=== PATIENT | female | born 1970 | race Caucasian/White ===

== ENCOUNTER 2017-01-31 16:48 | Emergency (ER) | payer OTHER ==
[~2017-01-31] VITALS: Ht 160 cm; Wt 90.4 kg
[~2017-01-31 16:48] MED LIST: AMPH20TA2 PO; ASPEC81 PO; CARB200T PO; CLON0.5T3 PO; HYDR2TAB2 PO; LEVO112T4 PO; LURA40TA PO; ONDA4TAB46 PO; PROM25SU28 PR; SUMA6KIT IM; TOPI25TA10 PO
[2017-01-31 16:50] VITALS: TEMP 36.9; O2SAT 97; Ht 160 cm; Wt 90.4 kg
[2017-01-31] MEDS ORDERED: ONDANSETRON INJ 2 MG/ML 2 ML VIAL IV STA (17:09)
[2017-01-31] MEDS ORDERED: LORAZEPAM 2 MG/ML 1 ML VIAL IV STA (17:09)
[2017-01-31 17:43] LABS: BASO % 0.3 %; BASO ABS # 0.03 K/uL (0-0.2); COMPLETE YES; EOS % 0.1 %; HEMATOCRIT 45.7 % (37-47); IG% 0.4 %; LYMPH % 17.5 %; LYMPH ABS # 1.56 K/uL (1.2-3.4); MEAN CELL VOLUME 87.2 fL (80-100); MEAN CORPUSCULAR HEMOGLOBIN 29.4 pg (25-34); MEAN CORPUSCULAR HGB CONC 33.7 g/dl (32-36); MEAN PLATELET VOLUME 9.3 fL (7.4-10.4); MONO % 6.6 %; NEUT % 75.1 %; PLATELET COUNT 209 K/uL (130-400); RED BLOOD COUNT 5.24 M/uL (4.2-5.4)
[2017-01-31 17:56] LABS: POINT OF CARE TROPONIN I < 0.030 ng/ml (0-0.045)
[2017-01-31 18:06] LABS: BUN/CREATININE RATIO 15.1 (10-20); CALCIUM 8.7 mg/dl (8.5-10.1); CREATININE 1.3 mg/dl (0.60-1.20); POTASSIUM 3.9 mmol/L (3.5-5.1)
[2017-01-31] MEDS ORDERED: TOPI200T20 PO (18:18)
[2017-01-31] MEDS ORDERED: HYDR4TAB2 PO (18:18)
[2017-01-31] MEDS ORDERED: HYDR4TAB78 PO (18:18)
[2017-01-31] MEDS ORDERED: LURA1TAB PO (18:18)
[2017-01-31] MEDS ORDERED: ATV5X PO (18:18)
[2017-01-31 18:48] VITALS: PULSE 101
[2017-01-31 18:57] LABS: PARTIAL THROMBOPLASTIN RATIO 0.9; PROTHROMBIN TIME (PATIENT) 11.1 SECONDS (9.0-12.0)
[2017-01-31] MEDS ORDERED: OPTIRAY 320 IV PRN (19:30)
[2017-01-31 19:32] VITALS: BP 114/78
--- NOTE | 2017-01-31 19:40 | DIAGNOSTIC IMAGING REPORT ---
CHEST CTA for PULMONARY ARTERIES CT DOSE: 447.86 mGy.cm HISTORY: Chest pain dyspnea TECHNIQUE: Multiaxial CT images of the chest were performed following the intravenous administration of contrast to evaluate the pulmonary arteries. Maximal intensity projection images were also obtained. COMPARISON STUDY: 12/15/2015 FINDINGS: There is a normal caliber thoracic aorta with no evidence for dissection. There is no evidence for pulmonary embolus. No pleural effusions. No pneumothorax. The liver and spleen are unremarkable. No mediastinal or hilar lymphadenopathy. The central airways are patent. The lungs are clear. IMPRESSION: No evidence for pulmonary embolus. The lungs are clear. Minimal dependent basilar atelectasis. Electronically signed by: Gary Alba M.D. 01/31/2017 7:39 PM Dictated Date/Time: 01/31/2017 7:37 PM
--- NOTE | 2017-01-31 21:12 | EMERGENCY ROOM VISIT NOTE ---
History Report prepared by Flory: Rosy Arevalo Under the Supervision of: Dr. Red Wright M.D. First contact with patient: 16:56 Chief Complaint: CARDIAC ASSESSMENT Stated Complaint: SEVERE MIGRAINE, CHEST PAIN, LIGHT HEADED History of Present Illness The patient is a 46 year old female who presents to the Emergency Room for a cardiac assessment. She was helping her sister clean out the garage today. She states that she was doing a lot of heavy lifting outside in the heat. Around 1pm the patient developed a right-sided headache. She has history of migraines with aura and states that this feels like her typical migraine headaches. The patient then became nauseated and lightheaded. She reports slight swelling in the left side of her neck. She developed left-sided chest pain that was sharp and achy. En route to the ED she developed right-sided chest pain that she describes as similar to indigestion. The patient also notes back spasm but thinks that this is due to all of her heavy lifting today. She has a history of anxiety and panic attacks. She states that she is feeling very anxious and she feels like her heart is racing. She notes tingling in her arms and states that these symptoms feel similar to her previous panic attacks. The patient reports feeling stressed and overwhelmed with things. She states, "I think I just spread myself too thin." She rates her current pain as a 9/10 in severity. The patient does not take any OCP. She denies any recent long trips, recent surgery , any pain or swelling in her legs, and any personal or family history of blood clots. She does not take any blood thinners. The patient does smoke cigarettes. She states that she hadn't smoked for a week in an effort to quit, but she did smoke today. 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 A total of 10 systems reviewed and were otherwise negative. Past Medical & Surgical Medical Problems: (1) Depression (2) Endometriosis (3) Hypothyroidism (4) IBS (irritable bowel syndrome) (5) LFT elevation (6) Migraine (7) Sepsis Surgical Problems: (1) H/O hemorrhoidectomy (2) H/O laparoscopy (3) H/O oophorectomy (4) H/O wisdom tooth extraction (5) H/O: hysterectomy (6) History of appendectomy (7) History of cholecystectomy Family History Diabetes mellitus FHx: cancer FHx: gallbladder disease FHx: heart disease FHx: lung disease Hypertension Kidney disease or stones Seizures Social History Smoking Status: Current Every Day Smoker Alcohol Use: none Drug Use: none Marital Status: , in relationship Housing Status: lives alone Occupation Status: unemployed Current/Historical Medications Scheduled Amphetamine-Dextroamphetamine 20MG (Adderall 20MG), 20 MG PO AFTERNOON Amphetamine-Dextroamphetamine 20MG (Adderall 20MG), 40 MG PO QAM Carbamazepine (Tegretol), 200 MG PO BID Duloxetine Hcl (Cymbalta), 60 MG PO QPM Hydromorphone Hcl (Dilaudid), 4 MG PO TID Levothyroxine Sodium (Levothyroxine Sodium), 280 MCG PO 5XWK Levothyroxine Sodium (Levothyroxine Sodium), 224 MCG PO 2XWK Lurasidone Hcl (Latuda), 20 MG PO HS Topiramate (Topamax), 200 MG PO HS Scheduled PRN Hydromorphone Hcl (Dilaudid), 2-4 MG PO DAILY PRN for Pain Lorazepam (Lorazepam), 0.5 MG PO BID PRN for Anxiety Polyethylene Glycol 3350 (Miralax), 1 TBS PO BID PRN for Constipation Allergies Coded Allergies: NSAIDs (Verified Allergy, Mild, `, 01/05/16) Acetaminophen (Verified Allergy, Unknown, VOMITING, RASH, 01/05/16) Nabumetone (Verified Allergy, Unknown, swelling, 01/05/16) Physical Exam Vital Signs Date Time Temp Pulse Resp B/P (MAP) Pulse Ox O2 Delivery O2 Flow Rate FiO2 01/31/17 19:32 114/78 01/31/17 18:48 101 20 01/31/17 18:31 138/87 01/31/17 18:18 109 19 01/31/17 18:03 138/87 6/17/17 18:01 138/87 01/31/17 17:48 116 15 01/31/17 17:38 Room Air 01/31/17 17:31 140/85 01/31/17 17:18 117 20 01/31/17 17:05 121 01/31/17 17:01 161/106 01/31/17 16:50 36.9 127 18 92/68 97 Room Air Physical Exam Constitutional: Vital signs reviewed. Eyes: Pupils are equal round reactive to light. Conjunctiva are noninjected. ENT: Pharynx is clear without erythema or exudate. Mucous membranes are moist. Neck supple without meningeal signs. Respiratory: Clear to auscultation bilaterally. Breath sounds are equal bilaterally. Cardiovascular: Tachycardic rate and regular rhythm. No rubs or gallops. GI: Soft, nondistended and nontender. Bowel sounds are present. Musculoskeletal: Tenderness to the left upper ribs and sternum. No peripheral edema. No lower extremity tenderness. Integumentary: No cyanosis. Neurological: The patient is awake and alert. Cranial nerves II-XII are intact. Motor is 5 out of 5 all extremities. Sensation is intact to light touch all extremities. Normal speech. No pronator drift. No limb ataxia. Psychiatric: Anxious. Medical Decision & Procedures ER Provider Diagnostic Interpretation: Radiology results as stated below per my review and the radiologist's interpretation: CHEST CTA for PULMONARY ARTERIES CT DOSE: 447.86 mGy.cm HISTORY: Chest pain dyspnea TECHNIQUE: Multiaxial CT images of the chest were performed following the intravenous administration of contrast to evaluate the pulmonary arteries. Maximal intensity projection images were also obtained. COMPARISON STUDY: 12/15/2015 FINDINGS: There is a normal caliber thoracic aorta with no evidence for dissection. There is no evidence for pulmonary embolus. No pleural effusions. No pneumothorax. The liver and spleen are unremarkable. No mediastinal or hilar lymphadenopathy. The central airways are patent. The lungs are clear. IMPRESSION: No evidence for pulmonary embolus. The lungs are clear. Minimal dependent basilar atelectasis. Electronically signed by: Gary Alba M.D. 01/31/2017 7:39 PM Dictated Date/Time: 01/31/2017 7:37 PM Laboratory Results 01/31/17 17:30 Red Blood Count 5.24, Mean Corpuscular Volume 87.2, Mean Corpuscular Hemoglobin 29.4, Mean Corpuscular Hemoglobin Concent 33.7, Mean Platelet Volume 9.3, Neutrophils (%) (Auto) 75.1, Lymphocytes (%) (Auto) 17.5, Monocytes (%) (Auto) 6.6, Eosinophils (%) (Auto) 0.1, Basophils (%) (Auto) 0.3, Neutrophils # (Auto) 6.67, Lymphocytes # (Auto) 1.56, Monocytes # (Auto) 0.59, Eosinophils # (Auto) 0.01, Basophils # (Auto) 0.03 01/31/17 17:30 Test 01/31/17 17:30 01/31/17 17:37 01/31/17 18:35 White Blood Count 8.90 K/uL (4.8-10.8) Red Blood Count 5.24 M/uL (4.2-5.4) Hemoglobin 15.4 g/dL (12.0-16.0) Hematocrit 45.7 % (37-47) Mean Corpuscular Volume 87.2 fL (80-100) Mean Corpuscular Hemoglobin 29.4 pg (25-34) Mean Corpuscular Hemoglobin Concent 33.7 g/dl (32-36) Platelet Count 209 K/uL (130-400) Mean Platelet Volume 9.3 fL (7.4-10.4) Neutrophils (%) (Auto) 75.1 % Lymphocytes (%) (Auto) 17.5 % Monocytes (%) (Auto) 6.6 % Eosinophils (%) (Auto) 0.1 % Basophils (%) (Auto) 0.3 % Neutrophils # (Auto) 6.67 K/uL (1.4-6.5) Lymphocytes # (Auto) 1.56 K/uL (1.2-3.4) Monocytes # (Auto) 0.59 K/uL (0.11-0.59) Eosinophils # (Auto) 0.01 K/uL (0-0.5) Basophils # (Auto) 0.03 K/uL (0-0.2) RDW Standard Deviation 44.0 fL (36.4-46.3) RDW Coefficient of Variation 13.7 % (11.5-14.5) Immature Granulocyte % (Auto) 0.4 % Immature Granulocyte # (Auto) 0.04 K/uL (0.00-0.02) Anion Gap 11.0 mmol/L (3-11) Est Creatinine Clear Calc Drug Dose 58.3 ml/min Estimated GFR () 57.4 Estimated GFR (Non- 49.5 BUN/Creatinine Ratio 15.1 (10-20) Calcium Level 8.7 mg/dl (8.5-10.1) Bedside D-Dimer > 450 ng/mlFEU (0-450) Bedside Troponin I < 0.030 ng/ml (0-0.045) Prothrombin Time 11.1 SECONDS (9.0-12.0) Prothromb Time International Ratio 1.0 (0.9-1.1) Activated Partial Thromboplast Time 24.5 SECONDS (21.0-31.0) Partial Thromboplastin Ratio 0.9 Laboratory results as reviewed by me. Medications Administered Medications (Trade) Dose Ordered Sig/Amy Route Start Time Stop Time Status Last Admin Dose Admin Lorazepam (Ativan Inj) 1 mg NOW STAT IV 01/31/17 17:09 01/31/17 17:11 DC 01/31/17 17:09 1 MG Ondansetron HCl (Zofran Inj) 4 mg NOW STAT IV 01/31/17 17:09 01/31/17 17:11 DC 01/31/17 17:09 4 MG ECG Indication: chest pain Rate (beats per minute): 118 Rhythm: sinus tachycardia Findings: Q waves (lead 3), no acute ischemic change, no ectopy Comparison ECG Date: 12/21/2015 Change: no significant change ED Course 1656: The patient was evaluated in room C3. A complete history and physical exam was performed. 1709: Zofran 4 mg IV, Ativan 1 mg IV 1758: I reassessed the patient and talked to her about her elevated d-dimer. She agreed to get a CT of her chest. She is feeling much less anxious. 1944: I reassessed the patient at this time. She is feeling better and resting comfortably. I discussed the results and treatment plan with the patient. I answered all pertaining questions that she had. She expressed understanding and verbalized agreement. The patient will be discharged home. Medical Decision This is a 46-year-old female presents with headache and chest pain. Differential diagnosis includes pulmonary embolism, panic attack, generalized anxiety disorder, migraine headache, acute coronary syndrome. I did perform a limited focused review of portions of the patient's old chart on the electronic medical record. The patient has had no recent pertinent visits to this hospital. She was also seen here in 2015 for chest pain thought to be from a panic attack. Medication Reconciliation: I attest that I have personally reviewed the patient' s current medication list. Blood Pressure Screening: Patient was found to have normal blood pressure on screening and does not require follow-up. I did evaluate the patient as noted above. The patient is presenting with a migraine headache. She states it feels like her previous migraines. She is neurologically intact. She takes Dilaudid for her migraines and took some prior to arrival. She also has chest discomfort. She describes it as sharp and aching. It is reproducible on examination. She is tachycardic but she does state that she feels anxious. She has had previous chest pain secondary to anxiety according to her. IV access was established. The patient was placed on a continuous cardiac monitor technician. I did order and personally review the patient' s 12-lead EKG and chest x-ray as described above. I did order and review the patient's blood work as noted in the electronic medical record. Troponin is negative. D-dimer is elevated. After discussion with the patient, I did order a CT of the chest. I did review the images myself as well as the radiology report as described above. There is no evidence of pulmonary embolism or acute process. I did treat the patient with Ativan and Zofran. On reevaluation the patient is feeling much better. She still has her migraine but her anxiety and chest pain are improved. Although her chest pain is reproducible, I did recommend close follow up with her doctor. She was discharged in good condition. Impression Primary Impression: Left sided chest pain Additional Impression: Migraine with aura Scribe Attestation The scribe's documentation has been prepared under my direct and personally reviewed by me in its entirety. I confirm that the note above accurately reflects all work, treatment, procedures, and medical decision making performed by me. Departure Information Dispostion Home / Self-Care Referrals Timoteo Muniz M.D. (PCP) Forms IMPORTANT VISIT INFORMATION Patient Instructions ED Chest Pain Atypical Unkn Cause, Headaches Migraine and Tension, My [facility] Additional Instructions You have been examined and treated today on an emergency basis only. This is not a substitute for, or an effort to provide, complete comprehensive medical care. It is impossible to recognize and treat all injuries or illnesses in a single emergency department visit. It is therefore important that you follow up closely with your physician. Call as soon as possible for an appointment. Return for worsening symptoms or if you develop fever, numbness or weakness on one side of your body, difficulties with your speech or walking, or any other concerning symptoms. Problem Qualifiers Additional Impression: Migraine with aura Status migrainosus presence: without status migrainosus Intractability: not intractable Qualified Codes: G43.109 - Migraine with aura, not intractable, without status migrainosus
[2017-01-31] MEDS ORDERED: CARB200T PO (22:18)
[2017-01-31] MEDS ORDERED: DULO60CA44 PO (22:28)
[2017-01-31] MEDS ORDERED: AMPH20TA2 PO (22:49)
[2017-01-31] MEDS ORDERED: POLY335025 PO (22:49)
[2017-03-26] MEDS ORDERED: MUPIOIN4 TOP (06:12)
== END 2017-01-31 20:01 | disposition home or self-care (01) ==
LOC: C.EDB 16:49 → C.EDC 20:01
DX: R07.9 Chest pain, unspecified (principal); G43.109 Migraine with aura, not intractable, without status migrainosus; F33.41 Major depressive disorder, recurrent, in partial remission; N80.9 Endometriosis, unspecified; E03.9 Hypothyroidism, unspecified; K58.9 Irritable bowel syndrome, unspecified; Z83.3 Family history of diabetes mellitus; Z82.49 Family history of ischemic heart disease and other diseases of the circulatory system; Z82.0 Family history of epilepsy and other diseases of the nervous system; F17.200 Nicotine dependence, unspecified, uncomplicated

== ENCOUNTER 2017-02-01 04:54 | Emergency (ER) | payer OTHER ==
[~2017-02-01] VITALS: Ht 160 cm; Wt 90.9 kg
[~2017-02-01 04:54] MED LIST changes: -ASPEC81 PO; +ATV5X PO; -CLON0.5T3 PO; +DULO60CA44 PO; -HYDR2TAB2 PO; +HYDR4TAB2 PO; +HYDR4TAB78 PO; +LURA1TAB PO; -LURA40TA PO; -ONDA4TAB46 PO; +POLY335025 PO; -PROM25SU28 PR; -SUMA6KIT IM; +TOPI200T20 PO; -TOPI25TA10 PO
[2017-02-01 05:02] VITALS: TEMP 37; Ht 160 cm; Wt 90.9 kg
[2017-02-01] MEDS ORDERED: ONDANSETRON INJ 2 MG/ML 2 ML VIAL IV STA (05:26)
[2017-02-01] MEDS ORDERED: LORAZEPAM 1 MG TAB PO STA (05:26)
[2017-02-01 05:34] LABS: BASO % 0.3 %; BASO ABS # 0.03 K/uL (0-0.2); COMPLETE YES; EOS % 0.2 %; HEMATOCRIT 41.7 % (37-47); IG% 0.3 %; LYMPH % 10.1 %; LYMPH ABS # 1.19 K/uL (1.2-3.4); MEAN CELL VOLUME 87.8 fL (80-100); MEAN CORPUSCULAR HEMOGLOBIN 28.8 pg (25-34); MEAN CORPUSCULAR HGB CONC 32.9 g/dl (32-36); MEAN PLATELET VOLUME 9.1 fL (7.4-10.4); MONO % 7.5 %; NEUT % 81.6 %; PLATELET COUNT 193 K/uL (130-400); RED BLOOD COUNT 4.75 M/uL (4.2-5.4); WHITE BLOOD COUNT 11.73 K/uL (4.8-10.8)
[2017-02-01 05:55] LABS: BUN/CREATININE RATIO 14.6 (10-20); CALCIUM 8.4 mg/dl (8.5-10.1); CREATININE 1.5 mg/dl (0.60-1.20); POTASSIUM 3.9 mmol/L (3.5-5.1)
[2017-02-01 05:57] LABS: URINE APPEARANCE CLEAR (CLEAR); URINE BILIRUBIN NEG (NEG); URINE COLOR YELLOW; URINE EPITHELIAL CELL AUTO >30 /lpf (0-5); URINE NITRITE NEG (NEG); URINE SPECIFIC GRAVITY > 1.045 (1.000-1.030); UROBILINOGEN NEG (NEG); ZZUR CULT IF INDIC CLEAN CATCH NO
[2017-02-01 06:02] LABS: MANUAL MICROSCOPIC REQUIRED? NO; REVIEW REQ? NO
[2017-02-01 06:05] LABS: ALB/GLOB RATIO 1.1 (0.9-2); THYROID STIMULATING HORMONE 2.84 uIu/ml (0.300-4.500)
[2017-02-01 06:25] LABS: BENZODIAZEPINE, URINE NEG (NEG); COCAINE,URINE NEG (NEG); PHENCYCLIDINE, URINE NEG (NEG)
[2017-02-01 06:34] VITALS: BP 92/63; PULSE 108; O2SAT 96
--- NOTE | 2017-02-01 06:38 | EMERGENCY ROOM VISIT NOTE ---
History First contact with patient: 05:05 Chief Complaint: CHEST PAIN Stated Complaint: DIZZY, CHEST PAIN Nursing Triage Summary: pt states she was here last evening and went home and is not feeling any better , c/o migraine, nausea and chest pain History of Present Illness The patient is a 46 year old female who presents to the Emergency Room with complaints of chest pain, back pain, left hand cramping, migraine headache and "charley horses in her neck." The patient was seen here last evening for similar symptoms. She developed cramps in her chest, neck and back after lifting heavy furniture today. She states the pain is crampy in nature. She has a migraine headache and does report a history of migraines. She states she has had cramping of her left hand. She reports her heart has been racing. She has also had cramping in her hips. She rates her discomfort a 10/10. She is not taking any medication at home. She states her symptoms did improve with treatment here earlier. She denies shortness of breath, abdominal pain, nausea , vomiting, fevers or chills. Review of Systems A complete 10 point review of systems was reviewed with the patient with pertinent positives and negatives as per history of present illness. All else were negative. Past Medical/Surgical History Medical Problems: (1) Depression (2) Endometriosis (3) Hypothyroidism (4) IBS (irritable bowel syndrome) (5) LFT elevation (6) Migraine (7) Sepsis Surgical Problems: (1) H/O hemorrhoidectomy (2) H/O laparoscopy (3) H/O oophorectomy (4) H/O wisdom tooth extraction (5) H/O: hysterectomy (6) History of appendectomy (7) History of cholecystectomy Family History Diabetes mellitus FHx: cancer FHx: gallbladder disease FHx: heart disease FHx: lung disease Hypertension Kidney disease or stones Seizures Social History Smoking Status: Current Every Day Smoker Alcohol Use: none Drug Use: none Marital Status: , in relationship Housing Status: lives alone Occupation Status: unemployed Current/Historical Medications Scheduled Amphetamine-Dextroamphetamine 20MG (Adderall 20MG), 20 MG PO AFTERNOON Amphetamine-Dextroamphetamine 20MG (Adderall 20MG), 40 MG PO QAM Carbamazepine (Tegretol), 200 MG PO BID Duloxetine Hcl (Cymbalta), 60 MG PO QPM Hydromorphone Hcl (Dilaudid), 4 MG PO TID Levothyroxine Sodium (Levothyroxine Sodium), 280 MCG PO 5XWK Levothyroxine Sodium (Levothyroxine Sodium), 224 MCG PO 2XWK Lurasidone Hcl (Latuda), 20 MG PO HS Topiramate (Topamax), 200 MG PO HS Scheduled PRN Hydromorphone Hcl (Dilaudid), 2-4 MG PO DAILY PRN for Pain Lorazepam (Lorazepam), 0.5 MG PO BID PRN for Anxiety Polyethylene Glycol 3350 (Miralax), 1 TBS PO BID PRN for Constipation Allergies Coded Allergies: NSAIDs (Verified Allergy, Mild, `, 02/01/17) Acetaminophen (Verified Allergy, Unknown, VOMITING, RASH, 02/01/17) Nabumetone (Verified Allergy, Unknown, swelling, 02/01/17) Physical Exam Vital Signs Date Time Temp Pulse Resp B/P (MAP) Pulse Ox O2 Delivery O2 Flow Rate FiO2 02/01/17 06:34 108 18 92/63 96 Room Air 02/01/17 05:02 37.0 129 18 148/88 95 Room Air Physical Exam VITALS: Vitals are noted on the nurse's note and reviewed by myself. Vital signs stable. GENERAL: This is a 46-year-old female, mildly anxious appearing, nondiaphoretic , well-developed well-nourished. HEENT: Normocephalic. PERRLA. EOMI. Nares patent. Mucous membranes moist. Neck is supple without nuchal rigidity. HEART: Regular rate and rhythm without murmurs gallops or rubs. LUNGS: Clear to auscultation bilaterally without wheezes, rales or rhonchi. No retractions or accessory muscle use. ABDOMEN: Positive bowel sounds x 4. Soft, nontender to palpation. MUSCULOSKELETAL: Strength 5/5 in all extremities. NEURO: Patient was alert and oriented to person place and time. Medical Decision & Procedures ER Provider Diagnostic Interpretation: CHEST X-RAY: No cardiomegaly. No pulmonary congestion or infiltrate. Bony thorax unremarkable. Laboratory Results 02/01/17 05:20 Red Blood Count 4.75, Mean Corpuscular Volume 87.8, Mean Corpuscular Hemoglobin 28.8, Mean Corpuscular Hemoglobin Concent 32.9, Mean Platelet Volume 9.1, Neutrophils (%) (Auto) 81.6, Lymphocytes (%) (Auto) 10.1, Monocytes (%) (Auto) 7.5, Eosinophils (%) (Auto) 0.2, Basophils (%) (Auto) 0.3, Neutrophils # (Auto) 9.57, Lymphocytes # (Auto) 1.19, Monocytes # (Auto) 0.88, Eosinophils # (Auto) 0.02, Basophils # (Auto) 0.03 02/01/17 05:20 Test 02/01/17 00:00 02/01/17 05:20 02/01/17 05:44 Urine Color YELLOW Urine Appearance CLEAR (CLEAR) Urine pH 5.0 (4.5-7.5) Urine Specific [place] > 1.045 (1.000-1.030) Urine Protein NEG (NEG) Urine Glucose (UA) 3+ (NEG) Urine Ketones TRACE (NEG) Urine Occult Blood 2+ (NEG) Urine Nitrite NEG (NEG) Urine Bilirubin NEG (NEG) Urine Urobilinogen NEG (NEG) Urine Leukocyte Esterase NEG (NEG) Urine WBC (Auto) 1-5 /hpf (0-5) Urine RBC (Auto) 10-30 /hpf (0-4) Urine Hyaline Casts (Auto) 1-5 /lpf (0-5) Urine Epithelial Cells (Auto) >30 /lpf (0-5) Urine Bacteria (Auto) NEG (NEG) Urine Test NEG (NEG) Urine Opiates Screen POS (NEG) Urine Methadone, Qualitative NEG (NEG) Urine Barbiturates NEG (NEG) Urine Phencyclidine (PCP) Level NEG (NEG) Ur Amphetamine/Methamphetamine NEG (NEG) MDMA (Ecstasy) Screen NEG (NEG) Urine Benzodiazepines Screen NEG (NEG) Urine Cocaine Metabolite NEG (NEG) Urine Marijuana (THC) NEG (NEG) White Blood Count 11.73 K/uL (4.8-10.8) Red Blood Count 4.75 M/uL (4.2-5.4) Hemoglobin 13.7 g/dL (12.0-16.0) Hematocrit 41.7 % (37-47) Mean Corpuscular Volume 87.8 fL (80-100) Mean Corpuscular Hemoglobin 28.8 pg (25-34) Mean Corpuscular Hemoglobin Concent 32.9 g/dl (32-36) Platelet Count 193 K/uL (130-400) Mean Platelet Volume 9.1 fL (7.4-10.4) Neutrophils (%) (Auto) 81.6 % Lymphocytes (%) (Auto) 10.1 % Monocytes (%) (Auto) 7.5 % Eosinophils (%) (Auto) 0.2 % Basophils (%) (Auto) 0.3 % Neutrophils # (Auto) 9.57 K/uL (1.4-6.5) Lymphocytes # (Auto) 1.19 K/uL (1.2-3.4) Monocytes # (Auto) 0.88 K/uL (0.11-0.59) Eosinophils # (Auto) 0.02 K/uL (0-0.5) Basophils # (Auto) 0.03 K/uL (0-0.2) RDW Standard Deviation 45.7 fL (36.4-46.3) RDW Coefficient of Variation 14.1 % (11.5-14.5) Immature Granulocyte % (Auto) 0.3 % Immature Granulocyte # (Auto) 0.04 K/uL (0.00-0.02) Anion Gap 10.0 mmol/L (3-11) Est Creatinine Clear Calc Drug Dose 50.7 ml/min Estimated GFR () 48.3 Estimated GFR (Non- 41.6 BUN/Creatinine Ratio 14.6 (10-20) Calcium Level 8.4 mg/dl (8.5-10.1) Total Bilirubin 0.2 mg/dl (0.2-1) Aspartate Amino Transf (AST/SGOT) 13 U/L (15-37) Alanine Aminotransferase (ALT/SGPT) 38 U/L (12-78) Alkaline Phosphatase 118 U/L (45-117) Total Protein 8.0 gm/dl (6.4-8.2) Albumin 4.1 gm/dl (3.4-5.0) Globulin 3.9 gm/dl (2.5-4.0) Albumin/Globulin Ratio 1.1 (0.9-2) Thyroid Stimulating Hormone (TSH) 2.840 uIu/ml (0.300-4.500) Bedside Troponin I < 0.030 ng/ml (0-0.045) Medications Administered Medications (Trade) Dose Ordered Sig/Amy Route Start Time Stop Time Status Last Admin Dose Admin Lorazepam (Ativan Tab) 1 mg NOW STAT PO 02/01/17 05:26 02/01/17 05:28 DC 02/01/17 05:35 1 MG Ondansetron HCl (Zofran Inj) 4 mg NOW STAT IV 02/01/17 05:26 02/01/17 05:29 DC 02/01/17 05:35 4 MG ECG Rate (beats per minute): 120 Rhythm: sinus tachycardia Findings: no acute ischemic change, no ectopy ED Course The patient was evaluated as above. Labs were drawn and IV access was obtained. Patient was medicated with 1 mg Ativan and 4 mg Zofran. Patient was reevaluated and findings were discussed. The patient would like to be discharged as soon as possible. Discharge instructions were reviewed with the patient. The patient verbalized understanding of my assessment and treatment plan and was discharged home in good condition. Medical Decision Differential diagnosis includes acute coronary syndrome, pulmonary embolism, pneumothorax, pericarditis, myocarditis, endocarditis, anxiety, musculoskeletal pain, GERD, costochondritis, pneumonia, among others. The patient is a 46-year-old female who presents today complaining of chest pain and body cramps. Labs revealed a mild leukocytosis. Creatinine is minimally bumped. Glucose is elevated, consistent with the patient's poorly controlled diabetes. Troponin was negative. EKG shows no ischemia. The patient was seen here earlier in the day and had a negative CT angiogram of the chest. She had significant improvement of her symptoms with Ativan. Her symptoms may be related to anxiety. The patient asked to be discharged home and I feel this is reasonable given her negative workup today. She was instructed to follow up closely with her PCP. The patient's case was reviewed with Dr. Scott, ED attending physician, who agreed with my assessment and treatment plan. Based on the patient's presentation and work up, I feel the patient is stable for outpatient treatment. The patient was educated to return to the emergency department for any worsening of their current condition or new/concerning symptoms. She will follow up with her PCP. Impression Primary Impression: Left sided chest pain Departure Information Dispostion Home / Self-Care Condition GOOD Referrals Timoteo Muniz M.D. (PCP) Patient Instructions My [facility] Additional Instructions For pain control, you can use the following [id number] medicines (if >12 yo): - Regular strength (325mg/tab) Tylenol (acetaminophen) 2 tabs every 4-6 hours as needed. Do not exceed 12 tablets in a 24 hour period. Avoid taking more than 4 grams (4000 mg) of Tylenol per day. This includes any other sources of acetaminophen you may take on a regular basis. - Regular strength (200 mg/tab) Advil (ibuprofen) 1-2 tabs every 4-6 hours as needed. Do not exceed a dose of 3200 mg per day. Call your primary care provider tomorrow to schedule follow-up. Return to the ER with any worsening or new/concerning symptoms.
--- NOTE | 2017-02-01 09:00 | DIAGNOSTIC IMAGING REPORT ---
CHEST ONE VIEW PORTABLE HISTORY: Atypical chest pain COMPARISON: None. FINDINGS: The lungs are clear. Cardiac silhouette is normal in size. No pleural effusions. No pneumothorax. IMPRESSION: No acute process. Electronically signed by: Stephen Sanchez M.D. 02/01/2017 8:59 AM Dictated Date/Time: 02/01/2017 8:58 AM
[2017-02-04 13:05] LABS: COD UR NEGATIVE NG/ML (CUTOFF=50); HYDROCOD UR NEGATIVE NG/ML (CUTOFF=50); HYDROMOR UR 16300 NG/ML (CUTOFF=50); MORPHINE UR NEGATIVE NG/ML (CUTOFF=50); NORHYDROCODONE CONF UR NEGATIVE NG/ML (CUTOFF=50); OXYMORPH UR 1910 NG/ML (CUTOFF=50)
[2017-03-26] MEDS ORDERED: MUPIOIN4 TOP (06:12)
== END 2017-02-01 06:43 | disposition home or self-care (01) ==
LOC: C.EDB 04:56
DX: R07.9 Chest pain, unspecified (principal); G43.909 Migraine, unspecified, not intractable, without status migrainosus; F32.9 Major depressive disorder, single episode, unspecified; N80.9 Endometriosis, unspecified; E03.9 Hypothyroidism, unspecified; K58.9 Irritable bowel syndrome, unspecified; Z90.710 Acquired absence of both cervix and uterus; Z90.49 Acquired absence of other specified parts of digestive tract; Z83.3 Family history of diabetes mellitus; Z80.9 Family history of malignant neoplasm, unspecified; Z82.49 Family history of ischemic heart disease and other diseases of the circulatory system; Z84.1 Family history of disorders of kidney and ureter; Z82.0 Family history of epilepsy and other diseases of the nervous system; F17.210 Nicotine dependence, cigarettes, uncomplicated; Z79.899 Other long term (current) drug therapy

== ENCOUNTER 2017-04-01 05:31 | Emergency (ER) | payer OTHER ==
[~2017-04-01] VITALS: Ht 162.6 cm; Wt 93.0 kg
[2017-04-01 05:31] VITALS: TEMP 37; O2SAT 98; Ht 162.6 cm; Wt 93.0 kg
[~2017-04-01 05:31] MED LIST changes: +MUPIOIN4 TOP
[2017-04-01] MEDS ORDERED: LORAZEPAM 2 MG/ML 1 ML VIAL IV STA ×2 (05:38→07:46)
[2017-04-01] MEDS ORDERED: ASPI81TA28 PO (06:06)
[2017-04-01] MEDS ORDERED: CARB100C2 PO ×2 (06:10)
[2017-04-01] MEDS ORDERED: CLON0.5T3 PO (06:13)
[2017-04-01] MEDS ORDERED: ALBU18002 PO (06:14)
[2017-04-01] MEDS ORDERED: ONDA4TAB46 PO (06:14)
--- NOTE | 2017-04-01 06:14 | EMERGENCY ROOM VISIT NOTE ---
ED Visit Note First contact with patient: 05:33 I have personally evaluated and examined this patient. I agree with assessment and plan of Aracelis Ervin PA-C.
[2017-04-01] MEDS ORDERED: PROM1SUP19 PR (06:15)
[2017-04-01] MEDS ORDERED: SUMA6KIT INJ (06:16)
[2017-04-01 06:21] LABS: BASO % 0.6 %; BASO ABS # 0.04 K/uL (0-0.2); COMPLETE YES; EOS % 1.5 %; HEMATOCRIT 41.4 % (37-47); IG% 0.5 %; LYMPH % 29.2 %; MEAN CORPUSCULAR HEMOGLOBIN 29.2 pg (25-34); MEAN CORPUSCULAR HGB CONC 33.6 g/dl (32-36); MONO % 6.9 %; NEUT % 61.3 %; PLATELET COUNT 206 K/uL (130-400); RED BLOOD COUNT 4.76 M/uL (4.2-5.4)
--- NOTE | 2017-04-01 06:33 | DIAGNOSTIC IMAGING REPORT ---
CHEST ONE VIEW PORTABLE CLINICAL HISTORY: Atypical chest pain COMPARISON STUDY: 02/01/2017 FINDINGS: The cardiac and mediastinal contours are normal. There is no evidence of focal pulmonary consolidation. There is no evidence of failure. No pleural effusions are visualized.[ IMPRESSION: No active disease in the chest. Electronically signed by: Tristan Avery M.D. 04/01/2017 6:32 AM Dictated Date/Time: 04/01/2017 6:32 AM
[2017-04-01 06:38] LABS: ALT/SGPT 46 U/L (12-78); AST/SGOT 17 U/L (15-37); BLOOD UREA NITROGEN 18 mg/dl (7-18); CALCIUM 8.7 mg/dl (8.5-10.1); CARBON DIOXIDE 27 mmol/L (21-32); CHLORIDE 105 mmol/L (98-107); GLUCOSE 166 mg/dl (70-99); POTASSIUM 3.7 mmol/L (3.5-5.1); SODIUM 138 mmol/L (136-145)
[2017-04-01 06:40] LABS: ALKALINE PHOSPHATASE 125 U/L (45-117)
--- NOTE | 2017-04-01 07:50 | EMERGENCY ROOM VISIT NOTE ---
ED Visit Note First contact with patient: 07:46 The patient was signed out to me at shift change by Aracelis Ervin PA-C. Please see her dictation for hospital course. The patient came to the emergency department complaining of chest pain. The patient does describe significant stressors as she has to take care of her mother at home. While in the emergency department, the patient got up and went to the bathroom. She states that a few minutes after she came back from the bathroom she began to feel tightness all over her body, numbness and tingling and felt like her throat was closing. She states that after a few minutes it resolved. She agrees that this may be secondary to anxiety. She was feeling much better upon my evaluation. She has not had any pleuritic chest pain or shortness of breath. I did order an additional 0.5 mg IV Ativan. The patient states she has a prescription for Ativan at home. A repeat troponin was pending at the time of sign out and was collected at 8 AM. The repeat troponin was negative. Additionally, I did review patient's previous visits. Her glucose does seem to be trending upward. I recommended that she contact her family doctor to discuss her blood glucose levels. She stated she had a family doctor and could do that. She has a prescription for Ativan at home. She should return with worsening symptoms, otherwise, she should follow up with her family doctor. 04/01/17 06:00 Red Blood Count 4.76, Mean Corpuscular Volume 87.0, Mean Corpuscular Hemoglobin 29.2, Mean Corpuscular Hemoglobin Concent 33.6, Mean Platelet Volume 9.0, Neutrophils (%) (Auto) 61.3, Lymphocytes (%) (Auto) 29.2, Monocytes (%) (Auto) 6.9, Eosinophils (%) (Auto) 1.5, Basophils (%) (Auto) 0.6, Neutrophils # (Auto) 3.98, Lymphocytes # (Auto) 1.90, Monocytes # (Auto) 0.45, Eosinophils # (Auto) 0.10, Basophils # (Auto) 0.04 04/01/17 06:00 Test 04/01/17 06:00 04/01/17 08:35 White Blood Count 6.50 K/uL (4.8-10.8) Red Blood Count 4.76 M/uL (4.2-5.4) Hemoglobin 13.9 g/dL (12.0-16.0) Hematocrit 41.4 % (37-47) Mean Corpuscular Volume 87.0 fL (80-100) Mean Corpuscular Hemoglobin 29.2 pg (25-34) Mean Corpuscular Hemoglobin Concent 33.6 g/dl (32-36) Platelet Count 206 K/uL (130-400) Mean Platelet Volume 9.0 fL (7.4-10.4) Neutrophils (%) (Auto) 61.3 % Lymphocytes (%) (Auto) 29.2 % Monocytes (%) (Auto) 6.9 % Eosinophils (%) (Auto) 1.5 % Basophils (%) (Auto) 0.6 % Neutrophils # (Auto) 3.98 K/uL (1.4-6.5) Lymphocytes # (Auto) 1.90 K/uL (1.2-3.4) Monocytes # (Auto) 0.45 K/uL (0.11-0.59) Eosinophils # (Auto) 0.10 K/uL (0-0.5) Basophils # (Auto) 0.04 K/uL (0-0.2) RDW Standard Deviation 44.3 fL (36.4-46.3) RDW Coefficient of Variation 14.1 % (11.5-14.5) Immature Granulocyte % (Auto) 0.5 % Immature Granulocyte # (Auto) 0.03 K/uL (0.00-0.02) Anion Gap 6.0 mmol/L (3-11) Est Creatinine Clear Calc Drug Dose 59.8 ml/min Estimated GFR () 57.0 Estimated GFR (Non- 49.2 BUN/Creatinine Ratio 14.0 (10-20) Calcium Level 8.7 mg/dl (8.5-10.1) Total Bilirubin 0.3 mg/dl (0.2-1) Direct Bilirubin < 0.1 mg/dl (0-0.2) Aspartate Amino Transf (AST/SGOT) 17 U/L (15-37) Alanine Aminotransferase (ALT/SGPT) 46 U/L (12-78) Alkaline Phosphatase 125 U/L (45-117) Total Protein 7.8 gm/dl (6.4-8.2) Albumin 3.7 gm/dl (3.4-5.0) Lipase 683 U/L (73-393) Bedside Troponin I < 0.030 ng/ml (0-0.045) DIFFERENTIAL DIAGNOSIS: Aortic dissection, myocarditis, pericarditis, cervical disc disease, costochondritis, herpes zoster, rib fracture, pleuritis, pneumonia , pulmonary embolus, tension pneumothorax, anxiety disorder, somatoform disorder , choledocholithiasis, status, esophagitis, esophageal spasm, esophageal reflux , esophageal rupture, pancreatitis, peptic ulcer disease, cardiac ischemia, ST elevation GA, acute coronary syndrome, arrhythmia, coronary artery vasospasm. vavular heart disease, coronary artery disease, among others.
[2017-04-01 09:10] VITALS: BP 119/64; PULSE 83; O2SAT 100
--- NOTE | 2017-04-01 21:30 | EMERGENCY ROOM VISIT NOTE ---
History First contact with patient: 05:33 Chief Complaint: CHEST PAIN Stated Complaint: CHEST PAIN History of Present Illness The patient is a 47 year old female who presents to the Emergency Room with complaints of midsternal chest pain for the past hour that started while she was making her boyfriend's lunch for today. Patient states she suffers from anxiety and symptoms feel somewhat similar. Pain is currently 3 out of 10. Patient took her Dilaudid this morning like she normally does for her chronic back pain. No prior heart disease. No family history of heart disease. Patient does smoke. Status post hysterectomy in the past. Patient denies dyspnea, fever, chills, abdominal pain, leg pain or swelling, recent travel, back pain, diaphoresis, weakness. She is tolerate by mouth fluids and food. Patient is been here a few other times for her chest pain. No stress test or echo in the past. Review of Systems See HPI for pertinent positives & negatives. A total of 10 systems reviewed and were otherwise negative. Past Medical/Surgical History Medical Problems: (1) Depression (2) Endometriosis (3) Hypothyroidism (4) IBS (irritable bowel syndrome) (5) LFT elevation (6) Migraine (7) Sepsis Surgical Problems: (1) H/O hemorrhoidectomy (2) H/O laparoscopy (3) H/O oophorectomy (4) H/O wisdom tooth extraction (5) H/O: hysterectomy (6) History of appendectomy (7) History of cholecystectomy Family History Diabetes mellitus FHx: cancer FHx: gallbladder disease FHx: heart disease FHx: lung disease Hypertension Kidney disease or stones Seizures Social History Smoking Status: Current Every Day Smoker Alcohol Use: none Drug Use: none Marital Status: , in relationship Housing Status: lives with significant other Occupation Status: unemployed Current/Historical Medications Scheduled Amphetamine-Dextroamphetamine 20MG (Adderall 20MG), 30 MG PO AFTERNOON Amphetamine-Dextroamphetamine 20MG (Adderall 20MG), 40 MG PO QAM Aspirin (Aspirin Ec), 81 MG PO DAILY Carbamazepine (Tegretol), 100 MG PO QAM Carbamazepine (Tegretol), 200 MG PO QPM Clonazepam (Klonopin), 0.5 MG PO BID Duloxetine Hcl (Cymbalta), 60 MG PO QPM Hydromorphone Hcl (Dilaudid), 4 MG PO TID Levothyroxine Sodium (Levothyroxine Sodium), 280 MCG PO 5XWK Levothyroxine Sodium (Levothyroxine Sodium), 224 MCG PO 2XWK Lurasidone Hcl (Latuda), 20 MG PO HS Mupirocin Calcium (Bactroban Nasal), 1 APPLN TOP TID Polyethylene Glycol 3350 (Miralax), 1 TBS PO BID Topiramate (Topamax), 200 MG PO HS Scheduled PRN Albuterol Sulfate (Proair Respiclick), 2 PUFFS PO Q4 PRN for Wheezing Lorazepam (Lorazepam), 0.5 MG PO BID PRN for Anxiety Ondansetron Hcl (Zofran), 8 MG PO BID PRN for Nausea Promethazine (Phenergan Suppository), 25 MG WY q4-6hrs PRN for Nausea Sumatriptan Succinate (Imitrex Statdose), 0.5 ML INJ 1 time only PRN for Migraine Physical Exam Vital Signs Date Time Temp Pulse Resp B/P (MAP) Pulse Ox O2 Delivery O2 Flow Rate FiO2 04/01/17 09:10 83 20 119/64 100 04/01/17 08:52 87 04/01/17 07:37 91 20 153/86 100 Room Air 04/01/17 06:29 88 21 137/85 97 Room Air 04/01/17 06:08 94 18 117/101 97 Room Air 04/01/17 05:44 95 04/01/17 05:31 98 Room Air 04/01/17 05:31 98 Room Air 04/01/17 05:31 37.0 98 17 181/105 98 Room Air Physical Exam VITALS: Vitals are noted on the nurse's note and reviewed by myself. Vital signs stable. GENERAL: Pleasant female anxious-appearing, in no acute distress, nondiaphoretic , well-developed well-nourished. SKIN: The skin was without rashes, erythema, edema, or bruising. There is no tenting of the skin. Capillary reflex less than 2 seconds. HEAD: Normocephalic atraumatic. EARS: External auditory canals clear, tympanic membranes pearly trotter without erythema or effusion bilaterally. EYES: Pupils equal round and reactive to light and accommodation. Conjunctivae without injection, sclerae without icterus. Extraocular movements intact. NOSE: Patent, turbinates without inflammation or discharge. MOUTH: Mucous membranes moist. Pharynx without erythema or exudate. Uvula midline. Airway patent. Tongue does not deviate. NECK: Supple without nuchal rigidity. No lymphadenopathy. No thyromegaly. Cervical spine is nontender. No JVD. HEART: Regular rate and rhythm without murmurs gallops or rubs. Chest nontender to palpation LUNGS: Clear to auscultation bilaterally without wheezes, rales or rhonchi. No dullness to percussion. No retractions or accessory muscle use. ABDOMEN: Positive bowel sounds x 4. Normal tympanic percussion. Soft, nontender, without masses or organomegaly. Gibbons sign negative. No guarding or rebound tenderness. MUSCULOSKELETAL: No muscle atrophy, erythema, or edema noted. NEURO: Patient was alert and oriented to person place and time. Normal sensation to light and sharp touch. No focal neurological deficits. Medical Decision & Procedures Laboratory Results 04/01/17 06:00 Red Blood Count 4.76, Mean Corpuscular Volume 87.0, Mean Corpuscular Hemoglobin 29.2, Mean Corpuscular Hemoglobin Concent 33.6, Mean Platelet Volume 9.0, Neutrophils (%) (Auto) 61.3, Lymphocytes (%) (Auto) 29.2, Monocytes (%) (Auto) 6.9, Eosinophils (%) (Auto) 1.5, Basophils (%) (Auto) 0.6, Neutrophils # (Auto) 3.98, Lymphocytes # (Auto) 1.90, Monocytes # (Auto) 0.45, Eosinophils # (Auto) 0.10, Basophils # (Auto) 0.04 04/01/17 06:00 Test 04/01/17 06:00 04/01/17 08:35 White Blood Count 6.50 K/uL (4.8-10.8) Red Blood Count 4.76 M/uL (4.2-5.4) Hemoglobin 13.9 g/dL (12.0-16.0) Hematocrit 41.4 % (37-47) Mean Corpuscular Volume 87.0 fL (80-100) Mean Corpuscular Hemoglobin 29.2 pg (25-34) Mean Corpuscular Hemoglobin Concent 33.6 g/dl (32-36) Platelet Count 206 K/uL (130-400) Mean Platelet Volume 9.0 fL (7.4-10.4) Neutrophils (%) (Auto) 61.3 % Lymphocytes (%) (Auto) 29.2 % Monocytes (%) (Auto) 6.9 % Eosinophils (%) (Auto) 1.5 % Basophils (%) (Auto) 0.6 % Neutrophils # (Auto) 3.98 K/uL (1.4-6.5) Lymphocytes # (Auto) 1.90 K/uL (1.2-3.4) Monocytes # (Auto) 0.45 K/uL (0.11-0.59) Eosinophils # (Auto) 0.10 K/uL (0-0.5) Basophils # (Auto) 0.04 K/uL (0-0.2) RDW Standard Deviation 44.3 fL (36.4-46.3) RDW Coefficient of Variation 14.1 % (11.5-14.5) Immature Granulocyte % (Auto) 0.5 % Immature Granulocyte # (Auto) 0.03 K/uL (0.00-0.02) Anion Gap 6.0 mmol/L (3-11) Est Creatinine Clear Calc Drug Dose 59.8 ml/min Estimated GFR () 57.0 Estimated GFR (Non- 49.2 BUN/Creatinine Ratio 14.0 (10-20) Calcium Level 8.7 mg/dl (8.5-10.1) Total Bilirubin 0.3 mg/dl (0.2-1) Direct Bilirubin < 0.1 mg/dl (0-0.2) Aspartate Amino Transf (AST/SGOT) 17 U/L (15-37) Alanine Aminotransferase (ALT/SGPT) 46 U/L (12-78) Alkaline Phosphatase 125 U/L (45-117) Total Protein 7.8 gm/dl (6.4-8.2) Albumin 3.7 gm/dl (3.4-5.0) Lipase 683 U/L (73-393) Bedside Troponin I < 0.030 ng/ml (0-0.045) Medications Administered Medications (Trade) Dose Ordered Sig/Amy Route Start Time Stop Time Status Last Admin Dose Admin Lorazepam (Ativan Inj) 1 mg NOW STAT IV 04/01/17 05:38 04/01/17 05:39 DC 04/01/17 05:58 1 MG Lorazepam (Ativan Inj) 0.5 mg NOW STAT IV 04/01/17 07:46 04/01/17 07:48 DC 04/01/17 08:31 0.5 MG ED Course Prior records/ancillary studies reviewed. Triage Nursing notes reviewed. Additional history obtained from EMS. The patient's history was concerning for chest pain. Differential diagnosis: Etiologies such as cardiac ischemia, aortic dissection, pulmonary embolism, pneumonia, pneumothorax, musculoskeletal, infections, pericarditis, myocarditis , esophageal rupture, gastrointestinal, as well as others were entertained. Physical examination: As above. ER treatment provided: Ativan On reassessment the patient felt better. Diagnostic interpretation by me: The electrocardiogram was negative for pathologic change. Normal sinus, normal intervals, no acute ST-T wave changes. Impression normal sinus rhythm interpreted by myself The labs revealed negative troponin and repeat two-hour was pending at time of signout. Mild hyperglycemia without DKA. Mildly elevated lipase. Patient was pain-free. I Do not believe she has pancreatitis. Patient felt 100% after the Ativan. Imaging studies: Chest x-ray with no acute consolidation, pneumothorax or free air per my interpretation Exam and history seem consistent with chest pain mostly could be cardiac in etiology. Patient felt much better after the Ativan. She is well-appearing. Normal EKG. Negative troponin x 2. Patient is advised follow-up family care in a few days or here in the ER sooner for chest pain, difficulty breathing, worsening signs or symptoms or as needed. By the evaluation outlined above emergent etiologies such as cardiac ischemia, aortic dissection, pulmonary embolism, pneumonia, pneumothorax, infections, pericarditis, myocarditis, gastrointestinal, as well as others were deemed relatively unlikely. The pt informed about the findings as listed above. All questions were answered and pleased with the treatment. Return instructions were outlined and the patient was discharged in stable condition. Case reviewed with my attending Case is signed out to REGIS Ward pending repeat troponin and reevaluation stable condition. Medical Decision As above Medication Reconcilliation Current Medication List: was personally reviewed by me Blood Pressure Screening Patient's blood pressure: Elevated blood pressure Blood pressure disposition: Referred to PCP Impression Primary Impression: Substernal precordial chest pain Departure Information Dispostion Home / Self-Care Condition GOOD Referrals Timoteo Muniz M.D. (PCP) Patient Instructions [facility] Additional Instructions Rest and drink plenty of fluids as tolerated. Continue current medications. Avoid strenuous activities and anything that worsens your pain. Resume normal activities once your symptoms resolve. Return to the ER immediately for worsening or persistent chest pain, abdominal pain, vomiting, fevers, chest pains, difficulty breathing, worsening of your condition, or as needed. Follow up with your primary physician in 2-3 days for a recheck of your current condition.
== END 2017-04-01 09:11 | disposition home or self-care (01) ==
LOC: EDBD 05:31 → C.EDA 05:34
DX: R07.2 Precordial pain (principal); E03.9 Hypothyroidism, unspecified; K58.9 Irritable bowel syndrome, unspecified; F32.9 Major depressive disorder, single episode, unspecified; F17.200 Nicotine dependence, unspecified, uncomplicated; Z90.710 Acquired absence of both cervix and uterus; Z90.721 Acquired absence of ovaries, unilateral; Z90.49 Acquired absence of other specified parts of digestive tract; Z98.890 Other specified postprocedural states; Z79.82 Long term (current) use of aspirin; Z79.899 Other long term (current) drug therapy; Z83.3 Family history of diabetes mellitus; Z80.9 Family history of malignant neoplasm, unspecified; Z83.79 Family history of other diseases of the digestive system; Z82.49 Family history of ischemic heart disease and other diseases of the circulatory system; Z84.1 Family history of disorders of kidney and ureter; Z82.0 Family history of epilepsy and other diseases of the nervous system

== ENCOUNTER 2017-04-28 22:29 | Emergency (ER) | payer OTHER ==
[~2017-04-28] VITALS: Ht 160 cm; Wt 94.3 kg
[~2017-04-28 22:29] MED LIST changes: +ALBU18002 PO; +ASPI81TA28 PO; +CARB100C2 PO; -CARB200T PO; +CLON0.5T3 PO; -HYDR4TAB78 PO; +ONDA4TAB46 PO; +PROM1SUP19 PR; +SUMA6KIT INJ
[2017-04-28 22:35] VITALS: TEMP 37; Ht 160 cm; Wt 94.3 kg
[2017-04-28] MEDS ORDERED: LORAZEPAM 1 MG TAB SL STA (23:07)
[2017-04-28 23:52] VITALS: O2SAT 96
--- NOTE | 2017-04-29 00:38 | EMERGENCY ROOM VISIT NOTE ---
History Report prepared by Flory: Thony Locke Under the Supervision of: Dr. Ronald Scott M.D. First contact with patient: 22:56 Chief Complaint: CHEST PAIN Stated Complaint: CHEST PAIN,SHORTNESS OF BREATH History of Present Illness The patient is a 47 year old female who presents to the Emergency Room with complaints of resolved centralized chest pain beginning shortly prior to arrival. She also complains of centralized "stabbing" back pain, facial numbness , and shortness of breath. She was seen in the ED about a month ago with similar symptoms. The patient states that she has been under a lot of stress lately. She states that she has been taking care of her mother who has Parkinson 's. She states that she has not slept in nearly two days. The patient also states that her son is going through a divorce. She denies any recent recreational drug or alcohol use. She is on Lorazepam for anxiety. The patient denies any suicidal ideation, homicidal ideation or hallucinations. Source of History: patient Onset: Shortly prior to arrival Position: chest (centralized) Timing: resolved Associated Symptoms: + SOB, + back pain (centralized "stabbing"), + numbness (facial) Review of Systems See HPI for pertinent positives & negatives. A total of 10 systems reviewed and were otherwise negative. Past Medical & Surgical Medical Problems: (1) Depression (2) Endometriosis (3) Hypothyroidism (4) IBS (irritable bowel syndrome) (5) LFT elevation (6) Migraine (7) Sepsis Surgical Problems: (1) H/O hemorrhoidectomy (2) H/O laparoscopy (3) H/O oophorectomy (4) H/O wisdom tooth extraction (5) H/O: hysterectomy (6) History of appendectomy (7) History of cholecystectomy Family History Diabetes mellitus FHx: cancer FHx: gallbladder disease FHx: heart disease FHx: lung disease Hypertension Kidney disease or stones Seizures Social History Smoking Status: Current Every Day Smoker Alcohol Use: none Drug Use: none Marital Status: , in relationship Housing Status: lives with significant other Occupation Status: unemployed Current/Historical Medications Scheduled Amphetamine-Dextroamphetamine 20MG (Adderall 20MG), 30 MG PO AFTERNOON Amphetamine-Dextroamphetamine 20MG (Adderall 20MG), 40 MG PO QAM Aspirin (Aspirin Ec), 81 MG PO DAILY Carbamazepine (Tegretol), 100 MG PO QAM Carbamazepine (Tegretol), 200 MG PO QPM Clonazepam (Klonopin), 0.5 MG PO BID Duloxetine Hcl (Cymbalta), 60 MG PO QPM Hydromorphone Hcl (Dilaudid), 4 MG PO TID Levothyroxine Sodium (Levothyroxine Sodium), 280 MCG PO 5XWK Levothyroxine Sodium (Levothyroxine Sodium), 224 MCG PO 2XWK Lurasidone Hcl (Latuda), 20 MG PO HS Mupirocin Calcium (Bactroban Nasal), 1 APPLN TOP TID Polyethylene Glycol 3350 (Miralax), 1 TBS PO BID Topiramate (Topamax), 200 MG PO HS Scheduled PRN Albuterol Sulfate (Proair Respiclick), 2 PUFFS PO Q4 PRN for Wheezing Lorazepam (Lorazepam), 0.5 MG PO BID PRN for Anxiety Ondansetron Hcl (Zofran), 8 MG PO BID PRN for Nausea Promethazine (Phenergan Suppository), 25 MG WY q4-6hrs PRN for Nausea Sumatriptan Succinate (Imitrex Statdose), 0.5 ML INJ 1 time only PRN for Migraine Allergies Coded Allergies: NSAIDs (Verified Allergy, Mild, `, 04/28/17) Acetaminophen (Verified Allergy, Unknown, VOMITING, RASH, 04/28/17) Nabumetone (Verified Allergy, Unknown, swelling, 04/28/17) Physical Exam Vital Signs Date Time Temp Pulse Resp B/P (MAP) Pulse Ox O2 Delivery O2 Flow Rate FiO2 04/29/17 01:02 77 18 121/86 98 04/28/17 23:52 96 Room Air 04/28/17 23:29 92 18 95 04/28/17 23:18 133/79 04/28/17 22:59 109 16 04/28/17 22:56 103 04/28/17 22:35 37.0 105 18 155/102 99 Room Air Physical Exam GENERAL: Patient is severely appearing and in minimal distress. Crying on exam. HEENT: No acute trauma, normocephalic atraumatic, mucous membranes moist, no nasal congestion, no scleral icterus. NECK: No stridor, no adenopathy, no meningismus, trachea is midline. LUNGS: No dyspnea. Clear to auscultation and equal bilaterally. No wheeze, no rhonchi. HEART: Mildly tachycardic rate with a normal rhythm. No murmurs, rubs, gallops appreciated. ABDOMEN: Soft, nontender, bowel sounds positive, no masses appreciated, no peritonitis. BACK: No midline tenderness, no CVA tenderness EXTREMITIES: Normal motion all extremities, no cyanosis, no edema. NEUROLOGIC: Alert and oriented, no acute motor or sensory deficits, no focal weakness, cranial nerves grossly intact. SKIN: No rash, no jaundice, no diaphoresis. PSYCH: Denies suicidal or homicidal ideation. Medical Decision & Procedures ER Provider Diagnostic Interpretation: X ray results are stated below per my interpretation: Chest: 1 view: No infiltrate, no effusion, normal cardiac border. Laboratory Results Test 04/29/17 00:01 Bedside Troponin I < 0.030 ng/ml (0-0.045) Medications Administered Medications (Trade) Dose Ordered Sig/Amy Route Start Time Stop Time Status Last Admin Dose Admin Lorazepam (Ativan Tab) 1 mg NOW STAT SL 04/28/17 23:07 04/28/17 23:09 DC 04/28/17 23:18 1 MG ECG Indication: chest pain Rate (beats per minute): 104 Rhythm: sinus tachycardia Findings: no acute ischemic change, no ectopy Comparison ECG Date: April 01, 2017 Change: no significant change ED Course 2258: The patient was evaluated in room B9. A complete history and physical exam was performed. 2307: Ordered Ativan Tab 1 mg SL. 0034: I spoke with the event marketing representative from [address] [place] [address]. She feels that the patient is safe for discharge. 0045: Reevaluated the patient. She would like to go home. Discussed results and discharge instructions: she verbalized understanding and agreement. The patient is ready for discharge. Medical Decision Differential: Acute anxiety, Cardiac Ischemia (STEMI, NSTEMI, Unstable Angina, etc), Pulmonary Embolism, Pneumonia, MSK, amongst other pathologies entertained. 47 yr old female known to me from last month when arrived for similar complaints. Significant anxiety disorder with recent decrease in ativan and now increasing life stressors. No evidence ACS and with ongoing symptoms and negative trop she has already ruled out. EKG and CXR look ok and similar to previous. Symptoms resovled with discussion and ativan. She was evaluated by [facility] and cooping mechanisms reviewed with patient. No indication of suicidal /homicidal and patient states she feels safe at home. With calming HR down. Vitals stable and I do not feel symptoms compatible with PE/dissection. No infectious findings. Medication Reconcilliation Current Medication List: was personally reviewed by me Blood Pressure Screening Patient's blood pressure: Elevated blood pressure Blood pressure disposition: Elevated BP felt to be situational Impression Primary Impression: Anxiety Additional Impression: Substernal chest pain Scribe Attestation The scribe's documentation has been prepared under my direction and personally reviewed by me in its entirety. I confirm that the note above accurately reflects all work, treatment, procedures, and medical decision making performed by me. Departure Information Dispostion Home / Self-Care Referrals No Doctor, Assigned (PCP) Patient Instructions Anxiety Disorder, [facility] Health Problem Qualifiers
[2017-04-29 01:02] VITALS: BP 121/86; PULSE 77; O2SAT 98
--- NOTE | 2017-04-29 07:36 | DIAGNOSTIC IMAGING REPORT ---
CHEST ONE VIEW PORTABLE HISTORY: Atypical Chest Pain COMPARISON: Chest 04/01/2017. FINDINGS: The lungs are clear. Cardiac silhouette is normal in size. No pleural effusions. No pneumothorax. IMPRESSION: No acute process. Electronically signed by: Stephen Sanchez M.D. 04/29/2017 7:35 AM Dictated Date/Time: 04/29/2017 7:34 AM
== END 2017-04-29 01:03 | disposition home or self-care (01) ==
LOC: C.EDB 22:31
DX: R07.89 Other chest pain (principal); F41.9 Anxiety disorder, unspecified; R00.0 Tachycardia, unspecified; E03.9 Hypothyroidism, unspecified; F32.9 Major depressive disorder, single episode, unspecified; K58.9 Irritable bowel syndrome, unspecified; F17.200 Nicotine dependence, unspecified, uncomplicated; Z90.710 Acquired absence of both cervix and uterus; Z90.721 Acquired absence of ovaries, unilateral; Z90.49 Acquired absence of other specified parts of digestive tract; Z79.82 Long term (current) use of aspirin; Z79.899 Other long term (current) drug therapy; Z88.6 Allergy status to analgesic agent; Z88.8 Allergy status to other drugs, medicaments and biological substances; Z83.3 Family history of diabetes mellitus; Z80.9 Family history of malignant neoplasm, unspecified; Z83.79 Family history of other diseases of the digestive system; Z82.49 Family history of ischemic heart disease and other diseases of the circulatory system; Z84.1 Family history of disorders of kidney and ureter; Z82.0 Family history of epilepsy and other diseases of the nervous system

== ENCOUNTER 2022-11-28 22:11 | Observation (INO) ==
[2022-11-28 23:11] LABS: Basophils # (auto) 0.09 K/uL (0-0.2); Basophils % (auto) 0.7 %; Eosinophils # (auto) 0.07 K/uL (0-0.50); Eosinophils % (auto) 0.6 %; Hemoglobin 14.5 g/dl (12.0-16.0); Immature Granulocytes # (auto) 0.04 K/uL (0.01-0.20); Immature Granulocytes % (auto) 0.3 %; Lymphocytes # (auto) 2.76 K/uL (1.2-3.4); Lymphocytes % (auto) 22.1 %; Mean Corpuscular Hemoglobin 30.5 pg (25.0-34.0); Mean Corpuscular Hgb Conc 34.5 g/dL (32.0-36.0); Mean Corpuscular Volume 88.4 fL (80.0-100.0); Mean Platelet Volume 8.6 fL (9.4-12.4); Monocytes # (auto) 0.64 K/uL (0.11-0.59); Monocytes % (auto) 5.1 %; Neutrophils # (auto) 8.87 K/uL (1.40-6.50); Neutrophils % (auto) 71.2 %; Platelet Count 280 K/uL (130-400); RDW Coefficient of Variation 14.4 % (11.5-14.5); RDW Standard Deviation 46.4 fL (36.4-46.3); Red Blood Count 4.75 M/uL (4.20-5.40); White Blood Count 12.47 K/ul (4.8-10.8)
[2022-11-28 23:25] LABS: Alanine Aminotransferase 15 U/L (7-52); Albumin Globulin Ratio 1.5 (0.9-2); Albumin Level 5.1 gm/dl (3.4-5.0); Alkaline Phosphatase 76 U/L (34-104); Anion Gap 12 (3-11); Aspartate Aminotransferase 16 U/L (13-39); BUN Creatinine Ratio 12.3 (10-20); Bilirubin,Total 0.6 mg/dl (0.2-1.0); Blood Urea Nitrogen 31 mg/dl (6-23); Calcium 9.8 mg/dl (8.6-10.3); Carbon Dioxide 26 mmol/L (21-32); Chloride 99 mmol/L (98-107); Est GFR (African American) 24.6 ml/min; Est GFR (Non-African American) 21.2 ml/min; Globulin 3.5 gm/dl (2.5-4.0); Glucose 187 mg/dl (70-99(Fasting)); Lipase 59 U/L (11-82); Potassium 3.8 mmol/L (3.5-5.1); Sodium 137 mmol/L (136-145); Total Protein 8.6 gm/dl (6.0-8.3)
[2022-11-28] MEDS ORDERED: SODIUM CHLORIDE 0.9% 1000ML 1,000 ML IV ONE (23:33)
[2022-11-28] MEDS ORDERED: MoRPHine SULFATE 4 MG/ML 1 ML CARP\\VIAL IV STA (23:48)
[2022-11-28] MEDS ORDERED: ONDANSETRON INJ 2 MG/ML 2 ML VIAL IV STA (23:48)
--- NOTE | 2022-11-29 00:35 | Emergency Department Note ---
Impression & Plan DIANE (acute kidney injury), Hypothyroidism, Abdominal pain ED Provider Note CHIEF COMPLAINT: abd pain HISTORY OF PRESENT ILLNESS: This 52 yo female patient with a history of chronic flank pain, back pain presents to the emergency department with complaints of persistent right upper quadrant abdominal pain through to the flank. Patient states this has been going on for few weeks but has become acutely worse over the last 2 days. The patient was referred to the emergency department by the PCP over telehealth. Patient has not been taking her thyroid medications recently. She states she had to stop her "pain management" through a neurologist in [place] because it was too much [id number] expense. She has been using ibuprofen heavily and less so Tylenol for her pain. She states in the past Tylenol has irritated her liver. She also states she has a history of small bowel obstruction and ileus. REVIEW OF SYSTEMS: A review of systems was performed with positives and pertinent negatives listed in the history of present illness. 10 systems were reviewed and are otherwise negative. ALLERGIES: see below MEDICATIONS: see below PMH: Status post appendectomy, status postcholecystectomy, status post hysterectomy SOCIAL HISTORY: see below DDx: SBO, ileus, pancreatitis, biliary etiology, kidney stone, dehydration, hypothyroidism, electrolyte abnormality as well as other pathologies. PHYSICAL EXAM: Vital signs reviewed. General: Generally well-appearing 52-year-old female, in some discomfort. HEENT: No scleral icterus, PERRLA, neck supple. Moist mucous membranes Cardiovascular: Regular rate and rhythm, no extra sounds. Pulmonary: Clear to auscultation bilaterally, normal work of breathing. Abdomen: Soft, distended, no tympany to percussion, tender to palpation in the epigastric region, positive bowel sounds. Musculoskeletal: Atraumatic, no peripheral edema. Neurologic: Patient awake alert and oriented x 3, speech is clear Skin: Warm, dry, no rash EMERGENCY DEPARTMENT COURSE/MDM: This patient was evaluated and appeared to be in no distress. IV access was obtained and laboratory work was drawn. The patient was hydrated with normal saline solution given IV morphine and Zofran for her discomfort. Lab work is significant for mild leukocytosis and acute kidney injury with creatinine of 2.53. This is likely secondary to the patient's NSAID use. TSH is noted to be markedly elevated and undetectable free T4. Patient admitted she had not taken her levothyroxine in several months. She was given 200 mcg of levothyroxine in the ED. CT scan of the abdomen pelvis reveals no acute intra-abdominal findings. There is no evidence of obstruction or free air. Patient was d/w the hospitalist service for admission and further management. MONITORING: An order for cardiac monitoring was placed and the patient is noted to be in a normal sinus rhythm at 100 beats per minute. RADIOLOGY: Chest and abdominal x-ray to my interpretation reveals no obstruction or free air. Otherwise defer to radiology. CT scan of the abdomen and pelvis to my review reveals no acute process, otherwise defer to radiology DISPOSITION:Home Past Med/Surg History Medical History Depression Endometriosis Hypothyroidism IBS (irritable bowel syndrome) Migraine Social History Smoking Status: Current every day smoker Cigarettes Per Day: 5; Second Hand Exposure: No; Do You Dip or Chew Tobacco: No; Tobacco Cessation Education Requested by Patient: No Hx Alcohol Use: No Hx Substance Use: No Preferred Language: Maori Communication Ability: Effective [place] Machine Operator Required: No Beliefs That Will Affect Care: None Current Living Situation: Family Other Information That Helps Us Care for You: No Feels Safe at Home: Yes Safety Concerns: Feels Safe At This Time Assistive Devices: None Allergies Allergies Allergy/AdvReac Type Severity Reaction Status Date / Time NSAIDS (Non-Steroidal Allergy Mild ` Verified 11/29/22 11:28 Anti-Inflamma acetaminophen Allergy Unknown VOMITING, Verified 10/10/20 12:37 RASH nabumetone Allergy Unknown swelling Verified 10/10/20 12:37 Home Meds Home Medications Medication Instructions Recorded Confirmed mupirocin 2 % topical ointment 1 applic topical BID 12/21/19 10/10/20 Previous Rx's Medication Instructions Recorded blood sugar diagnostic (OneTouch #100 ea 12/01/22 Verio test strips) dicyclomine 10 mg capsule 10 mg PO TID PRN abdominal pain #9 12/01/22 caps levothyroxine 112 mcg tablet 224 mcg PO DAILY 30 days #60 tabs 12/01/22 magnesium oxide 400 mg PO DAILY #7 tabs 12/01/22 metformin 500 mg tablet,extended 500 mg PO BID #60 tabs 12/01/22 release 24 hr Results & Data (ED) Vital Signs Vital Signs - 24 hr 11/28/22 22:19 Temperature 36.8 C Temperature Source Temporal Artery Scan Pulse Rate 113 H Respiratory Rate 20 Respiratory Effort / Characteristics Non-Labored Spontaneous Respiratory Depth Normal Blood Pressure 143/87 H Blood Pressure Mean 105 Pulse Oximetry 95 Oxygen Delivery Method Room Air Sepsis Recent Fever Within 48 Hours No Sepsis New/Unexplained Change in Mental Status N/A Sepsis Action Taken by Nursing No Action Required Home Medications Current Medication List: was personally reviewed by me Laboratory Data Attestation: I reviewed the patient's lab results. 11/28/22 22:50 11/28/22 22:50 Lab Results 11/28/22 11/28/22 11/28/22 Range/Units 22:43 22:43 22:50 WBC Cancelled RBC Cancelled Hgb Cancelled Hct Cancelled MCV Cancelled MCH Cancelled MCHC Cancelled RDW Std Deviation Cancelled RDW Coeff of Adolfo Cancelled Plt Count Cancelled MPV Cancelled Immature Gran % (Auto) Cancelled Neut % (Auto) Cancelled Lymph % (Auto) Cancelled Dixon % (Auto) Cancelled Eos % (Auto) Cancelled Baso % (Auto) Cancelled Neut # (Auto) Cancelled Lymph # (Auto) Cancelled Dixon # (Auto) Cancelled Eos # (Auto) Cancelled Baso # (Auto) Cancelled Immature Gran # (Auto) Cancelled Absolute Nucleated RBC Cancelled Nucleated RBC % (auto) Cancelled Neutrophils % (Manual) Cancelled Band Neutrophils % Cancelled Lymphocytes % (Manual) Cancelled Prolymphocyte % Cancelled Reactive Lymphs % (Man) Cancelled Monocytes % (Manual) Cancelled Eosinophils % (Manual) Cancelled Basophils % (Manual) Cancelled Metamyelocytes % (Man) Cancelled Myelocytes % (Man) Cancelled Promyelocytes % (Man) Cancelled Blast Cells % (Manual) Cancelled Plasma Cell % (Manual) Cancelled Other Cells % Cancelled Nucleated RBC % Cancelled Neutrophils # (Manual) Cancelled Band Neutrophils # Cancelled Total Absolute Neuts Cancelled Lymphocytes # (Manual) Cancelled Prolymphocyte # Cancelled Reactive Lymphs # Cancelled Total Abs Lymphocytes Cancelled Monocytes # (Manual) Cancelled Eosinophils # (Manual) Cancelled Basophils # (Manual) Cancelled Metamyelocytes # (Man) Cancelled Myelocytes # (Manual) Cancelled Promyelocytes # (Man) Cancelled Blast Cells # (Man) Cancelled Plasma Cell # (Manual) Cancelled Other Cells # Cancelled Nucleated RBCs # (Man) Cancelled Hypersegmented Neuts Cancelled Hyposegmented Neuts Cancelled Hypogranular Neuts Cancelled Large Granular Lymphs Cancelled # Lrg Granular Lymphs Cancelled Hairy Cells Cancelled Smudge Cells Cancelled Toxic Granulation Cancelled Toxic Vacuolation Cancelled Dohle Bodies Cancelled Sherman Rods Cancelled Platelet Estimate Cancelled Hypogranular Platelets Cancelled Giant Platelets Cancelled Platelet Satelliting Cancelled RBC Morphology Cancelled Polychromasia Cancelled Hypochromasia Cancelled Poikilocytosis Cancelled Basophilic Stippling Cancelled Anisocytosis Cancelled Microcytosis Cancelled Macrocytosis Cancelled Spherocytes Cancelled Pappenheimer Bodies Cancelled Sickle Cells Cancelled Target Cells Cancelled Tear Drop Cells Cancelled Ovalocytes Cancelled Stomatocytes Cancelled [place] Bodies Cancelled Echinocytes Cancelled Acanthocytes (Spur) Cancelled Rouleaux Cancelled RBC Agglutinates Cancelled Schistocytes Cancelled Sezary Cell Cancelled Sodium Cancelled 137 Potassium Cancelled 3.8 Chloride Cancelled 99 Carbon Dioxide Cancelled 26 Anion Gap Cancelled 12 H BUN Cancelled 31 H Creatinine Cancelled 2.53 H Est Cr Clr Drug Dosing Cancelled Not Reportable Est GFR ( Amer) Cancelled 24.6 Est GFR (Non-Af Amer) Cancelled 21.2 BUN/Creatinine Ratio Cancelled 12.3 Glucose Cancelled 187 H Calcium Cancelled 9.8 Total Bilirubin Cancelled 0.6 AST Cancelled 16 ALT Cancelled 15 Alkaline Phosphatase Cancelled 76 Total Protein Cancelled 8.6 H Albumin Cancelled 5.1 H Globulin Cancelled 3.5 Albumin/Globulin Ratio Cancelled 1.5 Lipase Cancelled 59 TSH (0.300-4.500) uIu/ml Free T4 (0.61-1.60) ng/dl Urine Color Urine Appearance (Clear) Urine pH (4.5-7.5) Ur Specific [place] (1.000-1.030) Urine Protein (Negative) Urine Glucose (UA) (Negative) Urine Ketones (Negative) Urine Blood (Negative) Urine Nitrite (Negative) Urine Bilirubin (Negative) Urine Urobilinogen (Negative) Ur Leukocyte Esterase (Negative) Urine WBC (Auto) (0-5) /hpf Urine RBC (Auto) (0-4) /hpf U Hyaline Cast (Auto) (0-5) /lpf U Epithel Cells (Auto) (0-5) /lpf Urine Bacteria (Auto) (Negative) Ur Renal Epithelial Cell Urine Yeast SARS-CoV-2, RNA, NAAT (NEGATIVE) Blood Parasites ID Cancelled 11/28/22 11/28/22 11/29/22 Range/Units 22:50 22:50 00:39 WBC 12.47 H RBC 4.75 Hgb 14.5 Hct 42.0 MCV 88.4 MCH 30.5 MCHC 34.5 RDW Std Deviation 46.4 H RDW Coeff of Adolfo 14.4 Plt Count 280 MPV 8.6 L Immature Gran % (Auto) 0.3 Neut % (Auto) 71.2 Lymph % (Auto) 22.1 Dixon % (Auto) 5.1 Eos % (Auto) 0.6 Baso % (Auto) 0.7 Neut # (Auto) 8.87 H Lymph # (Auto) 2.76 Dixon # (Auto) 0.64 H Eos # (Auto) 0.07 Baso # (Auto) 0.09 Immature Gran # (Auto) 0.04 Absolute Nucleated RBC Nucleated RBC % (auto) Neutrophils % (Manual) Band Neutrophils % Lymphocytes % (Manual) Prolymphocyte % Reactive Lymphs % (Man) Monocytes % (Manual) Eosinophils % (Manual) Basophils % (Manual) Metamyelocytes % (Man) Myelocytes % (Man) Promyelocytes % (Man) Blast Cells % (Manual) Plasma Cell % (Manual) Other Cells % Nucleated RBC % Neutrophils # (Manual) Band Neutrophils # Total Absolute Neuts Lymphocytes # (Manual) Prolymphocyte # Reactive Lymphs # Total Abs Lymphocytes Monocytes # (Manual) Eosinophils # (Manual) Basophils # (Manual) Metamyelocytes # (Man) Myelocytes # (Manual) Promyelocytes # (Man) Blast Cells # (Man) Plasma Cell # (Manual) Other Cells # Nucleated RBCs # (Man) Hypersegmented Neuts Hyposegmented Neuts Hypogranular Neuts Large Granular Lymphs # Lrg Granular Lymphs Hairy Cells Smudge Cells Toxic Granulation Toxic Vacuolation Dohle Bodies [place] Rods Platelet Estimate Hypogranular Platelets Giant Platelets Platelet Satelliting RBC Morphology Polychromasia Hypochromasia Poikilocytosis Basophilic Stippling Anisocytosis Microcytosis Macrocytosis Spherocytes Pappenheimer Bodies Sickle Cells Target Cells Tear Drop Cells Ovalocytes Stomatocytes [place] Bodies Echinocytes Acanthocytes (Spur) Rouleaux RBC Agglutinates Schistocytes Sezary Cell Sodium Potassium Chloride Carbon Dioxide Anion Gap BUN Creatinine Est Cr Clr Drug Dosing Est GFR ( Amer) Est GFR (Non-Af Amer) BUN/Creatinine Ratio Glucose Calcium Total Bilirubin AST ALT Alkaline Phosphatase Total Protein Albumin Globulin Albumin/Globulin Ratio Lipase TSH 245.168 H (0.300-4.500) uIu/ml Free T4 < 0.25 L (0.61-1.60) ng/dl Urine Color Dark Yellow Urine Appearance Cloudy A (Clear) Urine pH 5.0 (4.5-7.5) Ur Specific [place] 1.030 (1.000-1.030) Urine Protein 1+ H (Negative) Urine Glucose (UA) Negative (Negative) Urine Ketones Trace H (Negative) Urine Blood 2+ H (Negative) Urine Nitrite Negative (Negative) Urine Bilirubin 1+ H (Negative) Urine Urobilinogen Negative (Negative) Ur Leukocyte Esterase Negative (Negative) Urine WBC (Auto) 5-10 H (0-5) /hpf Urine RBC (Auto) 0-4 (0-4) /hpf U Hyaline Cast (Auto) >30 H (0-5) /lpf U Epithel Cells (Auto) >30 H (0-5) /lpf Urine Bacteria (Auto) Negative (Negative) Ur Renal Epithelial Cell Not Reportable Urine Yeast Not Reportable SARS-CoV-2, RNA, NAAT (NEGATIVE) Blood Parasites ID 11/29/22 Range/Units 04:31 WBC RBC Hgb Hct MCV MCH MCHC RDW Std Deviation RDW Coeff of Adolfo Plt Count MPV Immature Gran % (Auto) Neut % (Auto) Lymph % (Auto) Dixon % (Auto) Eos % (Auto) Baso % (Auto) Neut # (Auto) Lymph # (Auto) Dixon # (Auto) Eos # (Auto) Baso # (Auto) Immature Gran # (Auto) Absolute Nucleated RBC Nucleated RBC % (auto) Neutrophils % (Manual) Band Neutrophils % Lymphocytes % (Manual) Prolymphocyte % Reactive Lymphs % (Man) Monocytes % (Manual) Eosinophils % (Manual) Basophils % (Manual) Metamyelocytes % (Man) Myelocytes % (Man) Promyelocytes % (Man) Blast Cells % (Manual) Plasma Cell % (Manual) Other Cells % Nucleated RBC % Neutrophils # (Manual) Band Neutrophils # Total Absolute Neuts Lymphocytes # (Manual) Prolymphocyte # Reactive Lymphs # Total Abs Lymphocytes Monocytes # (Manual) Eosinophils # (Manual) Basophils # (Manual) Metamyelocytes # (Man) Myelocytes # (Manual) Promyelocytes # (Man) Blast Cells # (Man) Plasma Cell # (Manual) Other Cells # Nucleated RBCs # (Man) Hypersegmented Neuts Hyposegmented Neuts Hypogranular Neuts Large Granular Lymphs # Lrg Granular Lymphs Hairy Cells Smudge Cells Toxic Granulation Toxic Vacuolation Dohle Bodies [place] Rods Platelet Estimate Hypogranular Platelets Giant Platelets Platelet Satelliting RBC Morphology Polychromasia Hypochromasia Poikilocytosis Basophilic Stippling Anisocytosis Microcytosis Macrocytosis Spherocytes Pappenheimer Bodies Sickle Cells Target Cells Tear Drop Cells Ovalocytes Stomatocytes [place] Bodies Echinocytes Acanthocytes (Spur) Rouleaux RBC Agglutinates Schistocytes Sezary Cell Sodium Potassium Chloride Carbon Dioxide Anion Gap BUN Creatinine Est Cr Clr Drug Dosing Est GFR ( Amer) Est GFR (Non-Af Amer) BUN/Creatinine Ratio Glucose Calcium Total Bilirubin AST ALT Alkaline Phosphatase Total Protein Albumin Globulin Albumin/Globulin Ratio Lipase TSH (0.300-4.500) uIu/ml Free T4 (0.61-1.60) ng/dl Urine Color Urine Appearance (Clear) Urine pH (4.5-7.5) Ur Specific [place] (1.000-1.030) Urine Protein (Negative) Urine Glucose (UA) (Negative) Urine Ketones (Negative) Urine Blood (Negative) Urine Nitrite (Negative) Urine Bilirubin (Negative) Urine Urobilinogen (Negative) Ur Leukocyte Esterase (Negative) Urine WBC (Auto) (0-5) /hpf Urine RBC (Auto) (0-4) /hpf U Hyaline Cast (Auto) (0-5) /lpf U Epithel Cells (Auto) (0-5) /lpf Urine Bacteria (Auto) (Negative) Ur Renal Epithelial Cell Urine Yeast SARS-CoV-2, RNA, NAAT NEGATIVE (NEGATIVE) Blood Parasites ID Administered Medications Discontinued Medications Ciprofloxacin/Dexamethasone (Cipro 0.3%/Dexamethasone 0.1% Otic Susp 7.5ml) 4 d rops OTL BID ANTHONY Stop: 12/29/22 08:59 Last Admin: 12/01/22 08:30 Dose: 4 drops Documented By: Admin: 11/30/22 20:25 Dose: 4 drops Documented By: Admin: 11/30/22 08:55 Dose: 4 drops Documented By: Admin: 11/29/22 20:32 Dose: 4 drops Documented By: Admin: 11/29/22 08:57 Dose: 4 drops Documented By: ROBERT Dicyclomine HCl (Dicyclomine Hcl 10 Mg Cap) 10 mg PO TID PRN PRN Reason: abdominal cramps Stop: 12/29/22 11:59 Last Admin: 11/30/22 11:41 Dose: 10 mg Documented By: Admin: 11/29/22 17:55 Dose: 10 mg Documented By: LEX Dicyclomine HCl (Dicyclomine Hcl 10 Mg Cap) 10 mg PO NOW STA Stop: 11/29/22 07:40 Last Admin: 11/29/22 08:42 Dose: 10 mg Documented By: ROBERT Diphenhydramine HCl (Diphenhydramine 50 Mg/Ml Vial) 50 mg IV NOW STA Stop: 11/29/22 03:02 Last Admin: 11/29/22 03:07 Dose: 50 mg Documented By: DILAN Enoxaparin Sodium (Enoxaparin Inj 30 Mg/0.3 Ml Syr) 30 mg SQ QAM ANTHONY Stop: 12/29/22 07:38 Last Admin: 12/01/22 08:31 Dose: 30 mg Documented By: Admin: 11/30/22 08:55 Dose: 30 mg Documented By: Admin: 11/29/22 08:42 Dose: 30 mg Documented By: ROBERT Sodium Chloride (Nss 1000ml) 1,000 mls @ 999 mls/hr IV .Q1H1M ONE Stop: 11/29/22 00:33 Last Infusion: 11/29/22 07:47 Dose: 0 mls/hr Documented By: Admin: 11/28/22 23:59 Dose: 999 mls/hr Documented By: DILAN Sodium Chloride (Nss 1000ml) 1,000 mls @ 150 mls/hr IV .Q6H40M [facility] Stop: 12/28/22 23:44 Last Admin: 11/29/22 07:47 Dose: Not Given Documented By: Admin: 11/29/22 07:47 Dose: Not Given Documented By: ES Sodium Chloride (Nss 1000ml) 1,000 mls @ 80 mls/hr IV .[id number] ANTHONY Stop: 12/29/22 07:38 Last Admin: 12/01/22 05:17 Dose: 80 mls/hr Documented By: RMAubrey Infusion: 12/01/22 05:17 Dose: 0 mls/hr Documented By: Admin: 11/30/22 16:43 Dose: 80 mls/hr Documented By: Infusion: 11/30/22 16:43 Dose: 80 mls/hr Documented By: Infusion: 11/30/22 14:47 Dose: 80 mls/hr Documented By: Admin: 11/30/22 08:54 Dose: 125 mls/hr Documented By: Infusion: 11/30/22 07:58 Dose: 125 mls/hr Documented By: Admin: 11/29/22 23:58 Dose: 125 mls/hr Documented By: [facility] Infusion: 11/29/22 23:58 Dose: 0 mls/hr Documented By: [facility] Admin: 11/29/22 15:53 Dose: 125 mls/hr Documented By: Infusion: 11/29/22 15:53 Dose: 125 mls/hr Documented By: Admin: 11/29/22 08:44 Dose: 125 mls/hr Documented By: ES Magnesium Sulfate/Dextrose (Magnesium Sulfate / D5w) 1 gm in 100 mls @ 50 mls/hr IV Q2H ANTHONY Stop: 11/29/22 19:29 Last Infusion: 11/29/22 20:02 Dose: 0 mls/hr Documented By: [facility] Admin: 11/29/22 17:47 Dose: 50 mls/hr Documented By: Infusion: 11/29/22 17:47 Dose: 50 mls/hr Documented By: Admin: 11/29/22 15:53 Dose: 50 mls/hr Documented By: Magnesium Sulfate/Dextrose (Magnesium Sulfate / D5w) 1 gm in 100 mls @ 50 mls/hr IV Q2H ANTHONY Stop: 12/01/22 13:59 Last Infusion: 12/01/22 14:48 Dose: 0 mls/hr Documented By: Admin: 12/01/22 12:21 Dose: 50 mls/hr Documented By: Infusion: 12/01/22 12:21 Dose: 50 mls/hr Documented By: Admin: 12/01/22 10:29 Dose: 50 mls/hr Documented By: NAVEEN Insulin Aspart (Insulin Aspart Per Unit Charge) 0 units SC ACHS ANTHONY Stop: 12/29/22 07:38 Last Admin: 12/01/22 12:12 Dose: Not Given Documented By: NAVEEN Co-signed By: MARICARMEN Admin: 12/01/22 08:29 Dose: 1 units Documented By: NAVEEN Co-signed By: SOPHIA Admin: 11/30/22 20:37 Dose: 1 units Documented By: MARCEL Co-signed By: UNRULY Admin: 11/30/22 16:37 Dose: Not Given Documented By: Admin: 11/30/22 11:58 Dose: 2 units Documented By: LEX Co-signed By: MARICARMEN Admin: 11/30/22 07:41 Dose: Not Given Documented By: Admin: 11/29/22 21:45 Dose: 2 units Documented By: LUTHER Co-signed By: UNRULY Admin: 11/29/22 17:03 Dose: Not Given Documented By: Admin: 11/29/22 10:44 Dose: Not Given Documented By: Admin: 11/29/22 08:04 Dose: Not Given Documented By: ROBERT Levothyroxine Sodium (Levothyroxine Sodium 200 Mcg Tablet) 200 mcg PO NOW STA Stop: 11/29/22 02:32 Last Admin: 11/29/22 02:58 Dose: 200 mcg Documented By: DILAN Levothyroxine Sodium (Levothyroxine Sodium 25 Mcg Tablet) 25 mcg PO NOW STA Stop: 11/29/22 02:32 Last Admin: 11/29/22 02:58 Dose: 25 mcg Documented By: DILAN Levothyroxine Sodium (Levothyroxine Sodium 75 Mcg Tablet) 225 mcg PO DAILYBB ANTHONY Stop: 12/29/22 07:59 Last Admin: 12/01/22 06:25 Dose: 225 mcg Documented By: Admin: 11/30/22 05:37 Dose: 225 mcg Documented By: Admin: 11/29/22 08:42 Dose: 225 mcg Documented By: ROBERT Morphine Sulfate (Morphine Sulfate 4 Mg/Ml 1 Ml Carp\\Vial) 4 mg IV NOW STA Stop: 11/28/22 23:49 Last Admin: 11/28/22 23:59 Dose: 4 mg Documented By: DILAN Ondansetron HCl (Ondansetron Inj 2 Mg/Ml 2 Ml Vial) 4 mg IV NOW STA Stop: 11/28/22 23:49 Last Admin: 11/28/22 23:59 Dose: 4 mg Documented By: DILAN Ondansetron HCl (Ondansetron Inj 2 Mg/Ml 2 Ml Vial) 4 mg IV Q6H PRN PRN Reason: Nausea Stop: 12/29/22 07:38 Last Admin: 11/29/22 19:50 Dose: 4 mg Documented By: LUTHER Potassium Phosphate (Pot Phosphate Monobasic W/ Sod Tab) 2 tab PO ONCE ONE Stop: 12/01/22 09:49 Last Admin: 12/01/22 10:28 Dose: 2 tab Documented By: NAVEEN Tramadol HCl (Tramadol Hcl 50 Mg Tablet) 50 mg PO Q6H PRN PRN Reason: Pain Stop: 12/29/22 08:23 Last Admin: 11/30/22 05:40 Dose: 50 mg Documented By: Admin: 11/29/22 15:49 Dose: 50 mg Documented By: LEX Discharge Plan Visit Data Chief Complaint: Abdominal Pain Stated Complaint: STOMACH PAIN, THROWING UP ED Provider: Charu Hodge Discharge Problem: DIANE (acute kidney injury), Hypothyroidism, Abdominal pain Patient Disposition: Admitted As Inpatient Discharge Instructions Interventions: ED Discharge Assessment Last Done: 11/29/22 07:39
[2022-11-29 00:54] LABS: Appearance Urine Cloudy (Clear); Bacteria Urine Automated Negative (Negative); Blood Urine 2+ (Negative); Color Urine Dark Yellow; Epithelial Cell Urine Auto >30 /lpf (0-5); Glucose Urine UA Negative (Negative); Ketones Urine Trace (Negative); Leukocyte Esterase Urine Negative (Negative); Nitrite Urine Negative (Negative); Protein Urine 1+ (Negative); Urobilinogen Urine Negative (Negative)
[2022-11-29 01:13] LABS: Bilirubin Urine 1+ (Negative)
[2022-11-29 01:25] LABS: Cast Urine Automated >30 /lpf (0-5); RBC Urine Automated 0-4 /hpf (0-4)
[2022-11-29 01:30] LABS: Thyroid Stimulating Hormone 245.168 uIu/ml (0.300-4.500)
--- NOTE | 2022-11-29 01:55 | CT Scan Report ---
Exam(s): CT ABDOMEN + PELVIS Without Contrast EXAM: CT Abdomen and Pelvis Without Intravenous Contrast CLINICAL HISTORY: Reason for exam: abd pain, vomiting, DIANE. TECHNIQUE: Axial computed tomography images of the abdomen and pelvis without intravenous contrast. Automated exposure control was utilized for the study. A dose lowering technique was utilized adhering to the principles of ALARA. COMPARISON: Dated 12/15/15 FINDINGS: Lung bases: Unremarkable. No mass. No consolidation. ABDOMEN: Liver: Diffuse low density throughout the liver compatible with hepatic steatosis. Gallbladder and bile ducts: Status post cholecystectomy. No ductal dilation. Pancreas: Unremarkable. No ductal dilation. Spleen: Unremarkable. No splenomegaly. Adrenals: Unremarkable. No mass. Kidneys and ureters: Unremarkable. No obstructing stones. No hydronephrosis. Stomach and bowel: Unremarkable. No obstruction. No mucosal thickening. PELVIS: Appendix: No findings to suggest acute appendicitis. Bladder: Unremarkable. No stones. Reproductive: Status post hysterectomy. ABDOMEN and PELVIS: Intraperitoneal space: Unremarkable. No free air. No significant fluid collection. Bones/joints: Degenerative changes of the thoracolumbar spine. No acute fracture. No dislocation. Soft tissues: Unremarkable. Vasculature: There is diffuse atherosclerotic calcification of the aorta and its major branch vessels. No abdominal aortic aneurysm. Lymph nodes: Unremarkable. No enlarged lymph nodes. IMPRESSION: No acute pathology in the abdomen or pelvis. Diffuse hepatic steatosis. Electronically signed by: Parvene Ervin MD 11/29/22 01:53 AM
[2022-11-29 02:24] LABS: T4 Free Thyroxine < 0.25 ng/dl (0.61-1.60)
[2022-11-29] MEDS ORDERED: LEVOTHYROXINE SODIUM 200 MCG TABLET PO STA (02:31)
[2022-11-29] MEDS ORDERED: LEVOTHYROXINE SODIUM 25 MCG TABLET PO STA (02:31)
[2022-11-29] MEDS ORDERED: diphenhydrAMINE 50 MG/ML VIAL IV STA (03:01)
--- NOTE | 2022-11-29 06:57 | XRay Report ---
PA CHEST WITH ABDOMINAL SERIES CLINICAL HISTORY: Generalized abdominal pain. Cramping. FINDINGS: A PA chest radiograph is compared to study dated 10/10/2020. The cardiomediastinal silhouette is unrem arkable. There are tiny calcified granulomas. The lungs and pleural spaces are otherwise clear. No pn eumothorax is seen. The skeletal structures appear osteopenic. The bony thorax is grossly intact. Supine and erect abdominal radiographs are correlated with abdominal CT dated 12/15/2015. Cholecystect nando clips are noted in the right upper quadrant. Suture material projects over the right mid abdomen. There is a nonobstructed abdominal bowel gas pattern. No evidence of intraperitoneal free air is see n. There are no abnormal abdominal calcifications. A phlebolith is seen in the left pelvis. The lumbo sacral spine and bony pelvis appear intact. There is mild lumbosacral spondylosis. IMPRESSION: 1. No active disease in the chest. 2. Nonobstructed abdominal bowel gas pattern. ACT 112: Negative or not required by law. Electronically signed by: Camron Bazzi M.D. 11/29/2022 6:55 AM
[2022-11-29] MEDS ORDERED: GLUCAGON FOR INJ 1 MG VIAL SQ PRN (07:39)
[2022-11-29] MEDS ORDERED: NITROGLYCERIN SL 0.4 MG/TAB TAB SL PRN (07:39)
[2022-11-29] MEDS ORDERED: ACETAMINOPHEN 1,000 MG/100 ML VIAL IV PRN (07:39)
[2022-11-29] MEDS ORDERED: DICYCLOMINE HCL 10 MG CAP PO STA (07:39)
[2022-11-29] MEDS ORDERED: ONDANSETRON INJ 2 MG/ML 2 ML VIAL IV PRN (07:39)
[2022-11-29] MEDS ORDERED: GLUCOSE 40% GEL 15 GM TUBE PO PRN (07:39)
[2022-11-29] MEDS ORDERED: DEXTROSE 50% 50 ML SYRINGE IV PRN (07:39)
[2022-11-29] MEDS ORDERED: CARBOHYDRATES FOR HYPOGLYCEMIA PO PRN (07:39)
[2022-11-29] MEDS ORDERED: GLUCOSE 10 TAB/TUBE PO PRN (07:39)
[2022-11-29] MEDS: SODIUM CHLORIDE 0.9% 1000ML 1,000 ML IV SCH ×4 (07:47→23:58)
[2022-11-29] MEDS: INSULIN ASPART PER UNIT CHARGE SC SCH ×4 (08:04→21:45)
[2022-11-29] MEDS ORDERED: ACETAMINOPHEN 325 MG TAB PO PRN (08:20)
[2022-11-29] MEDS: LEVOTHYROXINE SODIUM 75 MCG TABLET PO SCH (08:42)
[2022-11-29] MEDS: ENOXAPARIN INJ 30 MG/0.3 ML SYR SQ SCH (08:42)
[2022-11-29 08:51] LABS: Basophils # (auto) 0.05 K/uL (0-0.2); Basophils % (auto) 0.6 %; Eosinophils # (auto) 0.15 K/uL (0-0.50); Eosinophils % (auto) 1.9 %; Hematocrit (blood only) 36.5 % (37.0-47.0); Immature Granulocytes # (auto) 0.02 K/uL (0.01-0.20); Immature Granulocytes % (auto) 0.3 %; Lymphocytes # (auto) 2.41 K/uL (1.2-3.4); Lymphocytes % (auto) 30.6 %; Mean Corpuscular Hemoglobin 29.6 pg (25.0-34.0); Mean Corpuscular Hgb Conc 32.9 g/dL (32.0-36.0); Mean Corpuscular Volume 90.1 fL (80.0-100.0); Mean Platelet Volume 8.6 fL (9.4-12.4); Monocytes # (auto) 0.55 K/uL (0.11-0.59); Neutrophils # (auto) 4.69 K/uL (1.40-6.50); Neutrophils % (auto) 59.6 %; Platelet Count 206 K/uL (130-400); RDW Coefficient of Variation 14.5 % (11.5-14.5); RDW Standard Deviation 47.8 fL (36.4-46.3); Red Blood Count 4.05 M/uL (4.20-5.40); White Blood Count 7.87 K/ul (4.8-10.8)
[2022-11-29] MEDS: CIPRO 0.3%/DEXAMETHASONE 0.1% OTIC SUSP 7.5ML OTL SCH ×2 (08:57→20:32)
[2022-11-29 09:07] LABS: BUN Creatinine Ratio 16.8 (10-20); Calcium 8.3 mg/dl (8.6-10.3); Creatinine Clr Calc Pharmacy 43.3 ml/min; Est GFR (African American) 40.6 ml/min; Est GFR (Non-African American) 35.1 ml/min; Magnesium 1.3 mg/dl (1.7-2.4); Potassium 3.3 mmol/L (3.5-5.1)
--- NOTE | 2022-11-29 09:25 | History and Physical Report ---
DATE OF ADMISSION: 11/29/2022. CHIEF COMPLAINT: Severe abdominal pain. HISTORY OF PRESENT ILLNESS: A 52-year-old female with past medical history significant for type 2 diabetes, but the patient states she is not taking medication for the last 2 years and no recent HbA1c level, history of hypothyroidism, she stopped taking medication for thyroidism for some time now, chronic rhinitis, irritable bowel syndrome, history of tobacco use disorder, chronic narcotic use. The patient used to get pain medication from pain doctor, but she is no longer going there because of the cost, and not on pain medications for some time now,.She was us\saurabh iopr-iht-adtyely pain medication for abdominal pain. The patient also has a band in lower extremity. When asked about it, she says she is on probation since 2020 because of using the old prescription for Suboxone. The patient complains of nausea. She was constipated, but had several bowel movements today. Denies any chest pain, no shortness of breath, no cough, no fevers. Has some headache. Has some left earache. No runny nose, no sore throat. No blurred visions. Hemodynamically stable. ALLERGIES: TO NSAID, TYLENOL, NABUMETONE. PAST MEDICAL HISTORY: As mentioned above. PAST SURGICAL HISTORY: Dental surgery, hemorrhoidectomy, laparoscopic excision of the lesions for endometriosis, laparoscopic fulguration of oviducts, laparoscopic surgical lysis of adhesions, laparoscopic oophorectomy and salpingectomy, removal of foreign body, appendectomy, total abdominal hysterectomy with removal of tubes, cholecystectomy laparoscopic. MEDICATIONS: The patient supposed to be on metformin, levothyroxine, but not taking any medications. SOCIAL HISTORY: , currently lives with her 80 year-old father and 27-year-old brother. smokes half pack a day. Alcohol rarely No drug use. REVIEW OF SYSTEMS: As per HPI. Rest of review of systems is negative. PHYSICAL EXAMINATION: GENERAL: The patient is obese, not in acute distress. VITAL SIGNS: Temperature 36.8, pulse 92, respiratory rate 16, blood pressure 139/95, oxygen 96% on room air. HEENT: Pupils equal, round and reactive to light. Oral mucosa, poor dentition.Left ear erythema seen close to ear drum NECK: No JVD. No neck masses. CARDIOVASCULAR: S1 and S2 heard. Regular rate and rhythm. No murmur, no gallop. RESPIRATORY SYSTEM: Normal AP diameter. No accessory muscle use. No wheezing, no crackles. ABDOMEN: Soft, bowel sounds present. Mild discomfort. Mild guarding, no rigidity, no distension. CENTRAL NERVOUS SYSTEM: Cranial nerves II through XII are grossly intact, nonfocal. EXTREMITIES: No edema, no erythema. LABORATORY DATA: WBC 12.4, hemoglobin 14.5, hematocrit 42, platelets 280. Sodium 137, potassium 3.8, chloride 99, bicarb 26, BUN 31, creatinine 2.5, serum glucose 187, calcium 9.8, total bilirubin 0.6, AST 16, ALT 15, alkaline phosphatase 76, lipase 59. TSH is 245. Free T4 less than 0.25. Urinalysis +2 blood. SARS-CoV-2 rapid test negative. IMAGING DATA: CT of the abdomen and pelvis shows no acute pathology in the abdomen or pelvis. Diffuse hepatic steatosis. ASSESSMENT AND PLAN: This is a 52-year-old female who presents with abdominal pain. 1. Abdominal pain. CT scan was okay. History of irritable bowel syndrome. We will keep her on Bentyl p.r.n., Tramadol l p.r.n. The patient is on probation for using old prescription of Suboxone as per the patient. We will try to avoid narcotics. Monitor in the hospital.GI consult 2. Hypothyroidism: Not taking thyroid medications for some time. TSH is very high and free T4 is less than 0.25. The patient was supposed to be on levothyroxine 225 mcg daily, which was given orally while in the ER. We will continue with oral dosing. May need to discuss with Endocrinology for followup and also for any requirement of IV Synthroid while in the hospital. 3. Diabetes: Not taking medication for the last [address] on insulin sliding scale.HBA1C level 4.Left ear external otitis media place on ear drops. 4. Deep venous thrombosis prophylaxis: Lovenox. DISPOSITION: Closely monitor in the med tele. PT/OT prior to discharge. Social service to help with discharge planning. Job ID: [id number] [facility]
[2022-11-29 10:35] LABS: Estimated Average Glucose 180 mg/dl; Hemoglobin A1C 7.9 % (4.5-5.6)
[2022-11-29] MEDS: traMADol HCL 50 MG TABLET PO PRN (15:49)
[2022-11-29] MEDS: MAGNESIUM SULFATE / D5W 1 GM/100 ML BAG IV SCH ×2 (15:53→17:47)
--- NOTE | 2022-11-29 16:08 | Communication Note ---
Date of Service: November 29, 2022 Patient seen and examined Reports abd pain described as crampy like "charley horse" has improved a bit, now exacerbated with movement. No diarrhea so far today. No vomiting. Exam notable for lower abd tenderness. Labs notable for TSH 245, Cr 2.[address] ab/p: No acute pathology. Diffuse hepatic steatosis Continue bentyl prn Continue IVF Replete hypomagnesemia Educated on need for med adherence Continue levothyroxine. Will need scripts on dc HbA1c 7.9. Provided DM education. Needs weight loss, diet, possible metformin on dc Other plans as detailed in H&P
[2022-11-29] MEDS: DICYCLOMINE HCL 10 MG CAP PO PRN (17:55)
[2022-11-30] MEDS: LEVOTHYROXINE SODIUM 75 MCG TABLET PO SCH (05:37)
[2022-11-30] MEDS: traMADol HCL 50 MG TABLET PO PRN (05:40)
[2022-11-30 06:55] LABS: Calcium 7.5 mg/dl (8.6-10.3); Magnesium 1.8 mg/dl (1.7-2.4); Potassium 3.6 mmol/L (3.5-5.1)
[2022-11-30 07:00] LABS: BUN Creatinine Ratio 14.2 (10-20); Creatinine Clr Calc Pharmacy 62.7 ml/min; Est GFR (African American) 65.2 ml/min; Est GFR (Non-African American) 56.2 ml/min; Phosphorus 2.9 mg/dl (2.5-4.9)
[2022-11-30] MEDS: INSULIN ASPART PER UNIT CHARGE SC SCH ×4 (07:41→20:37)
[2022-11-30 08:09] LABS: Hematocrit (blood only) 35.2 % (37.0-47.0); Hemoglobin 11.8 g/dl (12.0-16.0); Mean Corpuscular Hemoglobin 29.8 pg (25.0-34.0); Mean Corpuscular Hgb Conc 33.5 g/dL (32.0-36.0); Mean Corpuscular Volume 88.9 fL (80.0-100.0); Mean Platelet Volume 9.8 fL (9.4-12.4); Nucleated RBC # (auto) 0.02 K/uL (0-0.12); Nucleated RBC % (auto) 0.3 %; Platelet Count 203 K/uL (130-400); RDW Coefficient of Variation 14.1 % (11.5-14.5); RDW Standard Deviation 45.9 fL (36.4-46.3); Red Blood Count 3.96 M/uL (4.20-5.40); White Blood Count 6.38 K/ul (4.8-10.8)
[2022-11-30] MEDS: SODIUM CHLORIDE 0.9% 1000ML 1,000 ML IV SCH ×2 (08:54→16:43)
[2022-11-30] MEDS: CIPRO 0.3%/DEXAMETHASONE 0.1% OTIC SUSP 7.5ML OTL SCH ×2 (08:55→20:25)
[2022-11-30] MEDS: ENOXAPARIN INJ 30 MG/0.3 ML SYR SQ SCH (08:55)
[2022-11-30] MEDS: DICYCLOMINE HCL 10 MG CAP PO PRN (11:41)
--- NOTE | 2022-11-30 11:48 | Hospitalist Progress Note ---
Date of Service November 30, 2022 Assessment & Plan (1) Abdominal pain: Plan: Abdominal pain CT ab/p: No acute pathology. Diffuse hepatic steatosis Lactate is normal Improving Continue bentyl prn Hold tramadol for now Advance diet (2) DIANE (acute kidney injury): Plan: DIANE due to poor oral intake Cr was 2.5 on admission Got IVF Cr is 1.13 Reduce IVF to 80cc/h. Encourage po intake (3) Hypothyroidism: Plan: Poorly controlled due to not being on meds for some months now TSH is 245 Levothyroxine resumed. Will need scripts on discharge (4) Diabetes: Plan: HbA1c 7.9 Provided DM education Needs lifestyle modification Plan to dc on metformin (5) DVT prophylaxis: Plan: Lovenox sq Has ear drops for left otitis externa I spent a total of 40 minutes coordinating, documenting and providing care for this patient excluding time spent in performance of separately billed services Admission and Anticipated Discharge Date Admission Date: November 29, 2022 Subjective Patient seen and examined. Reports abdominal pain is improving. Reports some nausea. Denies any vomiting. Denies chest pain, cough, Denies fevers, chills, diarrhea, dysuria, frequency or urgency Physical Exam Constitutional: + well hydrated and + obese; no acute distress Eyes: PERRL, conjunctivae normal, anicteric sclerae ENMT: external ear and nose normal, oropharynx normal Respiratory: normal respiratory effort, lungs clear to auscultation Cardiovascular: Rate/Rhythm: regular rate and regular rhythm S1 S2 Gastrointestinal (Abdomen): normal bowel sounds, soft, nontender, no hepatosplenomegaly Musculoskeletal: no cyanosis or clubbing, extremities motor strength 5/5 Neurologic: PERRL, EOMI, accommodation nl, no face palsy, no dysarthria Psychiatric: A+Ox3, euthymic affect Results & Data Results & Data Vital Signs (Past 12 Hours) Vital Signs Temp Pulse Pulse Resp BP Pulse Ox O2 Del Method 11/30/22 11:09 36.7 C 80 18 116/72 97 Room Air 11/30/22 07:32 36.7 C 74 18 138/81 93 Room Air 11/30/22 07:21 72 11/30/22 04:02 36.4 C L 74 16 142/83 H 95 Room Air Laboratory Results Abnormal lab results 11/29/22 11/29/22 11/30/22 Range/Units 16:18 20:40 05:41 RBC 3.96 L (4.20-5.40) M/uL Hgb 11.8 L (12.0-16.0) g/dl Hct 35.2 L (37.0-47.0) % Glucose (70-99(Fasting)) mg/dl POC Glucose 163 H 187 H (70-99) mg/dl Calcium (8.6-10.3) mg/dl 11/30/22 11/30/22 11/30/22 Range/Units 05:41 07:36 11:24 RBC (4.20-5.40) M/uL Hgb (12.0-16.0) g/dl Hct (37.0-47.0) % Glucose 111 H (70-99(Fasting)) mg/dl POC Glucose 119 H 200 H (70-99) mg/dl Calcium 7.5 L (8.6-10.3) mg/dl
[2022-12-01] MEDS: SODIUM CHLORIDE 0.9% 1000ML 1,000 ML IV SCH (05:17)
[2022-12-01] MEDS: LEVOTHYROXINE SODIUM 75 MCG TABLET PO SCH (06:25)
[2022-12-01 06:50] LABS: Hematocrit (blood only) 34.1 % (37.0-47.0); Hemoglobin 11.7 g/dl (12.0-16.0); Mean Corpuscular Hemoglobin 29.9 pg (25.0-34.0); Mean Corpuscular Hgb Conc 34.3 g/dL (32.0-36.0); Mean Corpuscular Volume 87.2 fL (80.0-100.0); Platelet Count 204 K/uL (130-400); RDW Coefficient of Variation 13.9 % (11.5-14.5); RDW Standard Deviation 44.5 fL (36.4-46.3); Red Blood Count 3.91 M/uL (4.20-5.40); White Blood Count 7.07 K/ul (4.8-10.8)
[2022-12-01] MEDS: INSULIN ASPART PER UNIT CHARGE SC SCH ×2 (08:29→12:12)
[2022-12-01] MEDS: CIPRO 0.3%/DEXAMETHASONE 0.1% OTIC SUSP 7.5ML OTL SCH (08:30)
[2022-12-01] MEDS: ENOXAPARIN INJ 30 MG/0.3 ML SYR SQ SCH (08:31)
[2022-12-01] MEDS ORDERED: DICYCLOMINE HCL 10 MG CAP PO PRN (09:00)
[2022-12-01 09:38] LABS: Calcium 7.9 mg/dl (8.6-10.3); Magnesium 1.6 mg/dl (1.7-2.4); Potassium 3.7 mmol/L (3.5-5.1)
[2022-12-01 09:44] LABS: BUN Creatinine Ratio 17.2 (10-20); Creatinine Clr Calc Pharmacy 61.7 ml/min; Est GFR (African American) 63.1 ml/min; Est GFR (Non-African American) 54.5 ml/min; Phosphorus 2.4 mg/dl (2.5-4.9)
[2022-12-01] MEDS ORDERED: POT PHOSPHATE MONOBASIC W/ SOD TAB PO ONE (09:48)
[2022-12-01] MEDS: MAGNESIUM SULFATE / D5W 1 GM/100 ML BAG IV SCH ×2 (10:29→12:21)
--- NOTE | 2022-12-01 11:27 | Gastrointestinal Consultation ---
Date of Consultation December 01, 2022 Assessment & Plan (1) Abdominal pain: Patient is a 52 years old female who presented with right-sided abdominal pain symptoms along with nausea without vomiting. History of tobacco use, narcotic use was on Suboxone before. CT abdomen and pelvis with signs of hepatic tonja atosis and status postcholecystectomy status but otherwise no acute pathology noted. Suspect she may have IBS, gastroparesis, pain from constipation. - Avoid narcotics - Bentyl 10mg TID prn abd pain - Diet as tolerated - Daily bowel regimen: Miralax 17g daily to BID - Consider repeat OP gastric emptying study and will arrange GI clinic f/u to arrange repeat endoscopies if symptoms persist - GI to sign off; pls recall PRN Supervising Physician Co-Signing Physician Notes Attending attestation I have seen, examined this patient, and agree with the findings and above by our mid-level provider NICO Luna, with the following additions: Pain resolved, feeling well Can plan on outpt follow up History of Present Illness Reason for Consultation: Abdominal pain Requesting Physician: Dr. Kyleigh Stanley Attending Physician: Dr. Jairo Cortes History of Present Illness Pt is a 52 yo female w PMHx of DM II, hypothyroidism, currently not on her outpatient medications, IBS, history of tobacco use, chronic narcotic use who presented with complaints of crampy type abdominal pain on the right upper quadrant and right lower quadrant abdominal areas. She has associated nausea but no vomiting. She reports that she was constipated however had a bowel movement while admitted and states that the abdominal pain is not any better. No fevers or chills, chest pain or shortness of breath. No signs of GI bleeding. CT abdomen and pelvis showed signs of hepatic steatosis, she is status post cholecystectomy otherwise no acute pathology. Last endoscopy work- up were over 10 years ago. She had signs of possible gastroparesis and when questioned about whether or not she had a gastric emptying study patient reports that she had many years ago which showed that her stomach emptying rate is very delayed. Today she feels better and was able to tolerate scrambled eggs for breakfast. Not having as much abdominal pain. No nausea. Allergies Allergy/AdvReac Type Severity Reaction Status Date / Time NSAIDS (Non-Steroidal Allergy Mild ` Verified 11/29/22 11:28 Anti-Inflamma acetaminophen Allergy Unknown VOMITING, Verified 10/10/20 12:37 RASH nabumetone Allergy Unknown swelling Verified 10/10/20 12:37 Home Medications Medication Instructions Recorded Confirmed Type levothyroxine 112 mcg tablet 0 mcg PO DAILY 12/21/19 11/29/22 History mupirocin 2 % topical ointment 1 applic topical BID 12/21/19 10/10/20 History Patient History Medical History Depression Endometriosis Hypothyroidism IBS (irritable bowel syndrome) Migraine Social History Smoking Status: Current every day smoker Cigarettes Per Day: 5; Second Hand Exposure: No; Do You Dip or Chew Tobacco: No; Tobacco Cessation Education Requested by Patient: No Hx Alcohol Use: No Hx Substance Use: No Preferred Language: Albanian Communication Ability: Effective Cream Beater Required: No Beliefs That Will Affect Care: None Current Living Situation: Family Other Information That Helps Us Care for You: No Feels Safe at Home: Yes Safety Concerns: Feels Safe At This Time Assistive Devices: None Review of Systems Review of Systems: All systems reviewed & are unremarkable except as noted in HPI & below Physical Exam Constitutional: WD/WN, vitals as above well groomed, cooperative and comfortable Eyes: PERRL, conjunctivae normal, anicteric sclerae ENMT: external ear and nose normal, oropharynx normal Respiratory: normal respiratory effort, lungs clear to auscultation Cardiovascular: RRR, no murmur, no edema Gastrointestinal (Abdomen): normal bowel sounds, soft, nontender, no hepatosplenomegaly Skin: no rashes, warm and dry no jaundice Psychiatric: A+Ox3, euthymic affect Lymphatic: no lymphedema Results & Data Vital Signs (Past 12 Hours) Vital Signs Temp Pulse Pulse Resp BP BP Pulse Ox 12/01/22 11:15 36.6 C 76 18 147/85 H 96 12/01/22 08:30 12/01/22 06:02 86 12/01/22 08:06 36.9 C 85 18 143/84 H 95 12/01/22 02:55 37.0 C 86 18 128/64 98 12/01/22 00:00 91 H O2 Del Method 12/01/22 11:15 Room Air 12/01/22 08:30 Room Air 12/01/22 06:02 12/01/22 08:06 Room Air 12/01/22 02:55 Room Air 12/01/22 00:00
--- NOTE | 2022-12-01 13:41 | Discharge Summary ---
Date of Service December 01, 2022 Admission HPI Per Admitting Provider A 52-year-old female with past medical history significant for type 2 diabetes, but the patient states she is not taking medication for the last 2 years and no recent HbA1c level, history of hypothyroidism, she stopped taking medication for thyroidism for some time now, chronic rhinitis, irritable bowel syndrome, history of tobacco use disorder, chronic narcotic use. The patient used to get pain medication from pain doctor, but she is no longer going there because of the cost, and not on pain medications for some time now,.She was us\saurabh uzme-day-cnrhxqt pain medication for abdominal pain. The patient also has a band in lower extremity. When asked about it, she says she is on probation since 2020 because of using the old prescription for Suboxone. The patient complains of nausea. She was constipated, but had several bowel movements today. Denies any chest pain, no shortness of breath, no cough, no fevers. Has some headache. Has some left earache. No runny nose, no sore throat. No blurred visions. Hemodynamically stable. Admission Exam Per Admitting Provider GENERAL: The patient is obese, not in acute distress. VITAL SIGNS: Temperature 36.8, pulse 92, respiratory rate 16, blood pressure 139/95, oxygen 96% on room air. HEENT: Pupils equal, round and reactive to light. Oral mucosa, poor dentition.Left ear erythema seen close to ear drum NECK: No JVD. No neck masses. CARDIOVASCULAR: S1 and S2 heard. Regular rate and rhythm. No murmur, no gallop. RESPIRATORY SYSTEM: Normal AP diameter. No accessory muscle use. No wheezing, no crackles. ABDOMEN: Soft, bowel sounds present. Mild discomfort. Mild guarding, no rigidity, no distension. CENTRAL NERVOUS SYSTEM: Cranial nerves II through XII are grossly intact, nonfocal. EXTREMITIES: No edema, no erythema Principal Diagnosis Abdominal pain Poorly controlled hypothyroidism Diabetes mellitus Acute kidney injury Discharge Exam Constitutional + well hydrated and + obese; no acute distress Eyes PERRL, conjunctivae normal, anicteric sclerae ENMT external ear and nose normal, oropharynx normal Respiratory normal respiratory effort, lungs clear to auscultation Cardiovascular Rate/Rhythm: regular rate and regular rhythm S1 S2 Gastrointestinal (Abdomen) normal bowel sounds, soft, nontender, no hepatosplenomegaly Musculoskeletal no cyanosis or clubbing, extremities motor strength 5/5 Neurologic PERRL, EOMI, accommodation nl, no face palsy, no dysarthria Psychiatric A+Ox3, euthymic affect Discharge Data Allergies Allergy/AdvReac Type Severity Reaction Status Date / Time NSAIDS (Non-Steroidal Allergy Mild ` Verified 11/29/22 11:28 Anti-Inflamma acetaminophen Allergy Unknown VOMITING, Verified 10/10/20 12:37 RASH nabumetone Allergy Unknown swelling Verified 10/10/20 12:37 Consultations 11/29/22 02:35 ED Decision to Admit Stat 11/29/22 08:00 Consult Gastroenterology Routine Ordered Studies 11/28/22 23:32 CT abd pelvis wo con Stat Hospital Course (1) Abdominal pain: Abdominal pain CT ab/p: No acute pathology. Diffuse hepatic steatosis Lactate is normal Was managed with prn bentyl Significantly improved. Currently intermittent Patient has been tolerating po and moving her bowels Advised to follow up with PCP and abdominal pain persists, may need GI referral (2) DIANE (acute kidney injury): DIANE due to poor oral intake Cr was 2.5 on admission Got IVF DIANE resolved. Cr is 1.16 today (3) Hypothyroidism: Poorly controlled due to not being on meds for some months now TSH is 245 Levothyroxine resumed. Prescription sent for levothyroxine 224mcg daily which she stated was her previous dose. PCP to check TFT in 6-8 weeks and adjust meds as needed (4) Diabetes: HbA1c 7.9 Provided DM education Needs lifestyle modification Has been off her metformin for a while. Script sent Script also sent for glucometer strips per request. She stated she has other diabetic supplies Total Time Total Time Spent Total Time Spent (In Minutes): 45 Total Time Includes: Examination of the Patient, Discharge Planning and Medication Reconciliation Discharge Plan Discharge Items Patient Disposition: Home - Self-Care Reason For Visit: ABDOMINAL PAIN Discharge Diagnosis: Abdominal pain Poorly controlled hypothyroidism Diabetes mellitus Acute kidney injury Activity: Resume your previous activity Non-emergency contact: Primary Care Provider Call non-emergency contact if: you have any medication questions and your symptoms worsen Follow-up/Referrals: Timoteo Muniz MD [Outside Practitioners] - (Date & Time 12/09/2022 11:00 AM Provider Timoteo Muniz MD Department [facility], [place] ) Diet: Carb Consistent or DM2 Addtl Attending Provider Instructions: Mrs Bhandari You came to the hospital with abdominal pain. You were extensively evaluated and found to have poorly controlled hypothyroidism and diabetes mellitus due to poor medication adherence. Your symptoms improved. You are being discharged home to resume levothyroxine and metformin. Please take medications as prescribed. Please follow up with your Primary Doctor. You will need repeat thyroid function test in 6-8 weeks You can use bentyl as needed for abdominal cramps. It was a pleasure taking care of you. Pending Studies at Discharge: No Stand-Alone Forms: My [facility] [place], Smoking Cessation Medications and DC Order Prescriptions: New dicyclomine 10 mg Capsule 10 mg PO TID PRN (Reason: abdominal pain) Qty: 9 0RF metformin 500 mg tablet extended release 24 hr 500 mg PO BID Qty: 60 0RF (DME) OneTouch Verio test strips Strip See Rx Instructions .Route Qty: 100 0RF Rx Instructions: As directed. Check blood glucose twice a day magnesium oxide 400 mg magnesium tablet 400 mg PO DAILY Qty: 7 0RF Continued mupirocin 2 % ointment 1 applic TOPICAL BID Rx Instructions: Rx filled 11/28/2022 Changed levothyroxine 112 mcg tablet 224 mcg PO DAILY 30 Days Qty: 60 0RF Rx Instructions: Patient stopped taking meds ~2 months, was taking 224 mcg daily. Discharge Orders: Discharge Order (Routine); Ordered 12/01/22 Ordered By: Kyleigh Griffith/Other Patient Handouts: Managing Type 2 Diabetes Admission Data Admit Date/Time: 11/29/22 05:12 Attending Provider: Kyleigh Stanley I. Admit Provider: Hubert Guidry Primary Care Provider: PCP,NO Other Providers: Hubert Guidry ; Sage Moon ; Yfn Rapp ; Purnima Shepherd ; Ana Moscoso ; Sruthi Plata ; Re Marin ; Marcelino Gallegos ; Jairo Cortes ; Matilde Garzon ; Coleman Weston ; Colt Mirza ; Steph Harding ; Pamela Deal ; Sofi Dooley ; Blanquita Fulton ; George Wyatt ; Pedro Luis Weaver ; Jon Lerner ; Nafisa Vargas ; Bryant Simmons Jr Other Interventions: Discharge Summary Assessment (RN) Last Done: 12/01/22 14:46
--- NOTE | 2022-12-04 13:55 | Coding Query ---
CODING QUERY To promote full compliance with coding requirements relating to patient care, provider participation is requested in all cases of signal supervisor uncertainty. Please assist us with the question(s) below: Coding Question(s): Abdominal pain is documented with a history of IBS, and the Gastrointestinal Consultation on 12/01 documents, "Suspect she may have IBS, gastroparesis, pain from constipation". Please specify below, in your clinical opinion, the most likely cause of abdominal pain that was treated during this admission: ( ) abdominal pain was most likely due to IBS with Constipation ( ) abdominal pain was most likely due to Gastroparesis ( ) abdominal pain was most likely due to Other: Please Specify ( x ) abdominal pain was from Unknown most likely source Physician's Response(s): Thank you Sandar Burgos Principal Diagnosis: "that condition established after study, to be chiefly responsible for occasioning the admission of the patient to the hospital for care." Co-Existing Principal Diagnosis: "when two or more diagnoses equally meet the criteria for principal diagnosis as determined by the circumstances of admission, diagnostic work up, and/or therapy provided, and the Alphabetic Index, Tabular List, or another coding guideline does not provide sequencing direction, any one of the diagnoses may be sequenced first." "When the physician has documented what appears to be a current diagnosis in the body of the record, but has not included the diagnosis in the final diagnostic statement, the physician should be asked whether the diagnosis should be added." (Source Coding Clinic 2 QTR90. p3-4) ITZEL
== END 2022-12-01 14:45 | disposition home or self-care (01) | DRG 392 ==
LOC: ED 22:11 → INTOOBSV 11-29 05:12 → EDINP 11-29 05:12 → 2W 11-29 07:39

== ENCOUNTER 2023-07-01 13:39 | Inpatient (IN) ==
[2023-07-01] MEDS ORDERED: ONDANSETRON INJ 2 MG/ML 2 ML VIAL IV STA ×2 (13:53→17:50)
[2023-07-01 15:59] LABS: Basophils # (auto) 0.09 K/uL (0.00-0.20); Eosinophils # (auto) 0.05 K/uL (0.00-0.50); Eosinophils % (auto) 0.5 %; Hematocrit (blood only) 44.4 % (37.0-47.0); Hemoglobin 14.5 g/dl (12.0-16.0); Immature Granulocytes # (auto) 0.03 K/uL (0.01-0.20); Immature Granulocytes % (auto) 0.3 %; Lymphocytes # (auto) 2.18 K/uL (1.20-3.40); Lymphocytes % (auto) 23.3 %; Mean Corpuscular Hemoglobin 28.5 pg (25.0-34.0); Mean Corpuscular Hgb Conc 32.7 g/dL (32.0-36.0); Mean Corpuscular Volume 87.2 fL (80.0-100.0); Mean Platelet Volume 9.1 fL (9.4-12.4); Monocytes # (auto) 0.58 K/uL (0.11-0.59); Monocytes % (auto) 6.2 %; Neutrophils # (auto) 6.42 K/uL (1.40-6.50); Neutrophils % (auto) 68.7 %; Platelet Count 290 K/uL (130-400); RDW Coefficient of Variation 13.4 % (11.5-14.5); RDW Standard Deviation 43.1 fL (36.4-46.3); Red Blood Count 5.09 M/uL (4.20-5.40); White Blood Count 9.35 K/ul (4.8-10.8)
[2023-07-01 16:13] LABS: Albumin Level 4.8 gm/dl (3.4-5.0); Bilirubin,Total 0.5 mg/dl (0.2-1.0); Calcium 10.1 mg/dl (8.6-10.3); Potassium 3.9 mmol/L (3.5-5.1)
[2023-07-01 16:19] LABS: Albumin Globulin Ratio 1.5 (0.9-2); Creatinine Clr Calc Pharmacy 54.3 ml/min; Est GFR (African American) 50.8 ml/min; Est GFR (Non-African American) 43.8 ml/min; Globulin 3.2 gm/dl (2.5-4.0)
[2023-07-01 17:31] LABS: Appearance Urine Clear (Clear); Bilirubin Urine Negative (Negative); Blood Urine 1+ (Negative); Color Urine Yellow; Glucose Urine UA Negative (Negative); Ketones Urine Negative (Negative); Leukocyte Esterase Urine Negative (Negative); Nitrite Urine Negative (Negative); Protein Urine Trace (Negative); Specific Gravity Urine 1.026 (1.000-1.030); Urobilinogen Urine Negative (Negative)
[2023-07-01] MEDS ORDERED: SODIUM CHLORIDE 0.9% 1,000 ML IV ONE (17:40)
[2023-07-01 17:46] LABS: Bacteria Urine Negative (Negative); Epithelial Cell Urine 0-5 /lpf (0-5); RBC Urine 0-4 /hpf (0-4); WBC Urine 0-5 /hpf (0-5)
[2023-07-01 17:47] LABS: Uric Acid Crystals Urine Present (None Prsent)
[2023-07-01] MEDS ORDERED: PROMETHAZINE 12.5 MG/50.5 ML BAG IV STA ×2 (17:50→19:51)
[2023-07-01] MEDS ORDERED: MoRPHine SULFATE 4 MG/ML 1 ML CARP\\VIAL IV STA ×2 (17:50→19:10)
--- NOTE | 2023-07-01 17:55 | Emergency Department Note ---
Impression & Plan Diffuse abdominal pain, DIANE (acute kidney injury), Vomiting and diarrhea, Acute dehydration ED Provider Note NAME: NATHALIA MARY AGE: 53 SEX: F : 1970 ARRIVES VIA: Walk-In INFORMANT: [Patient] ED PROVIDER(S): [Camron Pacheco MD] CHIEF COMPLAINT: Vomiting, abdominal pain HISTORY OF PRESENT ILLNESS: The patient is a 53-year-old female who presents to the ED with complaints of 3 days of nausea and vomiting as well as some intermittent diarrhea. She has crampy abdominal pain. Her pain is mostly to the right side of the abdomen. The patient has developed hemorrhoids from all of the diarrhea. There has been no fever, no cough or congestion. She has tried dicyclomine a few times and it really has not helped. The patient spoke with her doctor's office, she was referred to the ER as she has a history of a previous bowel obstruction. She has had a hysterectomy, cholecystectomy and appendectomy previously. No sick contacts, no suspicious food eaten. PMHx/PSHx/Social Hx: See Below PHYSICAL EXAM: GENERAL: Patient is in no acute distress. HEENT: No acute trauma, normocephalic atraumatic, mucous membranes moist, no nasal congestion. NECK: No stridor, no adenopathy, no meningismus, trachea is midline. LUNGS: Clear to auscultation bilaterally, no wheeze, no rhonchi, breath sounds equal. HEART: Without murmurs gallops or rubs, regular rate and rhythm. ABDOMEN: Soft, mildly tender along the right side of the abdomen, bowel sounds are positive. No peritonitis. EXTREMITIES: No cyanosis, full range of motion of all the joints without pain or difficulty. NEUROLOGIC: Oriented x 3, no acute motor or sensory deficits, no focal weakness. SKIN: No jaundice, no diaphoresis. DIFFERENTIAL DIAGNOSIS: Bowel obstruction, foodborne or viral illness, dehydration, electrolyte imbalance, pancreatitis, colitis or diverticulitis, among others. EMERGENCY DEPARTMENT PROCEDURES: MEDICAL DECISION MAKING: There was no leukocytosis or concerning anemia. There was a normal platelet count. Creatinine was elevated consistent with some acute kidney injury and likely dehydration. No electrolyte abnormality requiring emergent correction. No concerning liver enzyme elevation. No findings of pancreatitis. ECG shows a sinus tachycardia, no ischemia. Urinalysis did not show findings of infection. Abdominal and pelvis CT did not show bowel obstruction or acute surgical pathology. On exam, the patient did not have peritonitis. She was not toxic or febrile. She complained of diffuse abdominal pain as well as nausea. The patient received IV saline, 1 L. She received IV lactated Ringer's 1 L. She received IV morphine for pain and eventually IV Dilaudid for additional pain control. She was given IV Zofran, a second dose of IV Zofran was administered. She received IV Phenergan, a second dose of IV Phenergan was administered. Despite the above medications and treatment, the patient persists with nausea and abdominal pain. She does not feel safe for discharge home. She is afraid that she will not be able to tolerate oral intake. Given the dehydration and acute kidney injury, given her lack of improvement in the ED, hospitalization was felt warranted. I spoke with the patient and case management, the on-call hospitalist was consulted. At this point, the cause for her symptoms is unclear but may certainly be viral or foodborne in origin. Prior/Outside records/notes reviewed: Discharge summary note from 04/29/2023, admission for small bowel obstruction. ECG per my interpretation: Indication was abdominal pain. The ECG shows a sinus tachycardia with a rate of 108. There is no ST elevation, no PVCs. There is some baseline artifact. The QTc is 474. Continuous Cardiac Monitoring per my interpretation: An order was placed for continuous cardiac monitoring. The monitor shows a rate of 106 with sinus tachycardia. Imaging/x-ray results per my interpretation: Chronic Medical/Social conditions affecting care: Gastroparesis, previous small bowel obstruction. Care/Management discussed with: Case management as well as the on-call hospitalist, Dr. Guidry. Level of care consideration(s): After review of the information above and other included data: --I believe the patient requires escalation of care to admission Observation Note: The patient was placed in observation status at 1745. Observation was initiated to ensure improvement in symptoms and to ensure adequate hydration. During the time in observation, the patient was frequently reassessed and received IV fluids, IV nausea and IV pain medication. On Final reassessment the patient was still nauseated and complaining of discomfort--the patient will be admitted at this time. Total observation time of over 5 hours. DISPOSITION: Admission Past Med/Surg History Medical History Nausea and vomiting Migraine Depression Endometriosis IBS (irritable bowel syndrome) Hypothyroidism Social History Smoking Status: Current every day smoker Tobacco Type: Cigarettes Cigarettes Per Day: 10 cigarettes (1/2 pack); Second Hand Exposure: Yes; Do You Dip or Chew Tobacco: No; Tobacco Cessation Education Requested by Patient: No Hx Alcohol Use: No Hx Substance Use: No Preferred Language: Arabic Communication Ability: Effective Nurseryman Assistant Required: No Beliefs That Will Affect Care: None Current Living Situation: Family Current Living Situation Comment: father staying w/ pt and grandson Other Information That Helps Us Care for You: No Feels Safe at Home: Yes Safety Concerns: Feels Safe At This Time Assistive Devices: None Allergies Allergies Allergy/AdvReac Type Severity Reaction Status Date / Time nabumetone Allergy Intermediate swelling Verified 07/01/23 18:24 NSAIDS (Non-Steroidal Allergy Intermediate SWELLING Verified 07/01/23 18:24 Anti-Inflamma acetaminophen AdvReac Intermediate VOMITING, Verified 07/01/23 18:24 RASH--RAISES LIVER ENZYMES Home Meds Home Medications Medication Instructions Recorded Confirmed mupirocin 2 % topical ointment 1 applic topical BID PRN irritation 12/21/19 07/01/23 omeprazole 40 mg capsule,delayed 40 mg PO DAILYBB 01/14/23 07/01/23 release ondansetron 4 mg disintegrating 4 mg translingual DIRECTED PRN 04/24/23 07/01/23 tablet NAUSEA/VOMITING albuterol sulfate 90 mcg/actuation 2 puff inhalation DIRECTED PRN 07/01/23 07/01/23 aerosol inhaler Shortness Of Breath Or Wheezing betamethasone dipropionate 0.05 % 1 applic topical DIRECTED PRN 07/01/23 07/01/23 topical ointment Skin Irritation fluticasone propionate 50 1 spray intranasal DAILY PRN 07/01/23 07/01/23 mcg/actuation nasal Congestion spray,suspension insulin glargine 100 unit/mL (3 20 unit subcut QAM 07/01/23 07/01/23 mL) subcutaneous pen levothyroxine 200 mcg tablet 200 mcg PO DAILYBB 07/01/23 07/01/23 metformin 500 mg tablet,extended 1,000 mg PO BID 07/01/23 07/01/23 release 24 hr Previous Rx's Medication Instructions Recorded blood sugar diagnostic (OneTouch #100 ea 12/01/22 Verio test strips) blood sugar diagnostic (OneTouch #100 ea 04/29/23 Verio test strips) dicyclomine 10 mg capsule 10 mg PO TID PRN abdominal pain 04/29/23 #20 caps lancets 33 gauge (OneTouch Delica #100 ea 04/29/23 Plus Lancet) pen needle, diabetic 32 gauge x #100 ea 04/29/23 5/32" (Pen Needle) Results & Data (ED) Vital Signs Vital Signs - 24 hr 07/01/23 13:49 07/01/23 16:09 07/01/23 16:09 Temperature 36.6 C Temperature Source Temporal Artery Scan Pulse Rate 125 H Pulse Rate [Apical] Pulse Rate [Left Finger] 108 H Respiratory Rate 16 14 Blood Pressure 146/89 H Blood Pressure [Left Arm] 133/81 Blood Pressure Mean 108 Blood Pressure Mean [Left Arm] 98 Pulse Oximetry 96 97 97 Oxygen Delivery Method Room Air Room Air Oxygen Flow Rate 0 Sepsis Recent Fever Within 48 Hours No Sepsis New/Unexplained Change in Mental Status No Sepsis Action Taken by Nursing No Action Required 07/01/23 18:00 07/01/23 19:01 07/01/23 19:27 Temperature Temperature Source Pulse Rate 94 H Pulse Rate [Apical] 87 Pulse Rate [Left Finger] 93 H Respiratory Rate 16 20 Blood Pressure Blood Pressure [Left Arm] 133/90 144/81 H Blood Pressure Mean Blood Pressure Mean [Left Arm] 104 102 Pulse Oximetry 96 99 Oxygen Delivery Method Room Air Room Air Oxygen Flow Rate Sepsis Recent Fever Within 48 Hours Sepsis New/Unexplained Change in Mental Status Sepsis Action Taken by Nursing 07/01/23 21:25 Temperature Temperature Source Pulse Rate Pulse Rate [Apical] 105 H Pulse Rate [Left Finger] Respiratory Rate 12 Blood Pressure Blood Pressure [Left Arm] 144/109 H Blood Pressure Mean Blood Pressure Mean [Left Arm] 120 Pulse Oximetry 96 Oxygen Delivery Method Room Air Oxygen Flow Rate Sepsis Recent Fever Within 48 Hours Sepsis New/Unexplained Change in Mental Status Sepsis Action Taken by [facility] Medications Current Medication List: was personally reviewed by me Laboratory Data Attestation: I reviewed the patient's lab results. 07/01/23 15:37 11/15/23 15:37 Lab Results 07/01/23 07/01/23 Range/Units 15:37 16:20 WBC 9.35 (4.8-10.8) K/ul RBC 5.09 (4.20-5.40) M/uL Hgb 14.5 (12.0-16.0) g/dl Hct 44.4 (37.0-47.0) % MCV 87.2 (80.0-100.0) fL MCH 28.5 (25.0-34.0) pg MCHC 32.7 (32.0-36.0) g/dL RDW Std Deviation 43.1 (36.4-46.3) fL RDW Coeff of Adolfo 13.4 (11.5-14.5) % Plt Count 290 (130-400) K/uL MPV 9.1 L (9.4-12.4) fL Immature Gran % (Auto) 0.3 % Neut % (Auto) 68.7 % Lymph % (Auto) 23.3 % [place] % (Auto) 6.2 % Eos % (Auto) 0.5 % Baso % (Auto) 1.0 % Neut # (Auto) 6.42 (1.40-6.50) K/uL Lymph # (Auto) 2.18 (1.20-3.40) K/uL [place] # (Auto) 0.58 (0.11-0.59) K/uL Eos # (Auto) 0.05 (0.00-0.50) K/uL Baso # (Auto) 0.09 (0.00-0.20) K/uL Immature Gran # (Auto) 0.03 (0.01-0.20) K/uL Sodium 140 (136-145) mmol/L Potassium 3.9 (3.5-5.1) mmol/L Chloride 105 (98-107) mmol/L Carbon Dioxide 25 (21-32) mmol/L Anion Gap 10 (3-11) BUN 29 H (6-23) mg/dl Creatinine 1.38 H (0.6-1.2) mg/dl Est Cr Clr Drug Dosing 54.3 ml/min Est GFR ( Amer) 50.8 ml/min Est GFR (Non-Af Amer) 43.8 ml/min BUN/Creatinine Ratio 21.0 H (10-20) Glucose 152 H (70-99(Fasting)) mg/dl Calcium 10.1 (8.6-10.3) mg/dl Total Bilirubin 0.5 (0.2-1.0) mg/dl AST 14 (13-39) U/L ALT 21 (7-52) U/L Alkaline Phosphatase 89 (34-104) U/L Total Protein 8.0 (6.0-8.3) gm/dl Albumin 4.8 (3.4-5.0) gm/dl Globulin 3.2 (2.5-4.0) gm/dl Albumin/Globulin Ratio 1.5 (0.9-2) Lipase 48 (11-82) U/L Urine Color Yellow Urine Appearance Clear (Clear) Urine pH 5.0 (4.5-7.5) Ur Specific [place] 1.026 (1.000-1.030) Urine Protein Trace H (Negative) Urine Glucose (UA) Negative (Negative) Urine Ketones Negative (Negative) Urine Blood 1+ H (Negative) Urine Nitrite Negative (Negative) Urine Bilirubin Negative (Negative) Urine Urobilinogen Negative (Negative) Ur Leukocyte Esterase Negative (Negative) Urine RBC 0-4 (0-4) /hpf Urine WBC 0-5 (0-5) /hpf Ur Epithelial Cells 0-5 (0-5) /lpf Uric Acid Crystals Present A (None Prsent) Urine Bacteria Negative (Negative) Administered Medications Enoxaparin Sodium (Enoxaparin Inj 40 Mg/0.4 Ml Syr) 40 mg SQ HS ANTHONY Stop: 07/31/23 23:29 Last Admin: 07/01/23 23:37 Dose: 40 mg Documented By: YOSEPH Sodium Chloride (Nss) 1,000 mls @ 125 mls/hr IV .Q8H ANTHONY Stop: 07/31/23 23:13 Last Admin: 07/01/23 23:51 Dose: 125 mls/hr Documented By: YOSEPH Discontinued Medications Hydromorphone HCl (Hydromorphone Inj 0.5 Mg/0.5 Ml Syr) 0.5 mg IV NOW STA Stop: 07/01/23 19:52 Last Admin: 07/01/23 20:12 Dose: 0.5 mg Documented By: TERESA Hydromorphone HCl (Hydromorphone Inj 0.5 Mg/0.5 Ml Syr) 0.5 mg IV NOW STA Stop: 07/01/23 22:42 Last Admin: 07/01/23 22:51 Dose: 0.5 mg Documented By: TERESA Sodium Chloride (Nss) 1,000 mls @ 999 mls/hr IV .Q1H1M ONE Stop: 07/01/23 18:40 Last Infusion: 07/01/23 20:12 Dose: Infused Documented By: Admin: 07/01/23 18:05 Dose: 999 mls/hr Documented By: SACHIN Promethazine HCl (Phenergan) 12.5 mg in 50.5 mls @ 202 mls/hr IV NOW STA Stop: 07/01/23 18:04 Last Infusion: 07/01/23 18:19 Dose: Infused Documented By: Admin: 07/01/23 18:05 Dose: 202 mls/hr Documented By: SACHIN Lactated Ringer's (Lr) 1,000 mls @ 999 mls/hr IV .Q1H1M ONE Stop: 07/01/23 19:51 Last Infusion: 07/01/23 20:50 Dose: Infused Documented By: Admin: 07/01/23 19:30 Dose: 999 mls/hr Documented By: TERESA Promethazine HCl (Phenergan) 12.5 mg in 50.5 mls @ 202 mls/hr IV NOW STA Stop: 07/01/23 20:05 Last Infusion: 07/01/23 20:31 Dose: Infused Documented By: Admin: 07/01/23 20:12 Dose: 202 mls/hr Documented By: TERESA Insulin Aspart (Insulin Aspart Per Unit Charge) 0 units SC ONE ONE Stop: 07/01/23 23:46 Last Admin: 07/01/23 23:50 Dose: 4 units Documented By: YOSEPH Co-signed By: YONI Morphine Sulfate (Morphine Sulfate 4 Mg/Ml 1 Ml Carp\\Vial) 4 mg IV NOW STA Stop: 07/01/23 17:51 Last Admin: 07/01/23 18:04 Dose: 4 mg Documented By: SACHIN Morphine Sulfate (Morphine Sulfate 4 Mg/Ml 1 Ml Carp\\Vial) 4 mg IV NOW STA Stop: 07/01/23 19:11 Last Admin: 07/01/23 19:29 Dose: 4 mg Documented By: TERESA Ondansetron HCl (Ondansetron Inj 2 Mg/Ml 2 Ml Vial) 4 mg IV NOW STA Stop: 07/01/23 13:54 Last Admin: 07/01/23 15:29 Dose: 4 mg Documented By: ELDER Ondansetron HCl (Ondansetron Inj 2 Mg/Ml 2 Ml Vial) 4 mg IV NOW STA Stop: 07/01/23 17:51 Last Admin: 07/01/23 18:05 Dose: 4 mg Documented By: ASW Imaging Data Radiologist's Impression: Abdomen/Pelvis CT 07/01/23 17:50 Exam(s): CT ABDOMEN + PELVIS Without Contrast EXAM: CT Abdomen and Pelvis Without Intravenous Contrast CLINICAL HISTORY: Reason for exam: poss obstruc. TECHNIQUE: Axial computed tomography images of the abdomen and pelvis without intravenous contrast. CTDI is 26.72 mGy and DLP is 1303.93 mGy-cm. Automated exposure control was utilized for the study. A dose lowering technique was utilized adhering to the principles of ALARA. COMPARISON: CT abdomen/pelvis on 04/24/2023 FINDINGS: Lung bases: Unremarkable. No mass. No consolidation. ABDOMEN: Liver: Hepatic steatosis. Gallbladder and bile ducts: Unremarkable. No calcified stones. No ductal dilation. Pancreas: Unremarkable. No ductal dilation. Spleen: Unremarkable. No splenomegaly. Adrenals: Unremarkable. No mass. Kidneys and ureters: Unremarkable. No hydronephrosis or stone. Stomach and bowel: Evaluation of the stomach is limited by underdistention. No mucosal thickening. No bowel obstruction or inflammation. No small bowel obstruction. PELVIS: Appendix: Prior appendectomy. Bladder: Unremarkable. No stones. Reproductive: Prior hysterectomy. ABDOMEN and PELVIS: Intraperitoneal space: Unremarkable. No free air. No significant fluid collection. Bones/joints: Degenerative changes of the spine. No acute fracture. No dislocation. Soft tissues: Unremarkable. Vasculature: Unremarkable. No abdominal aortic aneurysm. Lymph nodes: Unremarkable. No enlarged lymph nodes. IMPRESSION: Hepatic steatosis. No acute abnormality in the abdomen and pelvis. Electronically signed by: Tyrone Rivero M.D. 07/01/23 19:31 PM Discharge Plan Visit Data Chief Complaint: Nausea Stated Complaint: VOMITING, ABDOMINAL/FLANK/BACK PAIN, CHEST PAIN ED Provider: Camron Pacheco Discharge Problem: Diffuse abdominal pain, DIANE (acute kidney injury), Vomiting and diarrhea, Acute dehydration Patient Disposition: Admitted As Inpatient Condition: Fair Discharge Instructions Interventions: ED Discharge Assessment Last Done: 07/01/23 22:48
[2023-07-01] MEDS ORDERED: LACTATED RINGER'S 1,000 ML IV ONE (18:51)
--- NOTE | 2023-07-01 19:32 | CT Scan Report ---
Exam(s): CT ABDOMEN + PELVIS Without Contrast EXAM: CT Abdomen and Pelvis Without Intravenous Contrast CLINICAL HISTORY: Reason for exam: poss obstruc. TECHNIQUE: Axial computed tomography images of the abdomen and pelvis without intravenous contrast. CTDI is 26.72 mGy and DLP is 1303.93 mGy-cm. Automated exposure control was utilized for the study. A dose lowering technique was utilized adhering to the principles of ALARA. COMPARISON: CT abdomen/pelvis on 04/24/2023 FINDINGS: Lung bases: Unremarkable. No mass. No consolidation. ABDOMEN: Liver: Hepatic steatosis. Gallbladder and bile ducts: Unremarkable. No calcified stones. No ductal dilation. Pancreas: Unremarkable. No ductal dilation. Spleen: Unremarkable. No splenomegaly. Adrenals: Unremarkable. No mass. Kidneys and ureters: Unremarkable. No hydronephrosis or stone. Stomach and bowel: Evaluation of the stomach is limited by underdistention. No mucosal thickening. No bowel obstruction or inflammation. No small bowel obstruction. PELVIS: Appendix: Prior appendectomy. Bladder: Unremarkable. No stones. Reproductive: Prior hysterectomy. ABDOMEN and PELVIS: Intraperitoneal space: Unremarkable. No free air. No significant fluid collection. Bones/joints: Degenerative changes of the spine. No acute fracture. No dislocation. Soft tissues: Unremarkable. Vasculature: Unremarkable. No abdominal aortic aneurysm. Lymph nodes: Unremarkable. No enlarged lymph nodes. IMPRESSION: Hepatic steatosis. No acute abnormality in the abdomen and pelvis. Electronically signed by: Tyrone Rivero M.D. 07/01/23 19:31 PM
[2023-07-01] MEDS ORDERED: HYDROmorphone INJ 0.5 MG/0.5 ML SYR IV STA ×2 (19:51→22:41)
--- NOTE | 2023-07-01 22:34 | History & Physical Report ---
Date of Service July 01, 2023 Assessment & Plan (1) Abdominal pain: Plan: 53-year-old female with past medical history significant for type 2 diabetes, hypothyroidism, chronic rhinitis, COPD, irritable bowel syndrome, migraine, presents with ongoing nausea ,vomiting and abdominal pain. Abdominal pain Nausea and vomiting Diabetes Most likely gastroparesis We will place on IV Reglan as needed IV Dilaudid as needed CT abdomen pelvis okay IV fluids Continue omeprazole and Bentyl as needed Consult GI in a.m. Diabetes Continue home Lantus Sliding scale Follow blood sugars and HbA1c level Hypothyroidism On Synthyroid Follow-up with PCP History of COPD Stable Continue home inhalers DVT prophylaxis Lovenox Disposition Med/telemetry Full code History of Present Illness Chief Complaint: Nausea vomiting and abdominal pain Primary Care Provider: Timoteo Muniz MD 53-year-old female with past medical history significant for type 2 diabetes, hypothyroidism, chronic rhinitis, COPD, irritable bowel syndrome, migraine, presents with ongoing nausea ,vomiting and abdominal pain. She says she is having lot abdominal cramps. Any movement causing cramps get worse. Able to tolerate crackers but not able to eat much. Bentyl not helping much. Has some headache. Vision is okay. No runny nose. Has sore throat from vomiting. Sometimes has chest pains. No shortness of breath. Since last 1 week she did not had a normal bowel movement. After anything she eats in 10 minutes she f eels like going to bathroom but has only small amount of bowel movement. Hemodynamic stable Past med history. As mentioned above. Past surgical history. Dental surgery. External hemorrhoidectomy. Fulguration of minimal endometriosis. Left fulguration of oviducts. Laparoscopic lysis of adhesions. Laparoscopic oophorectomy. Removal of foreign body. Laparoscopic appendectomy. Laparoscopic cholecystectomy. Total abdominal hysterectomy with removal of tubes. Social history. Smokes half pack a day for 5 years. Alcohol occasional. No drug use. Family history. Maternal aunt had breast cancer. Maternal grandmother had breast cancer. Mother had breast cancer. Paternal grandmother had diabetes. Father has hypertension. Maternal aunt has ovarian cancer. Allergies Allergy/AdvReac Type Severity Reaction Status Date / Time nabumetone Allergy Intermediate swelling Verified 07/01/23 18:24 NSAIDS (Non-Steroidal Allergy Intermediate SWELLING Verified 07/01/23 18:24 Anti-Inflamma acetaminophen AdvReac Intermediate VOMITING, Verified 07/01/23 18:24 RASH--RAISES LIVER ENZYMES Home Medications Medication Instructions Recorded Confirmed Type mupirocin 2 % topical ointment 1 applic topical BID PRN irritation 12/21/19 07/01/23 History blood sugar diagnostic (OneTouch #100 ea 12/01/22 Rx Verio test strips) omeprazole 40 mg capsule,delayed 40 mg PO DAILYBB 01/14/23 07/01/23 History release ondansetron 4 mg disintegrating 4 mg translingual DIRECTED PRN 04/24/23 07/01/23 History tablet NAUSEA/VOMITING blood sugar diagnostic (OneTouch #100 ea 04/29/23 Rx Verio test strips) dicyclomine 10 mg capsule 10 mg PO TID PRN abdominal pain 04/29/23 07/01/23 Rx #20 caps lancets 33 gauge (OneTouch Delica #100 ea 04/29/23 Rx Plus Lancet) pen needle, diabetic 32 gauge x #100 ea 04/29/23 Rx 5/32" (Pen Needle) albuterol sulfate 90 mcg/actuation 2 puff inhalation DIRECTED PRN 07/01/23 07/01/23 History aerosol inhaler Shortness Of Breath Or Wheezing betamethasone dipropionate 0.05 % 1 applic topical DIRECTED PRN 07/01/23 07/01/23 History topical ointment Skin Irritation fluticasone propionate 50 1 spray intranasal DAILY PRN 07/01/23 07/01/23 History mcg/actuation nasal Congestion spray,suspension insulin glargine 100 unit/mL (3 20 unit subcut QAM 07/01/23 07/01/23 History mL) subcutaneous pen levothyroxine 200 mcg tablet 200 mcg PO DAILYBB 07/01/23 07/01/23 History metformin 500 mg tablet,extended 1,000 mg PO BID 07/01/23 07/01/23 History release 24 hr Past Med/Surg History Medical History Nausea and vomiting Migraine Depression Endometriosis IBS (irritable bowel syndrome) Hypothyroidism Social History Smoking Status: Current every day smoker Tobacco Type: Cigarettes Cigarettes Per Day: 10 cigarettes (1/2 pack); Second Hand Exposure: Yes; Do You Dip or Chew Tobacco: No; Tobacco Cessation Education Requested by Patient: No Hx Alcohol Use: No Hx Substance Use: No Preferred Language: [place] Communication Ability: Effective Fuel Oil Clerk Required: No Beliefs That Will Affect Care: None Current Living Situation: Family Current Living Situation Comment: father staying w/ pt and grandson Other Information That Helps Us Care for You: No Feels Safe at Home: Yes Safety Concerns: Feels Safe At This Time Assistive Devices: None Review of Systems Review of Systems: All systems reviewed & are unremarkable except as noted in HPI & below Physical Exam Physical Exam: General- Not in distress. Head- atraumatic Eyes- PERRL. ENT- oropharynx clear Neck- supple, no JVD. Lungs- clear to auscultation no wheezing or crackles Heart- regular rhythm; no murmur, no gallop. Abdomen- sluggish bowel sounds, soft, diffuse tender no distension Extremities- no pretibial edema, no erythema Neuro- alert, oriented x 3; PERRL, no facial palsy; no dysarthria; moves extremities. Skin- warm & dry Results & Data Results & Data Vital Signs (Past 12 Hours) Vital Signs Temp Pulse Pulse Pulse Resp BP BP 07/01/23 19:27 87 20 144/81 H 07/01/23 19:01 94 H 07/01/23 18:00 93 H 16 133/90 07/01/23 16:09 108 H 14 133/81 07/01/23 16:09 07/01/23 13:49 36.6 C 125 H 16 146/89 H Pulse Ox O2 Del Method O2 Flow Rate 07/01/23 19:27 99 Room Air 07/01/23 19:01 07/01/23 18:00 96 Room Air 07/01/23 16:09 97 07/01/23 16:09 97 Room Air 0 07/01/23 13:49 96 Room Air Diagnostic Findings Laboratory Results WBC 9.35 K/ul (4.8-10.8) 07/01/23 15:37 RBC 5.09 M/uL (4.20-5.40) 07/01/23 15:37 Hgb 14.5 g/dl (12.0-16.0) 07/01/23 15:37 Hct 44.4 % (37.0-47.0) 07/01/23 15:37 MCV 87.2 fL (80.0-100.0) 07/01/23 15:37 MCH 28.5 pg (25.0-34.0) 07/01/23 15:37 MCHC 32.7 g/dL (32.0-36.0) 07/01/23 15:37 RDW Std Deviation 43.1 fL (36.4-46.3) 07/01/23 15: RDW Coeff of Adolfo 13.4 % (11.5-14.5) 07/01/23 15: Plt Count 290 K/uL (130-400) 07/01/23 15:37 MPV 9.1 fL (9.4-12.4) L 07/01/23 15:37 Immature Gran % (Auto) 0.3 % 07/01/23 15:37 Neut % (Auto) 68.7 % 07/01/23 15:37 Lymph % (Auto) 23.3 % 07/01/23 15:37 [place] % (Auto) 6.2 % 07/01/23 15:37 Eos % (Auto) 0.5 % 07/01/23 15:37 Baso % (Auto) 1.0 % 07/01/23 15:37 Neut # (Auto) 6.42 K/uL (1.40-6.50) 07/01/23 15:37 Lymph # (Auto) 2.18 K/uL (1.20-3.40) 07/01/23 15:37 [place] # (Auto) 0.58 K/uL (0.11-0.59) 07/01/23 15:37 Eos # (Auto) 0.05 K/uL (0.00-0.50) 07/01/23 15:37 Baso # (Auto) 0.09 K/uL (0.00-0.20) 07/01/23 15:37 Immature Gran # (Auto) 0.03 K/uL (0.01-0.20) 07/01/23 15:37 Sodium 140 mmol/L (136-145) 07/01/23 15:37 Potassium 3.9 mmol/L (3.5-5.1) 07/01/23 15:37 Chloride 105 mmol/L (98-107) 07/01/23 15:37 Carbon Dioxide 25 mmol/L (21-32) 07/01/23 15:37 Anion Gap 10 (3-11) 07/01/23 15:37 BUN 29 mg/dl (6-23) H 07/01/23 15:37 Creatinine 1.38 mg/dl (0.6-1.2) H 07/01/23 15:37 Est Cr Clr Drug Dosing 54.3 ml/min 07/01/23 15:37 Est GFR ( Amer) 50.8 ml/min 07/01/23 15:37 Est GFR (Non-Af Amer) 43.8 ml/min 07/01/23 15:37 BUN/Creatinine Ratio 21.0 (10-20) H 07/01/23 15:37 Glucose 152 mg/dl (70-99(Fasting)) H 07/01/23 15:37 Calcium 10.1 mg/dl (8.6-10.3) 07/01/23 15:37 Total Bilirubin 0.5 mg/dl (0.2-1.0) 07/01/23 15:37 AST 14 U/L (13-39) 07/01/23 15:37 ALT 21 U/L (7-52) 07/01/23 15:37 Alkaline Phosphatase 89 U/L (34-104) 07/01/23 15:37 Total Protein 8.0 gm/dl (6.0-8.3) 07/01/23 15:37 Albumin 4.8 gm/dl (3.4-5.0) 07/01/23 15:37 Globulin 3.2 gm/dl (2.5-4.0) 07/01/23 15:37 Albumin/Globulin Ratio 1.5 (0.9-2) 07/01/23 15:37 Lipase 48 U/L (11-82) 07/01/23 15:37 Urine Color Yellow 07/01/23 16:20 Urine Appearance Clear (Clear) 07/01/23 16:20 Urine pH 5.0 (4.5-7.5) 07/01/23 16:20 Ur Specific [place] 1.026 (1.000-1.030) 07/01/23 16:20 Urine Protein Trace (Negative) H 07/01/23 16:20 Urine Glucose (UA) Negative (Negative) 07/01/23 16:20 Urine Ketones Negative (Negative) 07/01/23 16:20 Urine Blood 1+ (Negative) H 07/01/23 16:20 Urine Nitrite Negative (Negative) 07/01/23 16:20 Urine Bilirubin Negative (Negative) 07/01/23 16:20 Urine Urobilinogen Negative (Negative) 07/01/23 16:20 Ur Leukocyte Esterase Negative (Negative) 07/01/23 16:20 Urine RBC 0-4 /hpf (0-4) 07/01/23 16:20 Urine WBC 0-5 /hpf (0-5) 07/01/23 16:20 Ur Epithelial Cells 0-5 /lpf (0-5) 07/01/23 16:20 Uric Acid Crystals Present (None Prsent) A 07/01/23 16:20 Urine Bacteria Negative (Negative) 07/01/23 16:20 Impressions Abdomen/Pelvis CT 07/01/23 17:50 Exam(s): CT ABDOMEN + PELVIS Without Contrast EXAM: CT Abdomen and Pelvis Without Intravenous Contrast CLINICAL HISTORY: Reason for exam: poss obstruc. TECHNIQUE: Axial computed tomography images of the abdomen and pelvis without intravenous contrast. CTDI is 26.72 mGy and DLP is 1303.93 mGy-cm. Automated exposure control was utilized for the study. A dose lowering technique was utilized adhering to the principles of ALARA. COMPARISON: CT abdomen/pelvis on 04/24/2023 FINDINGS: Lung bases: Unremarkable. No mass. No consolidation. ABDOMEN: Liver: Hepatic steatosis. Gallbladder and bile ducts: Unremarkable. No calcified stones. No ductal dilation. Pancreas: Unremarkable. No ductal dilation. Spleen: Unremarkable. No splenomegaly. Adrenals: Unremarkable. No mass. Kidneys and ureters: Unremarkable. No hydronephrosis or stone. Stomach and bowel: Evaluation of the stomach is limited by underdistention. No mucosal thickening. No bowel obstruction or inflammation. No small bowel obstruction. PELVIS: Appendix: Prior appendectomy. Bladder: Unremarkable. No stones. Reproductive: Prior hysterectomy. ABDOMEN and PELVIS: Intraperitoneal space: Unremarkable. No free air. No significant fluid collection. Bones/joints: Degenerative changes of the spine. No acute fracture. No dislocation. Soft tissues: Unremarkable. Vasculature: Unremarkable. No abdominal aortic aneurysm. Lymph nodes: Unremarkable. No enlarged lymph nodes. IMPRESSION: Hepatic steatosis. No acute abnormality in the abdomen and pelvis. Electronically signed by: Tyrone Rivero M.D. 07/01/23 19:31 PM ECG Additional Comments: ECG. Sinus tachycardia rate of 108. No significant change was found. (1) Abdominal pain Abdominal location: generalized Qualified Code(s): R10.84 - Generalized abdominal pain
[2023-07-01] MEDS ORDERED: DEXTROSE 50% 50 ML SYRINGE IV PRN (23:14)
[2023-07-01] MEDS ORDERED: CARBOHYDRATES FOR HYPOGLYCEMIA PO PRN (23:14)
[2023-07-01] MEDS ORDERED: BETAMETHASONE DIP AUG (DIPROLENE) 0.05% CR 15 GM TUBE EXT PRN (23:14)
[2023-07-01] MEDS ORDERED: GLUCAGON FOR INJ 1 MG VIAL SQ PRN (23:14)
[2023-07-01] MEDS ORDERED: ACETAMINOPHEN 325 MG TAB PO PRN (23:14)
[2023-07-01] MEDS ORDERED: GLUCOSE 40% GEL 15 GM TUBE PO PRN (23:14)
[2023-07-01] MEDS ORDERED: GLUCOSE 10 TAB/TUBE PO PRN (23:14)
[2023-07-01] MEDS ORDERED: ALBUTEROL HFA 8 GM INHALER INH PRN (23:14)
[2023-07-01] MEDS ORDERED: FLUTICASONE PROPIONATE NA SPR 16 GM BTL PRN (23:14)
[2023-07-01] MEDS ORDERED: DICYCLOMINE HCL 10 MG CAP PO PRN (23:14)
[2023-07-01] MEDS: ENOXAPARIN INJ 40 MG/0.4 ML SYR SQ SCH (23:37)
[2023-07-01] MEDS ORDERED: INSULIN ASPART PER UNIT CHARGE SC ONE (23:45)
[2023-07-01] MEDS: SODIUM CHLORIDE 0.9% 1,000 ML IV SCH (23:51)
[2023-07-02] MEDS: METOCLOPRAMIDE HCL INJ 5 MG/ML 2 ML VIAL IV PRN ×3 (01:58→19:32)
[2023-07-02] MEDS: HYDROmorphone INJ 0.5 MG/0.5 ML SYR IV PRN ×5 (02:45→20:37)
[2023-07-02] MEDS: PANTOprazole 40 MG TAB PO SCH (06:11)
[2023-07-02] MEDS: LEVOTHYROXINE SODIUM 200 MCG TABLET PO SCH (06:11)
[2023-07-02 06:41] LABS: Basophils # (auto) 0.06 K/uL (0.00-0.20); Basophils % (auto) 1.1 %; Eosinophils % (auto) 1.8 %; Hematocrit (blood only) 37.2 % (37.0-47.0); Immature Granulocytes # (auto) 0.01 K/uL (0.01-0.20); Immature Granulocytes % (auto) 0.2 %; Lymphocytes # (auto) 1.82 K/uL (1.20-3.40); Mean Corpuscular Hemoglobin 28.4 pg (25.0-34.0); Mean Corpuscular Hgb Conc 32.3 g/dL (32.0-36.0); Mean Corpuscular Volume 88.2 fL (80.0-100.0); Mean Platelet Volume 9.8 fL (9.4-12.4); Monocytes # (auto) 0.45 K/uL (0.11-0.59); Monocytes % (auto) 7.9 %; Neutrophils # (auto) 3.25 K/uL (1.40-6.50); Platelet Count 219 K/uL (130-400); RDW Coefficient of Variation 13.6 % (11.5-14.5); RDW Standard Deviation 44.1 fL (36.4-46.3); Red Blood Count 4.22 M/uL (4.20-5.40); White Blood Count 5.69 K/ul (4.8-10.8)
[2023-07-02 06:53] LABS: BUN Creatinine Ratio 23.2 (10-20); Calcium 7.9 mg/dl (8.6-10.3); Creatinine Clr Calc Pharmacy 79.4 ml/min; Est GFR (African American) 79.8 ml/min; Est GFR (Non-African American) 68.9 ml/min; Potassium 3.4 mmol/L (3.5-5.1)
[2023-07-02] MEDS ORDERED: INSULIN ASPART PER UNIT CHARGE SC SCH (07:30)
[2023-07-02 07:42] LABS: Estimated Average Glucose 214 mg/dl; Hemoglobin A1C 9.1 % (4.5-5.6)
[2023-07-02] MEDS: SODIUM CHLORIDE 0.9% 1,000 ML IV SCH ×2 (07:49→23:01)
[2023-07-02] MEDS ORDERED: Nursing to Pharmacy Communication SCH ×3 (08:15→20:00)
--- NOTE | 2023-07-02 08:36 | Gastrointestinal Consultation ---
Date of Consultation July 02, 2023 Assessment & Plan (1) Vomiting and diarrhea: 53 year old female with history of IBS, T2DM, hypothyroidism, gastroparesis, multiple abdominal surgery, previous SBO admitted w/ nausea/vomiting, diarrhea, CT without acute findings. NPO EGD Will need stool culture, c.diff Plan for OP colonoscopy and OP GES IV PPI BID Scheduled anti-emetics Smoking cessation We appreciate assistance in the management of any serological abnormality and corrections to include: hemoglobin >7, INR <2, platelets >50,000, potassium levels >3.5 but <5.3, and sodium levels within 5 points of the reference range prior to endoscopic evaluation. Supervising Physician Co-Signing Physician Notes Patient presents today for history of abdominal discomfort. She was seen by my partner several weeks ago during a recent admission but suggested an outpatient upper endoscopy and colonoscopy. Unfortunately it appears the patient has had some difficulty accomplished examinations. Given the history of persistent [place] and vomiting we will proceed with upper endoscopy today, if negative then the patient will need to be scheduled for an outpatient colonoscopy. I discussed risks and benefits of the procedures with the patient to include bleeding infection perforation pain and need for follow-up studies. I would also recommend a screening talk screen to screen for cannabis consumption. History of Present Illness Reason for Consultation: nausea, abd pain, diarrhea Requesting Physician: Thang Attending Physician: Mamadou Desir MD History of Present Illness 53 year old female with history of IBS, T2DM, hypothyroidism, gastroparesis, multiple abdominal surgery, previous SBO admitted w/ nausea/vomiting, diarrhea,- GI asked to evaluate. Pt was seen and evaluated, chart reviewed. She notes chronic intermittent GI symptoms since her bowel obstruction. Periods of bloating, pain, nausea/vomiting nad alternating bowel habits. Presently describes urgent diarrhea, numerous times daily. No report of black or bloody stools. Weight is stable. Our office has been trying to contact her via phone and letters in the mail to arrange out patient clinic appointments, EGD/Colonoscopy and GES. Unfortunately, she has not returned our contact methods. CTAP 2022: Hepatic steatosis. No acute abnormality in the abdomen and pelvis. EGD 2012: Normal esophagus. - A large amount of food (residue) in the stomach. EUS 2007: No endosonographic finding of chronic pancreatitis - No choledocholithiasis - Head of pancreas and tail not visualized. Allergies Allergy/AdvReac Type Severity Reaction Status Date / Time nabumetone Allergy Intermediate swelling Verified 07/01/23 18:24 NSAIDS (Non-Steroidal Allergy Intermediate SWELLING Verified 07/01/23 18:24 Anti-Inflamma acetaminophen AdvReac Intermediate VOMITING, Verified 07/01/23 18:24 RASH--RAISES LIVER ENZYMES Home Medications Medication Instructions Recorded Confirmed Type mupirocin 2 % topical ointment 1 applic topical BID PRN irritation 12/21/19 07/01/23 History blood sugar diagnostic (OneTouch #100 ea 12/01/22 Rx Verio test strips) omeprazole 40 mg capsule,delayed 40 mg PO DAILYBB 01/14/23 07/01/23 History release ondansetron 4 mg disintegrating 4 mg translingual DIRECTED PRN 04/24/23 07/01/23 History tablet NAUSEA/VOMITING blood sugar diagnostic (OneTouch #100 ea 04/29/23 Rx Verio test strips) dicyclomine 10 mg capsule 10 mg PO TID PRN abdominal pain 04/29/23 07/01/23 Rx #20 caps lancets 33 gauge (OneTouch Delica #100 ea 04/29/23 Rx Plus Lancet) pen needle, diabetic 32 gauge x #100 ea 04/29/23 Rx 5/32" (Pen Needle) albuterol sulfate 90 mcg/actuation 2 puff inhalation DIRECTED PRN 07/01/23 07/01/23 History aerosol inhaler Shortness Of Breath Or Wheezing betamethasone dipropionate 0.05 % 1 applic topical DIRECTED PRN 07/01/23 07/01/23 History topical ointment Skin Irritation fluticasone propionate 50 1 spray intranasal DAILY PRN 07/01/23 07/01/23 History mcg/actuation nasal Congestion spray,suspension insulin glargine 100 unit/mL (3 20 unit subcut QAM 07/01/23 07/01/23 History mL) subcutaneous pen levothyroxine 200 mcg tablet 200 mcg PO DAILYBB 07/01/23 07/01/23 History metformin 500 mg tablet,extended 1,000 mg PO BID 07/01/23 07/01/23 History release 24 hr Patient History Medical History Nausea and vomiting Migraine Depression Endometriosis IBS (irritable bowel syndrome) Hypothyroidism Social History Smoking Status: Current every day smoker Tobacco Type: Cigarettes Cigarettes Per Day: 10 cigarettes (1/2 pack); Second Hand Exposure: Yes; Do You Dip or Chew Tobacco: No; Hx Alcohol Use: No Hx Substance Use: No Preferred Language: [place] Communication Ability: Effective Upstairs Maid Required: No Beliefs That Will Affect Care: None Current Living Situation: Family Current Living Situation Comment: father staying w/ pt and grandson Feels Safe at Home: Yes Assistive Devices: None Review of Systems Review of Systems: All systems reviewed & are unremarkable except as noted in HPI & below Physical Exam Constitutional: WD/WN, vitals as above Respiratory: normal respiratory effort, lungs clear to auscultation Cardiovascular: Rate/Rhythm: regular rate Gastrointestinal (Abdomen): Inspection/Auscultation: normal bowel sounds +bloating Skin: no rashes, warm and dry Results & Data Vital Signs (Past 12 Hours) Vital Signs Temp Pulse Pulse Resp BP Pulse Ox O2 Del Method 07/02/23 07:24 36.5 C 73 14 116/75 96 Room Air 07/02/23 00:00 Room Air 07/02/23 00:00 36.7 C 95 H 20 140/82 96 Room Air 07/01/23 23:14 36.7 C 95 H 20 140/82 96 Room Air 07/01/23 21:25 105 H 12 144/109 H 96 Room Air Laboratory Results 07/02/23 07/02/23 07/01/23 Range/Units 07:36 05:45 23:27 WBC 5.69 (4.8-10.8) K/ul RBC 4.22 (4.20-5.40) M/uL Hgb 12.0 (12.0-16.0) g/dl Hct 37.2 (37.0-47.0) % MCV 88.2 (80.0-100.0) fL MCH 28.4 (25.0-34.0) pg MCHC 32.3 (32.0-36.0) g/dL RDW Std Deviation 44.1 (36.4-46.3) fL RDW Coeff of Adolfo 13.6 (11.5-14.5) % Plt Count 219 (130-400) K/uL MPV 9.8 (9.4-12.4) fL Immature Gran % (Auto) 0.2 % Neut % (Auto) 57.0 % Lymph % (Auto) 32.0 % [place] % (Auto) 7.9 % Eos % (Auto) 1.8 % Baso % (Auto) 1.1 % Neut # (Auto) 3.25 (1.40-6.50) K/uL Lymph # (Auto) 1.82 (1.20-3.40) K/uL [place] # (Auto) 0.45 (0.11-0.59) K/uL Eos # (Auto) 0.10 (0.00-0.50) K/uL Baso # (Auto) 0.06 (0.00-0.20) K/uL Immature Gran # (Auto) 0.01 (0.01-0.20) K/uL Sodium 139 (136-145) mmol/L Potassium 3.4 L (3.5-5.1) mmol/L Chloride 109 H (98-107) mmol/L Carbon Dioxide 24 (21-32) mmol/L Anion Gap 6 (3-11) BUN 22 (6-23) mg/dl Creatinine 0.95 D (0.6-1.2) mg/dl Est Cr Clr Drug Dosing 79.4 ml/min Est GFR ( Amer) 79.8 ml/min Est GFR (Non-Af Amer) 68.9 ml/min BUN/Creatinine Ratio 23.2 H (10-20) Glucose 160 H (70-99(Fasting)) mg/dl POC Glucose 109 H 220 H (70-99) mg/dl Estimat Average Glucose 214 mg/dl Hemoglobin A1c 9.1 H (4.5-5.6) % Calcium 7.9 L D (8.6-10.3) mg/dl Magnesium 1.0 L (1.7-2.4) mg/dl Total Bilirubin (0.2-1.0) mg/dl AST (13-39) U/L ALT (7-52) U/L Alkaline Phosphatase (34-104) U/L Total Protein (6.0-8.3) gm/dl Albumin (3.4-5.0) gm/dl Globulin (2.5-4.0) gm/dl Albumin/Globulin Ratio (0.9-2) Lipase (11-82) U/L Urine Color Urine Appearance (Clear) Urine pH (4.5-7.5) Ur Specific [place] (1.000-1.030) Urine Protein (Negative) Urine Glucose (UA) (Negative) Urine Ketones (Negative) Urine Blood (Negative) Urine Nitrite (Negative) Urine Bilirubin (Negative) Urine Urobilinogen (Negative) Ur Leukocyte Esterase (Negative) Urine RBC (0-4) /hpf Urine WBC (0-5) /hpf Ur Epithelial Cells (0-5) /lpf Uric Acid Crystals (None Prsent) Urine Bacteria (Negative) 07/01/23 07/01/23 Range/Units 16:20 15:37 WBC 9.35 (4.8-10.8) K/ul RBC 5.09 (4.20-5.40) M/uL Hgb 14.5 (12.0-16.0) g/dl Hct 44.4 (37.0-47.0) % MCV 87.2 (80.0-100.0) fL MCH 28.5 (25.0-34.0) pg MCHC 32.7 (32.0-36.0) g/dL RDW Std Deviation 43.1 (36.4-46.3) fL RDW Coeff of Adolfo 13.4 (11.5-14.5) % Plt Count 290 (130-400) K/uL MPV 9.1 L (9.4-12.4) fL Immature Gran % (Auto) 0.3 % Neut % (Auto) 68.7 % Lymph % (Auto) 23.3 % [place] % (Auto) 6.2 % Eos % (Auto) 0.5 % Baso % (Auto) 1.0 % Neut # (Auto) 6.42 (1.40-6.50) K/uL Lymph # (Auto) 2.18 (1.20-3.40) K/uL [place] # (Auto) 0.58 (0.11-0.59) K/uL Eos # (Auto) 0.05 (0.00-0.50) K/uL Baso # (Auto) 0.09 (0.00-0.20) K/uL Immature Gran # (Auto) 0.03 (0.01-0.20) K/uL Sodium 140 (136-145) mmol/L Potassium 3.9 (3.5-5.1) mmol/L Chloride 105 (98-107) mmol/L Carbon Dioxide 25 (21-32) mmol/L Anion Gap 10 (3-11) BUN 29 H (6-23) mg/dl Creatinine 1.38 H (0.6-1.2) mg/dl Est Cr Clr Drug Dosing 54.3 ml/min Est GFR ( Amer) 50.8 ml/min Est GFR (Non-Af Amer) 43.8 ml/min BUN/Creatinine Ratio 21.0 H (10-20) Glucose 152 H (70-99(Fasting)) mg/dl POC Glucose (70-99) mg/dl Estimat Average Glucose mg/dl Hemoglobin A1c (4.5-5.6) % Calcium 10.1 (8.6-10.3) mg/dl Magnesium (1.7-2.4) mg/dl Total Bilirubin 0.5 (0.2-1.0) mg/dl AST 14 (13-39) U/L ALT 21 (7-52) U/L Alkaline Phosphatase 89 (34-104) U/L Total Protein 8.0 (6.0-8.3) gm/dl Albumin 4.8 (3.4-5.0) gm/dl Globulin 3.2 (2.5-4.0) gm/dl Albumin/Globulin Ratio 1.5 (0.9-2) Lipase 48 (11-82) U/L Urine Color Yellow Urine Appearance Clear (Clear) Urine pH 5.0 (4.5-7.5) Ur Specific [place] 1.026 (1.000-1.030) Urine Protein Trace H (Negative) Urine Glucose (UA) Negative (Negative) Urine Ketones Negative (Negative) Urine Blood 1+ H (Negative) Urine Nitrite Negative (Negative) Urine Bilirubin Negative (Negative) Urine Urobilinogen Negative (Negative) Ur Leukocyte Esterase Negative (Negative) Urine RBC 0-4 (0-4) /hpf Urine WBC 0-5 (0-5) /hpf Ur Epithelial Cells 0-5 (0-5) /lpf Uric Acid Crystals Present A (None Prsent) Urine Bacteria Negative (Negative)
[2023-07-02] MEDS: LANTUS PER UNIT CHARGE SC SCH (08:46)
[2023-07-02] MEDS ORDERED: INFLUENZA VIRUS QUADRIVALENT VACCINE (IIV4) 0.5 ML SYR IM ONE (09:00)
[2023-07-02 09:46] LABS: Amphetamines+Metham, Urine Pos (Neg); Barbiturates, Urine Neg (Neg); Benzodiazepine, Urine Neg (Neg); Cocaine, Urine Neg (Neg); MDMA (Ecstacy), Urine Neg (Neg); Methadone, Urine Neg (Neg); Opiate, Urine Pos (Neg); Phencyclidine, Urine Neg (Neg)
--- NOTE | 2023-07-02 11:04 | Anesthesiology Consultation ---
Date of Service July 02, 2023 Assessment & Plan Chart Review Chart Review: Acceptable Risk for Surgery and Patient NOT seen in Pre Admission Testing Consults Requested none ASA ASA3 Proposed Anesthesia Anesthesia Type: MAC Risk / Benefits Reviewed With: PT / POA / Parent / Guardian, Accepts Plan and Informed Consent Obtained Additional Comments: Patient npo appropriate. Denies vomiting since yesterday. Does report does nausea. History Surgery Operation Date: 07/02/23 16:45 Proposed Procedures p Esophagogastroduodenoscopy Dr Duran Garzon, Height/Weight Height: 5 ft 7 in Weight: 89.1 kg Allergies Allergy/AdvReac Type Severity Reaction Status Date / Time nabumetone Allergy Intermediate swelling Verified 07/01/23 18:24 NSAIDS (Non-Steroidal Allergy Intermediate SWELLING Verified 07/01/23 18:24 Anti-Inflamma acetaminophen AdvReac Intermediate VOMITING, Verified 07/01/23 18:24 RASH--RAISES LIVER ENZYMES Medications Home Medications Medication Instructions Recorded Confirmed Last Taken mupirocin 2 % topical ointment 1 applic topical BID PRN irritation 12/21/19 07/01/23 01/13/23 blood sugar diagnostic (OneTouch #100 ea 12/01/22 Unknown Verio test strips) omeprazole 40 mg capsule,delayed 40 mg PO DAILYBB 01/14/23 07/01/23 07/01/23 release ondansetron 4 mg disintegrating 4 mg translingual DIRECTED PRN 04/24/23 07/01/23 Unknown tablet NAUSEA/VOMITING blood sugar diagnostic (OneTouch #100 ea 04/29/23 Unknown Verio test strips) dicyclomine 10 mg capsule 10 mg PO TID PRN abdominal pain 04/29/23 07/01/23 Unknown #20 caps lancets 33 gauge (OneTouch Delica #100 ea 04/29/23 Unknown Plus Lancet) pen needle, diabetic 32 gauge x #100 ea 04/29/23 Unknown 5/32" (Pen Needle) albuterol sulfate 90 mcg/actuation 2 puff inhalation DIRECTED PRN 07/01/23 07/01/23 Unknown aerosol inhaler Shortness Of Breath Or Wheezing betamethasone dipropionate 0.05 % 1 applic topical DIRECTED PRN 07/01/23 07/01/23 Unknown topical ointment Skin Irritation fluticasone propionate 50 1 spray intranasal DAILY PRN 07/01/23 07/01/23 Unknown mcg/actuation nasal Congestion spray,suspension insulin glargine 100 unit/mL (3 20 unit subcut QAM 07/01/23 07/01/23 07/01/23 mL) subcutaneous pen levothyroxine 200 mcg tablet 200 mcg PO DAILYBB 07/01/23 07/01/23 07/01/23 metformin 500 mg tablet,extended 1,000 mg PO BID 07/01/23 07/01/23 07/01/23 08:00 release 24 hr Active Medications Generic Name Dose Route Start Last Admin Trade Name Freq PRN Reason Stop Dose Admin Dicyclomine HCl 10 mg 07/01/23 23:14 07/02/23 06:11 Dicyclomine Hcl 10 Mg Cap PO 07/31/23 23:13 10 mg TID PRN Administration abdominal pain Enoxaparin Sodium 40 mg 07/01/23 23:30 07/01/23 23:37 Enoxaparin Inj 40 Mg/0.4 Ml Syr SQ 07/31/23 23:29 40 mg HS ANTHONY Administration Hydromorphone HCl 0.5 mg 07/01/23 23:14 07/02/23 10:46 Hydromorphone Inj 0.5 Mg/0.5 Ml Syr IV 07/15/23 23:13 0.5 mg Q4H PRN Administration Severe Pain (Scale 7, 8, 9,10) Sodium Chloride 1,000 mls @ 125 mls/hr 07/01/23 23:14 07/02/23 07:49 Nss IV 07/02/23 23:13 125 mls/hr .Q8H ANTHONY Administration Insulin Glargine 20 units 07/02/23 09:00 07/02/23 08:46 Lantus Per Unit Charge SC 08/01/23 08:59 20 units QAM ANTHONY Administration Levothyroxine Sodium 200 mcg 07/02/23 06:30 07/02/23 06:11 Levothyroxine Sodium 200 Mcg Tablet PO 08/01/23 06:29 200 mcg DAILYBB ANTHONY Administration Metoclopramide HCl 10 mg 07/01/23 23:14 07/02/23 01:58 Metoclopramide Hcl Inj 5 Mg/Ml 2 Ml Vial IV 07/31/23 23:13 10 mg Q6H PRN Administration Nausea Pantoprazole Sodium 40 mg 07/02/23 06:30 07/02/23 06:11 Pantoprazole 40 Mg Tab PO 08/01/23 06:29 40 mg DAILYBB ANTHONY Administration Past Medical History Medical History Nausea and vomiting Migraine Depression Endometriosis IBS (irritable bowel syndrome) Hypothyroidism Exercise / Class Metabolic Activity II 4-5 Yardwork/Stairs/Walk up hill Past Anesthesia History No Hx of Anesthesia Complications and No Family Hx of Anesthesia Complications Social History Smoking Status: Current every day smoker tobacco type: cigarettes Smoking cigarettes per day: 10 cigarettes (1/2 pack) Do You Dip or Chew Tobacco: No Hx Alcohol Use: No Hx Substance Use: No substance use type: does not use Review of Systems ROS Unobtainable: All systems reviewed & are unremarkable except as noted in HPI & below Physical Exam Vital Signs Last Vital Signs Temp 36.4 C L 07/02/23 10:54 Pulse 79 07/02/23 10:54 Resp 18 07/02/23 10:54 BP 101/65 07/02/23 10:54 Pulse Ox 98 07/02/23 10:54 O2 Del Method Room Air 07/02/23 10:54 O2 Flow Rate 0 07/01/23 16:09 Constitutional no acute distress ENMT Mouth: no TMJ abnormality Thyromental Distance: > or= 3.5 Finger Breadths Mallampati Class: I Neck normal visual inspection and trachea midline; neck extension not limited Respiratory normal respiratory effort Auscultation: lungs clear to auscultation bilaterally Cardiovascular Rate/Rhythm: regular rate and regular rhythm Heart Sounds: no murmur Musculoskeletal Spine: normal cervical ROM Extremities: full ROM of extremities Neurologic moves all extremities Psychiatric Orientation: alert and oriented x 3 Testing Laboratory Results 07/02/23 05:45 07/02/23 05:45 Hemoglobin A1c 9.1 % (4.5-5.6) H 07/02/23 05:45 Urine Color Yellow 07/01/23 16:20 Urine Appearance Clear (Clear) 07/01/23 16:20 Urine pH 5.0 (4.5-7.5) 07/01/23 16:20 Ur Specific [place] 1.026 (1.000-1.030) 07/01/23 16:20 Urine Protein Trace (Negative) H 07/01/23 16:20 Urine Glucose (UA) Negative (Negative) 07/01/23 16:20 Urine Ketones Negative (Negative) 07/01/23 16:20 Urine Nitrite Negative (Negative) 07/01/23 16:20 Ur Leukocyte Esterase Negative (Negative) 07/01/23 16:20 Urine RBC 0-4 /hpf (0-4) 07/01/23 16:20 Urine WBC 0-5 /hpf (0-5) 07/01/23 16:20 Ur Epithelial Cells 0-5 /lpf (0-5) 07/01/23 16:20 07/02/23 07/01/23 07:36 23:27 POC Glucose 109 H 220 H
[2023-07-02] MEDS ORDERED: KETAMINE HCL 10MG/ML SYR ONE (11:21)
--- NOTE | 2023-07-02 11:34 | Communication Note ---
Date of Service: July 02, 2023 Patient underwent an upper endoscopy today, overall the esophagus stomach and duodenum appeared normal. We did obtain random biopsies from the duodenum and stomach. With regard to the patient's other symptoms of diarrhea would recommend an outpatient colonoscopy as previously suggested during a prior admission. No obvious cause of symptoms were seen today. Symptoms may be related to the patient's history of diabetes or perhaps one of her medications such as metformin. I would suggest a trial off of metformin to see if the symptoms improve. Recommendations Advance diet as tolerated Outpatient colonoscopy to be arranged Please call with any questions or concerns GI to sign off
--- NOTE | 2023-07-02 11:37 | GI REPORT ---
Patient Name: Daiana Bhandari Procedure Date: 07/02/2023 11:17 AM Date of : 1970 Admit Type: Inpatient Age: 53 Gender: Female Attending MD: Matilde Garzon DO, Procedure: Upper GI endoscopy Providers: Matilde Garzon DO Referring MD: Mamadou Desir Md Indications: Nausea with vomiting Medicines: Monitored Anesthesia Care Complications: No immediate complications. Estimated blood loss: Minimal. Estimated Blood Loss: Estimated blood loss was minimal. Procedure: Pre-Anesthesia Assessment: - Prior to the procedure, a History and Physical was performed, and patient medications, allergies and sensitivities were reviewed. The patient's tolerance of previous anesthesia was reviewed. - The risks and benefits of the procedure and the sedation options and risks were discussed with the patient. All questions were answered and informed consent was obtained. - Patient identification and proposed procedure were verified prior to the procedure by the physician, the nurse and the craft demonstrator. The procedure was verified in the procedure room. - Pre-procedure physical examination revealed no contraindications to sedation. - ASA Grade Assessment: III - A patient with severe systemic disease. - After reviewing the risks and benefits, the patient was deemed in satisfactory condition to undergo the procedure. - The anesthesia plan was to use monitored anesthesia care (MAC). - Immediately prior to administration of medications, the patient was re-assessed for adequacy to receive sedatives. - The heart rate, respiratory rate, oxygen saturations, blood pressure, adequacy of pulmonary ventilation, and response to care were monitored throughout the procedure. - The physical status of the patient was re-assessed after the procedure. After obtaining informed consent, the endoscope was passed under direct vision. Throughout the procedure, the patient's blood pressure, pulse, and oxygen saturations were monitored continuously. The Endoscope was introduced through the mouth, and advanced to the third part of duodenum. The upper GI endoscopy was accomplished without difficulty. The patient tolerated the procedure well. Findings: The examined esophagus was normal. The Z-line was regular and was found 36 cm from the incisors. The entire examined stomach was normal. Biopsies were taken with a cold forceps for histology. The pathology specimen was placed into Bottle B. Estimated blood loss was minimal. The examined duodenum was normal. Biopsies were taken with a cold forceps for histology. The pathology specimen was placed into Bottle A. Estimated blood loss was minimal. Impression: - Normal esophagus. - Z-line regular, 36 cm from the incisors. - Normal stomach. Biopsied. - Normal examined duodenum. Biopsied. Recommendation: - [facility]. - Low residue diet. - Perhaps symptoms are medication related, consider discontinuation metformin - outpatient colonoscopy to be scheduled - Consider referring the patient for gastric emptying study Matiled Garzon D.O. Matilde Garzon, 07/02/2023 11:37:16 AM This report has been signed electronically. Note Initiated On: 07/02/2023 11:17 AM Number of Addenda: 0 I attest to the content of the Intraoperative Record and orders documented therein, exceptions below {[id number]}
[2023-07-02] MEDS ORDERED: LIDOCAINE 2% 2 ML VIAL/AMP(20MG/ML) INFIL ONE (11:41)
[2023-07-02] MEDS ORDERED: PROPOFOL IV EMULSION 10 MG/ML 20 ML VIAL IV ONE (11:41)
[2023-07-02] MEDS: MAGNESIUM SULFATE / D5W 1 GM/100 ML BAG IV SCH ×3 (12:22→16:46)
[2023-07-02] MEDS: INSULIN ASPART PER UNIT CHARGE SC SCH ×3 (12:33→20:32)
[2023-07-02] MEDS: POTASSIUM CHLORIDE / WTR 10 MEQ/100 ML PLCT IV SCH ×2 (13:06→14:54)
--- NOTE | 2023-07-02 13:19 | Anesthesiology Progress Note ---
Date of Service July 02, 2023 Anesthesia Post Procedure Vital Signs Vital Signs: Temp Pulse Pulse Pulse Resp BP BP 07/02/23 12:59 36.7 C 70 16 07/02/23 12:04 65 18 07/02/23 11:50 68 16 07/02/23 11:35 81 16 07/02/23 11:01 35.9 C L 74 16 07/02/23 10:54 36.4 C L 79 18 101/65 07/02/23 07:24 36.5 C 73 14 116/75 07/02/23 00:00 07/02/23 00:00 36.7 C 95 H 20 140/82 07/01/23 23:14 36.7 C 95 H 20 140/82 07/01/23 21:25 105 H 12 144/109 H 07/01/23 19:27 87 20 144/81 H 07/01/23 19:01 94 H 07/01/23 18:00 93 H 16 133/90 07/01/23 16:09 108 H 14 133/81 07/01/23 16:09 07/01/23 13:49 36.6 C 125 H 16 146/89 H BP Pulse Ox O2 Del Method O2 Flow Rate 07/02/23 12:59 114/77 96 Room Air 07/02/23 12:04 128/72 95 Room Air 07/02/23 11:50 118/74 97 Room Air 07/02/23 11:35 126/77 98 Room Air 07/02/23 11:01 111/75 99 Room Air 07/02/23 10:54 98 Room Air 07/02/23 07:24 96 Room Air 07/02/23 00:00 Room Air 07/02/23 00:00 96 Room Air 07/01/23 23:14 96 Room Air 07/01/23 21:25 96 Room Air 07/01/23 19:27 99 Room Air 07/01/23 19:01 07/01/23 18:00 96 Room Air 07/01/23 16:09 97 07/01/23 16:09 97 Room Air 0 07/01/23 13:49 96 Room Air Pain Intensity Groin: Pain Intensity: 8 Right Abdomen: Pain Intensity: 7 Transfer of Care Handoff Completed per policy Notes Mental Status: alert / awake / arousable Patient Amnestic to Procedure: Yes Nausea / Vomiting: adequately controlled Pain: adequately controlled Airway Patency, RR, SpO2: stable & adequate BP & HR: stable & adequate Hydration State: stable & adequate Anesthetic Complications: no major complications apparent and Pt Satisfied with anesthetic care
--- NOTE | 2023-07-02 16:10 | Hospitalist Progress Note ---
Date of Service July 02, 2023 Assessment & Plan (1) Abdominal pain: Plan: 53-year-old female with past medical history significant for type 2 diabetes, hypothyroidism, chronic rhinitis, COPD, irritable bowel syndrome, migraine, presents with ongoing nausea ,vomiting and abdominal pain. Abdominal pain DD: Gastroparesis Nausea and vomiting, Diarrhea H/O partial small bowel obstruction --CT ABD: Hepatic steatosis. No acute abnormality in the abdomen and pelvis. --S/P EGD:Normal esophagus. Z-line regular, 36 cm from the incisors. Normal stomach. Biopsied. Normal examined duodenum. Biopsied. --Normal Lipase -- Advance to low fiber diet as tolerated Needs outpatient colonoscopy Appreciate GI input Minimize IV narcotics use as able Continue PPI Check stool studies if recurrence of diarrhea Acute kidney injury--POA Resolved Received IV fluids Monitor renal function Avoid nephrotoxic agents as able Hypomagnesemia Hypokalemia Replete electrolytes as needed Monitor DM II HbA1C:9.1 Continue insulin per protocol Monitor BGs Hypothyroidism Continue levothyroxine H/O COPD Stable Continue home inhalers DVT Px: Lovenox SQ Code Status Full code Admission and Anticipated Discharge Date Admission Date: July 01, 2023 Subjective Patient is seen and examined at bedside States having nausea associated with abdominal cramps No diarrhea today Denies any chest pain, dyspnea Had EGD earlier today No other complaints Review of Systems Review of Systems: All systems reviewed & are unremarkable except as noted in Subjective Physical Exam Physical Exam: Physical Exam: Vitals signs as noted above General Appearance:Moderately built and nourished, no apparent distress Head: normocephalic, Atraumatic Eyes: normal inspection, EOMI Neck: supple, Trachea midline Respiratory/Chest: Normal breath sounds, CTA, No accessory muscle use Cardiovascular: S1, S2, No murmur Abdomen/GI:Soft, mild tender, Bowel sounds present Extremities/Musculoskeletal:normal inspection, no edema Neurologic/Psych:AAOX3, grossly no focal neurological deficits Skin: normal color, warm Results & Data Results & Data Vital Signs (Past 12 Hours) Vital Signs Temp Pulse Resp BP BP Pulse Ox O2 Del Method 07/02/23 14:37 36.6 C 76 16 116/78 95 Room Air 07/02/23 12:59 36.7 C 70 16 114/77 96 Room Air 07/02/23 12:04 65 18 128/72 95 Room Air 07/02/23 11:50 68 16 118/74 97 Room Air 07/02/23 11:35 81 16 126/77 98 Room Air 07/02/23 11:01 35.9 C L 74 16 111/75 99 Room Air 07/02/23 10:54 36.4 C L 79 18 101/65 98 Room Air 07/02/23 07:24 36.5 C 73 14 116/75 96 Room Air Laboratory Results Short CBC 07/02/23 Range/Units 05:45 WBC 5.69 (4.8-10.8) K/ul Hgb 12.0 (12.0-16.0) g/dl Hct 37.2 (37.0-47.0) % Plt Count 219 (130-400) K/uL BMP 07/01/23 07/02/23 15:37 05:45 Sodium 140 139 Potassium 3.9 3.4 L Chloride 105 109 H Carbon Dioxide 25 24 BUN 29 H 22 Creatinine 1.38 H 0.95 D Glucose 152 H 160 H Calcium 10.1 7.9 L D Liver Function 07/01/23 Range/Units 15:37 Total Bilirubin 0.5 (0.2-1.0) mg/dl AST 14 (13-39) U/L ALT 21 (7-52) U/L Alkaline Phosphatase 89 (34-104) U/L Albumin 4.8 (3.4-5.0) gm/dl Urine 07/01/23 Range/Units 16:20 Urine Color Yellow Urine Appearance Clear (Clear) Urine pH 5.0 (4.5-7.5) Ur Specific [place] 1.026 (1.000-1.030) Urine Protein Trace H (Negative) Urine Glucose (UA) Negative (Negative) (1) Abdominal pain Abdominal location: generalized Qualified Code(s): R10.84 - Generalized abdominal pain
[2023-07-02] MEDS: ENOXAPARIN INJ 40 MG/0.4 ML SYR SQ SCH (20:37)
[2023-07-03] MEDS: HYDROmorphone INJ 0.5 MG/0.5 ML SYR IV PRN ×5 (01:30→21:37)
[2023-07-03] MEDS: PANTOprazole 40 MG TAB PO SCH (05:33)
[2023-07-03] MEDS: LEVOTHYROXINE SODIUM 200 MCG TABLET PO SCH (05:33)
[2023-07-03 08:18] LABS: Hematocrit (blood only) 36.3 % (37.0-47.0); Hemoglobin 12.2 g/dl (12.0-16.0); Mean Corpuscular Hemoglobin 28.7 pg (25.0-34.0); Mean Corpuscular Hgb Conc 33.6 g/dL (32.0-36.0); Mean Corpuscular Volume 85.4 fL (80.0-100.0); Mean Platelet Volume 9.3 fL (9.4-12.4); Platelet Count 204 K/uL (130-400); RDW Coefficient of Variation 13.4 % (11.5-14.5); RDW Standard Deviation 41.7 fL (36.4-46.3); Red Blood Count 4.25 M/uL (4.20-5.40); White Blood Count 5.19 K/ul (4.8-10.8)
[2023-07-03] MEDS: INSULIN ASPART PER UNIT CHARGE SC SCH ×4 (08:23→21:25)
[2023-07-03] MEDS: LANTUS PER UNIT CHARGE SC SCH (08:26)
[2023-07-03 08:40] LABS: BUN Creatinine Ratio 10.8 (10-20); Calcium 7.6 mg/dl (8.6-10.3); Creatinine Clr Calc Pharmacy 81.1 ml/min; Est GFR (African American) 81.9 ml/min; Est GFR (Non-African American) 70.7 ml/min; Magnesium 1.5 mg/dl (1.7-2.4); Potassium 3.7 mmol/L (3.5-5.1)
[2023-07-03] MEDS: MAGNESIUM SULFATE / D5W 1 GM/100 ML BAG IV SCH ×2 (10:04→12:09)
--- NOTE | 2023-07-03 15:12 | XRay Report ---
KUB HISTORY: Generalized abdominal pain. COMPARISON: Abdomen and pelvis CT 07/01/2023. FINDINGS: The bowel gas pattern is unremarkable. There are no dilated loops of small bowel to suggest an obstruction. No renal calculi. No ureteral calculi. Calcifications in the deep pelvis likely rep resent phleboliths. These remain unchanged. Prior appendectomy. Prior cholecystectomy. The visualized lung bases are clear. No pneumoperitoneum or pneumatosis. IMPRESSION: Nonobstructive bowel gas pattern. ACT 112: Negative or not required by law. Electronically signed by: Stephen Sanchez M.D. 07/03/2023 3:11 PM
--- NOTE | 2023-07-03 16:12 | Electrocardiogram Report ---
Test Reason : Blood Pressure : / mmHG Vent. Rate : 108 BPM Atrial Rate : 108 BPM P-R Int : 128 ms QRS Dur : 070 ms QT Int : 354 ms P-R-T Axes : 058 051 055 degrees QTc Int : 474 ms Sinus tachycardia Otherwise normal ECG When compared with ECG of 24-APR-2023 13:53, No significant change was found Confirmed by Lars Barajas ([id number]) on 07/03/2023 4:12:11 PM Referred By: REFERRED SELF Confirmed By:Lars Barajas
--- NOTE | 2023-07-03 17:47 | Hospitalist Progress Note ---
Date of Service July 03, 2023 Assessment & Plan (1) Abdominal pain: Plan: 53-year-old female with past medical history significant for type 2 diabetes, hypothyroidism, chronic rhinitis, COPD, irritable bowel syndrome, migraine, presents with ongoing nausea ,vomiting and abdominal pain. Abdominal pain DD: Gastroparesis Nausea and vomiting, Diarrhea H/O partial small bowel obstruction --CT ABD: Hepatic steatosis. No acute abnormality in the abdomen and pelvis. --S/P EGD:Normal esophagus. Z-line regular, 36 cm from the incisors. Normal stomach. Biopsied. Normal examined duodenum. Biopsied. --Normal Lipase Needs outpatient colonoscopy and gastric emptying study Appreciate GI input Minimize IV narcotics use as able Continue PPI Check stool studies if recurrence of diarrhea Advance to low fiber diet today KUB today showed nonobstructive bowel gas pattern Acute kidney injury--POA Resolved Received IV fluids Monitor renal function Avoid nephrotoxic agents as able Hypomagnesemia Hypokalemia Replete electrolytes as needed Monitor DM II HbA1C:9.1 Continue insulin per protocol Monitor BGs Hypothyroidism Continue levothyroxine H/O COPD Stable Continue home inhalers DVT Px: Lovenox SQ Code Status Full code Admission and Anticipated Discharge Date Admission Date: July 01, 2023 Subjective Patient is seen and examined at bedside Reports nausea but no vomiting Abdominal pain slightly better today Tolerating clear liquid diet KUB showed nonobstructive bowel pattern today Denies any chest pain, dyspnea Review of Systems Review of Systems: All systems reviewed & are unremarkable except as noted in Subjective Physical Exam Physical Exam: Physical Exam: Vitals signs as noted above General Appearance:Moderately built and nourished, no apparent distress Head: normocephalic, Atraumatic Eyes: normal inspection, EOMI Neck: supple, Trachea midline Respiratory/Chest: Normal breath sounds, CTA, No accessory muscle use Cardiovascular: S1, S2, No murmur Abdomen/GI:Soft, mild tender, Bowel sounds present Extremities/Musculoskeletal:normal inspection, no edema Neurologic/Psych:AAOX3, grossly no focal neurological deficits Skin: normal color, warm Results & Data Results & Data Vital Signs (Past 12 Hours) Vital Signs Temp Pulse Resp BP Pulse Ox O2 Del Method 07/03/23 15:31 36.8 C 72 16 142/77 H 95 Room Air 07/03/23 07:48 36.8 C 86 15 118/81 94 Room Air Laboratory Results Short CBC 07/03/23 Range/Units 08:00 WBC 5.19 (4.8-10.8) K/ul Hgb 12.2 (12.0-16.0) g/dl Hct 36.3 L (37.0-47.0) % Plt Count 204 (130-400) K/uL BMP 07/03/23 08:00 Sodium 140 Potassium 3.7 Chloride 111 H Carbon Dioxide 25 BUN 10 Creatinine 0.93 Glucose 122 H Calcium 7.6 L (1) Abdominal pain Abdominal location: generalized Qualified Code(s): R10.84 - Generalized abdominal pain
--- OUTSIDE RECORDS SUMMARY | 2023-07-03 18:14 | External Medical Summary | Summary of Care ---
Author Name Unknown Organization [facility] Address [address] [place] [address] Phone [phone] Care Team Providers Care Extrusion Process Operator Name Role Phone Timoteo Muniz MD Primary Care Provider [phone] Reason for Referral * Evaluate & Treat - Unlimited Visits (Within 10 days (routine)) - Pending Review Specialty Diagnoses / Procedures Referred By Contac t Referred To Contact Pharmacist / Pharmacy Diagnoses DM type 2 nursing care encounter (HCC) Tiago Marx MD [address] [facility] [place] [address] Referral ID Status Reason Start Date Expiration Date Visits Requested Visits Authorized [id number] Pending Review Specialty Services Required 06/17/2023 99 99 Question Answer Referral Priority Within 10 days (routine) Where should this appointment be scheduled? [facility] Department: Primary Care Reason for Referral: DM Target A1c: < 7 Comments Pharmacist Medication Therapy Management: Minimum frequency patient should be seen in person for medication management: as appropriate per clinical condition and patient status By my signature, I understand that my patient Daiana Bhandari will have her medication therapy managed by the [facility] ([facility]) per established policies, procedures, and protocols. I also certify that this referral may serve as an initiation of service for the management of drug therapy in the above noted patient. [facility] providers will be responsible for scheduling patient visits, obtaining appropriate laboratory studies, and adjusting medication management therapy per patient's need, in addition to those roles spelled out in the clinic policy, procedures, and drug management protocols. I understand that the service provided by the [facility] is voluntary and have informed patient that they can refuse the service at their discretion. I am aware that the [facility] will provide me with a copy of the patient encounter via my [employer]. I authorize the [facility] to carry out these activities on my behalf. I consider this program to be a necessary part of the patient's medical care. Tiago Marx MD Reason for Visit * Reason Comments Acute Diabetic care; would like some refills of her scripts Encounter Details Date Type Department Care Team (Late st Contact Info) Description 06/17/2023 1:20 PM EDT Office Visit [facility] [address] [place] [address] Tiago Marx MD [address] [place] [address] DM type 2 nursing care encounter ([facility])*; Type 2 diabetes mellitus with hemoglobin A1c goal of less than 7.0% ([facility]); Abdominal pain, right lower quadrant; Other specified hypothyroidism; Foreign body in left foot, initial encounter; Peripheral polyneuropathy; Chronic obstructive pulmonary disease, unspecified COPD type ([facility]); [place] Allergies Active Allergy Reactions Criticality Noted Date Comments Acetaminophen Liver complications (Please comment) High 06/27/2011 Nsaids Edema face/lips/tongue Medium 02/16/2006 documented as of this encounter (statuses as of 06/19/2023) Medications Medication Sig Dispensed Refills Start Date End Date Status IMITREX STATDOSE REFILL 6 MG/0.5ML SUBQ SOLNIndications:Arturo serafin 0.5 ML 1 TIME ONLY 1 Syringe 5 11/10/2012 Active Additional Information Patient not taking.Reported on 12/03/2022 aspirin enteric coated 81 MG TBEC Take 1 Tablet by mouth in the morning. 0 Active clotrimazole (LOTRIMIN) 1 % creamIndications:Ye ast infection Apply topically to affected area 2 times a day. To affacted area for two weeks. 24 g 1 08/05/2017 Active Additional Information Patient not taking.Reported on 06/17/2023 Blood Glucose Monitoring Suppl (EpiVaxUCH ULTRA SYSTEM) w/Device KITIndications:Elev ated glucose Use as directed 4 times a day as needed (fluctuating sugar). Use up to four times a day as directed 1 Kit 0 08/05/2017 Active Conferize ULTRASOFT LANCETS MISCIndications:Maliha vated glucose Use as directed 4 times a day as needed (fluctuating sugar). Use up to four times a day as directed 1 Box Dosing Unit 11 08/05/2017 Active EpiVaxUCH ULTRA BLUE STRPIndications:Maliha vated glucose USE FOUR TIMES A DAY TO TEST SUGAR NEEDED 100 Strip 5 12/24/2018 Active Spacer/Aero-Holding Chambers (OPTICHAMBER ADVANTAGE) MISCIndications:Bro nchitis, complicated,Tobacco use disorder,Wheeze use with MDI as directed 1 Each 0 12/29/2018 Active albuterol-ipratropi um (DUONEB) 2.5-0.5 MG/3ML nebulizer solutionIndications :Bronchitis, complicated,Tobacco use disorder,Wheeze Inhale 3 mL via nebulizer 4 times a day. 120 Vial 5 12/29/2018 Active FLOVENT HFA 110 MCG/ACT inhalerIndications: Bronchitis, complicated,Tobacco use disorder,Wheeze INHALE 2 PUFFS BY MOUTH 2 TIMES A DAY 36 g 3 02/08/2020 Active Additional Information Patient not taking.Reported on 12/03/2022 XYverifyTouch Verio w/Device KitIndications:DM type 2, not at goal (HCC) Use up to 2 times a day E11.9 1 Kit 0 12/01/2022 Active [employer] Verio In Vitro Strip (Glucose Blood)Indications:D M type 2, not at goal (HCC) Use up to 2 times a day E11.9 100 Strip 11 12/01/2022 Active Magnesium Oxide 400 MG Oral Tablet Take 1 Tablet by mouth daily. 0 12/01/2022 Active Omeprazole 40 MG Oral Capsule Delayed Release (PriLOSEC)Indicatio ns:Abdominal pain, epigastric Take 1 Capsule by mouth in the morning. 1 hour before the first meal of the day. 90 Capsule 3 12/26/2022 Active Insulin Glargine 100 UNIT/ML Subcutaneous Solution Pen-injector (Lantus) Inject 7 Units under the skin in the morning. 1 Each 0 04/30/2023 Active Ondansetron 4 MG Oral Tablet Disintegrating (Zofran)Indications :Nausea DISSOLVE 1 TABLET ON TONGUE DIRECTED. 60 Tablet 0 05/01/2023 Active Dicyclomine HCl 10 MG Oral Capsule (Bentyl)Indications :Irritable bowel syndrome, unspecified type Take 1 Capsule by mouth 3 times a day as needed for Cramping. 30 Capsule 2 06/08/2023 Active metFORMIN HCl ER 500 MG Oral Tablet Extended Release 24 Hour (Glucophage XR)Indications:DM type 2 nursing care encounter (HCC) Take 2 Tablets by mouth in the morning and 2 Tablets before bedtime. 360 Tablet 3 06/17/2023 Active Gabapentin 300 MG Oral Capsule (Neurontin)Indicati ons:Peripheral polyneuropathy Take 1 Capsule by mouth at bedtime. 30 Capsule 11 06/17/2023 Active Cholecalciferol (VITAMIN D3) 15749 units CapsuleIndications: Vitamin D deficiency Take 1 Cap by mouth once a week. 4 Cap 3 10/06/2018 06/18/20 23 Discontinu ed(Refill) Betamethasone Dipropionate 0.05 % ointmentIndications :Dermatitis apply to the hands twice daily as needed 45 g 2 12/19/2019 06/19/20 23 Discontinu ed(Refill) fluticasone (FLONASE) 50 MCG/ACT nasal sprayIndications:Ac anika sinusitis, recurrence not specified, unspecified location ADMINISTER 2 SPRAYS INTO EACH NOSTRIL DAILY. 16 g 2 2020 06/18/20 23 Discontinu ed(Refill) Mupirocin 2 % External Ointment (Bactroban) APPLY TO AFFECTED AREA 3 TIMES A DAY FOR 14 DAYS. 22 g 0 10/16/2020 06/18/20 23 Discontinu ed(Refill) Albuterol Sulfate HFA 108 (90 Base) MCG/ACT Inhalation Aerosol SolutionIndications :Bronchitis, complicated INHALE 2 PUFFS BY MOUTH EVERY 4 HOURS NEEDED FOR WHEEZING. 54 g 1 04/15/2021 06/18/20 23 Discontinu ed(Refill) Polyethylene Glycol 3350 17 GM/SCOOP Oral Powder (Miralax)Indication s:Irritable bowel syndrome DISSOLVE ONE HEAPING TABLESPOON IN 8 OZ OF WATER OR JUICE-1 OR 2 DOSES 2 TIMES DAILY 527 g 0 04/30/2021 06/18/20 23 Discontinu ed(Refill) metFORMIN HCl ER 500 MG Oral Tablet Extended Release 24 Hour (Glucophage XR) Take 2 by mouth per day 180 Tablet 0 05/15/2023 06/17/20 23 Discontinu ed(Refill) Levothyroxine Sodium 112 MCG Oral Tablet (Levoxyl)Indication s:Other specified hypothyroidism Take 2 Tablets by mouth daily first thing in the morning. (at least 30 min prior to breakfast or other meds) 180 Tablet 0 06/09/2023 06/19/20 Discontinu ed(Refill) Hospital, Clinic, or Other Facility Administered Medication Ordered Dose Route Frequency Start Date End Date Status albuterol sulfate (PROVENTIL) (2.5 MG/3ML) 0.083% inhalation solution 2.5 mgIndications:Tobacco use disorder,Bronchitis, complicated,Wheeze 2.5 mg NEBULIZER Q4H PRN 01/27/2019 Active documented as of this encounter (statuses as of 06/19/2023) Active Problems Problem Noted Date Diagnosed Date Chronic obstructive pulmonary disease 06/17/2023 Type 2 diabetes mellitus wit h hemoglobin A1c goal of less than 7.0% 11/28/2022 Food insecurity 03/25/2021 Overview: Per [facility] Protocol Chronic narcotic use 12/29/2018 Hx of hysterectomy 12/12/2013 LFT elevation 09/07/2012 Chronic rhinitis 02/28/2003 Tobacco use disorder 04/19/2002 COMMON MIGRAINE WITHOUT MENTION OF INTRACTABLE M IGRAINE 12/28/2000 ADJ DISORDER W/DEPRES MOOD 10/23/1999 Irritable bowel syndrome 08/14/1999 Hypothyroidism 02/06/1999 documented as of this encounter (statuses as of 06/19/2023) Resolved Problems Problem Noted Date Diagnosed Date Resolved Date Kidney disease, chronic, sta ge III (GFR 30-59 ml/min) 11/24/2017 12/29/2018 Overview: Per CKD protocol #1 Headache 06/29/2012 09/07/2012 Overview: ICD-10 update of inactive term Abdominal pain, left lower quadrant 09/13/2007 09/07/2012 ADVANCE DIRECTIVE INFORMATION 08/31/2007 12/29/2018 Overview: 11/24/07 No, Advance Directive brochure given to patient at prior appointment. VIRAL GASTROENTERITIS 10/14/20062012 Nausea with vomiting 10/14/2006 013 Headache 10/21/2005 09/07/2012 Overview: ICD-10 update of inactive term Spasm of muscle 10/21/2005 09/07/2012 Chest pain 10/21/2005 09/07/2012 Malaise and fatigue 10/21/2005 09/07/19 13 ACUTE STRESS 10/21/2005 09/07/2012 VARIANTS OF MIGRAINE WITH IN TRACTABLE MIGRAINE, SO STATED 07/08/2005 09/07/2012 Abdominal pain, generalized 07/08/2005 08/31/2007 ACUTE SINUSITIS NOS 07/08/2005 12/16/19 06 ACUTE URI NOS 07/08/2005 12/15/2005 CHRONIC TOBACCO MUCOSITIS 07/08/2005 MEDICATION USE AGREEMENT 01/30/2005 Overview: Managed by Dr. Muniz. To view the Medication Usage Agreement, go to Action, Patient Files. Nausea with vomiting 03/21/2003 004 Acute bronchitis, antibiotics not indicated 02/28/2003 04/25/2004 ACUTE URI NOS 02/28/2003 04/25/2004 Female genital symptoms 02/22/200203/17 Overview: ICD-10 update of inactive term ABDOMINAL PAIN, RIGHT UPPER QUADRANT 03/23/2001 08/31/2007 OBESITY, UNSPECIFIED 11/03/2000 004 Major depressive disorder 11/03/2000 Overview: ICD-10 update of inactive term ONYCHIA OF TOE, LATERAL RIGHT GREAT TOE 10/28/2000 04/25/2004 INGROWING NAIL, SUSPECTED 10/28/2000 Anal or rectal pain 01/01/2000 04/25/20 04 Anal spasm 12/27/1999 04/25/2004 VARIANTS OF MIGRAINE WITH IN TRACTABLE MIGRAINE, SO STATED 10/30/1999 04/25/2004 Tension headache 10/30/1999 03/26/2017 Endometriosis 08/14/1999 03/26/2017 Chest pain 06/04/1999 04/25/2004 BACKACHE NOS 06/04/1999 04/25/2004 Tietze's disease 06/04/1999 04/25/2004 Spasm of muscle 06/04/1999 04/25/2004 PRESCRIP-ORAL CONTRACEPT 04/2004 documented as of this encounter (statuses as of 06/19/2023) Immunizations Name Administration Dates Next Due Pneumococcal Polysaccharide PPV23 (Pneumovax) 06/29/2012,03/02/2009(Deferred: Contraindication - pt on prednisone taper) SEASONAL INFLUENZA, PF, 6 M & Above, IM , (FLULAVAL or FLUZONE) 08/05/2017 Seasonal Influenza, Split, I IV3, With Preserve, Inj 06/29/2012,06/17/2008 TDAP (age 11 and older)(Adacel) 11/24/2008 documented as of this encounter Social History Tobacco Use Types Packs/Day Years Used Date Smoking Tobacco: Every Day Cigarettes 0.5 5 Smokeless Tobacco: Never Tobacco Cessation:Ready to Q uit: Not Asked; Counseling Given: Not Answered Comments:on occasion Alcohol Use Standard Drinks/Week Comments Yes 0 (1 standard drink = 0.6 oz pure alcohol) As of 2.2006, the last noted alcohol intake was 1 ounces. occ PHQ-2 Answer Date Recorded PHQ-2 Score 0 04/18/2020 Hunger Vital Sign Answer Date Recorded Worried About Running Out of Food in the Last Ye ar Sometimes true 04/18/2020 Ran Out of Food in the Last Year Sometimes true 04/18/2020 Sex and Gender Information Value Date Recorded Sex Assigned at Not on file Gender Identity Not on file Sexual Orientation Straight 04/18/2020 11 :07 AM EDT Job Start Date Occupation Industry Not on file Not on file Not on file documented as of this encounter Last Filed Vital Signs Vital Sign Reading Time Taken Comments Blood Pressure 144/86 06/17/2023 1:14 PM EDT Pulse 123 06/17/2023 1:14 PM EDT Temperature 36.1 C (96.9 F) 06/17/2023 1:14 PM ED T Respiratory Rate 17 06/17/2023 1:14 PM EDT Oxygen Saturation 99% 06/17/2023 1:14 PM EDT Inhaled Oxygen Concentration - - Weight 88.4 kg (194 lb 14.4 oz) 06/17/2023 1:14 PM EDT Height - - Body Mass Index 35.65 12/03/2022 1:48 PM EDT documented in this encounter Patient Instructions * Patient Instructions* Ashleigh Jackson LPN - 06/17/2023 1:21 PM EDT Images from the original note were not included. Diabetes: Keeping Feet Healthy Inspect your feet every day for signs of a problem. Diabetes can damage nerves in your feet and cause neuropathy. This condition makes it hard for you to feel injuries or sore spots. Diabetes can also change blood flow, making it harder for small problems, like a blister, to heal properly. In fact, minor injuries can quickly become serious infections that send you to the hospital. Practice self-care to protect your feet and keep them healthy. Take Special Care Inspect your feet daily for problems such as redness, blisters, cracks, dry skin, or numbness. Use a mirror to see the bottoms of your feet. Or, ask for help. Manage your diabetes. Monitor and control your blood sugar. Take all your medications as prescribed. Avoid walking barefoot, even indoors. Wash your feet with warm water and mild soap. Dry well, especially between toes. Dont treat corns or calluses yourself. Talk to your doctor or equipment operator warehouse (a doctor who specializes in foot care) if you need assistance trimming your toenails. Use moisturizing cream or lotion if you have dry skin, but dont use it between toes. Dont use heating pads on your feet. If you have neuropathy, you could get a burn and not feel it. Stop smoking. Smoking restricts blood flow and can make it harder for wounds to heal. Have Regular Checkups Foot problems can develop quickly. So be sure to follow your healthcare teams schedule for regular checkups. During office visits, take off your shoes and socks as soon as you get in the exam room. Ask your healthcare provider to examine your feet for problems. This will make it easier to find and treat small skin irritations before they get worse. Regular checkups can also help keep track of the blood flow and feeling in your feet. If you have neuropathy, you may need to have checkups more often. Wear Proper Footwear Wearing proper footwear is very important. If areas of your feet have been damaged by too much pressure, your healthcare provider may recommend changing your footwear. In some cases, avoiding high heels or tight work boots may be all thats needed. Or, your healthcare provider may recommend special shoes or custom inserts. These help protect your feet and keep existing irritations from getting worse. If you need special footwear, ask your healthcare provider if you qualify for [facility] diabetic shoe program. Make Sure Shoes and Socks Fit Any pair of shoes--new or old--should feel comfortable as soon as you put them on. There shouldnt be any rubbing when you walk. Wear the right shoe for any activity. For instance, a running shoe is designed to keep your feet injury-free while jogging. Buy shoes at the end of the day, when your feet are larger. Make sure they provide support without feeling too loose. Make sure your socks fit, t oo. Wear soft, seamless, well-padded socks for activity. Cotton or microfiber socks are best to help to absorb sweat. To protect your feet, avoid shoes that are open-toed or open-heeled. If you have questions about what kinds of shoes and socks are best, talk to your healthcare team. Get Regular Exercise Regular exercise improves blood flow in your feet. It also increases foot strength and flexibility.Gentle exercises, like walking or riding a stationary bicycle, are best. You can also do special foot exercises. Just be sure to talk with your healthcare provider before starting any exercise program. Also mention if any exercise causes pain, redness, or other signs of foot problems. Note: If you have any kind of break in the skin of your foot or ankle, keep the area clean. Then call your doctor--especially if the area doesnt appear to be healing. [phone] [employer] [address] [place] [address], [place] [address]. All rights reserved. This information is not intended as a substitute for professional medical care. Always follow your healthcare professional's instructions. Dear Daiana Bhandari, The care of your Diabetes is very important to us. A yearly diabetic eye exam is important to protect your vision. If youre getting an eye exam done outside of [facility] please tell your Eye Doctor to fax or mail us the results of your Diabetic Eye Exam at your next visit. Our Address and Fax Number are listed below to help. Thank you for helping us to improve your Diabetes Care Our Office Address and Fax Number: Timoteo Muniz MD [address] [address] Diabetic Retinopathy: Evaluating Your Eyes Diabetic retinopathy is a condition that happens when diabetes damages blood vessels in the rear ofthe eye. It can lead to vision loss. To help catch it early, have a complete dilated eye exam at least once a year. During the exam, the eye healthcare provider will review your medical history, examine your eyes, and check your vision. Women who are and have pre-existing type 1 or type 2 diabetes have an increased risk of retinopathy. Women with diabetes should have an eye exam before or in the first trimester. They should continue to be monitored every trimester and for 1 year after delivery, depending on the severity of the retinopathy. The retina is the light-sensitive part of the eye that allows you to see. High blood sugar can damage blood vessels of the retina and cause them to leak or bleed. This damage can lead to abnormal blood vessel growth. This condition is called diabetic retinopathy. You may not have symptoms early in the disease. Later, there may be floaters, blurred vision, or poor night vision. There may also be partial or complete vision loss. Early cases of diabetic retinopathy can be treated by carefully controlling blood sugar, blood pressure, and cholesterol. Surgery or laser treatments may help restore lost vision. Laser surgery can shrink abnormal blood vessels or close ones that are leaking. Medicines injected in the eye can help decrease swelling of the retina. Home care Take all medicines, including insulin or oral diabetic medicine, exactly as prescribed. Follow the diet advised by your healthcare provider. If you have high cholesterol, follow a low-fat, low-cholesterol diet. Monitor blood sugars as advised. Try to achieve your ideal weight. If you smoke, quit smoking. Tobacco use worsens the effect of diabetes on your blood vessels. If you have high blood pressure, consider buying an automatic blood pressure machine. These are available at most pharmacies. Use this to monitor your blood pressure. Report your blood pressure readings to your healthcare provider. Exercise regularly. Follow-up care Follow up with your healthcare provider, or as advised. You must have a complete eye exam at least once a year, more often if needed. Untreated diabetic retinopathy can lead to complete loss of vision. Occupational therapists can help you adapt to any vision loss you have, including learning techniques to safely administer insulin. When to seek medical advice Call your healthcare provider right away if any of these occur. Increasing blurriness or any sudden changes in your vision Sudden flashes of light inside your eye New floaters (small dots or strings that seem to be moving across your field of vision) Eye pain, redness, or discharge from your eyelid New dark spots appearing in your field of vision Halos around lights Dimness of vision Partial or complete loss of vision Women with diabetes should have a complete eye exam before becoming , or as soon as possible when they find out they are . Retinopathy sometimes worsens during . Your eye exam Your eye healthcare provider uses an eye chart and other tools to check your vision. Then he or sheexamines your eyes for signs of disease. You are given eye drops to widen (dilate) your pupils. Youmay have one or more of the following tests: Tonometry to measure fluid pressure inside the eye. Slit lamp exam to allow the healthcare provider to view the structures of your eye. Ultrasound to create an image of the eye using sound waves. Ultrasound may be used if blood is found in the clear gel that fills the eye (vitreous). Ocular coherence tomography (OCT) to create an image of the retina using light waves. This shows ifthere is fluid leaking into certain parts of the eye. It can also measure the thickness of the retina. Fluorescein angiography This test may be done to check the health of the inside lining of the eye (retina). It also checks the tiny blood vessels (capillaries) that carry blood to the retina. During the test: Photographs are taken of the retina. A dye is then injected into the bloodstream through the arm or hand. The dye travels to the capillaries in the eye. More photographs are taken of the retina. The dye causes the capillaries to stand out on the photographs. You may feel brief nausea during the procedure. For a few hours after the test, your skin, eyes, and urine may appear yellow. Talk with your healthcare provider for more information about this test. Date Last Reviewed: 01/16/201619995059-1916 [employer] [address] [place] [address], [place] [address]. All rights reserved. This information is not intended as a substitute for professional medical care. Always follow your healthcare professional's instructions. documented in this encounter Progress Notes * Tiago Marx MD - 06/17/2023 1:31 PM EDT Images from the original note were not included. Assessment and Plan 1. DM type 2 nursing care encounter (HCC) - DIABETES FOOT EXAM - TELEMEDICINE DIABETIC EYE - DIABETIC EYE EXAM - PHARMACIST MEDS THERAPY MGMT REFERRAL OP - HEMOGLOBIN A1C; Future - COMPREHENSIVE METABOLIC PANEL; Future - metFORMIN HCl ER 500 MG Oral Tablet Extended Release 24 Hour (Glucophage XR); Take 2 Tablets by mouth in the morning and 2 Tablets before bedtime. Dispense: 360 Tablet; Refill: 3 2. Type 2 diabetes mellitus with hemoglobin A1c goal of less than 7.0% ([facility]) Type 2 diabetes with A1c goal of less than 7. Last greater than 12. Continue Lantus 20 units nightly and increase metformin to 2000 mg total daily. 3. Abdominal pain, right lower quadrant Difficult to distinguish between acute pain and chronic pain. X-ray abdomen to rule out obstruction. CBC, CMP, lipase prior to leaving office today. - XR ABDOMEN 1 VIEW - CBC; Future - LIPASE; Future 4. Other specified hypothyroidism Due for repeat TSH to monitor thyroid function. - TSH WITH FREE T4 IF INDICATED; Future 5. Foreign body in left foot, initial encounter Concern for glass retained in the left foot. X-ray for further evaluation. - XR FOOT 3 OR MORE VIEWS 6. Peripheral polyneuropathy Start gabapentin 300 mg nightly. - Gabapentin 300 MG Oral Capsule (Neurontin); Take 1 Capsule by mouth at bedtime. Dispense: 30 Capsule; Refill: 11 7. Chronic obstructive pulmonary disease, unspecified COPD type (HCC) Continue Flovent, DuoNeb, albuterol. Wrap-Up Follow up in 3 months. History of Present Illness The patient is a 53-year-old female with past medical history of type 2 diabetes, hypothyroidism, IBS, tobacco use who presents for diabetes follow up. Patient presents with multiple complaints. She has a history of multiple abdominal surgeries and therefore is at risk of bowel obstruction. She has significant pain in the right lower quadrant along with some bloating. She notes she is had a little bit of diarrhea but no significant stools recently. She also has significant chronic pain that complicates the picture of her abdominal pain. She doesfollow up with gastroenterology and has a gastric emptying study ordered. Patient also has history of diabetes. Most recent A1c was greater than 12 during a recent hospitalization. She currently takes metformin 500 mg twice daily and Lantus 20 units daily. She was due for repeat lab work. She was agreeable to following with MTM. She does have significant neuropathy. She would like to try gabapentin see if this improves symptoms. Patient also reports stepping on glass. She was concerned about foreign body retained in the left foot as she was having pain with each step. On exam she does have an area of broken skin on the plantar aspect of the midfoot, however, no obvious infection or foreign body. She was previously not taking levothyroxine and therefore TSH was significantly elevated. Due for repeat TSH as she has been taking medication consistently. Physical Exam Vitals: 06/17/23 1314 Temp: 36.1 C (96.9 F) Pulse: 123 Resp: 17 SpO2: 99% BP: 144/86 Physical Exam Physical Exam Vitals reviewed. Constitutional: General: She is not in acute distress. Cardiovascular: Rate and Rhythm: Normal rate and regular rhythm. Heart sounds: No murmur heard. Pulmonary: Effort: Pulmonary effort is normal. No respiratory distress. Breath sounds: Normal breath sounds. No wheezing. Abdominal: Comments: Pain to palpation in the right lower quadrant. No masses. Normoactive bowel sounds. No epigastric abdominal pain. Skin: General: Skin is warm and dry. Neurological: General: No focal deficit present. Mental Status: She is alert. documented in this encounter Miscellaneous Notes * Addendum Note - Tiago Marx MD - 06/19/2023 5:11 PM EDTAddended by: TIAGO MARX on: 06/19/2023 05:11 PM Modules accepted: Orders * Result Encounter Note - Tiago Marx MD - 06/19/2023 5:11 PM EDT No bowel obstruction. Recommend repeat xray in 6 months to ensure area of dense bone seen remains stable. Tiago Marx MD * Result Encounter Note - Tiago Marx MD - 06/19/2023 8:57 AM EDT Xray does not show glass in the foot. Tiago Marx MD documented in this encounter Plan of Treatment Upcoming Encounters Date Type Department Care Team (Late st Contact Info) Description 07/10/2023 1:20 PM EST Office Visit [place] [address] [place] [address] [facility] [address] [place] [address] 08/07/2023 11:00 AM EST Office Visit [address] [phone] Tiago Marx MD [address] [place] [address] 09/18/2023 1:00 PM EST Office Visit [facility] [address] [place] [phone] Tiago Marx MD [address] [facility] [place] [address] Scheduled Orders Name Type Priority Associated Diagnoses Orde r Schedule XR PELVIS 1 VIEW Medical Imaging Routine Bone island Ordered: 06/19/2023 Scheduled Referrals Name Type Priority Associated Diagnoses Orde r Schedule PHARMACIST MEDS THERAPY MGMT REFERRAL OP Referral Within 10 days (routine) DM type 2 nursing care encounter (HCC) Ordered: 06/17/2023 Health Maintenance Due Date Last Done Comments DISCUSS TOBACCO CESSATION (REFER TO SMARTSET #3294) 1970 Hepatitis B (1 of 3 - 3-dose series) 1970 COVID-19 Vaccine (#1) 1970 Albumin/Creatinine Ratio 1989 Alpha-1 Antitrypsin 1989 Pneumococcal Vaccine: Pediatrics (0 to 5 Years) and At-Risk Patients (6 to 64 Years) (2 - PCV) 06/29/2013 06/29/2012 Cologuard 02/10/2016 Colonoscopy 02/10/2016 12/08/2000 Colorectal Cancer Screening 02/10/2016 Fecal Occult Blood Test 02/10/2016 Sigmoidoscopy 02/10/2016 DTaP,Tdap,and Td Vaccines (2 - Td or Tdap) 11/24/2018 11/24/2008 Mammogram 03/22/2020 03/22/2019 Zoster Vaccines (1 of 2) 2021 B-12 04/26/2022 04/26/2021, 08/18, 09/04/2009 Lipid Panel 07/31/2022 07/31/2017 Influenza Vaccine (FLU shot) (#1) 2023 08/05/2017, 06/29/2012, 06/17/2008 *COPD SEVERITY VERIFIED BY PFT 06/19/2023 HbA1c 12/16/2023 06/17/2023, 04/17, 09/09/2018, Additional history exists Depression Screening 06/17/2024 06/17/2023 Diabetic Eye Exam 06/17/2024 06/17/2023 Diabetic Foot Exam 06/17/2024 06/17/2023 GFR 06/17/2024 06/17/2023, 11/16, 12/03/2022, Additional history exists O2 ASSESSMENT COMPLETED IN PAST YEAR FOR COPD 06/17/2024 06/17/2023 TSH 06/17/2024 06/17/2023, 06/2 09/2022, 07/20/2019, Additional history exists Hepatitis C Screening Completed 08/05/2017 GARDASIL-HPV IMMUNIZATION SERIES Aged Out No longer eligible based on patient's age to complete this topic MENINGOCOCCAL (MENACTRA/MENVEO) Aged Out No longer eligible based on patient's age to complete this topic documented as of this encounter Medical Devices Not on filedocumented as of this encounter Procedures Procedure Name Priority Date/Time Associated Diagnosis Comments XR ABDOMEN 1 VIEW Routine 06/17/2023 4:5 0 PM EDT Abdominal pain, right lower quadrant XR FOOT 3 OR MORE VIEWS Routine 06/17/2023 4:50 PM EDT Foreign body in left foot, initial encounter TELEMEDICINE DIABETIC EYE Routine 06/17/2023 DM type 2 nursing care encounter (HCC) documented in this encounter Results * XR FOOT 3 OR MORE VIEWS (06/17/2023 4:50 PM EDT) Anatomical Region Laterality Modality Foot, Lower Extremity Computed R adiography 06/18/2023 7:51 AM EDT Impressions 06/18/2023 7:48 AM EDT IMPRESSION No highly radiodense foreign body in the plantar midfoot soft tissues. Narrative 06/18/2023 7:48 AM EDT EXAM XR FOOT 3 OR MORE VIEWS-06/17/2023 4:50 pm HISTORY Stepped on glass, rule out foreign body at the left mid foot. TECHNIQUE: Left, 3 views. COMPARISON: None. 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 Relatively maintained ankle joint space (based on lateral view). Mature cortical thickening at the 3rd MT shaft, likely result of remote stress response. Subtle tiny focus of mineralization near the anterolateral malleolar tip, likely from remote trauma or congenital ossicle (subfibulare). Congenital ossicles (naviculare and peroneum). Posterosuperior calcaneal enthesopathy. Procedure Note Evan Fried MD - 06/18/2023 EXAM XR FOOT 3 OR MORE VIEWS-06/17/2023 4:50 pm HISTORY Stepped on glass, rule out foreign body at the left mid foot. TECHNIQUE: Left, 3 views. COMPARISON: None. 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 Relatively maintained ankle joint space(based on lateral view). Mature cortical thickening at the 3rd MT shaft, likely result of remotestress response. Subtle tiny focus of mineralization near the anterolateral malleolar tip,likely from remote trauma or congenital ossicle (subfibulare). Congenitalossicles (naviculare and peroneum). Posterosuperior calcanealenthesopathy. IMPRESSION IMPRESSION No highly radiodense foreign body in the plantar midfoot soft tissues. Tiago Marx MD RADIOLOGY (RAD GENER AL) * XR ABDOMEN 1 VIEW (06/17/2023 4:50 PM EDT) Anatomical Region Laterality Modality Abdomen, Pelvis Computed Radiogr aphy 06/19/2023 10:5 5 AM EDT Impressions 06/19/2023 10:53 AM EDT IMPRESSION 1. Nonobstructed bowel-gas pattern. 2. Small 9 mm sclerotic lesion right iliac bone with no history of primary malignancy probably a bone island. Follow-up examination is recommended in 3-6 months to ensure stability. 3. Details as above. Narrative 06/19/2023 10:53 AM EDT EXAM XR ABDOMEN 1 VIEW - 06/17/2023 4:50 pm HISTORY history of SBO, bloating and RLQ pain TECHNIQUE Abdomen one view. COMPARISON 10/03/2010. FINDINGS A small calcified opacity is present in the left hemipelvis with mild central lucency most likely a phlebolith. Surgical clips and sutures project of the right lower quadrant similar to prior examination. Surgical clips are present in the right upper quadrant. Bilateral renal fossa are partially obscured by enteric contents which limits evaluation. No definite radiopaque renal calculus. Nonobstructed bowel-gas pattern. Moderate amount of diffuse colonic stool. A small 9 mm sclerotic lesion projects over the right iliac bone new since prior examination. Procedure Note Jeronimo Gutierrez MD - 06/19/2023 EXAM XR ABDOMEN 1 VIEW - 06/17/2023 4:50 pm HISTORY history of SBO, bloating and RLQ pain TECHNIQUE Abdomen one view. COMPARISON 10/03/2010. FINDINGS A small calcified opacity is present in the left hemipelvis with mildcentral lucency most likely a phlebolith. Surgical clips and suturesproject of the right lower quadrant similar to prior examination.Surgical clips are present in the right upper quadrant. Bilateral renalfossa are partially obscured by enteric contents which limits evaluation.No definite radiopaque renal calculus. Nonobstructed bowel-gas pattern.Moderate amount of diffuse colonic stool. A small 9 mm sclerotic lesionprojects over the right iliac bone new since prior examination. IMPRESSION IMPRESSION 1. Nonobstructed bowel-gas pattern. 2. Small 9 mm sclerotic lesion right iliac bone with no history of primarymalignancy probably a bone island. Follow-up examination is recommendedin 3-6 months to ensure stability. 3. Details as above. Tiago Marx MD RADIOLOGY (RAD GENER AL) * LIPASE (06/17/2023 2:27 PM EDT) Lipase 60 13 - 60 U/L 06/18/2023 12:41 AM EDT [facility] Blood Venous blood specimen / Unknown Venipuncture / Unknown 06/17/2023 2:27 PM EDT 06/17/2023 2:27 PM EDT Tiago Marx MD LAB BLOOD ORDERABLES [facility] [address] [place] [address] * (ABNORMAL) CBC (06/17/2023 2:27 PM EDT) WBC 10.24 4.00 - 10.80 K/uL 06/17/2023 10:27 PM EDT [facility] RBC 5.09 3.85 - 5.15 M/uL 06/17/2023 10:27 PM EDT [facility] HGB 14.7 12.0 - 15.3 g/dL 06/17/2023 10:27 PM EDT [facility] HCT 46.4(H) 36.0 - 45.2 % 06/17/2023 10:27 PM EDT [facility] MCV 91.2 81.5 - 97.5 fL 06/17/2023 10:27 PM EDT [facility] MCH 28.9 27.0 - 34.0 pg 06/17/2023 10:27 PM EDT [facility] MCHC 31.7 32.0 - 36.0 g/dL 06/17/2023 10:27 PM EDT [facility] RDW 13.3 11.5 - 15.5 % 06/17/2023 10:27 PM EDT [facility] PLT 319 140 - 400 K/uL 06/17/2023 10:27 PM EDT [facility] MPV 10.8 6.6 - 11.1 fL 06/17/2023 10:27 PM EDT [facility] nRBCs 0 <=0 /100 WBCs 06/17/2023 10:27 PM EDT [facility] Blood Venous blood specimen / Unknown Venipuncture / Unknown 06/17/2023 2:27 PM EDT 06/17/2023 2:27 PM EDT Tiago Marx MD LAB BLOOD ORDERABLES [facility] [address] [place] [address] * (ABNORMAL) HEMOGLOBIN A1C (06/17/2023 2:27 PM EDT) Hemoglobin A1C 10.0(H) 4.0 - 5.6 % 06/18/2023 12:42 AM EDT [facility] Comment:The use of HbA1c to monitor glycemic status is based on normal hemoglobin and HbA composition. This test should not be used in patients with abnormal hemoglobin that affects the half life of the red blood cell or the in vivo glycation rates. Estimated Average Glucose 240(H) <126 mg/dL 06/18/2023 12:42 AM EDT [facility] Blood Venous blood specimen / Unknown Venipuncture / Unknown 06/17/2023 2:27 PM EDT 06/17/2023 2:27 PM EDT Tiago Marx MD LAB BLOOD ORDERABLES [facility] [address] [place] [address] * TELEMEDICINE DIABETIC EYE (06/17/2023) 06/17/2023 Tiago Marx MD DIGITAL PHOTOGRAPHY documented in this encounter Visit Diagnoses Diagnosis DM type 2 nursing care encounter (HCC)- Primary Type II or unspecified type diabetes mellitus without mention of complication, not stated as uncontrolled Type 2 diabetes mellitus with hemoglobin A1c goal of less than 7.0% (HCC) Abdominal pain, right lower quadrant Other specified hypothyroidism Foreign body in left foot, initial encounter Peripheral polyneuropathy Unspecified hereditary and idiopathic peripheral neuropathy Chronic obstructive pulmonary disease, unspecified COPD type (HCC) 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
--- OUTSIDE RECORDS SUMMARY | 2023-07-03 18:14 | External Medical Summary | Summary of Care ---
Author Name Unknown Organization [facility] Address [address] [place] [address] Phone [phone] Care Team Providers Care Vessel Captain Name Role Phone Lionel Mejias MD Primary Care Provider [phone] Reason for Visit * Reason Comments eRx-Medication Refill Encounter Details Date Type Department Care Team (Late st Contact Info) Description 06/24/2023 Refill [facility] [address] [place] [address] Lionel Mejias MD [address] [place] [address] Nausea Allergies Active Allergy Reactions Criticality Noted Date Comments Acetaminophen Liver complications (Please comment) High 06/27/2011 Nsaids Edema face/lips/tongue Medium 02/16/2006 documented as of this encounter (statuses as of 06/25/2023) Medications Medication Sig Dispensed Refills Start Date End Date Status IMITREX STATDOSE REFILL 6 MG/0.5ML SUBQ SOLNIndications:Arturo serafin 0.5 ML 1 TIME ONLY 1 Syringe 5 3 Active Additional Information Patient not taking.Reported on 12/03/2022 aspirin enteric coated 81 MG TBEC Take 1 Tablet by mouth in the morning. 0 Active clotrimazole (LOTRIMIN) 1 % creamIndications:Ye ast infection Apply topically to affected area 2 times a day. To affacted area for two weeks. 24 g 1 7 Active Additional Information Patient not taking.Reported on 06/17/2023 Blood Glucose Monitoring Suppl (HupuUCH ULTRA SYSTEM) w/Device KITIndications:Elev ated glucose Use as directed 4 times a day as needed (fluctuating sugar). Use up to four times a day as directed 1 Kit 0 7 Active FoodzieTOUCH ULTRASOFT LANCETS MISCIndications:Maliha vated glucose Use as directed 4 times a day as needed (fluctuating sugar). Use up to four times a day as directed 1 Box Dosing Unit 11 7 Active FoodzieTOUCH ULTRA BLUE STRPIndications:Maliha vated glucose USE FOUR TIMES A DAY TO TEST SUGAR NEEDED 100 Strip 5 9 Active Spacer/Aero-Holding Chambers (OPTICHAMBER ADVANTAGE) MISCIndications:Bro nchitis, complicated,Tobacco use disorder,Wheeze use with MDI as directed 1 Each 0 9 Active albuterol-ipratropi um (DUONEB) 2.5-0.5 MG/3ML nebulizer solutionIndications :Bronchitis, complicated,Tobacco use disorder,Wheeze Inhale 3 mL via nebulizer 4 times a day. 120 Vial 5 9 Active FLOVENT HFA 110 MCG/ACT inhalerIndications: Bronchitis, complicated,Tobacco use disorder,Wheeze INHALE 2 PUFFS BY MOUTH 2 TIMES A DAY 36 g 3 0 Active Additional Information Patient not taking.Reported on 12/03/2022 The New HiveTouch Verio w/Device KitIndications:DM type 2, not at goal (HCC) Use up to 2 times a day E11.9 1 Kit 0 3 Active The New HiveTouch Verio In Vitro Strip (Glucose Blood)Indications:D M type 2, not at goal (HCC) Use up to 2 times a day E11.9 100 Strip 11 3 Active Magnesium Oxide 400 MG Oral Tablet Take 1 Tablet by mouth daily. 0 3 Active Omeprazole 40 MG Oral Capsule Delayed Release (PriLOSEC)Indicatio ns:Abdominal pain, epigastric Take 1 Capsule by mouth in the morning. 1 hour before the first meal of the day. 90 Capsule 3 3 Active Insulin Glargine 100 UNIT/ML Subcutaneous Solution Pen-injector (Lantus) Inject 7 Units under the skin in the morning. 1 Each 0 3 Active Dicyclomine HCl 10 MG Oral Capsule (Bentyl)Indications :Irritable bowel syndrome, unspecified type Take 1 Capsule by mouth 3 times a day as needed for Cramping. 30 Capsule 2 3 Active metFORMIN HCl ER 500 MG Oral Tablet Extended Release 24 Hour (Glucophage XR)Indications:DM type 2 nursing care encounter (HCC) Take 2 Tablets by mouth in the morning and 2 Tablets before bedtime. 360 Tablet 3 3 Active Gabapentin 300 MG Oral Capsule (Neurontin)Indicati ons:Peripheral polyneuropathy Take 1 Capsule by mouth at bedtime. 30 Capsule 11 3 Active Polyethylene Glycol 3350 17 GM/SCOOP Oral Powder (Miralax)Indication s:Irritable bowel syndrome DISSOLVE ONE HEAPING TABLESPOON IN 8 OZ OF WATER OR JUICE ONCE OR TWICE PER DAY 510 g 5 3 Active Albuterol Sulfate HFA 108 (90 Base) MCG/ACT Inhalation Aerosol SolutionIndications :Bronchitis, complicated INHALE 2 PUFFS BY MOUTH EVERY 4 HOURS NEEDED FOR WHEEZING. 54 g 1 3 Active Mupirocin 2 % External Ointment (Bactroban) APPLY TO AFFECTED AREA 3 TIMES A DAY FOR 14 DAYS. 22 g 0 3 Active Vitamin D3 1.25 MG (72532 UT) Oral CapsuleIndications: Vitamin D deficiency Take 1 Capsule by mouth once a week. 4 Capsule 3 3 Active Fluticasone Propionate 50 MCG/ACT Nasal Suspension (Flonase)Indication s:Acute sinusitis, recurrence not specified, unspecified location Administer 2 Sprays into each nostril in the morning. 16 g 2 3 Active Betamethasone Dipropionate 0.05 % External OintmentIndications :Dermatitis apply to the hands twice daily as needed 45 g 2 3 Active Levothyroxine Sodium 200 MCG Oral Tablet (Levoxyl)Indication s:Other specified hypothyroidism Take 1 Tablet by mouth daily first thing in the morning. (at least 30 min prior to breakfast or other meds) 90 Tablet 3 3 Active Ondansetron 4 MG Oral Tablet Disintegrating (Zofran)Indications :Nausea DISSOLVE 1 TABLET ON TONGUE DIRECTED. 60 Tablet 0 3 Active Ondansetron 4 MG Oral Tablet Disintegrating (Zofran)Indications :Nausea DISSOLVE 1 TABLET ON TONGUE DIRECTED. 60 Tablet 0 3 06/25/20 23 Discontinued Hospital, Clinic, or Other Facility Administered Medication Ordered Dose Route Frequency Start Date End Date Status albuterol sulfate (PROVENTIL) (2.5 MG/3ML) 0.083% inhalation solution 2.5 mgIndications:Tobacco use disorder,Bronchitis, complicated,Wheeze 2.5 mg NEBULIZER Q4H PRN 01/27/2019 Active documented as of this encounter (statuses as of 06/25/2023) Active Problems Problem Noted Date Diagnosed Date [...] as of this encounter (statuses as of 06/25/2023) Resolved Problems Problem Noted Date Diagnosed Date [...] USE AGREEMENT 01/30/2005 Overview: Managed by Dr. Mejias. To view the Medication Usage Agreement, go [...] as of this encounter (statuses as of 06/25/2023) Immunizations Name Administration Dates Next Due Pneumococcal [...] Day Cigarettes 0.5 5 Smokeless Tobacco: Never Comments:on occasion Alcohol Use Standard Drinks/Week Comments Yes 0 (1 standard drink = 0.6 oz pure alcohol) As of 2.17.2006, the last noted alcohol intake was 1 ounces. occ PHQ-2 Answer Date Recorded PHQ Adult Total Score 2 06/17/2023 Hunger Vital Sign Answer Date Recorded Within the past 12 months, y ou worried that your food would run out before you got the money to buy more. Often true 06/17/20 23 Within the past 12 months, t he food you bought just didn't last and you didn't have money to get more. Often true 06/17/2023 Sex and Gender Information Value Date Recorded Sex Assigned at Not on file Gender Identity Not on file Sexual Orientation Straight 04/18/2020 11 :07 AM EDT Job Start Date Occupation Industry Not on file Not on file Not on file documented as of this encounter Miscellaneous Notes * Telephone Encounter - Oseas Coleman, [facility] - 06/25/2023 10:45 AM ESTSigned Prescriptions: Disp Refills Ondansetron 4 MG Oral Tablet Disintegratin*60 Tab*0 Sig: DISSOLVE 1 TABLET ON TONGUE DIRECTED.Authorizing Provider: LIONEL MEJIAS User: O'SCAR, OSEAS M documented in this encounter Plan of Treatment Upcoming Encounters Date Type Department Care Team (Late st Contact Info) Description 07/10/2023 1:20 PM EST Office Visit Pharmacy, [facility] [address] [place] [facility] [place] [address] [facility] [address] [place] [facility] [place] [address] 08/07/2023 11:00 AM EST Office Visit [place] [address] [place] [facility] [place] [phone] DecemberParviz MD [address] [place] [facility] [place] [address] 09/18/2023 1:00 PM EST Office Visit [facility], [place] [address] [place] [facility] [phone] DecemberParviz MD [address] [facility] [place] [phone] Health Maintenance Due Date Last Done Comments DISCUSS TOBACCO CESSATION (REFER TO SMARTSET #1274) 1970 Hepatitis B (1 of 3 - [...] FOR COPD 06/17/2024 06/17/2023 TSH 06/17/2024 06/17/2023, 01/16, 07/20/2019, Additional history exists Hepatitis C Screening Completed 08/05/2017 GARDASIL-HPV IMMUNIZATION SERIES Aged Out No longer eligible based on patient's age to complete this topic MENINGOCOCCAL (MENACTRA/MENVEO) Aged Out No longer eligible based on patient's age to complete this topic documented as of this encounter Medical Devices Not on filedocumented as of this encounter Visit Diagnoses Diagnosis Nausea Nausea alone documented in this encounter Advance Directives Latest Code Status on File Code Status Date Activated Date Inactivated Comments Full Code 09/06/2007 4:39 PM 09/08/2007 6:17 PM Code Status History Code Status Date Activated Date Inactivated Comments Full Code 09/06/2007 1:04 PM 09/06/2007 4:39 PM Full Code 09/02/2007 9:42 AM 09/03/2007 5:34 PM Care Teams Vessel Captain Relationship Specialty Start Date End Date Lionel Mejias MD [address] [place] [address] PCP - General Family Medicine 01/20/12 documented as of this encounter
--- OUTSIDE RECORDS SUMMARY | 2023-07-03 18:14 | External Medical Summary | Summary of Care ---
Author Name Unknown Organization [facility] Address [address] [facility] [address] Phone [phone] Care Team Providers Care State Assessed Properties Director Name Role Phone Lionel Mejias MD Primary Care Provider +1- [phone] Reason for Visit * Reason Onset Date Comments Medication Refill 06/18/2023 Encounter Details Date Type Department Care Team (Late st Contact Info) Description 06/18/2023 Refill [facility] [address] [place] [address] Angie George PA-C [address] [place] [address] Irritable bowel syndrome Allergies Active Allergy Reactions Criticality Noted Date [...] taking.Reported on 06/17/2023 Blood Glucose Monitoring Suppl (CamerbornUCH ULTRA SYSTEM) w/Device KITIndications:Elev ated glucose Use as directed 4 times a day as needed (fluctuating sugar). Use up to four times a day as directed 1 Kit 0 08/05/2017 Active Paymetric ULTRASOFT LANCETS MISCIndications:Maliha vated glucose Use as directed 4 times a day as needed (fluctuating sugar). Use up to four times a day as directed 1 Box Dosing Unit 11 08/05/2017 Active CamerbornUCH ULTRA BLUE STRPIndications:Maliha vated glucose USE FOUR [...] Additional Information Patient not taking.Reported on 12/03/2022 Nano Game StudioTouch Verio w/Device KitIndications:DM type 2, not at goal (HCC) Use up to 2 times a day E11.9 1 Kit 0 12/01/2022 Active Nano Game StudioTouch Verio In Vitro Strip (Glucose Blood)Indications:D M [...] at bedtime. 30 Capsule 11 06/17/2023 Active Polyethylene Glycol 3350 17 GM/SCOOP Oral Powder (Miralax)Indication s:Irritable bowel syndrome DISSOLVE ONE HEAPING TABLESPOON IN 8 OZ OF WATER OR JUICE ONCE OR TWICE PER DAY 510 g 5 06/19/2023 Active Albuterol Sulfate HFA 108 (90 Base) MCG/ACT Inhalation Aerosol SolutionIndications :Bronchitis, complicated INHALE 2 PUFFS BY MOUTH EVERY 4 HOURS NEEDED FOR WHEEZING. 54 g 1 06/18/2023 Active Fluticasone Propionate 50 MCG/ACT Nasal Suspension (Flonase)Indication s:Acute sinusitis, recurrence not specified, unspecified location Administer 2 Sprays into each nostril in the morning. 16 g 2 06/18/2023 Active Cholecalciferol (VITAMIN D3) 90019 units CapsuleIndications: Vitamin D deficiency Take 1 Cap by mouth once a week. 4 Cap 3 10/06/2018 06/18/20 23 Discontinu ed(Refill) Betamethasone Dipropionate 0.05 % ointmentIndications :Dermatitis apply to the hands twice daily as needed 45 g 2 12/19/2019 06/19/20 23 Discontinu ed(Refill) Mupirocin 2 % External Ointment (Bactroban) APPLY TO AFFECTED AREA 3 TIMES A DAY FOR 14 DAYS. 22 g 0 10/16/2020 06/18/20 23 Discontinu ed(Refill) Polyethylene Glycol 3350 17 GM/SCOOP Oral Powder (Miralax)Indication s:Irritable bowel syndrome DISSOLVE ONE HEAPING TABLESPOON IN 8 OZ OF WATER OR JUICE-1 OR 2 DOSES 2 TIMES DAILY 527 g 0 04/30/2021 06/18/20 23 Discontinu ed(Refill) Levothyroxine Sodium 112 MCG Oral Tablet (Levoxyl)Indication s:Other specified hypothyroidism Take 2 Tablets by mouth daily first thing in the morning. (at least 30 min prior to breakfast or other meds) 180 Tablet 0 06/09/2023 06/19/20 23 Discontinu ed(Refill) Hospital, Clinic, or Other Facility [...] encounter Miscellaneous Notes * Telephone Encounter - Lionel Mejias MD - 06/19/2023 4:02 PM EDTSigned Prescriptions: Disp Refills Polyethylene Glycol 3350 17 GM/SCOOP Oral *510 g 5 Sig: DISSOLVEONE HEAPING TABLESPOON IN 8 OZ OF WATER OR JUICE ONCE OR TWICE PER DAYAuthorizing Provider: LIONEL MEJIAS * Telephone Encounter - Gabriella Abreu [facility] - 06/19/2023 6:41 AM EDTPending Prescriptions: Disp Refills Polyethylene Glycol 3350 17 GM/SCOOP Oral *527 g 0 Sig: DISSOLVE ONE HEAPING TABLESPOON IN 8 OZ OF WATER OR JUICE-1 OR 2 DOSES 2 TIMES DAILY * Telephone Encounter - Gabriella Abreu [facility] - 06/19/2023 6:40 AM EDT Did you pend patient's preferred pharmacy and medication before forwarding?yes Pharmacy: [id number] [address] [place] [address] Pending Prescriptions: Disp Refills Polyethylene Glycol 3350 17 GM/SCOOP Oral*527 g 0 Sig: DISSOLVE ONE HEAPING TABLESPOON IN 8 OZ OF WATER OR JUICE-1 OR 2 DOSES 2 TIMES DAILY Last Visit: 06/17/2023 (in office), 02/16/2023 (telemedicine) Next Visit: 08/07/2023 If no future appointments scheduled, and last appointment is greater than a year ago, please schedule patient for a follow-up appointment Last date the medication was ordered: 04/30/21 Is this request for a controlled substance?No Urine Drug Screen: Results for orders placed or performed in visit on 04/26/21 TOXICOLOGY, URINE SCREEN W/ CONFIRMATION Result Value Amphetamine Positive (A) Benzodiazepines Negative Cannabinoids Negative Cocaine Metabolite Negative Hydrocodone / Hydromorphone Negative Methadone Metabolite Negative Morphine / Codeine Negative Oxycodone / Oxymorphone Negative Narrative Cutoff Concentrations: Drug Level Amphetamines 500 ng/mL Benzodiazepines 100 ng/mL Cannabinoids 50 ng/mL Cocaine Metabolite 150 ng/mL Hydrocodone / Hydromorphone 100 ng/mL Methadone Metabolite 100 ng/mL Morphine / Codeine 300 ng/mL Oxycodone / Oxymorphone 100 ng/mL Screening results are presumptive and can only be used for medical purposes. Positive screening results are reflexed to confirmatory testing. Results for orders placed or performed in visit on 10/30/18 TOX SCREEN, URINE, W/O CONFIRMATION Result Value Amphetamine NEGATIVE Barbiturates NEGATIVE Benzodiazepines NEGATIVE Cannabinoids NEGATIVE Cocaine Metabolite NEGATIVE Morphine / Codeine NEGATIVE METHADONE METABOLITE NEGATIVE OXYCODONE POSITIVE (A) NOTE: THE ABOVE SCREENING RESULTS ARE PRESUMPTIVE AND CAN ONLY BE USED FOR MEDICAL PURPOSES. CONFIRMATORY TESTING IS AVAILABLE UPON REQUEST. Cutoff Concentration *Note: Due to a large number of results and/or encounters for the requested time period, some results have not been displayed. A complete set of results can be found in Results Review. Patient Phone Numbers Labs: Lab Results Component Value Date/Time CREAT 1.3 (H) 06/17/2023 02:27 PM CREAT 0.94 12/13/2018 12:00 AM CREAT 1.1 (H) 09/09/2018 12:15 PM CREAT 0.8 06/13/1996 04:30 PM POTASSIUM 4.1 06/17/2023 02:27 PM POTASSIUM 3.7 12/13/2018 12:00 AM POTASSIUM 4.8 09/09/2018 12:15 PM POTASSIUM 4.1 06/13/1996 04:30 PM TSH 0.09 (L) 06/17/2023 02:27 PM TSH 0.02 (L) 07/20/2019 11:40 AM TSH 3.06 06/07/1996 04:00 PM LDLCALC 147 (H) 07/31/2017 12:08 PM ALT 35 06/17/2023 02:27 PM ALT 31 09/09/2018 12:15 PM ALT 22 06/13/1996 04:30 PM HGBA1C 10.0 (H) 06/17/2023 02:27 PM HGBA1C 6.5 (H) 09/09/2018 12:15 PM documented in this encounter Plan of Treatment Upcoming Encounters Date Type Department Care Team (Late st Contact Info) Description 07/10/2023 1:20 PM EST Office Visit Pharmacy, [facility] [address] [place] [address] [facility] [address] [place] [address] 08/07/2023 11:00 AM EST Office Visit [facility] [address] [place] [phone] DecemberParviz MD [address] [place] [address] 09/18/2023 1:00 PM EST Office Visit [facility] [address] [place] [phone] DecemberParviz MD [address] [place], [place] [phone] Health Maintenance Due Date Last Done Comments DISCUSS TOBACCO CESSATION (REFER TO SMARTSET #3291) 1970 Hepatitis B (1 of 3 - [...] as of this encounter Visit Diagnoses Diagnosis Irritable bowel syndrome documented in this encounter Advance Directives Latest Code Status on File Code Status Date Activated Date Inactivated Comments Full Code 09/06/2007 4:39 PM 09/08/2007 6:17 PM Code Status History Code Status Date Activated Date Inactivated Comments Full Code 09/06/2007 1:04 PM 09/06/2007 4:39 PM Full Code 09/02/2007 9:42 AM 09/03/2007 5:34 PM Care Teams State Assessed Properties Director Relationship Specialty Start Date End Date Lionel Mejias MD [address] [place] [address] PCP - General Family Medicine 01/20/12 documented as of this encounter
--- OUTSIDE RECORDS SUMMARY | 2023-07-03 18:14 | External Medical Summary | Summary of Care ---
Author Name Unknown Organization [facility] Address [address] [place] [address] Phone [phone] Care Team Providers Care Conduit Cleaner Name Role Phone Timoteo Muniz MD Primary Care Provider +1- [phone] Reason for Visit * Reason Onset Date Comments Advice 06/26/2023 Encounter Details Date Type Department Care Team (Late st Contact Info) Description 06/26/2023 Telephone [facility] [address] [place] [address] Timoteo Muniz MD [address] [place] [address] Advice Allergies Active Allergy Reactions Criticality Noted Date Comments Acetaminophen Liver complications (Please comment) High 06/27/2011 Nsaids Edema face/lips/tongue Medium 02/16/2006 documented as of this encounter (statuses as of 06/29/2023) Medications Medication Sig Dispensed Refills Start Date [...] taking.Reported on 06/17/2023 Blood Glucose Monitoring Suppl (atCollabUCH ULTRA SYSTEM) w/Device KITIndications:Elev ated glucose Use as directed 4 times a day as needed (fluctuating sugar). Use up to four times a day as directed 1 Kit 0 08/05/2017 Active [employer] ULTRASOFT LANCETS MISCIndications:Maliha vated glucose Use as directed 4 times a day as needed (fluctuating sugar). Use up to four times a day as directed 1 Box Dosing Unit 11 08/05/2017 Active atCollabUCH ULTRA BLUE STRPIndications:Maliha vated glucose USE FOUR [...] Additional Information Patient not taking.Reported on 12/03/2022 Money[employer]ion Verio w/Device KitIndications:DM type 2, not at goal (HCC) Use up to 2 times a day E11.9 1 Kit 0 12/01/2022 Active [employer]Lion Verio In Vitro Strip (Glucose Blood)Indications:D M [...] the day. 90 Capsule 3 12/26/2022 Active Dicyclomine HCl 10 MG Oral Capsule [...] FOR WHEEZING. 54 g 1 06/18/2023 Active Mupirocin 2 % External Ointment (Bactroban) APPLY TO AFFECTED AREA 3 TIMES A DAY FOR 14 DAYS. 22 g 0 06/19/2023 Active Vitamin D3 1.25 MG (06989 UT) Oral CapsuleIndications: Vitamin D deficiency Take 1 Capsule by mouth once a week. 4 Capsule 3 06/19/2023 Active Fluticasone Propionate 50 MCG/ACT Nasal Suspension (Flonase)Indication s:Acute sinusitis, recurrence not specified, unspecified location Administer 2 Sprays into each nostril in the morning. 16 g 2 06/18/2023 Active Betamethasone Dipropionate 0.05 % External OintmentIndications :Dermatitis apply to the hands twice daily as needed 45 g 2 06/19/2023 Active Levothyroxine Sodium 200 MCG Oral Tablet (Levoxyl)Indication s:Other specified hypothyroidism Take 1 Tablet by mouth daily first thing in the morning. (at least 30 min prior to breakfast or other meds) 90 Tablet 3 06/19/2023 Active Ondansetron 4 MG Oral Tablet Disintegrating (Zofran)Indications :Nausea DISSOLVE 1 TABLET ON TONGUE DIRECTED. 60 Tablet 0 06/25/2023 Active Insulin Glargine 100 UNIT/ML Subcutaneous Solution Pen-injector (Lantus)Indications :Type 2 diabetes mellitus with hemoglobin A1c goal of less than 7.0% ([facility]) Inject 20 Units under the skin in the morning. 15 mL 1 06/29/2023 Active Insulin Glargine 100 UNIT/ML Subcutaneous Solution Pen-injector (Lantus) Inject 7 Units under the skin in the morning. 1 Each 0 04/30/2023 06/29/20 23 Discontinu ed(Refill) Hospital, Clinic, or Other Facility Administered Medication Ordered Dose Route Frequency Start Date End Date Status albuterol sulfate (PROVENTIL) (2.5 MG/3ML) 0.083% inhalation solution 2.5 mgIndications:Tobacco use disorder,Bronchitis, complicated,Wheeze 2.5 mg NEBULIZER Q4H PRN 01/27/2019 Active documented as of this encounter (statuses as of 06/29/2023) Active Problems Problem Noted Date Diagnosed Date [...] as of this encounter (statuses as of 06/29/2023) Resolved Problems Problem Noted Date Diagnosed Date [...] as of this encounter (statuses as of 06/29/2023) Immunizations Name Administration Dates Next Due Pneumococcal [...] encounter Miscellaneous Notes * Telephone Encounter - Wendy Fajardo, JEAN - 06/29/2023 11:20 AM EST Called and spoke with pt. Now needs sent to [facility] in [place] * Telephone Encounter - Mumtaz Drummond OSA - 06/26/2023 8:46 AM EST Pt sts received insulin (lantus) from [facility] 7 units, now up to 20 units per retail zone specialist. Now pt sts 1 of her pins aren't working and would need a RX for lantus at the [facility] in [place], [place] [address], [address], sts she needs ot zev because she forgot hers at home documented in this encounter Plan of Treatment Upcoming Encounters Date Type Department Care Team (Late st Contact Info) Description 07/10/2023 1:20 PM EST Office Visit Pharmacy, [place] [address] [place] [address] [facility] [address] [place] [address] 08/07/2023 11:00 AM EST Office Visit [facility] [address] [place] [phone] DecemberParviz MD [address] [place] [address] 09/18/2023 1:00 PM EST Office Visit [facility] [address] [place] [phone] DecemberParviz MD [address], [place] [phone] Health Maintenance Due Date Last Done Comments DISCUSS TOBACCO CESSATION (REFER TO SMARTSET #6851) 1970 Hepatitis B (1 of 3 - [...] as of this encounter Visit Diagnoses Diagnosis Type 2 diabetes mellitus with hemoglobin A1c goal of less than 7.0% (HCC)- Primary documented in this encounter Advance Directives Latest Code Status on File Code Status Date Activated Date Inactivated Comments Full Code 09/06/2007 4:39 PM 09/08/2007 6:17 PM Code Status History Code Status Date Activated Date Inactivated Comments Full Code 09/06/2007 1:04 PM 09/06/2007 4:39 PM Full Code 09/02/2007 9:42 AM 09/03/2007 5:34 PM Care Teams Conduit Cleaner Relationship Specialty Start Date End Date Timoteo Muniz MD [address] [facility] [place] [address] PCP - General Family Medicine 01/20/12 documented as of this encounter
--- OUTSIDE RECORDS SUMMARY | 2023-07-03 18:15 | External Medical Summary | Summary of Care ---
Author Name Unknown Organization [facility] Address [address] [facility] [address] Phone [phone] Care Team Providers Care Electronics Worker Name Role Phone Lionel Mejias MD Primary Care Provider +1- [phone] Reason for Visit * Reason Onset Date Comments Medication Refill 06/18/2023 Encounter Details Date Type Department Care Team (Late st Contact Info) Description 06/18/2023 Refill [facility] [address] [place] [address] Lionel Mejias MD [address] [place] [address] Bronchitis, complicated Allergies Active Allergy Reactions Criticality Noted Date Comments Acetaminophen Liver complications (Please comment) High 06/27/2011 Nsaids Edema face/lips/tongue Medium 02/16/2006 documented as of this encounter (statuses as of 06/18/2023) Medications Medication Sig Dispensed Refills Start Date [...] taking.Reported on 06/17/2023 Blood Glucose Monitoring Suppl (VastechTOUCH ULTRA SYSTEM) w/Device KITIndications:Elev ated glucose Use as directed 4 times a day as needed (fluctuating sugar). Use up to four times a day as directed 1 Kit 0 08/05/2017 Active thereNowUCH ULTRASOFT LANCETS MISCIndications:Maliha vated glucose Use as directed 4 times a day as needed (fluctuating sugar). Use up to four times a day as directed 1 Box Dosing Unit 11 08/05/2017 Active Cholecalciferol (VITAMIN D3) 24055 units CapsuleIndications: Vitamin D deficiency Take 1 Cap by mouth once a week. 4 Cap 3 10/06/2018 Active Additional Information Patient not taking.Reported on 12/03/2022 thereNowUCH ULTRA BLUE STRPIndications:Maliha vated glucose USE FOUR TIMES A DAY TO TEST SUGAR NEEDED 100 Strip 5 12/24/2018 Active Spacer/Aero-Holding Chambers (OPTICHAMBER ADVANTAGE) MISCIndications:Bro nchitis, complicated,Tobacco use disorder,Wheeze use with MDI as directed 1 Each 0 12/29/2018 Active albuterol-ipratropi um (DUONEB) 2.5-0.5 MG/3ML nebulizer solutionIndications :Bronchitis, complicated,Tobacco use disorder,Wheeze Inhale 3 mL via nebulizer 4 times a day. 120 Vial 5 12/29/2018 Active Betamethasone Dipropionate 0.05 % ointmentIndications :Dermatitis apply to the hands twice daily as needed 45 g 2 12/19/2019 Active FLOVENT HFA 110 MCG/ACT inhalerIndications: Bronchitis, complicated,Tobacco use disorder,Wheeze INHALE 2 PUFFS BY MOUTH 2 TIMES A DAY 36 g 3 02/08/2020 Active Additional Information Patient not taking.Reported on 12/03/2022 Mupirocin 2 % External Ointment (Bactroban) APPLY TO AFFECTED AREA 3 TIMES A DAY FOR 14 DAYS. 22 g 0 10/16/2020 Active Additional Information Patient not taking.Reported on 06/17/2023 Polyethylene Glycol 3350 17 GM/SCOOP Oral Powder (Miralax)Indication s:Irritable bowel syndrome DISSOLVE ONE HEAPING TABLESPOON IN 8 OZ OF WATER OR JUICE-1 OR 2 DOSES 2 TIMES DAILY 527 g 0 04/30/2021 Active OneTouch Verio w/Device KitIndications:DM type 2, not at goal ([facility]) Use up to 2 times a day E11.9 1 Kit 0 12/01/2022 Active OneTouch Verio In Vitro Strip (Glucose Blood)Indications:D M type 2, not at goal ([facility]) Use up to 2 times a day [...] for Cramping. 30 Capsule 2 06/08/2023 Active Levothyroxine Sodium 112 MCG Oral Tablet (Levoxyl)Indication s:Other specified hypothyroidism Take 2 Tablets by mouth daily first thing in the morning. (at least 30 min prior to breakfast or other meds) 180 Tablet 0 06/09/2023 09/07/19 24 Active metFORMIN HCl ER 500 MG Oral Tablet Extended Release 24 Hour (Glucophage XR)Indications:DM type 2 nursing care encounter (HCC) Take 2 Tablets by mouth in the morning and 2 Tablets before bedtime. 360 Tablet 3 06/17/2023 Active Gabapentin 300 MG Oral Capsule (Neurontin)Indicati ons:Peripheral polyneuropathy Take 1 Capsule by mouth at bedtime. 30 Capsule 11 06/17/2023 Active Albuterol Sulfate HFA 108 (90 Base) MCG/ACT Inhalation Aerosol SolutionIndications :Bronchitis, complicated INHALE 2 PUFFS BY MOUTH EVERY 4 HOURS NEEDED FOR WHEEZING. 54 g 1 06/18/2023 Active fluticasone (FLONASE) 50 MCG/ACT nasal sprayIndications:Ac anika sinusitis, recurrence not specified, unspecified location ADMINISTER 2 SPRAYS INTO EACH NOSTRIL DAILY. 16 g 2 2020 06/18/20 23 Discontinu ed(Refill) Albuterol Sulfate HFA 108 (90 Base) MCG/ACT Inhalation Aerosol SolutionIndications :Bronchitis, complicated INHALE 2 PUFFS BY MOUTH EVERY 4 HOURS NEEDED FOR WHEEZING. 54 g 1 04/15/2021 06/18/20 23 Discontinu ed(Refill) Hospital, Clinic, or Other Facility Administered Medication Ordered Dose Route Frequency Start Date End Date Status albuterol sulfate (PROVENTIL) (2.5 MG/3ML) 0.083% inhalation solution 2.5 mgIndications:Tobacco use disorder,Bronchitis, complicated,Wheeze 2.5 mg NEBULIZER Q4H PRN 01/27/2019 Active documented as of this encounter (statuses as of 06/18/2023) Active Problems Problem Noted Date Diagnosed Date [...] as of this encounter (statuses as of 06/18/2023) Resolved Problems Problem Noted Date Diagnosed Date [...] as of this encounter (statuses as of 06/18/2023) Immunizations Name Administration Dates Next Due Pneumococcal [...] encounter Miscellaneous Notes * Telephone Encounter - Amira Earl, [facility] - 06/18/2023 8:16 PM EDT Signed Prescriptions: Disp Refills Albuterol Sulfate HFA 108 (90 Base) MCG/AC*54 g 1 Sig: INHALE 2 PUFFS BY MOUTH EVERY 4 HOURS NEEDED FOR WHEEZING.Authorizing Provider: LIONEL MEJIAS User: AMIRA EARL documented in this encounter Plan of Treatment Upcoming Encounters Date Type Department Care Team (Late st Contact Info) Description 07/10/2023 1:20 PM EST Office Visit Pharmacy, [place] [address] [place] [address] [facility] [address] [place] [address] 08/07/2023 11:00 AM EST Office Visit [facility] [facility] [address] [place] [phone] Parviz Arzola MD [address], [place] [phone] 09/18/2023 1:00 PM EST Office Visit [facility] [facility] [address] [place] [phone] DecemberParviz MD [address], [place] [phone] Health Maintenance Due Date Last Done Comments DISCUSS TOBACCO CESSATION (REFER TO SMARTSET #8102) 1970 Hepatitis B (1 of 3 - [...] (FLU shot) (#1) 2023 08/05/2017, 06/29/2012, 06/17/2008 HbA1c 12/16/2023 06/17/2023, 04/17, 09/09/2018, Additional history [...] as of this encounter Visit Diagnoses Diagnosis Bronchitis, complicated Bronchitis, not specified as acute or chronic documented in this encounter Advance Directives Latest Code Status on File Code Status Date Activated Date Inactivated Comments Full Code 09/06/2007 4:39 PM 09/08/2007 6:17 PM Code Status History Code Status Date Activated Date Inactivated Comments Full Code 09/06/2007 1:04 PM 09/06/2007 4:39 PM Full Code 09/02/2007 9:42 AM 09/03/2007 5:34 PM Care Teams Electronics Worker Relationship Specialty Start Date End Date Lionel Mejias MD [address] [place] [address] PCP - General Family Medicine 01/20/12 documented as of this encounter
--- OUTSIDE RECORDS SUMMARY | 2023-07-03 18:15 | External Medical Summary | Summary of Care ---
Author Name Unknown Organization [facility] Address [address] [address] Phone [phone] Care Team Providers Care Aircraft Part Assembler Name Role Phone Lionel Mejias MD Primary Care Provider [phone]- [phone] Reason for Visit * Reason Onset Date Comments Medication Refill 06/18/2023 Encounter Details Date Type Department Care Team (Late st Contact Info) Description 06/18/2023 Refill [facility] [address] [place] [address] Angie George PA-C [address] [place] [address] Dermatitis Allergies Active Allergy Reactions Criticality Noted Date [...] taking.Reported on 06/17/2023 Blood Glucose Monitoring Suppl (CardioDxTOUCH ULTRA SYSTEM) w/Device KITIndications:Elev ated glucose Use as directed 4 times a day as needed (fluctuating sugar). Use up to four times a day as directed 1 Kit 0 08/05/2017 Active Bent Pixels ULTRASOFT LANCETS MISCIndications:Maliha vated glucose Use as directed 4 times a day as needed (fluctuating sugar). Use up to four times a day as directed 1 Box Dosing Unit 11 08/05/2017 Active Document AgilityUCH ULTRA BLUE STRPIndications:Maliha vated glucose USE FOUR [...] Additional Information Patient not taking.Reported on 12/03/2022 AdreimaTouch Verio w/Device KitIndications:DM type 2, not at goal (HCC) Use up to 2 times a day E11.9 1 Kit 0 12/01/2022 Active AdreimaTouch Verio In Vitro Strip (Glucose Blood)Indications:D M [...] 14 DAYS. 22 g 0 06/19/2023 Active Fluticasone Propionate 50 MCG/ACT Nasal Suspension (Flonase)Indication s:Acute sinusitis, recurrence not specified, unspecified location Administer 2 Sprays into each nostril in the morning. 16 g 2 06/18/2023 Active Betamethasone Dipropionate 0.05 % External OintmentIndications :Dermatitis apply to the hands twice daily as needed 45 g 2 06/19/2023 Active Cholecalciferol (VITAMIN D3) 71164 units CapsuleIndications: Vitamin D deficiency Take 1 [...] 7.0% 11/28/2022 Food insecurity 03/25/2021 Overview: Per [facility] Protocol Chronic narcotic use 12/29/2018 Hx [...] Encounter - Lionel Mejias MD - 06/19/2023 4:00 PM EDTSigned Prescriptions: Disp Refills Mupirocin 2 % External Ointment (Bactroban)22 g 0 Sig: APPLY TOAFFECTED AREA 3 TIMES A DAY FOR 14 DAYS.Authorizing Provider: LIONEL MEJIAS Betamethasone Dipropionate 0.05 % External*45 g 2 Sig: apply to the hands twice daily as neededAuthorizing Provider: LIONEL MEJIAS * Telephone Encounter - Teresa Fay RPh - 06/19/2023 6:27 AM EDT Pending Prescriptions: Disp Refills Mupirocin 2 % External Ointment (Bactroban)22 g 0 Sig: APPLY TO AFFECTED AREA 3 TIMES A DAY FOR 14 DAYS. * Telephone Encounter - Teresa Fay RPh - 06/19/2023 6:27 AM EDT Refill pharmacists currently not authorized to approve refills for this class of medication per refill protocol. Please approve if appropriate. Thank you, Teresa Fay, PharmD. Clinical Pharmacist Pharmacy Refill Call Center 06/19/2023, 6:27 AM documented in this encounter Plan of Treatment Upcoming Encounters Date Type Department Care Team (Late [facility]) Description 07/10/2023 1:20 PM EST Office Visit Pharmacy, [place] [address] [place] [address] [facility] [address] [place] [address] 08/07/2023 11:00 AM EST Office Visit [facility], [place] [address] [place] [phone] DecemberParviz MD [address] [place] [address] 09/18/2023 1:00 PM EST Office Visit [facility], [place] [address] [place] [phone] DecemberParviz MD [address] [place] [place] [id number] Health Maintenance Due Date Last Done Comments DISCUSS TOBACCO CESSATION (REFER TO SMARTSET #3298) 1970 Hepatitis B (1 of 3 - [...] as of this encounter Visit Diagnoses Diagnosis Dermatitis Contact dermatitis and other eczema, due to unspecified cause documented in this encounter Advance Directives Latest Code Status on File Code Status Date Activated Date Inactivated Comments Full Code 09/06/2007 4:39 PM 09/08/2007 6:17 PM Code Status History Code Status Date Activated Date Inactivated Comments Full Code 09/06/2007 1:04 PM 09/06/2007 4:39 PM Full Code 09/02/2007 9:42 AM 09/03/2007 5:34 PM Care Teams Aircraft Part Assembler Relationship Specialty Start Date End Date Lionel Mejias MD [address] [facility] [place] [address] PCP - General Family Medicine 01/20/12 documented as of this encounter
--- OUTSIDE RECORDS SUMMARY | 2023-07-03 18:15 | External Medical Summary | Summary of Care ---
Author Name Unknown Organization [facility] Address [address] [facility] [facility] [address] Phone [phone] Care Team Providers Care Poultry Hatchery Manager Name Role Phone Lionel Mejias MD Primary Care Provider [phone]- [phone] Reason for Visit * Reason Onset Date Comments Medication Refill 06/18/2023 Encounter Details Date Type Department Care Team (Late st Contact Info) Description 06/18/2023 Refill [facility] [address] [place] [address] Lionel Mejias MD [address] [place] [address] Acute sinusitis, recurrence not specified, unspecified location Allergies Active Allergy Reactions Criticality Noted Date [...] taking.Reported on 06/17/2023 Blood Glucose Monitoring Suppl (Attune ULTRA SYSTEM) w/Device KITIndications:Elev ated glucose Use as directed 4 times a day as needed (fluctuating sugar). Use up to four times a day as directed 1 Kit 0 08/05/2017 Active Y-KlubUCH ULTRASOFT LANCETS MISCIndications:Maliha vated glucose Use as directed 4 times a day as needed (fluctuating sugar). Use up to four times a day as directed 1 Box Dosing Unit 11 08/05/2017 Active Cholecalciferol (VITAMIN D3) 42375 units CapsuleIndications: Vitamin D deficiency Take 1 Cap by mouth once a week. 4 Cap 3 10/06/2018 Active Additional Information Patient not taking.Reported on 12/03/2022 Y-KlubUCH ULTRA BLUE STRPIndications:Maliha vated glucose USE FOUR [...] w/Device KitIndications:DM type 2, not at goal ([facility]) Use up to 2 times a day E11.9 1 Kit 0 12/01/2022 Active OneTouch Verio In Vitro Strip (Glucose Blood)Indications:D M type 2, not at goal ([facility]) Use up to 2 times a day [...] the morning. 16 g 2 06/18/2023 Active fluticasone (FLONASE) 50 MCG/ACT nasal sprayIndications:Ac anika sinusitis, recurrence not specified, unspecified location ADMINISTER 2 SPRAYS INTO EACH NOSTRIL DAILY. 16 g 2 2020 06/18/20 23 Discontinu ed(Refill) Hospital, Clinic, or [...] encounter Miscellaneous Notes * Telephone Encounter - Dean Nuno, [facility] - 06/18/2023 8:30 PM EDT Signed Prescriptions: Disp Refills Fluticasone Propionate 50 MCG/ACT Nasal Ivan*16 g 2 Sig: Administer 2 Sprays into each nostril in the morning.Authorizing Provider: LIONEL MEJIAS User: DEAN NUNO documented in this encounter Plan of Treatment Upcoming Encounters Date Type Department Care Team (Late st Contact Info) Description 07/10/2023 1:20 PM EST Office Visit Pharmacy, [place] [address] [place] [address] [facility] [address] [place] [address] 08/07/2023 11:00 AM EST Office Visit [place] [address] [place] [facility] [place] [facility] [phone] DecemberParviz MD [address], [place] [phone] 09/18/2023 1:00 PM EST Office Visit [place] [address] [place] [phone] DecemberParviz MD [address] [place] [address] Health Maintenance Due Date Last Done Comments DISCUSS TOBACCO CESSATION (REFER TO SMARTSET #1298) 1970 Hepatitis B (1 of 3 - [...] as of this encounter Visit Diagnoses Diagnosis Acute sinusitis, recurrence not specified, unspecified location documented in this encounter Advance Directives Latest Code Status on File Code Status Date Activated Date Inactivated Comments Full Code 09/06/2007 4:39 PM 09/08/2007 6:17 PM Code Status History Code Status Date Activated Date Inactivated Comments Full Code 09/06/2007 1:04 PM 09/06/2007 4:39 PM Full Code 09/02/2007 9:42 AM 09/03/2007 5:34 PM Care Teams Poultry Hatchery Manager Relationship Specialty Start Date End Date Lionel Mejias MD [address] [place] [address] PCP - General Family Medicine 01/20/12 documented as of this encounter
--- OUTSIDE RECORDS SUMMARY | 2023-07-03 18:15 | External Medical Summary | Summary of Care ---
Author Name Unknown Organization [facility] Address [address] [place] [address] Phone [phone] Care Team Providers Care Tube Builder Airplane Name Role Phone Timoteo Muniz MD Primary Care Provider [phone]- [phone] Reason for Visit * Reason Onset Date Comments Medication Refill 06/18/2023 Encounter Details Date Type Department Care Team (Late st Contact Info) Description 06/18/[address] [place] [address] Buddy Ayers PA-C [address] [place] [address] Dermatitis Allergies Active Allergy Reactions Criticality Noted Date Comments Acetaminophen Liver complications (Please comment) High 06/27/2011 Nsaids Edema face/lips/tongue Medium 02/16/2006 documented as of this encounter (statuses as of 06/19/2023) Medications Medication Sig Dispensed Refills Start Date End Date Status IMITREX STATDOSE REFILL 6 MG/0.5ML SUBQ SOLNIndications:Migr boo 0.5 ML 1 TIME ONLY 1 Syringe 5 11/10/2012 Active Additional Information Patient not taking.Reported on 12/03/2022 aspirin enteric coated 81 MG TBEC Take 1 Tablet by mouth in the morning. 0 Active clotrimazole (LOTRIMIN) 1 % creamIndications:Yea st infection Apply topically to affected area 2 times a day. To affacted area for two weeks. 24 g 1 08/05/2017 Active Additional Information Patient not taking.Reported on 06/17/2023 Blood Glucose Monitoring Suppl (MakooUCH ULTRA SYSTEM) w/Device KITIndications:[place] marko glucose Use as directed 4 times a day as needed (fluctuating sugar). Use up to four times a day as directed 1 Kit 0 08/05/2017 Active SlimTrader ULTRASOFT LANCETS MISCIndications:Elev ated glucose Use as directed 4 times a day as needed (fluctuating sugar). Use up to four times a day as directed 1 Box Dosing Unit 11 08/05/2017 Active Cholecalciferol (VITAMIN D3) 03447 units CapsuleIndications:V itamin D deficiency Take 1 Cap by mouth once a week. 4 Cap 3 10/06/2018 Active Additional Information Patient not taking.Reported on 12/03/2022 MakooUCH ULTRA BLUE STRPIndications:Elev ated glucose USE FOUR TIMES A DAY TO TEST SUGAR NEEDED 100 Strip 5 12/24/2018 Active Spacer/Aero-Holding Chambers (OPTICHAMBER ADVANTAGE) MISCIndications:Bron chitis, complicated,Tobacco use disorder,Wheeze use with MDI as directed 1 Each 0 12/29/2018 Active albuterol-ipratropiu m (DUONEB) 2.5-0.5 MG/3ML nebulizer solutionIndications: Bronchitis, complicated,Tobacco use disorder,Wheeze Inhale 3 mL via nebulizer 4 times a day. 120 Vial 5 12/29/2018 Active Betamethasone Dipropionate 0.05 % ointmentIndications: Dermatitis apply to the hands twice daily as needed 45 g 2 12/19/2019 Active FLOVENT HFA 110 MCG/ACT inhalerIndications:B ronchitis, complicated,Tobacco use disorder,Wheeze INHALE 2 PUFFS BY MOUTH 2 TIMES A DAY 36 g 3 02/08/2020 Active Additional Information Patient not taking.Reported on 12/03/2022 Mupirocin 2 % External Ointment (Bactroban) APPLY TO AFFECTED AREA 3 TIMES A DAY FOR 14 DAYS. 22 g 0 10/16/2020 Active Additional Information Patient not taking.Reported on 06/17/2023 Polyethylene Glycol 3350 17 GM/SCOOP Oral Powder (Miralax)Indications :Irritable bowel syndrome DISSOLVE ONE HEAPING TABLESPOON IN 8 OZ OF WATER OR JUICE-1 OR 2 DOSES 2 TIMES DAILY 527 g 0 04/30/2021 Active OneTouch Verio w/Device KitIndications:DM type 2, not at goal ([facility]) Use up to 2 times a day E11.9 1 Kit 0 12/01/2022 Active OneTouch Verio In Vitro Strip (Glucose Blood)Indications:DM type 2, not at goal ([facility]) Use up to 2 times a day E11.9 100 Strip 11 12/01/2022 Active Magnesium Oxide 400 MG Oral Tablet Take 1 Tablet by mouth daily. 0 12/01/2022 Active Omeprazole 40 MG Oral Capsule Delayed Release (PriLOSEC)Indication s:Abdominal pain, epigastric Take 1 Capsule by mouth in the morning. 1 hour before the first meal of the day. 90 Capsule 3 12/26/2022 Active Insulin Glargine 100 UNIT/ML Subcutaneous Solution Pen-injector (Lantus) Inject 7 Units under the skin in the morning. 1 Each 0 04/30/2023 Active Ondansetron 4 MG Oral Tablet Disintegrating (Zofran)Indications: Nausea DISSOLVE 1 TABLET ON TONGUE DIRECTED. 60 Tablet 0 05/01/2023 Active Dicyclomine HCl 10 MG Oral Capsule (Bentyl)Indications: Irritable bowel syndrome, unspecified type Take 1 Capsule by mouth 3 times a day as needed for Cramping. 30 Capsule 2 06/08/2023 Active Levothyroxine Sodium 112 MCG Oral Tablet (Levoxyl)Indications :Other specified hypothyroidism Take 2 Tablets by mouth daily first thing in the morning. (at least 30 min prior to breakfast or other meds) 180 Tablet 0 06/09/2023 4 Active metFORMIN HCl ER 500 MG Oral Tablet Extended Release 24 Hour (Glucophage XR)Indications:DM type 2 nursing care encounter (HCC) Take 2 Tablets by mouth in the morning and 2 Tablets before bedtime. 360 Tablet 3 06/17/2023 Active Gabapentin 300 MG Oral Capsule (Neurontin)Indicatio ns:Peripheral polyneuropathy Take 1 Capsule by mouth at bedtime. 30 Capsule 11 06/17/2023 Active Albuterol Sulfate HFA 108 (90 Base) MCG/ACT Inhalation Aerosol SolutionIndications: Bronchitis, complicated INHALE 2 PUFFS BY MOUTH EVERY 4 HOURS NEEDED FOR WHEEZING. 54 g 1 06/18/2023 Active Fluticasone Propionate 50 MCG/ACT Nasal Suspension (Flonase)Indications :Acute sinusitis, recurrence not specified, unspecified location Administer 2 Sprays into each nostril in the morning. 16 g 2 06/18/2023 Active Hospital, Clinic, or Other Facility Administered Medication [...] encounter Miscellaneous Notes * Telephone Encounter - Teresa Fay RP - 06/19/2023 6:28 AM EDT Refused Prescriptions: Disp Refills Betamethasone Dipropionate 0.05 % External*45 g 2 Sig: apply tothe hands twice daily as neededRefused By: TERESA FAY for Refusal: Duplicate Request documented in this encounter Plan of Treatment Upcoming Encounters Date Type Department Care Team (Late st Contact Info) Description 07/10/2023 1:20 PM EST Office Visit Pharmacy, [place] [address] [place] [facility] [place] [address] [facility] [address] [place] [facility] [place] [address] 08/07/2023 11:00 AM EST [facility] [address] [place] [facility] [place] [phone] DecemberParviz MD [address] [place], [place] [phone] 09/18/2023 1:00 PM EST Office Visit [facility], [place] [address] [place] [facility] [place] [phone] DecemberParviz MD [address] [place], [place] [phone] Health Maintenance Due Date Last Done Comments DISCUSS TOBACCO CESSATION (REFER TO SMARTSET #1283) 1970 Hepatitis B (1 of 3 - [...] 9:42 AM 09/03/2007 5:34 PM Care Teams Tube Builder Airplane Relationship Specialty Start Date End Date Timoteo Munzi MD [address] [place] [address] PCP - General Family Medicine 01/20/12 documented as of this encounter
--- OUTSIDE RECORDS SUMMARY | 2023-07-03 18:15 | External Medical Summary | Summary of Care ---
Author Name Unknown Organization [facility] Address [address] [facility] [address] Phone [phone] Care Team Providers Care Herpetology Teacher Name Role Phone Lionel Mejias MD Primary Care Provider +1- [phone] Reason for Visit * Reason Onset Date Comments Medication Refill 06/18/2023 Encounter Details Date Type Department Care Team (Late st Contact Info) Description 06/18/2023 Refill [facility] [address] [place] [address] Lionel Mejias MD [address] [place] [address] Vitamin D deficiency Allergies Active Allergy Reactions Criticality Noted Date [...] taking.Reported on 06/17/2023 Blood Glucose Monitoring Suppl (BeMe IntimatesTOUCH ULTRA SYSTEM) w/Device KITIndications:Elev ated glucose Use as directed 4 times a day as needed (fluctuating sugar). Use up to four times a day as directed 1 Kit 0 08/05/2017 Active Doist ULTRASOFT LANCETS MISCIndications:Maliha vated glucose Use as directed 4 times a day as needed (fluctuating sugar). Use up to four times a day as directed 1 Box Dosing Unit 11 08/05/2017 Active EntrisphereUCH ULTRA BLUE STRPIndications:Maliha vated glucose USE FOUR [...] Additional Information Patient not taking.Reported on 12/03/2022 UnirisxTouch Verio w/Device KitIndications:DM type 2, not at goal (HCC) Use up to 2 times a day E11.9 1 Kit 0 12/01/2022 Active UnirisxTouch Verio In Vitro Strip (Glucose Blood)Indications:D M [...] FOR WHEEZING. 54 g 1 06/18/2023 Active Vitamin D3 1.25 MG (33187 UT) Oral CapsuleIndications: Vitamin D deficiency Take 1 Capsule by mouth once a week. 4 Capsule 3 06/19/2023 Active Fluticasone Propionate 50 MCG/ACT Nasal Suspension (Flonase)Indication s:Acute sinusitis, recurrence not specified, unspecified location Administer 2 Sprays into each nostril in the morning. 16 g 2 06/18/2023 Active Cholecalciferol (VITAMIN D3) 66222 units CapsuleIndications: Vitamin D deficiency Take 1 [...] = 0.6 oz pure alcohol) As of 2..2006, the last noted alcohol intake was 1 [...] 06/19/2023 4:00 PM EDTSigned Prescriptions: Disp Refills Vitamin D3 1.25 MG (51276 UT) Oral Capsule 4 Caps*3 Sig: Take 1Capsule by mouth once a week.Authorizing Provider: LIONEL MEJIAS * Telephone Encounter - Teresa Fay [facility] - 06/19/2023 6:35 AM EDT Pending Prescriptions: Disp Refills Vitamin D3 1.25 MG (61270 UT) Oral Capsule 4 Caps*3 Sig: Take 1 Capsule by mouth once a week. * Telephone Encounter - Teresa Fay [facility] - 06/19/2023 6:35 AM EDT Last prescribed 2019 documented in this encounter Plan of Treatment Upcoming Encounters Date Type Department Care Team (Late st Contact Info) Description 07/10/2023 1:20 PM EST [facility] [place] [address] [facility] [address] [place] [address] [facility] [place] [address] 08/07/2023 11:00 AM EST Office Visit [facility], [place] [address] [facility] [phone] DecemberParviz MD [address] [place] [address] 09/18/2023 1:00 PM EST Office Visit [facility], [place] [address] [place] [phone] DecemberParviz MD [address] [place] [address] Health Maintenance Due Date Last Done Comments DISCUSS TOBACCO CESSATION (REFER TO SMARTSET #5421) 1970 Hepatitis B (1 of 3 - [...] as of this encounter Visit Diagnoses Diagnosis Vitamin D deficiency Unspecified vitamin D deficiency documented in this encounter Advance Directives Latest Code Status on File Code Status Date Activated Date Inactivated Comments Full Code 09/06/2007 4:39 PM 09/08/2007 6:17 PM Code Status History Code Status Date Activated Date Inactivated Comments Full Code 09/06/2007 1:04 PM 09/06/2007 4:39 PM Full Code 09/02/2007 9:42 AM 09/03/2007 5:34 PM Care Teams Herpetology Teacher Relationship Specialty Start Date End Date Lionel Mejias MD [address] [place], [place] [phone] PCP - General Family Medicine 01/20/12 documented as of this encounter
--- OUTSIDE RECORDS SUMMARY | 2023-07-03 18:15 | External Medical Summary | Summary of Care ---
Author Name Unknown Organization [facility] Address [address] [place] [address] Phone [phone] Care Team Providers Care Diamond Cutter Name Role Phone Timoteo Muniz MD Primary Care Provider [phone]- [phone] Reason for Visit * Reason Comments Outpatient Testing Encounter Details Date Type Department Care Team (Late st Contact Info) Description 06/17/2023 2:30 PM EDT Laboratory Laboratory, [facility] [address] [place] [address] [facility] [address] [place] [address] Other specified hypothyroidism; Type 2 diabetes mellitus with hemoglobin A1c goal of less than 7.0% ([facility]); DM type 2 nursing care encounter ([facility]); Abdominal pain, right lower quadrant Allergies Active Allergy Reactions Criticality Noted Date [...] taking.Reported on 06/17/2023 Blood Glucose Monitoring Suppl (LoHaria ULTRA SYSTEM) w/Device KITIndications:Elev ated glucose Use as directed 4 times a day as needed (fluctuating sugar). Use up to four times a day as directed 1 Kit 0 08/05/2017 Active LoHaria ULTRASOFT LANCETS MISCIndications:Maliha vated glucose Use as directed 4 times a day as needed (fluctuating sugar). Use up to four times a day as directed 1 Box Dosing Unit 11 08/05/2017 Active Cholecalciferol (VITAMIN D3) 80444 units CapsuleIndications: Vitamin D deficiency Take 1 Cap by mouth once a week. 4 Cap 3 10/06/2018 Active Additional Information Patient not taking.Reported on 12/03/2022 MyAppConverter[employer]CH ULTRA BLUE STRPIndications:Maliha vated glucose USE FOUR [...] w/Device KitIndications:DM type 2, not at goal ([facility]) Use up to 2 times a day E11.9 1 Kit 0 12/01/2022 Active OneTouch Verio In Vitro Strip (Glucose Blood)Indications:D M type 2, not at goal ([facility]) Use up to 2 times a [...] at bedtime. 30 Capsule 11 06/17/2023 Active Levothyroxine Sodium 200 MCG Oral Tablet (Levoxyl)Indication s:Other specified hypothyroidism Take 1 Tablet by mouth daily first thing in the morning. (at least 30 min prior to breakfast or other meds) 90 Tablet 3 06/19/2023 Active fluticasone (FLONASE) 50 MCG/ACT nasal sprayIndications:Ac anika sinusitis, recurrence not specified, unspecified location ADMINISTER 2 SPRAYS INTO EACH NOSTRIL DAILY. 16 g 2 2020 06/18/20 23 Discontinu ed(Refill) Albuterol Sulfate HFA 108 (90 Base) MCG/ACT Inhalation Aerosol SolutionIndications :Bronchitis, complicated INHALE 2 PUFFS BY MOUTH EVERY 4 HOURS NEEDED FOR WHEEZING. 54 g 1 04/15/2021 06/18/20 23 Discontinu ed(Refill) Levothyroxine Sodium 112 [...] 7.0% 11/28/2022 Food insecurity 03/25/2021 Overview: Per [facility] Protocol Chronic narcotic use 12/29/2018 Hx [...] 10/28/2000 Anal or rectal pain 01/01/2000 04/25/20 Anal spasm 12/27/1999 04/25/2004 VARIANTS OF MIGRAINE [...] as of this encounter Miscellaneous Notes * Addendum Note - Tiago Marx MD - 06/19/2023 8:56 AM EDTAddended by: TIAGO MARX on: 06/19/2023 08:56 AM Modules accepted: Orders * Result Encounter Note - Tiago Marx MD - 06/19/2023 8:56 AM EDT Over medicated on levothyroxine. Decrease to 200 mcg once daily. Sent to [facility] in [place]. Rest oflab work stable. Awaiting imaging. Tiago Marx MD documented in this encounter Plan of Treatment Upcoming Encounters Date Type Department Care Team (Late st Contact Info) Description 07/10/2023 1:20 PM EST [facility] [address] [place] [address] [facility] [address] [place] [address] 08/07/2023 11:00 AM EST Office Visit [facility] [address] [place] [phone] Tiago Marx MD [address] [place] [address] 09/18/2023 1:00 PM EST Office Visit [facility] [address] [place] [address] Tiago Marx MD [address] [place] [address] Health Maintenance Due Date Last Done Comments [...] Procedure Name Priority Date/Time Associated Diagnosis Comments TSH WITH FREE T4 IF INDICATED Routine 06/17/2023 2:27 PM EDT Other specified hypothyroidism HEMOGLOBIN A1C Routine 06/17/2023 2:27 PM EDT DM type 2 nursing care encounter (HCC) COMPREHENSIVE METABOLIC PANEL Routine 06/17/2023 2:27 PM EDT Type 2 diabetes mellitus with hemoglobin A1c goal of less than 7.0% (HCC) LIPASE Routine 06/17/2023 2:27 PM EDT Abdominal pain, right lower quadrant CBC Routine 06/17/2023 2:27 PM EDT Abdominal pain, right lower quadrant T4, FREE Routine 06/17/2023 2:27 PM EDT Other specified hypothyroidism documented in this encounter Results * (ABNORMAL) T4, FREE (06/17/2023 2:27 PM EDT) T4, Free 3.0(H) 0.9 - 1.7 ng/dL 06/18/2023 1:42 AM EDT LABORATORY [facility] Blood Venous blood specimen / Unknown Venipuncture / Unknown 06/17/2023 2:27 PM EDT 06/17/2023 2:27 PM EDT Timoteo Muniz MD LAB BLOOD ORDERABL ES Performing Organization Address City/[facility]/ZIP Co de Phone Number LABORATORY [facility] [address] [place] [address] * LIPASE (06/17/2023 2:27 PM EDT) Lipase 60 13 - 60 U/L 06/18/2023 12:41 AM EDT LAB[facility]ATORY [facility] Blood Venous blood specimen / Unknown Venipuncture / Unknown 06/17/2023 2:27 PM EDT 06/17/2023 2:27 PM EDT Tiago Marx MD LAB BLOOD ORDERABLES Performing Organization Address City/[facility]/ZIP Co de Phone Number LABORATORY [facility] [address] [place] [address] * (ABNORMAL) CBC (06/17/2023 2:27 PM EDT) WBC 10.24 4.00 - 10.80 K/uL 06/17/2023 10:27 PM EDT LABORATORY [facility] RBC 5.09 3.85 - 5.15 M/uL 06/17/2023 10:[address] [facility] HGB 14.7 12.0 - 15.3 g/dL 06/17/2023 10:27 PM EDT LABORATORY [facility] HCT 46.4(H) 36.0 - 45.2 % 06/17/2023 10:27 PM EDT LABORATORY [facility] MCV 91.2 81.5 - 97.5 fL 06/17/2023 10:[address] [facility] MCH 28.9 27.0 - 34.0 pg 06/17/2023 10:[address] [facility] MCHC 31.7 32.0 - 36.0 g/dL 06/17/2023 10:[address] [facility] RDW 13.3 11.5 - 15.5 % 06/17/2023 10:[address] [facility] PLT 319 140 - 400 K/uL 06/17/2023 10:[address] [facility] MPV 10.8 6.6 - 11.1 fL 06/17/2023 10:[address] [facility] nRBCs 0 <=0 /100 WBCs 06/17/2023 10:[address] [facility] Blood Venous blood specimen / Unknown Venipuncture / Unknown 06/17/2023 2:27 PM EDT 06/17/2023 2:27 PM EDT Tiago Mrax MD LAB BLOOD ORDERABLES LABORATORY [facility] [address] [place] [address] * (ABNORMAL) HEMOGLOBIN A1C (06/17/2023 2:27 PM EDT) Hemoglobin A1C 10.0(H) 4.0 - 5.6 % 06/18/2023 12:42 AM EDT LABORATORY C Comment:The use of HbA1c to monitor glycemic status is based on normal hemoglobin and HbA composition. This test should not be used in patients with abnormal hemoglobin that affects the half life of the red blood cell or the in vivo glycation rates. Estimated Average Glucose 240(H) <126 mg/dL 06/18/2023 12:[address] [facility] Blood Venous blood specimen / Unknown Venipuncture / Unknown 06/17/2023 2:27 PM EDT 06/17/2023 2:27 PM EDT Tiago Marx MD LAB BLOOD ORDERABLES LABORATORY [facility] [address] [place] [address] * (ABNORMAL) COMPREHENSIVE METABOLIC PANEL (06/17/2023 2:27 PM EDT) BUN 36(H) 6 - 20 mg/dL 06/18/2023 12:41 AM EDT LABORATORY C Creatinine 1.3(H) 0.5 - 1.0 mg/dL 06/18/2023 12:[address] [facility] Estimated Glomerular Filtration Rate 49(L) >=60 mL/min 06/18/2023 12:[address] [facility] Comment:eGFR is calculated b ased on the CKD-EPI 2020 equation Sodium 141 135 - 146 mmol/L 06/18/2023 12:41 AM EDT LABORATORY [facility] Potassium 4.1 3.5 - 5.1 mmol/L 06/18/2023 12:41 AM EDT LABORATORY C Chloride 100 98 - 107 mmol/L 06/18/2023 12:41 AM EDT LAB[facility]ATORY [facility] CO2 25 22 - 32 mmol/L 06/18/2023 12:41 AM EDT LABORATORY C Anion Gap 16(H) 7 - 15 mmol/L 06/18/2023 12:41 AM EDT LABORATORY C Glucose 156(H) 70 - 120 mg/dL 06/18/2023 12:41 AM EDT LAB[facility]ATORY [facility] Albumin 4.9 3.8 - 5.0 g/dL 06/18/2023 12:41 AM EDT LAB[facility]ATORY [facility] AST 21 10 - 35 U/L 06/18/2023 12:41 AM EDT LAB[facility]ATORY [facility] Alkaline Phosphatase 98 35 - 130 U/L 06/18/2023 12:41 AM EDT LAB[facility]ATORY [facility] Bilirubin, Total 0.4 <=1.2 mg/dL 06/18/2023 12:41 AM EDT LAB[facility]ATORY [facility] Calcium 9.9 8.4 - 10.2 mg/dL 06/18/2023 12:41 AM EDT LAB[facility]ORY [facility] Protein 7.6 6.0 - 8.3 g/dL 06/18/2023 12:41 AM EDT LAB[facility]ATORY [facility] ALT 35 10 - 35 U/L 06/18/2023 12:41 AM EDT LAB[facility]ATORY [facility] Blood Venous blood specimen / Unknown Venipuncture / Unknown 06/17/2023 2:27 PM EDT 06/17/2023 2:27 PM EDT Timoteo Muniz MD LAB BLOOD ORDERABL ES Performing Organization Address City/[facility]/ZIP Co de Phone Number LABORATORY [facility] [address] [place] [address] * (ABNORMAL) TSH WITH FREE T4 IF INDICATED (06/17/2023 2:27 PM EDT) TSH 0.09(L) 0.27 - 4.20 uIU/mL 06/18/2023 1:20 AM EDT LAB[facility]ATORY [facility] Blood Venous blood specimen / Unknown Venipuncture / Unknown 06/17/2023 2:27 PM EDT 06/17/2023 2:27 PM EDT Timoteo Muniz MD LAB BLOOD ORDERABL ES LABORATORY [facility] [address] [place] [address] documented in this encounter Visit Diagnoses Diagnosis Other specified hypothyroidism Type 2 diabetes mellitus with hemoglobin A1c goal of less than 7.0% (HCC) DM type 2 nursing care encounter (HCC) Type II or unspecified type diabetes mellitus without mention of complication, not stated as uncontrolled Abdominal pain, right lower quadrant documented in this encounter Advance Directives Latest Code Status on File Code Status Date Activated Date Inactivated Comments Full Code 09/06/2007 4:39 PM 09/08/2007 6:17 PM Code Status History Code Status Date Activated Date Inactivated Comments Full Code 09/06/2007 1:04 PM 09/06/2007 4:39 PM Full Code 09/02/2007 9:42 AM 09/03/2007 5:34 PM Care Teams Diamond Cutter Relationship Specialty Start Date End Date Timoteo Muniz MD [address] [facility] [place] [address] PCP - General Family Medicine 01/20/12 documented as of this encounter
--- OUTSIDE RECORDS SUMMARY | 2023-07-03 18:16 | External Medical Summary | Summary of Care ---
Author Name Unknown Organization [facility] Address [address] [place] [address] Phone [phone] Care Team Providers Care Gluing Machine Feeder Name Role Phone Timoteo Muniz MD Primary Care Provider +1- [phone] Reason for Visit * Reason Comments Outpatient Testing Encounter Details Date Type Department Care Team (Late st Contact Info) Description 06/17/2023 2:30 PM EDT Laboratory Laboratory, [place] [address] [place] [address] [facility] [address] [place] [address] Other specified hypothyroidism; Type 2 diabetes mellitus with hemoglobin A1c goal of less than 7.0% ([facility]); DM type 2 nursing care encounter ([facility]); Abdominal pain, right lower quadrant Allergies Active Allergy Reactions Criticality Noted Date Comments Acetaminophen Liver complications (Please comment) High 06/27/2011 Nsaids Edema face/lips/tongue Medium 02/16/2006 documented as of this encounter (statuses as of 06/17/2023) Medications Medication Sig Dispensed Refills Start Date [...] taking.Reported on 06/17/2023 Blood Glucose Monitoring Suppl (Inspherion ULTRA SYSTEM) w/Device KITIndications:Silas marko glucose Use as directed 4 times a day as needed (fluctuating sugar). Use up to four times a day as directed 1 Kit 0 08/05/2017 Active Inspherion ULTRASOFT LANCETS MISCIndications:Elev ated glucose Use as directed 4 times a day as needed (fluctuating sugar). Use up to four times a day as directed 1 Box Dosing Unit 11 08/05/2017 Active Cholecalciferol (VITAMIN D3) 69128 units CapsuleIndications:V itamin D deficiency Take 1 Cap by mouth once a week. 4 Cap 3 10/06/2018 Active Additional Information Patient not taking.Reported on 12/03/2022 [employer]AndGasRecruiterUCH ULTRA BLUE STRPIndications:Elev ated glucose USE FOUR [...] Additional Information Patient not taking.Reported on 12/03/2022 fluticasone (FLONASE) 50 MCG/ACT nasal sprayIndications:Acu te sinusitis, recurrence not specified, unspecified location ADMINISTER 2 SPRAYS INTO EACH NOSTRIL DAILY. 16 g 2 2020 Active Additional Information Patient not taking.Reported on 12/03/2022 Mupirocin 2 % External Ointment (Bactroban) APPLY TO AFFECTED AREA 3 TIMES A DAY FOR 14 DAYS. 22 g 0 10/16/2020 Active Additional Information Patient not taking.Reported on 06/17/2023 Albuterol Sulfate HFA 108 (90 Base) MCG/ACT Inhalation Aerosol SolutionIndications: Bronchitis, complicated INHALE 2 PUFFS BY MOUTH EVERY 4 HOURS NEEDED FOR WHEEZING. 54 g 1 04/15/2021 Active Polyethylene Glycol 3350 17 GM/SCOOP Oral [...] (Glucose Blood)Indications:DM type 2, not at goal (HCC) Use [...] at bedtime. 30 Capsule 11 06/17/2023 Active Hospital, Clinic, or Other Facility Administered Medication Ordered Dose Route Frequency Start Date End Date Status albuterol sulfate (PROVENTIL) (2.5 MG/3ML) 0.083% inhalation solution 2.5 mgIndications:Tobacco use disorder,Bronchitis, complicated,Wheeze 2.5 mg NEBULIZER Q4H PRN 01/27/2019 Active documented as of this encounter (statuses as of 06/17/2023) Active Problems Problem Noted Date Diagnosed Date Type 2 diabetes mellitus wit h hemoglobin [...] as of this encounter (statuses as of 06/17/2023) Resolved Problems Problem Noted Date Diagnosed Date [...] as of this encounter (statuses as of 06/17/2023) Immunizations Name Administration Dates Next Due Pneumococcal [...] on file documented as of this encounter Plan of Treatment Upcoming Encounters Date Type Department Care Team ([facility] st Contact Info) Description 07/10/2023 1:20 PM EST Office Visit Pharmacy, [place] [address] [place] [address] [facility] [address] [facility] [place] [place] [address] 08/07/2023 11:00 AM EST Office Visit [facility] [address] [place] [address] DecemberParviz MD [address], [place] [id number] 09/18/2023 1:00 PM EST Office Visit [facility] [address] [place] [address] December[facility] MD [address] [place] [address] Pending Results Name Type Priority Associated Diagnoses Date /Time TSH WITH FREE T4 IF INDICATED Lab Routine Other specified hypothyroidism 06/17/2023 2:27 PM EDT COMPREHENSIVE METABOLIC PANEL Lab Routine Type 2 diabetes mellitus with hemoglobin A1c goal of less than 7.0% ([facility]) 06/17/2023 2:27 PM EDT HEMOGLOBIN A1C Lab Routine DM type 2 nursing care encounter ([facility]) 06/17/2023 2:27 PM EDT CBC Lab Routine Abdominal pain, right lower quadrant 06/17/2023 2:27 PM EDT Health Maintenance Due Date Last Done Comments DISCUSS TOBACCO CESSATION (REFER TO SMARTSET #8199) 1971 Hepatitis B (1 of 3 - 3-dose series) 1971 COVID-19 Vaccine (#1) 1971 Albumin/Creatinine Ratio 1989 Pneumococcal Vaccine: Pediatrics (0 to 5 Years) and At-Risk Patients (6 to 64 Years) (2 - PCV) 06/29/2013 06/29/2012 Cologuard 02/10/2016 Colonoscopy 02/10/2016 12/08/2000 Colorectal Cancer Screening 02/10/2016 Fecal Occult Blood Test 02/10/2016 Sigmoidoscopy 02/10/2016 DTaP,Tdap,and Td Vaccines (2 - Td or Tdap) 11/24/2018 11/24/2008 Mammogram 03/22/2020 03/22/2019 Zoster Vaccines (1 of 2) 2021 Depression Screening 04/18/2021 04/18/2020 HbA1c 10/24/2021 04/26/2021, 08/18, 01/05/2018, Additional history exists B-12 04/26/2022 04/26/2021, 08/18, 09/04/2009 Lipid Panel 07/31/2022 07/31/2017 Influenza Vaccine (FLU shot) (#1) 2023 08/05/2017, 06/29/2012, 06/17/2008 GFR 12/13/2023 12/12/2022, 11/15, 04/26/2021, Additional history exists TSH 02/06/2024 02/05/2023, 11/2018, 04/08/2019, Additional history exists Diabetic Eye Exam 06/17/2024 06/17/2023 Diabetic Foot Exam 06/17/2024 06/17/2023 Hepatitis C Screening Completed 08/05/2017 GARDASIL-HPV IMMUNIZATION SERIES Aged Out No longer eligible based on patient's age to complete this topic MENINGOCOCCAL (MENACTRA/MENVEO) Aged Out No longer eligible based on patient's age to complete this topic documented as of this encounter Medical Devices Not on filedocumented as of this encounter Visit Diagnoses Diagnosis Other specified [...] 9:42 AM 09/03/2007 5:34 PM Care Teams Gluing Machine Feeder Relationship Specialty Start Date End Date Timoteo Muniz MD [address] [place] [facility] [place] [address] PCP - General Family Medicine 01/20/12 documented as of this encounter
--- OUTSIDE RECORDS SUMMARY | 2023-07-03 18:16 | External Medical Summary | Summary of Care ---
Author Name Unknown Organization [facility] Address [address] [place] [address] Phone [phone] Care Team Providers Care Legal Instructor Name Role Phone Lionel Mejias MD Primary Care Provider [phone]- [phone] Reason for Visit * Reason Onset Date Comments Medication Refill 05/14/2023 Encounter Details Date Type Department Care Team Description 05/14/2023 Refill [facility] [address] [place] [address] Lionel Mejias MD [address] [place] [address] Allergies Active Allergy Reactions Severity Noted Date Comments Acetaminophen Liver complications (Please comment) High 06/27/2011 Nsaids Edema face/lips/tongue Medium 02/16/2006 documented as of this encounter (statuses as of 05/15/2023) Medications Medication Sig Dispensed Refills Start Date [...] two weeks. 24 g 1 08/05/2017 Active Blood Glucose Monitoring Suppl ([employer] ULTRA SYSTEM) w/Device KITIndications:Elev ated glucose Use as directed 4 times a day as needed (fluctuating sugar). Use up to four times a day as directed 1 Kit 0 08/05/2017 Active EveryScapeUCH ULTRASOFT LANCETS MISCIndications:Maliha vated glucose Use as directed 4 times a day as needed (fluctuating sugar). Use up to four times a day as directed 1 Box Dosing Unit 11 08/05/2017 Active Cholecalciferol (VITAMIN D3) 96279 units CapsuleIndications: Vitamin D deficiency Take 1 Cap by mouth once a week. 4 Cap 3 10/06/2018 Active Additional Information Patient not taking.Reported on 12/03/2022 EveryScapeUCH ULTRA BLUE STRPIndications:Maliha vated glucose USE FOUR [...] on 12/03/2022 fluticasone (FLONASE) 50 MCG/ACT nasal sprayIndications:Ac [place] sinusitis, recurrence not specified, unspecified location ADMINISTER 2 SPRAYS INTO EACH NOSTRIL DAILY. 16 g 2 2020 Active Additional Information Patient not taking.Reported on 12/03/2022 Mupirocin 2 % External Ointment (Bactroban) APPLY TO AFFECTED AREA 3 TIMES A DAY FOR 14 DAYS. 22 g 0 10/16/2020 Active Albuterol Sulfate HFA 108 (90 Base) [...] as needed for Cramping. 30 Capsule 2 01/13/2023 Active Levothyroxine Sodium 112 MCG Oral Tablet (Levoxyl)Indication s:Other specified hypothyroidism Take 2 Tablets by mouth daily first thing in the morning. (at least 30 min prior to breakfast or other meds) 90 Tablet 1 01/13/2023 Active Insulin Glargine 100 UNIT/ML Subcutaneous Solution Pen-injector (Lantus) Inject 7 Units under the skin in the morning. 1 Each 0 04/30/2023 Active Ondansetron 4 MG Oral Tablet Disintegrating (Zofran)Indications :Nausea DISSOLVE 1 TABLET ON TONGUE DIRECTED. 60 Tablet 0 05/01/2023 Active metFORMIN HCl ER 500 MG Oral Tablet Extended Release 24 Hour (Glucophage XR) Take 2 by mouth per day 180 Tablet 0 05/15/2023 Active metFORMIN ER (GLUCOPHAGE XR) 500 MG TB24 TAKE ONE TABLET BY MOUTH 2 TIMES A DAY WITH MORNING AND EVENING MEALS 90 Tab 0 2020 05/14/20 23 Discontinu ed(Refill) Hospital, Clinic, or Other Facility Administered Medication Ordered Dose Route Frequency Start Date End Date Status albuterol sulfate (PROVENTIL) (2.5 MG/3ML) 0.083% inhalation solution 2.5 mgIndications:Tobacco use disorder,Bronchitis, complicated,Wheeze 2.5 mg NEBULIZER Q4H PRN 01/27/2019 Active documented as of this encounter (statuses as of 05/15/2023) Active Problems Problem Noted Date Type 2 diabetes mellitus with hemoglobin A1c goal of less than 7.0% 11/28/2022 Food insecurity 03/25/2021 Overview: Per [facility] Protocol Chronic narcotic use 12/29/2018 Hx of hysterectomy 12/12/2013 LFT elevation 09/07/2012 Chronic rhinitis 02/28/2003 Tobacco use disorder 04/19/2002 COMMON MIGRAINE WITHOUT MENTION OF INTRA CTABLE MIGRAINE 12/28/2000 ADJ DISORDER W/DEPRES MOOD 10/23/1999 Irritable bowel syndrome 08/14/1999 Hypothyroidism 02/06/1999 documented as of this encounter (statuses as of 05/15/2023) Resolved Problems Problem Noted Date Resolved Date Kidney disease, chronic, stage III (GFR 30-59 ml /min) 11/24/2017 12/29/2018 Overview: Per CKD protocol #1 Headache 06/29/2012 09/07/2012 Overview: ICD-10 update of inactive term Abdominal pain, left lower quadrant 09/13/2007 09/07/2012 ADVANCE DIRECTIVE INFORMATION 08/31/2007 Overview: 11/24/07 No, Advance Directive brochure given to patient at prior appointment. VIRAL GASTROENTERITIS 10/14/2006 09/07/2012 Nausea with vomiting 10/14/2006 09/07/2012 Headache 10/21/2005 09/07/2012 Overview: ICD-10 update of inactive term Spasm of muscle 10/21/2005 09/07/2012 Chest pain 10/21/2005 09/07/2012 Malaise and fatigue 10/21/2005 09/07/2012 ACUTE STRESS 10/21/2005 09/07/2012 VARIANTS OF MIGRAINE WITH INTRACTABLE MIGRAINE, SO STATED 07/08/2005 09/07/2012 Abdominal pain, generalized 07/08/200508/17 ACUTE SINUSITIS NOS 07/08/2005 12/15/2005 ACUTE URI NOS 07/08/2005 12/15/2005 CHRONIC TOBACCO MUCOSITIS 07/08/20052012 MEDICATION USE AGREEMENT 01/30/2005 013 Overview: Managed by Dr. Mejias. To view the Medication Usage Agreement, go to Action, Patient Files. Nausea with vomiting 03/21/2003 04/25/2004 Acute bronchitis, antibiotics not indicated 02/1404/25/2004 ACUTE URI NOS 02/28/2003 04/25/2004 Female genital symptoms 02/22/2002 03/26/20 17 Overview: ICD-10 update of inactive term ABDOMINAL PAIN, RIGHT UPPER QUADRANT 03/23/2001 08/31/2007 OBESITY, UNSPECIFIED 11/03/2000 04/25/2004 Major depressive disorder 11/03/20002003 Overview: ICD-10 update of inactive term ONYCHIA OF TOE, LATERAL RIGHT GREAT TOE 10/29/1904/25/2004 INGROWING NAIL, SUSPECTED 10/28/20002003 Anal or rectal pain 01/01/2000 04/25/2004 Anal spasm 12/27/1999 04/25/2004 VARIANTS OF MIGRAINE WITH INTRACTABLE MIGRAINE, SO STATED 10/30/1999 04/25/2004 Tension headache 10/30/1999 03/26/2017 Endometriosis 08/14/1999 03/26/2017 Chest pain 06/04/1999 04/25/2004 BACKACHE NOS 06/04/1999 04/25/2004 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 occ Food Insecurity Answer Date Recorded Within the past 12 months, y ou worried that your food would run out before you got money to buy more. Sometimes true 2019 Within the past 12 months, t he food you bought just didn't last and you didn't have money to get more. Sometimes true 09/2019 Sex Assigned at Date Recorded Not on file Job Start Date Occupation Industry Not on file Not on file Not on file documented as of this encounter Miscellaneous Notes * Telephone Encounter - Lionel Mejias MD - 05/15/2023 12:45 PM EDTSigned Prescriptions: Disp Refills metFORMIN HCl ER 500 MG Oral Tablet Extend*180 Ta*0 Sig: Take 2 by mouth per dayAuthorizing Provider: LIONEL MEJIAS * Telephone Encounter - VEGA Marti Tech - 05/15/2023 12:31 PM EDTPending Prescriptions: Disp Refills metFORMIN HCl ER 500 MG Oral Tablet Extend*90 Tab*0 * Telephone Encounter - VEGA Marti - 05/15/2023 12:30 PM EDT Received message from [facility] regarding patient needing appointment. Placed call to patient to advise. Left message on voicemail to call back and schedule appointment. Thank you, Pricila Donahue [facility] Integrated Circuit Design Engineer II [facility] ([facility] (formerly Telepharmacy) 05/15/2023,12:30 PM * Telephone Encounter - Luba Peña [facility] - 05/15/2023 12:08 PM EDTPending Prescriptions: Disp Refills metFORMIN HCl ER 500 MG Oral Tablet Extend*90 Tab*0 * Telephone Encounter - Luba Peña [facility] - 05/15/2023 12:04 PM EDT Patient requesting refill on Metformin last ordered upon [facility] discharge in November andhas not been filled since. Patient is due for f/u office visit Provider was late for 02/16 televisit and patient hung up. Please contact patient so that an appointment can be scheduled with her PRIMARY CARE provider before this refill can be authorized. After contacting patient, please forward request to Lionel Mejias MD. Last Visit: 12/03/2022 (in office), 02/16/2023 (telemedicine) Next Visit: Visit date not found Thank You, Luba Peña [facility] Clinical Pharmacist [facility] ([facility]) (formerly Telepharmacy) [phone] 05/15/2023, 12:08 PM documented in this encounter Plan of Treatment Health Maintenance Due Date Last Done Comments DISCUSS TOBACCO CESSATION (REFER TO SMARTSET #3296) 1970 Hepatitis B (1 of 3 - 3-dose series) 1970 COVID-19 Vaccine (#1) 1971 Albumin/Creatinine Ratio 1989 DIABETES-EYE EXAM 1989 Diabetic Foot Exam 1989 Pneumococcal Vaccine: Pediatrics (0 to 5 [...] 04/26/2021, Additional history exists TSH 02/06/2024 02/05/2023, 12/11/2018, 04/08/2019, Additional history exists Hepatitis C Screening Completed 08/05/2017 GARDASIL-HPV IMMUNIZATION SERIES Aged Out No longer eligible based on patient's age to complete this topic MENINGOCOCCAL (MENACTRA/MENVEO) Aged Out No longer eligible based on patient's age to complete this topic documented as of this encounter Medical Devices Not on filedocumented as of this encounter Advance Directives Latest Code Status on File Code Status Date Activated Date Inactivated Comments Full Code 09/06/2007 4:39 PM 09/08/2007 6:17 PM Code Status History Code Status Date Activated Date Inactivated Comments Full Code 09/06/2007 1:04 PM 09/06/2007 4:39 PM Full Code 09/02/2007 9:42 AM 09/03/2007 5:34 PM Care Teams Legal Instructor Relationship Specialty Start Date End Date Lionel Mejias MD [address] [place] [address] PCP - General Family Medicine 01/20/12 documented as of this encounter
--- OUTSIDE RECORDS SUMMARY | 2023-07-03 18:16 | External Medical Summary | Summary of Care ---
Author Name Unknown Organization [facility] Address [address] [facility] [address] Phone [phone] Care Team Providers Care Life Sciences Teacher Name Role Phone Timoteo Muniz MD Primary Care Provider [phone]- [phone] Reason for Visit * Reason Onset Date Comments Medication Refill 06/05/2023 Encounter Details Date Type Department Care Team (Late st Contact Info) Description 06/05/2023 Refill [facility] [address] [place] [address] DecemberTiago MD [address] [place] [address] Irritable bowel syndrome, unspecified type Allergies Active Allergy Reactions Criticality Noted Date Comments Acetaminophen Liver complications (Please comment) High 06/27/2011 Nsaids Edema face/lips/tongue Medium 02/16/2006 documented as of this encounter (statuses as of 06/08/2023) Medications Medication Sig Dispensed Refills Start Date [...] 1 08/05/2017 Active Blood Glucose Monitoring Suppl ([employer] ULTRA SYSTEM) w/Device KITIndications:Elev ated glucose Use as directed 4 times a day as needed (fluctuating sugar). Use up to four times a day as directed 1 Kit 0 08/05/2017 Active VIOlifeUCH ULTRASOFT LANCETS MISCIndications:Maliha vated glucose Use as directed 4 times a day as needed (fluctuating sugar). Use up to four times a day as directed 1 Box Dosing Unit 11 08/05/2017 Active Cholecalciferol (VITAMIN D3) 85075 units CapsuleIndications: Vitamin D deficiency Take 1 Cap by mouth once a week. 4 Cap 3 10/06/2018 Active Additional Information Patient not taking.Reported on 12/03/2022 VIOlifeUCH ULTRA BLUE STRPIndications:Maliha vated glucose USE FOUR [...] 12/03/2022 fluticasone (FLONASE) 50 MCG/ACT nasal sprayIndications:Ac [place] sinusitis, recurrence not specified, unspecified location ADMINISTER [...] the day. 90 Capsule 3 12/26/2022 Active Levothyroxine Sodium 112 MCG Oral Tablet [...] per day 180 Tablet 0 05/15/2023 Active Dicyclomine HCl 10 MG Oral Capsule (Bentyl)Indications :Irritable bowel syndrome, unspecified type Take 1 Capsule by mouth 3 times a day as needed for Cramping. 30 Capsule 2 06/08/2023 Active Dicyclomine HCl 10 MG Oral Capsule (Bentyl)Indications :Irritable bowel syndrome, unspecified type Take 1 Capsule by mouth 3 times a day as needed for Cramping. 30 Capsule 2 01/13/2023 06/05/20 Discontinu ed(Refill) Hospital, Clinic, or Other Facility Administered Medication Ordered Dose Route Frequency Start Date End Date Status albuterol sulfate (PROVENTIL) (2.5 MG/3ML) 0.083% inhalation solution 2.5 mgIndications:Tobacco use disorder,Bronchitis, complicated,Wheeze 2.5 mg NEBULIZER Q4H PRN 01/27/2019 Active documented as of this encounter (statuses as of 06/08/2023) Active Problems Problem Noted Date Diagnosed Date [...] as of this encounter (statuses as of 06/08/2023) Resolved Problems Problem Noted Date Diagnosed Date [...] as of this encounter (statuses as of 06/08/2023) Immunizations Name Administration Dates Next Due Pneumococcal [...] noted alcohol intake was 1 ounces. occ Sex and Gender Information Value Date Recorded Sex Assigned at Not on file Gender Identity Not on file Sexual Orientation Straight 04/18/2020 11 :07 AM EDT Job Start Date Occupation Industry Not on file Not on file Not on file documented as of this encounter Miscellaneous Notes * Telephone Encounter - Tiago Marx MD - 06/08/2023 7:20 AM EDTSigned Prescriptions: Disp Refills Dicyclomine HCl 10 MG Oral Capsule (Bentyl)30 Cap*2 Sig: Take 1 Capsule by mouth 3 times a day as needed for Cramping. Authorizing Provider: TIAGO MARX * Telephone Encounter - Ana Amezquita LPN - 06/05/2023 8:41 AM EDTPending Prescriptions: Disp Refills Dicyclomine HCl 10 MG Oral Capsule (Bentyl)30 Cap*2 Sig: Take 1 Capsule by mouth 3 times a day as needed for Cramping. * Telephone Encounter - Ana Amezquita LPN - 06/05/2023 8:40 AM EDT Pending Prescriptions: Disp Refills Dicyclomine HCl 10 MG Oral Capsule (Benty*30 Cap*2 Sig: Take 1 Capsule by mouth 3 times a day as needed for Cramping. Last Visit: 12/03/2022 (in office), 02/16/2023 (telemedicine) Next Visit: Visit date not found Last date the medication was ordered: 01/13/2023 Patient Active Problem List Diagnosis Code Hypothyroidism E03.9 Irritable bowel syndrome K58.9 ADJ DISORDER W/DEPRES MOOD F43.21 COMMON MIGRAINE WITHOUT MENTION OF INTRACTABLE MIGRAINE G43.009 Tobacco use disorder F17.200 Chronic rhinitis J31.0 LFT elevation R79.89 Hx of hysterectomy Z90.710 Chronic narcotic use F11.90 Food insecurity Z59.41 Type 2 diabetes mellitus with hemoglobin A1c goal of less than 7.0% ([facility]) E11.9 Labs: Lab Results Component Value Date/Time CREATININE 0.8 06/13/1996 04:30 PM CREATININE - [facility] 1.2 (H) 12/12/2022 01:45 PM CREATININE - [facility] 1.1 (H) 09/09/2018 12:15 PM CREATININE-[facility] 0.94 12/13/2018 12:00 AM Lab Results Component Value Date/Time POTASSIUM 4.1 06/13/1996 04:30 PM POTASSIUM - [facility] 3.8 12/12/2022 01:45 PM POTASSIUM - [facility] 4.8 09/09/2018 12:15 PM POTASSIUM-[facility] 3.7 12/13/2018 12:00 AM Lab Results Component Value Date/Time TSH - [facility] 92.90 (H) 02/05/2023 10:49 AM TSH - [facility] 0.02 (L) 07/20/2019 11:40 AM TSH - [facility] 2.840 02/01/2017 12:00 AM Lab Results Component Value Date/Time LDL CHOLESTEROL (CALCULATED) - [facility] 147 (H) 07/31/2017 12:08 PM Lab Results Component Value Date/Time ALT 22 06/13/1996 04:30 PM ALT - [facility] 33 12/03/2022 02:50 PM ALT - [facility] 31 09/09/2018 12:15 PM ALT-[facility] 46 04/01/2017 12:00 AM Hemoglobin AIC Results: Lab Results Component Value Date/Time HEMOGLOBIN A1C - [facility] 6.8 (H) 04/26/2021 11:02 AM HEMOGLOBIN A1C - [facility] 6.5 (H) 09/09/2018 12:15 PM HEMOGLOBIN A1C - [facility] 6.5 (H) 01/05/2018 12:47 PM HEMOGLOBIN A1C - [facility] 7.3 (H) 08/05/2017 10:19 AM * Telephone Encounter - Jared Castro - 06/05/2023 5:43 AM EDTPending Prescriptions: Disp Refills Dicyclomine HCl 10 MG Oral Capsule (Bentyl)30 Cap*2 Sig: Take 1 Capsule by mouth 3 times a day as needed for Cramping. documented in this encounter Plan of Treatment Health Maintenance Due Date Last Done Comments DISCUSS TOBACCO CESSATION (REFER TO SMARTSET #2690) 1970 Hepatitis B (1 of 3 - [...] 02/06/2024 02/05/2023, 11/2018, 04/08/2019, Additional history exists Hepatitis C Screening Completed 08/05/2017 GARDASIL-HPV IMMUNIZATION SERIES Aged Out No longer eligible based on patient's age to complete this topic MENINGOCOCCAL (MENACTRA/MENVEO) Aged Out No longer eligible based on patient's age to complete this topic documented as of this encounter Medical Devices Not on filedocumented as of this encounter Visit Diagnoses Diagnosis Irritable bowel syndrome, unspecified type documented in this encounter Advance Directives Latest Code Status on File Code Status Date Activated Date Inactivated Comments Full Code 09/06/2007 4:39 PM 09/08/2007 6:17 PM Code Status History Code Status Date Activated Date Inactivated Comments Full Code 09/06/2007 1:04 PM 09/06/2007 4:39 PM Full Code 09/02/2007 9:42 AM 09/03/2007 5:34 PM Care Teams Life Sciences Teacher Relationship Specialty Start Date End Date Timoteo Muniz MD [address] [place] [address] PCP - General Family Medicine 01/20/12 documented as of this encounter
--- OUTSIDE RECORDS SUMMARY | 2023-07-03 18:16 | External Medical Summary | Summary of Care ---
Author Name Unknown Organization [facility] Address [address] [place] [address] Phone [phone] Care Team Providers Care Commercial Pest Control Representative Name Role Phone Lionel Mejias MD Primary Care Provider [phone]- [phone] Reason for Referral * Medication Prior Authorization - Pending Review Specialty Diagnoses / Procedures Referred By Contac t Referred To Contact Diagnoses Nausea Phong Diehl, [facility] [address] [place] [id number] Referral ID Status Reason Start Date Expiration Date V isits Requested Visits Authorized [id number] Pending Review 999 999 Reason for Visit * Reason Comments eRx-Medication Refill Encounter Details Date Type Department Care Team Description 05/01/2023 Refill [facility] [address] [place] [address] Juan Jose Hsu MD [address] [place] [address] Nausea Allergies Active Allergy Reactions Severity Noted Date Comments Acetaminophen Liver complications (Please comment) High 06/27/2011 Nsaids Edema face/lips/tongue Medium 02/16/2006 documented as of this encounter (statuses as of 05/01/2023) Medications Medication Sig Dispensed Refills Start Date [...] two weeks. 24 g 1 7 Active Blood Glucose Monitoring Suppl ([employer] ULTRA SYSTEM) w/Device KITIndications:Elev ated glucose Use as directed 4 times a day as needed (fluctuating sugar). Use up to four times a day as directed 1 Kit 0 7 Active Espial GroupTOUCH ULTRASOFT LANCETS MISCIndications:Maliha vated glucose Use as directed 4 times a day as needed (fluctuating sugar). Use up to four times a day as directed 1 Box Dosing Unit 11 7 Active Cholecalciferol (VITAMIN D3) 10009 units CapsuleIndications: Vitamin D deficiency Take 1 Cap by mouth once a week. 4 Cap 3 9 Active Additional Information Patient not taking.Reported on 12/03/2022 Espial GroupTOUCH ULTRA BLUE STRPIndications:Maliha vated glucose USE FOUR TIMES A DAY TO TEST SUGAR NEEDED 100 Strip 5 9 Active Spacer/Aero-Holding Chambers (OPTICHAMBER ADVANTAGE) MISCIndications:Bro nchitis, complicated,Tobacco use disorder,Wheeze use with MDI as directed 1 Each 0 9 Active albuterol-ipratropi um (DUONEB) 2.5-0.5 MG/3ML nebulizer solutionIndications :Bronchitis, complicated,Tobacco use disorder,Wheeze Inhale 3 mL via nebulizer 4 times a day. 120 Vial 5 9 Active Betamethasone Dipropionate 0.05 % ointmentIndications :Dermatitis apply to the hands twice daily as needed 45 g 2 0 Active FLOVENT HFA 110 MCG/ACT inhalerIndications: Bronchitis, complicated,Tobacco use disorder,Wheeze INHALE 2 PUFFS BY MOUTH 2 TIMES A DAY 36 g 3 0 Active Additional Information Patient not taking.Reported on 12/03/2022 fluticasone (FLONASE) 50 MCG/ACT nasal sprayIndications:Ac [place] sinusitis, recurrence not specified, unspecified location ADMINISTER 2 SPRAYS INTO EACH NOSTRIL DAILY. 16 g 2 0 Active Additional Information Patient not taking.Reported on 12/03/2022 metFORMIN ER (GLUCOPHAGE XR) 500 MG TB24 TAKE ONE TABLET BY MOUTH 2 TIMES A DAY WITH MORNING AND EVENING MEALS 90 Tab 0 0 Active Mupirocin 2 % External Ointment (Bactroban) APPLY TO AFFECTED AREA 3 TIMES A DAY FOR 14 DAYS. 22 g 0 1 Active Albuterol Sulfate HFA 108 (90 Base) MCG/ACT Inhalation Aerosol SolutionIndications :Bronchitis, complicated INHALE 2 PUFFS BY MOUTH EVERY 4 HOURS NEEDED FOR WHEEZING. 54 g 1 1 Active Polyethylene Glycol 3350 17 GM/SCOOP Oral Powder (Miralax)Indication s:Irritable bowel syndrome DISSOLVE ONE HEAPING TABLESPOON IN 8 OZ OF WATER OR JUICE-1 OR 2 DOSES 2 TIMES DAILY 527 g 0 1 Active OneTouch Verio w/Device KitIndications:DM type 2, not at goal (HCC) Use up to 2 times a day E11.9 1 Kit 0 3 Active OneTouch Verio In Vitro Strip (Glucose [...] the day. 90 Capsule 3 3 Active Dicyclomine HCl 10 MG Oral Capsule (Bentyl)Indications :Irritable bowel syndrome, unspecified type Take 1 Capsule by mouth 3 times a day as needed for Cramping. 30 Capsule 2 05/30/202 3 Active Levothyroxine Sodium 112 MCG Oral Tablet (Levoxyl)Indication s:Other specified hypothyroidism Take 2 Tablets by mouth daily first thing in the morning. (at least 30 min prior to breakfast or other meds) 90 Tablet 1 3 Active Insulin Glargine 100 UNIT/ML Subcutaneous Solution Pen-injector (Lantus) Inject 7 Units under the skin in the morning. 1 Each 0 3 Active Ondansetron 4 MG Oral Tablet Disintegrating (Zofran)Indications :Nausea DISSOLVE 1 TABLET ON TONGUE DIRECTED. 60 Tablet 0 3 Active Ondansetron 4 MG Oral Tablet Disintegrating (Zofran)Indications :Nausea dissolve on tongue. 60 Tablet 0 3 05/01/20 23 Discontinued Hospital, Clinic, or Other Facility Administered Medication Ordered Dose Route Frequency Start Date End Date Status albuterol sulfate (PROVENTIL) (2.5 MG/3ML) 0.083% inhalation solution 2.5 mgIndications:Tobacco use disorder,Bronchitis, complicated,Wheeze 2.5 mg NEBULIZER Q4H PRN 01/27/2019 Active documented as of this encounter (statuses as of 05/01/2023) Active Problems Problem Noted Date Type 2 [...] as of this encounter (statuses as of 05/01/2023) Resolved Problems Problem Noted Date Resolved Date [...] as of this encounter (statuses as of 05/01/2023) Immunizations Name Administration Dates Next Due Pneumococcal Polysaccharide PPV23 (Pneumovax) 06/29/2012,03/02/2009(Deferred: Contraindication - pt on prednisone taper) Seasonal Influenza, PF, 6 mo ns & Above, IM , (Flulaval) 08/05/2017 Seasonal Influenza, Split, I IV3, With [...] encounter Miscellaneous Notes * Telephone Encounter - Phong Diehl RPh - 05/01/2023 4:06 PM EDTSigned Prescriptions: Disp Refills Ondansetron 4 MG Oral Tablet Disintegratin*60 Tab*0 Sig: DISSOLVE 1 TABLET ON TONGUE DIRECTED.Authorizing Provider: LIONEL MEJIAS User: TUREL, JOSHU A documented in this encounter Plan of Treatment Upcoming Encounters Date Type Specialty Care Team Description 05/04/2023 Office Visit Family Medicine Lionel Mejias MD [address] [place] [address] Health Maintenance Due Date Last Done Comments DISCUSS TOBACCO CESSATION (REFER TO SMARTSET #5162) 1970 Hepatitis B (1 of 3 - [...] 9:42 AM 09/03/2007 5:34 PM Care Teams Commercial Pest Control Representative Relationship Specialty Start Date End Date Lionel Mejias MD [address] [place] [address] PCP - General Family Medicine 01/20/12 documented as of this encounter
--- OUTSIDE RECORDS SUMMARY | 2023-07-03 18:16 | External Medical Summary | Summary of Care ---
Author Name Unknown Organization [facility] Address [address] [place] [address] Phone [phone] Care Team Providers Care Share Holder Name Role Phone Timoteo Muniz MD Primary Care Provider +1- [phone] Reason for Visit * Reason Onset Date Comments Scan To Read 06/17/2023 Encounter Details Date Type Department Care Team (Late st Contact Info) Description 06/17/2023 Telephone [facility] [address] [place] [address] Timoteo Muniz MD [address] [place] [address] Scan To Read Allergies Active Allergy Reactions Criticality Noted Date [...] taking.Reported on 06/17/2023 Blood Glucose Monitoring Suppl ([employer]CH ULTRA SYSTEM) w/Device KITIndications:Guadalupe marko glucose Use as directed 4 times a day as needed (fluctuating sugar). Use up to four times a day as directed 1 Kit 0 08/05/2017 Active [email or web address] ULTRASOFT LANCETS MISCIndications:Elev ated glucose Use as directed 4 times a day as needed (fluctuating sugar). Use up to four times a day as directed 1 Box Dosing Unit 11 08/05/2017 Active Cholecalciferol (VITAMIN D3) 40573 units CapsuleIndications:V itamin D deficiency Take 1 Cap by mouth once a week. 4 Cap 3 10/06/2018 Active Additional Information Patient not taking.Reported on 12/03/2022 [employer]CH ULTRA BLUE STRPIndications:Elev ated glucose USE FOUR [...] encounter Miscellaneous Notes * Telephone Encounter - Steven Otero MD - 06/17/2023 2:08 PM EDT Retinal Scan Imaging Daiana Bhandari [id number] Retinal Scan Interpretation: There is no retinopathy in both eyes Diabetes Retinal Imaging Care Plan: The retinal scan results are normal - I will forward this encounter to the Ophthalmology DM Letter Pool [[id number]], they will send a normal retinal scan letter to the patient, and the patient will be seen back for a yearly scan. Steven Otero MD 06/17/2023 2:08 PM * Telephone Encounter - Ashleigh Jackson LPN - 06/17/2023 1:45 PM EDT A Diabetic Telemed Eye image was taken and requires your interpretation for Dr Arzola. Please check your inbasket for image. Patient prefers to be seen at [facility] if a follow-up appointment is needed. documented in this encounter Plan of Treatment Upcoming Encounters Date Type Department Care Team (Late st Contact Info) Description 07/10/2023 1:20 PM EST [facility] [address] [place] [address] [facility] [address] [place] [address] 08/07/2023 11:00 AM EST Office Visit [place] [facility] [address] [place] [phone] Parviz Arzola MD [address] [place] [address] 09/18/2023 1:00 PM EST Office Visit [place] [facility] [address] [place] [phone] Parviz Arzola MD [address], [place] [id number] Health Maintenance Due Date Last Done Comments DISCUSS TOBACCO CESSATION (REFER TO SMARTSET #5270) 1970 Hepatitis B (1 of 3 - [...] 9:42 AM 09/03/2007 5:34 PM Care Teams Share Holder Relationship Specialty Start Date End Date Timoteo Muniz MD [address] [facility] [place] [address] PCP - General Family Medicine 01/20/12 documented as of this encounter
--- OUTSIDE RECORDS SUMMARY | 2023-07-03 18:16 | External Medical Summary | Summary of Care ---
Author Name Unknown Organization [facility] Address [address] [place] [address] Phone [phone] Care Team Providers Care Movie Editor Name Role Phone Timoteo Muniz MD Primary Care Provider +1- [phone] Reason for Referral * Precert (Within 10 days (routine)) - Pending Review Specialty Diagnoses / Procedures Referred By Malachi marin Referred To Contact Radiology Diagnoses Abdominal pain, unspecified abdominal location Nausea Constipation, unspecified constipation type Procedures NM GASTRIC EMPTYING STUDY SOLID Steph Harding CRNP [address] [place] [address] Referral ID Status Reason Start Date Expiration Date V isits Requested Visits Authorized [id number] Pending Review 04/28/2023 999 999 Reason for Visit * Reason Onset Date Comments Appointment 12/01/2022 Encounter Details Date Type Department Care Team Description 12/01/2022 Telephone Gastroenterology, [facility] [address] [place] [address] Sofi Dooley CRNP [address] [place] [address] Appointment (/) Allergies Active Allergy Reactions Severity Noted Date Comments Acetaminophen Liver complications (Please comment) High 06/27/2011 Nsaids Edema face/lips/tongue Medium 02/16/2006 documented as of this encounter (statuses as of 05/01/2023) Medications Medication Sig Dispensed Refills Start Date End Date Status IMITREX STATDOSE REFILL 6 MG/0.5ML SUBQ SOLNIndications:Mi graine 0.5 ML 1 TIME ONLY 1 Syringe 5 3 Active Additional Information Patient not taking.Reported on 12/03/2022 aspirin enteric coated 81 MG TBEC Take 1 Tablet by mouth in the morning. 0 Active clotrimazole (LOTRIMIN) 1 % creamIndications:Y east infection Apply topically to affected area 2 times a day. To affacted area for two weeks. 24 g 1 7 Active Blood Glucose Monitoring Suppl ([employer] ULTRA SYSTEM) w/Device KITIndications:Maliha vated glucose Use as directed 4 times a day as needed (fluctuating sugar). Use up to four times a day as directed 1 Kit 0 7 Active [employer]CH ULTRASOFT LANCETS MISCIndications:El evated glucose Use as directed 4 times a day as needed (fluctuating sugar). Use up to four times a day as directed 1 Box Dosing Unit 11 7 Active Cholecalciferol (VITAMIN D3) 45960 units CapsuleIndications :Vitamin D deficiency Take 1 Cap by mouth once a week. 4 Cap 3 9 Active Additional Information Patient not taking.Reported on 12/03/2022 [employer] Corporation[employer]CH ULTRA BLUE STRPIndications:El evated glucose USE FOUR TIMES A DAY TO TEST SUGAR NEEDED 100 Strip 5 9 Active Spacer/Aero-Holdin g Chambers (OPTICHAMBER ADVANTAGE) MISCIndications:Br onchitis, complicated,Tobacc o use disorder,Wheeze use with MDI as directed 1 Each 0 9 Active albuterol-ipratrop ium (DUONEB) 2.5-0.5 MG/3ML nebulizer solutionIndication s:Bronchitis, complicated,Tobacc o use disorder,Wheeze Inhale 3 mL via nebulizer 4 times a day. 120 Vial 5 9 Active Betamethasone Dipropionate 0.05 % ointmentIndication s:Dermatitis apply to the hands twice daily as needed 45 g 2 0 Active FLOVENT HFA 110 MCG/ACT inhalerIndications :Bronchitis, complicated,Tobacc o use disorder,Wheeze INHALE 2 PUFFS BY MOUTH 2 TIMES A DAY 36 g 3 0 Active Additional Information Patient not taking.Reported on 12/03/2022 fluticasone (FLONASE) 50 MCG/ACT nasal sprayIndications:A cute sinusitis, recurrence not specified, unspecified location ADMINISTER [...] HFA 108 (90 Base) MCG/ACT Inhalation Aerosol SolutionIndication s:Bronchitis, complicated INHALE 2 PUFFS BY MOUTH EVERY 4 HOURS NEEDED FOR WHEEZING. 54 g 1 1 Active Polyethylene Glycol 3350 17 GM/SCOOP Oral Powder (Miralax)Indicatio ns:Irritable bowel syndrome DISSOLVE ONE HEAPING TABLESPOON IN 8 OZ OF WATER OR JUICE-1 OR 2 DOSES 2 TIMES DAILY 527 g 0 1 Active OneTouch Verio w/Device KitIndications:DM type 2, not at goal (HCC) Use up to 2 times a day E11.9 1 Kit 0 3 Active OneTouch Verio In Vitro Strip (Glucose Blood)Indications: DM type 2, not at goal (HCC) Use up to 2 times a day E11.9 100 Strip 11 3 Active Ondansetron 4 MG Oral Tablet Disintegrating (Zofran)Indication s:Nausea dissolve on tongue. 60 Tablet 0 3 Active mupirocin calcium (BACTROBAN) 2 % ointment APPLY TO AFFECTED AREA 3 TIMES A DAY FOR 14 DAYS. 22 g 0 8 023 Discontinued oxyCODONE (OXY IR) 5 MG immediate release tablet Take 5 mg by mouth every 4 hours as needed. 0 023 Discontinued(Me dication List Clean Up) predniSONE (DELTASONE) 10 MG TabletIndications: Acute pain of right shoulder,Elbow pain, right Take 5 tabs for 2 days, 4 tabs for 2 days, 3 tabs for 2 days, 2 tabs for 2 days 1 tab for 2 days 30 Tab 0 0 023 Discontinued(Me dication List Clean Up) Levothyroxine Sodium 112 MCG Oral Tablet (Levoxyl) TAKE 2 AND ONE-HALF TABLETS BY MOUTH THURSDAY THROUGH THURSDAY, AND 2 TABLETS ON THURSDAY AND THURSDAY. 72 Tablet 0 1 023 Discontinued(Re fill) Mupirocin 2 % External Ointment (Bactroban) APPLY TO AFFECTED AREA 3 TIMES A DAY FOR 14 DAYS. Strength: 2 % 22 g 0 3 023 Discontinued Levothyroxine Sodium 200 MCG Oral Tablet (Levoxyl) Take 1 Tablet by mouth in the morning. (at least 30 min prior to breakfast or other meds). 30 Tablet 11 3 023 Discontinued(Me dication List Clean Up) Hospital, Clinic, or Other Facility Administered Medication [...] 7.0% 11/28/2022 Food insecurity 03/25/2021 Overview: Per [facility] Protocol Chronic narcotic use 12/29/2018 [...] AGREEMENT 01/30/2005 013 Overview: Managed by Dr. Muniz. To view [...] ONYCHIA OF TOE, LATERAL RIGHT GREAT TOE 10/29/19 01 04/25/2004 INGROWING NAIL, SUSPECTED 10/28/20002003 Anal or rectal [...] encounter Miscellaneous Notes * Telephone Encounter - BROOK Oliveros - 05/01/2023 11:20 AM EDT LMOM for pt to call back to schedule * Addendum Note - NICO Juarez - 04/28/2023 9:11 AM EDT Addended by: STEPH HARDING on: 04/28/2023 09:11 AM Modules accepted: Orders * Telephone Encounter - NICO Juarez - 04/28/2023 9:09 AM EDT Pt readmitted Need op egd/colonoscopy, GES OP follow up after Plan: Nm gastric emptying study solid Egd, flexible, diagnostic Colonoscopy, diagnostic (rectum) NICO Roy 04/28/2023 9:09 AM * Telephone Encounter - BROOK Oliveros - 12/30/2022 9:18 AM EDT LMOM for pt to call back to schedule * Telephone Encounter - BROOK Oliveros - 12/11/2022 10:08 AM EDT Letter sent * Telephone Encounter - BROOK Oliveros - 12/09/2022 11:45 AM EDT Spoke to female in household, states that patient is currently indisposed and took down out number for pt to call back to schedule * Telephone Encounter - BROOK Oliveros - 12/01/2022 2:42 PM EDT LMOM for pt to call back to schedule * Telephone Encounter - NICO Carrasco - 12/01/2022 11:30 AM EDT Pt admitted at [facility] for abd pain, nausea wo vomiting. Hx of tobacco and chronic narcotic use, diabetes and hypothyroidism but not taking meds. She needs OP GI f/u. Pls call by end of week NICO Aguillon documented in this encounter Plan of Treatment Upcoming Encounters Date Type Specialty Care Team Description 05/04/2023 Office Visit Family Medicine Timoteo Muniz MD [address] [place] [address] Scheduled Orders Name Type Priority Associated Diagnoses Orde r Schedule EGD, FLEXIBLE, DIAGNOSTIC Procedures Routine Abdominal pain, unspecified abdominal location Nausea Constipation, unspecified constipation type Ordered: 04/28/2023 COLONOSCOPY, DIAGNOSTIC (RECTUM) Procedures Routine Abdominal pain, unspecified abdominal location Nausea Constipation, unspecified constipation type Ordered: 04/28/2023 NM GASTRIC EMPTYING STUDY SOLID Medical Imaging Routine Abdominal pain, unspecified abdominal location Nausea Constipation, unspecified constipation type Expected: 04/28/2023, Expires: 05/28/2024 Health Maintenance Due Date Last Done Comments DISCUSS TOBACCO CESSATION (REFER TO SMARTSET #4943) 1970 Hepatitis B (1 of 3 - [...] as of this encounter Visit Diagnoses Diagnosis Abdominal pain, unspecified abdominal location- Primary Nausea Nausea alone Constipation, unspecified constipation type documented in this encounter Advance Directives Latest Code Status on File Code Status Date Activated Date Inactivated Comments Full Code 09/06/2007 4:39 PM 09/08/2007 6:17 PM Code Status History Code Status Date Activated Date Inactivated Comments Full Code 09/06/2007 1:04 PM 09/06/2007 4:39 PM Full Code 09/02/2007 9:42 AM 09/03/2007 5:34 PM Care Teams Movie Editor Relationship Specialty Start Date End Date Timoteo Muniz MD [address] [place] [address] PCP - General Family Medicine 01/20/12 documented as of this encounter
--- OUTSIDE RECORDS SUMMARY | 2023-07-03 18:16 | External Medical Summary | Summary of Care ---
Author Name Unknown Organization [facility] Address [address] [place] [address] Phone [phone] Care Team Providers Care Rock Crusher Name Role Phone Lionel Mejias MD Primary Care Provider +1- [phone] Reason for Visit * Reason Onset Date Comments Medication Refill 06/09/2023 Encounter Details Date Type Department Care Team (Late st Contact Info) Description 06/09/2023 Refill [facility] [address] [place] [address] Lionel Mejias MD [address] [place] [address] Type 2 diabetes mellitus with hemoglobin A1c goal of less than 7.0% ([facility])*; Other specified hypothyroidism Allergies Active Allergy Reactions Criticality Noted Date Comments Acetaminophen Liver complications (Please comment) High 06/27/2011 Nsaids Edema face/lips/tongue Medium 02/16/2006 documented as of this encounter (statuses as of 06/11/2023) Medications Medication Sig Dispensed Refills Start Date [...] 1 08/05/2017 Active Blood Glucose Monitoring Suppl ([employer] ULTRA SYSTEM) w/Device KITIndications:Elev ated glucose Use as directed 4 times a day as needed (fluctuating sugar). Use up to four times a day as directed 1 Kit 0 08/05/2017 Active [employer] ULTRASOFT LANCETS MISCIndications:Maliha vated glucose Use as directed 4 times a day as needed (fluctuating sugar). Use up to four times a day as directed 1 Box Dosing Unit 11 08/05/2017 Active Cholecalciferol (VITAMIN D3) 95565 units CapsuleIndications: Vitamin D deficiency Take 1 Cap by mouth once a week. 4 Cap 3 10/06/2018 Active Additional Information Patient not taking.Reported on 12/03/2022 [email or web address].ComTOUCH ULTRA BLUE STRPIndications:Maliha vated glucose USE FOUR [...] 12/03/2022 fluticasone (FLONASE) 50 MCG/ACT nasal sprayIndications:Ac yomba shoshone sinusitis, recurrence not specified, unspecified location ADMINISTER [...] 180 Tablet 0 06/09/2023 09/07/19 24 Active Levothyroxine Sodium 112 MCG Oral Tablet (Levoxyl)Indication s:Other specified hypothyroidism Take 2 Tablets by mouth daily first thing in the morning. (at least 30 min prior to breakfast or other meds) 90 Tablet 1 01/13/2023 06/09/20 23 Discontinu ed(Refill) Hospital, Clinic, or Other Facility Administered Medication Ordered Dose Route Frequency Start Date End Date Status albuterol sulfate (PROVENTIL) (2.5 MG/3ML) 0.083% inhalation solution 2.5 mgIndications:Tobacco use disorder,Bronchitis, complicated,Wheeze 2.5 mg NEBULIZER Q4H PRN 01/27/2019 Active documented as of this encounter (statuses as of 06/11/2023) Active Problems Problem Noted Date Diagnosed Date [...] as of this encounter (statuses as of 06/11/2023) Resolved Problems Problem Noted Date Diagnosed Date Resolved Date Kidney disease, chronic, sta ge III (GFR 30-59 ml/min) 11/24/2017 12/29/2018 Overview: Per CKD protocol #1 Headache 06/29/2012 09/07/2012 Overview: ICD-10 update of inactive term Abdominal pain, left lower quadrant 09/13/2007 09/07/2012 ADVANCE DIRECTIVE INFORMATION 08/31/2007 12/29/2018 Overview: 4/9/08 No, Advance Directive brochure given to patient [...] as of this encounter (statuses as of 06/11/2023) Immunizations Name Administration Dates Next Due Pneumococcal [...] Miscellaneous Notes * Telephone Encounter - BROOK Vasques - 06/10/2023 2:13 PM EDT Patient scheduled. 06/10/2023 * Telephone Encounter - Lionel Mejias MD - 06/09/2023 4:56 PM EDTSigned Prescriptions: Disp Refills Levothyroxine Sodium 112 MCG Oral Tablet (*180 Ta*0 Sig: Take 2 Tablets by mouth daily first thing in the morning. (at least 30 min prior to breakfast or other meds) Authorizing Provider: LIONEL MEJIAS * Telephone Encounter - Lionel Mejias MD - 06/09/2023 4:54 PM EDT Refill sent - but - Please call pt. She was admitted in April with small bowel obstruction and has uncontrolled diabetes and uncontrolled thyroid disease. She did not keep the hospital follow up visit. She has not rescheduled. She should be set up for return visit and should come in for labs. * Telephone Encounter - Sandra Cruz LPN - 06/09/2023 2:40 PM EDT Please see Rx. Instructions say take 2 tablets in the morning?? documented in this encounter Plan of Treatment Upcoming Encounters Date Type Department Care Team (Late st Contact Info) Description 06/17/2023 1:20 PM EDT [facility] [place] [facility] [address] [facility] [address] December[facility]viz [facility] [address] [facility] [place] [address] 09/14/2023 9:20 AM EST [facility] [address] [facility] [address] Lionel [facility] [address] [facility] [place] [address] Scheduled Orders Name Type Priority Associated Diagnoses Orde r Schedule TSH WITH FREE T4 IF INDICATED Lab Routine Other specified hypothyroidism Expected: 06/09/2023 (Approximate), Expires: 06/08/2024 COMPREHENSIVE METABOLIC PANEL Lab Routine Type 2 diabetes mellitus with hemoglobin A1c goal of less than 7.0% (HCC) Expected: 06/09/2023 (Approximate), Expires: 06/08/2024 Health Maintenance Due Date Last Done Comments DISCUSS TOBACCO CESSATION (REFER TO SMARTSET #9074) 1970 Hepatitis B (1 of 3 - [...] 2023 08/05/2017, 06/29/2012, 06/17/2008 GFR 12/13/2023 12/12/2022, 0404/2023, 04/26/2021, Additional history exists TSH 02/06/2024 02/05/2023, 12/0 11/2018, 04/08/2019, Additional history exists Hepatitis C [...] goal of less than 7.0% (HCC)- Primary Other specified hypothyroidism documented in this encounter Advance Directives Latest Code Status on File Code Status Date Activated Date Inactivated Comments Full Code 09/06/2007 4:39 PM 09/08/2007 6:17 PM Code Status History Code Status Date Activated Date Inactivated Comments Full Code 09/06/2007 1:04 PM 09/06/2007 4:39 PM Full Code 09/02/2007 9:42 AM 09/03/2007 5:34 PM Care Teams Rock Crusher Relationship Specialty Start Date End Date Lionel Mejias MD [address] [place] [address] PCP - General Family Medicine 01/20/12 documented as of this encounter
--- OUTSIDE RECORDS SUMMARY | 2023-07-03 18:16 | External Medical Summary ---
Author Name Unknown Address Unknown Organization [id number]:[facility] [place] [address] [place] [address] Laboratory Report Ordering Provider Test Date Status MAGALIE FLOWERS 06/17/2023 14:27:38 Final Observation Date Value Abnormality Reference (Units ) Status TSH 06/17/2023 14:27:38 0.09 Below low normal 0.2 7-4.20 (uIU/mL) Final Performing Location [facility] [place] [address] [place] [address]
--- OUTSIDE RECORDS SUMMARY | 2023-07-03 18:16 | External Medical Summary ---
Author Name Unknown Address Unknown Organization [id number]:[facility] [place] - [facility] [place] [address] [facility] [address] Laboratory Report Ordering Provider Test Date Status 06/17/2023 14:27:38 Final Observation Date Value Abnormality Reference (Units ) Status HbA1C 06/17/2023 14:27:38 10.0 Above high normal 4. 0-5.6 (%) Final The use of HbA1c to monitor glycemic status is based on normal hemoglobin and HbA composition. This test should not be used in patients with abnormal hemoglobin that affects the half life of the red blood cell or the in vivo glycation rates. Glucose, estimated average 06/17/2023 14:27:38 240 Above high normal <126 (mg/dL) Fin al Performing Location [facility] [place] [facility] [address] [facility] [address]
--- OUTSIDE RECORDS SUMMARY | 2023-07-03 18:16 | External Medical Summary | Summary of Care ---
Author Name Unknown Organization [facility] Address [address] [place] [address] Phone [phone] Care Team Providers Care Construction Scheduler Name Role Phone Timoteo Muniz MD Primary Care Provider +1- [phone] Reason for Visit * Reason Onset Date Comments Hospital Follow-Up 04/30/2023 [facility] 04/29 Encounter Details Date Type Department Care Team Description 04/30/2023 Telephone Ancillary Department, [facility] [address] [place] [address] Beverly Mendez, RN Hospital Follow-Up ([facility] 04/29) Allergies Active Allergy Reactions Severity Noted Date Comments Acetaminophen Liver complications (Please comment) High 06/27/2011 Nsaids Edema face/lips/tongue Medium 02/16/2006 documented as of this encounter (statuses as of 04/30/2023) Medications Medication Sig Dispensed Refills Start Date [...] 1 08/05/2017 Active Blood Glucose Monitoring Suppl (Bright[employer] ULTRA SYSTEM) w/Device KITIndications:[place] marko glucose Use as directed 4 times a day as needed (fluctuating sugar). Use up to four times a day as directed 1 Kit 0 08/05/2017 Active [employer]storm ULTRASOFT LANCETS MISCIndications:Elev ated glucose Use as directed 4 times a day as needed (fluctuating sugar). Use up to four times a day as directed 1 Box Dosing Unit 11 08/05/2017 Active Cholecalciferol (VITAMIN D3) 13852 units CapsuleIndications:V itamin D deficiency Take 1 Cap by mouth once a week. 4 Cap 3 10/06/2018 Active Additional Information Patient not taking.Reported on 12/03/2022 [employer]storm ULTRA BLUE STRPIndications:Elev ated glucose USE FOUR [...] AND EVENING MEALS 90 Tab 0 2020 Active Mupirocin 2 % External Ointment (Bactroban) [...] day E11.9 100 Strip 11 12/01/2022 Active Ondansetron 4 MG Oral Tablet Disintegrating (Zofran)Indications: Nausea dissolve on tongue. 60 Tablet 0 12/01/2022 Active Magnesium Oxide 400 MG Oral [...] the morning. 1 Each 0 04/30/2023 Active Hospital, Clinic, or Other Facility Administered Medication Ordered Dose Route Frequency Start Date End Date Status albuterol sulfate (PROVENTIL) (2.5 MG/3ML) 0.083% inhalation solution 2.5 mgIndications:Tobacco use disorder,Bronchitis, complicated,Wheeze 2.5 mg NEBULIZER Q4H PRN 01/27/2019 Active documented as of this encounter (statuses as of 04/30/2023) Active Problems Problem Noted Date Type 2 [...] as of this encounter (statuses as of 04/30/2023) Resolved Problems Problem Noted Date Resolved Date [...] as of this encounter (statuses as of 04/30/2023) Immunizations Name Administration Dates Next Due Pneumococcal [...] encounter Miscellaneous Notes * Telephone Encounter - Beverly Mendez RN - 04/30/2023 1:38 PM EDT Transitions of Care Note Reason for Referral:Recent Admission Phone visit for follow up: ANA Admitted to: [facility], Date: 04/24 Discharged to: home, Date: 04/29 Diagnosis driving hospitalization: Small bowel obstruction. Source/Contact: Patient SUBJECTIVE Consent: Verbal consent for review of hospital discharge: Yes REVIEW OF SYSTEMS Patient/Other Reports: Current patient/caregiver problems or concerns: pt still having discomfort and not able to toleratePO. Separate TE sent to PCP CV: Denies problems Pulmonary: Denies problems Chills/Sweats/Fever:Denies chills/sweats Denies fever Appetite:Experiencing nausea, vomiting, burning, decreased appetite. She is not able to keep anything down. Working on sips of water and jello. If she is able to keep those down will increase to fullliquid. Current diet: clear liquid Bowel: frequent, loose stools Bladder: denies problems Wound (If applicable): N/A Pain:Location- abdominal cramping Taking dicyclomine and some tylenol Sleep:Frequent awakening FUNCTIONAL STATUS: ADL'S: Needs Assistance With:N/A as pt is independent IADL'S: Needs Assistance With:N/A as pt is independent Cognitive and Mental Health: denies problems, alert and oriented x 3, and able to communicate, understand instructions, process information. MEDICATION RECONCILIATION Medications: Discharge med list reviewed with patient or caregiver New medication(s) filled since hospitalization- Lantus insulin. Reports all medications taken as prescribed. Denies side effects OBJECTIVE ASSESSMENT Medication Risk Assessment: [facility] not [facility] Ins[facility]. They will have it for her today Did patient fail outpatient treatment? No Discharge instructions available for review? Yes PLAN Symptom Monitoring Interventions:Member/caregiver education - signs and symptoms to contact PrimaryCare (DO NOT DELETE-Three white symptoms patient is to report to PCP) 1. Worsening abd pain 2. Continued vomiting 3. fever Ornamental Metalwork DesignerSurgical Endoscopist of Care interventions/Action Plan: Medication reconciliation and 5 - 7 day follow-up with PCP in place - Date: 05/04 Educated on role of ANA completed with patient/caregiver. Educated patient/caregiver on patient right to have input on ANA plan of care. Verification of Home Health/DME if indicated: NO Identified Care Gaps: Yes Care Gaps closed this call: Appointment made or confirmed, Post discharge appointment, and Transition of Care follow-up communication Re-evaluation of Plan of Care and progress towards goals achievement: Patient education this visit: Verbal, as above Plan to follow-up as previously scheduled, instructed to call Primary Care Provider with change in symptoms or as needed before next follow-up, discharge needs met, verbalizes understanding and agrees with plan. Beverly Mendez RN documented in this encounter Plan of Treatment Upcoming Encounters Date Type Specialty Care Team Description 05/04/2023 Office Visit Family Medicine Timoteo Muniz MD [address] [place] [address] Health Maintenance Due Date Last Done Comments DISCUSS TOBACCO CESSATION (REFER TO SMARTSET #2810) 1970 Hepatitis B (1 of 3 - [...] 04/26/2021, Additional history exists TSH 02/06/2024 02/05/2023, 1211/2018, 04/08/2019, Additional history exists Hepatitis C Screening [...] 9:42 AM 09/03/2007 5:34 PM Care Teams Construction Scheduler Relationship Specialty Start Date End Date Timoteo Muniz MD [address] [place] [address] PCP - General Family Medicine 01/20/12 documented as of this encounter
--- OUTSIDE RECORDS SUMMARY | 2023-07-03 18:16 | External Medical Summary | Summary of Care ---
Author Name Unknown Organization [facility] Address [address] [place] [address] Phone [phone] Care Team Providers Care Corrections Nurse Name Role Phone Timoteo Muniz MD Primary Care Provider +1- [phone] Reason for Visit * Reason Onset Date Comments Hospital Follow-Up 04/30/2023 [facility] 04/29 Encounter Details Date Type Department Care Team Description 04/30/2023 Telephone Ancillary Department, [facility] [address] [place] [address] Beverly Mendez, RN Hospital Follow-Up ([facility] 04/29) Allergies Active Allergy Reactions Severity Noted [...] 1 08/05/2017 Active Blood Glucose Monitoring Suppl ([employer] ULTRA SYSTEM) w/Device KITIndications:[place] marko glucose Use as directed 4 times a day as needed (fluctuating sugar). Use up to four times a day as directed 1 Kit 0 08/05/2017 Active [employer] ULTRASOFT LANCETS MISCIndications:Elev ated glucose Use as directed 4 times a day as needed (fluctuating sugar). Use up to four times a day as directed 1 Box Dosing Unit 11 08/05/2017 Active Cholecalciferol (VITAMIN D3) 17899 units CapsuleIndications:V itamin D deficiency Take 1 Cap by mouth once a week. 4 Cap 3 10/06/2018 Active Additional Information Patient not taking.Reported on 12/03/2022 Con[employer] ULTRA BLUE STRPIndications:Elev ated glucose USE FOUR [...] visit for follow up: ANA Admitted to: [facility], Date: 04/24 Discharged to: home, Date: 04/29 [...] abd pain 2. Continued vomiting 3. fever Warp SplitterNutrition Aide of Care interventions/Action Plan: Medication reconciliation and [...] Family Medicine Timoteo Muniz MD [address] [place] [address] Health Maintenance Due Date Last Done Comments DISCUSS TOBACCO CESSATION (REFER TO SMARTSET #4431) 1970 Hepatitis B (1 of 3 - [...] 9:42 AM 09/03/2007 5:34 PM Care Teams Corrections Nurse Relationship Specialty Start Date End Date Timoteo Muniz MD [address] [place] [address] PCP - General Family Medicine 01/20/12 documented as of this encounter
--- OUTSIDE RECORDS SUMMARY | 2023-07-03 18:16 | External Medical Summary ---
Author Name Unknown Address Unknown Organization K01:[facility] [place] [address] [place] [address] Laboratory Report Ordering Provider Test Date Status MAGALIE FLOWERS 06/17/2023 14:27:38 Final Observation Date Value Abnormality Reference (Units ) Status T4, Free 06/17/2023 14:27:38 3.0 Above high normal 0. 9-1.7 (ng/dL) Final Performing Location [facility] [place] [address] [place] [address]
--- OUTSIDE RECORDS SUMMARY | 2023-07-03 18:16 | External Medical Summary | Summary of Care ---
Author Name Unknown Organization [facility] Address [address] [place] [address] Phone [phone] Care Team Providers Care Venetian Blind Washer Name Role Phone Timoteo Muniz MD Primary Care Provider +1- [phone] Reason for Referral * Precert (Within 10 days (routine)) - Pending Review Specialty Diagnoses / Procedures Referred By Malachi marin Referred To Contact Radiology Diagnoses Abdominal pain, unspecified abdominal location Nausea Constipation, unspecified constipation type Procedures NM GASTRIC EMPTYING STUDY SOLID Steph Harding CRNP [address] [place] [address] Referral ID Status Reason Start Date Expiration Date V isits Requested Visits Authorized [id number] Pending Review 04/28/2023 999 999 Reason for Visit * Reason Onset Date Comments Appointment 12/01/2022 Encounter Details Date Type Department Care Team Description 12/01/2022 Telephone Gastroenterology, [facility] [address] [place] [address] Sofi Dooley CRNP [address] [place] [address] Appointment (/) Allergies Active Allergy Reactions Severity Noted Date Comments Acetaminophen Liver complications (Please comment) High 06/27/2011 Nsaids Edema face/lips/tongue Medium 02/16/2006 documented as of this encounter (statuses as of 05/07/2023) Medications Medication Sig Dispensed Refills Start Date [...] 1 7 Active Blood Glucose Monitoring Suppl ([employer] ULTRA SYSTEM) w/Device KITIndications:[place] vated glucose Use as directed 4 times a day as needed (fluctuating sugar). Use up to four times a day as directed 1 Kit 0 7 Active [employer] ULTRASOFT LANCETS MISCIndications:El evated glucose Use as directed 4 times a day as needed (fluctuating sugar). Use up to four times a day as directed 1 Box Dosing Unit 11 7 Active Cholecalciferol (VITAMIN D3) 60654 units CapsuleIndications :Vitamin D deficiency Take 1 Cap by mouth once a week. 4 Cap 3 9 Active Additional Information Patient not taking.Reported on 12/03/2022 [employer]CH ULTRA BLUE STRPIndications:El evated glucose USE FOUR [...] day E11.9 100 Strip 11 3 Active mupirocin calcium (BACTROBAN) 2 % [...] 72 Tablet 0 1 023 Discontinued(Re fill) Ondansetron 4 MG Oral Tablet Disintegrating (Zofran)Indication s:Nausea dissolve on tongue. 60 Tablet 0 3 023 Discontinued Mupirocin 2 % External Ointment (Bactroban) APPLY [...] as of this encounter (statuses as of 05/07/2023) Active Problems Problem Noted Date Type 2 diabetes mellitus with hemoglobin A1c goal of less than 7.0% 11/28/2022 Food insecurity 03/25/2021 Overview: Per [facility] Protocol Chronic narcotic use 12/29/2018 Hx of hysterectomy 12/12/2013 LFT elevation 09/07/2012 Chronic rhinitis 02/28/2003 Tobacco use disorder 04/19/2002 COMMON MIGRAINE WITHOUT MENTION OF INTRA CTABLE MIGRAINE 12/28/2000 ADJ DISORDER W/DEPRES MOOD 10/23/1999 Irritable bowel syndrome 08/14/1999 Hypothyroidism 02/06/1999 documented as of this encounter (statuses as of 05/07/2023) Resolved Problems Problem Noted Date Resolved Date [...] as of this encounter (statuses as of 05/07/2023) Immunizations Name Administration Dates Next Due Pneumococcal [...] * Telephone Encounter - BROOK Oliveros - 05/07/2023 9:34 AM EDT LMOM for pt to call [...] 12/01/2022 11:30 AM EDT Pt admitted at [facility] for abd pain, nausea wo vomiting. Hx of tobacco and chronic narcotic use, diabetes and hypothyroidism but not taking meds. She needs OP GI f/u. Pls call by end of week NICO Aguillon documented in this encounter Plan of Treatment Scheduled Orders Name Type Priority Associated Diagnoses [...] Comments DISCUSS TOBACCO CESSATION (REFER TO SMARTSET #0335) 1970 Hepatitis B (1 of 3 - [...] 9:42 AM 09/03/2007 5:34 PM Care Teams Venetian Blind Washer Relationship Specialty Start Date End Date Timoteo Muniz MD [address] [place] [address] PCP - General Family Medicine 01/20/12 documented as of this encounter
--- OUTSIDE RECORDS SUMMARY | 2023-07-03 18:16 | External Medical Summary ---
Author Name Unknown Address Unknown Organization K01:[facility] [place] [address] [address] [facility] [address] Laboratory Report Ordering Provider Test Date Status 06/17/2023 14:27:38 Final Observation Date Value Abnormality Reference (Units ) Status WBC, Total 06/17/2023 14:27:38 10.24 4.00-10.80 (K/uL) Final RBC 06/17/2023 14:27:38 5.09 3.85-5.15 (M/uL) Final Hemoglobin 06/17/2023 14:27:38 14.7 12.0-15.3 (g/dL) Final HCT 06/17/2023 14:27:38 46.4 Above high normal 36.0-45.2 (%) Final MCV 06/17/2023 14:27:38 91.2 81.5-97.5 (fL) Final MCH 06/17/2023 14:27:38 28.9 27.0-34.0 (pg) Final MCHC 06/17/2023 14:27:38 31.7 32.0-36.0 (g/dL) Final RDW 06/17/2023 14:27:38 13.3 11.5-15.5 (%) Final Platelets 06/17/2023 14:27:38 319 140-400 (K/uL) Final MPV 06/17/2023 14:27:38 10.8 6.6-11.1 (fL) Final Nucleated erythrocytes/100 leukocytes [Ratio] in Blood by Automated count 06/17/2023 14:27:38 0 <=0 (/100 WBCs) Final Performing Location [facility] [place] [address] [facility] [address]
--- OUTSIDE RECORDS SUMMARY | 2023-07-03 18:16 | External Medical Summary | Summary of Care ---
Author Name Unknown Organization [facility] Address [address] [place] [address] Phone [phone] Care Team Providers Care Weigher Alloy Name Role Phone Timoteo Muniz MD Primary Care Provider +1- [phone] Reason for Referral * Precert (Within 10 days (routine)) - Pending Review Specialty Diagnoses / Procedures Referred By Malachi marin Referred To Contact Radiology Diagnoses Abdominal pain, unspecified abdominal location Nausea Constipation, unspecified constipation type Procedures NM GASTRIC EMPTYING STUDY SOLID Steph Harding CRNP [address] [place] [address] Referral ID Status Reason Start Date Expiration Date V isits Requested Visits Authorized [id number] Pending Review 04/28/2023 999 999 Reason for Visit * Reason Onset Date Comments Appointment 12/01/2022 Encounter Details Date Type Department Care Team Description 12/01/2022 Telephone Gastroenterology, [facility] [address] [place] [address] Sofi Dooley CRNP [address] [place] [address] Appointment (/) Allergies Active Allergy Reactions Severity Noted Date Comments Acetaminophen Liver complications (Please comment) High 06/27/2011 Nsaids Edema face/lips/tongue Medium 02/16/2006 documented as of this encounter (statuses as of 05/08/2023) Medications Medication Sig Dispensed Refills Start Date [...] 1 7 Active Blood Glucose Monitoring Suppl ([employer] ULTRA SYSTEM) w/Device KITIndications:[place] vated glucose Use as directed 4 times a day as needed (fluctuating sugar). Use up to four times a day as directed 1 Kit 0 7 Active [employer]CH ULTRASOFT LANCETS MISCIndications:El evated glucose Use as directed 4 times a day as needed (fluctuating sugar). Use up to four times a day as directed 1 Box Dosing Unit 11 7 Active Cholecalciferol (VITAMIN D3) 00706 units CapsuleIndications :Vitamin D deficiency Take 1 Cap by mouth once a week. 4 Cap 3 9 Active Additional Information Patient not taking.Reported on 12/03/2022 [employer]CH ULTRA BLUE STRPIndications:El evated glucose USE FOUR [...] as of this encounter (statuses as of 05/08/2023) Active Problems Problem Noted Date Type 2 diabetes mellitus with hemoglobin A1c goal of less than 7.0% 11/28/2022 Food insecurity 03/25/2021 Overview: Per [facility] Protocol Chronic narcotic use 12/29/2018 Hx of hysterectomy 12/12/2013 LFT elevation 09/07/2012 Chronic rhinitis 02/28/2003 Tobacco use disorder 04/19/2002 COMMON MIGRAINE WITHOUT MENTION OF INTRA CTABLE MIGRAINE 12/28/2000 ADJ DISORDER W/DEPRES MOOD 10/23/1999 Irritable bowel syndrome 08/14/1999 Hypothyroidism 02/06/1999 documented as of this encounter (statuses as of 05/08/2023) Resolved Problems Problem Noted Date Resolved Date [...] as of this encounter (statuses as of 05/08/2023) Immunizations Name Administration Dates Next Due Pneumococcal [...] * Telephone Encounter - BROOK Oliveros - 05/08/2023 11:01 AM EDT Letter sent * Telephone Encounter [...] 12/01/2022 11:30 AM EDT Pt admitted at [facility] for abd pain, nausea wo vomiting. Hx [...] Comments DISCUSS TOBACCO CESSATION (REFER TO SMARTSET #5209) 1970 Hepatitis B (1 of 3 - [...] 9:42 AM 09/03/2007 5:34 PM Care Teams Weigher Alloy Relationship Specialty Start Date End Date Timoteo Muniz MD [address] [place] [address] PCP - General Family Medicine 01/20/12 documented as of this encounter
--- OUTSIDE RECORDS SUMMARY | 2023-07-03 18:16 | External Medical Summary ---
Author Name Unknown Address Unknown Organization K01[place] [place] [address] [facility] [place] [address] Laboratory Report Ordering Provider Test Date Status 06/17/2023 14:27:38 Final Observation Date Value Abnormality Reference (Units ) Status Lipase 06/17/2023 14:27:38 60 13-60 (U/L ) Final Performing Location [facility]ATORY [facility] - [address] [place] [address]
--- OUTSIDE RECORDS SUMMARY | 2023-07-03 18:16 | External Medical Summary | Summary of Care ---
Author Name Unknown Organization [facility] Address [address] [place] [address] Phone [phone] Care Team Providers Care Preschool Director Name Role Phone Timoteo Muniz MD Primary Care Provider +1- [phone] Reason for Referral * Precert (Within 10 days (routine)) - Pending Review Specialty Diagnoses / Procedures Referred By Malachi marin Referred To Contact Radiology Diagnoses Abdominal pain, unspecified abdominal location Nausea Constipation, unspecified constipation type Procedures NM GASTRIC EMPTYING STUDY SOLID Steph Harding CRNP [address] [place] [address] Referral ID Status Reason Start Date Expiration Date V isits Requested Visits Authorized [id number] Pending Review 04/28/2023 999 999 Reason for Visit * Reason Onset Date Comments Appointment 12/01/2022 Encounter Details Date Type Department Care Team Description 12/01/2022 Telephone Gastroenterology, [facility] [address] [place] [address] Sofi Dooley CRNP [address] [place] [address] Appointment (/) Allergies Active Allergy Reactions Severity Noted Date Comments Acetaminophen Liver complications (Please comment) High 06/27/2011 Nsaids Edema face/lips/tongue Medium 02/16/2006 documented as of this encounter (statuses as of 05/27/2023) Medications Medication Sig Dispensed Refills Start Date [...] 1 7 Active Blood Glucose Monitoring Suppl ([employer] ULTRA SYSTEM) w/Device KITIndications:Maliha vated glucose Use as directed 4 times a day as needed (fluctuating sugar). Use up to four times a day as directed 1 Kit 0 7 Active [employer]UCH ULTRASOFT LANCETS MISCIndications:El evated glucose Use as directed 4 times a day as needed (fluctuating sugar). Use up to four times a day as directed 1 Box Dosing Unit 11 7 Active Cholecalciferol (VITAMIN D3) 97519 units CapsuleIndications :Vitamin D deficiency Take 1 Cap by mouth once a week. 4 Cap 3 9 Active Additional Information Patient not taking.Reported on 12/03/2022 [employer]UCH ULTRA BLUE STRPIndications:El evated glucose USE FOUR [...] DAYS. 22 g 0 8 023 Discontinued metFORMIN ER (GLUCOPHAGE XR) 500 MG TB24 TAKE ONE TABLET BY MOUTH 2 TIMES A DAY WITH MORNING AND EVENING MEALS 90 Tab 0 0 023 Discontinued(Re fill) oxyCODONE (OXY IR) 5 MG immediate release tablet Take 5 mg by mouth every 4 hours as needed. 0 023 Discontinued(Nm dication List Clean Up) predniSONE (DELTASONE) 10 [...] other meds). 30 Tablet 11 3 023 Discontinued(Nm dication List Clean Up) Hospital, Clinic, or Other Facility Administered Medication Ordered Dose Route Frequency Start Date End Date Status albuterol sulfate (PROVENTIL) (2.5 MG/3ML) 0.083% inhalation solution 2.5 mgIndications:Tobacco use disorder,Bronchitis, complicated,Wheeze 2.5 mg NEBULIZER Q4H PRN 01/27/2019 Active documented as of this encounter (statuses as of 05/27/2023) Active Problems Problem Noted Date Type 2 [...] as of this encounter (statuses as of 05/27/2023) Resolved Problems Problem Noted Date Resolved Date [...] as of this encounter (statuses as of 05/27/2023) Immunizations Name Administration Dates Next Due Pneumococcal [...] * Telephone Encounter - BROOK Oliveros - 05/27/2023 11:30 AM EDT LMOM for pt to call [...] solid Egd, flexible, diagnostic Colonoscopy, diagnostic (rectum) NCIO Roy 04/28/2023 9:09 AM * Telephone Encounter [...] 12/01/2022 11:30 AM EDT Pt admitted at [facility] for abd pain, nausea wo vomiting. [...] Comments DISCUSS TOBACCO CESSATION (REFER TO SMARTSET #3292) 1970 Hepatitis B (1 of 3 - [...] 9:42 AM 09/03/2007 5:34 PM Care Teams Preschool Director Relationship Specialty Start Date End Date Timoteo Muniz MD [address] [place] [address] PCP - General Family Medicine 01/20/12 documented as of this encounter
--- OUTSIDE RECORDS SUMMARY | 2023-07-03 18:17 | External Medical Summary | Summary of Care ---
Author Name Unknown Organization [facility] Address [address] [place] [address] Phone [phone] Care Team Providers Care Paper Ruler Name Role Phone Timoteo Muniz MD Primary Care Provider +1- [phone] Encounter Details Date Type Department Care Team Description 02/16/2023 [facility] [address] [place] [address] Timoteo Muniz MD [address] [place] [address] Type 2 diabetes mellitus with hemoglobin A1c goal of less than 7.0% ([facility])* Allergies Active Allergy Reactions Severity Noted Date Comments Acetaminophen Liver complications (Please comment) High 06/27/2011 Nsaids Edema face/lips/tongue Medium 02/16/2006 documented as of this encounter (statuses as of 02/16/2023) Medications Medication Sig Dispensed Refills Start Date [...] 1 08/05/2017 Active Blood Glucose Monitoring Suppl ([employer] ULTRA SYSTEM) w/Device KITIndications:[place] marko glucose Use as directed 4 times a day as needed (fluctuating sugar). Use up to four times a day as directed 1 Kit 0 08/05/2017 Active [employer] ULTRASOFT LANCETS MISCIndications:Elev ated glucose Use as directed 4 times a day as needed (fluctuating sugar). Use up to four times a day as directed 1 Box Dosing Unit 11 08/05/2017 Active Cholecalciferol (VITAMIN D3) 85794 units CapsuleIndications:V itamin D deficiency Take 1 Cap by mouth once a week. 4 Cap 3 10/06/2018 Active Additional Information Patient not taking.Reported on 12/03/2022 Coinalytics Co.UCH ULTRA BLUE STRPIndications:Elev ated glucose USE FOUR [...] other meds) 90 Tablet 1 01/13/2023 Active Hospital, Clinic, or Other Facility Administered Medication Ordered Dose Route Frequency Start Date End Date Status albuterol sulfate (PROVENTIL) (2.5 MG/3ML) 0.083% inhalation solution 2.5 mgIndications:Tobacco use disorder,Bronchitis, complicated,Wheeze 2.5 mg NEBULIZER Q4H PRN 01/27/2019 Active documented as of this encounter (statuses as of 02/16/2023) Active Problems Problem Noted Date Type 2 [...] as of this encounter (statuses as of 02/16/2023) Resolved Problems Problem Noted Date Resolved Date [...] as of this encounter (statuses as of 02/16/2023) Immunizations Name Administration Dates Next Due Pneumococcal Polysaccharide PPV23 (Pneumovax) 06/29/2012,03/02/2009(Deferred: Contraindication - pt on prednisone taper) Seasonal Influenza, Quadriva lent, No Preserve, 6 Mons & Above, IM 08/05/2017 Seasonal Influenza, Split, I IV3, With [...] on file documented as of this encounter Progress Notes * Timoteo Muniz MD - 02/16/2023 12:59 PM EDT I was 40 min late and pt left telemed visit without being seen. Timoteo Muniz MD documented in this encounter Plan of Treatment Upcoming Encounters Date Type Specialty Care Team Description 02/18/2023 Imaging Radiology Health Maintenance Due Date Last Done Comments DISCUSS TOBACCO CESSATION (REFER TO SMARTSET #3291) 1970 Hepatitis B (1 of 3 - 3-dose series) 1970 COVID-19 Vaccine (#1) 1970 Albumin/Creatinine Ratio 1989 DIABETES-EYE EXAM 1989 DIABETES-FOOT EXAM 1989 Pneumococcal Vaccine: Pediatrics (0 to 5 Years) and At-Risk Patients (6 to 64 Years) (2 - PCV) 06/29/2013 06/29/2012 Cologuard 02/10/2016 Colonoscopy 02/10/2016 12/08/2000 Colorectal Cancer Screening 02/10/2016 Fecal Occult Blood Test 02/10/2016 Sigmoidoscopy 02/10/2016 DTaP,Tdap,and Td Vaccines (2 - Td or Tdap) 11/24/2018 11/24/2008 Mammogram 03/22/2020 03/22/2019 Zoster Vaccines (1 of 2) 2021 Depression Screening, Annual for Pts 12 and Over 04/18/2021 04/18/2020 HbA1c 10/24/2021 04/26/2021, 08/18, 01/05/2018, Additional history exists Yearly B-12 04/26/2022 04/26/2021, 08/18, 09/04/2009 Lipid Panel [...] 9:42 AM 09/03/2007 5:34 PM Care Teams Paper Ruler Relationship Specialty Start Date End Date Timoteo Muniz MD [address] [place] [address] PCP - General Family Medicine 01/20/12 documented as of this encounter
--- OUTSIDE RECORDS SUMMARY | 2023-07-03 18:17 | External Medical Summary ---
Author Name Unknown Address Unknown Organization K01:[facility] - [address] [place] [address] Laboratory Report Ordering Provider Test Date Status 02/05/2023 10:49:11 Final Observation Date Value Abnormality Reference (Units ) Status TSH 02/05/2023 10:49:11 92.90 Above high normal 0. 27-4.20 (uIU/mL) Final Performing Location [facility] - [address] [place] [address]
--- OUTSIDE RECORDS SUMMARY | 2023-07-03 18:17 | External Medical Summary | Summary of Care ---
Author Name Unknown Organization [facility] Address [address] [place] [address] Phone [phone] Care Team Providers Care Daycare Assistant Name Role Phone Timoteo Muniz MD Primary Care Provider +1- [phone] Reason for Visit * Reason Onset Date Comments Test Results 2023 Encounter Details Date Type Department Care Team Description 2023 Telephone [facility] [address] [place] [facility] [place] [address] DecemberParviz MD [address] [place] [address] Test Results Allergies Active Allergy Reactions Severity Noted Date Comments Acetaminophen Liver complications (Please comment) High 06/27/2011 Nsaids Edema face/lips/tongue Medium 02/16/2006 documented as of this encounter (statuses as of 2023) Medications Medication Sig Dispensed Refills Start Date [...] 1 08/05/2017 Active Blood Glucose Monitoring Suppl ([employer] ULTRA SYSTEM) w/Device KITIndications:Julian marko glucose Use as directed 4 times a day as needed (fluctuating sugar). Use up to four times a day as directed 1 Kit 0 08/05/2017 Active LivemochaUCH ULTRASOFT LANCETS MISCIndications:Elev ated glucose Use as directed 4 times a day as needed (fluctuating sugar). Use up to four times a day as directed 1 Box Dosing Unit 11 08/05/2017 Active Cholecalciferol (VITAMIN D3) 93149 units CapsuleIndications:V itamin D deficiency Take 1 Cap by mouth once a week. 4 Cap 3 10/06/2018 Active Additional Information Patient not taking.Reported on 12/03/2022 NanoBioTOUCH ULTRA BLUE STRPIndications:Elev ated glucose USE FOUR [...] as of this encounter (statuses as of 2023) Active Problems Problem Noted Date Type 2 [...] as of this encounter (statuses as of 2023) Resolved Problems Problem Noted Date Resolved Date [...] as of this encounter (statuses as of 2023) Immunizations Name Administration Dates Next Due Pneumococcal [...] encounter Miscellaneous Notes * Telephone Encounter - Parviz Arzola MD - 2023 8:47 AM EDT Can we please call patient to see if she is currently taking any thyroid replacement. Lab work withTSH > 90 and low T4 is likely a result of no/missed doses. She should be taking 224 mcg daily per most recent notes. Parviz Arzola MD documented in this encounter Plan of Treatment Upcoming Encounters Date Type Specialty Care Team Description 02/16/2023 Office Visit Family Medicine Timoteo Muniz MD [address] [place] [address] Health Maintenance Due Date Last Done Comments DISCUSS TOBACCO CESSATION (REFER TO SMARTSET #4330) 1970 Hepatitis B (1 of 3 - [...] Panel 07/31/2022 07/31/2017 Influenza Vaccine (FLU shot) (Season Ended) 2023 08/05/2017, 06/29/2012, 06/17/2008 GFR 12/13/2023 12/12/2022, [...] 9:42 AM 09/03/2007 5:34 PM Care Teams Daycare Assistant Relationship Specialty Start Date End Date Timoteo Muniz MD [address] [place] [address] PCP - General Family Medicine 6/5/12 documented as of this encounter
--- OUTSIDE RECORDS SUMMARY | 2023-07-03 18:17 | External Medical Summary | Summary of Care ---
Author Name Unknown Organization [facility] Address [address] [place] [address] Phone [phone] Care Team Providers Care Park Attendant Name Role Phone Timoteo Muniz MD Primary Care Provider +1- [phone] Reason for Visit * Reason Comments Outpatient Testing Encounter Details Date Type Department Care Team Description 02/05/2023 Laboratory Laboratory, [facility] [address] [place] [address] [facility] [address] [place] [address] Other specified hypothyroidism Allergies Active Allergy Reactions Severity Noted Date Comments Acetaminophen Liver complications (Please comment) High 06/27/2011 Nsaids Edema face/lips/tongue Medium 02/16/2006 documented as of this encounter (statuses as of 02/05/2023) Medications Medication Sig Dispensed Refills Start Date [...] 1 08/05/2017 Active Blood Glucose Monitoring Suppl ([employer] ULTRA SYSTEM) w/Device KITIndications:[place] marko glucose Use as directed 4 times a day as needed (fluctuating sugar). Use up to four times a day as directed 1 Kit 0 08/05/2017 Active [employer] ULTRASOFT LANCETS MISCIndications:Elev ated glucose Use as directed 4 times a day as needed (fluctuating sugar). Use up to four times a day as directed 1 Box Dosing Unit 11 08/05/2017 Active Cholecalciferol (VITAMIN D3) 86499 units CapsuleIndications:V itamin D deficiency Take 1 Cap by mouth once a week. 4 Cap 3 10/06/2018 Active Additional Information Patient not taking.Reported on 12/03/2022 [employer] ULTRA BLUE STRPIndications:Elev ated glucose USE FOUR [...] as of this encounter (statuses as of 02/05/2023) Active Problems Problem Noted Date Type 2 [...] as of this encounter (statuses as of 02/05/2023) Resolved Problems Problem Noted Date Resolved Date [...] as of this encounter (statuses as of 02/05/2023) Immunizations Name Administration Dates Next Due Pneumococcal [...] Family Medicine Timoteo Muniz MD [address] [place] [address] Pending Results Name Type Priority Associated Diagnoses Date /Time TSH WITH FREE T4 IF INDICATED Lab Routine Other specified hypothyroidism 02/05/2023 10:49 AM EDT Health Maintenance Due Date Last Done Comments DISCUSS TOBACCO CESSATION (REFER TO SMARTSET #3715) 1970 Hepatitis B (1 of 3 - [...] or Tdap) 11/24/2018 11/24/2008 Mammogram 03/22/2020 03/22/2019 TSH 07/20/2020 07/20/2019, 03/18, 09/09/2018, Additional history exists Zoster Vaccines (1 of 2) 2021 Depression Screening, Annual for Pts 12 and Over 04/18/2021 04/18/2020 HbA1c 10/24/2021 04/26/2021, 08/18, 01/05/2018, Additional history exists Yearly B-12 04/26/2022 04/26/2021, 08/18, 09/04/2009 Lipid Panel 07/31/2022 07/31/2017 Influenza Vaccine (FLU shot) (Season Ended) 2023 08/05/2017, 06/29/2012, 06/17/2008 GFR 12/13/2023 12/12/2022, 11/15, 04/26/2021, Additional history exists Hepatitis C Screening Completed 08/05/2017 GARDASIL-HPV IMMUNIZATION SERIES Aged Out No longer eligible based on patient's age to complete this topic MENINGOCOCCAL (MENACTRA/MENVEO) Aged Out No longer eligible based on patient's age to complete this topic documented as of this encounter Medical Devices Not on filedocumented as of this encounter Visit Diagnoses Diagnosis Other specified hypothyroidism documented in this encounter Advance Directives Latest Code Status on File Code Status Date Activated Date Inactivated Comments Full Code 09/06/2007 4:39 PM 09/08/2007 6:17 PM Code Status History Code Status Date Activated Date Inactivated Comments Full Code 09/06/2007 1:04 PM 09/06/2007 4:39 PM Full Code 09/02/2007 9:42 AM 09/03/2007 5:34 PM Care Teams Park Attendant Relationship Specialty Start Date End Date Timoteo Muniz MD [address] [place] [address] PCP - General Family Medicine 01/20/12 documented as of this encounter
--- OUTSIDE RECORDS SUMMARY | 2023-07-03 18:17 | External Medical Summary | Summary of Care ---
Author Name Unknown Organization [facility] Address [address] [place] [address] Phone [phone] Care Team Providers Care Decal Maker Name Role Phone Timoteo Muniz MD Primary Care Provider +1- [phone] Encounter Details Date Type Department Care Team Description [facility] [address] [place] [address] Timoteo Muniz MD [address] [place] [address] Allergies Active Allergy Reactions Severity Noted Date Comments Acetaminophen Liver complications (Please comment) High 06/27/2011 Nsaids Edema face/lips/tongue Medium 02/16/2006 documented as of this encounter (statuses as of 02/06/2023) Medications Medication Sig Dispensed Refills Start Date [...] 1 08/05/2017 Active Blood Glucose Monitoring Suppl ([employer] ULTRA SYSTEM) w/Device KITIndications:Elev ated glucose Use as directed 4 times a day as needed (fluctuating sugar). Use up to four times a day as directed 1 Kit 0 08/05/2017 Active ApontadorTOUCH ULTRASOFT LANCETS MISCIndications:Maliha vated glucose Use as directed 4 times a day as needed (fluctuating sugar). Use up to four times a day as directed 1 Box Dosing Unit 11 08/05/2017 Active Cholecalciferol (VITAMIN D3) 54662 units CapsuleIndications: Vitamin D deficiency Take 1 Cap by mouth once a week. 4 Cap 3 10/06/2018 Active Additional Information Patient not taking.Reported on 12/03/2022 ApontadorTOUCH ULTRA BLUE STRPIndications:Maliha vated glucose USE FOUR [...] 12/03/2022 fluticasone (FLONASE) 50 MCG/ACT nasal sprayIndications:Ac anika [...] w/Device KitIndications:DM type 2, not at goal ([facility]) Use up to 2 times a day E11.9 1 Kit 0 12/01/2022 Active OneTouch Verio In Vitro Strip (Glucose Blood)Indications:D M type 2, not at goal ([facility]) Use up to 2 times a day E11.9 100 Strip 11 12/01/2022 Active Ondansetron 4 MG Oral Tablet Disintegrating (Zofran)Indications :Nausea dissolve on tongue. 60 Tablet 0 12/01/2022 Active Magnesium Oxide 400 MG Oral Tablet Take 1 Tablet by mouth daily. 0 12/01/2022 Active Levothyroxine Sodium 112 MCG Oral Tablet (Levoxyl) TAKE 2 AND ONE-HALF TABLETS BY MOUTH THURSDAY THROUGH THURSDAY, AND 2 TABLETS ON THURSDAY AND THURSDAY. 72 Tablet 0 07/01/2021 01/04/20 23 Discontinu ed(Refill) Levothyroxine Sodium 200 MCG Oral Tablet (Levoxyl) Take 1 Tablet by mouth in the morning. (at least 30 min prior to breakfast or other meds). 30 Tablet 11 11/28/2022 01/14/20 23 Discontinu ed(Medicat ion List Clean Up) Dicyclomine HCl 10 MG Oral Capsule (Bentyl) Take 1 Capsule by mouth 3 times a day as needed. 0 12/01/2022 01/03/20 23 Discontinu ed(Refill) Omeprazole 40 MG Oral Capsule Delayed Release (PriLOSEC)Indicatio ns:Abdominal pain, epigastric Take 1 Capsule by mouth in the morning. 1 hour before the first meal of the day. 30 Capsule 5 12/03/2022 12/27/19 Discontinu ed(Refill) Hospital, Clinic, or Other Facility Administered Medication Ordered Dose Route Frequency Start Date End Date Status albuterol sulfate (PROVENTIL) (2.5 MG/3ML) 0.083% inhalation solution 2.5 mgIndications:Tobacco use disorder,Bronchitis, complicated,Wheeze 2.5 mg NEBULIZER Q4H PRN 01/27/2019 Active documented as of this encounter (statuses as of 02/06/2023) Active Problems Problem Noted Date Type 2 [...] as of this encounter (statuses as of 02/06/2023) Resolved Problems Problem Noted Date Resolved Date [...] as of this encounter (statuses as of 02/06/2023) Immunizations Name Administration Dates Next Due Pneumococcal [...] Family Medicine Timoteo Muniz MD [address] [place] [address] Health Maintenance Due Date Last Done Comments DISCUSS TOBACCO CESSATION (REFER TO SMARTSET #0864) 1970 Hepatitis B (1 of 3 - [...] 9:42 AM 09/03/2007 5:34 PM Care Teams Decal Maker Relationship Specialty Start Date End Date Timoteo Muniz MD [address] [place] [address] PCP - General Family Medicine 01/20/12 documented as of this encounter
--- OUTSIDE RECORDS SUMMARY | 2023-07-03 18:17 | External Medical Summary | Summary of Care ---
Author Name Unknown Organization [facility] Address [address] [place] [address] Phone [phone] Care Team Providers Care Learning Officer Name Role Phone Timoteo Muniz MD Primary Care Provider +1- [phone] Reason for Visit * Reason Onset Date Comments Test Results 2023 Encounter Details Date Type Department Care Team Description 2023 Telephone [facility] [address] [place] [facility] [place] [address] DecemberParviz MD [address] [place] [address] Test Results Allergies Active Allergy Reactions Severity Noted Date Comments Acetaminophen Liver complications (Please comment) High 06/27/2011 Nsaids Edema face/lips/tongue Medium 02/16/2006 documented as of this encounter (statuses as of 02/10/2023) Medications Medication Sig Dispensed Refills Start Date [...] 1 08/05/2017 Active Blood Glucose Monitoring Suppl ([employer] ULTRA SYSTEM) w/Device KITIndications:[place] marko glucose Use as directed 4 times a day as needed (fluctuating sugar). Use up to four times a day as directed 1 Kit 0 08/05/2017 Active AeroFSUCH ULTRASOFT LANCETS MISCIndications:Elev ated glucose Use as directed 4 times a day as needed (fluctuating sugar). Use up to four times a day as directed 1 Box Dosing Unit 11 08/05/2017 Active Cholecalciferol (VITAMIN D3) 20753 units CapsuleIndications:V itamin D deficiency Take 1 Cap by mouth once a week. 4 Cap 3 10/06/2018 Active Additional Information Patient not taking.Reported on 12/03/2022 innocutisTOUCH ULTRA BLUE STRPIndications:Elev ated glucose USE FOUR [...] as of this encounter (statuses as of 02/10/2023) Active Problems Problem Noted Date Type 2 [...] as of this encounter (statuses as of 02/10/2023) Resolved Problems Problem Noted Date Resolved Date [...] as of this encounter (statuses as of 02/10/2023) Immunizations Name Administration Dates Next Due Pneumococcal [...] encounter Miscellaneous Notes * Telephone Encounter - Skye Seaman LPN - 02/10/2023 8:29 AM EDT Provider to address: Dr ratliff Reason for Call: Test Results Contact: Telephone Call Contact Type: Test Results Outcome: called pt. No answer. Unable to leave message. Sent MYG requesting pt to call for message. Total Time including non face to face (minutes): 10 * Telephone Encounter - Anali Washington LPN - 2023 3:11 PM EDT Attempted to call pt no answer recording "Were sorry the green party you dialed is not accepting calls at this time" * Telephone Encounter - Parviz Ratliff MD - 2023 8:47 AM EDT Can we please call patient to see if she is currently taking any thyroid replacement. Lab work withTSH > 90 and low T4 is likely a result of no/missed doses. She should be taking 224 mcg daily per most recent notes. Parviz Ratliff MD documented in this encounter Plan of Treatment Upcoming Encounters Date Type Specialty Care Team Description 02/16/2023 Office Visit Family Medicine Timoteo Muniz MD [address] [place] [address] Health Maintenance Due Date Last Done Comments DISCUSS TOBACCO CESSATION (REFER TO SMARTSET #7059) 1970 Hepatitis B (1 of 3 - [...] 9:42 AM 09/03/2007 5:34 PM Care Teams Learning Officer Relationship Specialty Start Date End Date Timoteo Muniz MD [address] [place] [address] PCP - General Family Medicine 01/20/12 documented as of this encounter
--- OUTSIDE RECORDS SUMMARY | 2023-07-03 18:17 | External Medical Summary | Summary of Care ---
Author Name Unknown Organization [facility] Address [address] [place] [address] Phone [phone] Care Team Providers Care Vet Assistant Name Role Phone Timoteo Muniz MD Primary Care Provider +1- [phone] Reason for Visit * Reason Onset Date Comments Test Results 2023 Encounter Details Date Type Department Care Team Description 2023 Telephone [facility] [address] [place] [facility] [address] DecemberParviz MD [address] [place] [address] Test Results Allergies Active Allergy [...] 1 08/05/2017 Active Blood Glucose Monitoring Suppl ([employer] ULTRA SYSTEM) w/Device KITIndications:[place] marko glucose Use as directed 4 times a day as needed (fluctuating sugar). Use up to four times a day as directed 1 Kit 0 08/05/2017 Active Six ApartUCH ULTRASOFT LANCETS MISCIndications:Elev ated glucose Use as directed 4 times a day as needed (fluctuating sugar). Use up to four times a day as directed 1 Box Dosing Unit 11 08/05/2017 Active Cholecalciferol (VITAMIN D3) 62844 units CapsuleIndications:V itamin D deficiency Take 1 Cap by mouth once a week. 4 Cap 3 10/06/2018 Active Additional Information Patient not taking.Reported on 12/03/2022 WoofoundTOUCH ULTRA BLUE STRPIndications:Elev ated glucose USE FOUR [...] encounter Miscellaneous Notes * Telephone Encounter - Anali Washington LPN - 2023 3:11 PM EDT Attempted to call pt no answer recording "Were sorry the constitution party you dialed is not accepting calls at this time" * Telephone Encounter - Parviz Arzola MD [...] Office Visit Family Medicine Timoteo Muniz MD [facility] [address] Health Maintenance Due Date Last Done Comments DISCUSS TOBACCO CESSATION (REFER TO SMARTSET #0429) 1970 Hepatitis B (1 of 3 - [...] 9:42 AM 09/03/2007 5:34 PM Care Teams Vet Assistant Relationship Specialty Start Date End Date Timoteo Muniz MD [address] [place] [address] PCP - General Family Medicine 01/20/12 documented as of this encounter
--- OUTSIDE RECORDS SUMMARY | 2023-07-03 18:17 | External Medical Summary | Summary of Care ---
Author Name Unknown Organization [facility] Address [address] [facility] [place] [address] Phone [phone] Care Team Providers Care Food Checkers And Cashiers Supervisor Name Role Phone Timoteo Muniz MD Primary Care Provider +1- [phone] Reason for Visit * Reason Onset Date Comments Follow Up 02/16/2023 Encounter Details Date Type Department Care Team Description 02/16/2023 Telephone [facility] [address] [place] [address] Timoteo Muniz MD [address] [place] [address] Follow Up Allergies Active Allergy Reactions Severity Noted Date Comments Acetaminophen Liver complications (Please comment) High 06/27/2011 Nsaids Edema face/lips/tongue Medium 02/16/2006 documented as of this encounter (statuses as of 02/18/2023) Medications Medication Sig Dispensed Refills Start Date [...] 1 08/05/2017 Active Blood Glucose Monitoring Suppl (Georgina Goodman ULTRA SYSTEM) w/Device KITIndications:[place] marko glucose Use as directed 4 times a day as needed (fluctuating sugar). Use up to four times a day as directed 1 Kit 0 08/05/2017 Active Georgina [employer] ULTRASOFT LANCETS MISCIndications:Elev ated glucose Use as directed 4 times a day as needed (fluctuating sugar). Use up to four times a day as directed 1 Box Dosing Unit 11 08/05/2017 Active Cholecalciferol (VITAMIN D3) 30853 units CapsuleIndications:V itamin D deficiency Take 1 Cap by mouth once a week. 4 Cap 3 10/06/2018 Active Additional Information Patient not taking.Reported on 12/03/2022 Dine MarketUCH ULTRA BLUE STRPIndications:Elev ated glucose USE FOUR [...] as of this encounter (statuses as of 02/18/2023) Active Problems Problem Noted Date Type 2 [...] as of this encounter (statuses as of 02/18/2023) Resolved Problems Problem Noted Date Resolved Date [...] as of this encounter (statuses as of 02/18/2023) Immunizations Name Administration Dates Next Due Pneumococcal [...] * Telephone Encounter - BROOK Vasques - 02/18/2023 9:06 AM EDT LMOM to reschedule. 02/18/2023 * Telephone Encounter - Timoteo Muniz MD - 02/16/2023 1:00 PM EDT I was over 40 min late and pt left telemed visit today without being seen - please contact and offer to reschedule. documented in this encounter Plan of Treatment Upcoming Encounters Date Type Specialty Care Team Description 02/24/2023 Imaging Radiology Health Maintenance Due Date Last [...] 9:42 AM 09/03/2007 5:34 PM Care Teams Food Checkers And Cashiers Supervisor Relationship Specialty Start Date End Date Timoteo Muniz MD [address] [place] [address] PCP - General Family Medicine 01/20/12 documented as of this encounter
--- OUTSIDE RECORDS SUMMARY | 2023-07-03 18:17 | External Medical Summary | Summary of Care ---
Author Name Unknown Organization [facility] Address [address] [place] [address] Phone [phone] Care Team Providers Care Nanotechnology Engineering Technologist Name Role Phone Timoteo Muniz MD Primary Care Provider +1- [phone] Reason for Referral * Precert (Within 10 days (routine)) - Pending Review Specialty Diagnoses / Procedures Referred By Malachi marin Referred To Contact Radiology Diagnoses Abdominal pain, unspecified abdominal location Nausea Constipation, unspecified constipation type Procedures NM GASTRIC EMPTYING STUDY SOLID Steph Harding CRNP [address] [place] [address] Referral ID Status Reason Start Date Expiration Date V isits Requested Visits Authorized [id number] Pending Review 04/28/2023 999 999 Reason for Visit * Reason Onset Date Comments Appointment 12/01/2022 Encounter Details Date Type Department Care Team Description 12/01/2022 Telephone Gastroenterology, [facility] [address] [place] [address] Sofi Dooley CRNP [address] [place] [address] Appointment (/) Allergies Active Allergy Reactions Severity Noted Date Comments Acetaminophen Liver complications (Please comment) High 06/27/2011 Nsaids Edema face/lips/tongue Medium 02/16/2006 documented as of this encounter (statuses as of 04/28/2023) Medications Medication Sig Dispensed Refills Start Date [...] 1 7 Active Blood Glucose Monitoring Suppl (Wundrbar ULTRA SYSTEM) w/Device KITIndications:Maliha vated glucose Use as directed 4 times a day as needed (fluctuating sugar). Use up to four times a day as directed 1 Kit 0 7 Active triptapUCH ULTRASOFT LANCETS MISCIndications:El evated glucose Use as directed 4 times a day as needed (fluctuating sugar). Use up to four times a day as directed 1 [address] Dosing [address] 11 7 Active Cholecalciferol (VITAMIN D3) 05441 units CapsuleIndications :Vitamin D deficiency Take 1 Cap by mouth once a week. 4 Cap 3 9 Active Additional Information Patient not taking.Reported on 12/03/2022 triptapUCH ULTRA BLUE STRPIndications:El evated glucose USE FOUR [...] as of this encounter (statuses as of 04/28/2023) Active Problems Problem Noted Date Type 2 diabetes mellitus with hemoglobin A1c goal of less than 7.0% 11/28/2022 Food insecurity 03/25/2021 Overview: Per [facility] Protocol Chronic narcotic use 12/29/2018 Hx of hysterectomy 12/12/2013 LFT elevation 09/07/2012 Chronic rhinitis 02/28/2003 Tobacco use disorder 04/19/2002 COMMON MIGRAINE WITHOUT MENTION OF INTRA CTABLE MIGRAINE 12/28/2000 ADJ DISORDER W/DEPRES MOOD 10/23/1999 Irritable bowel syndrome 08/14/1999 Hypothyroidism 02/06/1999 documented as of this encounter (statuses as of 04/28/2023) Resolved Problems Problem Noted Date Resolved Date [...] as of this encounter (statuses as of 04/28/2023) Immunizations Name Administration Dates Next Due Pneumococcal [...] encounter Miscellaneous Notes * Addendum Note - NICO Juarez - [...] 12/01/2022 11:30 AM EDT Pt admitted at [facility] for abd pain, nausea [...] Comments DISCUSS TOBACCO CESSATION (REFER TO SMARTSET #[id number]) 1970 Hepatitis B (1 of 3 - [...] 9:42 AM 09/03/2007 5:34 PM Care Teams Nanotechnology Engineering Technologist Relationship Specialty Start Date End Date Timoteo Muniz MD [address] [place] [address] PCP - General Family Medicine 01/20/12 documented as of this encounter
--- OUTSIDE RECORDS SUMMARY | 2023-07-03 18:17 | External Medical Summary ---
Author Name Unknown Address Unknown Organization K01:[facility] - [address] [place] [address] Laboratory Report Ordering Provider Test Date Status 02/05/2023 10:49:11 Final Observation Date Value Abnormality Reference (Units ) Status T4, Free 02/05/2023 10:49:11 0.7 Below low normal 0.9 -1.7 (ng/dL) Final Performing Location LAB[facility]ATORY [facility] - [address] [place] [address]
--- OUTSIDE RECORDS SUMMARY | 2023-07-03 18:17 | External Medical Summary | Summary of Care ---
Author Name Unknown Organization [facility] Address [address] [place] [facility] [place] [address] Phone [phone] Care Team Providers Care Broadcast Chief Engineer Name Role Phone Timoteo Muniz MD Primary Care Provider [phone]- [phone] Reason for Visit * Reason Onset Date Comments Follow Up 02/16/2023 Encounter Details Date Type Department Care Team Description 02/16/2023 Telephone [facility] [address] [place] [address] Timoteo Muniz MD [address] [place] [address] Follow Up Allergies Active Allergy Reactions Severity Noted Date Comments Acetaminophen Liver complications (Please comment) High 06/27/2011 Nsaids Edema face/lips/tongue Medium 02/16/2006 documented as of this encounter (statuses as of 02/19/2023) Medications Medication Sig Dispensed Refills Start Date [...] 1 08/05/2017 Active Blood Glucose Monitoring Suppl (Wetradetogether ULTRA SYSTEM) w/Device KITIndications:Pollock marko glucose Use as directed 4 times a day as needed (fluctuating sugar). Use up to four times a day as directed 1 Kit 0 08/05/2017 Active Wetradetogether ULTRASOFT LANCETS MISCIndications:Elev ated glucose Use as directed 4 times a day as needed (fluctuating sugar). Use up to four times a day as directed 1 Box Dosing Unit 11 08/05/2017 Active Cholecalciferol (VITAMIN D3) 61301 units CapsuleIndications:V itamin D deficiency Take 1 Cap by mouth once a week. 4 Cap 3 10/06/2018 Active Additional Information Patient not taking.Reported on 12/03/2022 Reflect SystemsUCH ULTRA BLUE STRPIndications:Elev ated glucose USE FOUR [...] as of this encounter (statuses as of 02/19/2023) Active Problems Problem Noted Date Type 2 [...] as of this encounter (statuses as of 02/19/2023) Resolved Problems Problem Noted Date Resolved Date [...] as of this encounter (statuses as of 02/19/2023) Immunizations Name Administration Dates Next Due Pneumococcal [...] * Telephone Encounter - BROOK Vasques - 02/19/2023 3:33 PM EDT LMOM. Letter sent. 02/19/2023 * Telephone Encounter - BROOK Vasques - [...] 9:42 AM 09/03/2007 5:34 PM Care Teams Broadcast Chief Engineer Relationship Specialty Start Date End Date Timoteo Muniz MD [address] [place] [address] PCP - General Family Medicine 01/20/12 documented as of this encounter
--- OUTSIDE RECORDS SUMMARY | 2023-07-03 18:17 | External Medical Summary | Summary of Care ---
Author Name Unknown Organization [facility] Address [address] [place] [address] Phone [phone] Care Team Providers Care Grocery Team Member Name Role Phone Timoteo Muniz MD Primary Care Provider +1- [phone] Reason for Visit * Reason Onset Date Comments Test Results 2023 Encounter Details Date Type Department Care Team Description 2023 Telephone [facility] [address] [place] [facility] [place] [address] DecemberParviz MD [address] [place] [address] Test Results Allergies Active Allergy Reactions Severity Noted Date Comments Acetaminophen Liver complications (Please comment) High 06/27/2011 Nsaids Edema face/lips/tongue Medium 02/16/2006 documented as of this encounter (statuses as of 02/11/2023) Medications Medication Sig Dispensed Refills Start Date [...] 1 08/05/2017 Active Blood Glucose Monitoring Suppl (GlycoVaxyn ULTRA SYSTEM) w/Device KITIndications:Freedom marko glucose Use as directed 4 times a day as needed (fluctuating sugar). Use up to four times a day as directed 1 Kit 0 08/05/2017 Active iFormularyUCH ULTRASOFT LANCETS MISCIndications:Elev ated glucose Use as directed 4 times a day as needed (fluctuating sugar). Use up to four times a day as directed 1 Box Dosing Unit 11 08/05/2017 Active Cholecalciferol (VITAMIN D3) 44020 units CapsuleIndications:V itamin D deficiency Take 1 Cap by mouth once a week. 4 Cap 3 10/06/2018 Active Additional Information Patient not taking.Reported on 12/03/2022 Wind Energy DirectTOUCH ULTRA BLUE STRPIndications:Elev ated glucose USE FOUR [...] as of this encounter (statuses as of 02/11/2023) Active Problems Problem Noted Date Type 2 [...] as of this encounter (statuses as of 02/11/2023) Resolved Problems Problem Noted Date Resolved Date [...] as of this encounter (statuses as of 02/11/2023) Immunizations Name Administration Dates Next Due Pneumococcal [...] Miscellaneous Notes * Telephone Encounter - Wendy Fajardo LPN - 02/11/2023 3:53 PM EDT Attempted to call pt no answer recording "Were sorry the green party you dialed is not accepting calls at this time" Left message with pt's mother to have pt call the office back 3 attempts were made Letter sent Dr. Muniz - pt has appt with you 02/16/23 - * Telephone Encounter - Skye Seaman LPN [...] Family Medicine Timoteo Muniz MD [address] [place] [address] Health Maintenance Due Date Last Done Comments DISCUSS TOBACCO CESSATION (REFER TO SMARTSET #3755) 1970 Hepatitis B (1 of 3 - [...] 9:42 AM 09/03/2007 5:34 PM Care Teams Grocery Team Member Relationship Specialty Start Date End Date Timoteo Muniz MD [address] [place] [address] PCP - General Family Medicine 01/20/12 documented as of this encounter
[2023-07-03] MEDS: METOCLOPRAMIDE HCL INJ 5 MG/ML 2 ML VIAL IV PRN (20:59)
[2023-07-03] MEDS: MAGNESIUM CHLORIDE W/CALCIUM 64MG DELAYED REL TAB PO SCH (21:01)
[2023-07-03] MEDS: ENOXAPARIN INJ 40 MG/0.4 ML SYR SQ SCH (21:01)
[2023-07-04] MEDS: HYDROmorphone INJ 0.5 MG/0.5 ML SYR IV PRN ×2 (03:42→09:55)
[2023-07-04] MEDS: METOCLOPRAMIDE HCL INJ 5 MG/ML 2 ML VIAL IV PRN ×2 (03:42→09:56)
[2023-07-04] MEDS: PANTOprazole 40 MG TAB PO SCH (05:55)
[2023-07-04] MEDS: LEVOTHYROXINE SODIUM 200 MCG TABLET PO SCH (05:55)
[2023-07-04 07:36] LABS: Hematocrit (blood only) 39.4 % (37.0-47.0); Hemoglobin 13.2 g/dl (12.0-16.0); Mean Corpuscular Hemoglobin 28.3 pg (25.0-34.0); Mean Corpuscular Hgb Conc 33.5 g/dL (32.0-36.0); Mean Corpuscular Volume 84.4 fL (80.0-100.0); Platelet Count 236 K/uL (130-400); RDW Coefficient of Variation 12.9 % (11.5-14.5); RDW Standard Deviation 39.5 fL (36.4-46.3); Red Blood Count 4.67 M/uL (4.20-5.40); White Blood Count 5.39 K/ul (4.8-10.8)
[2023-07-04 08:02] LABS: Calcium 8.1 mg/dl (8.6-10.3); Magnesium 1.6 mg/dl (1.7-2.4); Potassium 3.7 mmol/L (3.5-5.1)
[2023-07-04 08:07] LABS: BUN Creatinine Ratio 15.2 (10-20); Creatinine Clr Calc Pharmacy 76.2 ml/min; Est GFR (African American) 75.9 ml/min; Est GFR (Non-African American) 65.5 ml/min
[2023-07-04] MEDS: INSULIN ASPART PER UNIT CHARGE SC SCH ×2 (09:11→12:50)
[2023-07-04] MEDS: LANTUS PER UNIT CHARGE SC SCH (09:12)
[2023-07-04] MEDS: MAGNESIUM CHLORIDE W/CALCIUM 64MG DELAYED REL TAB PO SCH (09:12)
[2023-07-04] MEDS ORDERED: HYDROmorphone INJ 0.5 MG/0.5 ML SYR IV PRN (10:13)
--- NOTE | 2023-07-04 14:00 | Hospitalist Progress Note ---
Date of Service July 04, 2023 Assessment & Plan (1) Abdominal pain: Plan: 53-year-old female with past medical history significant for type 2 diabetes, hypothyroidism, chronic rhinitis, COPD, irritable bowel syndrome, migraine, presents with ongoing nausea ,vomiting and abdominal pain. Abdominal pain DD: Gastroparesis Nausea and vomiting, Diarrhea H/O partial small bowel obstruction --CT ABD: Hepatic steatosis. No acute abnormality in the abdomen and pelvis. --S/P EGD:Normal esophagus. Z-line regular, 36 cm from the incisors. Normal stomach. Biopsied. Normal examined duodenum. Biopsied. --Normal Lipase Needs outpatient colonoscopy and gastric emptying study Appreciate GI input Minimize IV narcotics use as able Continue PPI Check stool studies if recurrence of diarrhea Tolerates low fiber diet KUB on 07/03/23 showed nonobstructive bowel gas pattern Advised gastroparesis diet Needs follow-up with gastroenterology upon discharge Acute kidney injury--POA Resolved Received IV fluids Monitor renal function Avoid nephrotoxic agents as able Hypomagnesemia Hypokalemia Replete electrolytes as needed Monitor DM II HbA1C:9.1 Continue insulin per protocol Monitor BGs Hypothyroidism Continue levothyroxine H/O COPD Stable Continue home inhalers DVT Px: Lovenox SQ Code Status Full code Disposition Home Admission and Anticipated Discharge Date Admission Date: July 01, 2023 Subjective Patient is seen and examined at bedside No new complaints Tolerating low fiber diet Abdominal pain improved Was nauseous overnight but better today Denies any chest pain, dyspnea To discharge home today Review of Systems Review of Systems: All systems reviewed & are unremarkable except as noted in Subjective Physical Exam Physical Exam: Physical Exam: Vitals signs as noted above General Appearance:Moderately built and nourished, no apparent distress Head: normocephalic, Atraumatic Eyes: normal inspection, EOMI Neck: supple, Trachea midline Respiratory/Chest: Normal breath sounds, CTA, No accessory muscle use Cardiovascular: S1, S2, No murmur Abdomen/GI:Soft, mild tender, Bowel sounds present Extremities/Musculoskeletal:normal inspection, no edema Neurologic/Psych:AAOX3, grossly no focal neurological deficits Skin: normal color, warm Results & Data Results & Data Vital Signs (Past 12 Hours) Vital Signs Temp Pulse Resp BP Pulse Ox O2 Del Method 07/04/23 07:54 36.6 C 60 16 146/83 H 96 Room Air Laboratory Results Short CBC 07/04/23 Range/Units 06:15 WBC 5.39 (4.8-10.8) K/ul Hgb 13.2 (12.0-16.0) g/dl Hct 39.4 (37.0-47.0) % Plt Count 236 (130-400) K/uL BMP 07/04/23 06:15 Sodium 140 Potassium 3.7 Chloride 106 Carbon Dioxide 27 BUN 15 Creatinine 0.99 Glucose 121 H Calcium 8.1 L (1) Abdominal pain Abdominal location: generalized Qualified Code(s): R10.84 - Generalized abdominal pain
--- NOTE | 2023-07-04 14:07 | Discharge Summary ---
Date of Service July 04, 2023 Admission HPI Per Admitting Provider 53-year-old female with past medical history significant for type 2 diabetes, hypothyroidism, chronic rhinitis, COPD, irritable bowel syndrome, migraine, presents with ongoing nausea ,vomiting and abdominal pain. She says she is having lot abdominal cramps. Any movement causing cramps get worse. Able to tolerate crackers but not able to eat much. Bentyl not helping much. Has some headache. Vision is okay. No runny nose. Has sore throat from vomiting. Sometimes has chest pains. No shortness of breath. Since last 1 week she did not had a normal bowel movement. After anything she eats in 10 minutes she feels like going to bathroom but has only small amount of bowel movement. Hemodynamic stable Past med history. As mentioned above. Past surgical history. Dental surgery. External hemorrhoidectomy. Fulguration of minimal endometriosis. Left fulguration of oviducts. Laparoscopic lysis of adhesions. Laparoscopic oophorectomy. Removal of foreign body. Laparoscopic appendectomy. Laparoscopic cholecystectomy. Total abdominal hysterectomy with removal of tubes. Social history. Smokes half pack a day for 5 years. Alcohol occasional. No drug use. Family history. Maternal aunt had breast cancer. Maternal grandmother had breast cancer. Mother had breast cancer. Paternal grandmother had diabetes. Father has hypertension. Maternal aunt has ovarian cancer. Admission Exam Per Admitting Provider General- Not in distress. Head- atraumatic Eyes- PERRL. ENT- oropharynx clear Neck- supple, no JVD. Lungs- clear to auscultation no wheezing or crackles Heart- regular rhythm; no murmur, no gallop. Abdomen- sluggish bowel sounds, soft, diffuse tender no distension Extremities- no pretibial edema, no erythema Neuro- alert, oriented x 3; PERRL, no facial palsy; no dysarthria; moves extremities. Skin- warm & dry Principal Diagnosis Gastroparesis Acute kidney injury Hypomagnesemia Hypokalemia Discharge Data Allergies Allergy/AdvReac Type Severity Reaction Status Date / Time nabumetone Allergy Intermediate swelling Verified 07/01/23 18:24 NSAIDS (Non-Steroidal Allergy Intermediate SWELLING Verified 07/01/23 18:24 Anti-Inflamma acetaminophen AdvReac Intermediate VOMITING, Verified 07/01/23 18:24 RASH--RAISES LIVER ENZYMES Consultations 07/02/23 08:00 Consult Gastroenterology Routine Procedures Performed Operation Date: 07/02/23 16:45 Actual Procedures p EGD Biopsy Cytology - Matilde Garzon DO Laboratory Results WBC 5.39 K/ul (4.8-10.8) 07/04/23 06:15 RBC 4.67 M/uL (4.20-5.40) 07/04/23 06:15 Hgb 13.2 g/dl (12.0-16.0) 07/04/23 06:15 Hct 39.4 % (37.0-47.0) 07/04/23 06:15 MCV 84.4 fL (80.0-100.0) 07/04/23 06:15 MCH 28.3 pg (25.0-34.0) 07/04/23 06:15 MCHC 33.5 g/dL (32.0-36.0) 07/04/23 06:15 RDW Std Deviation 39.5 fL (36.4-46.3) 07/04/23 06:15 RDW Coeff of Adolfo 12.9 % (11.5-14.5) 07/04/23 06:15 Plt Count 236 K/uL (130-400) 07/04/23 06:15 MPV 10.0 fL (9.4-12.4) 07/04/23 06:15 Immature Gran % (Auto) 0.2 % 07/02/23 05:45 Neut % (Auto) 57.0 % 07/02/23 05:45 Lymph % (Auto) 32.0 % 07/02/23 05:45 Orange % (Auto) 7.9 % 07/02/23 05:45 Eos % (Auto) 1.8 % 07/02/23 05:45 Baso % (Auto) 1.1 % 07/02/23 05:45 Neut # (Auto) 3.25 K/uL (1.40-6.50) 07/02/23 05:45 Lymph # (Auto) 1.82 K/uL (1.20-3.40) 07/02/23 05:45 Orange # (Auto) 0.45 K/uL (0.11-0.59) 07/02/23 05:45 Eos # (Auto) 0.10 K/uL (0.00-0.50) 07/02/23 05:45 Baso # (Auto) 0.06 K/uL (0.00-0.20) 07/02/23 05:45 Immature Gran # (Auto) 0.01 K/uL (0.01-0.20) 07/02/23 05:45 Sodium 140 mmol/L (136-145) 07/04/23 06:15 Potassium 3.7 mmol/L (3.5-5.1) 07/04/23 06:15 Chloride 106 mmol/L (98-107) 07/04/23 06:15 Carbon Dioxide 27 mmol/L (21-32) 07/04/23 06:15 Anion Gap 7 (3-11) 07/04/23 06:15 BUN 15 mg/dl (6-23) 07/04/23 06:15 Creatinine 0.99 mg/dl (0.6-1.2) 07/04/23 06:15 Est Cr Clr Drug Dosing 76.2 ml/min 07/04/23 06:15 Est GFR ( Amer) 75.9 ml/min 07/04/23 06:15 Est GFR (Non-Af Amer) 65.5 ml/min 07/04/23 06:15 BUN/Creatinine Ratio 15.2 (10-20) 07/04/23 06:15 Glucose 121 mg/dl (70-99(Fasting)) H 07/04/23 06:15 POC Glucose 137 mg/dl (70-99) H 07/04/23 12:07 Estimat Average Glucose 214 mg/dl 07/02/23 05:45 Hemoglobin A1c 9.1 % (4.5-5.6) H 07/02/23 05:45 Calcium 8.1 mg/dl (8.6-10.3) L 07/04/23 06:15 Magnesium 1.6 mg/dl (1.7-2.4) L 07/04/23 06:15 Total Bilirubin 0.5 mg/dl (0.2-1.0) 07/01/23 15:37 AST 14 U/L (13-39) 07/01/23 15:37 ALT 21 U/L (7-52) 07/01/23 15:37 Alkaline Phosphatase 89 U/L (34-104) 07/01/23 15:37 Total Protein 8.0 gm/dl (6.0-8.3) 07/01/23 15:37 Albumin 4.8 gm/dl (3.4-5.0) 07/01/23 15:37 Globulin 3.2 gm/dl (2.5-4.0) 07/01/23 15:37 Albumin/Globulin Ratio 1.5 (0.9-2) 07/01/23 15:37 Lipase 48 U/L (11-82) 07/01/23 15:37 Urine Color Yellow 07/01/23 16:20 Urine Appearance Clear (Clear) 07/01/23 16:20 Urine pH 5.0 (4.5-7.5) 07/01/23 16:20 Ur Specific [place] 1.026 (1.000-1.030) 07/01/23 16:20 Urine Protein Trace (Negative) H 07/01/23 16:20 Urine Glucose (UA) Negative (Negative) 07/01/23 16:20 Urine Ketones Negative (Negative) 07/01/23 16:20 Urine Blood 1+ (Negative) H 07/01/23 16:20 Urine Nitrite Negative (Negative) 07/01/23 16:20 Urine Bilirubin Negative (Negative) 07/01/23 16:20 Urine Urobilinogen Negative (Negative) 07/01/23 16:20 Ur Leukocyte Esterase Negative (Negative) 07/01/23 16:20 Urine RBC 0-4 /hpf (0-4) 07/01/23 16:20 Urine WBC 0-5 /hpf (0-5) 07/01/23 16:20 Ur Epithelial Cells 0-5 /lpf (0-5) 07/01/23 16:20 Uric Acid Crystals Present (None Prsent) A 07/01/23 16:20 Urine Bacteria Negative (Negative) 07/01/23 16:20 Urine Opiates Screen Pos (Neg) H 07/02/23 Unknown Ur Methadone, Qual Neg (Neg) 07/02/23 Unknown Urine Barbiturates Neg (Neg) 07/02/23 Unknown Ur Phencyclidine (PCP) Neg (Neg) 07/02/23 Unknown U Amphetamin/Meth Scrn Pos (Neg) H 07/02/23 Unknown MDMA (Ecstasy) Screen Neg (Neg) 07/02/23 Unknown U Benzodiazepines Scrn Neg (Neg) 07/02/23 Unknown Ur Cocaine Metabolite Neg (Neg) 07/02/23 Unknown U Marijuana (THC) Screen Neg (Neg) 07/02/23 Unknown Impressions Abdomen/Pelvis CT 07/01/23 17:50 Exam(s): CT ABDOMEN + PELVIS Without Contrast EXAM: CT Abdomen and Pelvis Without Intravenous Contrast CLINICAL HISTORY: Reason for exam: poss obstruc. TECHNIQUE: Axial computed tomography images of the abdomen and pelvis without intravenous contrast. CTDI is 26.72 mGy and DLP is 1303.93 mGy-cm. Automated exposure control was utilized for the study. A dose lowering technique was utilized adhering to the principles of ALARA. COMPARISON: CT abdomen/pelvis on 04/24/2023 FINDINGS: Lung bases: Unremarkable. No mass. No consolidation. ABDOMEN: Liver: Hepatic steatosis. Gallbladder and bile ducts: Unremarkable. No calcified stones. No ductal dilation. Pancreas: Unremarkable. No ductal dilation. Spleen: Unremarkable. No splenomegaly. Adrenals: Unremarkable. No mass. Kidneys and ureters: Unremarkable. No hydronephrosis or stone. Stomach and bowel: Evaluation of the stomach is limited by underdistention. No mucosal thickening. No bowel obstruction or inflammation. No small bowel obstruction. PELVIS: Appendix: Prior appendectomy. Bladder: Unremarkable. No stones. Reproductive: Prior hysterectomy. ABDOMEN and PELVIS: Intraperitoneal space: Unremarkable. No free air. No significant fluid collection. Bones/joints: Degenerative changes of the spine. No acute fracture. No dislocation. Soft tissues: Unremarkable. Vasculature: Unremarkable. No abdominal aortic aneurysm. Lymph nodes: Unremarkable. No enlarged lymph nodes. IMPRESSION: Hepatic steatosis. No acute abnormality in the abdomen and pelvis. Electronically signed by: Tyrone Rivero M.D. 07/01/23 19:31 PM KUB X-Ray 07/03/23 13:39 KUB HISTORY: Generalized abdominal pain. COMPARISON: Abdomen and pelvis CT 07/01/2023. FINDINGS: The bowel gas pattern is unremarkable. There are no dilated loops of small bowel to suggest an obstruction. No renal calculi. No ureteral calculi. Calcifications in the deep pelvis likely represent phleboliths. These remain unchanged. Prior appendectomy. Prior cholecystectomy. The visualized lung bases are clear. No pneumoperitoneum or pneumatosis. IMPRESSION: Nonobstructive bowel gas pattern. ACT 112: Negative or not required by law. Electronically signed by: Stephen Sanchez M.D. 07/03/2023 3:11 PM Ordered Studies 07/01/23 17:50 CT abd pelvis wo con Stat Hospital Course (1) Abdominal pain: 53-year-old female with past medical history significant for type 2 diabetes, hypothyroidism, chronic rhinitis, COPD, irritable bowel syndrome, migraine, presents with ongoing nausea ,vomiting and abdominal pain. Abdominal pain DD: Gastroparesis Nausea and vomiting, Diarrhea H/O partial small bowel obstruction --CT ABD: Hepatic steatosis. No acute abnormality in the abdomen and pelvis. --S/P EGD:Normal esophagus. Z-line regular, 36 cm from the incisors. Normal stomach. Biopsied. Normal examined duodenum. Biopsied. --Normal Lipase Needs outpatient colonoscopy and gastric emptying study Appreciate GI input Minimize IV narcotics use as able Continue PPI Check stool studies if recurrence of diarrhea Tolerates low fiber diet KUB on 07/03/23 showed nonobstructive bowel gas pattern Advised gastroparesis diet Needs follow-up with gastroenterology upon discharge Acute kidney injury--POA Resolved Received IV fluids Monitor renal function Avoid nephrotoxic agents as able Hypomagnesemia Hypokalemia Replete electrolytes as needed Monitor DM II HbA1C:9.1 Continue insulin per protocol Monitor BGs Hypothyroidism Continue levothyroxine H/O COPD Stable Continue home inhalers DVT Px: Lovenox SQ Code Status Full code Disposition Home Total Time Total Time Spent Total Time Spent (In Minutes): 56 minutes Discharge Plan Discharge Items Patient Disposition: Home - Self-Care Reason For Visit: ABDOMINAL PAIN, N/V Discharge Diagnosis: Gastroparesis Acute kidney injury Hypomagnesemia Hypokalemia Condition on Discharge: Fair Activity: Per Instructions section Exercise/Sports: Gradually increase as tolerated Non-emergency contact: Primary Care Provider and Wing Commander Call non-emergency contact if: you have any medication questions, your symptoms worsen, your pain is concerning for you and you have a fever Follow-up/Referrals: Timoteo Muniz MD [Primary Care Provider] - Dietitian Info: Gastroparesis diet Diet: Carb Consistent or DM2 and Low Fiber Addtl Attending Provider Instructions: Follow-up with your primary care physician in 1 week Follow-up with your tile erector Dr. Garzon for outpatient colonoscopy and gastric emptying study as advised. Seek immediate medical attention if your symptoms reoccur or worsen Please take all medications as instructed on discharge list below. Please call if you have any questions or problems. You can reach a [facility] hospitalist on duty at [facility] 24 hours a day by calling [phone] Pending Studies at Discharge: No Stand-Alone Forms: My [facility], Smoking Cessation Medications and DC Order Prescriptions: New Mag 64 64 mg Tablet,Delayed Release (Dr/Ec) 64 mg PO BID Qty: 60 0RF metoclopramide HCl [Reglan] 5 mg tablet 5 mg PO TID PRN (Reason: nausea and vomiting) Qty: 20 0RF Continued mupirocin 2 % ointment 1 applic TOPICAL BID PRN (Reason: irritation) Rx Instructions: Apply to hands (DME) OneTouch Verio test strips Strip See Rx Instructions .Route Qty: 100 0RF Rx Instructions: As directed. Check blood glucose twice a day omeprazole 40 mg capsule,delayed release(DR/EC) 40 mg PO DAILYBB ondansetron 4 mg tablet,disintegrating 4 mg translingual DIRECTED PRN (Reason: NAUSEA/VOMITING) dicyclomine 10 mg Capsule 10 mg PO TID PRN (Reason: abdominal pain) Qty: 20 0RF (DME) OneTouch Verio test strips Strip See Rx Instructions .Route Qty: 100 0RF Rx Instructions: As directed (DME) lancets [OneTouch Delica Plus Lancet] 33 gauge misc See Rx Instructions .Route Qty: 100 0RF Rx Instructions: As directed (DME) pen needle, diabetic [Pen Needle] 32 gauge x 5/32" needle See Rx Instructions .Route Qty: 100 0RF Rx Instructions: As directed levothyroxine 200 mcg tablet 200 mcg PO DAILYBB albuterol sulfate 90 mcg/actuation HFA aerosol inhaler 2 puff INHALATION DIRECTED PRN (Reason: Shortness Of Breath Or Wheezing) betamethasone dipropionate 0.05 % ointment 1 applic TOPICAL DIRECTED PRN (Reason: Skin Irritation) fluticasone propionate 50 mcg/actuation spray,suspension 1 spray INTRANASAL DAILY PRN (Reason: Congestion) metformin 500 mg tablet extended release 24 hr 1,000 mg PO BID insulin glargine 100 unit/mL (3 mL) insulin pen 20 unit subcut QAM Discharge Orders: Discharge Order (Routine); Ordered 07/04/23 Ordered By: Mamadou Desir Admission Data Admit Date/Time: 07/01/23 22:06 Attending Provider: Mamadou Desir Admit Provider: Hubert Guidry Primary Care Provider: Timoteo Muniz Other Providers: Sage Moon; Yfn Rapp; Purnima Shepherd; Ana Moscoso; Sruthi Plata; Re Marin; Sienna Gallegossim; Jairo Cortes; Matilde Garzon; Coleman Weston; Sabiha Gibbs; Colt Mirza; Steph Harding; Pamela Deal; Sofi Dooley; Blanquita Fulton; George Wyatt; Pedro Luis Weaver; Jon Lerner; Nafisa Vargas; Bryant Simmons Jr
[2023-07-04 15:36] LABS: Amphetamine Urine, Confirm 2475 ng/mL (<250); Codeine Urine NEGATIVE ng/mL (<50); Hydrocodone Urine NEGATIVE ng/mL (<50); Hydromor Urine 1150 ng/mL (<50); Methamphetamine, Ur Confirm 10710 ng/mL (<250); Morphine Urine 3700 ng/mL (<50); Norhydrocodone Conf Ur NEGATIVE ng/mL (<50); Noroxycodone Urine NEGATIVE ng/mL (<50); Oxycodone Urine NEGATIVE ng/mL (<50); Oxymorph Urine NEGATIVE ng/mL (<50)
== END 2023-07-04 15:58 | disposition home or self-care (01) | DRG 74 ==
LOC: ED 13:39 → SUATTDRO 22:06 → 3W 22:06

== ENCOUNTER 2023-10-18 20:31 | Observation (INO) ==
--- OUTSIDE RECORDS SUMMARY | 2023-10-18 20:36 | External Medical Summary | Summary of Care ---
Author Name Unknown Organization [facility] Address [address] [facility] [place] [address] Phone [phone] Care Team Providers Care Fabrication Mig Welder Name Role Phone Lionel Mejias MD Primary Care Provider [phone] Reason for Visit * Reason Comments eRx-Medication Refill Encounter Details Date Type Department Care Team (Late st Contact Info) Description 08/29/2023 Refill [facility] [address] [place] [place] [address] Lionel Mejias MD [address] [place] [address] DM type 2 nursing care encounter (HCC) Allergies Active Allergy Reactions Criticality Noted Date Comments Acetaminophen Liver complications (Please comment) High 06/27/2011 Nsaids Edema face/lips/tongue Medium 02/16/2006 documented as of this encounter (statuses as of 08/31/2023) Medications Medication Sig Dispensed Refills Start Date [...] taking.Reported on 06/17/2023 Blood Glucose Monitoring Suppl (Mobile Armor ULTRA SYSTEM) w/Device KITIndications:Elev ated glucose Use as directed 4 times a day as needed (fluctuating sugar). Use up to four times a day as directed 1 Kit 0 7 Active Mobile Armor ULTRASOFT LANCETS MISCIndications:Maliha vated glucose Use as directed 4 times a day as needed (fluctuating sugar). Use up to four times a day as directed 1 Box Dosing Unit 11 7 Active Mobile Armor ULTRA BLUE STRPIndications:Maliha vated glucose USE FOUR [...] A DAY 36 g 3 0 Active Typeformuch Verio w/Device KitIndications:DM type 2, not at goal (HCC) Use up to 2 times a day E11.9 1 Kit 0 3 Active Magnesium Oxide 400 MG Oral [...] for Cramping. 30 Capsule 2 3 Active Gabapentin 300 MG Oral Capsule [...] 14 DAYS. 22 g 0 3 Active Additional Information Patient not taking.Reported on 07/13/2023 Vitamin D3 1.25 MG (98614 UT) Oral CapsuleIndications: Vitamin D deficiency Take 1 Capsule by mouth once a week. 4 Capsule 3 3 Active Additional Information Patient not taking.Reported on 07/13/2023 Betamethasone Dipropionate 0.05 % External OintmentIndications :Dermatitis [...] TONGUE DIRECTED. 60 Tablet 0 3 Active Fluticasone Propionate 50 MCG/ACT Nasal Suspension (Flonase)Indication s:Acute sinusitis, recurrence not specified, unspecified location Administer 2 Sprays into each nostril in the morning. 48 g 0 3 Active Insulin Glargine 100 UNIT/ML Subcutaneous Solution Pen-injector (Lantus)Indications :Type 2 diabetes mellitus with hemoglobin A1c goal of less than 7.0% ([facility]) Inject 24 Units under the skin in the morning. 9 mL 11 3 Active OneTouch Verio In Vitro Strip (Glucose Blood)Indications:D M type 2, not at goal (HCC) Use up to 4 times a day E11.9 300 Strip 11 3 Active metFORMIN HCl ER 500 MG Oral Tablet Extended Release 24 Hour (Glucophage XR)Indications:DM type 2 nursing care encounter (HCC) TAKE 2 TABLETS BY MOUTH PER DAY 60 Tablet 5 4 Active metFORMIN HCl ER 500 MG Oral Tablet Extended Release 24 Hour (Glucophage XR)Indications:DM type 2 nursing care encounter ([facility]) TAKE 2 BY MOUTH PER DAY 60 Tablet 0 3 08/31/19 24 Discontinued Hospital, Clinic, or Other Facility Administered Medication Ordered Dose Route Frequency Start Date End Date Status albuterol sulfate (PROVENTIL) (2.5 MG/3ML) 0.083% inhalation solution 2.5 mgIndications:Tobacco use disorder,Bronchitis, complicated,Wheeze 2.5 mg NEBULIZER Q4H PRN 01/27/2019 Active documented as of this encounter (statuses as of 08/31/2023) Active Problems Problem Noted Date Diagnosed Date [...] as of this encounter (statuses as of 08/31/2023) Resolved Problems Problem Noted Date Diagnosed Date [...] as of this encounter (statuses as of 08/31/2023) Immunizations Name Administration Dates Next Due Pneumococcal Conjugate Vacci ne, 20-valent ([id number]) 08/07/2023 Pneumococcal Polysaccharide PPV23 (Pneumovax) 06/29/2012,03/02/2009(Deferred: Contraindication - pt on prednisone taper) Seasonal Influenza, PF, 6 M & above, IM , (FluLaval or Fluzone) 08/05/2017 Seasonal Influenza, Split, I IV3, With [...] Telephone Encounter - Lionel Mejias MD - 08/31/2023 12:50 PM ESTSigned Prescriptions: Disp Refills metFORMIN HCl ER 500 MG Oral Tablet Extend*60 Tab*5 Sig: TAKE 2 TABLETS BY MOUTH PER DAYAuthorizing Provider: LIONEL MEJIAS * Telephone Encounter - Phong Diehl [facility] - 08/31/2023 11:13 AM ESTPending Prescriptions: Disp Refills metFORMIN HCl ER 500 MG Oral Tablet Extend*60 Tab*0 Sig: TAKE 2 TABLETS BY MOUTH PER DAY * Telephone Encounter - Phong Diehl RP - 08/31/2023 11:10 AM EST Unable to authorize medication refills for pended medication(s) at this time. Part of the protocol criteria used for refill authorization was not satisfied. Patient's A1C is above protocol parameters. Has not followed with [facility] Please approve if appropriate. Thanks, Tico Diehl, PharmD Clinical Pharmacist [facility] ([facility] [phone] 08/31/2023 11:11 AM documented in this encounter Plan of Treatment Scheduled Procedures Name Priority Associated Diagnoses Date/Ti me COLONOSCOPY FLEXIBLE PROXIMA L DIAGNOSTIC Recall History of colonic polyps Health Maintenance Due Date Last Done Comments DISCUSS TOBACCO CESSATION (REFER TO SMARTSET #3251) 1971 Hepatitis B (1 of 3 - 3-dose series) 1971 COVID-19 Vaccine (#1) 1971 Albumin/Creatinine Ratio 1989 Alpha-1 Antitrypsin 1989 DTaP,Tdap,and Td Vaccines (2 - Td or [...] 06/17/2024 06/17/2023, 11/16, 12/03/2022, Additional history exists TSH 06/17/2024 06/17/2023, 01/16, 07/20/2019, Additional history exists O2 ASSESSMENT COMPLETED IN PAST YEAR FOR COPD 07/14/2024 07/14/2023 COLONOSCOPY-EVERY 5 YRS AGES 18-100 07/14/2028 07/14/2023, 07/14/2023, 12/08/2000 Hepatitis C Screening Completed 08/05/2017 Colonoscopy Discontinued 07/14/2023, 06/18, 12/08/2000 Colorectal Cancer Screening Discontinued Pneumococcal Vaccine: Pediatrics (0 to 5 Years) and At-Risk Patients (6 to 64 Years) Completed 08/07/2023, 06/29/2012 Cologuard Discontinued Fecal Occult Blood Test Discontinued GARDASIL-HPV IMMUNIZATION SERIES Aged Out No longer eligible based on patient's age to complete this topic MENINGOCOCCAL (MENACTRA/MENVEO) Aged Out No longer eligible based on patient's age to complete this topic Sigmoidoscopy Discontinued documented as of this encounter Medical Devices Not on filedocumented as of this encounter Visit Diagnoses Diagnosis DM type 2 nursing care encounter (HCC) Type II or unspecified type diabetes mellitus without mention of complication, not stated as uncontrolled documented in this encounter Advance Directives Latest Code Status on File Code Status Date Activated Date Inactivated Comments Full Code 09/06/2007 4:39 PM 09/08/2007 6:17 PM Code Status History Code Status Date Activated Date Inactivated Comments Full Code 09/06/2007 1:04 PM 09/06/2007 4:39 PM Full Code 09/02/2007 9:42 AM 09/03/2007 5:34 PM Care Teams Fabrication Mig Welder Relationship Specialty Start Date End Date Lionel Mejias MD [address] [place] [address] PCP - General Family Medicine 01/20/12 documented as of this encounter
--- OUTSIDE RECORDS SUMMARY | 2023-10-18 20:36 | External Medical Summary | Summary of Care ---
Author Name Unknown Organization [facility] Address [address] [place] [address] Phone [phone] Care Team Providers Care Long Term Name Role Phone Lionel Mejias MD Primary Care Provider +1- [phone] Encounter Details Date Type Department Care Team (Late st Contact Info) Description 09/23/2023 Refill [facility] [address] [place] [address] Lionel Mejias MD [address] [place] [address] DM type 2 nursing care encounter (HCC) Allergies Active Allergy Reactions Criticality Noted Date Comments Acetaminophen Liver complications (Please comment) High 06/27/2011 Nsaids Edema face/lips/tongue Medium 02/16/2006 documented as of this encounter (statuses as of 09/23/2023) Medications Medication Sig Dispensed Refills Start Date [...] taking.Reported on 06/17/2023 Blood Glucose Monitoring Suppl ([employer] ULTRA SYSTEM) w/Device KITIndications:Elev ated glucose Use as directed 4 times a day as needed (fluctuating sugar). Use up to four times a day as directed 1 Kit 0 08/05/2017 Active Haloband ULTRASOFT LANCETS MISCIndications:Maliha vated glucose Use as directed 4 times a day as needed (fluctuating sugar). Use up to four times a day as directed 1 Box Dosing Unit 11 08/05/2017 Active ChangeYourFlightUCH ULTRA BLUE STRPIndications:Maliha vated glucose USE FOUR [...] A DAY 36 g 3 02/08/2020 Active StatTouch Verio w/Device KitIndications:DM type 2, not at goal (HCC) Use up to 2 times a day E11.9 1 Kit 0 12/01/2022 Active Magnesium Oxide 400 MG Oral Tablet Take 1 Tablet by mouth daily. 0 12/01/2022 Active Omeprazole 40 MG Oral Capsule Delayed Release (PriLOSEC)Indicatio ns:Abdominal pain, epigastric Take 1 Capsule by mouth in the morning. 1 hour before the first meal of the day. 90 Capsule 3 12/26/2022 Active Gabapentin 300 MG Oral Capsule (Neurontin)Indicati [...] 14 DAYS. 22 g 0 06/19/2023 Active Additional Information Patient not taking.Reported on 07/13/2023 Vitamin D3 1.25 MG (84930 UT) Oral CapsuleIndications: Vitamin D deficiency Take 1 Capsule by mouth once a week. 4 Capsule 3 06/19/2023 Active Additional Information Patient not taking.Reported on [...] other meds) 90 Tablet 3 06/19/2023 Active Fluticasone Propionate 50 MCG/ACT Nasal Suspension (Flonase)Indication s:Acute sinusitis, recurrence not specified, unspecified location Administer 2 Sprays into each nostril in the morning. 48 g 0 07/03/2023 Active Insulin Glargine 100 UNIT/ML Subcutaneous Solution Pen-injector (Lantus)Indications :Type 2 diabetes mellitus with hemoglobin A1c goal of less than 7.0% ([facility]) Inject 24 Units under the skin in the morning. 9 mL 11 08/07/2023 Active OneTouch Verio In Vitro Strip (Glucose Blood)Indications:D M type 2, not at goal ([facility]) Use up to 4 times a day E11.9 300 Strip 11 08/07/2023 Active Dicyclomine HCl 10 MG Oral Capsule (Bentyl)Indications :Irritable bowel syndrome, unspecified type TAKE 1 CAPSULE BY MOUTH THREE TIMES A DAY NEEDED FOR CRAMPING 30 Capsule 2 09/01/2023 Active Ondansetron 4 MG Oral Tablet Disintegrating (Zofran)Indications :Nausea DISSOLVE 1 TABLET ON TONGUE DIRECTED. 60 Tablet 0 09/01/2023 Active metFORMIN HCl ER 500 MG Oral Tablet Extended Release 24 Hour (Glucophage XR)Indications:DM type 2 nursing care encounter (HCC) Take 1 Tablet by mouth in the morning and 1 Tablet in the evening. 180 Tablet 3 09/23/2023 Active metFORMIN HCl ER 500 MG Oral Tablet Extended Release 24 Hour (Glucophage XR)Indications:DM type 2 nursing care encounter (HCC) TAKE 2 TABLETS BY MOUTH PER DAY 60 Tablet 5 08/31/2023 09/23/19 24 Discontinu ed(Refill) Hospital, Clinic, or Other Facility Administered Medication Ordered Dose Route Frequency Start Date End Date Status albuterol sulfate (PROVENTIL) (2.5 MG/3ML) 0.083% inhalation solution 2.5 mgIndications:Tobacco use disorder,Bronchitis, complicated,Wheeze 2.5 mg NEBULIZER Q4H PRN 01/27/2019 Active documented as of this encounter (statuses as of 09/23/2023) Active Problems Problem Noted Date Diagnosed Date [...] as of this encounter (statuses as of 09/23/2023) Resolved Problems Problem Noted Date Diagnosed Date [...] as of this encounter (statuses as of 09/23/2023) Immunizations Name Administration Dates Next Due Pneumococcal Conjugate Vacci ne, 20-valent ([id number]) 08/07/2023 Pneumococcal Polysaccharide PPV23 (Pneumovax) 06/29/2012,03/02/2009(Deferred: Contraindication [...] Telephone Encounter - Lionel Mejias MD - 09/23/2023 2:04 PM ESTSigned Prescriptions: Disp Refills metFORMIN HCl ER 500 MG Oral Tablet Extend*180 Ta*3 Sig: Take 1 Tablet by mouth in the morning and 1 Tablet in the evening.Authorizing Provider: LIONEL MEJIAS- documented in this encounter Plan of Treatment Scheduled Procedures Name Priority Associated Diagnoses Date/Ti me COLONOSCOPY FLEXIBLE PROXIMA L DIAGNOSTIC Recall History of colonic polyps Health Maintenance Due Date Last Done Comments DISCUSS TOBACCO CESSATION (REFER TO SMARTSET #[id number]) 1970 Hepatitis B (1 of 3 - [...] 9:42 AM 09/03/2007 5:34 PM Care Teams Long Term Relationship Specialty Start Date End Date Lionel Mejias MD [address] [place] [address] PCP - General Family Medicine 01/20/12 documented as of this encounter
--- OUTSIDE RECORDS SUMMARY | 2023-10-18 20:36 | External Medical Summary | Summary of Care ---
Author Name Unknown Organization [facility] Address [address] [place] [address] Phone [phone] Care Team Providers Care Director Business Management Name Role Phone Timoteo Muniz MD Primary Care Provider +1- [phone] Reason for Visit * Reason Comments eRx-Medication Refill Encounter Details Date Type Department Care Team (Late st Contact Info) Description 09/09/2023 Refill [facility] [address] [place] [facility] [place] [address] Timoteo Muniz MD [address] [place] [address] Other specified hypothyroidism Allergies Active Allergy Reactions Criticality Noted Date Comments Acetaminophen Liver complications (Please comment) High 06/27/2011 Nsaids Edema face/lips/tongue Medium 02/16/2006 documented as of this encounter (statuses as of 09/10/2023) Medications Medication Sig Dispensed Refills Start Date [...] taking.Reported on 06/17/2023 Blood Glucose Monitoring Suppl (SkemA ULTRA SYSTEM) w/Device KITIndications:[place] marko glucose Use as directed 4 times a day as needed (fluctuating sugar). Use up to four times a day as directed 1 Kit 0 08/05/2017 Active SkemA ULTRASOFT LANCETS MISCIndications:Elev ated glucose Use as directed 4 times a day as needed (fluctuating sugar). Use up to four times a day as directed 1 Box Dosing Unit 11 08/05/2017 Active EvoinfinityUCH ULTRA BLUE STRPIndications:Elev ated glucose USE FOUR [...] 5 12/29/2018 Active FLOVENT HFA 110 MCG/ACT inhalerIndications:B ronchitis, complicated,Tobacco use disorder,Wheeze INHALE 2 PUFFS BY MOUTH 2 TIMES A DAY 36 g 3 02/08/2020 Active IterableTouch Verio w/Device KitIndications:DM type 2, not at [...] 12/26/2022 Active Gabapentin 300 MG Oral Capsule (Neurontin)Indicatio [...] taking.Reported on 07/13/2023 Vitamin D3 1.25 MG (77716 UT) Oral CapsuleIndications:V itamin D deficiency Take 1 Capsule by mouth once a week. 4 Capsule 3 06/19/2023 Active Additional Information Patient not taking.Reported on 07/13/2023 Betamethasone Dipropionate 0.05 % External OintmentIndications: Dermatitis apply to the hands twice daily as needed 45 g 2 06/19/2023 Active Levothyroxine Sodium 200 MCG Oral Tablet (Levoxyl)Indications :Other specified hypothyroidism Take 1 Tablet by mouth daily first thing in the morning. (at least 30 min prior to breakfast or other meds) 90 Tablet 3 06/19/2023 Active Fluticasone Propionate 50 MCG/ACT Nasal Suspension (Flonase)Indications :Acute sinusitis, recurrence not specified, unspecified location Administer 2 Sprays into each nostril in the morning. 48 g 0 07/03/2023 Active Insulin Glargine 100 UNIT/ML Subcutaneous Solution Pen-injector (Lantus)Indications: Type 2 diabetes mellitus with hemoglobin A1c goal of less than 7.0% ([facility]) Inject 24 Units under the skin in the morning. 9 mL 11 08/07/2023 Active OneTouch Verio In Vitro Strip (Glucose Blood)Indications:DM type 2, not at goal ([facility]) Use up to 4 times a day E11.9 300 Strip 11 08/07/2023 Active metFORMIN HCl ER 500 MG Oral Tablet Extended Release 24 Hour (Glucophage XR)Indications:DM type 2 nursing care encounter ([facility]) TAKE 2 TABLETS BY MOUTH PER DAY 60 Tablet 5 08/31/2023 Active Dicyclomine HCl 10 MG Oral Capsule (Bentyl)Indications: Irritable bowel syndrome, unspecified type TAKE 1 CAPSULE BY MOUTH THREE TIMES A DAY NEEDED FOR CRAMPING 30 Capsule 2 09/01/2023 Active Ondansetron 4 MG Oral Tablet Disintegrating (Zofran)Indications: Nausea DISSOLVE 1 TABLET ON TONGUE DIRECTED. 60 Tablet 0 09/01/2023 Active Hospital, Clinic, or Other Facility Administered Medication Ordered Dose Route Frequency Start Date End Date Status albuterol sulfate (PROVENTIL) (2.5 MG/3ML) 0.083% inhalation solution 2.5 mgIndications:Tobacco use disorder,Bronchitis, complicated,Wheeze 2.5 mg NEBULIZER Q4H PRN 01/27/2019 Active documented as of this encounter (statuses as of 09/10/2023) Active Problems Problem Noted Date Diagnosed Date [...] as of this encounter (statuses as of 09/10/2023) Resolved Problems Problem Noted Date Diagnosed Date [...] as of this encounter (statuses as of 09/10/2023) Immunizations Name Administration Dates Next Due Pneumococcal Conjugate Vacci ne, 20-valent ([id number]) 08/07/2023 Pneumococcal Polysaccharide PPV23 (Pneumovax) 06/29/2012,03/02/2009(Deferred: Contraindication [...] encounter Miscellaneous Notes * Telephone Encounter - Ronald Miller, [facility] - 09/09/2023 2:47 PM EST Refused Prescriptions: Disp Refills Levothyroxine Sodium 112 MCG Oral Tablet (*180 Ta*0 Sig: TAKE 2TABLETS BY MOUTH DAILY FIRST THING IN THE MORNING. (AT LEAST 30 MIN PRIOR TO BREAKFAST OR OTHER MEDS)Refused By: RONALD MILLERReason for Refusal: Dose needs clarificationReason for Refusal Comment: current dose is 200mcg daily (1 year supply sent 06/19/23) documented in this encounter Plan of Treatment [...] 9:42 AM 09/03/2007 5:34 PM Care Teams Director Business Management Relationship Specialty Start Date End Date Timoteo Muniz MD [address] [place] [address] PCP - General Family Medicine 01/20/12 documented as of this encounter
--- OUTSIDE RECORDS SUMMARY | 2023-10-18 20:36 | External Medical Summary | Summary of Care ---
Author Name Unknown Organization [facility] Address [address] [facility] [place] [address] Phone [phone] Care Team Providers Care Foster Care Worker Name Role Phone Lionel Mejias MD Primary Care Provider +1- [phone] Reason for Visit * Reason Comments eRx-Medication Refill Encounter Details Date Type Department Care Team (Late st Contact Info) Description 08/31/2023 Refill [facility] [address] [place] [address] Lionel Mejias MD [address] [place] [address] Irritable bowel syndrome, unspecified type Allergies Active Allergy Reactions Criticality Noted Date Comments Acetaminophen Liver complications (Please comment) High 06/27/2011 Nsaids Edema face/lips/tongue Medium 02/16/2006 documented as of this encounter (statuses as of 09/01/2023) Medications Medication Sig Dispensed Refills Start Date End Date Status IMITREX STATDOSE REFILL 6 MG/0.5ML SUBQ SOLNIndications:Arturo searfin 0.5 ML 1 TIME ONLY 1 Syringe [...] taking.Reported on 06/17/2023 Blood Glucose Monitoring Suppl ([employer] ULTRA SYSTEM) w/Device KITIndications:Elev ated glucose Use as directed 4 times a day as needed (fluctuating sugar). Use up to four times a day as directed 1 Kit 0 7 Active SplingUCH ULTRASOFT LANCETS MISCIndications:Maliha vated glucose Use as directed 4 times a day as needed (fluctuating sugar). Use up to four times a day as directed 1 Box Dosing Unit 11 7 Active SplingUCH ULTRA BLUE STRPIndications:Maliha vated glucose USE FOUR [...] A DAY 36 g 3 0 Active [employer] & Carver Wind GroupTouch Verio w/Device KitIndications:DM type 2, not at [...] the day. 90 Capsule 3 3 Active Gabapentin 300 MG Oral [...] taking.Reported on 07/13/2023 Vitamin D3 1.25 MG (65750 UT) Oral CapsuleIndications: Vitamin D deficiency Take [...] hemoglobin A1c goal of less than 7.0% ([facility]) Inject 24 Units under the skin in the morning. 9 mL 11 3 Active OneTouch Verio In Vitro Strip (Glucose Blood)Indications:D M type 2, not at goal ([facility]) Use up to 4 times a day E11.9 300 Strip 11 3 Active metFORMIN HCl ER 500 MG Oral Tablet Extended Release 24 Hour (Glucophage XR)Indications:DM type 2 nursing care encounter (HCC) TAKE 2 TABLETS BY MOUTH PER DAY 60 Tablet 5 4 Active Dicyclomine HCl 10 MG Oral Capsule (Bentyl)Indications :Irritable bowel syndrome, unspecified type TAKE 1 CAPSULE BY MOUTH THREE TIMES A DAY NEEDED FOR CRAMPING 30 Capsule 2 4 Active Dicyclomine HCl 10 MG Oral Capsule (Bentyl)Indications :Irritable bowel syndrome, unspecified type Take 1 Capsule by mouth 3 times a day as needed for Cramping. 30 Capsule 2 3 09/01/19 24 Discontinued Hospital, Clinic, or Other Facility Administered Medication Ordered Dose Route Frequency Start Date End Date Status albuterol sulfate (PROVENTIL) (2.5 MG/3ML) 0.083% inhalation solution 2.5 mgIndications:Tobacco use disorder,Bronchitis, complicated,Wheeze 2.5 mg NEBULIZER Q4H PRN 01/27/2019 Active documented as of this encounter (statuses as of 09/01/2023) Active Problems Problem Noted Date Diagnosed Date [...] as of this encounter (statuses as of 09/01/2023) Resolved Problems Problem Noted Date Diagnosed Date [...] as of this encounter (statuses as of 09/01/2023) Immunizations Name Administration Dates Next Due Pneumococcal Conjugate Vacci ne, 20-valent ([id number]) 08/07/2023 Pneumococcal Polysaccharide PPV23 (Pneumovax) 06/29/2012,03/02/2009(Deferred: Contraindication [...] Telephone Encounter - Lionel Mejias MD - 09/01/2023 12:29 PM ESTSigned Prescriptions: Disp Refills Dicyclomine HCl 10 MG Oral Capsule (Bentyl)30 Cap*2 Sig: TAKE 1 CAPSULE BY MOUTH THREE TIMES A DAY NEEDED FOR CRAMPINGAuthorizing Provider: LIONEL MEJIAS--- * Telephone Encounter - Bela Pike [facility] - 09/01/2023 9:33 AM ESTPending Prescriptions: Disp Refills Dicyclomine HCl 10 MG Oral Capsule [Pharma*30 Cap*2 Sig: TAKE 1 CAPSULE BY MOUTH THREE TIMES A DAY NEEDED FOR CRAMPING * Telephone Encounter - Bela Pike [facility] - 09/01/2023 9:33 AM EST Refill pharmacists currently not authorized to approve refills for this class of medication per refill protocol. Please approve if appropriate. Pending Prescriptions: Disp Refills Dicyclomine HCl 10 MG Oral Capsule [Pharma*30 Cap*2 Sig: TAKE 1 CAPSULE BY MOUTH THREE TIMES A DAY NEEDED FOR CRAMPING 08/07/2023 (in office), 02/16/2023 (telemedicine) Visit date not found If no future appointments scheduled, and last appointment is greater than a year ago, please schedule patient for a follow-up appointment Last date the medication was ordered: 06/08/23 Pharmacy: Consulted [facility][id number] [id number] [facility] Is this request for a controlled substance? no Urine Drug Screen: Results for orders placed or performed in visit on 04/26/21 TOXICOLOGY, URINE SCREEN W/ CONFIRMATION Result Value Amphetamines Screen, U Positive (A) Benzodiazepines Screen, U Negative Cannabinoids Screen, U Negative Cocaine Metabolite Screen, U Negative Hydrocodone Screen, U Negative Methadone Metabolite Screen, U Negative Morphine/Codeine Screen, U Negative Oxycodone Screen, U Negative Narrative Cutoff Concentrations: Drug Level Amphetamines [...] found in Results Review. Patient Phone Numbers mobile [phone] Labs: Lab Results Component Value Date/Time CREAT [...] 9:42 AM 09/03/2007 5:34 PM Care Teams Foster Care Worker Relationship Specialty Start Date End Date Lionel Mejias MD [address] [place] [address] PCP - General Family Medicine 01/20/12 documented as of this encounter
--- OUTSIDE RECORDS SUMMARY | 2023-10-18 20:36 | External Medical Summary | Summary of Care ---
Author Name Unknown Organization [facility] Address [address] [place] [address] Phone [phone] Care Team Providers Care Rim Roller Setter Name Role Phone Timoteo Muniz MD Primary Care Provider +1- [phone] Encounter Details Date Type Department Care Team (Late st Contact Info) Description 09/07/2023 Orders Only PATIENT PORTAL DO NOT DELETE THIS DEPT USED BY COURT [place] [id number] Allergies Active Allergy Reactions Criticality Noted Date Comments Acetaminophen Liver complications (Please comment) High 06/27/2011 Nsaids Edema face/lips/tongue Medium 02/16/2006 documented as of this encounter (statuses as of 09/07/2023) Medications Medication Sig Dispensed Refills Start Date [...] taking.Reported on 06/17/2023 Blood Glucose Monitoring Suppl ([employer] ULTRA SYSTEM) w/Device KITIndications:[place] marko glucose Use as directed 4 times a day as needed (fluctuating sugar). Use up to four times a day as directed 1 Kit 0 08/05/2017 Active ONETOUCH ULTRASOFT LANCETS MISCIndications:Elev ated glucose Use as directed 4 times a day as needed (fluctuating sugar). Use up to four times a day as directed 1 Box Dosing Unit 11 08/05/2017 Active ONETOUCH ULTRA BLUE STRPIndications:Elev ated glucose USE FOUR [...] A DAY 36 g 3 02/08/2020 Active OneTouch Verio w/Device KitIndications:DM type 2, [...] taking.Reported on 07/13/2023 Vitamin D3 1.25 MG (64415 UT) Oral CapsuleIndications:V itamin D deficiency Take [...] goal of less than 7.0% ([facility]) Inject 24 Units under the skin in the morning. 9 mL 11 08/07/2023 Active OneTouch Verio In Vitro Strip (Glucose Blood)Indications:DM type 2, not at goal ([facility]) Use up to 4 times a day E11.9 300 Strip 11 08/07/2023 Active metFORMIN HCl ER 500 MG Oral Tablet Extended Release 24 Hour (Glucophage XR)Indications:DM type 2 nursing care encounter ([facility]) TAKE 2 TABLETS BY MOUTH PER DAY [...] as of this encounter (statuses as of 09/07/2023) Active Problems Problem Noted Date Diagnosed Date [...] as of this encounter (statuses as of 09/07/2023) Resolved Problems Problem Noted Date Diagnosed Date [...] as of this encounter (statuses as of 09/07/2023) Immunizations Name Administration Dates Next Due Pneumococcal Conjugate Vacci ne, 20-valent ([id number]) 08/07/2023 Pneumococcal Polysaccharide PPV23 (Pneumovax) 06/29/2012,03/02/2009(Deferred: Contraindication [...] as of this encounter Plan of Treatment Scheduled Procedures [...] 9:42 AM 09/03/2007 5:34 PM Care Teams Rim Roller Setter Relationship Specialty Start Date End Date Timoteo Muniz MD [address] [facility] [place] [address] PCP - General Family Medicine 01/20/12 documented as of this encounter
--- OUTSIDE RECORDS SUMMARY | 2023-10-18 20:36 | External Medical Summary | Summary of Care ---
Author Name Unknown Organization [facility] Address [address] [place] [address] Phone [phone] Care Team Providers Care Process Design Chemical Engineer Name Role Phone Lionel Mejias MD Primary Care Provider [phone]- [phone] Reason for Referral * Medication Prior Authorization - Pending Review Specialty Diagnoses / Procedures Referred By Malachi marin Referred To Contact Diagnoses Nausea Gilbert French, [facility] [address] [place] [address] Referral ID Status Reason Start Date Expiration Date V isits Requested Visits Authorized [id number] Pending Review 999 999 Reason for Visit * Reason Comments eRx-Medication Refill Encounter Details Date Type Department Care Team (Late st Contact Info) Description 08/31/2023 Refill [facility] [address] [place] [address] Lionel Mejias MD [address] [place] [address] Encounter for long-term (current) use of medications*; Nausea Allergies Active Allergy Reactions Criticality Noted [...] taking.Reported on 06/17/2023 Blood Glucose Monitoring Suppl (myEDmatch ULTRA SYSTEM) w/Device KITIndications:Elev ated glucose Use as directed 4 times a day as needed (fluctuating sugar). Use up to four times a day as directed 1 Kit 0 7 Active myEDmatch ULTRASOFT LANCETS MISCIndications:Maliha vated glucose Use as directed 4 times a day as needed (fluctuating sugar). Use up to four times a day as directed 1 Box Dosing [address] 11 7 Active ComparisimUCH ULTRA BLUE STRPIndications:Maliha vated glucose USE FOUR [...] A DAY 36 g 3 0 Active OneTouch Verio w/Device KitIndications:DM type 2, [...] taking.Reported on 07/13/2023 Vitamin D3 1.25 MG (20099 UT) Oral CapsuleIndications: Vitamin D deficiency Take [...] other meds) 90 Tablet 3 3 Active Fluticasone Propionate 50 MCG/ACT Nasal Suspension (Flonase)Indication s:Acute sinusitis, recurrence not specified, unspecified location Administer 2 Sprays into each nostril in the morning. 48 g 0 3 Active Insulin Glargine 100 UNIT/ML Subcutaneous Solution Pen-injector (Lantus)Indications :Type 2 diabetes mellitus with hemoglobin A1c goal of less than 7.0% (HCC) Inject 24 Units under the skin in the morning. 9 mL 11 3 Active OneTouch Verio In Vitro Strip (Glucose Blood)Indications:D M type 2, not at goal ([facility]) Use up to 4 times a day E11.9 300 Strip 11 3 Active metFORMIN HCl ER 500 MG Oral Tablet Extended Release 24 Hour (Glucophage XR)Indications:DM type 2 nursing care encounter ([facility]) TAKE 2 TABLETS BY MOUTH PER DAY 60 Tablet 5 4 Active Dicyclomine HCl 10 MG Oral Capsule (Bentyl)Indications :Irritable bowel syndrome, unspecified type TAKE 1 CAPSULE BY MOUTH THREE TIMES A DAY NEEDED FOR CRAMPING 30 Capsule 2 4 Active Ondansetron 4 MG Oral Tablet Disintegrating (Zofran)Indications :Nausea DISSOLVE 1 TABLET ON TONGUE DIRECTED. 60 Tablet 0 4 Active Ondansetron 4 MG Oral Tablet Disintegrating (Zofran)Indications :Nausea DISSOLVE 1 TABLET ON TONGUE DIRECTED. 60 Tablet 0 3 09/01/19 24 Discontinued Hospital, Clinic, or [...] 7.0% 11/28/2022 Food insecurity 03/25/2021 Overview: Per [facility] Protocol Chronic narcotic use 12/29/2018 [...] Next Due Pneumococcal Conjugate Vacci ne, 20-valent ([id number]) 08/07/2023 Pneumococcal Polysaccharide PPV23 (Pneumovax) 06/29/2012,03/02/2009(Deferred: Contraindication [...] encounter Miscellaneous Notes * Telephone Encounter - Gilbert French [facility] - 09/01/2023 2:30 PM ESTSigned Prescriptions: Disp Refills Ondansetron 4 MG Oral Tablet Disintegratin*60 Tab*0 Sig: DISSOLVE 1 TABLET ON TONGUE DIRECTED.Authorizing Provider: LIONEL MEJIAS User: GILBERT FRENCH * Telephone Encounter - Gilbert French RP - 09/01/2023 2:29 PM EST Magnesium ordered per protocol- patient may obtain with next routine labs. Thank You Gilbert French, PharmD Clinical Pharmacist [facility] [phone] / [phone] 09/01/2023, 2:30 PM documented in this encounter Plan of Treatment Scheduled Orders Name Type Priority Associated Diagnoses Orde r Schedule MAGNESIUM Lab Routine Encounter for long-term (current) use of medications Expected: 09/08/2023 (Approximate), Expires: 09/01/2024 Scheduled Procedures Name Priority Associated Diagnoses Date/Ti me COLONOSCOPY FLEXIBLE PROXIMA L DIAGNOSTIC Recall History of colonic polyps Health Maintenance Due Date Last Done Comments DISCUSS TOBACCO CESSATION (REFER TO SMARTSET #0879) 1970 Hepatitis B (1 of 3 - [...] as of this encounter Visit Diagnoses Diagnosis Encounter for long-term (current) use of medications- Primary Encounter for long-term (current) use of other medications Nausea Nausea alone documented in this encounter Advance Directives Latest Code Status on File Code Status Date Activated Date Inactivated Comments Full Code 09/06/2007 4:39 PM 09/08/2007 6:17 PM Code Status History Code Status Date Activated Date Inactivated Comments Full Code 09/06/2007 1:04 PM 09/06/2007 4:39 PM Full Code 09/02/2007 9:42 AM 09/03/2007 5:34 PM Care Teams Process Design Chemical Engineer Relationship Specialty Start Date End Date Lionel Mejias MD [address], [place] [id number] PCP - General Family Medicine 01/20/12 documented as of this encounter
--- OUTSIDE RECORDS SUMMARY | 2023-10-18 20:37 | External Medical Summary | Summary of Care ---
Author Name Unknown Organization [facility] Address [address] [place] [address] Phone [phone] Care Team Providers Care Financial Investment Adviser Name Role Phone Lionel Mejias MD Primary Care Provider [phone]- [phone] Reason for Visit * Reason Comments eRx-Medication Refill Encounter Details Date Type Department Care Team (Late st Contact Info) Description 08/07/2023 Refill [facility] [address] [place] [address] Lionel Mejias MD [address] [place] [address] DM type 2 nursing care encounter ([facility]) Allergies Active Allergy Reactions Criticality Noted Date Comments Acetaminophen Liver complications (Please comment) High 06/27/2011 Nsaids Edema face/lips/tongue Medium 02/16/2006 documented as of this encounter (statuses as of 08/07/2023) Medications Medication Sig Dispensed Refills Start Date [...] taking.Reported on 06/17/2023 Blood Glucose Monitoring Suppl (Gigwalk ULTRA SYSTEM) w/Device KITIndications:Elev ated glucose Use as directed 4 times a day as needed (fluctuating sugar). Use up to four times a day as directed 1 Kit 0 7 Active Gigwalk ULTRASOFT LANCETS MISCIndications:Maliha vated glucose Use as directed 4 times a day as needed (fluctuating sugar). Use up to four times a day as directed 1 Box Dosing Unit 11 7 Active D.light DesignUCH ULTRA BLUE STRPIndications:Maliha vated glucose USE FOUR [...] taking.Reported on 07/13/2023 Vitamin D3 1.25 MG (55072 UT) Oral CapsuleIndications: Vitamin D deficiency Take [...] the morning. 48 g 0 3 Active metFORMIN HCl ER 500 MG Oral Tablet Extended Release 24 Hour (Glucophage XR)Indications:DM type 2 nursing care encounter (HCC) TAKE 2 BY MOUTH PER DAY 60 Tablet 0 3 Active Insulin Glargine 100 UNIT/ML Subcutaneous Solution Pen-injector (Lantus)Indications :Type 2 diabetes mellitus with hemoglobin A1c goal of less than 7.0% ([facility]) Inject 24 Units under the skin in the morning. 9 mL 11 3 Active OneTouch Verio In Vitro Strip (Glucose Blood)Indications:D M type 2, not at goal ([facility]) Use up to 4 times a day E11.9 300 Strip 11 3 Active metFORMIN HCl ER 500 MG Oral Tablet Extended Release 24 Hour (Glucophage XR)Indications:DM type 2 nursing care encounter ([facility]) Take 2 Tablets by mouth in the morning and 2 Tablets before bedtime. 360 Tablet 3 3 08/07/20 23 Discontinued Hospital, Clinic, or Other Facility Administered Medication Ordered Dose Route Frequency Start Date End Date Status albuterol sulfate (PROVENTIL) (2.5 MG/3ML) 0.083% inhalation solution 2.5 mgIndications:Tobacco use disorder,Bronchitis, complicated,Wheeze 2.5 mg NEBULIZER Q4H PRN 01/27/2019 Active documented as of this encounter (statuses as of 08/07/2023) Active Problems Problem Noted Date Diagnosed Date [...] as of this encounter (statuses as of 08/07/2023) Resolved Problems Problem Noted Date Diagnosed Date [...] as of this encounter (statuses as of 08/07/2023) Immunizations Name Administration Dates Next Due Pneumococcal Conjugate Vacci ne, 20-valent ([id number]) 08/07/2023 Pneumococcal Polysaccharide PPV23 (Pneumovax) 06/29/2012,03/02/2009(Deferred: Contraindication [...] encounter Miscellaneous Notes * Telephone Encounter - Cullen Pepe, [facility] - 08/07/2023 4:06 PM EST Signed Prescriptions: Disp Refills metFORMIN HCl ER 500 MG Oral Tablet Extend*60 Tab*0 Sig: TAKE 2 BY MOUTH PER DAYAuthorizing Provider: LIONEL MEJIAS User: CULLEN PEPE------ * Telephone Encounter - Cullen Pepe [facility] - 08/07/2023 3:59 PM EST See ov on 08/07/2023 30d with 0 ref sent to pharmacy. Thank you, Ck Pepe, PharmD Clinical Pharmacist [facility] 08/07/23 4:05 PM [phone] documented in this encounter Plan of Treatment Upcoming Encounters Date Type Department Care Team (Late st Contact Info) Description 08/12/2023 7:15 AM EST [address] [place] [address] 08/12/2023 8:45 AM EST [address] [place] [address] 08/12/2023 9:45 AM EST Appointment Radiology, [address] [place] [address] 08/12/2023 11:45 AM EST Appointment [facility], [address] [place] [address] 08/27/2023 4:15 PM EST Imaging Radiology [address], [address] [place] [address] [phone] 09/18/2023 1:00 PM EST Office Visit [facility] [address] [facility] [place] [address] DecemberParviz MD [address] [place] [address] Scheduled Procedures Name Priority Associated Diagnoses Date/Ti me COLONOSCOPY FLEXIBLE PROXIMA L DIAGNOSTIC Recall History of colonic polyps Health Maintenance Due Date Last Done Comments DISCUSS TOBACCO CESSATION (REFER TO SMARTSET #0363) 1970 Hepatitis B (1 of 3 - [...] 9:42 AM 09/03/2007 5:34 PM Care Teams Financial Investment Adviser Relationship Specialty Start Date End Date Lionel Mejias MD [address] [place] [address] PCP - General Family Medicine 01/20/12 documented as of this encounter
--- OUTSIDE RECORDS SUMMARY | 2023-10-18 20:37 | External Medical Summary | Summary of Care ---
Author Name Unknown Organization [facility] Address [address] [address] Phone [phone] Care Team Providers Care Termite Renewal Inspector Name Role Phone Timoteo Muniz MD Primary Care Provider [phone] Reason for Visit * Auth/Cert Specialty Diagnoses / Procedures Referred By Malachi marin Referred To Contact Diagnoses Colon cancer screening Colon cancer screening [Z12.11] Procedures COLONOSCOPY, DIAGNOSTIC (RECTUM) COLONOSCOPY FLEXIBLE PROXIMAL DIAGNOSTIC Referral ID Status Reason Start Date Expiration Date Visits Re quested Visits Authorized [id number] Encounter Details Date Type Department Care Team (Latest Contact Info) Description 07/14/2023 8:53 AM EST - 07/14/2023 11:02 AM EST Hospital Encounter [facility]O [facility], Endoscopy Room [facility] [address] [place] [id number] Nafisa Vargas DO [address] [place] [address] Colonoscopy Discharge Disposition: Home - Self Care Allergies Active Allergy Reactions Criticality Noted Date Comments Acetaminophen Liver complications (Please comment) High 06/27/2011 Nsaids Edema face/lips/tongue Medium 02/16/2006 documented as of this encounter (statuses as of 07/14/2023) Medications Medication Sig Dispensed Refills Start Date [...] taking.Reported on 06/17/2023 Blood Glucose Monitoring Suppl (SaleHoot ULTRA SYSTEM) w/Device KITIndications:[place]andaree marko glucose Use as directed 4 times a day as needed (fluctuating sugar). Use up to four times a day as directed 1 Kit 0 08/05/2017 Active SaleHoot ULTRASOFT LANCETS MISCIndications:Elev ated glucose Use as directed 4 times a day as needed (fluctuating sugar). Use up to four times a day as directed 1 Box Dosing Unit 11 08/05/2017 Active SaleHoot ULTRA BLUE STRPIndications:Elev ated glucose USE FOUR [...] Additional Information Patient not taking.Reported on 12/03/2022 AppNetaTouch Sift Shoppingio w/Device KitIndications:DM type 2, not at goal (HCC) Use up to 2 times a day E11.9 1 Kit 0 12/01/2022 Active Share Your Brain In Vitro Strip (Glucose Blood)Indications:DM type 2, [...] taking.Reported on 07/13/2023 Vitamin D3 1.25 MG (21561 UT) Oral CapsuleIndications:V itamin D deficiency Take [...] goal of less than 7.0% (HCC) Inject 20 Units under the skin in the morning. 15 mL 1 06/29/2023 Active Fluticasone Propionate 50 MCG/ACT Nasal Suspension (Flonase)Indications :Acute sinusitis, recurrence not specified, unspecified location Administer 2 Sprays into each nostril in the morning. 48 g 0 07/03/2023 Active Additional Information Patient not taking.Reported on 07/13/2023 documented as of this encounter (statuses as of 07/14/2023) Active Problems Problem Noted Date Diagnosed Date [...] as of this encounter (statuses as of 07/14/2023) Resolved Problems Problem Noted Date Diagnosed Date [...] as of this encounter (statuses as of 07/14/2023) Immunizations Name Administration Dates Next Due Pneumococcal [...] Sign Reading Time Taken Comments Blood Pressure 130/66 07/14/2023 10:39 AM EST Pulse 90 07/14/2023 10:39 AM EST Temperature 36.4 C (97.6 F) 07/14/2023 10:[address] Respiratory Rate 18 07/14/2023 10:39 AM EST Oxygen Saturation 100% 07/14/2023 10:39 AM EST Inhaled Oxygen Concentration - - Weight 88.5 kg (195 lb) 07/13/2023 11:33 AM EST Height 160 cm (5' 3") 07/13/2023 11:33 AM EST Body Mass Index 34.54 07/13/2023 11:33 AM EST documented in this encounter H&P Notes * Nafisa Vargas, DO - 07/14/2023 9:37 AM EST Endoscopy Pre-Procedure Assessment Name: Daiana Bhandari Date: 07/14/2023 Time: 9:37 AM Procedure: Colonoscopy; with Indication(s) of average risk screening Endoscopy Pre-Procedure Assessment: Prior to the procedure, the patient was identified. The patient's history, medications and allergies were reviewed as per the Anesthesia Assessment. The patient is competent. The risks and benefits of the proposed procedure and the planned sedation were discussed with the patient. All questions were answered and informed consent for the procedure was obtained. This patient has undergone a preprocedural evaluation. A determination has been made to proceed with the planned procedure under [facility] [place] procedural guidelines and the [facility] Non-Emergent, Elective Medical Services and Treatment Recommendations (published on 11-22-19). The community and hospital prevalence of COVID-19 has been discussed as well as this patient's specific risks associated with SARS-CoV-19 infection. Based upon the clinical acuity and patient-specific care considerations, this procedure is deemed a Tier II - Intermediate acuity treatment or service with either progression or the threat of progressive disease related to the delay in treatment. Not providing the service has the potential for increasing morbidity or mortality. BP 149/82 | Pulse 92 | Temp 36.2 C (97.2 F) (Tympanic) | Resp 16 | Ht 1.6 m (5' 3") | Wt 88.5 kg (195 lb) | LMP 06/17/2002 | SpO2 99% | BMI 34.54 kg/m | BSA 1.98 m Prior to Admission medications Medication Sig Last Dose Discont. Insulin Glargine 100 UNIT/ML Subcutaneous Solution Pen-injector (Lantus) Inject 20 Units under the skin in the morning. 07/14/2023 Ondansetron 4 MG Oral Tablet Disintegrating (Zofran) DISSOLVE 1 TABLET ON TONGUE DIRECTED. Past Week Betamethasone Dipropionate 0.05 % External Ointment apply to the hands twice daily as needed Past Week Levothyroxine Sodium 200 MCG Oral Tablet (Levoxyl) Take 1 Tablet by mouth daily first thing in the morning. (at least 30 min prior to breakfast or other meds) 07/14/2023 Polyethylene Glycol 3350 17 GM/SCOOP Oral Powder (Miralax) DISSOLVE ONE HEAPING TABLESPOON IN 8 OZ OF WATER OR JUICE ONCE OR TWICE PER DAY 07/13/2023 Albuterol Sulfate HFA 108 (90 Base) MCG/ACT Inhalation Aerosol Solution INHALE 2 PUFFS BY MOUTH EVERY 4 HOURS NEEDED FOR WHEEZING. Past Week Gabapentin 300 MG Oral Capsule (Neurontin) Take 1 Capsule by mouth at bedtime. 07/13/2023 metFORMIN HCl ER 500 MG Oral Tablet Extended Release 24 Hour (Glucophage XR) Take 2 Tablets by mouth in the morning and 2 Tablets before bedtime. 07/13/2023 Dicyclomine HCl 10 MG Oral Capsule (Bentyl) Take 1 Capsule by mouth 3 times a day as needed for Cramping. 07/13/2023 Omeprazole 40 MG Oral Capsule Delayed Release (PriLOSEC) Take 1 Capsule by mouth in the morning. 1 hour before the first meal of the day. 07/13/2023 Magnesium Oxide 400 MG Oral Tablet Take 1 Tablet by mouth daily. Past Week OneTouch Verio In Vitro Strip (Glucose Blood) Use up to 2 times a day E11.9 07/13/2023 OneTouch Verio w/Device Kit Use up to 2 times a day E11.9 07/13/2023 Spacer/Aero-Holding Chambers (OPTICHAMBER ADVANTAGE) MISC use with MDI as directed Past Week ONETOUCH ULTRA BLUE STRP USE FOUR TIMES A DAY TO TEST SUGAR NEEDED 07/13/2023 Blood Glucose Monitoring Suppl (ONETOUCH ULTRA SYSTEM) w/Device KIT Use as directed 4 times a day as needed (fluctuating sugar). Use up to four times a day as directed 07/13/2023 ONETOUCH ULTRASOFT LANCETS MISC Use as directed 4 times a day as needed (fluctuating sugar). Use upto four times a day as directed 07/13/2023 aspirin enteric coated 81 MG TBEC Take 1 Tablet by mouth in the morning. Past Week Fluticasone Propionate 50 MCG/ACT Nasal Suspension (Flonase) Administer 2 Sprays into each nostril in the morning. Patient not taking: Reported on 07/13/2023 Not Taking Mupirocin 2 % External Ointment (Bactroban) APPLY TO AFFECTED AREA 3 TIMES A DAY FOR 14 DAYS. Patient not taking: Reported on 07/13/2023 Not Taking Vitamin D3 1.25 MG (28462 UT) Oral Capsule Take 1 Capsule by mouth once a week. Patient not taking: Reported on 07/13/2023 Not Taking FLOVENT HFA 110 MCG/ACT inhaler INHALE 2 PUFFS BY MOUTH 2 TIMES A DAY Patient not taking: Reported on 12/03/2022 Not Taking albuterol-ipratropium (DUONEB) 2.5-0.5 MG/3ML nebulizer solution Inhale 3 mL via nebulizer 4 times a day. Over 30 Days clotrimazole (LOTRIMIN) 1 % cream Apply topically to affected area 2 times a day. To affacted area for two weeks. Patient not taking: Reported on 06/17/2023 Not Taking IMITREX STATDOSE REFILL 6 MG/0.5ML SUBQ SOLN 0.5 ML 1 TIME ONLY Patient not taking: Reported on 12/03/2022 Not Taking Review of patient's allergies indicates: Allergen Reactions Acephen [Acetaminophen] Liver complications (Please comment) Relafen [Nsaids] Edema face/lips/tongue Physical Exam: Mental Status Examination: alert and oriented. General: nad, calm Airway Examination: normal oropharyngeal airway and neck mobility. Respiratory Examination: symmetrical excursion Abd:soft/ntd ASA Grade: III - A patient with severe systemic disease. After reviewing the risks and benefits, the patient was deemed in satisfactory condition to undergothe procedure. The anesthesia plan was to use general anesthesia. Nafisa Vargas DO Gastroenterology and Hepatology 07/14/2023] documented in this encounter Procedure Notes * Timoteo Muniz MD - 07/14/2023 9:48 AM ESTAssociated Order(s): COLONOSCOPY [facility] Patient Name: Daiana Bhandari Procedure Date: 07/14/2023 9:48 AM Date of : 1970 Admit Type: Outpatient Note Status: Finalized Date of : 1970 Admit Type: Outpatient Age: 53 Room: [facility] 3 Gender: Female Note Status: Finalized Procedure: Colonoscopy Indications: Screening for colorectal malignant neoplasm Providers: Nafisa Vargas DO (Doctor) Patient Profile: This is a 53 year old female. Refer to note in patient chart for documentation of history and physical. Referring MD: Timoteo Muniz MD (Referring MD) Medicines: General Anesthesia Complications: No immediate complications. Procedure: Pre-Anesthesia Assessment: - Prior to the procedure, a History and Physical was performed, and patient medications and allergies were reviewed. The risks and benefits of the procedure and the sedation options and risks were discussed with the patient. All questions were answered and informed consent was obtained. Patient identification and proposed procedure were verified by the physician, the nurse and the quantity surveyor in the procedure room. Mental Status Examination: alert and oriented. Airway Examination: Mallampati Class II (the uvula but not tonsillar pillars visualized). Respiratory Examination: clear to auscultation. CV Examination: RRR, no murmurs, no S3 or S4. Prophylactic Antibiotics: The patient does not require prophylactic antibiotics. Prior Anticoagulants: The patient has taken no anticoagulant or antiplatelet agents except for aspirin. ASA Grade Assessment: III - A patient with severe systemic disease. After reviewing the risks and benefits, the patient was deemed in satisfactory condition to undergo the procedure. The anesthesia plan was to use general anesthesia. Immediately prior to administration of medications, the patient was re-assessed for adequacy to receive sedatives. The physical status of the patient was re-assessed after the procedure. After I obtained informed consent, the scope was passed under direct vision. All instruments were visually inspected immediately before and after removal from the patient to ensure they are fully intact. Throughout the procedure, the patient's blood pressure, pulse, and oxygen saturations were monitored continuously. The colonoscopy was performed without difficulty. The patient tolerated the procedure well. The quality of the bowel preparation was good. The PCF-180AL Colonoscope ([id number]) was introduced through the anus and advanced to the cecum, identified by appendiceal orifice and ileocecal valve. Findings & Specimens: Hemorrhoids were found on perianal exam. Two sessile polyps were found in the descending colon. The polyps were 3 mm in size. These polyps were removed with a cold snare. Resection and retrieval were complete. Verification of patient identification for the specimen was done by the physician and nurse using the patient's name and date. The pathology specimen was placed into Bottle Number 1. Internal hemorrhoids were found during retroflexion. Impression: - Hemorrhoids found on perianal exam. - Two 3 mm polyps in the descending colon, removed with a cold snare. Resected and retrieved. - Internal hemorrhoids. Recommendation: - Patient has a contact number available for emergencies. The signs and symptoms of potential delayed complications were discussed with the patient. Return to normal activities tomorrow. Written discharge instructions were provided to the patient. - The patient will be observed post-procedure, until all discharge criteria are met. - Discharge patient to home (with escort). - Resume previous diet. - Continue present medications. - Await pathology results. - Repeat colonoscopy date to be determined after pending pathology results are reviewed for surveillance. Nafisa Vargas, 07/14/2023 10:22:21 AM This report has been signed electronically. documented in this encounter Nursing Notes * Nany Benitez RN - 07/14/2023 10:57 AM EST Patient is alert, pain free, passing flatus and tolerating po fluids prior to discharge. Patient has been visited by Dr. Vargas. Patient has received and demonstrates understanding of discharge instructions. Patient ambulates to private auto accompanied by endo staff. * Nany Benitez RN - 07/14/2023 10:38 AM EST Awake rectal discomfort minimizing * Rashi Ruiz RN - 07/14/2023 10:24 AM EST Specimen(s) and location(s) verified with physician post procedure 10:24 AM Rashi Ruiz RN Mid abdominal pressure given per Dr. Vargas to assist with scope advancement. Pt tolerated well See anesthesia record for medication administered during procedure. Rashi Ruiz RN Pre cleaning of scope at the bedside started by refinish technician. * Martita Kelley RN - 07/14/2023 9:49 AM EST Patient prepped and ready for anesthesia to assess. Call saab in reach, bed locked. documented in this encounter Plan of Treatment Upcoming Encounters Date Type Department Care Team (Late st Contact Info) Description 08/05/2023 4:15 PM EST Imaging Radiology [address] [place] [address] 08/07/2023 11:00 AM EST [facility] Visit [facility] [address] [phone] DecemberParviz MD [address] [facility] [address] 08/12/2023 7:15 AM EST [address] [place] [address] 08/12/2023 8:45 AM EST [address] Radiology[address] [place] [address] 08/12/2023 9:45 AM EST Appointment Radiology, [address] [place] [address] 08/12/2023 11:45 AM EST Appointment Radiology[address] [place] [address] 09/18/2023 1:00 PM EST Office Visit [facility] [address] [place] [address] Parviz Arzola MD [address] [place] [address] Pending Results Name Type Priority Associated Diagnoses Date /Time SURGICAL PATHOLOGY Pathology Routine Colon cancer screening 07/14/2023 10:23 AM EST Scheduled Orders Name Type Priority Associated Diagnoses Orde r Schedule SURGICAL PATHOLOGY Pathology Routine Colon cancer screening Release Upon Ordering for 1 Occurrences starting 07/14/2023 Scheduled Procedures Name Priority Associated Diagnoses Date/Ti me COLONOSCOPY FLEXIBLE PROXIMAL DIAGNOSTIC Colon cancer screening 07/14/2023 10:01 AM EST Health Maintenance Due Date Last Done Comments DISCUSS TOBACCO CESSATION (REFER TO SMARTSET #[id number]) 1970 Hepatitis B (1 of 3 - 3-dose series) 1970 COVID-19 Vaccine (#1) 1970 Albumin/Creatinine Ratio 1989 Alpha-1 Antitrypsin 1989 Pneumococcal Vaccine: Pediatrics (0 to 5 Years) and At-Risk Patients (6 to 64 Years) (2 - PCV) 06/29/2013 06/29/2012 Cologuard 02/10/2016 Fecal Occult Blood Test 02/10/2016 Sigmoidoscopy [...] COMPLETED IN PAST YEAR FOR COPD 06/17/2024 07/14/2023 TSH 06/17/2024 06/17/2023, 06/2 09/2022, 07/20/2019, Additional history exists Colonoscopy 07/14/2033 07/14/2023, 12/08/2000 Colorectal Cancer Screening 07/14/2033 Hepatitis C Screening Completed 08/05/2017 GARDASIL-HPV IMMUNIZATION SERIES Aged Out No longer eligible based on patient's age to complete this topic MENINGOCOCCAL (MENACTRA/MENVEO) Aged Out No longer eligible based on patient's age to complete this topic documented as of this encounter Medical Devices Not on filedocumented as of this encounter Procedures Procedure Name Priority Date/Time Associated Diagnosis Comments GLUCOSE METER, POINT OF CARE [facility] 07/14/2023 10:27 AM EST COLONOSCOPY 07/14/2023 9:48 AM EST GLUCOSE METER, POINT OF CARE [facility] 07/14/2023 9:45 AM EST documented in this encounter Results * (ABNORMAL) GLUCOSE METER, POINT OF CARE (07/14/2023 10:27 AM EST) Glucose Meter 125(H) 70 - 120 mg/dL 07/14/2023 10:29 AM EST [facility] Whole blood specimen / Unknown 07/14/2023 10:27 AM EST 07/14/2023 10:29 AM EST Nafisa Vargas DO LAB POINT OF C ARE TEST DOCKED DEVICE UNSOLICITED RESULTS [facility] [place] [address] [place] [address] * COLONOSCOPY (07/14/2023 9:48 AM EST) 07/14/2023 9:48 AM EST Narrative Procedure Note Timoteo Muniz MD - 07/14/2023 9:48 AM EST [facility] Patient Name: Daiana Bhandari Procedure Date: 07/14/2023 9:48 AM Date of : 1970 Admit Type: Outpatient Note Status:Finalized Date of : 1970 Admit Type: Outpatient Age: 53 Room: Endo 3 Gender: Female Note Status: Finalized Procedure: Colonoscopy Indications: Screening for colorectal malignant neoplasm Providers: Nafisa Vargas DO (Doctor) Patient Profile: This is a 53 year old female. Refer to note inpatient chart for documentation of history and physical. Referring MD: Timoteo Muniz MD (Referring MD) Medicines: General Anesthesia Complications: No immediate complications. Procedure: Pre-Anesthesia Assessment: - Prior to the procedure, a History and Physicalwas performed, and patient medications and allergies were reviewed. The risksand benefits of the procedure and the sedation options and risks were discussed withthe patient. All questions were answered and informed consent was obtained. Patientidentification and proposed procedure were verified by the physician, the nurseand the quantity surveyor in the procedure room. Mental Status Examination: alertand oriented. Airway Examination: Mallampati Class II (the uvula but not tonsillarpillars visualized). Respiratory Examination: clear to auscultation. CV Examination:RRR, no murmurs, no S3 or S4. Prophylactic Antibiotics: The patient does notrequire prophylactic antibiotics. Prior Anticoagulants: The patient has taken noanticoagulant or antiplatelet agents except for aspirin. ASA Grade Assessment: III - Apatient with severe systemic disease. After reviewing the risks and benefits,the patient was deemed in satisfactory condition to undergo the procedure.The anesthesia plan was to use general anesthesia. Immediately prior toadministration of medications, the patient was re-assessed for adequacy to receive sedatives.The physical status of the patient was re-assessed after the procedure. After I obtained informed consent, the scope waspassed under direct vision. All instruments were visually inspected immediatelybefore and after removal from the patient to ensure they are fully intact. Throughout the procedure, the patient's bloodpressure, pulse, and oxygen saturations were monitored continuously. The colonoscopy wasperformed without difficulty. The patient tolerated the procedure well. The qualityof the bowel preparation was good. The PCF-180AL Colonoscope ([id number]) was introducedthrough the anus and advanced to the cecum, identified by appendiceal orifice andileocecal valve. Findings & Specimens: Hemorrhoids were found on perianal exam. Two sessile polyps were found in the descending colon. The polypswere 3 mm in size. These polyps were removed with a cold snare. Resection and retrieval were complete.Verification of patient identification for the specimen was done by the physician and nurseusing the patient's name and date. The pathology specimen was placed into Bottle Number 1. Internal hemorrhoids were found during retroflexion. Impression: - Hemorrhoids found on perianal exam. - Two 3 mm polyps in the descending colon, removedwith a cold snare. Resected and retrieved. - Internal hemorrhoids. Recommendation: - [facility] The signs and symptoms of potential delayed complications were discussed withthe patient. Return to normal activities tomorrow. Written discharge instructionswere provided to the patient. - The patient will be observed post-procedure,until all discharge criteria are met. - Discharge patient to home (with escort). - Resume previous diet. - Continue present medications. - Await pathology results. - Repeat colonoscopy date to be determined afterpending pathology results are reviewed for surveillance. Nafisa Vargas DO 07/14/2023 10:22:21 AM This report has been signed electronically. Timoteo Muniz MD GASTRO LOWER * (ABNORMAL) GLUCOSE METER, POINT OF CARE (07/14/2023 9:45 AM EST) Glucose Meter 125(H) 70 - 120 mg/dL 07/14/2023 9:49 AM EST [facility]AT[facility] [place] [facility]-00 Blood Whole blood specimen / Unknown 07/14/2023 9:45 AM EST 07/14/2023 9:49 AM EST Nafisa Vargas DO LAB POINT OF C ARE TEST DOCKED DEVICE UNSOLICITED RESULTS LAB[facility]AT[facility] [place] [address] [place] [address] documented in this encounter Visit Diagnoses Diagnosis Colon cancer screening Special screening for malignant neoplasms, colon documented in this encounter Administered Medications Inactive Administered Medications - up to 3 most recent administrations Medication Order MAR Action Action Date Dose Rate Site isolyte-S pH 7.4 infusion Intravenous, at 100 mL/hr, Plasma-LYTE 148, isolyte-S, and isolyte-S pH 7.4 are considered equivalent - including for MAR barcode scanning., CONTINUOUS, Starting on Thu07/14/23 at 1000, Until Thu07/14/23 at 1502, Pre-Op Continue from Pre-Op 07/14/2023 9:56 AM EST 100 mL/hr New Bag 07/14/2023 9:24 AM EST 100 mL/hr documented in this encounter Active and Recently Administered Medications Times are shown in EST. Continuous Medication Order 07/12/2023 07/13/2023 07/14/2023 isolyte-S pH 7.4 infusion Intravenous, at 100 mL/hr, Plasma-LYTE 148, isolyte-S, and isolyte-S pH 7.4 are considered equivalent - including for MAR barcode scanning., CONTINUOUS, Starting on Thu07/14/23 at 1000, Until Thu07/14/23 at 1502, Pre-Op 0924 (New Bag - Prov ider: Martita Kelley RN)[phone] (Continue from Pre-Op - Provider: Sherif Uriarte CRNA) documented in this encounter Advance Directives Latest Code Status on File Code Status Date Activated Date Inactivated Comments Full Code 09/06/2007 4:39 PM 09/08/2007 6:17 PM Code Status History Code Status Date Activated Date Inactivated Comments Full Code 09/06/2007 1:04 PM 09/06/2007 4:39 PM Full Code 09/02/2007 9:42 AM 09/03/2007 5:34 PM Care Teams Termite Renewal Inspector Relationship Specialty Start Date End Date Timoteo Muniz [facility] [address] [facility] [address] PCP - General Family Medicine 01/20/12 documented as of this encounter
--- OUTSIDE RECORDS SUMMARY | 2023-10-18 20:37 | External Medical Summary | Summary of Care ---
Author Name Unknown Organization [facility] Address [address] [address] [place] [address] Phone [phone] Care Team Providers Care Burner Hand Name Role Phone Timoteo Muniz MD Primary Care Provider [phone]- [phone] Reason for Visit * Reason Onset Date Comments Pre Op Discussion 07/13/2023 PAT call Encounter Details Date Type Department Care Team (Late st Contact Info) Description 07/13/2023 Telephone OR [facility], Operating Room [facility] [address] [place] [address] Nafisa Vargas DO [address] [place] [address] Pre Op Discussion (PAT call) Allergies Active Allergy Reactions Criticality Noted Date Comments Acetaminophen Liver complications (Please comment) High 06/27/2011 Nsaids Edema face/lips/tongue Medium 02/16/2006 documented as of this encounter (statuses as of 07/13/2023) Medications Medication Sig Dispensed Refills Start Date [...] taking.Reported on 06/17/2023 Blood Glucose Monitoring Suppl (FlittoUCH ULTRA SYSTEM) w/Device KITIndications:[place] glucose Use as directed 4 times a day as needed (fluctuating sugar). Use up to four times a day as directed 1 Kit 0 08/05/2017 Active [facility] ULTRASOFT LANCETS MISCIndications:Elev ated glucose Use as directed 4 times a day as needed (fluctuating sugar). Use up to four times a day as directed 1 Box Dosing Unit 11 08/05/2017 Active FlittoUCH ULTRA BLUE STRPIndications:Elev ated glucose USE FOUR [...] Additional Information Patient not taking.Reported on 12/03/2022 [employer]erTouch Verio w/Device KitIndications:DM type 2, not at goal (HCC) Use up to 2 times a day E11.9 1 Kit 0 12/01/2022 Active [employer] Verio In Vitro Strip (Glucose Blood)Indications:DM type [...] 0 06/19/2023 Active Vitamin D3 1.25 MG (38234 UT) Oral CapsuleIndications:V itamin D deficiency Take 1 Capsule by mouth once a week. 4 Capsule 3 06/19/2023 Active Betamethasone Dipropionate 0.05 % External OintmentIndications: Dermatitis [...] hemoglobin A1c goal of less than 7.0% ([facility]) Inject 20 Units under the skin in the morning. 15 mL 1 06/29/2023 Active Fluticasone Propionate 50 MCG/ACT Nasal Suspension (Flonase)Indications :Acute sinusitis, recurrence not specified, unspecified location Administer 2 Sprays into each nostril in the morning. 48 g 0 07/03/2023 Active Hospital, Clinic, or Other Facility Administered Medication Ordered Dose Route Frequency Start Date End Date Status albuterol sulfate (PROVENTIL) (2.5 MG/3ML) 0.083% inhalation solution 2.5 mgIndications:Tobacco use disorder,Bronchitis, complicated,Wheeze 2.5 mg NEBULIZER Q4H PRN 01/27/2019 Active documented as of this encounter (statuses as of 07/13/2023) Active Problems Problem Noted Date Diagnosed Date [...] as of this encounter (statuses as of 07/13/2023) Resolved Problems Problem Noted Date Diagnosed Date [...] as of this encounter (statuses as of 07/13/2023) Immunizations Name Administration Dates Next Due Pneumococcal [...] Upcoming Encounters Date Type Department Care Team (Latest Contact Info) Description 07/14/2023 10:30 AM EST Hospital Encounter ENDO [facility], Endoscopy Room [facility] [address] [place] [phone] Nafisa Vargas DO [address] [place] [address] 07/14/2023 10:30 AM EST - 07/14/2023 11:00 AM EST Surgery ENDO [facility], Endoscopy Room [facility] [address] [place] [address] Nafisa Vargas DO [address] [place] [address] COLONOSCOPY FLEXIBLE PROXIMAL DIAGNOSTIC 08/05/2023 4:15 PM EST Imaging Radiology [address] [place] [address] 08/07/2023 11:00 AM EST [facility] [address] [phone] Parviz Arzola MD [address] [place] [address] 08/12/2023 7:15 AM EST Appointment Radiology, [address] [address] 08/12/2023 8:45 AM EST Appointment Radiology, [address] [address] 08/12/2023 9:45 AM EST Appointment Radiology, [address] [address] 08/12/2023 11:45 AM EST Appointment Radiology, [address] [address] 09/18/2023 1:00 PM EST Office Visit [facility] [address] [facility] [phone] Parviz Arzola MD [address] [facility] [address] Scheduled Procedures Name Priority Associated Diagnoses Date/Ti me COLONOSCOPY FLEXIBLE PROXIMAL DIAGNOSTIC Colon cancer screening 07/14/2023 10:30 AM EST Health Maintenance Due Date Last Done Comments DISCUSS TOBACCO CESSATION (REFER TO SMARTSET #3290) 1970 Hepatitis B (1 of 3 - [...] 9:42 AM 09/03/2007 5:34 PM Care Teams Burner Hand Relationship Specialty Start Date End Date Timoteo Muniz MD [address] [place] [address] PCP - General Family Medicine 01/20/12 documented as of this encounter
--- OUTSIDE RECORDS SUMMARY | 2023-10-18 20:37 | External Medical Summary ---
Author Name Unknown Address Unknown Organization : Laboratory Report Ordering Provider Test Date Status ARIEL AVALOS 07/14/2023 10:27:37 Final Observation Date Value Abnormality Reference (Units ) Status Glucose Point of Care 07/14/2023 10:27:37 125 Above high normal 70-120 (mg/dL) Final Performing Location
--- OUTSIDE RECORDS SUMMARY | 2023-10-18 20:37 | External Medical Summary | Summary of Care ---
Author Name Unknown Organization [facility] Address [address] [place] [facility] [place] [address] Phone [phone] Care Team Providers Care Youth Accommodation Support Worker Name Role Phone Timoteo Muniz MD Primary Care Provider +1- [phone] Encounter Details Date Type Department Care Team (Late st Contact Info) Description 07/06/2023 Refill [facility] [address] [place] [address] Timoteo Muniz MD [address] [place] [address] Vitamin D deficiency Allergies Active Allergy Reactions Criticality Noted Date Comments Acetaminophen Liver complications (Please comment) High 06/27/2011 Nsaids Edema face/lips/tongue Medium 02/16/2006 documented as of this encounter (statuses as of 07/10/2023) Medications Medication Sig Dispensed Refills Start Date [...] taking.Reported on 06/17/2023 Blood Glucose Monitoring Suppl ([employer] ULTRA SYSTEM) w/Device KITIndications:[place] glucose Use as directed 4 times a day as needed (fluctuating sugar). Use up to four times a day as directed 1 Kit 0 08/05/2017 Active [employer] ULTRASOFT LANCETS MISCIndications:Elev ated glucose Use as directed 4 times a day as needed (fluctuating sugar). Use up to four times a day as directed 1 Box Dosing Unit 11 08/05/2017 Active [employer] ULTRA BLUE STRPIndications:Elev ated glucose USE FOUR [...] Additional Information Patient not taking.Reported on 12/03/2022 [employer] Verio w/Device KitIndications:DM type 2, not at goal (HCC) Use up to 2 times a day E11.9 1 Kit 0 12/01/2022 Active [facility] Verio In Vitro Strip (Glucose Blood)Indications:DM type [...] 0 06/19/2023 Active Vitamin D3 1.25 MG (38469 UT) Oral CapsuleIndications:V itamin D deficiency Take [...] hemoglobin A1c goal of less than 7.0% ([facility]) Inject 20 Units under the [...] as of this encounter (statuses as of 07/10/2023) Active Problems Problem Noted Date Diagnosed Date [...] as of this encounter (statuses as of 07/10/2023) Resolved Problems Problem Noted Date Diagnosed Date [...] as of this encounter (statuses as of 07/10/2023) Immunizations Name Administration Dates Next Due Pneumococcal [...] encounter Miscellaneous Notes * Telephone Encounter - Sandra Cruz LPN - 07/10/2023 8:51 AM EST This is pending a prior auth * Telephone Encounter - Timoteo Muniz MD - 07/06/2023 5:30 PM ESTPending Prescriptions: Disp Refills Vitamin D3 1.25 MG (87923 UT) Oral Capsule 12 Cap*0 Sig: Take 1 Capsule by mouth once a week. * Telephone Encounter - Timoteo Muniz MD - 07/06/2023 5:28 PM EST This was sent 06/18/23 - a three month supply Was there a problem with that prescription? documented in this encounter Plan of Treatment Upcoming Encounters Date Type Department Care Team (Latest Contact Info) Description 07/14/2023 10:30 AM EST Hospital Encounter ENDO [facility], Endoscopy Room [facility] [address] [place] [phone] Nafisa Vargas DO [address] [place] [address] 07/14/2023 10:30 AM EST - 07/14/2023 11:00 AM EST Surgery ENDO [facility], Endoscopy Room [facility] [address] [place] [phone] Nafisa Vargas DO [address] [place] [address] COLONOSCOPY FLEXIBLE PROXIMAL DIAGNOSTIC 08/05/2023 4:15 PM EST Imaging Radiology [address] [place] [address] 08/07/2023 11:00 AM EST Office Visit [facility] [address] [facility] [phone] Parviz Arzola MD [address] [place] [address] 08/12/2023 7:15 AM EST Appointment Radiology, [address] [place] [address] 08/12/2023 8:45 AM EST Appointment Radiology, [address] [address] 08/12/2023 9:45 AM EST Appointment Radiology, [address] [address] 08/12/2023 11:45 AM EST Appointment Radiology[address] [address] 09/18/2023 1:00 PM EST Office Visit [facility] [address] [place] [address] DecemberParviz MD [address] [place] [address] Scheduled Procedures Name Priority Associated Diagnoses Date/Ti me COLONOSCOPY FLEXIBLE PROXIMAL DIAGNOSTIC Colon cancer screening 07/14/2023 10:30 AM EST Health Maintenance Due Date Last Done Comments DISCUSS TOBACCO CESSATION (REFER TO SMARTSET #2808) 1970 Hepatitis B (1 of 3 - [...] Vitamin D deficiency Unspecified vitamin D deficiency Colon cancer screening Special screening for malignant neoplasms, colon documented in this encounter Advance Directives Latest Code Status on File Code Status Date Activated Date Inactivated Comments Full Code 09/06/2007 4:39 PM 09/08/2007 6:17 PM Code Status History Code Status Date Activated Date Inactivated Comments Full Code 09/06/2007 1:04 PM 09/06/2007 4:39 PM Full Code 09/02/2007 9:42 AM 09/03/2007 5:34 PM Care Teams Youth Accommodation Support Worker Relationship Specialty Start Date End Date Timoteo Muniz MD [address] [place] [address] PCP - General Family Medicine 01/20/12 documented as of this encounter
--- OUTSIDE RECORDS SUMMARY | 2023-10-18 20:37 | External Medical Summary | Summary of Care ---
Author Name Unknown Organization [facility] Address [address] [place] [address] Phone [phone] Care Team Providers Care Electronics Lead Name Role Phone Timoteo Muniz MD Primary Care Provider +1- [phone] Reason for Visit * Reason Onset Date Comments Advice 04/30/2023 Encounter Details Date Type Department Care Team (Late st Contact Info) Description 04/30/2023 Telephone [facility] [address] [place] [address] Timoteo Muniz MD [address] [place] [address] Advice Allergies Active Allergy Reactions Criticality Noted Date Comments Acetaminophen Liver complications (Please comment) High 06/27/2011 Nsaids Edema face/lips/tongue Medium 02/16/2006 documented as of this encounter (statuses as of 07/30/2023) Medications Medication Sig Dispensed Refills Start Date [...] taking.Reported on 06/17/2023 Blood Glucose Monitoring Suppl ([employer] ULTRA SYSTEM) w/Device KITIndications:[place]aliha vated glucose Use as directed 4 times a day as needed (fluctuating sugar). Use up to four times a day as directed 1 Kit 0 7 Active [employer] ULTRASOFT LANCETS MISCIndications:El evated glucose Use as directed 4 times a day as needed (fluctuating sugar). Use up to four times a day as directed 1 Box Dosing Unit 11 7 Active Wayward LabsTOUCH ULTRA BLUE STRPIndications:El evated glucose USE FOUR [...] 5 9 Active FLOVENT HFA 110 MCG/ACT inhalerIndications :Bronchitis, complicated,Tobacc o use disorder,Wheeze INHALE 2 PUFFS BY MOUTH 2 TIMES A DAY 36 g 3 0 Active Additional Information Patient not taking.Reported on 12/03/2022 OneTouch Verio w/Device KitIndications:DM type 2, not [...] Omeprazole 40 MG Oral Capsule Delayed Release (PriLOSEC)Indicati ons:Abdominal pain, epigastric Take 1 Capsule by mouth in the morning. 1 hour before the first meal of the day. 90 Capsule 3 3 Active Cholecalciferol (VITAMIN D3) 32002 units CapsuleIndications :Vitamin D deficiency Take 1 Cap by mouth once a week. 4 Cap 3 9 023 Discontinued(Re fill) Betamethasone Dipropionate 0.05 % ointmentIndication s:Dermatitis apply to the hands twice daily as needed 45 g 2 0 023 Discontinued(Re fill) fluticasone (FLONASE) 50 MCG/ACT nasal sprayIndications:A cute sinusitis, recurrence not specified, unspecified location ADMINISTER 2 SPRAYS INTO EACH NOSTRIL DAILY. 16 g 2 0 023 Discontinued(Re fill) metFORMIN ER (GLUCOPHAGE XR) 500 MG TB24 TAKE ONE TABLET BY MOUTH 2 TIMES A DAY WITH MORNING AND EVENING MEALS 90 Tab 0 0 023 Discontinued(Re fill) Mupirocin 2 % External Ointment (Bactroban) APPLY TO AFFECTED AREA 3 TIMES A DAY FOR 14 DAYS. 22 g 0 1 023 Discontinued(Re fill) Albuterol Sulfate HFA 108 (90 Base) MCG/ACT Inhalation Aerosol SolutionIndication s:Bronchitis, complicated INHALE 2 PUFFS BY MOUTH EVERY 4 HOURS NEEDED FOR WHEEZING. 54 g 1 1 023 Discontinued(Re fill) Polyethylene Glycol 3350 17 GM/SCOOP Oral Powder (Miralax)Indicatio ns:Irritable bowel syndrome DISSOLVE ONE HEAPING TABLESPOON IN 8 OZ OF WATER OR JUICE-1 OR 2 DOSES 2 TIMES DAILY 527 g 0 1 023 Discontinued(Re fill) Ondansetron 4 MG Oral Tablet Disintegrating (Zofran)Indication s:Nausea dissolve on tongue. 60 Tablet 0 3 023 Discontinued Dicyclomine HCl 10 MG Oral Capsule (Bentyl)Indication s:Irritable bowel syndrome, unspecified type Take 1 Capsule by mouth 3 times a day as needed for Cramping. 30 Capsule 2 3 023 Discontinued(Re fill) Levothyroxine Sodium 112 MCG Oral Tablet (Levoxyl)Indicatio ns:Other specified hypothyroidism Take 2 Tablets by mouth daily first thing in the morning. (at least 30 min prior to breakfast or other meds) 90 Tablet 1 3 023 Discontinued(Re fill) Insulin Glargine 100 UNIT/ML Subcutaneous Solution Pen-injector (Lantus) Inject 7 Units under the skin in the morning. 1 Each 0 3 023 Discontinued(Re fill) Hospital, Clinic, or Other Facility Administered Medication Ordered Dose Route Frequency Start Date End Date Status albuterol sulfate (PROVENTIL) (2.5 MG/3ML) 0.083% inhalation solution 2.5 mgIndications:Tobacco use disorder,Bronchitis, complicated,Wheeze 2.5 mg NEBULIZER Q4H PRN 01/27/2019 Active documented as of this encounter (statuses as of 07/30/2023) Active Problems Problem Noted Date Diagnosed Date [...] as of this encounter (statuses as of 07/30/2023) Resolved Problems Problem Noted Date Diagnosed Date [...] as of this encounter (statuses as of 07/30/2023) Immunizations Name Administration Dates Next Due Pneumococcal [...] encounter Miscellaneous Notes * Telephone Encounter - Feli Jones LPN - 05/01/2023 11:55 AM EDT Left message on machine to return call to the office. Please see message below. Looks like she has an appointment scheduled for Thursday-this can be discussed then. * Telephone Encounter - Timoteo Muniz MD - 04/30/2023 5:19 PM EDT Have not seen for over 4 years. Would not be able to give something for anxiety/sleep without office visit. * Telephone Encounter - Beverly Mendez RN - 04/30/2023 2:11 PM EDT Provider to address: pt was dc'd from [facility] yesterday for SBO. She is still having a lot of abd cramping/pain and is not able to keep food down. She is using the dicyclomine and zofran with only a little relief. Currently she is able to tolerated sips of water only. She did have food before she leftthe hospital yesterday but vomited it up when she got home. I encouraged her to go back to the hospital since she is not able to tolerate PO but she refused. She finally agreed to go tonight if she has not improved. She is hoping Dr Muniz will give her something for her anxiety/sleep. She feel she has not gotten a good night's sleep in days. Reason for Call: Advice Contact: Telephone Call Contact Type: Advice Outcome: see above Face to face time spent with Patient (minutes): 0 Total Time including non face to face (minutes): 10 documented in this encounter Plan of Treatment Upcoming Encounters Date Type Department Care Team (Late st Contact Info) Description 08/05/2023 4:15 PM EST Imaging Radiology [facility] [address] [place] [address] 08/07/2023 11:00 AM EST Office Visit [address] [place] [phone] Parviz Arzola MD [address] [place] [address] 08/12/2023 7:15 AM EST Appointment Radiology, [address] [place] [address] 08/12/2023 8:45 AM EST Appointment Radiology, [address] [address] 08/12/2023 9:45 AM EST Appointment Radiology, [address] [address] 08/12/2023 11:45 AM EST Appointment Radiology, [address] [address] 09/18/2023 1:00 PM EST Office Visit [facility] [address] [place] [address] DecemberPraviz MD [address] [place] [address] Scheduled Procedures Name Priority Associated Diagnoses Date/Ti me COLONOSCOPY FLEXIBLE PROXIMA L DIAGNOSTIC Recall History of colonic polyps Health Maintenance Due Date Last Done Comments DISCUSS TOBACCO CESSATION (REFER TO SMARTSET #9620) 1970 Hepatitis B (1 of 3 - 3-dose series) 1970 COVID-19 Vaccine (#1) 1970 Albumin/Creatinine Ratio 1989 Alpha-1 Antitrypsin 1989 Pneumococcal Vaccine: Pediatrics (0 to 5 Years) and At-Risk Patients (6 to 64 Years) (2 - PCV) 06/29/2013 06/29/2012 DTaP,Tdap,and Td Vaccines (2 - Td or [...] 07/14/2023, 06/18, 12/08/2000 Colorectal Cancer Screening Discontinued Cologuard Discontinued Fecal Occult Blood Test Discontinued [...] AM 09/03/2007 5:34 PM Care Teams Electronics Lead Relationship Specialty Start Date End Date Timoteo Muniz MD [address] [place] [address] PCP - General Family Medicine 01/20/12 documented as of this encounter
--- OUTSIDE RECORDS SUMMARY | 2023-10-18 20:37 | External Medical Summary | Summary of Care ---
Author Name Unknown Organization [facility] Address [address] [place] [address] Phone [phone] Care Team Providers Care Cone Picker Name Role Phone Timoteo Muniz MD Primary Care Provider +1- [phone] Reason for Visit * Reason Comments Physical-Exam Needs 30 days supply of Lantus, and test strips Encounter Details Date Type Department Care Team (Late st Contact Info) Description 08/07/2023 11:00 AM EST Office Visit [facility] [address] [place] [address] Parviz Arzola MD [address] [place] [address] Acute gout involving toe of left foot, unspecified cause*; Type 2 diabetes mellitus with hemoglobin A1c goal of less than 7.0% (HCC); DM type 2, not at goal ([facility]); Tobacco use disorder; Other specified hypothyroidism; Immunization due Allergies Active Allergy Reactions Criticality Noted Date [...] taking.Reported on 06/17/2023 Blood Glucose Monitoring Suppl ([employer] ULTRA SYSTEM) w/Device KITIndications:Elev ated glucose Use as directed 4 times a day as needed (fluctuating sugar). Use up to four times a day as directed 1 Kit 0 08/05/2017 Active [employer] ULTRASOFT LANCETS MISCIndications:Maliha vated glucose Use as directed 4 times a day as needed (fluctuating sugar). Use up to four times a day as directed 1 Box Dosing Unit 11 08/05/2017 Active [employer] ULTRA BLUE STRPIndications:Maliha vated glucose USE FOUR [...] A DAY 36 g 3 02/08/2020 Active [employer] TechnologiesTouch Verio w/Device KitIndications:DM type 2, not at [...] taking.Reported on 07/13/2023 Vitamin D3 1.25 MG (30080 UT) Oral CapsuleIndications: Vitamin D deficiency Take [...] TONGUE DIRECTED. 60 Tablet 0 06/25/2023 Active Fluticasone Propionate 50 MCG/ACT Nasal Suspension [...] day E11.9 300 Strip 11 08/07/2023 Active OneTouch Verio In Vitro Strip (Glucose Blood)Indications:D M type 2, not at goal (HCC) Use up to 2 times a day E11.9 100 Strip 11 12/01/2022 08/07/20 23 Discontinu ed(Refill) Insulin Glargine 100 UNIT/ML Subcutaneous Solution Pen-injector (Lantus)Indications :Type 2 diabetes mellitus with hemoglobin A1c goal of less than 7.0% (HCC) Inject 20 Units under the skin in the morning. 15 mL 1 06/29/2023 08/07/20 Discontinu ed(Refill) Hospital, Clinic, or Other Facility Administered Medication Ordered Dose Route Frequency Start Date End Date Status albuterol sulfate (PROVENTIL) (2.5 MG/3ML) 0.083% inhalation solution 2.5 mgIndications:Tobacco use disorder,Bronchitis, complicated,Wheeze 2.5 mg NEBULIZER Q4H PRN 01/27/2019 Active ketorolac (Toradol) 60 MG/2ML IM inj 60 mgIndications:Acute gout involving toe of left foot, unspecified cause 60 mg IM ONCE 08/07/2023 08/07/2023 Ended documented as of this encounter (statuses as [...] Next Due Pneumococcal Conjugate Vacci ne, 20-valent ([id number]) 08/07/2023 Pneumococcal Polysaccharide PPV23 (Pneumovax) 06/29/2012,03/02/2009(Deferred: Contraindication [...] Sign Reading Time Taken Comments Blood Pressure 138/90 08/07/2023 10:54 AM EST Pulse 98 08/07/2023 10:54 AM EST Temperature 36.7 C (98.1 F) 08/07/2023 10:[address] Respiratory Rate 16 08/07/2023 10:54 AM EST Oxygen Saturation - - Inhaled Oxygen Concentration - - Weight 89.8 kg (198 lb) 08/07/2023 10:54 AM EST Height 160 cm (5' 3") 08/07/2023 10:54 AM EST Body Mass Index 35.07 08/07/2023 10:54 AM EST documented in this encounter Progress Notes * Parviz Arzola MD - 08/07/2023 10:58 AM EST Images from the original note were not included. Assessment and Plan 1. Type 2 diabetes mellitus with hemoglobin A1c goal of less than 7.0% (HCC) Uncontrolled with A1c 10.0 on 06/17/2023. Continue glargine 24 units daily and metformin 1000 mg twice daily. One-month supply of insulin sent to the pharmacy. Lab work as below on September 17, 2023 which will be reviewed at 09/18/2023 appointment. - Insulin Glargine 100 UNIT/ML Subcutaneous Solution Pen-injector (Lantus); Inject 24 Units under the skin in the morning. Dispense: 9 mL; Refill: 11 - LIPID PANEL WITH DIRECT LDL IF TG IS HIGH; Future - HEMOGLOBIN A1C; Future - ALBUMIN / CREATININE RATIO, URINE; Future - COMPREHENSIVE METABOLIC PANEL; Future - VITAMIN B12; Future 2. DM type 2, not at goal (HCC) - OneTouch Verio In Vitro Strip (Glucose Blood); Use up to 4 times a day E11.9 Dispense: 300 Strip;Refill: 11 3. Acute gout involving toe of left foot, unspecified cause Toradol in office today. Uric acid once flare has resolved. - ketorolac (Toradol) 60 MG/2ML IM inj 60 mg - URIC ACID; Future 4. Tobacco use disorder Down to less than half a pack per day. 5. Other specified hypothyroidism Severely uncontrolled in January 2023. She was restarted on her prior dose in his now overmedicated. Levothyroxine was decreased from 237 mcg daily to 200 mcg daily. TSH in September 2023. - TSH WITH FREE T4 IF INDICATED; Future 6. Immunization due - PNEUMOCOCCAL VACC, PCV20, IM ([id number]) Wrap-Up Follow up yearly for physical. History of Present Illness The patient is a 53 year old female with past medical history of uncontrolled type II diabetes [id number] in June 2023, hypothyroidism, COPD, IBS, migraine, tobacco use, CKD stage 3a, depressionwho presents for follow up. 53-year-old female who presents with multiple complaints. She was uncontrolled diabetes with A1c 10.0 in June 2023. She currently takes glargine 24 units daily. She was also on metformin 1000 mg twice daily. We are monitoring her renal function as she does have chronic kidney disease which may require metformin being discontinued at some point moving forward. She needs a one-month supply of insulin. She has been referred to [facility] but has not yet scheduled. She is currently dealing with a gout flare of the great toe of the left foot. This has been ongoingfor 4-5 days. She was requesting Toradol as this worked for her when she was in the ED a couple of days ago. She continues to be worked up by GI for chronic abdominal pain. She has a gastric emptying study scheduled for 08/11/2023. From a health maintenance perspective she was up-to-date on her flu shot. She plans to get a COVID shot after the holidays. She was agreeable to Prevnar 20 today. Physical Exam Vitals: 08/07/23 1054 Resp: 16 BMI: 35.08 Physical Exam Physical Exam Vitals reviewed. Constitutional: General: She is not in acute distress. Pulmonary: Effort: Pulmonary effort is normal. No respiratory distress. Neurological: General: No focal deficit present. Mental Status: She is alert. Psychiatric: Mood and Affect: Mood normal. Behavior: Behavior normal. documented in this encounter Nursing Notes * Camryn Reid LPN - 08/07/2023 11:01 AM EST The patient has been properly identified by confirmation of name and date of . Chief Complaint Patient presents with Physical-Exam Needs 30 days supply of Lantus, and test strips documented in this encounter Plan of Treatment Upcoming Encounters Date Type Department Care Team (Late st Contact Info) Description 08/12/2023 7:15 AM EST Appointment Radiology, [address] [place] [address] 08/12/2023 8:45 AM EST Appointment [address] [address] 08/12/2023 9:45 AM EST Appointment [facility], [address] [place] [address] 08/12/2023 11:45 AM EST Appointment [address] [place] [address] 08/27/2023 4:15 PM EST Imaging Radiology [facility], [address] [place] [address] 09/18/2023 1:00 PM EST [facility] [address] [facility] [phone] Parviz Arzola MD [address] [facility] [id number] Scheduled Orders Name Type Priority Associated Diagnoses Orde r Schedule URIC ACID Lab Routine Acute gout involving toe of left foot, unspecified cause Expected: 08/07/2023 (Approximate), Expires: 08/06/2024 LIPID PANEL WITH DIRECT LDL IF TG IS HIGH Lab Routine Type 2 diabetes mellitus with hemoglobin A1c goal of less than 7.0% (HCC) Expected: 08/07/2023, Expires: 08/07/2024 HEMOGLOBIN A1C Lab Routine Type 2 diabetes mellitus with hemoglobin A1c goal of less than 7.0% (HCC) Expected: 08/07/2023 (Approximate), Expires: 08/06/2024 ALBUMIN / CREATININE RATIO, URINE Lab Routine Type 2 diabetes mellitus with hemoglobin A1c goal of less than 7.0% (HCC) Expected: 08/07/2023 (Approximate), Expires: 08/06/2024 COMPREHENSIVE METABOLIC PANEL Lab Routine Type 2 diabetes mellitus with hemoglobin A1c goal of less than 7.0% (HCC) Expected: 08/07/2023 (Approximate), Expires: 08/06/2024 VITAMIN B12 Lab Routine Type 2 diabetes mellitus with hemoglobin A1c goal of less than 7.0% (HCC) Expected: 08/07/2023 (Approximate), Expires: 08/06/2024 TSH WITH FREE T4 IF INDICATED Lab Routine Other specified hypothyroidism Expected: 08/07/2023 (Approximate), Expires: 08/06/2024 Scheduled Procedures Name Priority Associated Diagnoses Date/Ti me COLONOSCOPY FLEXIBLE PROXIMA L DIAGNOSTIC Recall History of colonic polyps Health Maintenance Due Date Last Done Comments DISCUSS TOBACCO CESSATION (REFER TO SMARTSET #1572) 1970 Hepatitis B (1 of 3 - [...] of this encounter Visit Diagnoses Diagnosis Acute gout involving toe of left foot, unspecified cause- Primary Type 2 diabetes mellitus with hemoglobin A1c goal of less than 7.0% (HCC) DM type 2, not at goal (HCC) Type II or unspecified type diabetes mellitus without mention of complication, not stated as uncontrolled Tobacco use disorder Other specified hypothyroidism Immunization due Need for prophylactic vaccination and inoculation against unspecified single disease documented in this encounter Administered Medications Inactive Administered Medications - up to 3 most recent administrations Medication Order MAR Action Action Date Dose Rate Site ketorolac (Toradol) 60 MG/2ML IM inj 60 mg 60 mg, Intramuscular, ONCE, On Thu08/07/23 at 1200, For 1 dose Given 08/07/2023 11:32 AM EST 60 mg Dorsogluteal Right documented in this encounter Advance Directives Latest Code Status on File Code Status Date Activated Date Inactivated Comments Full Code 09/06/2007 4:39 PM 09/08/2007 6:17 PM Code Status History Code Status Date Activated Date Inactivated Comments Full Code 09/06/2007 1:04 PM 09/06/2007 4:39 PM Full Code 09/02/2007 9:42 AM 09/03/2007 5:34 PM Care Teams Cone Picker Relationship Specialty Start Date End Date Timoteo Muniz MD [address] [place] [address] PCP - General Family Medicine 01/20/12 documented as of this encounter
--- OUTSIDE RECORDS SUMMARY | 2023-10-18 20:37 | External Medical Summary | Summary of Care ---
Author Name Unknown Organization [facility] Address [address] [place] [address] Phone [phone] Care Team Providers Care Channel Partners Name Role Phone Timoteo Muniz MD Primary Care Provider +1- [phone] Reason for Visit * Reason Onset Date Comments Referral 07/15/2023 [facility] Discharge ( DM ) Encounter Details Date Type Department Care Team (Late st Contact Info) Description 07/15/2023 Telephone Pharmacy, [facility] [address] [place] [address] [facility] [address], [place] [id number] Referral ([facility] Discharge ( DM ) ) Allergies Active Allergy Reactions Criticality Noted Date Comments Acetaminophen Liver complications (Please comment) High 06/27/2011 Nsaids Edema face/lips/tongue Medium 02/16/2006 documented as of this encounter (statuses as of 07/15/2023) Medications Medication Sig Dispensed Refills Start Date [...] taking.Reported on 06/17/2023 Blood Glucose Monitoring Suppl ([employer] ULTRA SYSTEM) w/Device KITIndications:[place] marko glucose Use as directed 4 times a day as needed (fluctuating sugar). Use up to four times a day as directed 1 Kit 0 08/05/2017 Active [employer] ULTRASOFT LANCETS MISCIndications:Elev ated glucose Use as directed 4 times a day as needed (fluctuating sugar). Use up to four times a day as directed 1 Box Dosing Unit 11 08/05/2017 Active [employer] ULTRA BLUE STRPIndications:Elev ated glucose USE FOUR [...] Additional Information Patient not taking.Reported on 12/03/2022 [employer]Touch Verio w/Device KitIndications:DM type 2, not at goal (HCC) Use up to 2 times a day E11.9 1 Kit 0 12/01/2022 Active [employer] Verio In Vitro Strip (Glucose Blood)Indications:DM type [...] taking.Reported on 07/13/2023 Vitamin D3 1.25 MG (76065 UT) Oral CapsuleIndications:V itamin D deficiency Take [...] goal of less than 7.0% ([facility]) Inject 20 Units under the skin in the morning. 15 mL 1 06/29/2023 Active Fluticasone Propionate 50 MCG/ACT Nasal Suspension (Flonase)Indications :Acute sinusitis, recurrence not specified, unspecified location Administer 2 Sprays into each nostril in the morning. 48 g 0 07/03/2023 Active Additional Information Patient not taking.Reported on 07/13/2023 Hospital, Clinic, or Other Facility Administered Medication Ordered Dose Route Frequency Start Date End Date Status albuterol sulfate (PROVENTIL) (2.5 MG/3ML) 0.083% inhalation solution 2.5 mgIndications:Tobacco use disorder,Bronchitis, complicated,Wheeze 2.5 mg NEBULIZER Q4H PRN 01/27/2019 Active documented as of this encounter (statuses as of 07/15/2023) Active Problems Problem Noted Date Diagnosed Date [...] as of this encounter (statuses as of 07/15/2023) Resolved Problems Problem Noted Date Diagnosed Date [...] as of this encounter (statuses as of 07/15/2023) Immunizations Name Administration Dates Next Due Pneumococcal [...] encounter Miscellaneous Notes * Telephone Encounter - Joyce Land, mat sewer - 07/15/2023 11:38 AM EST Daiana has not contacted the clinic to schedule/reschedule an appointment for diabetes management per referral from PCP despite multiple requests (via phone, letter and/or [facility]) to do so by our team. Patient is discharged from [facility] services at this time. Thank you, Joyce Land [employer] [facility] ([facility] [phone] 07/15/2023,11:38 AM documented in this encounter Plan of Treatment Upcoming Encounters Date Type Department Care Team (Late st Contact Info) Description 08/05/2023 4:15 PM EST Imaging Radiology [address], [address] [place] [address] 08/07/2023 11:00 AM EST [facility] [address] [facility] [phone] Parviz Arzola MD [address] [place] [facility] [place] [address] 08/12/2023 7:15 AM EST Appointment Radiology, [address] [address] 08/12/2023 8:45 AM EST Appointment Radiology, [address] [address] 08/12/2023 9:45 AM EST Appointment Radiology, [address] [address] 08/12/2023 11:45 AM EST Appointment [facility], [address] [address] 09/18/2023 1:00 PM EST Office Visit [facility] [address] [facility] [phone] Parviz Arz[facility] MD [address] [facility] [address] Health Maintenance Due Date Last Done Comments DISCUSS TOBACCO CESSATION (REFER TO SMARTSET #1422) 1970 Hepatitis B (1 of 3 - [...] IN PAST YEAR FOR COPD 07/14/2024 07/14/2023 Colonoscopy 07/14/2033 07/14/2023, 12/08/2000 Colorectal Cancer Screening [...] 9:42 AM 09/03/2007 5:34 PM Care Teams Channel Partners Relationship Specialty Start Date End Date Timoteo Muniz MD [address] [place] [address] PCP - General Family Medicine 01/20/12 documented as of this encounter
--- OUTSIDE RECORDS SUMMARY | 2023-10-18 20:37 | External Medical Summary ---
Author Name Unknown Address Unknown Organization : Laboratory Report Ordering Provider Test Date Status ARIEL AVALOS 07/14/2023 09:45:46 Final Observation Date Value Abnormality Reference (Units ) Status Glucose Point of Care 07/14/2023 09:45:46 125 Above high normal 70-120 (mg/dL) Final Performing Location
--- NOTE | 2023-10-18 20:46 | Emergency Department Note ---
ED Provider Note History of Present Illness Chief Complaint: Vomiting Stated Complaint: NAUSEA, VOMITING, ABDOMINAL PAIN Time Seen by Provider: 10/18/23 20:45 This is a 53-year-old female with a history of type 2 diabetes, irritable bowel syndrome, small bowel obstruction, who presents to the emergency department with right upper abdominal pain and vomiting. Her symptoms started 2 days ago and worsened yesterday. She initially had a little bit of diarrhea that was nonbloody but the diarrhea subsided. She describes the abdominal pain as cramping and "like a charley horse". She tried taking dicyclomine without any relief. Endorses abdominal bloating. She has felt hot but denies any known fevers. Denies any urinary symptoms, chest pain, shortness of breath. History of cholecystectomy appendectomy, and hysterectomy. Denies any sore throat, congestion, or cough. Blood sugars have been in the 150-200 range recently. She is taking her medications as prescribed. Home Medications Medication Instructions Recorded Confirmed Type blood sugar diagnostic (TicTacTiuch #100 ea 12/01/22 10/19/23 Rx Verio test strips) omeprazole 40 mg capsule,delayed 40 mg PO DAILYBB 01/14/23 10/19/23 History release ondansetron 4 mg disintegrating 4 mg translingual DIRECTED PRN 04/24/23 10/19/23 History tablet NAUSEA/VOMITING blood sugar diagnostic (OneTouch #100 ea 04/29/23 10/19/23 Rx Verio test strips) dicyclomine 10 mg capsule 10 mg PO TID PRN abdominal pain 04/29/23 10/19/23 Rx #20 caps lancets 33 gauge (Oneuch Raina #100 ea 04/29/23 10/19/23 Rx Plus Lancet) pen needle, diabetic 32 gauge x #100 ea 04/29/23 10/19/23 Rx 5/32" (Pen Needle) albuterol sulfate 90 mcg/actuation 2 puff inhalation Q4 PRN Shortness 07/01/23 10/19/23 History aerosol inhaler Of Breath Or Wheezing fluticasone propionate 50 1 spray intranasal DAILY PRN 07/01/23 10/19/23 History mcg/actuation nasal Congestion spray,suspension insulin glargine 100 unit/mL (3 24 unit subcut QAM 07/01/23 10/19/23 History mL) subcutaneous pen levothyroxine 200 mcg tablet 200 mcg PO DAILYBB 07/01/23 10/19/23 History metformin 500 mg tablet,extended 1,000 mg PO AMPM 07/01/23 10/19/23 History release 24 hr magnesium chloride 64 mg 64 mg PO BID #60 tabs 07/04/23 10/19/23 Rx (magnesium chloride) tablet,delayed release (Mag 64) metoclopramide HCl 5 mg tablet 5 mg PO TID PRN nausea and 07/04/23 10/19/23 Rx (Reglan) vomiting #20 tabs gabapentin 300 mg capsule 300 mg PO HS 10/19/23 10/19/23 History Allergies Allergy/AdvReac Type Severity Reaction Status Date / Time nabumetone Allergy Intermediate swelling Verified 07/01/23 18:24 NSAIDS (Non-Steroidal Allergy Intermediate SWELLING Verified 07/01/23 18:24 Anti-Inflamma acetaminophen AdvReac Intermediate VOMITING, Verified 07/01/23 18:24 RASH--RAISES LIVER ENZYMES Past Med/Surg History Medical History Nausea and vomiting Migraine Depression Endometriosis IBS (irritable bowel syndrome) Hypothyroidism Social History Smoking Status: Current every day smoker Tobacco Type: Cigarettes Cigarettes Per Day: 10 cigarettes (1/2 pack); Second Hand Exposure: Yes; Do You Dip or Chew Tobacco: No; Hx Alcohol Use: No Hx Substance Use: No Preferred Language: Beninese Communication Ability: Effective City Assessor Required: No Beliefs That Will Affect Care: None Current Living Situation: Family Current Living Situation Comment: father staying w/ pt and grandson Feels Safe at Home: Yes Assistive Devices: None Physical Exam Vital Signs Vital Signs - 24 hr 10/18/23 20:33 10/18/23 21:12 10/18/23 21:14 Temperature 97.5 F L Temperature Source Temporal Artery Scan Pulse Rate 99 H 81 Pulse Rate [Apical] Pulse Rhythm [Apical] Pulse Strength [Apical] Respiratory Rate 18 Respiratory Effort / Characteristics Respiratory Depth Respiratory Pattern Blood Pressure 165/108 H Blood Pressure [Right Arm] Blood Pressure Mean 127 Blood Pressure Mean [Right Arm] Pulse Oximetry 98 98 Oxygen Delivery Method Room Air Room Air Sepsis Recent Fever Within 48 Hours No Sepsis New/Unexplained Change in Mental Status No Sepsis Action Taken by Nursing No Action Required 10/18/23 21:45 10/18/23 22:52 Temperature Temperature Source Pulse Rate Pulse Rate [Apical] 67 89 Pulse Rhythm [Apical] Regular Regular Pulse Strength [Apical] Normal Normal Respiratory Rate 18 19 Respiratory Effort / Characteristics Non-Labored Spontaneous Non-Labored Spontaneous Respiratory Depth Normal Normal Respiratory Pattern Regular Regular Blood Pressure Blood Pressure [Right Arm] 170/103 H 169/91 H Blood Pressure Mean Blood Pressure Mean [Right Arm] 125 117 Pulse Oximetry 98 97 Oxygen Delivery Method Room Air Room Air Sepsis Recent Fever Within 48 Hours Sepsis New/Unexplained Change in Mental Status Sepsis Action Taken by Nursing CONSTITUTIONAL: Well developed, well nourished, appears uncomfortable, in pain, nauseous, holding the right side of her abdomen. EYES: conjunctivae normal, extraocular muscles intact. No scleral icterus ENMT: External ears normal. Nose with normal external appearance, no congestion. Oral mucous membranes slightly dry. Oropharynx otherwise normal. NECK: Full active range of motion. LYMPHATIC: No cervical adenopathy RESPIRATORY: Breathing unlabored and symmetric. Lungs clear to auscultation bilaterally. No wheeze, rales, or rhonchi. CARDIOVASCULAR: Regular rate and rhythm. No murmurs, rubs, or gallops. ABDOMEN: Normal bowel sounds. Abdomen is soft with diffuse upper tenderness. No peritonitis. No CVA tenderness bilaterally. MUSCULOSKELETAL: Moves all extremities at all joints without pain or difficulty. No cyanosis or edema. Back with full range of motion. SKIN: [place], warm, dry. NEUROLOGIC: Awake, alert, oriented. No focal deficits PSYCHIATRIC: Appropriate. Normal affect Course Administered Medications Discontinued Medications Sodium Chloride (Nss) 1,000 mls @ 999 mls/hr IV .Q1H1M STA Stop: 10/18/23 21:59 Last Infusion: 10/18/23 22:15 Dose: Infused Documented By: Admin: 10/18/23 21:14 Dose: 999 mls/hr Documented By: HARITHA Famotidine (Pepcid 20mg Iv Push) 20 mg in 5 mls @ 2.5 mls/min IV NOW STA Stop: 10/18/23 23:25 Last Admin: 10/18/23 23:30 Dose: 2.5 mls/min Documented By: CASSIA Ioversol (Optiray 320 500ml) 90 ml IV ONCE ONE Stop: 10/18/23 22:09 Last Admin: 10/18/23 22:08 Dose: 90 ml Documented By: CYNDIE Metoclopramide HCl (Metoclopramide Hcl Inj 5 Mg/Ml 2 Ml Vial) 5 mg IV ONE ONE Stop: 10/18/23 22:44 Last Admin: 10/18/23 22:51 Dose: 5 mg Documented By: WIL Morphine Sulfate (Morphine Sulfate 4 Mg/Ml 1 Ml Carp\\Vial) 4 mg IV NOW STA Stop: 10/18/23 21:01 Last Admin: 10/18/23 21:14 Dose: 4 mg Documented By: HARITHA Ondansetron HCl (Ondansetron Inj 2 Mg/Ml 2 Ml Vial) 4 mg IV NOW STA Stop: 10/18/23 21:01 Last Admin: 10/18/23 21:14 Dose: 4 mg Documented By: HARITHA Medical Decision Making Differential Diagnosis Small bowel obstruction, gastroenteritis, diverticulitis, gastroparesis, irritable bowel syndrome, mesenteric adenitis, DKA, DIANE, dehydration, electrolyte imbalance, epiploic appendagitis, infarct, gastritis, pancreatitis, doubt pneumonia, myocardial infarction, UTI, pyelonephritis, among other pathology Medical Records Attestation: I reviewed the patient's medical records. (Reviewed prior ED notes, patient has been evaluated for similar symptoms in the past) Laboratory Data 10/18/23 Unknown 10/18/23 Unknown Lab Results 10/18/23 Range/Units Unknown WBC 8.71 (4.8-10.8) K/ul RBC 4.94 (4.20-5.40) M/uL Hgb 14.5 (12.0-16.0) g/dl Hct 43.4 (37.0-47.0) % MCV 87.9 (80.0-100.0) fL MCH 29.4 (25.0-34.0) pg MCHC 33.4 (32.0-36.0) g/dL RDW Std Deviation 45.5 (36.4-46.3) fL RDW Coeff of Adolfo 14.1 (11.5-14.5) % Plt Count 276 (130-400) K/uL MPV 8.9 L (9.4-12.4) fL Immature Gran % (Auto) 0.5 % Neut % (Auto) 71.8 % Lymph % (Auto) 21.4 % [place] % (Auto) 4.6 % Eos % (Auto) 0.7 % Baso % (Auto) 1.0 % Neut # (Auto) 6.26 (1.40-6.50) K/uL Lymph # (Auto) 1.86 (1.20-3.40) K/uL [place] # (Auto) 0.40 (0.11-0.59) K/uL Eos # (Auto) 0.06 (0.00-0.50) K/uL Baso # (Auto) 0.09 (0.00-0.20) K/uL Immature Gran # (Auto) 0.04 (0.01-0.20) K/uL Sodium 139 (136-145) mmol/L Potassium 3.9 (3.5-5.1) mmol/L Chloride 104 (98-107) mmol/L Carbon Dioxide 25 (21-32) mmol/L Anion Gap 10 (3-11) BUN 17 (6-23) mg/dl Creatinine 1.02 (0.6-1.2) mg/dl Est Cr Clr Drug Dosing 68.6 ml/min Est GFR ( Amer) 73.2 ml/min Est GFR (Non-Af Amer) 63.2 ml/min BUN/Creatinine Ratio 16.7 (10-20) Glucose 182 H (70-99(Fasting)) mg/dl Calcium 8.7 (8.6-10.3) mg/dl Total Bilirubin 0.4 (0.2-1.0) mg/dl AST 16 (13-39) U/L ALT 19 (7-52) U/L Alkaline Phosphatase 87 (34-104) U/L Troponin I High Sens 5.3 (0-14) pg/ml Total Protein 7.7 (6.0-8.3) gm/dl Albumin 4.6 (3.4-5.0) gm/dl Globulin 3.1 (2.5-4.0) gm/dl Albumin/Globulin Ratio 1.5 (0.9-2) Lipase 29 (11-82) U/L Urine Color Yellow Urine Appearance Clear (Clear) Urine pH 5.5 (4.5-7.5) Ur Specific [place] 1.008 (1.000-1.030) Urine Protein Negative (Negative) Urine Glucose (UA) Negative (Negative) Urine Ketones Negative (Negative) Urine Blood Trace H (Negative) Urine Nitrite Negative (Negative) Urine Bilirubin Negative (Negative) Urine Urobilinogen Negative (Negative) Ur Leukocyte Esterase Negative (Negative) Urine WBC (Auto) 1-5 (0-5) /hpf Urine RBC (Auto) 0-4 (0-4) /hpf U Hyaline Cast (Auto) 0 (0-5) /lpf U Epithel Cells (Auto) >30 H (0-5) /lpf Urine Bacteria (Auto) Negative (Negative) Imaging Data Radiologist's Impression: Abdomen/Pelvis CT 10/18/23 21:00 Exam(s): CT ABDOMEN + PELVIS With Contrast IV Amt: 90ML OPTIRAY 320 EXAM: CT Abdomen and Pelvis With Intravenous Contrast CLINICAL HISTORY: Reason for exam: right upper abd pain, vomiting, hx obstruction. TECHNIQUE: Axial computed tomography images of the abdomen and pelvis with intravenous contrast. CTDI is 27.48 mGy and DLP is 1403.54 mGy-cm. Automated exposure control was utilized for the study. A dose lowering technique was utilized adhering to the principles of ALARA. CONTRAST: Patient received 90ML OPTIRAY 320 of IV contrast COMPARISON: No relevant prior studies available. FINDINGS: Lung bases: Unremarkable. No mass. No consolidation. ABDOMEN: Liver: Hepatic steatosis. Gallbladder and bile ducts: Cholecystectomy. No ductal dilation. Pancreas: Unremarkable. No mass. No ductal dilation. Spleen: Unremarkable. No splenomegaly. Adrenals: Unremarkable. No mass. Kidneys and ureters: Unremarkable. No solid mass. No hydronephrosis. Stomach and bowel: Diverticulosis, without acute diverticulitis. No small bowel obstruction. No free intraperitoneal air. PELVIS: Appendix: Appendectomy. Bladder: Unremarkable. No mass. Reproductive: Unremarkable as visualized. ABDOMEN and PELVIS: Intraperitoneal space: Unremarkable. No free air. No significant fluid collection. Bones/joints: Degenerative changes of the spine. No acute fracture. No dislocation. Soft tissues: Unremarkable. Vasculature: Atherosclerotic changes of the aorta. No abdominal aortic aneurysm. Lymph nodes: Unremarkable. No enlarged lymph nodes. IMPRESSION: 1. Hepatic steatosis. 2. Cholecystectomy. 3. Appendectomy. 4. Diverticulosis, without acute diverticulitis. No small bowel obstruction. No free intraperitoneal air. Electronically signed by: Karel Burroughs MD 10/18/23 22:23 PM ECG Data Attestation: I personally reviewed and interpreted this ECG as follows: (Sinus rhythm with a rate of 86. Intervals within normal limits. Normal axis. No acute ST elevation or evidence of ischemia.) MARKY Narrative 53-year-old female with a history above presents to the emergency department with right upper abdominal pain, nausea, and vomiting. She had a small amount of diarrhea. Symptoms began 2 days ago. Patient with similar presentations in the past. See above for further details. She does appear to be a very uncomfortable initially holding the right side of her abdomen. Not actively vomiting. She has some reproducible tenderness in the diffuse upper abdomen. Her heart rate is initially 99. Somewhat hypertensive. Differential diagnosis considered above. Prior ED notes were reviewed. EKG sinus rhythm with no acute findings. IV was inserted and labs were obtained. Patient was given IV fluids, Zofran, and morphine. Labs: No leukocytosis or anemia. Normal renal function. No electrolyte disturbance. No transaminitis. Troponin normal. Lipase normal. Glucose 182 consistent with history of diabetes. CT of the abdomen pelvis was obtained demonstrating no acute process. Patient persisted with abdominal discomfort and nausea and was given Reglan and Pepcid. Patient attempted to drink some Sprite and eat crackers, and subsequently vomited these back up reportedly in the bathroom. I reevaluated her again and she was still feeling very uncomfortable with significant nausea and did not feel that she could be discharged home. [facility] for ongoing management. Case reviewed with ED attending Dr. Matos who is agreeable with this plan. Impression Abdominal pain with vomiting Discharge Plan Visit Data Chief Complaint: Vomiting Stated Complaint: NAUSEA, VOMITING, ABDOMINAL PAIN ED Provider: Chikis Matos ED Midlevel Provider: Andrés Rogers Discharge Problem: Abdominal pain with vomiting Patient Disposition: Admitted As Inpatient Condition: Fair Forms Stand Alone Forms: [facility] [employer] Prescriptions Prescriptions: No Action (DME) OneTouch Verio test strips Strip See Rx Instructions .Route Qty: 100 0RF Rx Instructions: As directed. Check blood glucose twice a day omeprazole 40 mg capsule,delayed release(DR/EC) 40 mg PO DAILYBB ondansetron 4 mg tablet,disintegrating 4 mg translingual DIRECTED PRN (Reason: NAUSEA/VOMITING) dicyclomine 10 mg Capsule 10 mg PO TID PRN (Reason: abdominal pain) Qty: 20 0RF (DME) OneTouch Verio test strips Strip See Rx Instructions .Route Qty: 100 0RF Rx Instructions: As directed (DME) lancets [OneTouch Delica Plus Lancet] 33 gauge misc See Rx Instructions .Route Qty: 100 0RF Rx Instructions: As directed (DME) pen needle, diabetic [Pen Needle] 32 gauge x 5/32" needle See Rx Instructions .Route Qty: 100 0RF Rx Instructions: As directed levothyroxine 200 mcg tablet 200 mcg PO DAILYBB albuterol sulfate 90 mcg/actuation HFA aerosol inhaler 2 puff INHALATION Q4 PRN (Reason: Shortness Of Breath Or Wheezing) fluticasone propionate 50 mcg/actuation spray,suspension 1 spray INTRANASAL DAILY PRN (Reason: Congestion) metformin 500 mg tablet extended release 24 hr 1,000 mg PO AMPM insulin glargine 100 unit/mL (3 mL) insulin pen 24 unit subcut QAM Mag 64 64 mg Tablet,Delayed Release (Dr/Ec) 64 mg PO BID Qty: 60 0RF metoclopramide HCl [Reglan] 5 mg tablet 5 mg PO TID PRN (Reason: nausea and vomiting) Qty: 20 0RF gabapentin 300 mg capsule 300 mg PO HS Referrals Referrals: Timoteo Muniz MD [Primary Care Provider] -
[2023-10-18] MEDS: ONDANSETRON INJ 2 MG/ML 2 ML VIAL IV STA (21:14)
[2023-10-18] MEDS: MoRPHine SULFATE 4 MG/ML 1 ML CARP\\VIAL IV STA (21:14)
[2023-10-18] MEDS: SODIUM CHLORIDE 0.9% 1,000 ML IV STA (21:14)
[2023-10-18 21:27] LABS: Basophils # (auto) 0.09 K/uL (0.00-0.20); Eosinophils # (auto) 0.06 K/uL (0.00-0.50); Eosinophils % (auto) 0.7 %; Hematocrit (blood only) 43.4 % (37.0-47.0); Hemoglobin 14.5 g/dl (12.0-16.0); Immature Granulocytes # (auto) 0.04 K/uL (0.01-0.20); Immature Granulocytes % (auto) 0.5 %; Lymphocytes # (auto) 1.86 K/uL (1.20-3.40); Lymphocytes % (auto) 21.4 %; Mean Corpuscular Hemoglobin 29.4 pg (25.0-34.0); Mean Corpuscular Hgb Conc 33.4 g/dL (32.0-36.0); Mean Corpuscular Volume 87.9 fL (80.0-100.0); Mean Platelet Volume 8.9 fL (9.4-12.4); Monocytes % (auto) 4.6 %; Neutrophils # (auto) 6.26 K/uL (1.40-6.50); Neutrophils % (auto) 71.8 %; Platelet Count 276 K/uL (130-400); RDW Coefficient of Variation 14.1 % (11.5-14.5); RDW Standard Deviation 45.5 fL (36.4-46.3); Red Blood Count 4.94 M/uL (4.20-5.40); White Blood Count 8.71 K/ul (4.8-10.8)
[2023-10-18 21:43] LABS: Albumin Globulin Ratio 1.5 (0.9-2); Albumin Level 4.6 gm/dl (3.4-5.0); BUN Creatinine Ratio 16.7 (10-20); Bilirubin,Total 0.4 mg/dl (0.2-1.0); Calcium 8.7 mg/dl (8.6-10.3); Creatinine Clr Calc Pharmacy 68.6 ml/min; Est GFR (African American) 73.2 ml/min; Est GFR (Non-African American) 63.2 ml/min; Globulin 3.1 gm/dl (2.5-4.0); Potassium 3.9 mmol/L (3.5-5.1); Total Protein 7.7 gm/dl (6.0-8.3)
[2023-10-18 21:50] LABS: Troponin I High Sensitivity 5.3 pg/ml (0-14)
[2023-10-18] MEDS: OPTIRAY 320 500ml IV ONE (22:08)
--- NOTE | 2023-10-18 22:24 | CT Scan Report ---
Exam(s): CT ABDOMEN + PELVIS With Contrast IV Amt: 90ML OPTIRAY 320 EXAM: CT Abdomen and Pelvis With Intravenous Contrast CLINICAL HISTORY: Reason for exam: right upper abd pain, vomiting, hx obstruction. TECHNIQUE: Axial computed tomography images of the abdomen and pelvis with intravenous contrast. CTDI is 27.48 mGy and DLP is 1403.54 mGy-cm. Automated exposure control was utilized for the study. A dose lowering technique was utilized adhering to the principles of ALARA. CONTRAST: Patient received 90ML OPTIRAY 320 of IV contrast COMPARISON: No relevant prior studies available. FINDINGS: Lung bases: Unremarkable. No mass. No consolidation. ABDOMEN: Liver: Hepatic steatosis. Gallbladder and bile ducts: Cholecystectomy. No ductal dilation. Pancreas: Unremarkable. No mass. No ductal dilation. Spleen: Unremarkable. No splenomegaly. Adrenals: Unremarkable. No mass. Kidneys and ureters: Unremarkable. No solid mass. No hydronephrosis. Stomach and bowel: Diverticulosis, without acute diverticulitis. No small bowel obstruction. No free intraperitoneal air. PELVIS: Appendix: Appendectomy. Bladder: Unremarkable. No mass. Reproductive: Unremarkable as visualized. ABDOMEN and PELVIS: Intraperitoneal space: Unremarkable. No free air. No significant fluid collection. Bones/joints: Degenerative changes of the spine. No acute fracture. No dislocation. Soft tissues: Unremarkable. Vasculature: Atherosclerotic changes of the aorta. No abdominal aortic aneurysm. Lymph nodes: Unremarkable. No enlarged lymph nodes. IMPRESSION: 1. Hepatic steatosis. 2. Cholecystectomy. 3. Appendectomy. 4. Diverticulosis, without acute diverticulitis. No small bowel obstruction. No free intraperitoneal air. Electronically signed by: Karel Burroughs MD 10/18/23 22:23 PM
[2023-10-18 22:26] LABS: Appearance Urine Clear (Clear); Bacteria Urine Automated Negative (Negative); Bilirubin Urine Negative (Negative); Blood Urine Trace (Negative); Cast Urine Automated 0 /lpf (0-5); Color Urine Yellow; Epithelial Cell Urine Auto >30 /lpf (0-5); Glucose Urine UA Negative (Negative); Ketones Urine Negative (Negative); Leukocyte Esterase Urine Negative (Negative); Nitrite Urine Negative (Negative); Protein Urine Negative (Negative); RBC Urine Automated 0-4 /hpf (0-4); Specific Gravity Urine 1.008 (1.000-1.030); Urobilinogen Urine Negative (Negative); pH Urine 5.5 (4.5-7.5)
[2023-10-18] MEDS: METOCLOPRAMIDE HCL INJ 5 MG/ML 2 ML VIAL IV ONE (22:51)
[2023-10-18] MEDS: FAMOTIDINE 20MG IV PUSH 20 MG/5 ML SYR IV STA (23:30)
[2023-10-19] MEDS: HYDROmorphone INJ 0.5 MG/0.5 ML SYR IV STA ×2 (03:14→05:53)
--- NOTE | 2023-10-19 03:43 | History & Physical Report ---
Date of Service October 19, 2023 Assessment & Plan (1) Abdominal pain with vomiting: Plan: 53-year-old female with past medical history significant for type 2 diabetes, hypothyroidism, COPD, chronic rhinitis, irritable bowel syndrome, history of migraine, depression, tobacco use disorder, chronic narcotic use, presents with nausea vomiting, abdominal pain and diarrhea since last Thursday. Symptoms progressively getting worse. She had several episodes of vomiting and several episodes of diarrhea. Denies any blood in stools or black stools. Normal micturition. No fevers. No chest pain or shortness of breath. No cough. No headache. No blurred visions. No runny nose or sore throat. Hemodynamically stable. Patient had similar episode in May 2023 at that time she had EGD which was unremarkable and she had a colonoscopy as outpatient which showed hemorrhoids and 3 polyps biopsies showed tubular adenoma otherwise unremarkable and there was plan for gastric emptying studies. Abdominal pain and vomiting Diarrhea Possible gastroenteritis CT abdomen pelvis okay Will check stool studies N.p.o. IV fluids IV pain meds as needed and IV antibiotics. GI consult in a.m. Diabetes Reduce dose of Lantus as patient is n.p.o. Sliding scale Will monitor Hypothyroidism On Synthyroid GERD Placed on IV Protonix History of COPD Continue home inhalers DVT prophylaxis Lovenox Disposition Observation medical floor Full code History of Present Illness Chief Complaint: Nausea vomiting, abdominal pain and diarrhea Primary Care Provider: Timoteo Muniz MD 53-year-old female with past medical history significant for type 2 diabetes, hypothyroidism, COPD, chronic rhinitis, irritable bowel syndrome, history of migraine, depression, tobacco use disorder, chronic narcotic use, presents with nausea vomiting, abdominal pain and diarrhea since last Thursday. Symptoms progressively getting worse. She had several episodes of vomiting and several episodes of diarrhea. Denies any blood in stools or black stools. Normal micturition. No fevers. No chest pain or shortness of breath. No cough. No headache. No blurred visions. No runny nose or sore throat. Hemodynamically stable. Patient had similar episode in May 2023 at that time she had EGD which was unremarkable and she had a colonoscopy as outpatient which showed hemorrhoids and 3 polyps biopsies showed tubular adenoma otherwise unremarkable and there was plan for gastric emptying studies. Past medical history. As mentioned above. Past surgical history. Colonoscopy. Dental surgery. EGD. Hemorrhoidectomy. Laparoscopic excision of lesions for endometriosis. Laparoscopic fulguration of oviducts. Laparoscopic lysis of adhesions. Laparoscopic oophorectomy and salpingectomy. Appendectomy. Laparoscopic cholecystectomy. Total abdominal hysterectomy with removal of tubes. Social history. Smokes 1/2 pack a day. Alcohol occasional. No drug use. Family history. Maternal aunt had breast cancer. Maternal grandmother had breast cancer. Mother had breast cancer. Paternal grandmother had diabetes. Father had hypertension. Maternal aunt had ovarian cancer. Allergies Allergy/AdvReac Type Severity Reaction Status Date / Time nabumetone Allergy Intermediate swelling Verified 07/01/23 18:24 NSAIDS (Non-Steroidal Allergy Intermediate SWELLING Verified 07/01/23 18:24 Anti-Inflamma acetaminophen AdvReac Intermediate VOMITING, Verified 07/01/23 18:24 RASH--RAISES LIVER ENZYMES Home Medications Medication Instructions Recorded Confirmed Type blood sugar diagnostic (OneTouch #100 ea 12/01/22 10/19/23 Rx Verio test strips) omeprazole 40 mg capsule,delayed 40 mg PO DAILYBB 01/14/23 10/19/23 History release ondansetron 4 mg disintegrating 4 mg translingual DIRECTED PRN 04/24/23 10/19/23 History tablet NAUSEA/VOMITING blood sugar diagnostic (OneTouch #100 ea 04/29/23 10/19/23 Rx Verio test strips) dicyclomine 10 mg capsule 10 mg PO TID PRN abdominal pain 04/29/23 10/19/23 Rx #20 caps lancets 33 gauge (OneTouch Delica #100 ea 04/29/23 10/19/23 Rx Plus Lancet) pen needle, diabetic 32 gauge x #100 ea 04/29/23 10/19/23 Rx 5/32" (Pen Needle) albuterol sulfate 90 mcg/actuation 2 puff inhalation Q4 PRN Shortness 07/01/23 10/19/23 History aerosol inhaler Of Breath Or Wheezing fluticasone propionate 50 1 spray intranasal DAILY PRN 07/01/23 10/19/23 History mcg/actuation nasal Congestion spray,suspension insulin glargine 100 unit/mL (3 24 unit subcut QAM 07/01/23 10/19/23 History mL) subcutaneous pen levothyroxine 200 mcg tablet 200 mcg PO DAILYBB 07/01/23 10/19/23 History metformin 500 mg tablet,extended 1,000 mg PO AMPM 07/01/23 10/19/23 History release 24 hr magnesium chloride 64 mg 64 mg PO BID #60 tabs 07/04/23 10/19/23 Rx (magnesium chloride) tablet,delayed release (Mag 64) metoclopramide HCl 5 mg tablet 5 mg PO TID PRN nausea and 07/04/23 10/19/23 Rx (Reglan) vomiting #20 tabs gabapentin 300 mg capsule 300 mg PO HS 10/19/23 10/19/23 History Past Med/Surg History Medical History Nausea and vomiting Migraine Depression Endometriosis IBS (irritable bowel syndrome) Hypothyroidism Social History Smoking Status: Current every day smoker Tobacco Type: Cigarettes Cigarettes Per Day: 1/2 pack day; Second Hand Exposure: Yes; Do You Dip or Chew Tobacco: No; Hx Alcohol Use: No Hx Substance Use: No Preferred Language: Hungarian Communication Ability: Effective Oil Inspector Required: No Beliefs That Will Affect Care: None Current Living Situation: Family Current Living Situation Comment: father staying w/ pt and grandson Feels Safe at Home: Yes Safety Concerns: Feels Safe At This Time Assistive Devices: None Review of Systems Review of Systems: All systems reviewed & are unremarkable except as noted in HPI & below Physical Exam Physical Exam: General- Not in distress Head- atraumatic Eyes- PERRL. ENT- oropharynx clear Neck- supple, no JVD. Lungs- clear to auscultation no wheezing or crackles. Heart- regular rhythm; no murmur, no gallop Abdomen- normal bowel sounds, soft, tenderness in epigastric region no distension Extremities- no pretibial edema, no erythema seen. Neuro- alert, oriented PERRL, no facial palsy; no dysarthria; moves extremities. Results & Data Results & Data Vital Signs (Past 12 Hours) Vital Signs Temp Pulse Pulse Resp BP BP Pulse Ox 10/19/23 03:18 78 18 138/78 95 10/18/23 22:52 89 19 169/91 H 97 10/18/23 21:45 67 18 170/103 H 98 10/18/23 21:14 81 10/18/23 21:12 98 10/18/23 20:33 36.4 C L 99 H 18 165/108 H 98 O2 Del Method 10/19/23 03:18 Room Air 10/18/23 22:52 Room Air 10/18/23 21:45 Room Air 10/18/23 21:14 10/18/23 21:12 Room Air 10/18/23 20:33 Room Air Diagnostic Findings Laboratory Results WBC 8.71 K/ul (4.8-10.8) 10/18/23 Unknown RBC 4.94 M/uL (4.20-5.40) 10/18/23 Unknown Hgb 14.5 g/dl (12.0-16.0) 10/18/23 Unknown Hct 43.4 % (37.0-47.0) 10/18/23 Unknown MCV 87.9 fL (80.0-100.0) 10/18/23 Unknown MCH 29.4 pg (25.0-34.0) 10/18/23 Unknown MCHC 33.4 g/dL (32.0-36.0) 10/18/23 Unknown RDW Std Deviation 45.5 fL (36.4-46.3) 10/18/23 Unknown RDW Coeff of Adolfo 14.1 % (11.5-14.5) 10/18/23 Unknown Plt Count 276 K/uL (130-400) 10/18/23 Unknown MPV 8.9 fL (9.4-12.4) L 10/18/23 Unknown Immature Gran % (Auto) 0.5 % 10/18/23 Unknown Neut % (Auto) 71.8 % 10/18/23 Unknown Lymph % (Auto) 21.4 % 10/18/23 Unknown [place] % (Auto) 4.6 % 10/18/23 Unknown Eos % (Auto) 0.7 % 10/18/23 Unknown Baso % (Auto) 1.0 % 10/18/23 Unknown Neut # (Auto) 6.26 K/uL (1.40-6.50) 10/18/23 Unknown Lymph # (Auto) 1.86 K/uL (1.20-3.40) 10/18/23 Unknown [place] # (Auto) 0.40 K/uL (0.11-0.59) 10/18/23 Unknown Eos # (Auto) 0.06 K/uL (0.00-0.50) 10/18/23 Unknown Baso # (Auto) 0.09 K/uL (0.00-0.20) 10/18/23 Unknown Immature Gran # (Auto) 0.04 K/uL (0.01-0.20) 10/18/23 Unknown Sodium 139 mmol/L (136-145) 10/18/23 Unknown Potassium 3.9 mmol/L (3.5-5.1) 10/18/23 Unknown Chloride 104 mmol/L (98-107) 10/18/23 Unknown Carbon Dioxide 25 mmol/L (21-32) 10/18/23 Unknown Anion Gap 10 (3-11) 10/18/23 Unknown BUN 17 mg/dl (6-23) 10/18/23 Unknown Creatinine 1.02 mg/dl (0.6-1.2) 10/18/23 Unknown Est Cr Clr Drug Dosing 68.6 ml/min 10/18/23 Unknown Est GFR ( Amer) 73.2 ml/min 10/18/23 Unknown Est GFR (Non-Af Amer) 63.2 ml/min 10/18/23 Unknown BUN/Creatinine Ratio 16.7 (10-20) 10/18/23 Unknown Glucose 182 mg/dl (70-99(Fasting)) H 10/18/23 Unknown Calcium 8.7 mg/dl (8.6-10.3) 10/18/23 Unknown Total Bilirubin 0.4 mg/dl (0.2-1.0) 10/18/23 Unknown AST 16 U/L (13-39) 10/18/23 Unknown ALT 19 U/L (7-52) 10/18/23 Unknown Alkaline Phosphatase 87 U/L (34-104) 10/18/23 Unknown Troponin I High Sens 5.3 pg/ml (0-14) 10/18/23 Unknown Total Protein 7.7 gm/dl (6.0-8.3) 10/18/23 Unknown Albumin 4.6 gm/dl (3.4-5.0) 10/18/23 Unknown Globulin 3.1 gm/dl (2.5-4.0) 10/18/23 Unknown Albumin/Globulin Ratio 1.5 (0.9-2) 10/18/23 Unknown Lipase 29 U/L (11-82) 10/18/23 Unknown Urine Color Yellow 10/18/23 Unknown Urine Appearance Clear (Clear) 10/18/23 Unknown Urine pH 5.5 (4.5-7.5) 10/18/23 Unknown Ur Specific [place] 1.008 (1.000-1.030) 10/18/23 Unknown Urine Protein Negative (Negative) 10/18/23 Unknown Urine Glucose (UA) Negative (Negative) 10/18/23 Unknown Urine Ketones Negative (Negative) 10/18/23 Unknown Urine Blood Trace (Negative) H 10/18/23 Unknown Urine Nitrite Negative (Negative) 10/18/23 Unknown Urine Bilirubin Negative (Negative) 10/18/23 Unknown Urine Urobilinogen Negative (Negative) 10/18/23 Unknown Ur Leukocyte Esterase Negative (Negative) 10/18/23 Unknown Urine WBC (Auto) 1-5 /hpf (0-5) 10/18/23 Unknown Urine RBC (Auto) 0-4 /hpf (0-4) 10/18/23 Unknown U Hyaline Cast (Auto) 0 /lpf (0-5) 10/18/23 Unknown U Epithel Cells (Auto) >30 /lpf (0-5) H 10/18/23 Unknown Urine Bacteria (Auto) Negative (Negative) 10/18/23 Unknown Impressions Abdomen/Pelvis CT 10/18/23 21:00 Exam(s): CT ABDOMEN + PELVIS With Contrast IV Amt: 90ML OPTIRAY 320 EXAM: CT Abdomen and Pelvis With Intravenous Contrast CLINICAL HISTORY: Reason for exam: right upper abd pain, vomiting, hx obstruction. TECHNIQUE: Axial computed tomography images of the abdomen and pelvis with intravenous contrast. CTDI is 27.48 mGy and DLP is 1403.54 mGy-cm. Automated exposure control was utilized for the study. A dose lowering technique was utilized adhering to the principles of ALARA. CONTRAST: Patient received 90ML OPTIRAY 320 of IV contrast COMPARISON: No relevant prior studies available. FINDINGS: Lung bases: Unremarkable. No mass. No consolidation. ABDOMEN: Liver: Hepatic steatosis. Gallbladder and bile ducts: Cholecystectomy. No ductal dilation. Pancreas: Unremarkable. No mass. No ductal dilation. Spleen: Unremarkable. No splenomegaly. Adrenals: Unremarkable. No mass. Kidneys and ureters: Unremarkable. No solid mass. No hydronephrosis. Stomach and bowel: Diverticulosis, without acute diverticulitis. No small bowel obstruction. No free intraperitoneal air. PELVIS: Appendix: Appendectomy. Bladder: Unremarkable. No mass. Reproductive: Unremarkable as visualized. ABDOMEN and PELVIS: Intraperitoneal space: Unremarkable. No free air. No significant fluid collection. Bones/joints: Degenerative changes of the spine. No acute fracture. No dislocation. Soft tissues: Unremarkable. Vasculature: Atherosclerotic changes of the aorta. No abdominal aortic aneurysm. Lymph nodes: Unremarkable. No enlarged lymph nodes. IMPRESSION: 1. Hepatic steatosis. 2. Cholecystectomy. 3. Appendectomy. 4. Diverticulosis, without acute diverticulitis. No small bowel obstruction. No free intraperitoneal air. Electronically signed by: Karel Burroughs MD 10/18/23 22:23 PM ECG Additional Comments: ECG. Normal sinus rhythm at rate of 86. No significant change was found. Code Status & VTE Plan VTE Prophylaxis Plan VTE Prophylaxis will be ordered: Yes
[2023-10-19] MEDS ORDERED: CARBOHYDRATES FOR HYPOGLYCEMIA PO PRN (05:03)
[2023-10-19] MEDS ORDERED: FLUTICASONE PROPIONATE NA SPR 16 GM BTL PRN (05:03)
[2023-10-19] MEDS ORDERED: GLUCAGON FOR INJ 1 MG VIAL SQ PRN (05:03)
[2023-10-19] MEDS ORDERED: DEXTROSE 50% 50 ML SYRINGE IV PRN (05:03)
[2023-10-19] MEDS ORDERED: METOCLOPRAMIDE HCL INJ 5 MG/ML 2 ML VIAL IV PRN (05:03)
[2023-10-19] MEDS ORDERED: GLUCOSE 40% GEL 15 GM TUBE PO PRN (05:03)
[2023-10-19] MEDS ORDERED: GLUCOSE 10 TAB/TUBE PO PRN (05:03)
[2023-10-19] MEDS ORDERED: ACETAMINOPHEN 325 MG TAB PO PRN (05:03)
[2023-10-19] MEDS ORDERED: ALBUTEROL HFA 8 GM INHALER INH PRN (05:03)
[2023-10-19] MEDS: INSULIN ASPART PER UNIT CHARGE SC SCH ×2 (05:26→12:26)
[2023-10-19] MEDS: SODIUM CHLORIDE 0.9% 1,000 ML IV SCH (05:34)
[2023-10-19] MEDS: LEVOTHYROXINE SODIUM 200 MCG TABLET PO SCH (05:52)
[2023-10-19] MEDS: HYDROmorphone INJ 0.5 MG/0.5 ML SYR IV PRN ×2 (07:59→16:14)
[2023-10-19] MEDS: PANTOprazole 40 MG in SYRINGE 0 ML IV SCH (07:59)
[2023-10-19] MEDS: MAGNESIUM CHLORIDE W/CALCIUM 64MG DELAYED REL TAB PO SCH (07:59)
[2023-10-19] MEDS: ONDANSETRON INJ 2 MG/ML 2 ML VIAL IV PRN (07:59)
[2023-10-19] MEDS: ENOXAPARIN INJ 40 MG/0.4 ML SYR SQ SCH (08:00)
[2023-10-19 08:12] LABS: Basophils # (auto) 0.08 K/uL (0.00-0.20); Basophils % (auto) 1.1 %; Eosinophils % (auto) 1.4 %; Hematocrit (blood only) 39.3 % (37.0-47.0); Hemoglobin 13.1 g/dl (12.0-16.0); Immature Granulocytes # (auto) 0.02 K/uL (0.01-0.20); Immature Granulocytes % (auto) 0.3 %; Lymphocytes # (auto) 1.97 K/uL (1.20-3.40); Lymphocytes % (auto) 27.3 %; Mean Corpuscular Hgb Conc 33.3 g/dL (32.0-36.0); Mean Corpuscular Volume 86.9 fL (80.0-100.0); Mean Platelet Volume 9.3 fL (9.4-12.4); Monocytes # (auto) 0.44 K/uL (0.11-0.59); Monocytes % (auto) 6.1 %; Neutrophils % (auto) 63.8 %; Platelet Count 241 K/uL (130-400); RDW Coefficient of Variation 14.3 % (11.5-14.5); RDW Standard Deviation 46.1 fL (36.4-46.3); Red Blood Count 4.52 M/uL (4.20-5.40); White Blood Count 7.21 K/ul (4.8-10.8)
--- NOTE | 2023-10-19 08:23 | Electrocardiogram Report ---
Test Reason : Blood Pressure : / mmHG Vent. Rate : 086 BPM Atrial Rate : 086 BPM P-R Int : 138 ms QRS Dur : 074 ms QT Int : 400 ms P-R-T Axes : 062 047 039 degrees QTc Int : 478 ms Normal sinus rhythm Normal ECG When compared with ECG of 01-JUL-2023 15:37, No significant change was found Confirmed by Lars Barajas ([id number]) on 10/19/2023 8:23:11 AM Referred By: REFERRED SELF Confirmed By:Lars Barajas
[2023-10-19 08:29] LABS: BUN Creatinine Ratio 15.2 (10-20); Creatinine Clr Calc Pharmacy 76.2 ml/min; Est GFR (Non-African American) 71.6 ml/min; Magnesium 1.3 mg/dl (1.7-2.4); Potassium 3.9 mmol/L (3.5-5.1)
[2023-10-19] MEDS: LANTUS PER UNIT CHARGE SQ SCH (08:34)
[2023-10-19 08:50] LABS: Estimated Average Glucose 171 mg/dl; Hemoglobin A1C 7.6 % (4.5-5.6)
[2023-10-19] MEDS ORDERED: Nursing to Pharmacy Communication SCH (10:30)
[2023-10-19] MEDS: MAGNESIUM SULFATE / D5W 1 GM/100 ML BAG IV SCH (12:19)
[2023-10-19] MEDS: DICYCLOMINE HCL 10 MG CAP PO PRN (13:02)
--- NOTE | 2023-10-19 13:25 | Gastrointestinal Consultation ---
Date of Consultation October 19, 2023 Assessment & Plan (1) Abdominal pain with vomiting: (2) Vomiting and diarrhea: Plan 53 y/o female with h/o T2DM, previously uncontrolled now getting under better control recently, with chronic abd pain n/v, presented with acute symptoms of n/v, but also diarrhea. Diarrhea seems to be resolving as she hasn't had any further today, and vomiting improved but she still has some nausea. Her w/u including labs, CT with no acute findings. She had recent EGD/colonoscopy which did not reveal an etiology for her symptoms. Abd is soft on exam. This acute episode may have been attributed to be a viral gastroenteritis, however her chronic issues should be w/u with GES as OP to evaluate for gastroparesis. - Would tx current symptoms with antiemetics, analgesia PRN - Supportive care - Encouraged tight blood glucose control - Avoid NSAIDs - If diarrhea returns would check stool studies to evaluate for infectious etiology - Otherwise would proceed with GES as OP as planned and pt should get schedule for that - Diet as tolerated - Daily PPI - GI will sign off, please call with questions Thank you for allowing us to participate in the care of this patient. Please call with any acute changes, questions or concerns. Please see addendum below with additional recommendation from my supervising physician. Supervising Physician Co-Signing Physician Notes Agree with pe and plan as documented. Supportive care for gastroenteritis. History of Present Illness Reason for Consultation: n/v, abdominal pain Requesting Physician: Dr. Guidry Attending Physician: Jonatan Clark MD History of Present Illness This is a 53 y/o female with PMhx T2DM, tobacco use, COPD, IBS, migraine, depression, hypothyroidism, and others. Admitted w/ acute on chronic n/v, abd pain, also had diarrhea. Labs including CBC, BMP, LFTs, lipase, as well as CTAP nonacute except for mild hyperglycemia. Pt states diarrhea began yesterday; had several liquid loose BMs; no BMs today. A1C was 10; is now improved to 7.6%. Stool studies ordered but not collected. Currently states she is feeling slightly better. No vomiting today, having intermittent nausea. Denies fever, chills, CP, SOB, hematemesis, melena, hematochezia. Pt denies ETOH, NSAID, tobacco use. She is s/p cholecystectomy. Pt underwent EGD/colonoscopy in 2022 for similar, unremarkable findings except for colon polyps, findings below. There was plan for GES as OP but pt had to cancel d/t an ill family member. EGD 2022: Findings: The examined esophagus was normal. The Z-line was regular and was found 36 cm from the incisors. The entire examined stomach was normal. Biopsies were taken with a cold forceps for histology. The pathology specimen was placed into Bottle B. Estimated blood loss was minimal. The examined duodenum was normal. Biopsies were taken with a cold forceps for histology. The pathology specimen was placed into Bottle A. Estimated blood loss was minimal. Impression: - Normal esophagus. - Z-line regular, 36 cm from the incisors. - Normal stomach. Biopsied. - Normal examined duodenum. Biopsied. FINAL DIAGNOSIS A. Duodenum (biopsy): - Multiple benign strips of small bowel mucosa with no pathologic diagnoses are seen. - Villous architecture is maintained. - Giardia lamblia organisms are not seen. - A significant inflammatory infiltrate is also not seen. - The clinical history of nausea, vomiting and abdominal pain is noted. B. Stomach (biopsy): - 2 benign fragments of gastric mucosa with no pathologic diagnoses are seen. - See comment. Comment: The biopsy tissue submitted as part B shows no significant inflammation and therefore a Helicobacter pylori immunohistochemical stain is not performed. No H. pylori organisms are noted on the routine H&E stain, however this is less sensitive than the immunohistochemical stain, and may not detect small numbers of organisms. If there is a clinical indication that warrants a Helicobacter pylori immunohistochemical stain (ex. ulcer not sampled, follow-up for recent H. pylori treatment), then testing may be ordered through the laboratory and an addendum will be issued to this report upon completion. Colonoscopy 2022: - Hemorrhoids found on perianal exam. - Two 3 mm polyps in the descending colon, removed with a cold snare. Resected and retrieved. - Internal hemorrhoids. A. Colon, Descending, polypectomy: Tubular adenoma Allergies Allergy/AdvReac Type Severity Reaction Status Date / Time nabumetone Allergy Intermediate swelling Verified 07/01/23 18:24 NSAIDS (Non-Steroidal Allergy Intermediate SWELLING Verified 07/01/23 18:24 Anti-Inflamma acetaminophen AdvReac Intermediate VOMITING, Verified 07/01/23 18:24 RASH--RAISES LIVER ENZYMES Home Medications Medication Instructions Recorded Confirmed Type blood sugar diagnostic (OneTouch #100 ea 12/01/22 10/19/23 Rx Verio test strips) omeprazole 40 mg capsule,delayed 40 mg PO DAILYBB 01/14/23 10/19/23 History release ondansetron 4 mg disintegrating 4 mg translingual DIRECTED PRN 04/24/23 10/19/23 History tablet NAUSEA/VOMITING blood sugar diagnostic (OneTouch #100 ea 04/29/23 10/19/23 Rx Verio test strips) dicyclomine 10 mg capsule 10 mg PO TID PRN abdominal pain 04/29/23 10/19/23 Rx #20 caps lancets 33 gauge (OneTouch Delica #100 ea 04/29/23 10/19/23 Rx Plus Lancet) pen needle, diabetic 32 gauge x #100 ea 04/29/23 10/19/23 Rx 5/32" (Pen Needle) albuterol sulfate 90 mcg/actuation 2 puff inhalation Q4 PRN Shortness 07/01/23 10/19/23 History aerosol inhaler Of Breath Or Wheezing fluticasone propionate 50 1 spray intranasal DAILY PRN 07/01/23 10/19/23 History mcg/actuation nasal Congestion spray,suspension insulin glargine 100 unit/mL (3 24 unit subcut QAM 07/01/23 10/19/23 History mL) subcutaneous pen levothyroxine 200 mcg tablet 200 mcg PO DAILYBB 07/01/23 10/19/23 History metformin 500 mg tablet,extended 1,000 mg PO AMPM 07/01/23 10/19/23 History release 24 hr magnesium chloride 64 mg 64 mg PO BID #60 tabs 07/04/23 10/19/23 Rx (magnesium chloride) tablet,delayed release (Mag 64) metoclopramide HCl 5 mg tablet 5 mg PO TID PRN nausea and 07/04/23 10/19/23 Rx (Reglan) vomiting #20 tabs gabapentin 300 mg capsule 300 mg PO HS 10/19/23 10/19/23 History Patient History Medical History Nausea and vomiting Migraine Depression Endometriosis IBS (irritable bowel syndrome) Hypothyroidism Social History Smoking Status: Current every day smoker Tobacco Type: Cigarettes Cigarettes Per Day: 1/2 pack day; Second Hand Exposure: Yes; Do You Dip or Chew Tobacco: No; Hx Alcohol Use: No Hx Substance Use: No Preferred Language: Kyrgyz Communication Ability: Effective Industrial Relations Representative Required: No Beliefs That Will Affect Care: None Current Living Situation: Family Current Living Situation Comment: father staying w/ pt and grandson Feels Safe at Home: Yes Safety Concerns: Feels Safe At This Time Assistive Devices: None Review of Systems Review of Systems: All systems reviewed & are unremarkable except as noted in HPI & below Physical Exam Constitutional: well developed, well nourished and comfortable; no acute distress Eyes: Sclera anicteric, no conjunctival injection ENMT: moist mucous membranes, no pallor Neck: trachea midline supple Respiratory: normal respiratory effort, lungs clear to auscultation Cardiovascular: RRR, no murmur, no edema Gastrointestinal (Abdomen): normal bowel sounds, soft, nontender, no hepatosplenomegaly Inspection/Auscultation: abdomen not distended Skin: no rashes, warm and dry Neurologic: alert and oriented x 3, no obvious focal neuro deficit Psychiatric: normal mood and affect Results & Data Vital Signs (Past 12 Hours) Vital Signs Temp Pulse Pulse Pulse Resp BP Pulse Ox 10/19/23 07:08 36.3 C L 70 16 139/83 96 10/19/23 04:45 37.0 C 71 16 137/72 96 10/19/23 04:00 65 10/19/23 03:18 78 18 138/78 95 O2 Del Method 10/19/23 07:08 Room Air 10/19/23 04:45 Room Air 10/19/23 04:00 10/19/23 03:18 Room Air
--- NOTE | 2023-10-19 14:18 | Hospitalist Progress Note ---
Date of Service October 19, 2023 Assessment & Plan (1) Abdominal pain with vomiting: Plan: 53-year-old female with past medical history significant for type 2 diabetes, hypothyroidism, COPD, chronic rhinitis, irritable bowel syndrome, history of migraine, depression, tobacco use disorder, chronic narcotic use, presents with nausea vomiting, abdominal pain and diarrhea since last Thursday. Abdominal pain and vomiting Diarrhea Possible viral gastroenteritis Patient presents with nausea, vomiting, abdominal pain and diarrhea for [address] abdomen and pelvis on admission; no acute findings. Labs reviewed; no leukocytosis. Magnesium1.3 Supportive care with pain medication, Bentyl Check for C. difficile and GI PCR panel Type II diabetes Continue Lantus and sliding scale Hypothyroidism On Synthyroid GERD Placed on IV Protonix History of COPD Continue home inhalers DVT prophylaxis Lovenox Disposition Observation medical floor Full code Please note the above document was generated using voice recognition software. It may contain grammatical, syntax or spelling errors. Any formal questions or concerns about the content, text or information contained within the body of this dictation should be directly addressed to the provider for clarification Admission and Anticipated Discharge Date Admission Date: October 19, 2023 Subjective Patient seen and examined at bedside. She reports abdominal pain after the diet. Denies fever, chills, chest pain or shortness of breath. Review of Systems Review of Systems: All systems reviewed & are unremarkable except as noted in Subjective Physical Exam Physical Exam: Constitutional: WD/WN, vitals as above, NAD, sitting up in bed, pleasant, conversing easily Respiratory: normal respiratory effort, lungs clear to auscultation, no wheeze, rales, rhonchi. Normal insp/exp effort, no accessory muscle use Cardiovascular: RRR, no murmur, no edema Vessels: no JVD or carotid bruit Chest: normal inspection of chest Abdomen: normal bowel sounds, soft, nontender, no hepatosplenomegaly Musculoskeletal: no cyanosis or clubbing, extremities motor strength 5/5 Skin: no rashes, warm and dry normal turgor Neurologic: PERRL, EOMI, accommodation nl, no face palsy, no dysarthria CN's II- XI intact bilaterally and moves all extremities Psychiatric: A+Ox3, euthymic affect Results & Data Results & Data Vital Signs (Past 12 Hours) Vital Signs Temp Pulse Pulse Pulse Resp BP Pulse Ox 10/19/23 07:08 36.3 C L 70 16 139/83 96 10/19/23 04:45 37.0 C 71 16 137/72 96 10/19/23 04:00 65 10/19/23 03:18 78 18 138/78 95 O2 Del Method 10/19/23 07:08 Room Air 10/19/23 04:45 Room Air 10/19/23 04:00 10/19/23 03:18 Room Air
[2023-10-19] MEDS: PANTOprazole 40 MG TAB PO SCH (20:23)
[2023-10-19] MEDS: GABAPENTIN 300 MG CAP PO SCH (20:23)
[2023-10-20 06:56] LABS: Basophils # (auto) 0.08 K/uL (0.00-0.20); Basophils % (auto) 1.2 %; Eosinophils % (auto) 1.5 %; Hematocrit (blood only) 40.7 % (37.0-47.0); Hemoglobin 13.4 g/dl (12.0-16.0); Immature Granulocytes # (auto) 0.02 K/uL (0.01-0.20); Immature Granulocytes % (auto) 0.3 %; Lymphocytes # (auto) 1.85 K/uL (1.20-3.40); Lymphocytes % (auto) 27.7 %; Mean Corpuscular Hemoglobin 29.1 pg (25.0-34.0); Mean Corpuscular Hgb Conc 32.9 g/dL (32.0-36.0); Mean Corpuscular Volume 88.3 fL (80.0-100.0); Mean Platelet Volume 8.9 fL (9.4-12.4); Monocytes # (auto) 0.44 K/uL (0.11-0.59); Monocytes % (auto) 6.6 %; Neutrophils % (auto) 62.7 %; Platelet Count 240 K/uL (130-400); RDW Standard Deviation 44.8 fL (36.4-46.3); Red Blood Count 4.61 M/uL (4.20-5.40); White Blood Count 6.69 K/ul (4.8-10.8)
[2023-10-20 07:18] LABS: BUN Creatinine Ratio 20.6 (10-20); Calcium 8.2 mg/dl (8.6-10.3); Creatinine Clr Calc Pharmacy 68.7 ml/min; Est GFR (African American) 73.2 ml/min; Est GFR (Non-African American) 63.2 ml/min; Potassium 4.2 mmol/L (3.5-5.1)
--- NOTE | 2023-10-20 17:08 | Hospitalist Progress Note ---
Date of Service October 20, 2023 Assessment & Plan (1) Abdominal pain with vomiting: Plan: 53-year-old female with past medical history significant for type 2 diabetes, hypothyroidism, COPD, chronic rhinitis, irritable bowel syndrome, history of migraine, depression, tobacco use disorder, chronic narcotic use, presents with nausea vomiting, abdominal pain and diarrhea since last Thursday. Abdominal pain and vomiting Diarrhea Possible viral gastroenteritis Patient presents with nausea, vomiting, abdominal pain and diarrhea for [address] abdomen and pelvis on admission; no acute findings. Labs reviewed; no leukocytosis. Magnesium1.3 Supportive care with pain medication, Bentyl Awaiting C. difficile and GI PCR panel Outpatient follow-up with gastric emptying test as outpatient. Type II diabetes Continue Lantus and sliding scale Hypothyroidism On Synthyroid GERD Placed on IV Protonix History of COPD Continue home inhalers DVT prophylaxis Lovenox Disposition Observation medical floor. She continues to have abdomen pain; continue to monitor. Possible DC in a.m. Full code Please note the above document was generated using voice recognition software. It may contain grammatical, syntax or spelling errors. Any formal questions or concerns about the content, text or information contained within the body of this dictation should be directly addressed to the provider for clarification Admission and Anticipated Discharge Date Admission Date: October 19, 2023 Subjective Patient continues to report intermittent abdominal pain. Requesting Dilaudid No other complaints. Vital stable. Review of Systems Review of Systems: All systems reviewed & are unremarkable except as noted in Subjective Physical Exam Physical Exam: Constitutional: WD/WN, vitals as above, NAD, sitting up in bed, pleasant, conversing easily Respiratory: normal respiratory effort, lungs clear to auscultation, no wheeze, rales, rhonchi. Normal insp/exp effort, no accessory muscle use Cardiovascular: RRR, no murmur, no edema Vessels: no JVD or carotid bruit Chest: normal inspection of chest Abdomen: normal bowel sounds, soft, nontender, no hepatosplenomegaly Musculoskeletal: no cyanosis or clubbing, extremities motor strength 5/5 Skin: no rashes, warm and dry normal turgor Neurologic: PERRL, EOMI, accommodation nl, no face palsy, no dysarthria CN's II- XI intact bilaterally and moves all extremities Psychiatric: A+Ox3, euthymic affect Results & Data Results & Data Vital Signs (Past 12 Hours) Vital Signs Temp Pulse Resp BP Pulse Ox O2 Del Method 10/20/23 15:19 36.5 C 77 16 123/81 96 Room Air 10/20/23 07:02 36.3 C L 73 16 139/82 95 Room Air
[2023-10-20] MEDS: HYDROmorphone INJ 0.5 MG/0.5 ML SYR IV STA (20:09)
[2023-10-21 07:33] LABS: Basophils # (auto) 0.08 K/uL (0.00-0.20); Basophils % (auto) 0.9 %; Eosinophils # (auto) 0.09 K/uL (0.00-0.50); Hematocrit (blood only) 41.8 % (37.0-47.0); Hemoglobin 14.1 g/dl (12.0-16.0); Immature Granulocytes # (auto) 0.05 K/uL (0.01-0.20); Immature Granulocytes % (auto) 0.6 %; Lymphocytes % (auto) 27.1 %; Mean Corpuscular Hemoglobin 29.1 pg (25.0-34.0); Mean Corpuscular Hgb Conc 33.7 g/dL (32.0-36.0); Mean Corpuscular Volume 86.2 fL (80.0-100.0); Mean Platelet Volume 9.1 fL (9.4-12.4); Monocytes # (auto) 0.53 K/uL (0.11-0.59); Neutrophils # (auto) 5.71 K/uL (1.40-6.50); Neutrophils % (auto) 64.4 %; Platelet Count 263 K/uL (130-400); RDW Coefficient of Variation 13.7 % (11.5-14.5); RDW Standard Deviation 43.1 fL (36.4-46.3); Red Blood Count 4.85 M/uL (4.20-5.40); White Blood Count 8.86 K/ul (4.8-10.8)
[2023-10-21 07:46] LABS: Albumin Level 4.2 gm/dl (3.4-5.0); Bilirubin,Total 0.4 mg/dl (0.2-1.0); Calcium 8.6 mg/dl (8.6-10.3)
[2023-10-21 07:52] LABS: Albumin Globulin Ratio 1.4 (0.9-2); Creatinine Clr Calc Pharmacy 70.1 ml/min; Est GFR (Non-African American) 64.7 ml/min; Globulin 2.9 gm/dl (2.5-4.0); Total Protein 7.1 gm/dl (6.0-8.3)
[2023-10-21] MEDS: POLYETHYLENE (MIRALAX) 17 GM PACK PO SCH (12:28)
[2023-10-21] MEDS: SENNA 8.6 MG TAB PO SCH (12:28)
--- NOTE | 2023-10-21 15:53 | Discharge Summary ---
Date of Service October 21, 2023 Admission HPI Per Admitting Provider 53-year-old female with past medical history significant for type 2 diabetes, hypothyroidism, COPD, chronic rhinitis, irritable bowel syndrome, history of migraine, depression, tobacco use disorder, chronic narcotic use, presents with nausea vomiting, abdominal pain and diarrhea since last Thursday. Symptoms progressively getting worse. She had several episodes of vomiting and several episodes of diarrhea. Denies any blood in stools or black stools. Normal micturition. No fevers. No chest pain or shortness of breath. No cough. No headache. No blurred visions. No runny nose or sore throat. Hemodynamically stable. Patient had similar episode in May 2023 at that time she had EGD which was unremarkable and she had a colonoscopy as outpatient which showed hemorrhoids and 3 polyps biopsies showed tubular adenoma otherwise unremarkable and there was plan for gastric emptying studies. Past medical history. As mentioned above. Past surgical history. Colonoscopy. Dental surgery. EGD. Hemorrhoidectomy. Laparoscopic excision of lesions for endometriosis. Laparoscopic fulguration of oviducts. Laparoscopic lysis of adhesions. Laparoscopic oophorectomy and salpingectomy. Appendectomy. Laparoscopic cholecystectomy. Total abdominal hysterectomy with removal of tubes. Social history. Smokes 1/2 pack a day. Alcohol occasional. No drug use. Family history. Maternal aunt had breast cancer. Maternal grandmother had breast cancer. Mother had breast cancer. Paternal grandmother had diabetes. Father had hypertension. Maternal aunt had ovarian cancer. Admission Exam Per Admitting Provider General- Not in distress Head- atraumatic Eyes- PERRL. ENT- oropharynx clear Neck- supple, no JVD. Lungs- clear to auscultation no wheezing or crackles. Heart- regular rhythm; no murmur, no gallop Abdomen- normal bowel sounds, soft, tenderness in epigastric region no distension Extremities- no pretibial edema, no erythema seen. Neuro- alert, oriented PERRL, no facial palsy; no dysarthria; moves extremities. Principal Diagnosis Abdominal pain, vomiting, diarrhea Possible viral gastroenteritis Discharge Exam Constitutional: WD/WN, vitals as above, NAD, sitting up in bed, pleasant, conversing easily Respiratory: normal respiratory effort, lungs clear to auscultation, no wheeze, rales, rhonchi. Normal insp/exp effort, no accessory muscle use Cardiovascular: RRR, no murmur, no edema Vessels: no JVD or carotid bruit Chest: normal inspection of chest Abdomen: normal bowel sounds, soft, nontender when distracted, no hepatosplenomegaly Musculoskeletal: no cyanosis or clubbing, extremities motor strength 5/5 Skin: no rashes, warm and dry normal turgor Neurologic: PERRL, EOMI, accommodation nl, no face palsy, no dysarthria CN's II- XI intact bilaterally and moves all extremities Psychiatric: A+Ox3, euthymic affect Discharge Data Allergies Allergy/AdvReac Type Severity Reaction Status Date / Time nabumetone Allergy Intermediate swelling Verified 07/01/23 18:24 NSAIDS (Non-Steroidal Allergy Intermediate SWELLING Verified 07/01/23 18:24 Anti-Inflamma acetaminophen AdvReac Intermediate VOMITING, Verified 07/01/23 18:24 RASH--RAISES LIVER ENZYMES Consultations 10/19/23 01:44 ED Decision to Admit Stat 10/19/23 08:00 Consult Gastroenterology Routine Ordered Studies 10/18/23 21:00 CT abd pelvis IV con only Stat Hospital Course (1) Abdominal pain with vomiting: Per prior attending with addendum: 53-year-old female with past medical history significant for type 2 diabetes, hypothyroidism, COPD, chronic rhinitis, irritable bowel syndrome, history of migraine, depression, tobacco use disorder, chronic narcotic use, presents with nausea vomiting, abdominal pain and diarrhea since last Thursday. Abdominal pain and vomiting Diarrhea Possible viral gastroenteritis Patient presents with nausea, vomiting, abdominal pain and diarrhea for [address] abdomen and pelvis on admission; no acute findings. Labs reviewed; no leukocytosis. Magnesium1.3 Supportive care with pain medication, Bentyl Awaiting C. difficile and GI PCR panel Outpatient follow-up with gastric emptying test as outpatient. Type II diabetes Continue Lantus and sliding scale Hypothyroidism On Synthyroid GERD Placed on IV Protonix History of COPD Continue home inhalers DVT prophylaxis Lovenox Disposition Observation medical floor. She continues to have abdomen pain; continue to monitor. Possible DC in a.m. Full code Plan Addendum 10/21/2023: Patient was seen and examined at bedside as a follow-up for possible viral gastroenteritis. Patient did not have further diarrhea while in the hospital. Patient reports overall improvement in her abdominal pain, has been tolerating diet per RN. No new acute events overnight per RN, patient feels better to go home later in the day today. She is being discharged with following instruction at the point of discharge: Follow-up with your primary care physician within a week time and likely you will need labs CBC/CMP/magnesium/phosphorus. You were evaluated for possible viral gastroenteritis, your diarrhea has resolved now. Continue to ambulate/maintain adequate hydration/can use [id number] laxatives to prevent constipation. Follow-up with your GI as an outpatient for your planned gastric emptying test. Take your medications as prescribed. Please make sure that you are able to get your medications today by calling your pharmacy before you leave the hospital so that your treatment continuity is not broken. Home Health Attestation I certify that this patient is under my care and that I, or a physicians junior assistant manager working with me, had a face to-face encounter that meets the home health [id number] encounter requirements with this patient. The encounter with the patient was in whole, or in part, for the following medical condition, which is the primary reason for home health care (list medical condition): I certify that, based on my findings, the following services are medically necessary home health services: My clinical findings support the need for the above services because: Further, I certify that my clinical findings support that this patient is homebound (i.e. absences from home require considerable and taxing effort and are for medical reasons or bahai services or infrequently or of short duration when for other reasons) because: Certification for Home Health Services: Based on the above findings, I certify that this patient is confined to the home and needs intermittent long-term care, physical therapy and/or speech therapy or continues to need occupational therapy. The patient is under my care, and I have initiated the establishment of the plan of care. This patient will be followed by a physician who will periodically review the plan of care. Total Time Total Time Spent Total Time Spent (In Minutes): 45 Discharge Plan Discharge Items Patient Disposition: Home - Self-Care Reason For Visit: N/V, ABDOMINAL PAIN Discharge Diagnosis: Abdominal pain, vomiting, diarrhea Possible viral gastroenteritis Condition on Discharge: Fair Activity: Resume your previous activity Non-emergency contact: Primary Care Provider Call non-emergency contact if: you have any medication questions and your symptoms worsen Follow-up/Referrals: Timoteo Muniz MD [Primary Care Provider] - (Date & Time 10/30/2023 2:00 PM Provider Timoteo Muniz MD Department [facility] ) Diet: Carb Consistent or DM2 Addtl Attending Provider Instructions: Follow-up with your primary care physician within a week time and likely you will need labs CBC/CMP/magnesium/phosphorus. You were evaluated for possible viral gastroenteritis, your diarrhea has resolved now. Continue to ambulate/maintain adequate hydration/can use [id number] laxatives to prevent constipation. Follow-up with your GI as an outpatient for your planned gastric emptying test. Take your medications as prescribed. Please make sure that you are able to get your medications today by calling your pharmacy before you leave the hospital so that your treatment continuity is not broken. Pending Studies at Discharge: No Stand-Alone Forms: My [facility] [employer], Smoking Cessation Medications and DC Order Prescriptions: Continued (DME) OneTouch Verio test strips Strip See Rx Instructions .Route Qty: 100 0RF Rx Instructions: As directed. Check blood glucose twice a day omeprazole 40 mg capsule,delayed release(DR/EC) 40 mg PO DAILYBB ondansetron 4 mg tablet,disintegrating 4 mg translingual DIRECTED PRN (Reason: NAUSEA/VOMITING) (DME) OneTouch Verio test strips Strip See Rx Instructions .Route Qty: 100 0RF Rx Instructions: As directed (DME) lancets [OneTouch Delica Plus Lancet] 33 gauge misc See Rx Instructions .Route Qty: 100 0RF Rx Instructions: As directed (DME) pen needle, diabetic [Pen Needle] 32 gauge x 5/32" needle See Rx Instructions .Route Qty: 100 0RF Rx Instructions: As directed levothyroxine 200 mcg tablet 200 mcg PO DAILYBB albuterol sulfate 90 mcg/actuation HFA aerosol inhaler 2 puff INHALATION Q4 PRN (Reason: Shortness Of Breath Or Wheezing) fluticasone propionate 50 mcg/actuation spray,suspension 1 spray INTRANASAL DAILY PRN (Reason: Congestion) metformin 500 mg tablet extended release 24 hr 1,000 mg PO AMPM insulin glargine 100 unit/mL (3 mL) insulin pen 24 unit subcut QAM Mag 64 64 mg Tablet,Delayed Release (Dr/Ec) 64 mg PO BID Qty: 60 0RF metoclopramide HCl [Reglan] 5 mg tablet 5 mg PO TID PRN (Reason: nausea and vomiting) Qty: 20 0RF gabapentin 300 mg capsule 300 mg PO HS dicyclomine 10 mg Capsule 10 mg PO TID PRN (Reason: abdominal pain) Qty: 20 0RF Discharge Orders: Discharge Order (Routine); Ordered 10/21/23 Ordered By: Karen Martínez Admission Data Admit Date/Time: 10/19/23 03:01 Attending Provider: Karen Martínez Admit Provider: Hubert Guidry Primary Care Provider: Timoteo Muniz Other Providers: Hubert Guidry; Sage Moon; Yfn Rapp; Purnima Shepherd; Ana Moscoso; Sruthi Plata; Re Marin; Marcelino Gallegos; Jairo Cortes; Matilde Garzon; Coleman Weston; Sabiha Gibbs; Steph Harding; Pamela Deal; Sofi Dooley; Blanquita Fulton; George Wyatt; Pedro Luis Weaver; oJn Lerner; Nafisa Vargas; Bryant Simmons Jr
== END 2023-10-21 16:19 | disposition home or self-care (01) ==
LOC: 3W 20:31 → ED 20:31 → SUATTDRO 10-19 03:01 → 3W 10-19 04:42

== ENCOUNTER 2024-01-07 08:21 | Observation (INO) ==
[2024-01-07] MEDS: ONDANSETRON INJ 2 MG/ML 2 ML VIAL IV STA (08:51)
[2024-01-07] MEDS: MoRPHine SULFATE 4 MG/ML 1 ML CARP\\VIAL IV STA ×2 (08:51→10:19)
[2024-01-07] MEDS: SODIUM CHLORIDE 0.9% 1,000 ML IV STA ×2 (08:52)
[2024-01-07 09:14] LABS: Basophils # (auto) 0.08 K/uL (0.00-0.20); Basophils % (auto) 0.7 %; Eosinophils # (auto) 0.02 K/uL (0.00-0.50); Eosinophils % (auto) 0.2 %; Hematocrit (blood only) 47.2 % (37.0-47.0); Hemoglobin 15.9 g/dl (12.0-16.0); Immature Granulocytes # (auto) 0.04 K/uL (0.01-0.20); Immature Granulocytes % (auto) 0.4 %; Lymphocytes # (auto) 2.18 K/uL (1.20-3.40); Lymphocytes % (auto) 19.5 %; Mean Corpuscular Hemoglobin 29.2 pg (25.0-34.0); Mean Corpuscular Hgb Conc 33.7 g/dL (32.0-36.0); Mean Corpuscular Volume 86.8 fL (80.0-100.0); Monocytes # (auto) 0.63 K/uL (0.11-0.59); Monocytes % (auto) 5.6 %; Neutrophils # (auto) 8.22 K/uL (1.40-6.50); Neutrophils % (auto) 73.6 %; Platelet Count 307 K/uL (130-400); RDW Coefficient of Variation 13.9 % (11.5-14.5); RDW Standard Deviation 43.6 fL (36.4-46.3); Red Blood Count 5.44 M/uL (4.20-5.40); White Blood Count 11.17 K/ul (4.8-10.8)
--- NOTE | 2024-01-07 09:29 | Emergency Department Note ---
Impression & Plan Abdominal pain, Nausea & vomiting ED Provider Note NAME: NATHALIA MARY AGE: 53 SEX: Female INFORMANT: Patient ED PROVIDER(S): Pedro Abdalla MD CHIEF COMPLAINT: Abdominal pain PLAN: Disposition: Admitted Outpatient prescription management: none Referral: None MEDICAL DECISION MAKING: Patient presented with abdominal pain. She had an IV established. X-ray imaging ordered. She was treated with fluids, Zofran, and morphine. Patient required additional dose of pain medicine and also IV Phenergan. X-ray imaging was unremarkable. Her CBC showed a mild leukocytosis and AST is mildly elevated. Patient had some mild DIANE with bump in her creatinine. Due to the pain, leukocytosis, and DIANE CT imaging was ordered. No acute process was noted. I discussed further management in the hospital with the patient. She was in agreement. [facility] 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 Vital Signs: reviewed and remarkable for no significant abnormalities Additional History obtained from: none Chronic Medical/Social Conditions affecting care: IBS, diabetes Prior/ Outside/ External records reviewed: Discharge summary from October 2023 reviewed. Patient treated symptomatically and pain was controlled. No surgical intervention. Differential Diagnosis: Acute exacerbation of chronic abdominal pain, IBS, constipation, renal colic, UTI, appendicitis, diverticulitis, mesenteric ischemia, aortic pathology, infections, inflammatory bowel disease, PUD, biliary pathology, as well as other pathologies. Diagnostics, independently interpreted by me: ECG: none Cardiac Monitoring: Cardiac monitoring ordered by me: The patient was placed on continuous cardiac monitoring and observed. It revealed a normal sinus rhythm at 66 beats per minute without ectopy or evidence of dysrhythmia. Medical decision rules: none Imaging studies: I refer you to the EMR for further details. HPI: 53 year old Female arrives for evaluation of abdominal pain. This started years ago and is recurring problem for the patient. She notes this episode is continuing from her last ER visit on the 13th of this month, 10 days ago. The patient also notes the following associated symptoms, nausea and vomiting. Poor appetite. Patient also notes lack of bowel movement. The patient has tried enemas and magnesium citrate for relieving factors. Current pain is rated as 7/10. Patient has a history of obstruction is concerned the same. She also notes abdominal distention. She did note feeling sweaty with the discomfort when she was trying to have a bowel movement. Pt denies LOC, headache, fevers, chills, visual changes, neck pain, chest pain, breathing difficulties, back pain, melena, hematochezia, urinary symptoms, numbness, weakness, lymphadenopathy, rash, or other complaints. PAST MEDICAL HISTORY: See Below, IBS, bowel obstruction, endometriosis PAST SURGICAL HISTORY: See Below, hysterectomy hemorrhoidectomy SOCIAL HISTORY: See Below, smoker HOME MEDICATIONS: See Below ALLERGIES: See Below VITALS: See Below PHYSICAL EXAMINATION: GENERAL: Awake, alert, uncomfortable -appearing, in no distress HENT: Normocephalic, atraumatic. Oropharynx unremarkable. EYES: Normal conjunctiva. Sclera non-icteric. NECK: Inspection normal. Non-tender. Supple. No nuchal rigidity. FROM. No masses. RESPIRATORY: Clear to auscultation. No wheezes. No rales. Normal respiratory effort. CARDIAC: Normal rate. Normal rhythm. No murmurs. No rubs. Extremities warm and well perfused. Pulses equal. No JVD. GI: Soft, mild-distended. Generalized tenderness to palpation. No rebound or guarding. No masses. RECTAL: Deferred. MUSCULOSKELETAL: Atraumatic. Chest examination reveals no tenderness. The back is symmetrical on inspection without obvious abnormality. There is no CVA tenderness to palpation. No joint edema. LOWER EXTREMITIES: Calves are equal size bilaterally and non-tender. No edema. No discoloration. NEURO: Normal sensorium. No sensory or motor deficits noted. SKIN: No rash or jaundice noted. PROCEDURES: none CRITICAL CARE: none OBSERVATION NOTE: none Past Med/Surg History Problem List (Updated 01/07/24 @ 14:24 by Lizz Isaac PA-C) Nausea & vomiting (Acute) Abdominal pain (Acute) DIANE (acute kidney injury) (Acute) Type 2 diabetes mellitus Diabetes IBS (irritable bowel syndrome) (Chronic) Hypothyroidism (Chronic) Depression (Chronic) Endometriosis (Chronic) Medical History (Updated 01/07/24 @ 14:24 by Lizz Isaac PA-C) Nausea and vomiting Surgical History (Updated 01/07/24 @ 14:24 by Lizz Isaac PA-C) H/O: hysterectomy History of cholecystectomy History of appendectomy H/O hemorrhoidectomy H/O laparoscopy "lysis of adhesions" H/O wisdom tooth extraction Social History Smoking Status: Current some day smoker Tobacco Type: Cigarettes Cigarettes Per Day: 1/2 pack day; Second Hand Exposure: No; Do You Dip or Chew Tobacco: No; Tobacco Cessation Education Requested by Patient: No Hx Alcohol Use: No Hx Substance Use: No Preferred Language: Tajik Communication Ability: Effective 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: No Beliefs That Will Affect Care: None Current Living Situation: Family and Significant Other Current Living Situation Comment: father staying w/ pt and grandson Other Information That Helps Us Care for You: No Feels Safe at Home: Yes Safety Concerns: Feels Safe At This Time Assistive Devices: None Allergies Allergies Allergy/AdvReac Type Severity Reaction Status Date / Time nabumetone Allergy Intermediate swelling Verified 01/07/24 14:01 NSAIDS (Non-Steroidal Allergy Intermediate SWELLING Verified 10/24/23 08:38 Anti-Inflamma acetaminophen AdvReac Intermediate VOMITING, Verified 10/24/23 08:38 RASH--RAISES LIVER ENZYMES Home Meds Home Medications Medication Instructions Recorded Confirmed omeprazole 40 mg capsule,delayed 40 mg PO DAILYBB 01/14/23 01/07/24 release ondansetron 4 mg disintegrating 4 mg translingual Q4H PRN 04/24/23 01/07/24 tablet NAUSEA/VOMITING albuterol sulfate 90 mcg/actuation 2 puff inhalation Q4 PRN Shortness 07/01/23 01/07/24 aerosol inhaler Of Breath Or Wheezing fluticasone propionate 50 1 spray intranasal DAILY PRN 07/01/23 01/07/24 mcg/actuation nasal Congestion spray,suspension insulin glargine 100 unit/mL (3 26 unit subcut QAM 07/01/23 01/07/24 mL) subcutaneous pen levothyroxine 200 mcg tablet 200 mcg PO DAILYBB 07/01/23 01/07/24 metformin 500 mg tablet,extended 1,000 mg PO AMPM 07/01/23 01/07/24 release 24 hr gabapentin 300 mg capsule 300 mg PO AMHS 10/19/23 01/07/24 cholecalciferol (vitamin D3) 1,250 50,000 unit PO WK 01/07/24 01/07/24 mcg (50,000 unit) capsule duloxetine 30 mg capsule,delayed 30 mg PO QAM 01/07/24 01/07/24 release lorazepam 0.5 mg tablet 0.5 mg PO QAM PRN Anxiety 01/07/24 01/07/24 magnesium chloride 64 mg 64 mg PO DAILY 01/07/24 01/07/24 (magnesium chloride) tablet,delayed release (Mag 64) Previous Rx's Medication Instructions Recorded blood sugar diagnostic (OneTouch #100 ea 12/01/22 Verio test strips) blood sugar diagnostic (OneTouch #100 ea 04/29/23 Verio test strips) lancets 33 gauge (OneTouch Delica #100 ea 04/29/23 Plus Lancet) pen needle, diabetic 32 gauge x #100 ea 04/29/23 5/32" (Pen Needle) metoclopramide HCl 5 mg tablet 5 mg PO TID PRN nausea and 07/04/23 (Reglan) vomiting #20 tabs dicyclomine 10 mg capsule 10 mg PO TID PRN abdominal pain 10/21/23 #20 caps Results & Data (ED) Vital Signs Vital Signs - 24 hr 01/07/24 09:40 01/07/24 09:40 01/07/24 11:40 Pulse Rate Pulse Rate [Finger] 104 H 105 H Respiratory Rate 18 18 Respiratory Effort / Characteristics Non-Labored Spontaneous Non-Labored Spontaneous Respiratory Depth Normal Normal Respiratory Pattern Regular Regular Blood Pressure Blood Pressure [Right Arm] 151/100 H 189/130 H Blood Pressure Mean Blood Pressure Mean [Right Arm] 117 149 Blood Pressure Position [Right Arm] Sitting Sitting Pulse Oximetry 98 98 96 Oxygen Delivery Method Room Air Room Air Room Air 01/07/24 13:46 Pulse Rate 95 H Pulse Rate [Finger] Respiratory Rate 18 Respiratory Effort / Characteristics Respiratory Depth Respiratory Pattern Blood Pressure 171/107 H Blood Pressure [Right Arm] Blood Pressure Mean 123 Blood Pressure Mean [Right Arm] Blood Pressure Position [Right Arm] Pulse Oximetry 95 Oxygen Delivery Method Laboratory Data 01/08/24 05:39 01/08/24 05:39 Lab Results 01/07/24 01/07/24 Range/Units 08:56 11:03 WBC 11.17 H (4.8-10.8) K/ul RBC 5.44 H (4.20-5.40) M/uL Hgb 15.9 (12.0-16.0) g/dl Hct 47.2 H (37.0-47.0) % MCV 86.8 (80.0-100.0) fL MCH 29.2 (25.0-34.0) pg MCHC 33.7 (32.0-36.0) g/dL RDW Std Deviation 43.6 (36.4-46.3) fL RDW Coeff of Adolfo 13.9 (11.5-14.5) % Plt Count 307 (130-400) K/uL MPV 9.0 L (9.4-12.4) fL Immature Gran % (Auto) 0.4 % Neut % (Auto) 73.6 % Lymph % (Auto) 19.5 % [place] % (Auto) 5.6 % Eos % (Auto) 0.2 % Baso % (Auto) 0.7 % Neut # (Auto) 8.22 H (1.40-6.50) K/uL Lymph # (Auto) 2.18 (1.20-3.40) K/uL [place] # (Auto) 0.63 H (0.11-0.59) K/uL Eos # (Auto) 0.02 (0.00-0.50) K/uL Baso # (Auto) 0.08 (0.00-0.20) K/uL Immature Gran # (Auto) 0.04 (0.01-0.20) K/uL Sodium 139 (136-145) mmol/L Potassium TNP 3.6 Chloride 103 (98-107) mmol/L Carbon Dioxide 25 (21-32) mmol/L Anion Gap 11 (3-11) BUN 26 H (6-23) mg/dl Creatinine 1.50 H (0.6-1.2) mg/dl Est Cr Clr Drug Dosing 45.6 ml/min Est GFR ( Amer) 45.9 ml/min Est GFR (Non-Af Amer) 39.6 ml/min BUN/Creatinine Ratio 17.3 (10-20) Glucose 167 H (70-99(Fasting)) mg/dl Calcium 10.0 (8.6-10.3) mg/dl Total Bilirubin 0.5 (0.2-1.0) mg/dl AST TNP 94 H ALT 19 (7-52) U/L Alkaline Phosphatase 97 (34-104) U/L Total Protein 8.4 H (6.0-8.3) gm/dl Albumin 4.8 (3.4-5.0) gm/dl Globulin 3.6 (2.5-4.0) gm/dl Albumin/Globulin Ratio 1.3 (0.9-2) Lipase 24 (11-82) U/L Urine Color Dark Yellow Urine Appearance Cloudy A (Clear) Urine pH 5.0 (4.5-7.5) Ur Specific [place] 1.033 H (1.000-1.030) Urine Protein 1+ H (Negative) Urine Glucose (UA) Negative (Negative) Urine Ketones Trace H (Negative) Urine Blood 2+ H (Negative) Urine Nitrite Negative (Negative) Urine Bilirubin 2+ H (Negative) Urine Urobilinogen Negative (Negative) Ur Leukocyte Esterase 1+ H (Negative) Urine WBC (Auto) 11-20 H (0-5) /hpf Urine RBC (Auto) 3-5 H (0-2) /hpf U Hyaline Cast (Auto) >20 H (0-2) /lpf U Epithel Cells (Auto) 11-20 H (0-2) /hpf Urine Bacteria (Auto) 2+ H (None Seen) Administered Medications Carvedilol (Carvedilol 3.125 Mg Tab) 3.125 mg PO BIDM [facility] Stop: 02/06/24 19:59 Last Admin: 01/07/24 20:02 Dose: 3.125 mg Documented By: LOI Dicyclomine HCl (Dicyclomine Hcl 10 Mg Cap) 10 mg PO TID PRN PRN Reason: abdominal pain Stop: 02/06/24 15:16 Last Admin: 01/08/24 01:30 Dose: 10 mg Documented By: Admin: 01/07/24 15:38 Dose: 10 mg Documented By: MELVIN Docusate Sodium (Docusate Sodium 100 Mg Cap) 100 mg PO BID ANTHONY Stop: 02/06/24 20:59 Last Admin: 01/07/24 20:03 Dose: 100 mg Documented By: OLI Gabapentin (Gabapentin 300 Mg Cap) 300 mg PO AMHS [facility] Stop: 02/06/24 20:59 Last Admin: 01/07/24 20:02 Dose: 300 mg Documented By: OLI Ceftriaxone Sodium (Rocephin) 2,000 mg in 50 mls @ 100 mls/hr IV Q24H [facility] Stop: 01/12/24 17:59 Last Infusion: 01/07/24 19:40 Dose: Infused Documented By: Admin: 01/07/24 18:57 Dose: 100 mls/hr Documented By: LEX Insulin Aspart (Insulin Aspart Per Unit Charge) 0 units SC ACHS [facility] Stop: 02/06/24 17:59 Last Admin: 01/08/24 09:01 Dose: Not Given Documented By: Admin: 01/07/24 20:14 Dose: 1 units Documented By: OLI Co-signed By: ALEKSANDER Admin: 01/07/24 18:35 Dose: Not Given Documented By: LEX Levothyroxine Sodium (Levothyroxine Sodium 200 Mcg Tablet) [facility] Stop: 02/07/24 06:29 Last Admin: 01/08/24 05:26 Dose: 200 mcg Documented By: OLI Melatonin (Melatonin 3 Mg Tab) 3 mg PO HS PRN PRN Reason: Sleep Stop: 02/06/24 20:25 Last Admin: 01/08/24 01:29 Dose: 3 mg Documented By: OLI Morphine Sulfate (Morphine Sulfate 2 Mg/Ml Carp) 2 mg IV TID PRN PRN Reason: Severe Pain (Scale 7, 8, 9,10) Stop: 01/21/24 19:39 Last Admin: 01/08/24 05:28 Dose: 2 mg Documented By: OLI Ondansetron HCl (Ondansetron Inj 2 Mg/Ml 2 Ml Vial) 4 mg IV Q4H PRN PRN Reason: Nausea And Vomiting Stop: 02/06/24 17:40 Last Admin: 01/07/24 20:04 Dose: 4 mg Documented By: OLI Pantoprazole Sodium (Pantoprazole 40 Mg Tab) 40 mg PO DAILYBB [facility] Stop: 02/07/24 06:29 Last Admin: 01/08/24 05:26 Dose: 40 mg Documented By: OLI Discontinued Medications Sodium Chloride (Nss) 1,000 mls @ 999 mls/hr IV .Q1H1M STA Stop: 01/07/24 09:35 Last Infusion: 01/07/24 09:53 Dose: Infused Documented By: Admin: 01/07/24 08:52 Dose: 999 mls/hr Documented By: SKAubrey Sodium Chloride (Nss) 1,000 mls @ 125 mls/hr IV .Q8H STA Stop: 01/07/24 16:34 Last Infusion: 01/07/24 14:54 Dose: Infused Documented By: Admin: 01/07/24 08:52 Dose: 125 mls/hr Documented By: SKAubrey Promethazine HCl (Phenergan) 25 mg in 51 mls @ 204 mls/hr IV NOW STA Stop: 01/07/24 10:09 Last Infusion: 01/07/24 10:19 Dose: Infused Documented By: SKAubrey Admin: 01/07/24 10:03 Dose: 204 mls/hr Documented By: BARRETT Sodium Chloride (Nss) 500 mls @ 999 mls/hr IV .Q31M ONE Stop: 01/07/24 14:26 Last Infusion: 01/07/24 17:58 Dose: Infused Documented By: Admin: 01/07/24 14:27 Dose: 999 mls/hr Documented By: SKAubrey Lactated Ringer's (Lr) 1,000 mls @ 80 mls/hr IV .[id number] ATNHONY Stop: 01/08/24 06:10 Last Infusion: 01/08/24 09:00 Dose: Infused Documented By: Infusion: 01/07/24 19:40 Dose: 80 mls/hr Documented By: Infusion: 01/07/24 19:02 Dose: 0 mls/hr Documented By: Admin: 01/07/24 18:16 Dose: 80 mls/hr Documented By: MES Labetalol HCl (Labetalol Hcl Iv 5 Mg/Ml 20ml) 10 mg IV NOW STA Stop: 01/07/24 15:16 Last Admin: 01/07/24 15:30 Dose: Not Given Documented By: LCD Morphine Sulfate (Morphine Sulfate 4 Mg/Ml 1 Ml Carp\\Vial) 4 mg IV NOW STA Stop: 01/07/24 08:42 Last Admin: 01/07/24 08:51 Dose: 4 mg Documented By: SKB Morphine Sulfate (Morphine Sulfate 4 Mg/Ml 1 Ml Carp\\Vial) 4 mg IV NOW STA Stop: 01/07/24 10:10 Last Admin: 01/07/24 10:19 Dose: 4 mg Documented By: BARRETT Morphine Sulfate (Morphine Sulfate 2 Mg/Ml Carp) 2 mg IV Q8H PRN PRN Reason: Severe Pain (Scale 7, 8, 9,10) Stop: 01/21/24 15:17 Last Admin: 01/07/24 16:17 Dose: 2 mg Documented By: MELVIN Morphine Sulfate (Morphine Sulfate 2 Mg/Ml Carp) 2 mg IV Q4H PRN PRN Reason: Severe Pain (Scale 7, 8, 9,10) Stop: 01/21/24 15:17 Last Admin: 01/07/24 21:35 Dose: 2 mg Documented By: OLI Ondansetron HCl (Ondansetron Inj 2 Mg/Ml 2 Ml Vial) 4 mg IV NOW STA Stop: 01/07/24 08:39 Last Admin: 01/07/24 08:51 Dose: 4 mg Documented By: BARRETT Discharge Plan Visit Data Chief Complaint: Abdominal Pain Stated Complaint: ABDOMINAL PAIN, VOMITING ED Provider: Pedro Abdalla Discharge Problem: Abdominal pain, Nausea & vomiting Patient Disposition: Admitted As Inpatient Discharge Instructions Interventions: ED Discharge Assessment Last Done: 01/07/24 16:56
[2024-01-07 09:35] LABS: Appearance Urine Cloudy (Clear); Bacteria Urine Automated 2+ (None Seen); Bilirubin Urine 2+ (Negative); Blood Urine 2+ (Negative); Cast Urine Automated >20 /lpf (0-2); Color Urine Dark Yellow; Glucose Urine UA Negative (Negative); Ketones Urine Trace (Negative); Leukocyte Esterase Urine 1+ (Negative); Nitrite Urine Negative (Negative); Protein Urine 1+ (Negative); Specific Gravity Urine 1.033 (1.000-1.030); Urobilinogen Urine Negative (Negative)
[2024-01-07] MEDS: PROMETHAZINE 25 MG/51 ML BAG IV STA (10:03)
--- NOTE | 2024-01-07 10:25 | XRay Report ---
XR abdomen 2V w PA chest HISTORY: 53 years-old Female abd pain, nausea and vomiting acute chest and abdominal pain with nause a and vomiting COMPARISON: 04/23/2023 radiographs, CT abdomen and pelvis 12/28/2023 TECHNIQUE: PA view of the chest with erect and supine views of the abdomen FINDINGS: Cardiomediastinal and hilar silhouettes are within normal limits. No pneumothorax, pleural effusion, airspace consolidation or pulmonary edema. Bones of the chest appear grossly intact. Cholecystectomy. No free air. No urolith, or bowel obstruction. Unchanged left pelvic basin phlebolit h. No acute fracture. IMPRESSION: 1. No acute process of the chest. 2. Nonobstructive bowel gas pattern. 3. Cholecystectomy. ACT 112: Negative or not required by law. The above report was generated using voice recognition software. It may contain grammatical, syntax o r spelling errors. Electronically signed by: Phong Camacho M.D. 01/07/2024 10:23 AM
[2024-01-07 10:51] LABS: Alanine Aminotransferase 19 U/L (7-52); Albumin Globulin Ratio 1.3 (0.9-2); Albumin Level 4.8 gm/dl (3.4-5.0); Alkaline Phosphatase 97 U/L (34-104); Anion Gap 11 (3-11); BUN Creatinine Ratio 17.3 (10-20); Bilirubin,Total 0.5 mg/dl (0.2-1.0); Blood Urea Nitrogen 26 mg/dl (6-23); Carbon Dioxide 25 mmol/L (21-32); Chloride 103 mmol/L (98-107); Creatinine Clr Calc Pharmacy 45.6 ml/min; Est GFR (African American) 45.9 ml/min; Est GFR (Non-African American) 39.6 ml/min; Globulin 3.6 gm/dl (2.5-4.0); Glucose 167 mg/dl (70-99(Fasting)); Lipase 24 U/L (11-82); Sodium 139 mmol/L (136-145); Total Protein 8.4 gm/dl (6.0-8.3)
[2024-01-07 11:47] LABS: Potassium 3.6 mmol/L (3.5-5.1)
[2024-01-07] MEDS: SODIUM CHLORIDE 0.9% 500 ML IV ONE (14:27)
--- NOTE | 2024-01-07 14:34 | History & Physical Report ---
Date of Service January 07, 2024 Assessment & Plan (1) Nausea & vomiting: (2) Abdominal pain: (3) DIANE (acute kidney injury): (4) Type 2 diabetes mellitus: (5) Diabetes: (6) IBS (irritable bowel syndrome): (7) Hypothyroidism: (8) Depression: Plan: Abdominal Pain Nausea & Vomiting DIANE IBS with gastroparesis - Admit to med surg with tele - Has had several abdominal surgeries in the past including: Colonoscopy and EGD. Hemorrhoidectomy. Laparoscopic excision of lesions for endometriosis. Laparoscopic fulguration of oviducts. Laparoscopic lysis of adhesions. Laparoscopic oophorectomy and salpingectomy. Appendectomy. Laparoscopic cholecystectomy. Total abdominal hysterectomy with removal of tubes. - Pt last colonoscopy was 07/14/23 with internal hemorrhoids, polyps in descending colon. Last EGD was 07/02/23 was normal esophagus, z line regular, stomach normal, duodenum normal. - Cont NSS for hydration while unable to tolerate PO, advance diet to clears as tolerated, antiemetics ordered - KUB abdomen is negative, CT abd normal - Cr. 1.5 on admission, appears her baseline is closer to 1.0 - KUB for tomorrow am to follow for SBO, currently none - She is using reglan and bentyl at home which she thinks helps normally - will continue, Last BM 3d ago - Pt received MS 4 mg IV x 2 in the ER, can potentially worsen gastroparesis so will only allow small dose 2 mg IV Q8H. - Consult GI with weekend coming up and hopeful for recs on gastric emptying study Hypertensive Urgency - likely secondary to dehydration vs underlying HTN - Prn labetolol 10 mg IV here with BP elevation, 178/107, recheck at bedside 138/107, now 137/86. - initiate coreg 3.125 BID DM II - Hold metformin - ISS and accuchecks achs - last A1c 5.6 in October 2022 - Pt glucoses have been under 150- she is getting a CGM from her PCP soon - Using lantus 26 U QAM currently, will continue as she is tolerating clears at bedside without difficulty, may consider advancing diet if pain improved Depression - Cont antidepressant medication: duloxetine, gabapentin Hypothyroidism - Cont levothyroxine - TSH to be repeated with am labs, was elevated during last admission Possible UTI - Ua appears dirty - pt denies any urinary symptoms - follow culture - Continue rocephin IV DVT ppx: ambulatory, scds Lines: 1 PIV Diet: Clears, advance as tolerated CODE: FULL Dispo: From home, likely to remain in the hospital x 1-2 days A total of 77 minutes were spent with greater than 50% of that time face to face with the patient, personally reviewing all current laboratories, imaging studies, past medication reconciliation, outpatient chart review, and discussion with specialists to collaborate care for the patient with attending. Please see attending documentation for corrections and/or additions. History of Present Illness Chief Complaint: Abdominal pain Primary Care Provider: Timoteo Muniz MD 53-year-old female with past medical history significant for type 2 diabetes, hypothyroidism, COPD, chronic rhinitis, irritable bowel syndrome, history of migraine, depression, tobacco use disorder, chronic narcotic use, presents with nausea vomiting since last week which stopped in the past 2 days. She is tolerating a liquid diet, but appetite is lower. She also notes continued abdominal pain into her back, and the RLQ, also in the LLQ when she has a bowel movement. Pt has worsening abdominal distension. Her last BM 3 days ago. She denies diarrhea. Normally she goes once daily when she is well. Aggravating factors include food of any kind, specifically breads and icecream. Pt can tolerate a glass of milk without issues. Her pain is worse in the past 24 hrs. Pt notes having hx of gastroparesis and needed to have gastric outlet study and also could possibly have adhesions in the stomach to be worsening pain. Pt reports having tried bowel regimen at home with mag citrate, enemas, and is having some bowel movements. Denies fever, chills, but admits to having some episodes of sweat this morning. Pt denies dysuria, increased urinary frequency, hematuria. Pt smokes about 1/2 ppd but is trying to cut back. She hasn't smoked in a few days due to feeling poorly. Pt denies alcohol use at all. She denies illicit drug use or marijuana use. Admitted to [facility] 10/19/23 - 10/21/23 with N, V, abd pain. After work up, felt to have viral gastroenteritis and gastroparesis. KUB is negative today. Cr is slightly elevated today. Pain was slightly improved with pain meds but pain again returned in the ER. She was given fluids, antiemetic and morphine sulfate 4 mg Iv x 2 without improvement. Allergies Allergy/AdvReac Type Severity Reaction Status Date / Time nabumetone Allergy Intermediate swelling Verified 01/07/24 14:01 NSAIDS (Non-Steroidal Allergy Intermediate SWELLING Verified 10/24/23 08:38 Anti-Inflamma acetaminophen AdvReac Intermediate VOMITING, Verified 10/24/23 08:38 RASH--RAISES LIVER ENZYMES Home Medications Medication Instructions Recorded Confirmed Type blood sugar diagnostic (OneTouch #100 ea 12/01/22 10/19/23 Rx Verio test strips) omeprazole 40 mg capsule,delayed 40 mg PO DAILYBB 01/14/23 01/07/24 History release ondansetron 4 mg disintegrating 4 mg translingual Q4H PRN 04/24/23 01/07/24 History tablet NAUSEA/VOMITING blood sugar diagnostic (OneTouch #100 ea 04/29/23 10/19/23 Rx Verio test strips) lancets 33 gauge (OneTouch Delica #100 ea 04/29/23 10/19/23 Rx Plus Lancet) pen needle, diabetic 32 gauge x #100 ea 04/29/23 10/19/23 Rx 5/32" (Pen Needle) albuterol sulfate 90 mcg/actuation 2 puff inhalation Q4 PRN Shortness 07/01/23 01/07/24 History aerosol inhaler Of Breath Or Wheezing fluticasone propionate 50 1 spray intranasal DAILY PRN 07/01/23 01/07/24 History mcg/actuation nasal Congestion spray,suspension insulin glargine 100 unit/mL (3 26 unit subcut QAM 07/01/23 01/07/24 History mL) subcutaneous pen levothyroxine 200 mcg tablet 200 mcg PO DAILYBB 07/01/23 01/07/24 History metformin 500 mg tablet,extended 1,000 mg PO AMPM 07/01/23 01/07/24 History release 24 hr metoclopramide HCl 5 mg tablet 5 mg PO TID PRN nausea and 07/04/23 01/07/24 Rx (Reglan) vomiting #20 tabs gabapentin 300 mg capsule 300 mg PO AMHS 10/19/23 01/07/24 History dicyclomine 10 mg capsule 10 mg PO TID PRN abdominal pain 10/21/23 01/07/24 Rx #20 caps cholecalciferol (vitamin D3) 1,250 50,000 unit PO WK 01/07/24 01/07/24 History mcg (50,000 unit) capsule duloxetine 30 mg capsule,delayed 30 mg PO QAM 01/07/24 01/07/24 History release lorazepam 0.5 mg tablet 0.5 mg PO QAM PRN Anxiety 01/07/24 01/07/24 History magnesium chloride 64 mg 64 mg PO DAILY 01/07/24 01/07/24 History (magnesium chloride) tablet,delayed release (Mag 64) Past Med/Surg History Problem List (Updated 01/07/24 @ 14:24 by Lizz Isaac PA-C) Nausea & vomiting (Acute) Abdominal pain (Acute) DIANE (acute kidney injury) (Acute) Type 2 diabetes mellitus Diabetes IBS (irritable bowel syndrome) (Chronic) Hypothyroidism (Chronic) Depression (Chronic) Endometriosis (Chronic) Medical History (Updated 01/07/24 @ 14:24 by Lizz Isaac PA-C) Nausea and vomiting Surgical History (Updated 01/07/24 @ 14:24 by Lizz Isaac PA-C) H/O: hysterectomy History of cholecystectomy History of appendectomy H/O hemorrhoidectomy H/O laparoscopy "lysis of adhesions" H/O wisdom tooth extraction Social History Smoking Status: Current every day smoker Tobacco Type: Cigarettes Cigarettes Per Day: 1/2 pack day; Second Hand Exposure: Yes; Do You Dip or Chew Tobacco: No; Hx Alcohol Use: No Hx Substance Use: No Preferred Language: Australian Communication Ability: Effective Affirmative Action Specialist Required: No Beliefs That Will Affect Care: None Current Living Situation: Family Current Living Situation Comment: father staying w/ pt and grandson Feels Safe at Home: Yes Assistive Devices: None Review of Systems Review of Systems: Constitutional: No fever or chills, + sweats Eyes: No diplopia, no worsening or blurred vision ENT: normal hearing, no trouble swallowing Respiratory: No cough, sputum, dyspnea at rest or on exertion Cardiovascular: No chest pain, tightness or palpitations Abdomen: As per HPI Musculoskeletal: No joint pain, calf pain, swelling Neurologic: No weakness, numbness/tingling, or balance problems Psychiatric: No anxiety or depression Skin: No rash or itch Physical Exam Physical Exam: General: awake, alert, no apparent distress, + obese white female. BMI 33.5 Head: Normocephalic, atraumatic ENT: PERRL, EOMI, no pharyngeal exudate, mucous membranes moist Chest: Clear to auscultation, on room air, no adventitious breath sounds Cardiac: sinus tachy, no murmur, no JVD, normal peripheral pulses, good capillary refill Abdominal: NABS x 4 quadrants, soft, nondistended, +tender to palpation right lower quad, no rebound or guarding Extremities: Normal inspection, no peripheral edema or erythema, calfs nontender to palpation Psych: worried mood and affect Neuro: AAO x 3, strength intact bilaterally and rated 5/5, no motor deficits, speech is clear, no peripheral sensory deficits Results & Data Results & Data Vital Signs (Past 12 Hours) Vital Signs Temp Pulse Pulse Resp BP BP Pulse Ox 01/07/24 11:40 105 H 18 189/130 H 96 01/07/24 09:40 98 01/07/24 09:40 104 H 18 151/100 H 98 01/07/24 08:59 114 H 01/07/24 08:26 36.7 C 122 H 18 160/95 H 96 O2 Del Method 01/07/24 11:40 Room Air 01/07/24 09:40 Room Air 01/07/24 09:40 Room Air 01/07/24 08:59 01/07/24 08:26 Room Air Laboratory Results 01/07/24 08:56 Urine Culture - Pending Urine,Clean Catch 01/07/24 01/07/24 11:03 08:56 WBC 11.17 H RBC 5.44 H Hgb 15.9 Hct 47.2 H MCV 86.8 MCH 29.2 MCHC 33.7 RDW Std Deviation 43.6 RDW Coeff of Adolfo 13.9 Plt Count 307 MPV 9.0 L Immature Gran % (Auto) 0.4 Neut % (Auto) 73.6 Lymph % (Auto) 19.5 [place] % (Auto) 5.6 Eos % (Auto) 0.2 Baso % (Auto) 0.7 Neut # (Auto) 8.22 H Lymph # (Auto) 2.18 [place] # (Auto) 0.63 H Eos # (Auto) 0.02 Baso # (Auto) 0.08 Immature Gran # (Auto) 0.04 Sodium 139 Potassium 3.6 TNP Chloride 103 Carbon Dioxide 25 Anion Gap 11 BUN 26 H Creatinine 1.50 H Est Cr Clr Drug Dosing 45.6 Est GFR ( Amer) 45.9 Est GFR (Non-Af Amer) 39.6 BUN/Creatinine Ratio 17.3 Glucose 167 H Calcium 10.0 Total Bilirubin 0.5 AST 94 H TNP ALT 19 Alkaline Phosphatase 97 Total Protein 8.4 H Albumin 4.8 Globulin 3.6 Albumin/Globulin Ratio 1.3 Lipase 24 Urine Color Dark Yellow Urine Appearance Cloudy A Urine pH 5.0 Ur Specific Floral 1.033 H Urine Protein 1+ H Urine Glucose (UA) Negative Urine Ketones Trace H Urine Blood 2+ H Urine Nitrite Negative Urine Bilirubin 2+ H Urine Urobilinogen Negative Ur Leukocyte Esterase 1+ H Urine WBC (Auto) 11-20 H Urine RBC (Auto) 3-5 H U Hyaline Cast (Auto) >20 H U Epithel Cells (Auto) 11-20 H Urine Bacteria (Auto) 2+ H Diagnostic Findings Chest/Abdomen X-ray 01/07/24 08:38 XR abdomen 2V w PA chest HISTORY: 53 years-old Female abd pain, nausea and vomiting acute chest and abdominal pain with nausea and vomiting COMPARISON: 04/23/2023 radiographs, CT abdomen and pelvis 12/28/2023 TECHNIQUE: PA view of the chest with erect and supine views of the abdomen FINDINGS: Cardiomediastinal and hilar silhouettes are within normal limits. No pneumothorax, pleural effusion, airspace consolidation or pulmonary edema. Bones of the chest appear grossly intact. Cholecystectomy. No free air. No urolith, or bowel obstruction. Unchanged left pelvic basin phlebolith. No acute fracture. IMPRESSION: 1. No acute process of the chest. 2. Nonobstructive bowel gas pattern. 3. Cholecystectomy. ACT 112: Negative or not required by law. The above report was generated using voice recognition software. It may contain grammatical, syntax or spelling errors. Electronically signed by: Phong Camacho M.D. 01/07/2024 10:23 AM Abdomen/Pelvis CT 01/07/24 13:56 CT abd pelvis wo con CLINICAL HISTORY: DIANE, abd pain TECHNIQUE: Helical axial images of the abdomen and pelvis were obtained. Automated dose lowering techniques and/or adjustment according to patient size were utilized for this exam. This exam was performed without intravenous contrast. CT DOSE: 1470.31 mGy.cm COMPARISON: Comparison is made to CT abdomen pelvis 12/28/2023 FINDINGS: Lower chest: Bibasilar atelectasis versus scarring is seen. Liver: Hepatic steatosis is noted. Gallbladder and biliary tree: Patient is status post cholecystectomy. No intra- or extrahepatic biliary ductal dilation. Pancreas: Unremarkable, no focal lesions. Spleen: Unremarkable. Adrenals: Unremarkable. Kidneys and ureters: Unremarkable. Bladder: Unremarkable. Reproductive organs: Unremarkable. Bowel: Patient is status post appendectomy. Lymph nodes Retroperitoneal: Unremarkable. Pelvic: Unremarkable. Mesenteric: Unremarkable. Peritoneum: Normal. Vessels: Atherosclerotic calcifications are seen. Abdominal wall: Unremarkable. Bones: Unremarkable. IMPRESSION: 1. No acute abnormality and in particular no evidence of hydronephrosis or obstructive stone. 2. Hepatic steatosis. 3. Additional findings as above. ACT 112: Negative or not required by law. Electronically signed by: Milton Thomas M.D. 01/07/2024 2:37 PM Code Status & VTE Plan Code Status Full code - discussed with pt at bedside Supervising Physician Co-Signing Physician Notes Patient is a 53-year-old female with history of diabetes mellitus, COPD, ongoing tobacco use disorder, hypothyroidism, irritable bowel syndrome and other medical problems presents with history of nausea, vomiting, abdominal pain and constipation which has been gradually worsening since last 2 days duration her appetite has been poor secondary to nausea, vomiting. She admits to have abdominal pain predominantly right lower quadrant, hypogastric associated with cramping and at times worse with food intake. Also admits to have some bloating. Last bowel movement 3 days ago. Denies any chest pain, fever, chills, dyspnea, dysuria and states her mouth is dry. Please review HPI for complete details of presentation. Blood work showed leukocytosis 11.1, BUN 26, creatinine 1.5, glucose 167, AST 94 otherwise within normal limits. Urinalysis suggestive of possible UTI. Toxicology screen pending currently. CT abdomen showed no acute process. Showed findings suggestive of hepatic steatosis. Patient had EGD in June 2023 which was normal. She states that she was scheduled for gastric emptying study as outpatient. Her blood pressure was elevated in the ED likely situational secondary to pain. Physical Exam: Vitals signs as noted above General Appearance:Obese, no apparent distress Head: normocephalic, Atraumatic Eyes: normal inspection, EOMI Neck: supple, Trachea midline Respiratory/Chest: Normal breath sounds, CTA, No accessory muscle use Cardiovascular: S1, S2, No murmur, +Tachycardia Abdomen/GI:Soft, generalized tender, Bowel sounds present, no guarding or rigidity Extremities/Musculoskeletal:normal inspection, Trace edema Neurologic/Psych:AAOX3, grossly no focal neurological deficits Skin: normal color, warm Nausea, vomiting, abdominal pain, constipation DD: Gastroparesis, irritable bowel syndrome Hepatic steatosis H/O appendectomy, cholecystectomy, hysterectomy, Laparoscopic oophorectomy and salpingectomy, lysis of adhesions DIANE Abnormal urinalysis--rule out UTI Agree with checking drug screen CT abdomen showed no acute process. Given multiple admissions, ER visits will consult GI Continue Reglan, Bentyl May eventually need gastric emptying study Clear liquid diet, advance as tolerated Gentle IV fluids Empirically started on Rocephin Cautious use of IV pain medications Stool studies if patient started with diarrhea Tobacco use disorder Muck Boss to quit smoking Refused nicotine patch Hypothyroidism Update TSH Continue levothyroxine I personally interviewed and examined at bedside. Patient's care is coordinated with Lizz Isaac PA-C. I have reviewed the advanced practitioner's documentation, and I agree with plan of care. Please refer to the documentation above for details of patient's presentation and for discussion of other issues. I spent a total [id number] coordinating, documenting, and providing care for this patient excluding time spent in the performance of separately billed services. (7) Hypothyroidism Hypothyroidism type: unspecified Qualified Code(s): E03.9 - Hypothyroidism, unspecified
--- NOTE | 2024-01-07 14:38 | CT Scan Report ---
CT abd pelvis wo con CLINICAL HISTORY: DIANE, abd pain TECHNIQUE: Helical axial images of the abdomen and pelvis were obtained. Automated dose lowering tech niques and/or adjustment according to patient size were utilized for this exam. This exam was perfor med without intravenous contrast. CT DOSE: 1470.31 mGy.cm COMPARISON: Comparison is made to CT abdomen pelvis 12/28/2023 FINDINGS: Lower chest: Bibasilar atelectasis versus scarring is seen. Liver: Hepatic steatosis is noted. Gallbladder and biliary tree: Patient is status post cholecystectomy. No intra- or extrahepatic bilia ry ductal dilation. Pancreas: Unremarkable, no focal lesions. Spleen: Unremarkable. Adrenals: Unremarkable. Kidneys and ureters: Unremarkable. Bladder: Unremarkable. Reproductive organs: Unremarkable. Bowel: Patient is status post appendectomy. Lymph nodes Retroperitoneal: Unremarkable. Pelvic: Unremarkable. Mesenteric: Unremarkable. Peritoneum: Normal. Vessels: Atherosclerotic calcifications are seen. Abdominal wall: Unremarkable. Bones: Unremarkable. IMPRESSION: 1. No acute abnormality and in particular no evidence of hydronephrosis or obstructive stone. 2. Hepatic steatosis. 3. Additional findings as above. ACT 112: Negative or not required by law. Electronically signed by: Milton Thomas M.D. 01/07/2024 2:37 PM
[2024-01-07] MEDS ORDERED: METOCLOPRAMIDE HCL 5 MG TABLET PO PRN (15:17)
[2024-01-07] MEDS: LABETALOL HCL IV 5 MG/ML 20ML IV STA (15:30)
[2024-01-07] MEDS: DICYCLOMINE HCL 10 MG CAP PO PRN (15:38)
[2024-01-07] MEDS: MoRPHine SULFATE 2 MG/ML CARP IV PRN ×2 (16:17→21:35)
[2024-01-07] MEDS ORDERED: DEXTROSE 50% 50 ML SYRINGE IV PRN (17:41)
[2024-01-07] MEDS ORDERED: GLUCAGON FOR INJ 1 MG VIAL SQ PRN (17:41)
[2024-01-07] MEDS ORDERED: LABETALOL HCL IV 5 MG/ML 20ML IV PRN (17:41)
[2024-01-07] MEDS ORDERED: GLUCOSE 10 TAB/TUBE PO PRN (17:41)
[2024-01-07] MEDS ORDERED: GLUCOSE 40% GEL 15 GM TUBE PO PRN (17:41)
[2024-01-07] MEDS ORDERED: CARBOHYDRATES FOR HYPOGLYCEMIA PO PRN (17:41)
[2024-01-07] MEDS: LACTATED RINGER'S 1,000 ML IV SCH (18:16)
[2024-01-07] MEDS: INSULIN ASPART PER UNIT CHARGE SC SCH (18:35)
[2024-01-07] MEDS: cefTRIAXone SODIUM 2,000 MG/50 ML BAG IV SCH (18:57)
[2024-01-07] MEDS: GABAPENTIN 300 MG CAP PO SCH (20:02)
[2024-01-07] MEDS: carvediloL 3.125 MG TAB PO SCH (20:02)
[2024-01-07] MEDS: DOCUSATE SODIUM 100 MG CAP PO SCH (20:03)
[2024-01-07] MEDS: ONDANSETRON INJ 2 MG/ML 2 ML VIAL IV PRN (20:04)
[2024-01-08] MEDS: MELATONIN 3 MG TAB PO PRN (01:29)
[2024-01-08 02:30] LABS: Amphetamines+Metham, Urine Pos (Neg); Barbiturates, Urine Neg (Neg); Benzodiazepine, Urine Neg (Neg); Cocaine, Urine Neg (Neg); MDMA (Ecstacy), Urine Pos (Neg); Marijuana, Urine Neg (Neg); Methadone, Urine Neg (Neg); Opiate, Urine Neg (Neg); Phencyclidine, Urine Neg (Neg)
[2024-01-08] MEDS: PANTOprazole 40 MG TAB PO SCH (05:26)
[2024-01-08] MEDS: LEVOTHYROXINE SODIUM 200 MCG TABLET PO SCH (05:26)
[2024-01-08] MEDS: MoRPHine SULFATE 2 MG/ML CARP IV PRN (05:28)
[2024-01-08 06:45] LABS: Hematocrit (blood only) 38.3 % (37.0-47.0); Hemoglobin 12.3 g/dl (12.0-16.0); Mean Corpuscular Hemoglobin 28.5 pg (25.0-34.0); Mean Corpuscular Hgb Conc 32.1 g/dL (32.0-36.0); Mean Corpuscular Volume 88.9 fL (80.0-100.0); Mean Platelet Volume 9.5 fL (9.4-12.4); Platelet Count 245 K/uL (130-400); RDW Coefficient of Variation 13.6 % (11.5-14.5); RDW Standard Deviation 44.7 fL (36.4-46.3); Red Blood Count 4.31 M/uL (4.20-5.40); White Blood Count 5.69 K/ul (4.8-10.8)
--- OUTSIDE RECORDS SUMMARY | 2024-01-08 06:45 | External Medical Summary | Summary of Care ---
Author Name Unknown Organization [facility] Address [address] [place] [address] Phone [phone] Care Team Providers Care Motor Scooter Mechanic Name Role Phone Timoteo Muniz MD Primary Care Provider +1- [phone] Encounter Details Date Type Department Care Team (Late st Contact Info) Description 01/04/2024 Orders Only Outcomes Research Department [address], [place] [id number] Sherine Nesbitt CHRA MyCode Research Other*[id number] Allergies Active Allergy Reactions Criticality Noted Date Comments Acetaminophen Liver complications (Please comment) High 06/27/2011 Nsaids Edema face/lips/tongue Medium 02/16/2006 documented as of this encounter (statuses as of 01/04/2024) Medications Medication Sig Dispensed Refills Start Date End Date Status IMITREX STATDOSE REFILL 6 MG/0.5ML SUBQ SOLNIndications:Migr boo 0.5 ML 1 TIME ONLY 1 Syringe 5 11/10/2012 Active Additional Information Patient not taking.Reported on 12/03/2022 aspirin enteric coated 81 MG TBEC Take 1 Tablet by mouth in the morning. Active clotrimazole (LOTRIMIN) 1 % creamIndications:Yea st infection Apply topically to affected area 2 times a day. To affacted area for two weeks. 24 g 1 08/05/2017 Active Blood Glucose Monitoring Suppl (Silentium SYSTEM) w/Device KITIndications:[place] marko glucose Use as directed 4 times a day as needed (fluctuating sugar). Use up to four times a day as directed 1 Kit 08/05/2017 Active ONETOUCH ULTRASOFT LANCETS MISCIndications:Elev ated [...] use with MDI as directed 1 Each 12/29/2018 Active albuterol-ipratropiu m (DUONEB) 2.5-0.5 MG/3ML [...] 2 times a day E11.9 1 Kit 12/01/2022 Active Magnesium Oxide 400 MG Oral Tablet Take 1 Tablet by mouth daily. 12/01/2022 Active Omeprazole 40 MG Oral Capsule [...] FOR WHEEZING. 54 g 1 06/18/2023 Active Betamethasone Dipropionate 0.05 % External OintmentIndications: [...] each nostril in the morning. 48 g 07/03/2023 Active Insulin Glargine 100 UNIT/ML Subcutaneous Solution Pen-injector (Lantus)Indications: Type 2 diabetes mellitus with hemoglobin A1c goal of less than 7.0% ([facility]) Inject 24 Units under the skin in the morning. 9 mL 11 08/07/2023 Active OneTouch Verio In Vitro Strip (Glucose Blood)Indications:DM type 2, not at goal ([facility]) Use up to 4 times a day E11.9 300 Strip 11 08/07/2023 Active Dicyclomine HCl 10 MG Oral Capsule (Bentyl)Indications: Irritable bowel syndrome, unspecified type TAKE 1 CAPSULE BY MOUTH THREE TIMES A DAY NEEDED FOR CRAMPING 30 Capsule 2 09/01/2023 Active Ondansetron 4 MG Oral Tablet Disintegrating (Zofran)Indications: Nausea DISSOLVE 1 TABLET ON TONGUE DIRECTED. 60 Tablet 09/01/2023 Active metFORMIN HCl ER 500 MG Oral Tablet Extended Release 24 Hour (Glucophage XR)Indications:DM type 2 nursing care encounter (HCC) Take 1 Tablet by mouth in the morning and 1 Tablet in the evening. 180 Tablet 3 09/23/2023 Active Gabapentin 300 MG Oral Capsule (Neurontin)Indicatio ns:Anxiety Take 1 tab by mouth twice per day 60 Capsule 1 10/30/2023 Active Mupirocin 2 % External Ointment (Bactroban) APPLY TO AFFECTED AREA 3 TIMES A DAY FOR 14 DAYS. 22 g 11/02/2023 Active DULoxetine HCl 30 MG Oral Capsule Delayed Release Particles (Cymbalta)Indication s:Anxiety Take 1 Capsule by mouth in the morning. Do not cut, crush or chew. 90 Capsule 3 11/24/2023 Active Vitamin D3 1.25 MG (07406 UT) Oral CapsuleIndications:V itamin D deficiency Take 1 Capsule by mouth once a week. 12 Capsule 3 12/18/2023 Active LORazepam 0.5 MG Oral Tablet (Ativan)Indications: Anxiety Take 1 Tablet by mouth 3 times a day as needed for Anxiety. 10 Tablet 01/01/2024 Active Hospital, Clinic, or Other Facility Administered Medication Ordered Dose Route Frequency Start Date End Date Status albuterol sulfate (PROVENTIL) (2.5 MG/3ML) 0.083% inhalation solution 2.5 mgIndications:Tobacco use disorder,Bronchitis, complicated,Wheeze 2.5 mg NEBULIZER Q4H PRN 01/27/2019 Active documented as of this encounter (statuses as of 01/04/2024) Active Problems Problem Noted Date Diagnosed Date [...] as of this encounter (statuses as of 01/04/2024) Resolved Problems Problem Noted Date Diagnosed Date [...] as of this encounter (statuses as of 01/04/2024) Immunizations Name Administration Dates Next Due Pneumococcal Conjugate Vacci ne, 20-valent ([id number]) 08/07/2023 Pneumococcal Polysaccharide PPV23 (Pneumovax) 06/29/2012,03/02/2009(Deferred: Contraindication [...] Care Team (Late st Contact Info) Description 01/05/2024 11:00 AM EDT Office Visit [facility] [address] [place] [address] Timoteo Muniz MD [address] [place] [address] 01/26/2024 9:00 AM EDT Office Visit Pharmacy, [place] [address] [place] [facility] [place] [address] [place] [facility] [address] [place] [facility] [place] [address] 02/10/2024 10:00 AM EDT Office Visit Family Practice, [place] [address] [facility] [address] Timoteo Muniz MD [address] [place] [address] Scheduled Orders Name Type Priority Associated Diagnoses Orde r Schedule MYCODE SUBSEQUENT ADULT Lab Routine MyCode Research Other*[id number] Every 6 Months for 2 Occurrences starting 01/04/2024 until 01/23/2025 Scheduled Procedures Name Priority Associated Diagnoses Date/Ti me COLONOSCOPY FLEXIBLE PROXIMA L DIAGNOSTIC Recall History of colonic polyps Health Maintenance Due Date Last Done Comments DISCUSS TOBACCO CESSATION (REFER TO SMARTSET #4058) 1971 Albumin/Creatinine Ratio 1989 Alpha-1 Antitrypsin 1989 Hepatitis B (1 of 3 - 19+ 3-dose series) 1990 Cologuard 02/10/2016 Fecal Occult Blood Test 02/10/2016 Sigmoidoscopy 02/10/2016 DTaP,Tdap,and Td Vaccines (2 - Td or Tdap) 11/24/2018 11/24/2008 Mammogram 03/22/2020 03/22/2019 Zoster Vaccines (1 of 2) 2021 B-12 04/26/2022 04/26/2021, 08/18, 09/04/2009 Lipid Panel 07/31/2022 07/31/2017 COVID-19 Vaccine ( - 2022- season) 2023 *COPD SEVERITY VERIFIED BY PFT 06/19/2023 HbA1c 12/16/2023 06/17/2023, 04/17, 09/09/2018, Additional history exists Influenza Vaccine (FLU shot) (Season Ended) 2024 08/05/2017, 06/29/2012, 06/17/2008 Depression Screening 06/17/2024 06/17/2023 Diabetic Eye Exam 06/17/2024 06/17/2023 Diabetic Foot Exam 06/17/2024 06/17/2023 GFR 06/17/2024 06/17/2023, 11/16, 12/03/2022, Additional history exists TSH 06/17/2024 06/17/2023, 01/16, 07/20/2019, Additional history exists O2 ASSESSMENT COMPLETED IN PAST YEAR FOR COPD 07/14/2024 07/14/2023 Colonoscopy 07/14/2028 07/14/2023, 06/18, 12/08/2000 Colorectal Cancer Screening 07/14/2028 Hepatitis C Screening Completed 08/05/2017 RETIRED - COLONOSCOPY-EVERY 5 YRS AGES 18-100 Discontinued 07/14/2023, 07/14/2023, 12/08/2000 Pneumococcal Vaccine: Pediatrics (0 to 5 Years) and At-Risk Patients (6 to 64 Years) Completed 08/07/2023, 06/29/2012 GARDASIL-HPV IMMUNIZATION SERIES Aged Out No longer eligible based on patient's age to complete this topic MENINGOCOCCAL (MENACTRA/MENVEO) Aged Out No longer eligible based on patient's age to complete this topic documented as of this encounter Medical Devices Not on filedocumented as of this encounter Visit Diagnoses Diagnosis MyCode Research Other*[id number] documented in this encounter Advance Directives * Full Code (Latest Code Status on File) Date Activated Date Inactivated Comments 09/06/2007 4:39 PM 09/08/2007 6:17 PM * Full Code Date Activated Date Inactivated Comments 09/06/2007 1:04 PM 09/06/2007 4:39 PM * Full Code Date Activated Date Inactivated Comments 09/02/2007 9:42 AM 09/03/2007 5:34 PM Care Teams Motor Scooter Mechanic Relationship Specialty Start Date End Date Timoteo Muniz MD [address] [place] [address] PCP - General Family Medicine 01/20/12 documented as of this encounter
--- OUTSIDE RECORDS SUMMARY | 2024-01-08 06:45 | External Medical Summary | Summary of Care ---
Author Name Unknown Organization [facility] Address [address] [place] [address] Phone [phone] Care Team Providers Care Director Of Infection Control Name Role Phone Lionel Mejias MD Primary Care Provider +1- [phone] Reason for Visit * Reason Onset Date Comments Medication Refill 01/01/2024 Encounter Details Date Type Department Care Team (Late st Contact Info) Description 01/01/2024 Refill [facility] [address] [place] [address] Lionel Mejias MD [address] [place] [address] Anxiety Allergies Active Allergy Reactions Criticality Noted Date Comments Acetaminophen Liver complications (Please comment) High 06/27/2011 Nsaids Edema face/lips/tongue Medium 02/16/2006 documented as of this encounter (statuses as of 01/01/2024) Medications Medication Sig Dispensed Refills Start Date [...] 1 08/05/2017 Active Blood Glucose Monitoring Suppl (PhylogyUCH ULTRA SYSTEM) w/Device KITIndications:Elev ated glucose Use as directed 4 times a day as needed (fluctuating sugar). Use up to four times a day as directed 1 Kit 0 08/05/2017 Active FOCUS RESEARCHTOUCH ULTRASOFT LANCETS MISCIndications:Maliha vated glucose Use as directed 4 times a day as needed (fluctuating sugar). Use up to four times a day as directed 1 Box Dosing Unit 11 08/05/2017 Active FOCUS RESEARCHTOUCH ULTRA BLUE STRPIndications:Maliha vated glucose USE FOUR [...] A DAY 36 g 3 02/08/2020 Active First Data CorporationTouch Verio w/Device KitIndications:DM type 2, not at [...] goal of less than 7.0% ([facility]) Inject 24 Units under the skin in the morning. 9 mL 11 08/07/2023 Active OneTouch Verio In Vitro Strip (Glucose Blood)Indications:D M type 2, not at goal ([facility]) Use up to 4 times a [...] 09/23/2023 Active Gabapentin 300 MG Oral Capsule (Neurontin)Indicati ons:Anxiety Take 1 tab by mouth twice per day 60 Capsule 1 10/30/2023 Active Mupirocin 2 % External Ointment (Bactroban) APPLY TO AFFECTED AREA 3 TIMES A DAY FOR 14 DAYS. 22 g 0 11/02/2023 Active DULoxetine HCl 30 MG Oral Capsule Delayed Release Particles (Cymbalta)Indicatio ns:Anxiety Take 1 Capsule by mouth in the morning. Do not cut, crush or chew. 90 Capsule 3 11/24/2023 Active Vitamin D3 1.25 MG (47823 UT) Oral CapsuleIndications: Vitamin D deficiency Take 1 Capsule by mouth once a week. 12 Capsule 3 12/18/2023 Active LORazepam 0.5 MG Oral Tablet (Ativan)Indications :Anxiety Take 1 Tablet by mouth 3 times a day as needed for Anxiety. 10 Tablet 0 01/01/2024 Active LORazepam 0.5 MG Oral Tablet (Ativan)Indications :Anxiety Take 1 Tablet by mouth 3 times a day as needed for Anxiety. 10 Tablet 0 11/26/2023 01/01/20 24 Discontinu ed(Refill) Hospital, Clinic, or Other Facility Administered Medication Ordered Dose Route Frequency Start Date End Date Status albuterol sulfate (PROVENTIL) (2.5 MG/3ML) 0.083% inhalation solution 2.5 mgIndications:Tobacco use disorder,Bronchitis, complicated,Wheeze 2.5 mg NEBULIZER Q4H PRN 01/27/2019 Active documented as of this encounter (statuses as of 01/01/2024) Active Problems Problem Noted Date Diagnosed Date Chronic obstructive pulmonary disease 06/17/2023 Type 2 diabetes mellitus wit h hemoglobin A1c goal of less than 7.0% 11/28/2022 Food insecurity 03/25/2021 Overview: Per [facility] Protocol Chronic narcotic use 12/29/2018 Hx of hysterectomy 12/12/2013 LFT elevation 09/07/2012 Chronic rhinitis 02/28/2003 Tobacco use disorder 04/19/2002 COMMON MIGRAINE WITHOUT MENTION OF INTRACTABLE M IGRAINE 12/28/2000 ADJ DISORDER W/DEPRES MOOD 10/23/1999 Irritable bowel syndrome 08/14/1999 Hypothyroidism 02/06/1999 documented as of this encounter (statuses as of 01/01/2024) Resolved Problems Problem Noted Date Diagnosed Date [...] as of this encounter (statuses as of 01/01/2024) Immunizations Name Administration Dates Next Due Pneumococcal Conjugate Vacci ne, 20-valent ([id number]) 08/07/2023 Pneumococcal Polysaccharide PPV23 (Pneumovax) 06/29/2012,03/02/2009(Deferred: Contraindication [...] Telephone Encounter - Lionel Mejias MD - 01/01/2024 4:18 PM EDTSigned Prescriptions: Disp Refills LORazepam 0.5 MG Oral Tablet (Ativan) 10 Tab*0 Sig: Take 1 Tablet by mouth 3 times a day as needed for Anxiety.Authorizing Provider: LIONEL MEJIAS * Telephone Encounter - Ngoc Rodriguez RP - 01/01/2024 4:09 PM EDTPending Prescriptions: Disp Refills LORazepam 0.5 MG Oral Tablet (Ativan) 10 Tab*0 Sig: Take 1 Tablet by mouth 3 times a day as needed for Anxiety. * Telephone Encounter - Ngoc Rodriguez [facility] - 01/01/2024 4:08 PM EDT I have reviewed the patients controlled substance dispensing history in the Prescription Drug Monitoring Program in compliance with the [place] regulations before prescribing a controlled substance. PDMP checked on 01/01/2024. Pending Prescriptions: Disp Refills LORazepam 0.5 MG Oral Tablet (Ativan) 10 Tab*0 Sig: Take 1 Tablet by mouth 3 times a day as needed for Anxiety. Last Visit: 10/30/2023 (in office), 02/16/2023 (telemedicine) Next Visit: 01/05/2024 Date medication was last filled: 11/26/23 Date medication is due for refill: 11/29/23 Pharmacy: [id number] [id number] [facility] Is this request for a controlled substance? Yes and Urine Drug Screen Not completed Toxicology results: Results for orders placed or performed in [...] results can be found in Results Review. Please approve if appropriate. Ngoc Schuster PharmD Clinical Pharmacist [facility] ([facility]) [phone] 01/01/2024, 4:09 PM documented in this encounter Plan of Treatment Upcoming Encounters Date Type Department Care Team (Late st Contact Info) Description 01/05/2024 11:00 AM EDT Office Visit [facility] [address] [place] [address] Lionel Mejias MD [address] [place] [address] 01/26/2024 9:00 AM EDT Office Visit Pharmacy, [place] [address] [place] [address] [facility] [address] [place] [address] 02/10/2024 10:00 AM EDT Office Visit Family Practice, [place] [address] [place] [facility] [place] [place] [id number] Lionel Mejias MD [address] [place] [facility] [place] [address] Scheduled Procedures Name Priority Associated Diagnoses Date/Ti me COLONOSCOPY FLEXIBLE PROXIMA L DIAGNOSTIC Recall History of colonic polyps Health Maintenance Due Date Last Done Comments DISCUSS TOBACCO CESSATION (REFER TO SMARTSET #9034) 1971 Albumin/Creatinine Ratio 1989 Alpha-1 Antitrypsin 1989 Hepatitis B (1 of 3 - 19+ 3-dose series) 1990 Cologuard 02/10/2016 Fecal Occult Blood Test 02/10/2016 Sigmoidoscopy 02/10/2016 DTaP,Tdap,and Td Vaccines (2 - Td or Tdap) 11/24/2018 11/24/2008 Mammogram 03/22/2020 03/22/2019 Zoster Vaccines (1 of 2) 2021 B-12 04/26/2022 04/26/2021, 08/18, 09/04/2009 Lipid Panel 07/31/2022 07/31/2017 COVID-19 Vaccine (1 - 2022- season) 2023 *COPD SEVERITY VERIFIED [...] as of this encounter Visit Diagnoses Diagnosis Anxiety Anxiety state, unspecified documented in this encounter Advance Directives Latest Code Status on File Code Status Date Activated Date Inactivated Comments Full Code 09/06/2007 4:39 PM 09/08/2007 6:17 PM Code Status History Code Status Date Activated Date Inactivated Comments Full Code 09/06/2007 1:04 PM 09/06/2007 4:39 PM Full Code 09/02/2007 9:42 AM 09/03/2007 5:34 PM Care Teams Director Of Infection Control Relationship Specialty Start Date End Date Lionel Mejias MD [address] [place] [facility] [place] [address] PCP - General Family Medicine 01/20/12 documented as of this encounter
--- OUTSIDE RECORDS SUMMARY | 2024-01-08 06:45 | External Medical Summary | Summary of Care ---
Author Name Unknown Organization [facility] Address [address] [place] [address] Phone [phone] Care Team Providers Care Berry Planter Name Role Phone Lionel Mejias MD Primary Care Provider +1- [phone] Reason for Visit * Reason Comments eRx-Medication Refill Encounter Details Date Type Department Care Team (Late st Contact Info) Description 01/02/2024 Refill [facility] [address] [place] [address] Lionel Mejias MD [address] [place] [address] Anxiety; Bronchitis, complicated Allergies Active Allergy Reactions Criticality [...] the morning. Active clotrimazole (LOTRIMIN) 1 % creamIndications:Ye ast infection Apply topically to affected area 2 times a day. To affacted area for two weeks. 24 g 1 7 Active Blood Glucose Monitoring Suppl (Dormzy ULTRA SYSTEM) w/Device KITIndications:Elev ated glucose Use as directed 4 times a day as needed (fluctuating sugar). Use up to four times a day as directed 1 Kit 7 Active MaistorPlusTOUCH ULTRASOFT LANCETS MISCIndications:Maliha vated glucose Use as directed 4 times a day as needed (fluctuating sugar). Use up to four times a day as directed 1 Box Dosing Unit 11 7 Active ONETOUCH ULTRA BLUE STRPIndications:Maliha vated glucose USE FOUR TIMES A DAY TO TEST SUGAR NEEDED 100 Strip 5 9 Active Spacer/Aero-Holding Chambers (OPTICHAMBER ADVANTAGE) MISCIndications:Bro nchitis, complicated,Tobacco use disorder,Wheeze use with MDI as directed 1 Each 9 Active albuterol-ipratropi um (DUONEB) 2.5-0.5 MG/3ML [...] 2 times a day E11.9 1 Kit 3 Active Magnesium Oxide 400 MG Oral Tablet Take 1 Tablet by mouth daily. 3 Active Omeprazole 40 MG Oral Capsule [...] PER DAY 510 g 5 3 Active Betamethasone Dipropionate 0.05 % External [...] each nostril in the morning. 48 g 3 Active Insulin Glargine 100 UNIT/ML Subcutaneous Solution Pen-injector (Lantus)Indications :Type 2 diabetes mellitus with hemoglobin A1c goal of less than 7.0% ([facility]) Inject 24 Units under the skin in the morning. 9 mL 11 3 Active OneTouch Verio In Vitro Strip (Glucose Blood)Indications:D M type 2, not at goal ([facility]) Use up to 4 times a day E11.9 300 Strip 11 3 Active Dicyclomine HCl 10 MG Oral Capsule (Bentyl)Indications :Irritable bowel syndrome, unspecified type TAKE 1 CAPSULE BY MOUTH THREE TIMES A DAY NEEDED FOR CRAMPING 30 Capsule 2 4 Active Ondansetron 4 MG Oral Tablet Disintegrating (Zofran)Indications :Nausea DISSOLVE 1 TABLET ON TONGUE DIRECTED. 60 Tablet 4 Active metFORMIN HCl ER 500 MG Oral Tablet Extended Release 24 Hour (Glucophage XR)Indications:DM type 2 nursing care encounter ([facility]) Take 1 Tablet by mouth in the morning and 1 Tablet in the evening. 180 Tablet 3 4 Active Mupirocin 2 % External Ointment (Bactroban) APPLY TO AFFECTED AREA 3 TIMES A DAY FOR 14 DAYS. 22 g 4 Active DULoxetine HCl 30 MG Oral Capsule Delayed Release Particles (Cymbalta)Indicatio ns:Anxiety Take 1 Capsule by mouth in the morning. Do not cut, crush or chew. 90 Capsule 3 4 Active Vitamin D3 1.25 MG (40747 UT) Oral CapsuleIndications: Vitamin D deficiency Take 1 Capsule by mouth once a week. 12 Capsule 3 4 Active LORazepam 0.5 MG Oral Tablet (Ativan)Indications :Anxiety Take 1 Tablet by mouth 3 times a day as needed for Anxiety. 10 Tablet 4 Active Gabapentin 300 MG Oral Capsule (Neurontin)Indicati ons:Anxiety TAKE 1 CAPSULE BY MOUTH TWICE A DAY 60 Capsule 1 4 Active Albuterol Sulfate HFA 108 (90 Base) MCG/ACT Inhalation Aerosol SolutionIndications :Bronchitis, complicated TAKE 2 PUFFS BY MOUTH EVERY 4 HOURS NEEDED FOR WHEEZE 18 g 3 4 Active Albuterol Sulfate HFA 108 (90 Base) MCG/ACT Inhalation Aerosol SolutionIndications :Bronchitis, complicated INHALE 2 PUFFS BY MOUTH EVERY 4 HOURS NEEDED FOR WHEEZING. 54 g 1 3 01/04/20 24 Discontinued Gabapentin 300 MG Oral Capsule (Neurontin)Indicati ons:Anxiety Take 1 tab by mouth twice per day 60 Capsule 1 4 01/04/20 24 Discontinued Hospital, Clinic, or Other Facility [...] 7.0% 11/28/2022 Food insecurity 03/25/2021 Overview: Per [email or web address] Protocol Chronic narcotic use 12/29/2018 [...] Next Due Pneumococcal Conjugate Vacci ne, 20-valent ([id number]) 08/07/2023 Pneumococcal Polysaccharide PPV23 (Pneumovax) 06/29/2012,03/02/2009(Deferred: Contraindication [...] Telephone Encounter - Lionel Mejias MD - 01/04/2024 5:17 PM EDTSigned Prescriptions: Disp Refills Gabapentin 300 MG Oral Capsule (Neurontin) 60 Cap*1 Sig: TAKE 1 CAPSULE BY MOUTH TWICE A DAYAuthorizing Provider: LIONEL MEJIAS Albuterol Sulfate HFA 108 (90 Base) MCG/AC*18 g 3 Sig: TAKE 2 PUFFS BY MOUTH EVERY 4 HOURS NEEDED FOR WHEEZEAuthorizing Provider: LIONEL MEJIAS * Telephone Encounter - Sandra Cruz LPN - 01/04/2024 8:54 AM EDTPending Prescriptions: Disp Refills Gabapentin 300 MG Oral Capsule [Pharmacy M*60 Cap*1 Sig: TAKE 1 CAPSULE BY MOUTH TWICE A DAY Albuterol Sulfate HFA 108 (90 Base) MCG/AC* 1 Sig: TAKE 2 PUFFS BY MOUTH EVERY 4 HOURS NEEDED FOR WHEEZE * Telephone Encounter - Jared Castro - 01/02/2024 1:57 PM EDTPending Prescriptions: Disp Refills Gabapentin 300 MG Oral Capsule [Pharmacy M*60 Cap*1 Sig: TAKE 1CAPSULE BY MOUTH TWICE A DAY Albuterol Sulfate HFA 108 (90 Base) MCG/AC* 1 Sig: TAKE 2 PUFFS BY MOUTH EVERY 4 HOURS NEEDED FOR WHEEZE documented in this encounter Plan of Treatment Upcoming Encounters Date Type Department Care Team (Late st Contact Info) Description 01/05/2024 11:00 AM EDT Office Visit [facility] [address] [place] [phone] Lionel Mejias MD [address] [place] [address] 01/26/2024 9:00 AM EDT Office Visit Pharmacy, [place] [address] [place] [address] [facility] [address] [place] [address] 02/10/2024 10:00 AM EDT Office Visit [facility] [address] [place] [phone] Lionel Mejias MD [address] [place] [address] Scheduled Procedures Name Priority Associated Diagnoses Date/Ti me COLONOSCOPY FLEXIBLE PROXIMA L DIAGNOSTIC Recall History of colonic polyps Health Maintenance Due Date Last Done Comments DISCUSS TOBACCO CESSATION (REFER TO SMARTSET #0385) 1971 Albumin/Creatinine Ratio 1989 Alpha-1 Antitrypsin 1989 Hepatitis B (1 of 3 - 19+ 3-dose series) 1990 Cologuard 02/10/2016 Fecal Occult Blood Test 02/10/2016 Sigmoidoscopy 02/10/2016 DTaP,Tdap,and Td Vaccines (2 - Td or Tdap) 11/24/2018 11/24/2008 Mammogram 03/22/2020 03/22/2019 Zoster Vaccines (1 of 2) 2021 B-12 04/26/2022 04/26/2021, 08/18, 09/04/2009 Lipid Panel 07/31/2022 07/31/2017 COVID-19 Vaccine ( season) 2023 *COPD SEVERITY VERIFIED BY PFT [...] Visit Diagnoses Diagnosis Anxiety Anxiety state, unspecified Bronchitis, complicated Bronchitis, not specified as acute or chronic documented in this encounter Advance Directives * Full Code (Latest Code Status on File) Date Activated Date Inactivated Comments 09/06/2007 4:39 PM 09/08/2007 6:17 PM * Full Code Date Activated Date Inactivated Comments 09/06/2007 1:04 PM 09/06/2007 4:39 PM * Full Code Date Activated Date Inactivated Comments 09/02/2007 9:42 AM 09/03/2007 5:34 PM Care Teams Berry Planter Relationship Specialty Start Date End Date Lionel Mejias MD [address] [place] [address] PCP - General Family Medicine 01/20/12 documented as of this encounter
[2024-01-08 06:55] LABS: BUN Creatinine Ratio 14.8 (10-20); Calcium 7.9 mg/dl (8.6-10.3); Creatinine Clr Calc Pharmacy 61.5 ml/min; Est GFR (African American) 63.4 ml/min; Est GFR (Non-African American) 54.7 ml/min; Potassium 3.6 mmol/L (3.5-5.1)
[2024-01-08 07:15] LABS: Thyroid Stimulating Hormone 21.494 uIu/ml (0.300-4.500)
[2024-01-08 07:51] LABS: T4 Free Thyroxine 0.9 ng/dl (0.61-1.60)
[2024-01-08] MEDS ORDERED: NON-FORMULARY MEDICATION (Insulin Glargine 100 unit/mL (3 mL) insulin pen) SQ SCH (09:00)
[2024-01-08] MEDS: DULoxetine HCL 30 MG CAP PO SCH (09:12)
[2024-01-08] MEDS: POLYETHYLENE (MIRALAX) 17 GM PACK PO PRN (09:18)
[2024-01-08] MEDS: ACETAMINOPHEN 325 MG TAB PO PRN (09:18)
[2024-01-08] MEDS: LANTUS PER UNIT CHARGE SQ SCH (09:19)
--- NOTE | 2024-01-08 09:33 | Gastrointestinal Consultation ---
Date of Consultation January 08, 2024 Assessment & Plan (1) Nausea & vomiting: (2) Abdominal pain: Plan 53 year old female with past medical history significant for type 2 diabetes, hypothyroidism, COPD, chronic rhinitis, irritable bowel syndrome, history of migraine, depression, tobacco use disorder, chronic narcotic use, presents with nausea, vomiting, abdominal pain for over a year but worse since last week. vomiting has resolved. she also reports constipation. She has had recent EGD and colonoscopy through [facility]. GI consulted for GES, but this can be done as an outpatient. - she can schedule GES as outpatient. - continue with Protonix 40mg once daily. - will start miralax 17gm daily given reported history of constipation. Supervising Physician Co-Signing Physician Notes Agree with DAHLIA Avalos as above Interviewed and examined patient and agree with above Abd: Soft, NT, ND, +BS Continue current therapy and supportive care History of Present Illness Reason for Consultation: Gastric emptying study Requesting Physician: Lizz Isaac PA-C Attending Physician: Juan Jose Mae MD History of Present Illness 53 year old female with past medical history significant for type 2 diabetes, hypothyroidism, COPD, chronic rhinitis, irritable bowel syndrome, history of migraine, depression, tobacco use disorder, chronic narcotic use, presented to the ER with nausea, vomiting, abdominal pain since last week but admits to this going on for more than a year. She follows with [facility] GI as an outpatient. she was in the hospital about 2 months ago and was to have a GES done but she never scheduled. GI consulted for this. She tells me she still feels nauseated but no further vomiting. still is having abdominal discomfort. She uses reglan as outpatient but no official diagnosis of gastroparesis. she tells me she had GES done long ago but unsure of results. she also admits to constipation. no bleeding or melena. she had EGD and colonoscopy with [facility] in 2022 showing internal hemorrhoids and tubular adenoma colon polyp. upper gi was unremarkable. During this admission she had unremarkable chest and abdominal xray and CT for acute causes of pain from GI standpoint. She admits to chronic issues with back pain. She used to follow with pain management and tells me they gave her dilaudid. She tells me she stopped going due to distance. She tells me she still has back pain which seems to be her main concern today and tells me she feels she needs pain medications more frequently. Allergies Allergy/AdvReac Type Severity Reaction Status Date / Time nabumetone Allergy Intermediate swelling Verified 01/07/24 14:01 NSAIDS (Non-Steroidal Allergy Intermediate SWELLING Verified 10/24/23 08:38 Anti-Inflamma acetaminophen AdvReac Intermediate VOMITING, Verified 10/24/23 08:38 RASH--RAISES LIVER ENZYMES Home Medications Medication Instructions Recorded Confirmed Type blood sugar diagnostic (OneTouch #100 ea 12/01/22 10/19/23 Rx Verio test strips) omeprazole 40 mg capsule,delayed 40 mg PO DAILYBB 01/14/23 01/07/24 History release ondansetron 4 mg disintegrating 4 mg translingual Q4H PRN 04/24/23 01/07/24 History tablet NAUSEA/VOMITING blood sugar diagnostic (OneTouch #100 ea 04/29/23 10/19/23 Rx Verio test strips) lancets 33 gauge (OneTouch Delica #100 ea 04/29/23 10/19/23 Rx Plus Lancet) pen needle, diabetic 32 gauge x #100 ea 04/29/23 10/19/23 Rx 5/32" (Pen Needle) albuterol sulfate 90 mcg/actuation 2 puff inhalation Q4 PRN Shortness 07/01/23 01/07/24 History aerosol inhaler Of Breath Or Wheezing fluticasone propionate 50 1 spray intranasal DAILY PRN 07/01/23 01/07/24 History mcg/actuation nasal Congestion spray,suspension insulin glargine 100 unit/mL (3 26 unit subcut QAM 07/01/23 01/07/24 History mL) subcutaneous pen levothyroxine 200 mcg tablet 200 mcg PO DAILYBB 07/01/23 01/07/24 History metformin 500 mg tablet,extended 1,000 mg PO AMPM 07/01/23 01/07/24 History release 24 hr metoclopramide HCl 5 mg tablet 5 mg PO TID PRN nausea and 07/04/23 01/07/24 Rx (Reglan) vomiting #20 tabs gabapentin 300 mg capsule 300 mg PO AMHS 10/19/23 01/07/24 History dicyclomine 10 mg capsule 10 mg PO TID PRN abdominal pain 10/21/23 01/07/24 Rx #20 caps cholecalciferol (vitamin D3) 1,250 50,000 unit PO WK 01/07/24 01/07/24 History mcg (50,000 unit) capsule duloxetine 30 mg capsule,delayed 30 mg PO QAM 01/07/24 01/07/24 History release lorazepam 0.5 mg tablet 0.5 mg PO QAM PRN Anxiety 01/07/24 01/07/24 History magnesium chloride 64 mg 64 mg PO DAILY 01/07/24 01/07/24 History (magnesium chloride) tablet,delayed release (Mag 64) Patient History Medical History (Updated 01/07/24 @ 14:24 by Lizz Isaac PA-C) Nausea and vomiting Surgical History (Updated 01/07/24 @ 14:24 by Lizz Isaac PA-C) H/O: hysterectomy History of cholecystectomy History of appendectomy H/O hemorrhoidectomy H/O laparoscopy "lysis of adhesions" H/O wisdom tooth extraction Social History Smoking Status: Current some day smoker Tobacco Type: Cigarettes Cigarettes Per Day: 1/2 pack day; Second Hand Exposure: No; Do You Dip or Chew Tobacco: No; Tobacco Cessation Education Requested by Patient: No Hx Alcohol Use: No Hx Substance Use: No Preferred Language: Upper Sorbian Communication Ability: Effective Unemployment Inspector Required: No Beliefs That Will Affect Care: None Current Living Situation: Family and Significant Other Current Living Situation Comment: father staying w/ pt and grandson Other Information That Helps Us Care for You: No Feels Safe at Home: Yes Safety Concerns: Feels Safe At This Time Assistive Devices: None Review of Systems Review of Systems: All systems reviewed & are unremarkable except as noted in HPI & below Physical Exam Constitutional: WD/WN, vitals as above Respiratory: normal respiratory effort, lungs clear to auscultation Cardiovascular: RRR, no murmur, no edema Gastrointestinal (Abdomen): diffuse pain to tenderness, no guarding, soft. normal bowel sounds. Psychiatric: Orientation: alert and oriented x 3 Results & Data Vital Signs (Past 12 Hours) Vital Signs Temp Pulse Pulse Resp BP Pulse Ox O2 Del Method 01/08/24 08:31 97.7 F 66 17 115/74 94 Room Air 01/08/24 03:38 97.5 F L 67 18 117/76 93 Room Air 01/07/24 22:42 97.9 F 74 18 109/69 95 Room Air 01/07/24 22:03 76 Coding Level of Care Code 91714 IN/OBS CONSULT LVL 4,60M Diagnoses Nausea & vomiting R11.2 Abdominal pain R10.9
[2024-01-08] MEDS: POLYETHYLENE (MIRALAX) 17 GM PACK PO SCH (12:17)
--- NOTE | 2024-01-08 13:08 | Electrocardiogram Report ---
Test Reason : Blood Pressure : / mmHG Vent. Rate : 054 BPM Atrial Rate : 054 BPM P-R Int : 138 ms QRS Dur : 082 ms QT Int : 522 ms P-R-T Axes : 057 056 078 degrees QTc Int : 495 ms Sinus bradycardia with sinus arrhythmia Nonspecific T wave abnormality Abnormal ECG When compared with ECG of 18-OCT-2023 21:12, Vent. rate has decreased BY 32 BPM Nonspecific T wave abnormality, worse in Anterolateral leads Confirmed by Fantasma Arroyo ([id number]) on 01/08/2024 1:08:08 PM Referred By: REFERRED SELF Confirmed By:Fantasma Arroyo
--- NOTE | 2024-01-08 13:19 | XRay Report ---
KUB CLINICAL HISTORY: Generalized abdominal pain. FINDINGS: 2 AP supine abdominal radiographs are compared to abdominal radiographs and CT dated 024. There is a nonobstructed abdominal bowel gas pattern. Cholecystectomy clips are seen in the righ t upper quadrant and suture material projects over the right lower abdomen. No evidence of intraperit hernandez free air is seen on these supine images. There are no abnormal abdominal calcifications. A left pelvic phlebolith is unchanged. The bony structures appear intact. IMPRESSION: No acute abnormality is identified. Electronically signed by: Camron Bazzi M.D. 01/08/2024 1:18 PM
[2024-01-09 06:31] LABS: Hematocrit (blood only) 39.9 % (37.0-47.0); Hemoglobin 13.1 g/dl (12.0-16.0); Mean Corpuscular Hgb Conc 32.8 g/dL (32.0-36.0); Mean Corpuscular Volume 88.5 fL (80.0-100.0); Mean Platelet Volume 9.4 fL (9.4-12.4); Platelet Count 224 K/uL (130-400); RDW Coefficient of Variation 13.6 % (11.5-14.5); RDW Standard Deviation 44.2 fL (36.4-46.3); Red Blood Count 4.51 M/uL (4.20-5.40); White Blood Count 5.82 K/ul (4.8-10.8)
[2024-01-09 06:56] LABS: BUN Creatinine Ratio 13.5 (10-20); Calcium 7.6 mg/dl (8.6-10.3); Creatinine Clr Calc Pharmacy 53.6 ml/min; Est GFR (African American) 53.1 ml/min; Est GFR (Non-African American) 45.8 ml/min; Magnesium 1.2 mg/dl (1.7-2.4); Phosphorus 3.4 mg/dl (2.5-4.9); Potassium 3.9 mmol/L (3.5-5.1)
--- NOTE | 2024-01-09 10:15 | Hospitalist Progress Note ---
Date of Service January 08, 2024 (late entry) Assessment & Plan (1) Nausea & vomiting: (2) Abdominal pain: (3) DIANE (acute kidney injury): (4) Type 2 diabetes mellitus: (5) Diabetes: (6) IBS (irritable bowel syndrome): (7) Hypothyroidism: (8) Depression: Plan: Abdominal Pain Nausea & Vomiting DIANE IBS with gastroparesis - Admit to med surg with tele - Has had several abdominal surgeries in the past including: Colonoscopy and EGD. Hemorrhoidectomy. Laparoscopic excision of lesions for endometriosis. Laparoscopic fulguration of oviducts. Laparoscopic lysis of adhesions. Laparoscopic oophorectomy and salpingectomy. Appendectomy. Laparoscopic cholecystectomy. Total abdominal hysterectomy with removal of tubes. - Pt last colonoscopy was 07/14/23 with internal hemorrhoids, polyps in descending colon. Last EGD was 07/02/23 was normal esophagus, z line regular, stomach normal, duodenum normal. - Cont NSS for hydration while unable to tolerate PO, advance diet to clears as tolerated, antiemetics ordered - KUB abdomen is negative, CT abd normal - Cr. 1.5 on admission, appears her baseline is closer to 1.0 - now Cr improved to 1.15 - KUB repeated this AM negative for SBO - She is using reglan and bentyl at home which she thinks helps normally - will continue, Last BM 3d ago - Pt received MS 4 mg IV x 2 in the ER, can potentially worsen gastroparesis so will only allow small dose 2 mg IV Q8H. - Consulted GI - 53 year old female with past medical history significant for type 2 diabetes, hypothyroidism, COPD, chronic rhinitis, irritable bowel syndrome, history of migraine, depression, tobacco use disorder, chronic narcotic use, presents with nausea, vomiting, abdominal pain for over a year but worse since last week. vomiting has resolved. she also reports constipation. She has had recent EGD and colonoscopy through [facility]. GI consulted for GES, but this can be done as an outpatient. - she can schedule GES as outpatient. - continue with Protonix 40mg once daily. - will start miralax 17gm daily given reported history of constipation. Hypertensive Urgency - likely secondary to pain - monitor BP DM II - Hold metformin - ISS and accuchecks achs - last A1c 5.6 in October 2022 - Pt glucoses have been under 150- she is getting a CGM from her PCP soon - Using lantus 26 U QAM currently, will continue as she is tolerating clears at bedside without difficulty, may consider advancing diet if pain improved Depression - Cont antidepressant medication: duloxetine, gabapentin Hypothyroidism - Cont levothyroxine - TSH to be repeated with am labs, was elevated during last admission Possible UTI - Ua appears dirty - pt denies any urinary symptoms - follow culture - Continue rocephin IV DVT ppx: ambulatory, scds Diet: Clears, advance as tolerated CODE: FULL Dispo: From home, likely to remain in the hospital x 1-2 days Admission and Anticipated Discharge Date Admission Date: January 07, 2024 Subjective Pt seen in follow up of abd. pain, n/v Unfortunately seems chronic and follows up with outpt GI Seen by GI today - recommend bowel regimen - miralax, supportive care, GES study as outpt Currently laying in bed in NAD, drowsy but awakens easily. Says she is feeling a lot better, however asking about increasing her pain medications Currently no fevers chills chest pain shortness of breath Discussed with RN as well Review of Systems Review of Systems: All systems reviewed & are unremarkable except as noted in Subjective Physical Exam Physical Exam: General: WD/WN / obese F in NAD Head: Normocephalic, atraumatic ENT: PERRL, EOMI Chest: Clear to auscultation, on room air, no adventitious breath sounds Cardiac: rrr, no murmur Abdominal: NABS x 4 quadrants, soft, nondistended, +minimally tender to palpation right lower quad, no rebound or guarding Extremities: Normal inspection, no peripheral edema or erythema Psych: worried mood and affect Neuro: AAO x 3, speech slow but fluent, no facial symmetry, moves extremities Results & Data Results & Data Vital Signs (Past 12 Hours) Vital Signs Temp Pulse Pulse Resp BP Pulse Ox O2 Del Method 01/09/24 08:54 36.4 C L 74 17 150/85 H 92 Room Air 01/09/24 07:00 65 01/09/24 02:23 36.5 C 69 18 130/82 94 Room Air 01/08/24 22:44 36.7 C 65 16 124/67 94 Room Air 01/08/24 21:57 73 (7) Hypothyroidism Hypothyroidism type: unspecified Qualified Code(s): E03.9 - Hypothyroidism, unspecified
--- NOTE | 2024-01-09 10:19 | Hospitalist Progress Note ---
Date of Service January 09, 2024 Assessment & Plan (1) Nausea & vomiting: (2) Abdominal pain: (3) DIANE (acute kidney injury): (4) Type 2 diabetes mellitus: (5) Diabetes: (6) IBS (irritable bowel syndrome): (7) Hypothyroidism: (8) Depression: Plan: Abdominal Pain Nausea & Vomiting DIANE IBS with gastroparesis - Admit to med surg with tele - Has had several abdominal surgeries in the past including: Colonoscopy and EGD. Hemorrhoidectomy. Laparoscopic excision of lesions for endometriosis. Laparoscopic fulguration of oviducts. Laparoscopic lysis of adhesions. Laparoscopic oophorectomy and salpingectomy. Appendectomy. Laparoscopic cholecystectomy. Total abdominal hysterectomy with removal of tubes. - Pt last colonoscopy was 07/14/23 with internal hemorrhoids, polyps in descending colon. Last EGD was 07/02/23 was normal esophagus, z line regular, stomach normal, duodenum normal. - Cont NSS for hydration while unable to tolerate PO, advance diet to clears as tolerated, antiemetics ordered - KUB abdomen is negative, CT abd normal - Cr. 1.5 on admission, appears her baseline is closer to 1.0 - now Cr improved to 1.15 - KUB repeated this AM negative for SBO - She is using reglan and bentyl at home which she thinks helps normally - will continue, Last BM 3d ago - Pt received MS 4 mg IV x 2 in the ER, can potentially worsen gastroparesis so will only allow small dose 2 mg IV Q8H. - Consulted GI - 53 year old female with past medical history significant for type 2 diabetes, hypothyroidism, COPD, chronic rhinitis, irritable bowel syndrome, history of migraine, depression, tobacco use disorder, chronic narcotic use, presents with nausea, vomiting, abdominal pain for over a year but worse since last week. vomiting has resolved. she also reports constipation. She has had recent EGD and colonoscopy through [facility]. GI consulted for GES, but this can be done as an outpatient. - she can schedule GES as outpatient. - continue with Protonix 40mg once daily. - start miralax 17gm daily given reported history of constipation. Hypertensive Urgency - likely secondary to pain - started on coreg 3.125 mg bid - monitor BP Hypomagnesemia Mag 1.2 - replete and monitor DM II - Hold metformin - ISS and accuchecks achs - last A1c 5.6 in October 2022 - Pt glucoses have been under 150- she is getting a CGM from her PCP soon Depression - Cont antidepressant medication: duloxetine, gabapentin Hypothyroidism - Cont levothyroxine - TSH 21 - TSH was elevated during previous admissions, now improved - will need further outpt follow up Possible UTI - Ua appears dirty - pt denies any urinary symptoms - urine culture- needs to be repeated - Continue Rocephin IV for now DVT ppx: ambulatory, scds Diet: advance as tolerated CODE: FULL Admission and Anticipated Discharge Date Admission Date: January 07, 2024 Subjective Pt seen in follow up of abd. pain, n/v Unfortunately seems chronic and follows up with outpt GI Seen by GI inpt (yesterday) - recommend bowel regimen - miralax, supportive care, GES study as outpt Currently laying in bed in NAD, drowsy but awakens easily. Says she is feeling somewhat better, but still with abd. discomfort. had small BM this AM Currently no fevers chills chest pain shortness of breath Mag 1.2 - replete and monitor Ucultx - needs repeat Review of Systems Review of Systems: All systems reviewed & are unremarkable except as noted in Subjective Physical Exam Physical Exam: General: WD/WN / obese F in NAD Head: Normocephalic, atraumatic ENT: PERRL, EOMI Chest: Clear to auscultation, on room air, no adventitious breath sounds Cardiac: rrr, no murmur Abdominal: NABS x 4 quadrants, soft, nondistended, +minimally tender to palpation right lower quad, no rebound or guarding Extremities: Normal inspection, no peripheral edema or erythema Psych: worried mood and affect Neuro: AAO x 3, speech slow but fluent, no facial symmetry, moves extremities Results & Data Results & Data Vital Signs (Past 12 Hours) Vital Signs Temp Pulse Pulse Resp BP Pulse Ox O2 Del Method 01/09/24 08:54 36.4 C L 74 17 150/85 H 92 Room Air 01/09/24 07:00 65 01/09/24 02:23 36.5 C 69 18 130/82 94 Room Air 01/08/24 22:44 36.7 C 65 16 124/67 94 Room Air Laboratory Results 01/09/24 01/09/24 01/08/24 Range/Units 08:29 05:56 20:56 WBC 5.82 (4.8-10.8) K/ul RBC 4.51 (4.20-5.40) M/uL Hgb 13.1 (12.0-16.0) g/dl Hct 39.9 (37.0-47.0) % MCV 88.5 (80.0-100.0) fL MCH 29.0 (25.0-34.0) pg MCHC 32.8 (32.0-36.0) g/dL RDW Std Deviation 44.2 (36.4-46.3) fL RDW Coeff of Adolfo 13.6 (11.5-14.5) % Plt Count 224 (130-400) K/uL MPV 9.4 (9.4-12.4) fL Sodium 140 (136-145) mmol/L Potassium 3.9 (3.5-5.1) mmol/L Chloride 106 (98-107) mmol/L Carbon Dioxide 29 (21-32) mmol/L Anion Gap 5 (3-11) BUN 18 (6-23) mg/dl Creatinine 1.33 H (0.6-1.2) mg/dl Est Cr Clr Drug Dosing 53.6 ml/min Est GFR ( Amer) 53.1 ml/min Est GFR (Non-Af Amer) 45.8 ml/min BUN/Creatinine Ratio 13.5 (10-20) Glucose 232 H (70-99(Fasting)) mg/dl POC Glucose 165 H 172 H (70-99) mg/dl Calcium 7.6 L (8.6-10.3) mg/dl Phosphorus 3.4 (2.5-4.9) mg/dl Magnesium 1.2 L (1.7-2.4) mg/dl 24 01/08/24 Range/Units 17:37 11:47 WBC (4.8-10.8) K/ul RBC (4.20-5.40) M/uL Hgb (12.0-16.0) g/dl Hct (37.0-47.0) % MCV (80.0-100.0) fL MCH (25.0-34.0) pg MCHC (32.0-36.0) g/dL RDW Std Deviation (36.4-46.3) fL RDW Coeff of Adolfo (11.5-14.5) % Plt Count (130-400) K/uL MPV (9.4-12.4) fL Sodium (136-145) mmol/L Potassium (3.5-5.1) mmol/L Chloride (98-107) mmol/L Carbon Dioxide (21-32) mmol/L Anion Gap (3-11) BUN (6-23) mg/dl Creatinine (0.6-1.2) mg/dl Est Cr Clr Drug Dosing ml/min Est GFR ( Amer) ml/min Est GFR (Non-Af Amer) ml/min BUN/Creatinine Ratio (10-20) Glucose (70-99(Fasting)) mg/dl POC Glucose 74 98 (70-99) mg/dl Calcium (8.6-10.3) mg/dl Phosphorus (2.5-4.9) mg/dl Magnesium (1.7-2.4) mg/dl Medications Administered Current Inpatient Medications Acetaminophen (Acetaminophen 325 Mg Tab) 650 mg PO Q4H PRN PRN Reason: Moderate Pain (Scale 4, 5, 6) Stop: 02/06/24 17:40 Last Admin: 01/08/24 17:32 Dose: 650 mg Carvedilol (Carvedilol 3.125 Mg Tab) 3.125 mg PO BIDM [facility] Stop: 02/06/24 19:59 Last Admin: 01/09/24 08:46 Dose: 3.125 mg Dextrose (Dextrose 50% 50 Ml Syringe) 25 - 50 ml IV UD PRN; Protocol PRN Reason: Hypoglycemia Protocol Stop: 02/06/24 17:40 Dicyclomine HCl (Dicyclomine Hcl 10 Mg Cap) 10 mg PO TID PRN PRN Reason: abdominal pain Stop: 02/06/24 15:16 Last Admin: 01/09/24 08:46 Dose: 10 mg Docusate Sodium (Docusate Sodium 100 Mg Cap) 100 mg PO BID [facility] Stop: 02/06/24 20:59 Last Admin: 01/09/24 08:46 Dose: 100 mg Duloxetine HCl (Duloxetine Hcl 30 Mg Cap) 30 mg PO QAM [facility] Stop: 02/07/24 08:59 Last Admin: 01/09/24 08:46 Dose: 30 mg Ergocalciferol (Ergocalciferol 1250 Mcg (50,000 Units) Cap) 1,250 mcg PO Ivan@0900 ANTHONY Stop: 02/09/24 08:59 Gabapentin (Gabapentin 300 Mg Cap) 300 mg PO AMHS ANTHONY Stop: 02/06/24 20:59 Last Admin: 01/09/24 08:46 Dose: 300 mg Glucagon (Glucagon For Inj 1 Mg Vial) 1 mg SQ UD PRN; Protocol PRN Reason: Hypoglycemia Protocol Stop: 02/06/24 17:40 Glucose (Glucose 40% Gel 15 Gm Tube) 15 - 30 gm PO UD PRN; Protocol PRN Reason: Hypoglycemia Protocol Stop: 02/06/24 17:40 Glucose (Glucose 10 Tab/Tube) 4 - 8 tab PO UD PRN; Protocol PRN Reason: Hypoglycemia Treatment Stop: 02/06/24 17:40 Ceftriaxone Sodium (Rocephin) 2,000 mg in 50 mls @ 100 mls/hr IV Q24H ANTHONY Stop: 01/12/24 17:59 Last Infusion: 01/08/24 19:43 Dose: Infused Magnesium Sulfate/Dextrose (Magnesium Sulfate / D5w) 1 gm in 100 mls @ 50 mls/hr IV Q2H ANTHONY Stop: 01/09/24 14:14 Sodium Chloride (Nss) 1,000 mls @ 80 mls/hr IV .[id number] [facility] Stop: 02/08/24 10:14 Insulin Aspart (Insulin Aspart Per Unit Charge) 0 units SC ACHS [facility] Stop: 02/06/24 17:59 Last Admin: 01/09/24 08:51 Dose: 5 units Insulin Glargine (Lantus Per Unit Charge) 20 units SQ QAM ANTHONY Stop: 02/07/24 08:59 Last Admin: 01/09/24 08:51 Dose: 20 units Labetalol HCl (Labetalol Hcl Iv 5 Mg/Ml 20ml) 10 mg IV Q6H PRN PRN Reason: Hypertension Stop: 02/06/24 17:40 Levothyroxine Sodium (Levothyroxine Sodium 200 Mcg Tablet) 200 mcg PO DAILYBB [facility] Stop: 02/07/24 06:29 Last Admin: 01/09/24 05:03 Dose: 200 mcg Melatonin (Melatonin 3 Mg Tab) 3 mg PO HS PRN PRN Reason: Sleep Stop: 02/06/24 20:25 Last Admin: 01/08/24 01:29 Dose: 3 mg Metoclopramide HCl (Metoclopramide Hcl 5 Mg Tablet) 5 mg PO TID PRN PRN Reason: nausea and vomiting Stop: 02/06/24 15:16 Miscellaneous (Carbohydrates For Hypoglycemia ) 15 - 30 gm PO UD PRN PRN Reason: Hypoglycemia Protocol Stop: 02/06/24 17:40 Morphine Sulfate (Morphine Sulfate 2 Mg/Ml Carp) 2 mg IV TID PRN PRN Reason: Severe Pain (Scale 7, 8, 9,10) Stop: 01/21/24 19:39 Last Admin: 01/09/24 05:29 Dose: 2 mg Ondansetron HCl (Ondansetron Inj 2 Mg/Ml 2 Ml Vial) 4 mg IV Q4H PRN PRN Reason: Nausea And Vomiting Stop: 02/06/24 17:40 Last Admin: 01/09/24 05:02 Dose: 4 mg Pantoprazole Sodium (Pantoprazole 40 Mg Tab) 40 mg PO DAILYBB [facility] Stop: 02/07/24 06:29 Last Admin: 01/09/24 05:03 Dose: 40 mg Polyethylene Glycol (Polyethylene (Miralax) 17 Gm Pack) 17 gm PO DAILY PRN PRN Reason: constipation Stop: 02/06/24 17:40 Last Admin: 01/08/24 09:18 Dose: 17 gm Polyethylene Glycol (Polyethylene (Miralax) 17 Gm Pack) 17 gm PO DAILY [facility] Stop: 02/07/24 09:44 Last Admin: 01/09/24 08:46 Dose: 17 gm (7) Hypothyroidism Hypothyroidism type: unspecified Qualified Code(s): E03.9 - Hypothyroidism, unspecified
[2024-01-09] MEDS: MAGNESIUM SULFATE / D5W 1 GM/100 ML BAG IV SCH (10:20)
[2024-01-09] MEDS: SODIUM CHLORIDE 0.9% 1,000 ML IV SCH (10:20)
[2024-01-09] MEDS: MAGNESIUM OXIDE 400 MG TAB PO SCH (11:00)
[2024-01-09 16:10] LABS: Appearance Urine Clear (Clear); Bilirubin Urine Negative (Negative); Blood Urine Negative (Negative); Color Urine Yellow; Glucose Urine UA Negative (Negative); Ketones Urine Negative (Negative); Leukocyte Esterase Urine Negative (Negative); Nitrite Urine Negative (Negative); Protein Urine Negative (Negative); Urobilinogen Urine Negative (Negative); pH Urine 5.5 (4.5-7.5)
[2024-01-09] MEDS: LIDOCAINE 5% 1 PATCH TD STA (17:15)
[2024-01-10 06:37] LABS: Hematocrit (blood only) 39.1 % (37.0-47.0); Hemoglobin 12.9 g/dl (12.0-16.0); Mean Corpuscular Hemoglobin 29.4 pg (25.0-34.0); Mean Corpuscular Volume 89.1 fL (80.0-100.0); Mean Platelet Volume 9.8 fL (9.4-12.4); Platelet Count 253 K/uL (130-400); RDW Coefficient of Variation 13.5 % (11.5-14.5); RDW Standard Deviation 44.3 fL (36.4-46.3); Red Blood Count 4.39 M/uL (4.20-5.40); White Blood Count 5.89 K/ul (4.8-10.8)
[2024-01-10 07:16] LABS: BUN Creatinine Ratio 19.6 (10-20); Calcium 7.4 mg/dl (8.6-10.3); Creatinine Clr Calc Pharmacy 60.2 ml/min; Est GFR (African American) 65.4 ml/min; Est GFR (Non-African American) 56.4 ml/min; Magnesium 1.5 mg/dl (1.7-2.4); Phosphorus 2.7 mg/dl (2.5-4.9); Potassium 3.8 mmol/L (3.5-5.1)
--- NOTE | 2024-01-10 07:38 | Hospitalist Progress Note ---
Date of Service January 10, 2024 Assessment & Plan (1) Nausea & vomiting: (2) Abdominal pain: (3) DIANE (acute kidney injury): (4) Type 2 diabetes mellitus: (5) Diabetes: (6) IBS (irritable bowel syndrome): (7) Hypothyroidism: (8) Depression: Plan: Abdominal Pain Nausea & Vomiting DIANE IBS with gastroparesis - Admit to med surg with tele - Has had several abdominal surgeries in the past including: Colonoscopy and EGD. Hemorrhoidectomy. Laparoscopic excision of lesions for endometriosis. Laparoscopic fulguration of oviducts. Laparoscopic lysis of adhesions. Laparoscopic oophorectomy and salpingectomy. Appendectomy. Laparoscopic cholecystectomy. Total abdominal hysterectomy with removal of tubes. - Pt last colonoscopy was 07/14/23 with internal hemorrhoids, polyps in descending colon. Last EGD was 07/02/23 was normal esophagus, z line regular, stomach normal, duodenum normal. - Cont NSS for hydration while unable to tolerate PO, advance diet to clears as tolerated, antiemetics ordered - KUB abdomen is negative, CT abd normal - Cr. 1.5 on admission, appears her baseline is closer to 1.0 - now Cr improved to 1.15 - KUB repeated this AM negative for SBO - She is using reglan and bentyl at home which she thinks helps normally - will continue, Last BM 3d ago - Pt received MS 4 mg IV x 2 in the ER, can potentially worsen gastroparesis so will only allow small dose 2 mg IV Q8H. - Consulted GI - 53 year old female with past medical history significant for type 2 diabetes, hypothyroidism, COPD, chronic rhinitis, irritable bowel syndrome, history of migraine, depression, tobacco use disorder, chronic narcotic use, presents with nausea, vomiting, abdominal pain for over a year but worse since last week. vomiting has resolved. she also reports constipation. She has had recent EGD and colonoscopy through [facility]. GI consulted for GES, but this can be done as an outpatient. - she can schedule GES as outpatient. - continue with Protonix 40mg once daily. - start miralax 17gm daily given reported history of constipation. - Pt had a BM, feeling somewhat better, per RN tolerating diet, not vomiting Hypertensive Urgency - likely secondary to pain - started on coreg 3.125 mg bid - monitor BP Hypomagnesemia Mag 1.2 - replete and monitor DM II - Hold metformin - ISS and accuchecks achs - last A1c 5.6 in October 2022 - Pt glucoses have been under 150 - she is getting a CGM from her PCP soon Depression - Cont antidepressant medication: duloxetine, gabapentin Hypothyroidism - Cont levothyroxine - TSH 21 - TSH was elevated during previous admissions, now improved - will need further outpt follow up Possible UTI - UA concerning for poss. infection/ ?contaminated - urine culture- needed to be repeated, repeat UA negative - Continue Rocephin IV for now DVT ppx: ambulatory, scds Diet: advance as tolerated CODE: FULL Admission and Anticipated Discharge Date Admission Date: January 07, 2024 Subjective Pt seen in follow up of abd. pain, n/v Unfortunately seems chronic and follows up with outpt GI Seen by GI inpt - recommend bowel regimen - miralax, supportive care, GES study as outpt Currently laying in bed in NAD Says she is feeling somewhat better, but still with abd. discomfort. had a BM Currently no fevers chills chest pain shortness of breath Mag 1.2 yesterday and 1.5 today - replete and monitor Ucultx - needed repeat, repeat UA negative Review of Systems Review of Systems: All systems reviewed & are unremarkable except as noted in Subjective Physical Exam Physical Exam: General: WD/WN / obese F in NAD Head: Normocephalic, atraumatic ENT: PERRL, EOMI Chest: Clear to auscultation, on room air, no adventitious breath sounds Cardiac: rrr, no murmur Abdominal: NABS x 4 quadrants, soft, nondistended, +minimally tender to palpation right lower quad, no rebound or guarding Extremities: Normal inspection, no peripheral edema or erythema Psych: worried mood and affect Neuro: AAO x 3, speech slow but fluent, no facial symmetry, moves extremities Results & Data Results & Data Vital Signs (Past 12 Hours) Vital Signs Temp Pulse Pulse Resp BP Pulse Ox O2 Del Method 01/10/24 06:00 71 01/10/24 03:28 36.7 C 78 16 144/90 H 95 Room Air 01/09/24 23:27 73 01/09/24 22:49 36.9 C 71 18 147/81 H 93 Room Air 01/09/24 19:56 36.8 C 70 18 122/88 93 Room Air Laboratory Results 01/10/24 01/09/24 01/09/24 Range/Units 05:38 20:35 17:19 WBC 5.89 (4.8-10.8) K/ul RBC 4.39 (4.20-5.40) M/uL Hgb 12.9 (12.0-16.0) g/dl Hct 39.1 (37.0-47.0) % MCV 89.1 (80.0-100.0) fL MCH 29.4 (25.0-34.0) pg MCHC 33.0 (32.0-36.0) g/dL RDW Std Deviation 44.3 (36.4-46.3) fL RDW Coeff of Adolfo 13.5 (11.5-14.5) % Plt Count 253 (130-400) K/uL MPV 9.8 (9.4-12.4) fL Sodium 141 (136-145) mmol/L Potassium 3.8 (3.5-5.1) mmol/L Chloride 106 (98-107) mmol/L Carbon Dioxide 28 (21-32) mmol/L Anion Gap 7 (3-11) BUN 22 (6-23) mg/dl Creatinine 1.12 (0.6-1.2) mg/dl Est Cr Clr Drug Dosing 60.2 ml/min Est GFR ( Amer) 65.4 ml/min Est GFR (Non-Af Amer) 56.4 ml/min BUN/Creatinine Ratio 19.6 (10-20) Glucose 186 H (70-99(Fasting)) mg/dl POC Glucose 100 H 102 H (70-99) mg/dl Calcium 7.4 L (8.6-10.3) mg/dl Phosphorus 2.7 (2.5-4.9) mg/dl Magnesium 1.5 L (1.7-2.4) mg/dl Urine Color Urine Appearance (Clear) Urine pH (4.5-7.5) Ur Specific [place] (1.000-1.030) Urine Protein (Negative) Urine Glucose (UA) (Negative) Urine Ketones (Negative) Urine Blood (Negative) Urine Nitrite (Negative) Urine Bilirubin (Negative) Urine Urobilinogen (Negative) Ur Leukocyte Esterase (Negative) 01/09/24 01/09/24 01/09/24 Range/Units 15:42 12:37 08:29 WBC (4.8-10.8) K/ul RBC (4.20-5.40) M/uL Hgb (12.0-16.0) g/dl Hct (37.0-47.0) % MCV (80.0-100.0) fL MCH (25.0-34.0) pg MCHC (32.0-36.0) g/dL RDW Std Deviation (36.4-46.3) fL RDW Coeff of Adolfo (11.5-14.5) % Plt Count (130-400) K/uL MPV (9.4-12.4) fL Sodium (136-145) mmol/L Potassium (3.5-5.1) mmol/L Chloride (98-107) mmol/L Carbon Dioxide (21-32) mmol/L Anion Gap (3-11) BUN (6-23) mg/dl Creatinine (0.6-1.2) mg/dl Est Cr Clr Drug Dosing ml/min Est GFR ( Amer) ml/min Est GFR (Non-Af Amer) ml/min BUN/Creatinine Ratio (10-20) Glucose (70-99(Fasting)) mg/dl POC Glucose 113 H 165 H (70-99) mg/dl Calcium (8.6-10.3) mg/dl Phosphorus (2.5-4.9) mg/dl Magnesium (1.7-2.4) mg/dl Urine Color Yellow Urine Appearance Clear (Clear) Urine pH 5.5 (4.5-7.5) Ur Specific [place] 1.010 (1.000-1.030) Urine Protein Negative (Negative) Urine Glucose (UA) Negative (Negative) Urine Ketones Negative (Negative) Urine Blood Negative (Negative) Urine Nitrite Negative (Negative) Urine Bilirubin Negative (Negative) Urine Urobilinogen Negative (Negative) Ur Leukocyte Esterase Negative (Negative) Medications Administered Current Inpatient Medications Acetaminophen (Acetaminophen 325 Mg Tab) 650 mg PO Q4H PRN PRN Reason: Moderate Pain (Scale 4, 5, 6) Stop: 02/06/24 17:40 Last Admin: 01/09/24 16:36 Dose: 650 mg Carvedilol (Carvedilol 3.125 Mg Tab) 3.125 mg PO BIDM [facility] Stop: 02/06/24 19:59 Last Admin: 01/09/24 16:35 Dose: 3.125 mg Dextrose (Dextrose 50% 50 Ml Syringe) 25 - 50 ml IV UD PRN; Protocol PRN Reason: Hypoglycemia Protocol Stop: 02/06/24 17:40 Dicyclomine HCl (Dicyclomine Hcl 10 Mg Cap) 10 mg PO TID PRN PRN Reason: abdominal pain Stop: 02/06/24 15:16 Last Admin: 01/09/24 12:45 Dose: 10 mg Docusate Sodium (Docusate Sodium 100 Mg Cap) 100 mg PO BID [facility] Stop: 02/06/24 20:59 Last Admin: 01/09/24 21:01 Dose: 100 mg Duloxetine HCl (Duloxetine Hcl 30 Mg Cap) 30 mg PO QAM [facility] Stop: 02/07/24 08:59 Last Admin: 01/09/24 08:46 Dose: 30 mg Ergocalciferol (Ergocalciferol 1250 Mcg (50,000 Units) Cap) 1,250 mcg PO Ivan@0900 AN[facility] Stop: 02/09/24 08:59 Gabapentin (Gabapentin 300 Mg Cap) 300 mg PO [facility] Stop: 02/06/24 20:59 Last Admin: 01/09/24 21:01 Dose: 300 mg Glucagon (Glucagon For Inj 1 Mg Vial) 1 mg SQ UD PRN; Protocol PRN Reason: Hypoglycemia Protocol Stop: 02/06/24 17:40 Glucose (Glucose 40% Gel 15 Gm Tube) 15 - 30 gm PO UD PRN; Protocol PRN Reason: Hypoglycemia Protocol Stop: 02/06/24 17:40 Glucose (Glucose 10 Tab/Tube) 4 - 8 tab PO UD PRN; Protocol PRN Reason: Hypoglycemia Treatment Stop: 02/06/24 17:40 Ceftriaxone Sodium (Rocephin) 2,000 mg in 50 mls @ 100 mls/hr IV Q24H [facility] Stop: 01/12/24 17:59 Last Infusion: 01/09/24 18:01 Dose: Infused Sodium Chloride (Nss) 1,000 mls @ 80 mls/hr IV .[id number] [facility] Stop: 02/08/24 10:14 Last Admin: 01/09/24 22:52 Dose: 80 mls/hr Magnesium Sulfate/Dextrose (Magnesium Sulfate / D5w) 1 gm in 100 mls @ 50 mls/hr IV Q2H [facility] Stop: 01/10/24 11:44 Insulin Aspart (Insulin Aspart Per Unit Charge) 0 units SC ACHS [facility] Stop: 02/06/24 17:59 Last Admin: 01/09/24 21:01 Dose: Not Given Insulin Glargine (Lantus Per Unit Charge) 20 units SQ QAM [facility] Stop: 02/07/24 08:59 Last Admin: 01/09/24 08:51 Dose: 20 units Labetalol HCl (Labetalol Hcl Iv 5 Mg/Ml 20ml) 10 mg IV Q6H PRN PRN Reason: Hypertension Stop: 02/06/24 17:40 Levothyroxine Sodium ([facility]othyroxine Sodium 200 Mcg Tablet) [facility]: 02/07/24 06:29 Last Admin: 01/10/24 05:47 Dose: 200 mcg Magnesium Oxide (Magnesium Oxide 400 Mg Tab) 400 mg PO BID [facility] Stop: 02/08/24 10:29 Last Admin: 01/09/24 21:01 Dose: 400 mg Melatonin (Melatonin 3 Mg Tab) 3 mg PO HS PRN PRN Reason: Sleep Stop: 02/06/24 20:25 Last Admin: 01/08/24 01:29 Dose: 3 mg Metoclopramide HCl (Metoclopramide Hcl 5 Mg Tablet) 5 mg PO TID PRN PRN Reason: nausea and vomiting Stop: 02/06/24 15:16 Miscellaneous (Carbohydrates For Hypoglycemia ) 15 - 30 gm PO UD PRN PRN Reason: Hypoglycemia Protocol Stop: 02/06/24 17:40 Morphine Sulfate (Morphine Sulfate 2 Mg/Ml Carp) 2 mg IV TID PRN PRN Reason: Severe Pain (Scale 7, 8, 9,10) Stop: 01/21/24 19:39 Last Admin: 01/10/24 06:33 Dose: 2 mg Ondansetron HCl (Ondansetron Inj 2 Mg/Ml 2 Ml Vial) 4 mg IV Q4H PRN PRN Reason: Nausea And Vomiting Stop: 02/06/24 17:40 Last Admin: 01/09/24 05:02 Dose: 4 mg Pantoprazole Sodium (Pantoprazole 40 Mg Tab) [facility] Stop: 02/07/24 06:29 Last Admin: 01/10/24 05:47 Dose: 40 mg Polyethylene Glycol (Polyethylene (Miralax) 17 Gm Pack) 17 gm PO DAILY PRN PRN Reason: constipation Stop: 02/06/24 17:40 Last Admin: 01/08/24 09:18 Dose: 17 gm Polyethylene Glycol (Polyethylene (Miralax) 17 Gm Pack) 17 gm PO DAILY [facility] Stop: 02/07/24 09:44 Last Admin: 01/09/24 08:46 Dose: 17 gm (7) Hypothyroidism Hypothyroidism type: unspecified Qualified Code(s): E03.9 - Hypothyroidism, unspecified
[2024-01-10] MEDS: ERGOCALCIFEROL 1250 MCG (50,000 UNITS) CAP PO SCH (08:44)
[2024-01-10] MEDS: MAGNESIUM SULFATE / D5W 1 GM/100 ML BAG IV SCH (08:58)
[2024-01-10] MEDS: POLYETHYLENE (MIRALAX) 17 GM PACK PO ONE (14:21)
[2024-01-10] MEDS ORDERED: bisacodyL 10 MG SUPP PR PRN (14:32)
[2024-01-10] MEDS ORDERED: POLYETHYLENE (MIRALAX) 17 GM PACK PO PRN (14:33)
[2024-01-11 05:54] LABS: Hematocrit (blood only) 42.1 % (37.0-47.0); Mean Corpuscular Hemoglobin 29.2 pg (25.0-34.0); Mean Corpuscular Hgb Conc 33.3 g/dL (32.0-36.0); Mean Corpuscular Volume 87.9 fL (80.0-100.0); Mean Platelet Volume 9.5 fL (9.4-12.4); Platelet Count 269 K/uL (130-400); RDW Coefficient of Variation 13.3 % (11.5-14.5); Red Blood Count 4.79 M/uL (4.20-5.40); White Blood Count 6.65 K/ul (4.8-10.8)
[2024-01-11 06:06] LABS: Calcium 8.5 mg/dl (8.6-10.3); Creatinine Clr Calc Pharmacy 64.2 ml/min; Est GFR (African American) 70.7 ml/min; Magnesium 1.8 mg/dl (1.7-2.4); Potassium 4.2 mmol/L (3.5-5.1)
[2024-01-11] MEDS: MAGNESIUM SULFATE / D5W 1 GM/100 ML BAG IV ONE (08:37)
[2024-01-11] MEDS: ENOXAPARIN INJ 40 MG/0.4 ML SYR SQ SCH (08:57)
--- NOTE | 2024-01-11 17:00 | Hospitalist Progress Note ---
Date of Service January 11, 2024 Assessment & Plan (1) Nausea & vomiting: (2) Abdominal pain: (3) DIANE (acute kidney injury): (4) Type 2 diabetes mellitus: (5) Diabetes: (6) IBS (irritable bowel syndrome): (7) Hypothyroidism: (8) Depression: Plan: Abdominal Pain Nausea & Vomiting DIANE IBS with gastroparesis - Admit to med surg with tele - Has had several abdominal surgeries in the past including: Colonoscopy and EGD. Hemorrhoidectomy. Laparoscopic excision of lesions for endometriosis. Laparoscopic fulguration of oviducts. Laparoscopic lysis of adhesions. Laparoscopic oophorectomy and salpingectomy. Appendectomy. Laparoscopic cholecystectomy. Total abdominal hysterectomy with removal of tubes. - Pt last colonoscopy was 07/14/23 with internal hemorrhoids, polyps in descending colon. Last EGD was 07/02/23 was normal esophagus, z line regular, stomach normal, duodenum normal. - Cont NSS for hydration while unable to tolerate PO, advance diet to clears as tolerated, antiemetics ordered - KUB abdomen is negative, CT abd normal - Cr. 1.5 on admission, appears her baseline is closer to 1.0 - now Cr improved to 1.15 - KUB repeated this AM negative for SBO - She is using reglan and bentyl at home which she thinks helps normally - will continue, Last BM 3d ago - Pt received MS 4 mg IV x 2 in the ER, can potentially worsen gastroparesis so will only allow small dose 2 mg IV Q8H. - Consulted GI - 53 year old female with past medical history significant for type 2 diabetes, hypothyroidism, COPD, chronic rhinitis, irritable bowel syndrome, history of migraine, depression, tobacco use disorder, chronic narcotic use, presents with nausea, vomiting, abdominal pain for over a year but worse since last week. vomiting has resolved. she also reports constipation. She has had recent EGD and colonoscopy through [facility]. GI consulted for GES, but this can be done as an outpatient. - she can schedule GES as outpatient. - continue with Protonix 40mg once daily. - start miralax 17gm daily given reported history of constipation. - Pt had a BM, feeling somewhat better, per RN tolerating diet, not vomiting Hypertensive Urgency - likely secondary to pain - started on coreg 3.125 mg bid - monitor BP Hypomagnesemia Mag 1.2 - replete and monitor DM II - Hold metformin - ISS and accuchecks achs - last A1c 5.6 in October 2022 - Pt glucoses have been under 150 - she is getting a CGM from her PCP soon Depression - Cont antidepressant medication: duloxetine, gabapentin Hypothyroidism - Cont levothyroxine - TSH 21 - TSH was elevated during previous admissions, now improved - will need further outpt follow up Possible UTI - UA concerning for poss. infection/ ?contaminated - urine culture- needed to be repeated, repeat UA negative - will finish course w/Rocephin DVT ppx: ambulatory, scds Diet: advance as tolerated CODE: FULL Admission and Anticipated Discharge Date Admission Date: January 07, 2024 Subjective Pt seen in follow up of abd. pain, n/v Unfortunately seems chronic and follows up with outpt GI Seen by GI inpt - recommend bowel regimen - miralax, supportive care, GES study as outpt Currently laying in bed in NAD Says she is feeling somewhat better, but still with abd. discomfort. had a BM. No more vomiting, tolerating diet Currently no fevers chills chest pain shortness of breath replete Mag Ucultx - needed repeat, repeat UA negative Review of Systems Review of Systems: All systems reviewed & are unremarkable except as noted in Subjective Physical Exam Physical Exam: General: WD/WN / obese F in NAD Head: Normocephalic, atraumatic ENT: PERRL, EOMI Chest: Clear to auscultation, on room air, no adventitious breath sounds Cardiac: rrr, no murmur Abdominal: NABS x 4 quadrants, soft, nondistended, +minimally tender to palpation right lower quad, no rebound or guarding Extremities: Normal inspection, no peripheral edema or erythema Psych: worried mood and affect Neuro: AAO x 3, speech slow but fluent, no facial symmetry, moves extremities Results & Data Results & Data Vital Signs (Past 12 Hours) Vital Signs Temp Pulse Pulse Resp BP BP Pulse Ox 01/11/24 15:47 63 01/11/24 15:08 36.7 C 62 13 139/83 94 01/11/24 11:09 36.5 C 71 14 149/91 H 96 01/11/24 08:15 67 01/11/24 07:29 36.5 C 62 14 156/86 H 93 O2 Del Method 01/11/24 15:47 01/11/24 15:08 Room Air 01/11/24 11:09 Room Air 01/11/24 08:15 01/11/24 07:29 Room Air Laboratory Results 01/11/24 01/11/24 01/11/24 Range/Units 12:00 08:14 05:08 WBC 6.65 (4.8-10.8) K/ul RBC 4.79 (4.20-5.40) M/uL Hgb 14.0 (12.0-16.0) g/dl Hct 42.1 (37.0-47.0) % MCV 87.9 (80.0-100.0) fL MCH 29.2 (25.0-34.0) pg MCHC 33.3 (32.0-36.0) g/dL RDW Std Deviation 43.0 (36.4-46.3) fL RDW Coeff of Adolfo 13.3 (11.5-14.5) % Plt Count 269 (130-400) K/uL MPV 9.5 (9.4-12.4) fL Sodium 138 (136-145) mmol/L Potassium 4.2 (3.5-5.1) mmol/L Chloride 104 (98-107) mmol/L Carbon Dioxide 28 (21-32) mmol/L Anion Gap 6 (3-11) BUN 21 (6-23) mg/dl Creatinine 1.05 (0.6-1.2) mg/dl Est Cr Clr Drug Dosing 64.2 ml/min Est GFR ( Amer) 70.7 ml/min Est GFR (Non-Af Amer) 61.0 ml/min BUN/Creatinine Ratio 20.0 (10-20) Glucose 147 H (70-99(Fasting)) mg/dl POC Glucose 147 H 124 H (70-99) mg/dl Calcium 8.5 L (8.6-10.3) mg/dl Phosphorus 3.0 (2.5-4.9) mg/dl Magnesium 1.8 (1.7-2.4) mg/dl 01/10/24 Range/Units 20:07 WBC (4.8-10.8) K/ul RBC (4.20-5.40) M/uL Hgb (12.0-16.0) g/dl Hct (37.0-47.0) % MCV (80.0-100.0) fL MCH (25.0-34.0) pg MCHC (32.0-36.0) g/dL RDW Std Deviation (36.4-46.3) fL RDW Coeff of Adolfo (11.5-14.5) % Plt Count (130-400) K/uL MPV (9.4-12.4) fL Sodium (136-145) mmol/L Potassium (3.5-5.1) mmol/L Chloride (98-107) mmol/L Carbon Dioxide (21-32) mmol/L Anion Gap (3-11) BUN (6-23) mg/dl Creatinine (0.6-1.2) mg/dl Est Cr Clr Drug Dosing ml/min Est GFR ( Amer) ml/min Est GFR (Non-Af Amer) ml/min BUN/Creatinine Ratio (10-20) Glucose (70-99(Fasting)) mg/dl POC Glucose 83 (70-99) mg/dl Calcium (8.6-10.3) mg/dl Phosphorus (2.5-4.9) mg/dl Magnesium (1.7-2.4) mg/dl Medications Administered Current Inpatient Medications Acetaminophen (Acetaminophen 325 Mg Tab) 650 mg PO Q4H PRN PRN Reason: Moderate Pain (Scale 4, 5, 6) Stop: 02/06/24 17:40 Last Admin: 01/09/24 16:36 Dose: 650 mg Bisacodyl (Bisacodyl 10 Mg Supp) 10 mg NE DAILY PRN PRN Reason: Constipation Stop: 02/09/24 14:31 Carvedilol (Carvedilol 3.125 Mg Tab) 3.125 mg PO BIDM [facility] Stop: 02/06/24 19:59 Last Admin: 01/11/24 16:36 Dose: 3.125 mg Dextrose (Dextrose 50% 50 Ml Syringe) 25 - 50 ml IV UD PRN; Protocol PRN Reason: Hypoglycemia Protocol Stop: 02/06/24 17:40 Dicyclomine HCl (Dicyclomine Hcl 10 Mg Cap) 10 mg PO TID PRN PRN Reason: abdominal pain Stop: 02/06/24 15:16 Last Admin: 01/09/24 12:45 Dose: 10 mg Docusate Sodium (Docusate Sodium 100 Mg Cap) 100 mg PO BID [facility] Stop: 02/06/24 20:59 Last Admin: 01/11/24 07:46 Dose: 100 mg Duloxetine HCl (Duloxetine Hcl 30 Mg Cap) 30 mg PO QAM [facility] Stop: 02/07/24 08:59 Last Admin: 01/11/24 07:46 Dose: 30 mg Enoxaparin Sodium (Enoxaparin Inj 40 Mg/0.4 Ml Syr) 40 mg SQ QAM [facility] Stop: 02/10/24 08:59 Last Admin: 01/11/24 08:57 Dose: 40 mg Ergocalciferol (Ergocalciferol 1250 Mcg (50,000 Units) Cap) 1,250 mcg PO Ivan@0900 ANTHONY Stop: 02/09/24 08:59 Last Admin: 01/10/24 08:44 Dose: 1,250 mcg Gabapentin (Gabapentin 300 Mg Cap) 300 mg PO AMHS [facility] Stop: 02/06/24 20:59 Last Admin: 01/11/24 07:46 Dose: 300 mg Glucagon (Glucagon For Inj 1 Mg Vial) 1 mg SQ UD PRN; Protocol PRN Reason: Hypoglycemia Protocol Stop: 02/06/24 17:40 Glucose (Glucose 40% Gel 15 Gm Tube) 15 - 30 gm PO UD PRN; Protocol PRN Reason: Hypoglycemia Protocol Stop: 02/06/24 17:40 Glucose (Glucose 10 Tab/Tube) 4 - 8 tab PO UD PRN; Protocol PRN Reason: Hypoglycemia Treatment Stop: 02/06/24 17:40 Ceftriaxone Sodium (Rocephin) 2,000 mg in 50 mls @ 100 mls/hr IV Q24H [facility] Stop: 01/12/24 17:59 Last Admin: 01/11/24 16:44 Dose: 100 mls/hr Sodium Chloride (Nss) 1,000 mls @ 80 mls/hr IV .[id number] [facility] Stop: 02/08/24 10:14 Last Infusion: 01/10/24 09:29 Dose: Infused Insulin Aspart (Insulin Aspart Per Unit Charge) 0 units SC ACHS [facility] Stop: 02/06/24 17:59 Last Admin: 01/11/24 13:19 Dose: 4 units Insulin Glargine (Lantus Per Unit Charge) 20 units SQ QAM [facility] Stop: 02/07/24 08:59 Last Admin: 01/11/24 08:37 Dose: 20 units Labetalol HCl (Labetalol Hcl Iv 5 Mg/Ml 20ml) 10 mg IV Q6H PRN PRN Reason: Hypertension Stop: 02/06/24 17:40 Levothyroxine Sodium (Levothyroxine Sodium 200 Mcg Tablet) 200 mcg PO DAILYBB [facility] Stop: 02/07/24 06:29 Last Admin: 01/11/24 05:59 Dose: 200 mcg Magnesium Oxide (Magnesium Oxide 400 Mg Tab) 400 mg PO BID [facility] Stop: 02/08/24 10:29 Last Admin: 01/11/24 07:46 Dose: 400 mg Melatonin (Melatonin 3 Mg Tab) 3 mg PO HS PRN PRN Reason: Sleep Stop: 02/06/24 20:25 Last Admin: 01/08/24 01:29 Dose: 3 mg Metoclopramide HCl (Metoclopramide Hcl 5 Mg Tablet) 5 mg PO TID PRN PRN Reason: nausea and vomiting Stop: 02/06/24 15:16 Miscellaneous (Carbohydrates For Hypoglycemia ) 15 - 30 gm PO UD PRN PRN Reason: Hypoglycemia Protocol Stop: 02/06/24 17:40 Morphine Sulfate (Morphine Sulfate 2 Mg/Ml Carp) 2 mg IV TID PRN PRN Reason: Severe Pain (Scale 7, 8, 9,10) Stop: 01/21/24 19:39 Last Admin: 01/11/24 14:53 Dose: 2 mg Ondansetron HCl (Ondansetron Inj 2 Mg/Ml 2 Ml Vial) 4 mg IV Q4H PRN PRN Reason: Nausea And Vomiting Stop: 02/06/24 17:40 Last Admin: 01/09/24 05:02 Dose: 4 mg Pantoprazole Sodium (Pantoprazole 40 Mg Tab) 40 mg PO DAILYBB [facility] Stop: 02/07/24 06:29 Last Admin: 01/11/24 05:59 Dose: 40 mg Polyethylene Glycol (Polyethylene (Miralax) 17 Gm Pack) 17 gm PO DAILY [facility] Stop: 02/07/24 09:44 Last Admin: 01/11/24 07:46 Dose: 17 gm Polyethylene Glycol (Polyethylene (Miralax) 17 Gm Pack) 17 gm PO DAILY PRN PRN Reason: Constipation Stop: 02/09/24 14:32 (7) Hypothyroidism Hypothyroidism type: unspecified Qualified Code(s): E03.9 - Hypothyroidism, unspecified
[2024-01-11 20:15] LABS: Appearance Urine Clear (Clear); Bacteria Urine Automated None Seen (None Seen); Bilirubin Urine Negative (Negative); Blood Urine Negative (Negative); Cast Urine Automated 0-2 /lpf (0-2); Color Urine Yellow; Glucose Urine UA Negative (Negative); Ketones Urine Negative (Negative); Leukocyte Esterase Urine 2+ (Negative); Nitrite Urine Negative (Negative); Protein Urine Negative (Negative); Specific Gravity Urine 1.018 (1.000-1.030); Urobilinogen Urine Negative (Negative)
[2024-01-12 11:52] LABS: Amphetamine Urine, Confirm 1721 ng/mL (<250); MDA negative; MDEA negative; MDMA (Ecstasy) Urine, Confirm negative; Methamphetamine, Ur Confirm 6575 ng/mL (<250)
--- NOTE | 2024-01-12 12:44 | Discharge Summary ---
Date of Service January 12, 2024 Admission HPI Per Admitting Provider 53-year-old female with past medical history significant for type 2 diabetes, hypothyroidism, COPD, chronic rhinitis, irritable bowel syndrome, history of migraine, depression, tobacco use disorder, chronic narcotic use, presents with nausea vomiting since last week which stopped in the past 2 days. She is tolerating a liquid diet, but appetite is lower. She also notes continued abdominal pain into her back, and the RLQ, also in the LLQ when she has a bowel movement. Pt has worsening abdominal distension. Her last BM 3 days ago. She denies diarrhea. Normally she goes once daily when she is well. Aggravating f actors include food of any kind, specifically breads and icecream. Pt can tolerate a glass of milk without issues. Her pain is worse in the past 24 hrs. Pt notes having hx of gastroparesis and needed to have gastric outlet study and also could possibly have adhesions in the stomach to be worsening pain. Pt reports having tried bowel regimen at home with mag citrate, enemas, and is having some bowel movements. Denies fever, chills, but admits to having some episodes of sweat this morning. Pt denies dysuria, increased urinary frequency, hematuria. Pt smokes about 1/2 ppd but is trying to cut back. She hasn't smoked in a few days due to feeling poorly. Pt denies alcohol use at all. She denies illicit drug use or marijuana use. Admitted to [facility] 10/19/23 - 10/21/23 with N, V, abd pain. After work up, felt to have viral gastroenteritis and gastroparesis. KUB is negative today. Cr is slightly elevated today. Pain was slightly improved with pain meds but pain again returned in the ER. She was given fluids, antiemetic and morphine sulfate 4 mg Iv x 2 without improvement. Admission Exam Per Admitting Provider General: awake, alert, no apparent distress, + obese white female. BMI 33.5 Head: Normocephalic, atraumatic ENT: PERRL, EOMI, no pharyngeal exudate, mucous membranes moist Chest: Clear to auscultation, on room air, no adventitious breath sounds Cardiac: sinus tachy, no murmur, no JVD, normal peripheral pulses, good capillary refill Abdominal: NABS x 4 quadrants, soft, nondistended, +tender to palpation right lower quad, no rebound or guarding Extremities: Normal inspection, no peripheral edema or erythema, calfs nontender to palpation Psych: worried mood and affect Neuro: AAO x 3, strength intact bilaterally and rated 5/5, no motor deficits, speech is clear, no peripheral sensory deficits Principal Diagnosis DIANE abdominal pain - acute on chronic hypertensive urgency Hypomagnesemia poss. UTI Discharge Exam General: WD/WN / obese F in NAD Head: Normocephalic, atraumatic ENT: PERRL, EOMI Chest: Clear to auscultation, on room air, no adventitious breath sounds Cardiac: rrr, no murmur Abdominal: NABS x 4 quadrants, soft, nondistended, +minimally tender to palpation (improved), no rebound or guarding Extremities: Normal inspection, no peripheral edema or erythema Psych: worried mood and affect Neuro: AAO x 3, speech slow but fluent, no facial symmetry, moves extremities Discharge Data Allergies Allergy/AdvReac Type Severity Reaction Status Date / Time nabumetone Allergy Intermediate swelling Verified 01/07/24 14:01 NSAIDS (Non-Steroidal Allergy Intermediate SWELLING Verified 10/24/23 08:38 Anti-Inflamma acetaminophen AdvReac Intermediate VOMITING, Verified 10/24/23 08:38 RASH--RAISES LIVER ENZYMES Consultations 01/07/24 14:17 ED Decision to Admit Stat 01/07/24 15:31 Consult Gastroenterology Routine Ordered Studies 01/07/24 13:56 CT Abd and Pelvis [CT abd pelvis wo con] Stat FINDINGS: Lower chest: Bibasilar atelectasis versus scarring is seen. Liver: Hepatic steatosis is noted. Gallbladder and biliary tree: Patient is status post cholecystectomy. No intra- or extrahepatic biliary ductal dilation. Pancreas: Unremarkable, no focal lesions. Spleen: Unremarkable. Adrenals: Unremarkable. Kidneys and ureters: Unremarkable. Bladder: Unremarkable. Reproductive organs: Unremarkable. Bowel: Patient is status post appendectomy. Lymph nodes Retroperitoneal: Unremarkable. Pelvic: Unremarkable. Mesenteric: Unremarkable. Peritoneum: Normal. Vessels: Atherosclerotic calcifications are seen. Abdominal wall: Unremarkable. Bones: Unremarkable. IMPRESSION: 1. No acute abnormality and in particular no evidence of hydronephrosis or obstructive stone. 2. Hepatic steatosis. 3. Additional findings as above. Hospital Course (1) Nausea & vomiting: (2) Abdominal pain: (3) DIANE (acute kidney injury): (4) Type 2 diabetes mellitus: (5) Diabetes: (6) IBS (irritable bowel syndrome): (7) Hypothyroidism: (8) Depression: Abdominal Pain Nausea & Vomiting DIANE IBS with gastroparesis - Admit to med surg with tele - Has had several abdominal surgeries in the past including: Colonoscopy and EGD. Hemorrhoidectomy. Laparoscopic excision of lesions for endometriosis. Laparoscopic fulguration of oviducts. Laparoscopic lysis of adhesions. Laparoscopic oophorectomy and salpingectomy. Appendectomy. Laparoscopic cholecystectomy. Total abdominal hysterectomy with removal of tubes. - Pt last colonoscopy was 07/14/23 with internal hemorrhoids, polyps in descending colon. Last EGD was 07/02/23 was normal esophagus, z line regular, stomach normal, duodenum normal. - Cont NSS for hydration while unable to tolerate PO, advance diet to clears as tolerated, antiemetics ordered - KUB abdomen is negative, CT abd normal - Cr. 1.5 on admission, appears her baseline is closer to 1.0 - now Cr improved to 1.15 - KUB repeated this AM negative for SBO - She is using reglan and bentyl at home which she thinks helps normally - will continue, Last BM 3d ago - Pt received MS 4 mg IV x 2 in the ER, can potentially worsen gastroparesis so will only allow small dose 2 mg IV Q8H. - Consulted GI - 53 year old female with past medical history significant for type 2 diabetes, hypothyroidism, COPD, chronic rhinitis, irritable bowel syndrome, history of migraine, depression, tobacco use disorder, chronic narcotic use, presents with nausea, vomiting, abdominal pain for over a year but worse since last week. vomiting has resolved. she also reports constipation. She has had recent EGD and colonoscopy through [facility]. GI consulted for GES, but this can be done as an outpatient. - she can schedule GES as outpatient. - continue with Protonix 40mg once daily. - start miralax 17gm daily given reported history of constipation. - Pt had a BM, feeling better, tolerating diet, not vomiting Hypertensive Urgency - likely secondary to pain - started on coreg 3.125 mg bid - monitor BP Hypomagnesemia Mag 1.2 - replete and monitor - cont. po supplement on discharge DM II - Hold metformin - ISS and accuchecks achs - last A1c 5.6 in October 2022 - Pt glucoses have been under 150 - she is getting a CGM from her PCP soon Depression - Cont antidepressant medication: duloxetine, gabapentin Hypothyroidism - Cont levothyroxine - TSH 21 - TSH was elevated during previous admissions, now improved - will need further outpt follow up Possible UTI - UA concerning for poss. infection/ ?contaminated - urine culture- needed to be repeated, repeat UA negative - finished course w/Rocephin while inpt Total Time Total Time Spent Total Time Spent (In Minutes): 40 Discharge Plan Discharge Items Patient Disposition: Home - Self-Care Reason For Visit: ABDOMINAL COMPLAINTS, HYPERTENSIVE URGENCY, DIANE Discharge Diagnosis: DIANE abdominal pain - acute on chronic hypertensive urgency Hypomagnesemia poss. UTI Activity: Per Instructions section Non-emergency contact: Primary Care Provider and Chefs Call non-emergency contact if: you have any medication questions and your symptoms worsen Follow-up/Referrals: Timoteo Muniz MD [Primary Care Provider] - Diet: Carb Consistent or DM2, Low Fiber and Low Fat Addtl Attending Provider Instructions: Follow up with your primary care physician and access database developer. You should be seen by your primary care doctor within 1 week. You need to follow up on your thyroid function labs. You were also started on blood pressure medication - carvedilol - take is as prescribed and monitor your blood pressure at home if you can. Make sure to take your magnesium supplement as your magnesium level was found low in the hospital. It is important that you have a regular bowel movement - you can use miralax daily. you can also use senna. follow up with your access database developer for further recommendations. Pending Studies at Discharge: No Stand-Alone Forms: [facility], Smoking Cessation Medications and DC Order Prescriptions: New carvedilol 3.125 mg Tablet 3.125 mg PO BID Qty: 30 0RF docusate sodium 100 mg Capsule 100 mg PO BID Qty: 20 0RF oxycodone 5 mg tablet 5 mg PO BID PRN (Reason: pain) Qty: 7 0RF Continued (DME) OneTouch Verio test strips Strip See Rx Instructions .Route Qty: 100 0RF Rx Instructions: As directed. Check blood glucose twice a day omeprazole 40 mg capsule,delayed release(DR/EC) 40 mg PO DAILYBB ondansetron 4 mg tablet,disintegrating 4 mg translingual Q4H PRN (Reason: NAUSEA/VOMITING) Rx Instructions: Q4-6H (DME) OneTouch Verio test strips Strip See Rx Instructions .Route Qty: 100 0RF Rx Instructions: As directed (DME) lancets [OneTouch Delica Plus Lancet] 33 gauge misc See Rx Instructions .Route Qty: 100 0RF Rx Instructions: As directed (DME) pen needle, diabetic [Pen Needle] 32 gauge x 5/32" needle See Rx Instructions .Route Qty: 100 0RF Rx Instructions: As directed levothyroxine 200 mcg tablet 200 mcg PO DAILYBB albuterol sulfate 90 mcg/actuation HFA aerosol inhaler 2 puff INHALATION Q4 PRN (Reason: Shortness Of Breath Or Wheezing) fluticasone propionate 50 mcg/actuation spray,suspension 1 spray INTRANASAL DAILY PRN (Reason: Congestion) metformin 500 mg tablet extended release 24 hr 1,000 mg PO AMPM insulin glargine 100 unit/mL (3 mL) insulin pen 26 unit subcut QAM metoclopramide HCl [Reglan] 5 mg tablet 5 mg PO TID PRN (Reason: nausea and vomiting) Qty: 20 0RF gabapentin 300 mg capsule 300 mg PO AMHS dicyclomine 10 mg Capsule 10 mg PO TID PRN (Reason: abdominal pain) Qty: 20 0RF magnesium chloride [Mag 64] 64 mg tablet,delayed release (DR/EC) 64 mg PO DAILY lorazepam 0.5 mg tablet 0.5 mg PO QAM PRN (Reason: Anxiety) duloxetine 30 mg capsule,delayed release(DR/EC) 30 mg PO QAM cholecalciferol (vitamin D3) 1,250 mcg (50,000 unit) capsule 50,000 unit PO WK Rx Instructions: SUN Discharge Orders: Discharge Order (Routine); Ordered 01/12/24 Ordered By: Juan Jose Griffith/Other Patient Handouts: Managing Type 2 Diabetes Admission Data Admit Date/Time: 01/07/24 14:20 Attending Provider: Juan Jose Mae Admit Provider: Mamadou Desir Primary Care Provider: Timoteo Muniz Other Providers: Mamadou Desir; Yfn Rapp
== END 2024-01-12 13:43 | disposition home or self-care (01) | DRG 74 ==
LOC: ED 08:21 → INTOOBSV 14:20 → 2N 14:20 → SUATTDRO 14:20 → 2N 16:56

== ENCOUNTER 2025-05-24 14:51 | Observation (INO) ==
[2025-05-24 15:22] LABS: Hematocrit (blood only) 37.8 % (37.0-47.0); Hemoglobin 12.4 g/dl (12.0-16.0); Immature Granulocytes # (auto) 0.02 K/uL (0.01-0.20); Immature Granulocytes % (auto) 0.4 %; Mean Corpuscular Hemoglobin 28.8 pg (25.0-34.0); Mean Corpuscular Volume 87.7 fL (80.0-100.0); Platelet Count 237 K/uL (130-400); RDW Standard Deviation 42.5 fL (36.4-46.3); Red Blood Count 4.31 M/uL (4.20-5.40); White Blood Count 5.08 K/ul (4.8-10.8)
--- NOTE | 2025-05-24 15:39 | XRay Report ---
XR chest 1V not portable CLINICAL HISTORY: Chest pain, nonspecific COMPARISON STUDY: 05/23/2025 FINDINGS: Heart size and pulmonary vasculature are normal. No consolidation or pleural effusion. No p neumothorax. IMPRESSION: No acute findings. ACT 112: Negative or not required by law. Electronically signed by: Jose R Waldron M.D. 05/24/2025 3:37 PM
[2025-05-24 15:41] LABS: Alanine Aminotransferase 35.0 U/L (7-52); Albumin Globulin Ratio 1.6 (0.9-2); Albumin Level 4.5 gm/dl (3.4-5.0); Alkaline Phosphatase 76.0 U/L (34-104); Anion Gap 8.0 (3-11); Bilirubin,Total 0.4 mg/dl (0.2-1.0); Blood Urea Nitrogen 20.0 mg/dl (6-23); Calcium 8.9 mg/dl (8.6-10.3); Carbon Dioxide 26.0 mmol/L (21-32); Chloride 105.0 mmol/L (98-107); Creatinine Clr Calc Pharmacy 58.4 ml/min; Globulin 2.9 gm/dl (2.5-4.0); Glucose 298.0 mg/dl (70-99(Fasting)); Potassium 3.9 mmol/L (3.5-5.1); Sodium 139.0 mmol/L (136-145); Total Protein 7.4 gm/dl (6.0-8.3)
[2025-05-24 16:04] LABS: INR 1.0 (0.9-1.1); Partial Thromboplastin Time 28 Seconds (21-31); Prothrombin Time 10.7 Seconds (9.0-12.0)
--- NOTE | 2025-05-24 16:12 | Electrocardiogram Report ---
Test Reason : Blood Pressure : */* mmHG Vent. Rate : 110 BPM Atrial Rate : * BPM P-R Int : * ms QRS Dur : 70 ms QT Int : 476 ms P-R-T Axes : * 43 58 degrees QTcB Int : 644 ms Poor data quality, interpretation may be adversely affected Sinus tachycardia Nonspecific T wave abnormality Abnormal ECG When compared with ECG of 23-May-2025 06:41, Sinus tachycardia has replaced Sinus rhythm Confirmed by Fantasma Arroyo ([id number]) on 05/24/2025 4:12:48 PM Referred By: Confirmed By: Fantasma Arroyo
[2025-05-24] MEDS: PROMETHAZINE 25 MG/51 ML BAG IV STA (16:46)
[2025-05-24] MEDS: OPTIRAY 320 125ml IV ONE (16:56)
--- NOTE | 2025-05-24 17:12 | CT Scan Report ---
Clinical history: Headache and blurred vision Technique: Axial computed tomography images were obtained of the brain after the administration of intravenous contrast according to the CT angiogram protocol Findings: There is calcified plaque within the cavernous and supraclinoid segments of the internal carotid arteries bilaterally No definite stenosis or aneurysm is seen of the anterior, middle, or posterior cerebral artery circulations. There is mild plaque in the distal left vertebral artery without significant stenosis. The basilar artery appears normal Impression: No definite stenosis or aneurysm of the intracranial arteries Electronically signed by Francisco Wallace 05-24-2025 5:12 PM
--- NOTE | 2025-05-24 17:15 | CT Scan Report ---
Clinical history: Headache and blurred vision Technique: Axial computed tomography images were obtained of the brain from the vertex to the skull base without intravenous contrast. Findings: There is no sign of intracranial hemorrhage. There is normal trotter-white matter differentiation with no sign of acute or old infarction. No midline shift or other form of herniation is identified. There is no hydrocephalus. No obvious mass lesion is seen on this noncontrast examination. The visualized portions of the orbits and paranasal sinuses appear unremarkable. The mastoid air cells appear clear Impression: Unremarkable noncontrast CT of the brain Electronically signed by Francisco Wallace 05-24-2025 5:12 PM
--- NOTE | 2025-05-24 17:15 | CT Scan Report ---
Clinical history: Headache and blurred vision Technique: Axial computed tomography images were obtained of the neck after the administration of intravenous contrast according to the CT angiogram protocol Findings: No stenosis is seen of the common carotid arteries bilaterally. The carotid bulbs appear normal. The remainder of the internal carotid arteries appear patent bilaterally. No stenosis of the external carotid arteries is seen The vertebral arteries are patent bilaterally with no significant stenosis seen. There is mild plaque in the distal left vertebral artery. The visualized thoracic aorta appears unremarkable Impression: No definite stenosis of the neck arteries Electronically signed by Francisco Wallace 05-24-2025 5:14 PM
--- NOTE | 2025-05-24 18:05 | Emergency Department Note ---
Impression & Plan Abdominal pain, Chest pain, Vomiting ED Provider Note CHIEF COMPLAINT: lightheaded, double vision, chest pain, abdominal pain HISTORY OF PRESENTING ILLNESS: Patient is a 55yo female who presents to the emergency department today for complaints of lightheadedness, double vision, chest pain, abdominal pain. She was seen here yesterday for the same complaints and had a negative workup and discharged. She reports going home and having multiple falls and just feeling off. She was recently incarcerated. She does report living alone. She is sobbing on exam that there are things wrong with her but no one is able to figure it out. He reports pain at she rates as a 6/10 but states it is everywhere. She is a poor historian and unable to provide a good history. She denies smoking, drug use, alcohol use. She denies any recent travel, recent surgery, recent illness. REVIEW OF SYSTEMS: See HPI for pertinent positives and pertinent negatives. ALLERGIES: See below MEDICATIONS: See below PAST MEDICAL HISTORY: See below PHYSICAL EXAM: VITALS: Vitals are noted on the nurse's note and reviewed by myself. GENERAL: Non toxic, in no acute distress, non-diaphoretic. SKIN: Capillary refill <2 sec. EYES: PERRLA. EOMI. Conjunctivae without injection, sclerae without icterus. NOSE: Patent without discharge. MOUTH: Mucous membranes moist. Uvula midline. Airway patent. NECK: Supple without nuchal rigidity. HEART: Regular rate and rhythm without murmurs gallops or rubs. LUNGS: Clear to auscultation bilaterally without wheezes, rales or rhonchi. No retractions or accessory muscle use. ABDOMEN: Positive bowel sounds x 4. Normal tympanic percussion. Soft, nontender to palpation. MUSCULOSKELETAL: Strength 5/5 in all 4 extremities. No gross musculoskeletal defects. NEURO: Sensation is intact. Ambulatory with a steady gait. Patient was alert and oriented. No focal neurological deficits. DIFFERENTIAL DIAGNOSIS: Differential diagnosis includes appendicitis, diverticulitis, constipation, gastroenteritis, bowel obstruction, cholecystitis, appendicitis, inflammatory bowel disease, renal colic, PUD, biliary pathology, pancreatitis, mesenteric ischemia, aortic pathology, infection, genitourinary, UTI, perforated viscus, among others. ED COURSE AND MEDICAL DECISION MAKING: HISTORY FROM INDEPENDENT HISTORIAN: History was provided by the patient. MONITOR: Continuous front desk monitor: Order was placed for continuous front desk monitor. Patient was placed on the front desk monitor and continuous pulse ox. Patient was noted to be in normal sinus rhythm at an initial rate of 90 bpm per my interpretation. EKG: EKG was interpreted by myself as sinus tachycardia at a rate of 110 bpm. INTERPRETATION OF LABS: I interpreted the labs with full lab results as below in the lab section of this note. Laboratory results pertinent to the emergent complaint are discussed in the MDM section below. The patient was advised to follow up with their PCP and/or specialist(s) for further outpatient monitoring and management of any abnormal results. INTERPRETATION OF IMAGING: Imaging studies were interpreted by myself and read by radiology as per the imaging section of this note. The patient was advised to follow up with their PCP and/or specialist(s) for further outpatient management of any non-emergent abnormal findings. CHRONIC MEDICAL/SOCIAL CONDITIONS AFFECTING CARE: No social concerns were identified as barriers to patients care. EXTERNAL RECORDS REVIEWED: Patient's previous ER visit from 05/23/2025 related to the same complaints. ESCALATION OF CARE CONSIDERED: I considered admission on this patient due to the patient feeling safe at home due to falls and persistent symptoms. CONSULTATIONS: I had a meaningful discussion about this patient with Dr. Morris who agrees with my assessment and the treatment plan. SUMMARY: I examined the patient for complaints of falls, abdominal pain, chest pain. A physical exam and history were performed. Nursing notes, EMR, and medication list were personally reviewed. CBC showed no leukocytosis, anemia, thrombocytopenia. PT/INR and APTT are normal. CMP shows no emergent findings. Patient's glucose is 298. She reports taking Lantus and has a regular insulin but has not taken it as she has not picked up any needles for it. Troponin is 6.6. Patient was given Phenergan 25 mg and morphine 2 mg with improvement in nausea and pain. CTA of the head and neck showed no acute findings. Chest x- ray showed no acute findings. With the patient's abdominal pain he was recommended for a repeat CT scan of the abdomen but the patient declined stating that we will not find anything anyway. On reevaluation the patient she states that she does not feel she is able to go home safely. She is concerned for falling and her persistent symptoms. I did consult with Dr. Real the hospitalist for admission and the patient was accepted. DIAGNOSIS: Abdominal pain, chest pain noncardiac related TREATMENT PLAN/DISCHARGE INSTRUCTIONS: Admit to hospitalist services The chart was completed utilizing [employer] Speech voice recognition software.Grammatical errors, random word insertions, pronoun errors, and incomplete sentences are an occasional consequence of this system due to software limitations, ambient noise, and hardware issues.Any formal questions or concerns about the content, text, or information contained within the body of this dictation should be directly addressed to the physician for clarification. Past Med/Surg History Problem List (Updated 05/24/25 @ 20:23 by Negro Real MD) Diplopia Hyperglycemia Lumbar back pain Chest pain (Acute) Vomiting (Acute) Abdominal pain (Acute) Nausea & vomiting (Acute) DIANE (acute kidney injury) (Acute) Type 2 diabetes mellitus IBS (irritable bowel syndrome) (Chronic) Hypothyroidism (Chronic) Medical History (Updated 05/24/25 @ 20:23 by Negro Real MD) Abdominal pain Diabetes Depression Endometriosis Nausea and vomiting Surgical History (Updated 05/24/25 @ 20:14 by Negro Real MD) H/O: hysterectomy with BSO History of cholecystectomy History of appendectomy H/O hemorrhoidectomy H/O laparoscopy for SBO; had lysis of adhesions H/O wisdom tooth extraction Social History (Updated 05/24/25 @ 20:15 by Negro Real MD) Smoking Status: Current every day smoker Tobacco Type: Cigarettes Cigarettes Per Day: 1/2 pack day; Second Hand Exposure: No; Do You Dip or Chew Tobacco: No; Hx Alcohol Use: No Hx Substance Use: No Preferred Language: Kiswahili Communication Ability: Effective Manager Games Required: No Beliefs That Will Affect Care: None marital status: Single Current Living Situation: Family Current Living Situation Comment: father staying w/ pt and grandson How many Children do You have: 1 Feels Safe at Home: Yes Assistive Devices: None Allergies Allergies Allergy/AdvReac Type Severity Reaction Status Date / Time nabumetone Allergy Intermediate swelling Verified 05/24/25 20:23 NSAIDS (Non-Steroidal Allergy Intermediate SWELLING Verified 05/24/25 20:23 Anti-Inflamma acetaminophen AdvReac Intermediate VOMITING, Verified 05/24/25 20:23 RASH--RAISES LIVER ENZYMES Home Meds Home Medications Medication Instructions Recorded Confirmed insulin glargine 100 unit/mL (3 26 unit subcut HS 07/01/23 05/24/25 mL) subcutaneous pen (Lantus Solostar U-100 Insulin) gabapentin 300 mg capsule 300 mg PO AMHS 10/19/23 05/24/25 duloxetine 30 mg capsule,delayed 30 mg PO QAM 01/07/24 05/24/25 release polyethylene glycol 3350 17 17 g PO DAILY PRN Constipation 08/01/24 05/24/25 gram/dose oral powder (Miralax) acetaminophen 325 mg tablet 650 mg PO TID PRN Pain 05/05/25 05/24/25 (Tylenol) albuterol sulfate 2.5 mg/3 mL 2.5 mg inhalation TID PRN 05/05/25 05/24/25 (0.083 %) solution for nebulization Shortness Of Breath Or Wheezing dicyclomine 10 mg capsule 10 mg PO HS PRN ABD DISCOMFORT 05/05/25 05/24/25 hydroxyzine pamoate 50 mg capsule See Rx Instructions .Route .COMPLEX 05/05/25 05/24/25 levothyroxine 137 mcg tablet 137 mcg PO DAILY 05/05/25 05/24/25 omeprazole 20 mg capsule,delayed 20 mg PO DAILY 05/05/25 05/24/25 release phenylephrine HCl 10 mg tablet 10 mg PO BID PRN NEEDED 05/05/25 05/24/25 sumatriptan succinate 50 mg tablet 50 mg PO DIRECTED PRN MIGRAINE 05/05/25 05/24/25 (Imitrex) HEADACHES promethazine 25 mg tablet 25 mg PO TID PRN NAUSEA/VOMITING 05/24/25 05/24/25 Previous Rx's Medication Instructions Recorded blood sugar diagnostic (OneTouch #100 ea 12/01/22 Verio test strips) blood sugar diagnostic (OneTouch #100 ea 04/29/23 Verio test strips) lancets 33 gauge (OneTouch Delica #100 ea 04/29/23 Plus Lancet) pen needle, diabetic 32 gauge x #100 ea 04/29/23" (Pen Needle) ondansetron 4 mg disintegrating 4 mg PO Q8H PRN nausea and 05/23/25 tablet vomiting 5 days #15 tabs Results & Data (ED) Vital Signs Vital Signs - 24 hr 05/24/25 14:58 05/24/25 15:01 05/24/25 16:58 Temperature 36.9 C Temperature Source Temporal Artery Scan Pulse Rate 113 H 104 H 94 H Pulse Rate from SpO2 Sensor Respiratory Rate 18 24 Respiratory Effort / Characteristics Non-Labored Spontaneous Respiratory Depth Normal Respiratory Pattern Regular Blood Pressure 186/101 H Blood Pressure Mean 129 Pulse Oximetry 97 97 Oxygen Delivery Method Room Air Room Air Sepsis Recent Fever Within 48 Hours No Sepsis New/Unexplained Change in Mental Status N/A Sepsis Action Taken by Nursing No Action Required 05/24/25 17:00 05/24/25 17:30 05/24/25 18:30 Temperature Temperature Source Pulse Rate 95 H 97 H 98 H Pulse Rate from SpO2 Sensor 95 H 97 H Respiratory Rate 24 15 22 Respiratory Effort / Characteristics Respiratory Depth Respiratory Pattern Blood Pressure 175/102 H 159/99 H 152/92 H Blood Pressure Mean 126 119 113 Pulse Oximetry 95 97 96 Oxygen Delivery Method Sepsis Recent Fever Within 48 Hours Sepsis New/Unexplained Change in Mental Status Sepsis Action Taken by Nursing 05/24/25 18:57 05/24/25 19:00 05/24/25 20:03 Temperature Temperature Source Pulse Rate 98 H Pulse Rate from SpO2 Sensor 100 H 88 Respiratory Rate 20 Respiratory Effort / Characteristics Respiratory Depth Respiratory Pattern Blood Pressure 152/101 H Blood Pressure Mean 118 Pulse Oximetry 96 97 95 Oxygen Delivery Method Room Air Room Air Sepsis Recent Fever Within 48 Hours Sepsis New/Unexplained Change in Mental Status Sepsis Action Taken by Nursing 05/24/25 20:30 05/24/25 21:18 Temperature Temperature Source Pulse Rate 94 H Pulse Rate from SpO2 Sensor Respiratory Rate 16 Respiratory Effort / Characteristics Respiratory Depth Respiratory Pattern Blood Pressure 152/93 H Blood Pressure Mean 122 Pulse Oximetry 96 Oxygen Delivery Method Room Air Room Air Sepsis Recent Fever Within 48 Hours Sepsis New/Unexplained Change in Mental Status Sepsis Action Taken by Nursing Laboratory Data 05/24/25 15:10 05/24/25 15:10 Lab Results 05/24/25 05/24/25 05/24/25 Range/Units 15:10 19:28 20:00 WBC 5.08 (4.8-10.8) K/ul RBC 4.31 (4.20-5.40) M/uL Hgb 12.4 (12.0-16.0) g/dl Hct 37.8 (37.0-47.0) % MCV 87.7 (80.0-100.0) fL MCH 28.8 (25.0-34.0) pg MCHC 32.8 (32.0-36.0) g/dL RDW Std Deviation 42.5 (36.4-46.3) fL RDW Coeff of Adolfo 13.2 (11.5-14.5) % Plt Count 237 (130-400) K/uL MPV 9.3 L (9.4-12.4) fL Immature Gran % (Auto) 0.4 % Neut % (Auto) 68.0 % Lymph % (Auto) 21.7 % Thurston % (Auto) 6.3 % Eos % (Auto) 2.2 % Baso % (Auto) 1.4 % Neut # (Auto) 3.46 (1.40-6.50) K/uL Lymph # (Auto) 1.10 L (1.20-3.40) K/uL Thurston # (Auto) 0.32 (0.11-0.59) K/uL Eos # (Auto) 0.11 (0.00-0.50) K/uL Baso # (Auto) 0.07 (0.00-0.20) K/uL Immature Gran # (Auto) 0.02 (0.01-0.20) K/uL ESR 27 (0-30) mm/hr PT 10.7 (9.0-12.0) Seconds INR 1.0 (0.9-1.1) APTT 28 (21-31) Seconds PTT Ratio 1.0 Sodium 139 (136-145) mmol/L Potassium 3.9 (3.5-5.1) mmol/L Chloride 105 (98-107) mmol/L Carbon Dioxide 26 (21-32) mmol/L Anion Gap 8 (3-11) BUN 20 (6-23) mg/dl Creatinine 1.19 (0.6-1.2) mg/dl Est Cr Clr Drug Dosing 58.4 ml/min eGFR 54.34 BUN/Creatinine Ratio 16.8 (10-20) Glucose 298 H (70-99(Fasting)) mg/dl Calcium 8.9 (8.6-10.3) mg/dl Total Bilirubin 0.4 (0.2-1.0) mg/dl AST 25 (13-39) U/L ALT 35 (7-52) U/L Alkaline Phosphatase 76 (34-104) U/L Troponin I High Sens 6.6 (0-14) pg/ml Total Protein 7.4 (6.0-8.3) gm/dl Albumin 4.5 (3.4-5.0) gm/dl Globulin 2.9 (2.5-4.0) gm/dl Albumin/Globulin Ratio 1.6 (0.9-2) TSH 20.384 H (0.300-4.500) uIu/ml Urine Opiates Screen Neg (Neg) Ur Methadone, Qual Neg (Neg) Urine Fentanyl Screen Neg (Neg) Urine Barbiturates Neg (Neg) Ur Phencyclidine (PCP) Neg (Neg) U Amphetamin/Meth Scrn Pos H (Neg) MDMA (Ecstasy) Screen Neg (Neg) U Benzodiazepines Scrn Neg (Neg) Ur Cocaine Metabolite Neg (Neg) U Marijuana (THC) Screen Neg (Neg) Adenovirus (PCR) Not Detected (NotDetected) B. pertussis DNA (PCR) Not Detected (NotDetected) B.parapertussis DNA PCR Not Detected (NotDetected) C. pneumoniae DNA (PCR) Not Detected (NotDetected) Coronavirus OC43 (PCR) Not Detected (NotDetected) Coronavirus HKU1 (PCR) Not Detected (NotDetected) Coronavirus 229E (PCR) Not Detected (NotDetected) SARS-CoV-2 (PCR) Not Detected (NotDetected) Coronavirus NL63 (PCR) Not Detected (NotDetected) Human Metapneumovir PCR Not Detected (NotDetected) Influenza Type A (PCR) Not Detected (NotDetected) Influenza Type B (PCR) Not Detected (NotDetected) M. pneumoniae (PCR) Not Detected (NotDetected) Parainfluenza 1 (PCR) Not Detected (NotDetected) Parainfluenza 2 (PCR) Not Detected (NotDetected) Parainfluenza 3 (PCR) Not Detected (NotDetected) Parainfluenza 4 (PCR) Not Detected (NotDetected) RSV (PCR) Not Detected (NotDetected) Entero/Rhino (PCR) Not Detected (NotDetected) 05/24/25 Range/Units 20:43 WBC (4.8-10.8) K/ul RBC (4.20-5.40) M/uL Hgb (12.0-16.0) g/dl Hct (37.0-47.0) % MCV (80.0-100.0) fL MCH (25.0-34.0) pg MCHC (32.0-36.0) g/dL RDW Std Deviation (36.4-46.3) fL RDW Coeff of Adolfo (11.5-14.5) % Plt Count (130-400) K/uL MPV (9.4-12.4) fL Immature Gran % (Auto) % Neut % (Auto) % Lymph % (Auto) % Thurston % (Auto) % Eos % (Auto) % Baso % (Auto) % Neut # (Auto) (1.40-6.50) K/uL Lymph # (Auto) (1.20-3.40) K/uL Thurston # (Auto) (0.11-0.59) K/uL Eos # (Auto) (0.00-0.50) K/uL Baso # (Auto) (0.00-0.20) K/uL Immature Gran # (Auto) (0.01-0.20) K/uL ESR (0-30) mm/hr PT (9.0-12.0) Seconds INR (0.9-1.1) APTT (21-31) Seconds PTT Ratio Sodium (136-145) mmol/L Potassium (3.5-5.1) mmol/L Chloride (98-107) mmol/L Carbon Dioxide (21-32) mmol/L Anion Gap (3-11) BUN (6-23) mg/dl Creatinine (0.6-1.2) mg/dl Est Cr Clr Drug Dosing ml/min eGFR BUN/Creatinine Ratio (10-20) Glucose (70-99(Fasting)) mg/dl Calcium (8.6-10.3) mg/dl Total Bilirubin (0.2-1.0) mg/dl AST (13-39) U/L ALT (7-52) U/L Alkaline Phosphatase (34-104) U/L Troponin I High Sens 6.1 (0-14) pg/ml Total Protein (6.0-8.3) gm/dl Albumin (3.4-5.0) gm/dl Globulin (2.5-4.0) gm/dl Albumin/Globulin Ratio (0.9-2) TSH (0.300-4.500) uIu/ml Urine Opiates Screen (Neg) Ur Methadone, Qual (Neg) Urine Fentanyl Screen (Neg) Urine Barbiturates (Neg) Ur Phencyclidine (PCP) (Neg) U Amphetamin/Meth Scrn (Neg) MDMA (Ecstasy) Screen (Neg) U Benzodiazepines Scrn (Neg) Ur Cocaine Metabolite (Neg) U Marijuana (THC) Screen (Neg) Adenovirus (PCR) (NotDetected) B. pertussis DNA (PCR) (NotDetected) B.parapertussis DNA PCR (NotDetected) C. pneumoniae DNA (PCR) (NotDetected) Coronavirus OC43 (PCR) (NotDetected) Coronavirus HKU1 (PCR) (NotDetected) Coronavirus 229E (PCR) (NotDetected) SARS-CoV-2 (PCR) (NotDetected) Coronavirus NL63 (PCR) (NotDetected) Human Metapneumovir PCR (NotDetected) Influenza Type A (PCR) (NotDetected) Influenza Type B (PCR) (NotDetected) M. pneumoniae (PCR) (NotDetected) Parainfluenza 1 (PCR) (NotDetected) Parainfluenza 2 (PCR) (NotDetected) Parainfluenza 3 (PCR) (NotDetected) Parainfluenza 4 (PCR) (NotDetected) RSV (PCR) (NotDetected) Entero/Rhino (PCR) (NotDetected) Administered Medications Discontinued Medications Promethazine HCl (Phenergan) 25 mg in 51 mls @ 204 mls/hr IV NOW STA Stop: 05/24/25 16:44 Last Infusion: 05/24/25 17:01 Dose: Infused Documented By: Admin: 05/24/25 16:46 Dose: 204 mls/hr Documented By: TDM Ioversol (Optiray 320 125ml) 115 ml IV ONCE ONE Stop: 05/24/25 16:57 Last Admin: 05/24/25 16:56 Dose: 115 ml Documented By: JMP Lorazepam (Lorazepam 0.5 Mg Tab) 0.5 mg PO NOW STA Stop: 05/24/25 20:36 Last Admin: 05/24/25 20:39 Dose: 0.5 mg Documented By: LENNY Morphine Sulfate (Morphine Sulfate 2 Mg/Ml Carp) 2 mg IV NOW STA Stop: 05/24/25 18:16 Last Admin: 05/24/25 18:20 Dose: 2 mg Documented By: TDM Imaging Data Radiologist's Impression: Chest X-Ray 05/24/25 15:01 XR chest 1V not portable CLINICAL HISTORY: Chest pain, nonspecific COMPARISON STUDY: 05/23/2025 FINDINGS: Heart size and pulmonary vasculature are normal. No consolidation or pleural effusion. No pneumothorax. IMPRESSION: No acute findings. ACT 112: Negative or not required by law. Electronically signed by: Jose R Waldron M.D. 05/24/2025 3:[address] 05/24/25 16:30 Clinical history: Headache and blurred vision Technique: Axial computed tomography images were obtained of the brain from the vertex to the skull base without intravenous contrast. Findings: There is no sign of intracranial hemorrhage. There is normal trotter-white matter differentiation with no sign of acute or old infarction. No midline shift or other form of herniation is identified. There is no hydrocephalus. No obvious mass lesion is seen on this noncontrast examination. The visualized portions of the orbits and paranasal sinuses appear unremarkable. The mastoid air cells appear clear Impression: Unremarkable noncontrast CT of the brain Electronically signed by Francisco Wallace 05-24-2025 5:12 PM Head CTA 05/24/25 16:30 Clinical history: Headache and blurred vision Technique: Axial computed tomography images were obtained of the brain after the administration of intravenous contrast according to the CT angiogram protocol Findings: There is calcified plaque within the cavernous and supraclinoid segments of the internal carotid arteries bilaterally No definite stenosis or aneurysm is seen of the anterior, middle, or posterior cerebral artery circulations. There is mild plaque in the distal left vertebral artery without significant stenosis. The basilar artery appears normal Impression: No definite stenosis or aneurysm of the intracranial arteries Electronically signed by Francisco Wallace 05-24-2025 5:12 PM Neck CTA 05/24/25 16:30 Clinical history: Headache and blurred vision Technique: Axial computed tomography images were obtained of the neck after the administration of intravenous contrast according to the CT angiogram protocol Findings: No stenosis is seen of the common carotid arteries bilaterally. The carotid bulbs appear normal. The remainder of the internal carotid arteries appear patent bilaterally. No stenosis of the external carotid arteries is seen The vertebral arteries are patent bilaterally with no significant stenosis seen. There is mild plaque in the distal left vertebral artery. The visualized thoracic aorta appears unremarkable Impression: No definite stenosis of the neck arteries Electronically signed by Francisco Wallace 05-24-2025 5:14 PM Discharge Plan Visit Data Chief Complaint: Chest Pain Stated Complaint: STOMACH PAIN ON RT, CHEST PAIN, DOUBLE VISON ED Provider: Fantasma Morris ED Midlevel Provider: Arminda [place] Discharge Problem: Abdominal pain, Chest pain, Vomiting Patient Disposition: Admitted As Inpatient Condition: Good Discharge Instructions Interventions: ED Discharge Assessment Last Done: 05/24/25 21:18
[2025-05-24] MEDS: MoRPHine SULFATE 2 MG/ML CARP IV STA (18:20)
[2025-05-24 19:02] LABS: Thyroid Stimulating Hormone 20.384 uIu/ml (0.300-4.500)
--- NOTE | 2025-05-24 19:09 | History & Physical Report ---
Date of Service May 24, 2025 Assessment & Plan (1) Nausea & vomiting: (2) Abdominal pain: (3) Chest pain: (4) Type 2 diabetes mellitus: (5) Hypothyroidism: (6) Lumbar back pain: (7) Hyperglycemia: (8) Diplopia: Plan 55yo female with history of T2DM, hypothyroidism, GERD, chronic abdominal pain, tobacco dependence, and prior SBO s/p ex lap ([facility]) who presents with numerous complaints including nausea/vomiting/abdominal pain for several days, low back pain for 1-2 days, chest pain yesterday (improved today), right arm discomfort when she had chest pain, dizziness/vertigo, double vision, headache, and simply feeling unwell. She has not been able to eat/drink for several days. #intractable nausea/vomiting/RLQ abd pain - -exact etiology uncertain -GI symptoms 2nd to migraine (she has concurrent migraine headache)? -IBS? -spasm? -other? -CT a/p on 05/23 unremarkable -LFTs, lipase, u/a wnl -of note - she has had 6 CTs of her abdomen since 07/2024 for abdominal pain -she reports having had a colonoscopy within the last few years - showed a few polyps only -she also mentions her providers recommending a gastric emptying study as outpatient? -keep NPO for this evening, then try clears in the am -IV fluids -anti-emetics -bentyl prn -repeat a lipase in the am -consider a KUB to examine stool load -check a sed rate & crp -if she develops diarrhea will send stool for c diff & stool biofire -check a respiratory biofire now -if pain persists consider formal GI consultation while here #chest pain - -EKG w/o ischemic changes -troponin on 05/23 was negative -troponin today negative -will repeat a troponin 1 more time this evening -check echo tomorrow -pain does not sound ischemic in nature -does not fit with pericarditis -could consider CTA study to r/o dissection but low suspicion for such -had negative CTA chest in Apr 2025 -also had negative CTA chest earlier this year -could pain be GI related in light of nausea/emesis? -again, if pains recur, consider GI consultation #lumbar back pain - -paraspinal on right -norco prn pain -low suspicion for infectious process of the l-spine -if pain recurs/persists consider MRI l-spine (last MRI study was 2020 with mild lumbar DJD only) #dizziness/vertigo/diplopia - -dizziness could be explained by volume contraction -double vision/vertigo - 2nd to migraine? -extraocular muscle movements on exam are wnl -given the vast number of various complaints will obtain MRI brain - r/o CVA, tumor, etc. #migraine headache - -obtain MRI brain as noted above -as mentioned under "nausea/vomiting" perhaps her GI symptoms are due to migraine headache? -her BPs are quite elevated - would not use triptan therapy at this time -consider NSAIDs, fioricet, steroids, etc for abortive Rx, if needed -could also trial Nurtec - would need to call this to outside pharmacy since it is non-formulary at [facility] #uncontrolled T2DM - -check a1c in am -increase lantus to 15 units HS -novolog SSI -BSGs ac/hs -suspect blurry vision, dehydration, several other symptoms likely related to hyperglycemia (she admitted to BSGs of 400+ at home) #hypothyroidism - -TSH returned high at 20 -decompensated hypothyroidism could potentially account for some of her symptoms (weight gain, fatigue, simply feeling unwell, etc) -uncertain of compliance with the medicine -would simply resume her synthroid, encourage compliance, and recommend she take such on empty stomach first thing each AM #GERD - -with all the N/V will increase PPI to twice daily dosing #tobacco dependence - -nicoderm patch 14mg/day -juvenile counselor to quit #DVT proph - -if MRI brain is negative for ICH then start lovenox tomorrow with her numerous complaints there does not seem to be a specific solitary diagnosis that would tie together all presenting issues as mentioned above check sed rate & crp check blood cx's given her sweats at night, hot/cold feeling during the daytime, etc. check B12, 25-OH vit D, CPK in am check mag in am previous urine drug screens were + for illicit drugs thus rechecked a UDS today; results pending History of Present Illness Chief Complaint: headache, nausea, vomiting, abd pain, chest pain, back pain Primary Care Provider: Timoteo Muniz MD 55yo female with history of T2DM, hypothyroidism, GERD, chronic abdominal pain, tobacco dependence, and prior SBO s/p ex lap ([facility]) who presents with numerous complaints including nausea/vomiting/abdominal pain for several days, low back pain for 1-2 days, chest pain yesterday (improved today), right arm discomfort when he had chest pain, dizziness/vertigo, double vision, headache, and simply feeling unwell. She has not been able to eat/drink for several days. Was evaluated in our ER yesterday; had negative CT abd/pelvis along with labs (normal) and was ultimately released home. However, upon return home last night, she had dry heaves once again. She reports markedly elevated blood sugars with one as high as 400. She c/o dry mouth. When asked what symptoms are the worst she reports the abdominal pain, chest pain, and the lumbar back pain. The abdominal pain is in the RLQ. During the encounter she asks for pain meds & anti-nausea meds. Allergies Allergy/AdvReac Type Severity Reaction Status Date / Time nabumetone Allergy Intermediate swelling Verified 05/24/25 20:23 NSAIDS (Non-Steroidal Allergy Intermediate SWELLING Verified 05/24/25 20:23 Anti-Inflamma acetaminophen AdvReac Intermediate VOMITING, Verified 05/24/25 20:23 RASH--RAISES LIVER ENZYMES Home Medications Medication Instructions Recorded Confirmed Type blood sugar diagnostic (OneTouch #100 ea 12/01/22 10/19/23 Rx Verio test strips) blood sugar diagnostic (OneTouch #100 ea 04/29/23 10/19/23 Rx Verio test strips) lancets 33 gauge (OneTouch Delica #100 ea 04/29/23 10/19/23 Rx Plus Lancet) pen needle, diabetic 32 gauge x #100 ea 04/29/23 10/19/23 Rx 5/32" (Pen Needle) insulin glargine 100 unit/mL (3 26 unit subcut HS 07/01/23 05/24/25 History mL) subcutaneous pen (Lantus Solostar U-100 Insulin) gabapentin 300 mg capsule 300 mg PO AMHS 10/19/23 05/24/25 History duloxetine 30 mg capsule,delayed 30 mg PO QAM 01/07/24 05/24/25 History release polyethylene glycol 3350 17 17 g PO DAILY PRN Constipation 08/01/24 05/24/25 History gram/dose oral powder (Miralax) acetaminophen 325 mg tablet 650 mg PO TID PRN Pain 05/05/25 05/24/25 History (Tylenol) albuterol sulfate 2.5 mg/3 mL 2.5 mg inhalation TID PRN 05/05/25 05/24/25 History (0.083 %) solution for nebulization Shortness Of Breath Or Wheezing dicyclomine 10 mg capsule 10 mg PO HS PRN ABD DISCOMFORT 05/05/25 05/24/25 History hydroxyzine pamoate 50 mg capsule See Rx Instructions .Route .COMPLEX 05/05/25 05/24/25 History levothyroxine 137 mcg tablet 137 mcg PO DAILY 05/05/25 05/24/25 History omeprazole 20 mg capsule,delayed 20 mg PO DAILY 05/05/25 05/24/25 History release phenylephrine HCl 10 mg tablet 10 mg PO BID PRN NEEDED 05/05/25 05/24/25 History sumatriptan succinate 50 mg tablet 50 mg PO DIRECTED PRN MIGRAINE 05/05/25 05/24/25 History (Imitrex) HEADACHES ondansetron 4 mg disintegrating 4 mg PO Q8H PRN nausea and 05/23/25 05/24/25 Rx tablet vomiting 5 days #15 tabs promethazine 25 mg tablet 25 mg PO TID PRN NAUSEA/VOMITING 05/24/25 05/24/25 History Past Med/Surg History Problem List (Updated 05/24/25 @ 20:23 by Negro Real MD) Diplopia Hyperglycemia Lumbar back pain Chest pain (Acute) Vomiting (Acute) Abdominal pain (Acute) Nausea & vomiting (Acute) DIANE (acute kidney injury) (Acute) Type 2 diabetes mellitus IBS (irritable bowel syndrome) (Chronic) Hypothyroidism (Chronic) Medical History (Updated 05/24/25 @ 20:23 by Negro Real MD) Abdominal pain Diabetes Depression Endometriosis Nausea and vomiting Surgical History (Updated 05/24/25 @ 20:14 by Negro Real MD) H/O: hysterectomy with BSO History of cholecystectomy History of appendectomy H/O hemorrhoidectomy H/O laparoscopy for SBO; had lysis of adhesions H/O wisdom tooth extraction Social History (Updated 05/24/25 @ 20:15 by Negro Real MD) Smoking Status: Current every day smoker Tobacco Type: Cigarettes Cigarettes Per Day: 3; Second Hand Exposure: No; Do You Dip or Chew Tobacco: No; Tobacco Cessation Education Requested by Patient: No Hx Alcohol Use: No Hx Substance Use: No Preferred Language: Azeri Communication Ability: Effective Occupational Therapy Director Required: No Beliefs That Will Affect Care: None marital status: Single Current Living Situation: Alone Current Living Situation Comment: father staying w/ pt and grandson How many Children do You have: 1 Other Information That Helps Us Care for You: No Feels Safe at Home: Yes Safety Concerns: Feels Safe At This Time Assistive Devices: None Review of Systems Review of Systems: gen - no fevers but has had sweats (somewhat chronic); 20 pounds of weight gain last 6+ months eyes - blurry vision, diplopia HENT - +dry mouth; +ear pain; no URI symptoms CV - central chest pain, worse with moving around? palpitations/hearing her heartbeat in her left ear pulm - no cough, no congestion, no dyspnea at rest GI - nausea/vomiting/abd pain; no blood in stool; no melena - no dysuria musculo - no arthralgias, no myalgias skin - no rash endo - high blood sugars neuro - headaches, no focal motor weakness, no paresthesias Physical Exam Physical Exam: gen - tearful at times, comfortable/NAD however; lying in bed; obese eyes - PERRL, EOMI, no nystagmus HENT - TMs retracted b/l, nose clear; MM very dry neck - no JVD, no goiter, no lymph nodes heart - RRR, s1 s2, no murmur lungs - CTA b/l chest - no reproducible chest wall pain to palpation abd - soft ND BS+; no HSM; no peritoneal signs; tender to palpation RLQ ext - no edema, pulses 2+ b/l feet vascular - radial pulses 2+ b/l skin - no rash neuro - strength 5/5 x 4 exts, finger/nose/finger maneuver w/o ataxia, EOMI, DTRs 2+ b/l upper & lower exts psych - a/o x 3, tearful at times back - tender to palpation right paraspinal lumbar region Results & Data Results & Data Vital Signs (Past 12 Hours) Vital Signs Temp Pulse Resp BP Pulse Ox O2 Del Method 05/24/25 18:57 96 Room Air 05/24/25 18:30 98 H 22 152/92 H 96 05/24/25 17:30 97 H 15 159/99 H 97 05/24/25 17:00 95 H 24 175/102 H 95 05/24/25 16:58 94 H 05/24/25 15:01 104 H 24 97 Room Air 05/24/25 14:58 36.9 C 113 H 18 186/101 H 97 Room Air Laboratory Results Laboratory Results - last 24 hr 05/24/25 05/24/25 05/24/25 15:10 19:28 20:00 WBC 5.08 RBC 4.31 Hgb 12.4 Hct 37.8 MCV 87.7 MCH 28.8 MCHC 32.8 RDW Std Deviation 42.5 RDW Coeff of Daolfo 13.2 Plt Count 237 MPV 9.3 L Immature Gran % (Auto) 0.4 Neut % (Auto) 68.0 Lymph % (Auto) 21.7 Candler % (Auto) 6.3 Eos % (Auto) 2.2 Baso % (Auto) 1.4 Neut # (Auto) 3.46 Lymph # (Auto) 1.10 L Candler # (Auto) 0.32 Eos # (Auto) 0.11 Baso # (Auto) 0.07 Immature Gran # (Auto) 0.02 ESR 27 PT 10.7 INR 1.0 APTT 28 PTT Ratio 1.0 Sodium 139 Potassium 3.9 Chloride 105 Carbon Dioxide 26 Anion Gap 8 BUN 20 Creatinine 1.19 Est Cr Clr Drug Dosing 58.4 eGFR 54.34 BUN/Creatinine Ratio 16.8 Glucose 298 H Calcium 8.9 Total Bilirubin 0.4 AST 25 ALT 35 Alkaline Phosphatase 76 Troponin I High Sens 6.6 C-Reactive Protein Pending Total Protein 7.4 Albumin 4.5 Globulin 2.9 Albumin/Globulin Ratio 1.6 TSH 20.384 H Urine Opiates Screen Pending Ur Methadone, Qual Pending Urine Fentanyl Screen Pending Urine Barbiturates Pending Ur Phencyclidine (PCP) Pending U Amphetamin/Meth Scrn Pending MDMA (Ecstasy) Screen Pending U Benzodiazepines Scrn Pending Ur Cocaine Metabolite Pending U Marijuana (THC) Screen Pending Adenovirus (PCR) Pending B. pertussis DNA (PCR) Pending B.parapertussis DNA PCR Pending C. pneumoniae DNA (PCR) Pending Coronavirus OC43 (PCR) Pending Coronavirus HKU1 (PCR) Pending Coronavirus 229E (PCR) Pending SARS-CoV-2 (PCR) Pending Coronavirus NL63 (PCR) Pending Human Metapneumovir PCR Pending Influenza Type B (PCR) Pending M. pneumoniae (PCR) Pending Parainfluenza 1 (PCR) Pending Parainfluenza 2 (PCR) Pending Parainfluenza 3 (PCR) Pending Parainfluenza 4 (PCR) Pending RSV (PCR) Pending Entero/Rhino (PCR) Pending Diagnostic Findings Chest X-Ray 05/24/25 15:01 XR chest 1V not portable CLINICAL HISTORY: Chest pain, nonspecific COMPARISON STUDY: 05/23/2025 FINDINGS: Heart size and pulmonary vasculature are normal. No consolidation or pleural effusion. No pneumothorax. IMPRESSION: No acute findings. ACT 112: Negative or not required by law. Electronically signed by: Jose R Waldron M.D. 05/24/2025 3:[address] 05/24/25 16:30 Clinical history: Headache and blurred vision Technique: Axial computed tomography images were obtained of the brain from the vertex to the skull base without intravenous contrast. Findings: There is no sign of intracranial hemorrhage. There is normal trotter-white matter differentiation with no sign of acute or old infarction. No midline shift or other form of herniation is identified. There is no hydrocephalus. No obvious mass lesion is seen on this noncontrast examination. The visualized portions of the orbits and paranasal sinuses appear unremarkable. The mastoid air cells appear clear Impression: Unremarkable noncontrast CT of the brain Electronically signed by Francisco Wallace 05-24-2025 5:12 PM Head CTA 05/24/25 16:30 Clinical history: Headache and blurred vision Technique: Axial computed tomography images were obtained of the brain after the administration of intravenous contrast according to the CT angiogram protocol Findings: There is calcified plaque within the cavernous and supraclinoid segments of the internal carotid arteries bilaterally No definite stenosis or aneurysm is seen of the anterior, middle, or posterior cerebral artery circulations. There is mild plaque in the distal left vertebral artery without significant stenosis. The basilar artery appears normal Impression: No definite stenosis or aneurysm of the intracranial arteries Electronically signed by Francisco Wallace 05-24-2025 5:12 PM Neck CTA 05/24/25 16:30 Clinical history: Headache and blurred vision Technique: Axial computed tomography images were obtained of the neck after the administration of intravenous contrast according to the CT angiogram protocol Findings: No stenosis is seen of the common carotid arteries bilaterally. The carotid bulbs appear normal. The remainder of the internal carotid arteries appear patent bilaterally. No stenosis of the external carotid arteries is seen The vertebral arteries are patent bilaterally with no significant stenosis seen. There is mild plaque in the distal left vertebral artery. The visualized thoracic aorta appears unremarkable Impression: No definite stenosis of the neck arteries Electronically signed by Francisco Wallace 05-24-2025 5:14 PM ECG Additional Comments: EKG - my reading - sinus tach, ST flattening anterior leads Code Status & VTE Plan Code Status full PG Care Time/CCT Total # of Minutes Spent Total Time Spent with Patient: Total time spent is greater than 50% in coordination of care (as documented) at patient's floor/unit and/or counseling patient: Coding Level of Care Code 88898 INT INP/OBS CARE 3/75MIN Diagnoses Nausea & vomiting R11.2 Vomiting type: unspecified Abdominal pain R10.9 Chest pain R07.9 Type 2 diabetes mellitus E11.9 Hypothyroidism E03.9 Hypothyroidism type: unspecified Lumbar back pain M54.50 Hyperglycemia R73.9 Diplopia H53.2 (1) Nausea & vomiting Vomiting type: unspecified Qualified Code(s): R11.2 - Nausea with vomiting, unspecified (5) Hypothyroidism Hypothyroidism type: unspecified Qualified Code(s): E03.9 - Hypothyroidism, unspecified
[2025-05-24 20:21] LABS: Amphetamines+Metham, Urine Pos (Neg); MDMA (Ecstacy), Urine Neg (Neg); Marijuana, Urine Neg (Neg)
[2025-05-24] MEDS: LORazepam 0.5 MG TAB PO STA (20:39)
[2025-05-24 21:15] LABS: Chlamydia pneumoniae PCR Not Detected (NotDetected); Coronavirus 229E PCR Not Detected (NotDetected); Coronavirus CoV-2 (COVID19)PCR Not Detected (NotDetected); Coronavirus HKU1 PCR Not Detected (NotDetected); Coronavirus NL63 PCR Not Detected (NotDetected); Coronavirus OC43PCR Not Detected (NotDetected); Human Metapneumovirus PCR Not Detected (NotDetected); Parainfluenza Virus 1 PCR Not Detected (NotDetected); Parainfluenza Virus 2 PCR Not Detected (NotDetected); Parainfluenza Virus 3 PCR Not Detected (NotDetected); Parainfluenza Virus 4 PCR Not Detected (NotDetected); Respiratory Syncytial VirusPCR Not Detected (NotDetected); Rhinovirus/Enterovirus PCR Not Detected (NotDetected)
[2025-05-24] MEDS ORDERED: ACETAMINOPHEN 325 MG TAB PO PRN (21:39)
[2025-05-24] MEDS ORDERED: ALBUTEROL 0.083% NEBU SOLN 3 ML VIAL INH PRN (21:39)
[2025-05-24] MEDS ORDERED: MELATONIN 3 MG TAB PO PRN (21:39)
[2025-05-24] MEDS ORDERED: GLUCOSE 40% GEL 15 GM TUBE PO PRN (22:00)
[2025-05-24] MEDS ORDERED: DEXTROSE 50% 50 ML SYRINGE IV PRN (22:00)
[2025-05-24] MEDS ORDERED: GLUCAGON FOR INJ 1 MG VIAL SQ PRN (22:00)
[2025-05-24] MEDS ORDERED: CARBOHYDRATES FOR HYPOGLYCEMIA PO PRN (22:00)
[2025-05-24] MEDS ORDERED: GLUCOSE 10 TAB/TUBE PO PRN (22:00)
[2025-05-24] MEDS: INSULIN ASPART PER UNIT CHARGE SC SCH (22:01)
[2025-05-24] MEDS: PANTOprazole 40 MG/10 ML SYR IV SCH (22:11)
[2025-05-24] MEDS: NSS + 20MEQ KCL 20 MEQ/1,000 ML BAG IV SCH (22:11)
[2025-05-24] MEDS: ONDANSETRON INJ 2 MG/ML 2 ML VIAL IV PRN (22:11)
[2025-05-24] MEDS: GABAPENTIN 300 MG CAP PO SCH (22:12)
--- NOTE | 2025-05-24 22:12 | Magnetic Resonance Report ---
Exam(s): MRI HEAD Without Contrast EXAM: MR Head Without Intravenous Contrast CLINICAL HISTORY: Reason for exam: headaches, dizzy, weak. OTHER: Other Notes: headaches, dizziness, weakness, double vision, multiple falls, PT claustrophobic, scanned with 48 channel head coil and washcloth over eyes, PT was given Ativan before scan TECHNIQUE: Magnetic resonance images of the head/brain without intravenous contrast in multiple planes. COMPARISON: Prior head CT from May 24, 2025 and brain MRI from December 16, 2011. FINDINGS: Brain: There are mild nonspecific white matter changes. No mass. No hemorrhage. No acute infarct. The flow voids at the base the brain are intact. Cerebellar tonsillar ectopia. Ventricles: Unremarkable. No ventriculomegaly. Bones/joints: Unremarkable. No acute fracture. Sinuses: Unremarkable as visualized. No acute sinusitis. Mastoid air cells: Unremarkable as visualized. No mastoid effusion. Orbits: Unremarkable as visualized. IMPRESSION: No evidence of acute intracranial pathology. Electronically signed by: Kristin Phillips MD 05/24/25 22:11 PM
[2025-05-24] MEDS: NICOTINE 14 MG/24 HR PATCH TD SCH (22:13)
[2025-05-24] MEDS: LANTUS PER UNIT CHARGE SQ SCH (22:55)
[2025-05-25] MEDS: LEVOTHYROXINE SODIUM 137 MCG TABLET PO SCH (06:14)
[2025-05-25 07:36] LABS: Anion Gap 6.0 (3-11); Blood Urea Nitrogen 15.0 mg/dl (6-23); Calcium 8.1 mg/dl (8.6-10.3); Carbon Dioxide 29.0 mmol/L (21-32); Chloride 107.0 mmol/L (98-107); Creatine Kinase 132.0 U/L (26-192); Creatinine Clr Calc Pharmacy 84.3 ml/min; Glucose 130.0 mg/dl (70-99(Fasting)); Lipase 17.0 U/L (11-82); Magnesium 1.2 mg/dl (1.7-2.4); Potassium 3.5 mmol/L (3.5-5.1); Sodium 142.0 mmol/L (136-145)
[2025-05-25 08:03] LABS: Hemoglobin A1C 8.3 % (4.5-5.6)
[2025-05-25] MEDS: ENOXAPARIN INJ 40 MG/0.4 ML SYR SQ SCH (09:22)
[2025-05-25] MEDS: MAGNESIUM SULFATE / D5W 1 GM/100 ML BAG IV SCH (09:22)
[2025-05-25] MEDS: CALCIUM CARBONATE 500 MG CHEWABLE TAB PO SCH (09:23)
[2025-05-25] MEDS: ERGOCALCIFEROL 1250 MCG (50,000 UNITS) CAP PO SCH (09:23)
[2025-05-25] MEDS: DICYCLOMINE HCL 10 MG CAP PO PRN (09:36)
[2025-05-25] MEDS: REMOVE NICODERM PATCH SCH (09:37)
--- NOTE | 2025-05-25 10:21 | XCELERA ---
[id number]
--- NOTE | 2025-05-25 14:12 | Hospitalist Progress Note ---
Date of Service May 25, 2025 Assessment & Plan (1) Nausea & vomiting: (2) Chest pain: (3) Hypothyroidism: (4) Diplopia: Plan 55yo female with history of T2DM, hypothyroidism, GERD, chronic abdominal pain, tobacco dependence, methamphetamine abuse, and prior SBO s/p ex lap ([facility]) who presents with numerous complaints including nausea/vomiting/abdominal pain for several days, low back pain for 1-2 days, chest pain x 1 day, right arm discomfort when she had chest pain, dizziness/vertigo, double vision, headache, and simply feeling unwell. She has not been able to eat/drink for several days. She reports that she took phentermine that she found at home since getting out of skilled nursing 1 week prior. She was incarcerated for 3 months and did not use any drugs during that time. #intractable nausea/vomiting/RLQ abd pain -could be related to constipation. CT abdomen/pelvis on 05/23 ER visit unremarkable. Abdomen is benign on examination. Has a history of IBS. Could also be related to phentermine use or suspected illicit methamphetamine use. LFTs and lipase normal, UA without infection. She has had 6 CTs of her abdomen since 07/2024 for abdominal pain -she reports having had a colonoscopy within the last few years - showed a few polyps only- she also mentions her providers recommending a gastric emptying study as outpatient. Now tolerating clear liquids diet. Received IV fluids - DC IV fluids after third liter - Advance diet to regular -Bentyl as needed - Add daily MiraLAX for constipation -Advised against phentermine use and methamphetamine use #Hypomagnesemia-magnesium severely low at 1.2. Secondary to poor p.o. intake and GI losses - Replace with 4 g of IV magnesium sulfate - Follow-up magnesium level in the a.m. #Vitamin D deficiency/hypocalcemia vitamin D level low at 16, with mild hypocalcemia as well - Start vitamin D2 50,000 units p.o. once weekly - Start calcium carbonate 15 or milligrams p.o. once daily - Follow as an outpatient #chest pain -atypical in nature-EKG w/o ischemic changes. Serial troponin x 2 negative-could pain be GI related in light of nausea/emesis? Echo here without wall motion abnormalities and with preserved EF, mild MR - Now resolved - Continue IV PPI #lumbar back pain - -paraspinal on right -norco prn pain but would not prescribe this on discharge given history of substance abuse -low suspicion for infectious process of the l-spine -if pain recurs/persists consider MRI l-spine (last MRI study was 2020 with mild lumbar DJD only) #dizziness/vertigo/diplopia - -dizziness could be explained by volume contraction, hyperglycemia due to not having adequate insulin at home. MRI brain negative. CT angiogram head and neck without significant stenoses or occlusion, no aneurysm. EOMI. May have been related to migraine headache. Now resolved #migraine headache -now resolved, MRI brain negative. BPs were quite elevated and now are improved #uncontrolled T2DM -she has gained weight during her incarceration and was no longer using methamphetamines. She started using phentermine supposedly after she returned home from [facility]. HgbA1c now increased to 8.3%. She had Lantus at home but no other medications - Give basal bolus insulin here -Recommend low carbohydrate diet and weight loss - Follow-up with PCP #hypothyroidism - -TSH returned high at 20 here however she reports it was as high as 150 approximately while in [facility]-they were giving her a much lower dose of 137 mcg daily and making her take it with her fish oil. She has since stopped her fish oil and went back up to her usual home dose of 200 mcg daily at home since return. Decompensated hypothyroidism could potentially account for some of her symptoms (weight gain, fatigue, simply feeling unwell, etc) --Change levothyroxine to 2 or micrograms daily - Follow TSH in 4 weeks with PCP #GERD - -with all the N/V will increase PPI to twice daily dosing #tobacco dependence - -nicoderm patch 14mg/day -direct care counselor to quit #DVT proph -add Lovenox SQ Disposition-plan to keep overnight while replacing magnesium, check levels in the morning, slowly advance diet, and discharge to home tomorrow Admission and Anticipated Discharge Date Admission Date: May 24, 2025 Subjective Patient feeling much better. Still some minimal residual pain mostly with movement with sitting up in the right lower quadrant. She reports she only moves her bowels about once every other day. She reports that when she got out of skilled nursing, she started taking a bottle of phentermine that she found at home. She denies methamphetamine use. Denies alcohol use. She says that her TSH in skilled nursing was actually as high as 150 because they were giving her levothyroxine 137 mcg along with her fish oil. She stopped the fish oil and since being home increased her levothyroxine to 200 mcg which was her home dose. No further nausea or vomiting has tolerated clear liquids diet. No chest pain and no dizziness or double vision. Physical Exam Constitutional: WD/WN, vitals as above + obese Respiratory: normal respiratory effort, lungs clear to auscultation Cardiovascular: RRR, no murmur, no edema Skin: Multiple scabbed over lesions on her face and neck Results & Data Results & Data Vital Signs (Past 12 Hours) Vital Signs Temp Pulse Pulse Resp BP Pulse Ox O2 Del Method 05/25/25 12:25 36.5 C 88 139/93 92 Room Air 05/25/25 05:48 84 05/25/25 04:05 81 18 137/75 93 Room Air Laboratory Results BMP, magnesium, blood cultures, vitamin D level, B12 level, magnesium, TSH reviewed PG Care Time/CCT Total # of Minutes Spent Total Time Spent with Patient: Total time spent is greater than 50% in coordination of care (as documented) at patient's floor/unit and/or counseling patient: Coding Level of Care Code 62467 SUB INP/OBS CARE 2/35MIN Diagnoses Nausea & vomiting R11.2 Vomiting type: unspecified Chest pain R07.9 Hypothyroidism E03.9 Hypothyroidism type: unspecified Diplopia H53.2 (1) Nausea & vomiting Vomiting type: unspecified Qualified Code(s): R11.2 - Nausea with vomiting, unspecified (3) Hypothyroidism Hypothyroidism type: unspecified Qualified Code(s): E03.9 - Hypothyroidism, unspecified
[2025-05-25] MEDS: POLYETHYLENE (MIRALAX) 17 GM PACK PO SCH (15:26)
[2025-05-26] MEDS: LEVOTHYROXINE SODIUM 200 MCG TABLET PO SCH (05:51)
[2025-05-26 07:24] LABS: Anion Gap 4.0 (3-11); Blood Urea Nitrogen 16.0 mg/dl (6-23); Calcium 8.2 mg/dl (8.6-10.3); Carbon Dioxide 29.0 mmol/L (21-32); Chloride 107.0 mmol/L (98-107); Creatinine Clr Calc Pharmacy 65.5 ml/min; Glucose 129.0 mg/dl (70-99(Fasting)); Magnesium 1.7 mg/dl (1.7-2.4); Potassium 4.1 mmol/L (3.5-5.1); Sodium 140.0 mmol/L (136-145)
--- NOTE | 2025-05-26 14:07 | Discharge Summary ---
Discharge Summary Date of Service May 26, 2025 Principal Dx & Hospital Course #1 = Principal Diagnosis (1) Nausea & vomiting: (2) Chest pain: (3) Hypothyroidism: (4) Diplopia: Plan 55yo female with history of T2DM, hypothyroidism, GERD, chronic abdominal pain, tobacco dependence, methamphetamine abuse, and prior SBO s/p ex lap ([facility]) who presents with numerous complaints including nausea/vomiting/abdominal pain for several days, low back pain for 1-2 days, chest pain x 1 day, right arm discomfort when she had chest pain, dizziness/vertigo, double vision, headache, and simply feeling unwell. She has not been able to eat/drink for several days. She reports that she took phentermine that she found at home since getting out of group home 1 week prior. She was incarcerated for 3 months and did not use any drugs during that time. #intractable nausea/vomiting/RLQ abd pain -could be related to constipation. CT abdomen/pelvis on 05/23 ER visit unremarkable. Abdomen is benign on examination. Has a history of IBS. Could also be related to phentermine use or suspected illicit methamphetamine use. LFTs and lipase normal, UA without infection. She has had 6 CTs of her abdomen since 07/2024 for abdominal pain -she reports having had a colonoscopy within the last few years - showed a few polyps only- she also mentions her providers recommending a gastric emptying study as outpatient. Now tolerating regular diet. Received IV fluids. Still no BM during admission but abdominal pain resolved. She did take a few doses of hydrocodone but this will not be continued on discharge -Bentyl as needed -Continue daily to bid MiraLAX for constipation after discharge -Advised against phentermine use and methamphetamine use -increased PPI to bid #Hypomagnesemia-magnesium severely low at 1.2. Secondary to poor p.o. intake. Replaced and resolved #Vitamin D deficiency/hypocalcemia vitamin D level low at 16, with mild hypocalcemia as well - Started vitamin D2 50,000 units p.o. once weekly - Started calcium carbonate 1500 milligrams p.o. once daily-OTC TUMS - Follow as an outpatient #chest pain -atypical in nature-EKG w/o ischemic changes. Serial troponin x 2 negative-could pain be GI related in light of nausea/emesis? Echo here without wall motion abnormalities and with preserved EF, mild MR - Now resolved - received IV PPI bid and convert to po PPI bid on discharge #lumbar back pain - -paraspinal on right -norco prn pain but would not prescribe this on discharge given history of substance abuse -low suspicion for infectious process of the l-spine -if pain recurs/persists consider MRI l-spine (last MRI study was 2020 with mild lumbar DJD only) as an outpt #dizziness/vertigo/diplopia - -dizziness could be explained by volume contraction, hyperglycemia due to not having adequate insulin at home. MRI brain negative. CT angiogram head and neck without significant stenoses or occlusion, no aneurysm. EOMI. May have been related to migraine headache. Now resolved #migraine headache -now resolved, MRI brain negative. BPs were quite elevated and now are improved. Elevated BPs may have been from amphetamine use #uncontrolled T2DM -she has gained weight during her incarceration and was no longer using methamphetamines. She started using phentermine supposedly after she returned home from correction. HgbA1c now increased to 8.3%. She had Lantus and Novolog vials at home supplied by the correction but did not have any insulin needles. Prefers to use pens -prescribed Lantus and Novolog FlexPens on discharge and pen needles -Recommend low carbohydrate diet and weight loss -Follow-up with PCP #hypothyroidism - -TSH returned high at 20 here however she reports it was as high as 150 approximately while in correction-they were giving her a much lower dose of 137 mcg daily and making her take it with her fish oil. She has since stopped her fish oil and went back up to her usual home dose of 200 mcg daily at home since return. Decompensated hypothyroidism could potentially account for some of her symptoms (weight gain, fatigue, simply feeling unwell, etc) --Changed levothyroxine to 200 micrograms daily - Follow TSH in 4 weeks with PCP #GERD - -with all the N/V will increased PPI to twice daily dosing and resolved -can continue zofran prn at home #tobacco dependence - -nicoderm patch 14mg/day provided here -counseled to quit #DVT proph - Lovenox SQ Disposition-discharge to home Notes For Next Care Provider Recommend referral for outpt substance abuse counseling Needs TSH in 1 month Medication Changes From Visit see medication list Admission HPI Per Admitting Provider 55yo female with history of T2DM, hypothyroidism, GERD, chronic abdominal pain, tobacco dependence, and prior SBO s/p ex lap ([facility]) who presents with numerous complaints including nausea/vomiting/abdominal pain for several days, low back pain for 1-2 days, chest pain yesterday (improved today), right arm discomfort when he had chest pain, dizziness/vertigo, double vision, headache, and simply feeling unwell. She has not been able to eat/drink for several days. Was evaluated in our ER yesterday; had negative CT abd/pelvis along with labs (normal) and was ultimately released home. However, upon return home last night, she had dry heaves once again. She reports markedly elevated blood sugars with one as high as 400. She c/o dry mouth. When asked what symptoms are the worst she reports the abdominal pain, chest pain, and the lumbar back pain. The abdominal pain is in the RLQ. During the encounter she asks for pain meds & anti-nausea meds. Discharge Exam Constitutional WD/WN, vitals as above + obese Respiratory normal respiratory effort, lungs clear to auscultation Cardiovascular RRR, no murmur, no edema Gastrointestinal (Abdomen) normal bowel sounds, soft, nontender, no hepatosplenomegaly Psychiatric A+Ox3, euthymic affect Discharge Plan Discharge Items Patient Disposition: Home - Self-Care Reason For Visit: INTRACTABLE NAUSEA, VOMITING, HEADACHE, ABD PAIN Discharge Diagnosis: Nausea/vomiting, abdominal pain, chest pain Symptoms likely secondary to phentermine use and low magnesium levels Hypomagnesemia Vitamin D deficiency Hypocalcemia Hypothyroidism uncontrolled Condition on Discharge: Good Activity: Resume your previous activity Non-emergency contact: Primary Care Provider Call non-emergency contact if: you have any medication questions and your symptoms worsen Follow-up/Referrals: Timoteo Muniz MD [Primary Care Provider] - 06/01/25 11:20 am (Hospital follow up) Diet: Carb Consistent or DM2 Addtl Attending Provider Instructions: You were admitted with nausea and vomiting, abdominal pain, chest pain, double vision and had an extensive workup. Some of the symptoms were likely secondary to taking phentermine. Your magnesium level was low and this was replaced. Your vitamin D and calcium levels were low and this was replaced. Please continue on the vitamin D and calcium supplements after discharge. Your thyroid function is still low although improved from previous. Your levothyroxine dose should stay at 200 mcg daily and should follow-up with your primary care physician for this. Please continue on omeprazole but your dose will be increased to twice a day in case your abdominal pains were from inflammation of the stomach. Your blood sugars have also been high at home. It is important that you take your insulin every day as directed. It is very important that you not take any methamphetamines or phentermine to avoid having any symptoms in the future. Pending Studies at Discharge: Yes (Final blood cultures-no growth to date) Stand-Alone Forms: My [facility] [employer], Smoking Cessation Medications and DC Order Prescriptions: New levothyroxine [Synthroid] 200 mcg Tablet 200 mcg PO DAILYBB Qty: 30 0RF ergocalciferol (vitamin D2) 1,250 mcg (50,000 unit) Capsule 1,250 mcg PO Q7D@0900 Qty: 4 0RF insulin aspart U-100 100 unit/mL (3 mL) insulin pen 1 sliding scale dose subcut USEASDIRECTD Qty: 15 0RF Rx Instructions: Take with each meal as per your written sliding scale (DME) pen needle, diabetic [Pen Needle] 32 gauge x 5/32" needle See Rx Instructions .Route Qty: 100 0RF Rx Instructions: As directed with insulin pens four times a day calcium carbonate [Tums] 200 mg calcium (500 mg) Tablet,Chewable 1,500 mg PO DAILY Qty: 30 0RF Continued (DME) OneTouch Verio test strips Strip See Rx Instructions .Route Qty: 100 0RF Rx Instructions: As directed. Check blood glucose twice a day (DME) OneTouch Verio test strips Strip See Rx Instructions .Route Qty: 100 0RF Rx Instructions: As directed (DME) lancets [OneTouch Delica Plus Lancet] 33 gauge misc See Rx Instructions .Route Qty: 100 0RF Rx Instructions: As directed (DME) pen needle, diabetic [Pen Needle] 32 gauge x 5/32" needle See Rx Instructions .Route Qty: 100 0RF Rx Instructions: As directed gabapentin 300 mg capsule 300 mg PO AMHS acetaminophen [Tylenol] 325 mg Tablet 650 mg PO TID PRN (Reason: Pain) albuterol sulfate 2.5 mg /3 mL (0.083 %) Solution For Nebulization 2.5 mg INHALATION TID PRN (Reason: Shortness Of Breath Or Wheezing) sumatriptan succinate [Imitrex] 50 mg Tablet 50 mg PO DIRECTED PRN (Reason: MIGRAINE HEADACHES) Rx Instructions: ON HOLD take 1 tab at onset of headache; if no relief may repeat 1 tab after at least 2 hrs; max = 4 tabs/24 hr dicyclomine 10 mg Capsule 10 mg PO HS PRN (Reason: ABD DISCOMFORT) duloxetine 30 mg capsule,delayed release(DR/EC) 30 mg PO QAM ondansetron 4 mg tablet,disintegrating 4 mg PO Q8H PRN (Reason: nausea and vomiting) 5 Days Qty: 15 0RF insulin glargine 100 unit/mL (3 mL) insulin pen 26 unit subcut HS Qty: 15 0RF Changed omeprazole 20 mg Capsule,Delayed Release(Dr/Ec) 20 mg PO BID Qty: 60 0RF polyethylene glycol 3350 [Miralax] 17 gram/dose Powder 17 g PO DAILY Qty: 119 0RF hydroxyzine pamoate 50 mg Capsule 50 mg PO HS Qty: 30 0RF Discontinued levothyroxine 137 mcg Tablet 137 mcg PO DAILY phenylephrine HCl 10 mg Tablet 10 mg PO BID PRN (Reason: NEEDED) promethazine 25 mg tablet 25 mg PO TID PRN (Reason: NAUSEA/VOMITING) Discharge Orders: Discharge Order (Routine); Ordered 05/26/25 Ordered By: Nohemy Griffith/Other Patient Handouts: High Blood Sugar (Hyperglycemia), Hypoglycemia (Low Blood Sugar), Managing Type 2 Diabetes Admission Data Admit Date/Time: 05/24/25 19:38 Attending Provider: Nohemy Marie Admit Provider: Negro Real Primary Care Provider: Timoteo Muniz Other Providers: Negro Real Hospital Stay Data Consultations 05/24/25 18:46 ED Decision to Admit Stat Diagnostic Imagining Performed 05/24/25 16:30 CT angio head w con Stat CT angio neck with con Stat CT head/brain wo con Stat 05/24/25 19:38 MR brain wo con Routine Pending Results Patient Have Any Pending Studies at Discharge: Yes (Final blood cultures-no growth to date) Discharge Instructions Given to Patient (Per Discharging Provider) You were admitted with nausea and vomiting, abdominal pain, chest pain, double vision and had an extensive workup. Some of the symptoms were likely secondary to taking phentermine. Your magnesium level was low and this was replaced. Your vitamin D and calcium levels were low and this was replaced. Please cont inue on the vitamin D and calcium supplements after discharge. Your thyroid function is still low although improved from previous. Your levothyroxine dose should stay at 200 mcg daily and should follow-up with your primary care physician for this. Please continue on omeprazole but your dose will be increased to twice a day in case your abdominal pains were from inflammation of the stomach. Your blood sugars have also been high at home. It is important that you take your insulin every day as directed. It is very important that you not take any methamphetamines or phentermine to avoid having any symptoms in the future. Total Time Total Time Spent Total Time Spent (In Minutes): 35 min Total Time Includes: Examination of the Patient, Discharge Planning and Medication Reconciliation Coding Level of Care Code 59001 INP/OBS DISCH >30 MIN Diagnoses Nausea & vomiting R11.2 Vomiting type: unspecified Chest pain R07.9 Hypothyroidism E03.9 Hypothyroidism type: unspecified Diplopia H53.2
[2025-05-26 16:24] VITALS: BP 141/78; PULSE 71; RESP 16; TEMP 98.4; O2SAT 97
[2025-05-30 08:47] LABS: Amphetamine Urine, Confirm 517 ng/mL (<250); Methamphetamine, Ur Confirm 2688 ng/mL (<250)
== END 2025-05-26 17:14 | disposition home or self-care (01) | DRG 918 ==
LOC: ED 14:51 → INTOOBSV 19:38 → 2N 21:18 → SUATTDRO 21:34

== ENCOUNTER 2025-07-20 18:54 | Inpatient (IN) ==
--- NOTE | 2025-07-20 19:27 | Emergency Department Note ---
Impression & Plan Right sided abdominal pain, Vomiting, Tachycardia, Acute dehydration, Hypomagnesemia, Hypertension, Elevated lactic acid level ED Provider Note NAME: NATHALIA MARY AGE: 55 SEX: F : 1970 ARRIVES VIA: Walk-In INFORMANT: [Patient] ED PROVIDER(S): [Camron Pacheco MD] CHIEF COMPLAINT: Chest pain, abdominal pain, double vision HISTORY OF PRESENT ILLNESS: The patient is a 55-year-old female with multiple complaints. She has a history of chronic abdominal pain. She presents today complaining of double vision, chest pain, a pounding of her heart up into her ears, nausea and vomiting, right sided abdominal pain, constipation mixed with diarrhea. She believes her abdomen is distended. The patient has tried MiraLAX, Bentyl, Reglan, Tylenol, ibuprofen and Zofran without relief. The patient is trying to avoid any further CT imaging, she has had multiple CTs on her abdomen in the past. There has been no fever, no cough, her urine is dark in color but there is no urinary burning. Of note, the patient is currently on house arrest. The patient was noted to be hypertensive in triage. She states that she did take her medication for blood pressure today. PMHx/PSHx/Social Hx: See Below PHYSICAL EXAM: GENERAL: Patient is in mild distress from pain, complaining of nausea. HEENT: No acute trauma, normocephalic atraumatic, mucous membranes moist, no nasal congestion. NECK: No stridor, no adenopathy, no meningismus, trachea is midline. LUNGS: Clear to auscultation bilaterally, no wheeze, no rhonchi, breath sounds equal. HEART: Tachycardic without any murmurs, regular rhythm. ABDOMEN: Soft, tender along the entire right side of the abdomen, there is some mild distention. EXTREMITIES: No cyanosis, full range of motion of all the joints without pain or difficulty. Mild bilateral pedal edema. NEUROLOGIC: Oriented x 3, no acute motor or sensory deficits, no focal weakness. SKIN: No jaundice, no diaphoresis. DIFFERENTIAL DIAGNOSIS: Constipation, bowel obstruction, uncontrolled hypertension, dehydration, electrolyte imbalance, UTI, among others. EMERGENCY DEPARTMENT PROCEDURES: MEDICAL DECISION MAKING: There is no leukocytosis or concerning anemia. There is a normal platelet count. There is no bandemia. No renal failure. Lactic acid level is somewhat elevated consistent with sepsis or just dehydration. Magnesium was quite low at 1.5. No concerning liver enzyme elevation. No evidence for pancreatitis. ECG shows a sinus tachycardia, no ischemia. Cardiac enzyme testing x 1 is not consistent with acute cardiac injury. Urinalysis does not show findings of infection. Abdominal x-ray shows some constipation on the right, no bowel obstruction. Chest x-ray does not show pneumonia or free air. On exam, the patient was hypertensive, tachycardic and complaining of abdominal pain and nausea. The patient received 2 L of IV saline. She was given IV Phenergan, IV Zofran, IV morphine, she was given IV magnesium. With the above interventions, the patient is improved, her heart rate has improved although she remains somewhat tachycardic, her blood pressure is improved and she is more comfortable. Given the findings, given her persistent tachycardia, given the electrolyte disturbance, I do think hospitalization and further IV hydration/care is required. I spoke with the patient and case management, the on-call hospitalist was consulted. The cause for all her complaints is unclear however, looking back at the previous hospital notes, she has had these issues before and has been admitted before for similar complaints. Prior/Outside records/notes reviewed: Discharge summary note from 05/26/2025 describing her presentation, hospital course and plan at discharge. ECG per my interpretation: Indication was chest and abdominal pain. The ECG shows a sinus tachycardia with a rate of 136. There is some nonspecific ST change. There is no ST elevation, no PVCs. The QTc is 472. Continuous Cardiac Monitoring per my interpretation: An order was placed for continuous cardiac monitoring. The monitor shows a rate of 128 with sinus tachycardia. Imaging/x-ray results per my interpretation: Chest x-ray does not show free air, pneumonia or pneumothorax. Chronic Medical/Social conditions affecting care: History of chronic abdominal pain, currently under house arrest. Care/Management discussed with: Case management and the on-call hospitalist. Level of care consideration(s): After review of the information above and other included data: --I believe the patient requires escalation of care to admission DISPOSITION: Admission Past Med/Surg History Problem List Elevated lactic acid level (Acute) Hypertension (Acute) Hypomagnesemia (Acute) Acute dehydration (Acute) Tachycardia (Acute) Vomiting (Acute) Right sided abdominal pain (Acute) Lumbar back pain DIANE (acute kidney injury) (Acute) Type 2 diabetes mellitus IBS (irritable bowel syndrome) (Chronic) Hypothyroidism (Chronic) Medical History Abdominal pain Diabetes Depression Endometriosis Nausea and vomiting Surgical History (Updated 05/24/25 @ 20:14 by Negro Real MD) H/O: hysterectomy with BSO History of cholecystectomy History of appendectomy H/O hemorrhoidectomy H/O laparoscopy for SBO; had lysis of adhesions H/O wisdom tooth extraction Social History Smoking Status: Current every day smoker Tobacco Type: Cigarettes Cigarettes Per Day: 3; Second Hand Exposure: No; Do You Dip or Chew Tobacco: No; Hx Alcohol Use: No Hx Substance Use: No Preferred Language: Urdu Communication Ability: Effective Senior Sustainability Advisor Required: No Beliefs That Will Affect Care: None marital status: Single Current Living Situation: Alone Current Living Situation Comment: father staying w/ pt and grandson How many Children do You have: 1 Feels Safe at Home: Yes Assistive Devices: Cane and Walker Allergies Allergies Allergy/AdvReac Type Severity Reaction Status Date / Time nabumetone Allergy Intermediate swelling Verified 05/24/25 20:23 NSAIDS (Non-Steroidal Allergy Intermediate SWELLING Verified 05/24/25 20:23 Anti-Inflamma acetaminophen AdvReac Intermediate VOMITING, Verified 05/24/25 20:23 RASH--RAISES LIVER ENZYMES Home Meds Home Medications Medication Instructions Recorded Confirmed gabapentin 300 mg capsule 300 mg PO AMHS 10/19/23 07/20/25 duloxetine 30 mg capsule,delayed 30 mg PO QAM 01/07/24 07/20/25 release acetaminophen 325 mg tablet 650 mg PO TID PRN Pain 05/05/25 07/20/25 (Tylenol) albuterol sulfate 2.5 mg/3 mL 2.5 mg inhalation TID PRN 05/05/25 07/20/25 (0.083 %) solution for nebulization Shortness Of Breath Or Wheezing dicyclomine 10 mg capsule 10 mg PO HS PRN ABD DISCOMFORT 05/05/25 07/20/25 sumatriptan succinate 50 mg tablet 50 mg PO DIRECTED PRN MIGRAINE 05/05/25 07/20/25 (Imitrex) HEADACHES insulin glargine 100 unit/mL (3 28 unit subcut HS 07/20/25 07/20/25 mL) subcutaneous pen Previous Rx's Medication Instructions Recorded blood sugar diagnostic (OneTouch #100 ea 12/01/22 Verio test strips) blood sugar diagnostic (OneTouch #100 ea 04/29/23 Verio test strips) lancets 33 gauge (OneTouch Delica #100 ea 04/29/23 Plus Lancet) pen needle, diabetic 32 gauge x #100 ea 04/29/23" (Pen Needle) calcium carbonate (Tums) 1,500 mg (7.5 x 200 mg calcium 05/26/25 (500 mg)) PO DAILY #30 tabs ergocalciferol (vitamin D2) 1,250 1,250 mcg PO Q7D@0900 #4 caps 05/26/25 mcg (50,000 unit) capsule hydroxyzine pamoate 50 mg capsule 50 mg PO HS #30 caps 05/26/25 insulin aspart U-100 100 unit/mL 1 sliding scale dose subcut 05/26/25 (3 mL) subcutaneous pen USEASDIRECTD #15 mL levothyroxine 200 mcg tablet 200 mcg PO DAILYBB #30 tabs 05/26/25 (Synthroid) omeprazole 20 mg capsule,delayed 20 mg PO BID #60 caps 05/26/25 release pen needle, diabetic 32 gauge x #100 ea 05/26/25" (Pen Needle) polyethylene glycol 3350 17 17 g PO DAILY Constipation #119 05/26/25 gram/dose oral powder (Miralax) grams Results & Data (ED) Vital Signs Vital Signs - 24 hr 07/20/25 18:59 07/20/25 19:30 07/20/25 20:12 Temperature 36.5 C Temperature Source Temporal Artery Scan Pulse Rate 140 H 131 H 138 H Respiratory Rate 20 20 Respiratory Effort / Characteristics Non-Labored Spontaneous Respiratory Depth Normal Blood Pressure 192/146 H 158/104 H Blood Pressure Mean 161 122 Pulse Oximetry 95 97 Oxygen Delivery Method Room Air Sepsis Recent Fever Within 48 Hours No Sepsis New/Unexplained Change in Mental Status No Sepsis Action Taken by Nursing No Action Required 07/20/25 21:23 07/20/25 22:00 07/20/25 23:25 Temperature Temperature Source Pulse Rate 117 H 114 H 113 H Respiratory Rate 20 22 Respiratory Effort / Characteristics Respiratory Depth Blood Pressure 135/99 155/130 H Blood Pressure Mean 111 140 Pulse Oximetry 96 99 Oxygen Delivery Method Sepsis Recent Fever Within 48 Hours Sepsis New/Unexplained Change in Mental Status Sepsis Action Taken by Nursing 07/20/25 23:31 07/20/25 23:31 Temperature Temperature Source Pulse Rate 120 H Respiratory Rate 18 Respiratory Effort / Characteristics Respiratory Depth Blood Pressure 142/88 H 142/88 H Blood Pressure Mean 110 110 Pulse Oximetry 99 Oxygen Delivery Method Sepsis Recent Fever Within 48 Hours Sepsis New/Unexplained Change in Mental Status Sepsis Action Taken by [facility] Medications Current Medication List: was personally reviewed by me Laboratory Data Attestation: I reviewed the patient's lab results. 07/20/25 19:06 07/20/25 19:06 Lab Results 07/20/25 07/20/25 07/20/25 Range/Units 19:06 19:07 22:51 WBC 10.10 (4.8-10.8) K/ul RBC 4.84 (4.20-5.40) M/uL Hgb 14.2 (12.0-16.0) g/dL Hct 40.8 (37.0-47.0) % MCV 84.3 (80.0-100.0) fL MCH 29.3 (25.0-34.0) pg MCHC 34.8 (32.0-36.0) g/dL RDW Std Deviation 41.8 (36.4-46.3) fL RDW Coeff of Adolfo 13.5 (11.5-14.5) % Plt Count 262 (130-400) K/uL MPV 9.6 (9.4-12.4) fL Immature Gran % (Auto) 0.5 % Neut % (Auto) 77.8 % Lymph % (Auto) 15.6 % [place] % (Auto) 5.2 % Eos % (Auto) 0.1 % Baso % (Auto) 0.8 % Neut # (Auto) 7.85 H (1.40-6.50) K/uL Lymph # (Auto) 1.58 (1.20-3.40) K/uL [place] # (Auto) 0.53 (0.11-0.59) K/uL Eos # (Auto) 0.01 (0.00-0.50) K/uL Baso # (Auto) 0.08 (0.00-0.20) K/uL Immature Gran # (Auto) 0.05 (0.01-0.20) K/uL Sodium 136 (136-145) mmol/L Potassium 4.0 (3.5-5.1) mmol/L Chloride 100 (98-107) mmol/L Carbon Dioxide 24 (21-32) mmol/L Anion Gap 12 H (3-11) BUN 18 (6-23) mg/dl Creatinine 1.12 (0.6-1.2) mg/dl Est Cr Clr Drug Dosing 60.6 ml/min eGFR 58.44 BUN/Creatinine Ratio 16.1 (10-20) Glucose 251 H (70-99(Fasting)) mg/dl Lactate 2.8 H* 1.6 (0.4-2.0) mmol/L Calcium 9.1 (8.6-10.3) mg/dl Magnesium 1.2 L (1.7-2.4) mg/dl Total Bilirubin 0.4 (0.2-1.0) mg/dl AST 14 (13-39) U/L ALT 21 (7-52) U/L Alkaline Phosphatase 102 (34-104) U/L Troponin I High Sens 5.0 (0-14) pg/ml Total Protein 7.7 (6.0-8.3) gm/dl Albumin 4.2 (3.4-5.0) gm/dl Globulin 3.5 (2.5-4.0) gm/dl Albumin/Globulin Ratio 1.2 (0.9-2) Lipase 35 (11-82) U/L Urine Color Urine Appearance (Clear) Urine pH (4.5-7.5) Ur Specific [place] (1.000-1.030) Urine Protein (Negative) Urine Glucose (UA) (Negative) Urine Ketones (Negative) Urine Blood (Negative) Urine Nitrite (Negative) Urine Bilirubin (Negative) Urine Urobilinogen (Negative) Ur Leukocyte Esterase (Negative) Urine WBC (Auto) (0-5) /hpf Urine RBC (Auto) (0-2) /hpf U Hyaline Cast (Auto) (0-2) /lpf U Epithel Cells (Auto) (0-2) /hpf Urine Bacteria (Auto) (None Seen) Urine Comment 07/20/25 Range/Units Unknown WBC (4.8-10.8) K/ul RBC (4.20-5.40) M/uL Hgb (12.0-16.0) g/dL Hct (37.0-47.0) % MCV (80.0-100.0) fL MCH (25.0-34.0) pg MCHC (32.0-36.0) g/dL RDW Std Deviation (36.4-46.3) fL RDW Coeff of Adolfo (11.5-14.5) % Plt Count (130-400) K/uL MPV (9.4-12.4) fL Immature Gran % (Auto) % Neut % (Auto) % Lymph % (Auto) % [place] % (Auto) % Eos % (Auto) % Baso % (Auto) % Neut # (Auto) (1.40-6.50) K/uL Lymph # (Auto) (1.20-3.40) K/uL [place] # (Auto) (0.11-0.59) K/uL Eos # (Auto) (0.00-0.50) K/uL Baso # (Auto) (0.00-0.20) K/uL Immature Gran # (Auto) (0.01-0.20) K/uL Sodium (136-145) mmol/L Potassium (3.5-5.1) mmol/L Chloride (98-107) mmol/L Carbon Dioxide (21-32) mmol/L Anion Gap (3-11) BUN (6-23) mg/dl Creatinine (0.6-1.2) mg/dl Est Cr Clr Drug Dosing ml/min eGFR BUN/Creatinine Ratio (10-20) Glucose (70-99(Fasting)) mg/dl Lactate (0.4-2.0) mmol/L Calcium (8.6-10.3) mg/dl Magnesium (1.7-2.4) mg/dl Total Bilirubin (0.2-1.0) mg/dl AST (13-39) U/L ALT (7-52) U/L Alkaline Phosphatase (34-104) U/L Troponin I High Sens (0-14) pg/ml Total Protein (6.0-8.3) gm/dl Albumin (3.4-5.0) gm/dl Globulin (2.5-4.0) gm/dl Albumin/Globulin Ratio (0.9-2) Lipase (11-82) U/L Urine Color Yellow Urine Appearance Clear (Clear) Urine pH 5.0 (4.5-7.5) Ur Specific [place] 1.019 (1.000-1.030) Urine Protein 2+ H (Negative) Urine Glucose (UA) Trace H (Negative) Urine Ketones Negative (Negative) Urine Blood 1+ H (Negative) Urine Nitrite Negative (Negative) Urine Bilirubin Negative (Negative) Urine Urobilinogen Negative (Negative) Ur Leukocyte Esterase Negative (Negative) Urine WBC (Auto) 0-5 (0-5) /hpf Urine RBC (Auto) 0-2 (0-2) /hpf U Hyaline Cast (Auto) 0-2 (0-2) /lpf U Epithel Cells (Auto) 6-10 H (0-2) /hpf Urine Bacteria (Auto) 2+ H (None Seen) Urine Comment Administered Medications Tramadol HCl (Tramadol Hcl 50 Mg Tablet) 50 mg PO Q4H PRN PRN Reason: Pain Stop: 08/19/25 23:15 Last Admin: 07/20/25 23:31 Dose: 50 mg Documented By: TAWANA Discontinued Medications Sodium Chloride (Nss) 1,000 mls @ 999 mls/hr IV .Q1H1M ONE Stop: 07/20/25 20:19 Last Infusion: 07/20/25 20:35 Dose: Infused Documented By: nellie Admin: 07/20/25 19:31 Dose: 999 mls/hr Documented By: TAWANA Promethazine HCl (Phenergan) 12.5 mg in 50.5 mls @ 202 mls/hr IV NOW STA Stop: 07/20/25 19:33 Last Infusion: 07/20/25 19:58 Dose: Infused Documented By: Admin: 07/20/25 19:31 Dose: 202 mls/hr Documented By: TAWANA Magnesium Sulfate/Dextrose (Magnesium Sulfate / D5w) 1 gm in 100 mls @ 100 mls/hr IV Q1H ANTHONY Stop: 07/20/25 22:16 Last Infusion: 07/20/25 23:17 Dose: Infused Documented By: Admin: 07/20/25 22:13 Dose: 100 mls/hr Documented By: Infusion: 07/20/25 22:05 Dose: Infused Documented By: Admin: 07/20/25 21:05 Dose: 100 mls/hr Documented By: nellie Sodium Chloride (Nss) 500 mls @ 999 mls/hr IV .Q31M ONE Stop: 07/20/25 20:47 Last Admin: 07/20/25 22:12 Dose: 999 mls/hr Documented By: TAWANA Sodium Chloride (Nss) 500 mls @ 999 mls/hr IV .Q31M ONE Stop: 07/20/25 22:22 Last Admin: 07/20/25 23:31 Dose: 999 mls/hr Documented By: TAWANA Morphine Sulfate (Morphine Sulfate 10 Mg/Ml Carp/Vial) 6 mg IV NOW STA Stop: 07/20/25 20:20 Last Admin: 07/20/25 21:05 Dose: 6 mg Documented By: nellie Ondansetron HCl (Ondansetron Inj 2 Mg/Ml 2 Ml Vial) 4 mg IV NOW STA Stop: 07/20/25 19:20 Last Admin: 07/20/25 19:31 Dose: 4 mg Documented By: TAWANA Imaging Data Radiologist's Impression: Chest X-Ray 07/20/25 19:07 Chest radiograph, one view History: Chest pain Comparison: None Findings: Single AP view of the chest performed. No focal consolidation or pleural effusion. No pneumothorax. The cardiomediastinal silhouette is within normal limits. Normal pulmonary vascularity. No evidence for lymphadenopathy. No visualized bony or soft tissue abnormality. Impression: Normal chest radiograph Electronically signed by Tk Drummond 07-20-2025 7:48 PM KUB X-Ray 07/20/25 19:19 Exam(s): XR KUB EXAM: XR Abdomen, 1 View CLINICAL HISTORY: poss constipation. TECHNIQUE: Frontal supine view of the abdomen/pelvis. COMPARISON: No relevant prior studies available. FINDINGS: Gastrointestinal tract: Mild scattered bowel gas in nondilated small and large bowel throughout the abdomen and pelvis. Mild stool burden in the right colon. No appreciable stool burden in the distal transverse or descending colon. Questionable minimal stool in the rectosigmoid in the pelvis. Bones/joints: No significant abnormality. No acute fracture. IMPRESSION: Nonspecific, nonobstructive bowel gas pattern. Mild stool burden. Electronically signed by: Evan Daly MD 07/20/25 20:15 PM Discharge Plan Visit Data Chief Complaint: Chest Pain Stated Complaint: CHEST PAIN, VISION, PAIN IN STOMACH ED Provider: Camron Pacheco Discharge Problem: Right sided abdominal pain, Vomiting, Tachycardia, Acute dehydration, Hypomagnesemia, Hypertension, Elevated lactic acid level Patient Disposition: Admitted As Inpatient Condition: Fair Forms Stand Alone Forms: [facility] [employer] Prescriptions Prescriptions: No Action (DME) OneTouch Verio test strips Strip See Rx Instructions .Route Qty: 100 0RF Rx Instructions: As directed. Check blood glucose twice a day (DME) OneTouch Verio test strips Strip See Rx Instructions .Route Qty: 100 0RF Rx Instructions: As directed (DME) lancets [OneTouch Delica Plus Lancet] 33 gauge misc See Rx Instructions .Route Qty: 100 0RF Rx Instructions: As directed (DME) pen needle, diabetic [Pen Needle] 32 gauge x 5/32" needle See Rx Instructions .Route Qty: 100 0RF Rx Instructions: As directed gabapentin 300 mg capsule 300 mg PO AMHS acetaminophen [Tylenol] 325 mg Tablet 650 mg PO TID PRN (Reason: Pain) albuterol sulfate 2.5 mg /3 mL (0.083 %) Solution For Nebulization 2.5 mg INHALATION TID PRN (Reason: Shortness Of Breath Or Wheezing) sumatriptan succinate [Imitrex] 50 mg Tablet 50 mg PO DIRECTED PRN (Reason: MIGRAINE HEADACHES) Rx Instructions: ON HOLD take 1 tab at onset of headache; if no relief may repeat 1 tab after at least 2 hrs; max = 4 tabs/24 hr dicyclomine 10 mg Capsule 10 mg PO HS PRN (Reason: ABD DISCOMFORT) insulin glargine 100 unit/mL (3 mL) insulin pen 28 unit subcut HS duloxetine 30 mg capsule,delayed release(DR/EC) 30 mg PO QAM calcium carbonate [Tums] 200 mg calcium (500 mg) Tablet,Chewable 1,500 mg PO DAILY Qty: 30 0RF levothyroxine [Synthroid] 200 mcg Tablet 200 mcg PO DAILYBB Qty: 30 0RF ergocalciferol (vitamin D2) 1,250 mcg (50,000 unit) Capsule 1,250 mcg PO Q7D@0900 Qty: 4 0RF Rx Instructions: was not in stock hydroxyzine pamoate 50 mg Capsule 50 mg PO HS Qty: 30 0RF omeprazole 20 mg Capsule,Delayed Release(Dr/Ec) 20 mg PO BID Qty: 60 0RF polyethylene glycol 3350 [Miralax] 17 gram/dose Powder 17 g PO DAILY Qty: 119 0RF insulin aspart U-100 100 unit/mL (3 mL) insulin pen 1 sliding scale dose subcut USEASDIRECTD Qty: 15 0RF Rx Instructions: Take with each meal as per your written sliding scale (DME) pen needle, diabetic [Pen Needle] 32 gauge x 5/32" needle See Rx Instructions .Route Qty: 100 0RF Rx Instructions: As directed with insulin pens four times a day Referrals Referrals: Timoteo Muniz MD [Primary Care Provider] - Discharge Problem: Vomiting Qualifiers: Vomiting type: unspecified Nausea presence: with nausea Qualified Code(s): R 11.2 - Nausea with vomiting, unspecified Hypertension Qualifiers: Hypertension type: unspecified Qualified Code(s): I10 - Essential (primary) hypertension
[2025-07-20] MEDS: SODIUM CHLORIDE 0.9% 1,000 ML IV ONE (19:31)
[2025-07-20] MEDS: PROMETHAZINE 12.5 MG/50.5 ML BAG IV STA (19:31)
[2025-07-20] MEDS: ONDANSETRON INJ 2 MG/ML 2 ML VIAL IV STA (19:31)
[2025-07-20 19:46] LABS: Hematocrit (blood only) 40.8 % (37.0-47.0); Hemoglobin 14.2 g/dL (12.0-16.0); Immature Granulocytes # (auto) 0.05 K/uL (0.01-0.20); Immature Granulocytes % (auto) 0.5 %; Mean Corpuscular Hemoglobin 29.3 pg (25.0-34.0); Mean Corpuscular Volume 84.3 fL (80.0-100.0); Platelet Count 262 K/uL (130-400); RDW Standard Deviation 41.8 fL (36.4-46.3); Red Blood Count 4.84 M/uL (4.20-5.40); White Blood Count 10.10 K/ul (4.8-10.8)
--- NOTE | 2025-07-20 19:49 | XRay Report ---
Chest radiograph, one view History: Chest pain Comparison: None Findings: Single AP view of the chest performed. No focal consolidation or pleural effusion. No pneumothorax. The cardiomediastinal silhouette is within normal limits. Normal pulmonary vascularity. No evidence for lymphadenopathy. No visualized bony or soft tissue abnormality. Impression: Normal chest radiograph Electronically signed by Tk Drummond 07-20-2025 7:48 PM
[2025-07-20 20:00] LABS: Appearance Urine Clear (Clear); Bacteria Urine Automated 2+ (None Seen); Cast Urine Automated 0-2 /lpf (0-2); Glucose Urine UA Trace (Negative); RBC Urine Automated 0-2 /hpf (0-2); WBC Urine Automated 0-5 /hpf (0-5)
[2025-07-20 20:07] LABS: Alanine Aminotransferase 21.0 U/L (7-52); Albumin Globulin Ratio 1.2 (0.9-2); Albumin Level 4.2 gm/dl (3.4-5.0); Alkaline Phosphatase 102.0 U/L (34-104); Anion Gap 12.0 (3-11); Bilirubin,Total 0.4 mg/dl (0.2-1.0); Blood Urea Nitrogen 18.0 mg/dl (6-23); Calcium 9.1 mg/dl (8.6-10.3); Carbon Dioxide 24.0 mmol/L (21-32); Chloride 100.0 mmol/L (98-107); Creatinine Clr Calc Pharmacy 60.6 ml/min; Globulin 3.5 gm/dl (2.5-4.0); Glucose 251.0 mg/dl (70-99(Fasting)); Lipase 35.0 U/L (11-82); Magnesium 1.2 mg/dl (1.7-2.4); Potassium 4.0 mmol/L (3.5-5.1); Sodium 136.0 mmol/L (136-145); Total Protein 7.7 gm/dl (6.0-8.3)
--- NOTE | 2025-07-20 20:16 | XRay Report ---
Exam(s): XR KUB EXAM: XR Abdomen, 1 View CLINICAL HISTORY: poss constipation. TECHNIQUE: Frontal supine view of the abdomen/pelvis. COMPARISON: No relevant prior studies available. FINDINGS: Gastrointestinal tract: Mild scattered bowel gas in nondilated small and large bowel throughout the abdomen and pelvis. Mild stool burden in the right colon. No appreciable stool burden in the distal transverse or descending colon. Questionable minimal stool in the rectosigmoid in the pelvis. Bones/joints: No significant abnormality. No acute fracture. IMPRESSION: Nonspecific, nonobstructive bowel gas pattern. Mild stool burden. Electronically signed by: Evan Daly MD 07/20/25 20:15 PM
[2025-07-20] MEDS: MAGNESIUM SULFATE / D5W 1 GM/100 ML BAG IV SCH (21:05)
[2025-07-20] MEDS: MoRPHine SULFATE 10 MG/ML CARP/VIAL IV STA (21:05)
[2025-07-20] MEDS: SODIUM CHLORIDE 0.9% 500 ML IV ONE ×2 (22:12→23:31)
--- NOTE | 2025-07-20 22:40 | History & Physical Report ---
Date of Service July 20, 2025 Assessment & Plan (1) Right sided abdominal pain: (2) Tachycardia: (3) Hypertension: (4) Type 2 diabetes mellitus: (5) Hypothyroidism: Plan 55yo female presenting with abdominal pain, elevated blood pressure #Right sided abdominal pain / Constipation - patient with normal LFTs, lipase, normal WBC count. She did have mildly elevated lactate level at 2.8 which cleared to 1.6 after IVF given in the ER. KUB with mild stool burden. Suspect patient's symptoms secondary to constipation, possible gastroparesis contributing. Patient states that she had a motility study years ago at an outside facility which suggested delayed gastric emptying -Admit to medical with telemetry -IVF with LR at 100mL/hr x 2L -Encourage ambulation to promote bowel activity -Magnesium = 1.2 - repletion with repeat level in AM -Miralax 17gm po TID -Dulcolax suppository PRN constipation -Bentyl 20mg po QID PRN -Tramadol 50mg po q4 hours - would not discharge patient with this or opioid medications #Nausea -Phenergan 6.25mg IV q 6 hours PRN -Zofran 4mg IV q 6 hours PRN -Reglan 5mg po qACHS #Tachycardia - patient with sinus tachycardia, ongoing despite 2L IVF. Saturation is WNL. -Continue IVF -Telemetry monitoring -Electrolyte repletion -Check TSH #Hypertension - patient currently not taking any medication for hypertension -Monitor -If persistently elevated would initiate anti-hypertesnive agent #GERD -Protonix 40mg po daily #Hypothyroidism - elevated TSH during last admission at 20. Patient states that [facility] in jail she was not receiving the appropriate dose of Synthroid. Her Synthroid has since been increased to 200mcg daily. Has been appx 8 weeks -Continue Synthroid 200mcg po daily -Check TSH in AM #Diabetes -Lantus 10u BID -ISS -Goal blood sugar 110 - 140 #Anxiety / Mental Health -Hydroxyzine 50mg po q afternoon as needed and 1oo mg po qHS -Continue Duloxetine 30mg po qAM -Continue Gabapentin 300mg po AMHS #UTI - patient with bacteriuria, has developed increased urinary frequency over the last day -Ceftriaxone 2gm IV daily Ppx - Lovenox Code -Full History of Present Illness Chief Complaint: right sided abdominal pain Primary Care Provider: Timoteo Muniz MD Daiana Bhandari is a 55yo female with history of DM, Hypothyroidism, GERD presenting with several complaints. She states that she had and episode today where she felt her heartbeat in her ears and had double vision - this has happened four times in the past. She is concerned that this occurs when her blood pressure is spiking but has not checked her pressure during the time she is having the symptoms. She is also complaining of right sided abdominal pain and distention for the last three days as well as nausea that started today with non-bloody/non-bilious emesis. She feels overall constipated but has alternating constipation and diarrhea. Has had a colonoscopy performed at [facility] (unfortunately do not have access to these records). Patient states she had polyps. Patient is requesting that she not have a CT as she has had multiple in the past for similar pain and wishes to limit radiation exposure. In the ER she is markedly hypertensive on arrival, tachycardic ER Course: NSS x 2L Phenergan 12.5mg IV Zofran 4mg IV Magnesium 2gm IV Morphine 6mg IV Tramadol 50mg Allergies Allergy/AdvReac Type Severity Reaction Status Date / Time nabumetone Allergy Intermediate swelling Verified 05/24/25 20:23 NSAIDS (Non-Steroidal Allergy Intermediate SWELLING Verified 05/24/25 20:23 Anti-Inflamma acetaminophen AdvReac Intermediate VOMITING, Verified 05/24/25 20:23 RASH--RAISES LIVER ENZYMES Home Medications Medication Instructions Recorded Confirmed Type blood sugar diagnostic (OneTouch #100 ea 12/01/22 10/19/23 Rx Verio test strips) blood sugar diagnostic (OneTouch #100 ea 04/29/23 10/19/23 Rx Verio test strips) lancets 33 gauge (OneTouch Delica #100 ea 04/29/23 10/19/23 Rx Plus Lancet) pen needle, diabetic 32 gauge x #100 ea 04/29/23 10/19/23 Rx 5/32" (Pen Needle) gabapentin 300 mg capsule 300 mg PO AMHS 10/19/23 07/20/25 History duloxetine 30 mg capsule,delayed 30 mg PO QAM 01/07/24 07/20/25 History release acetaminophen 325 mg tablet 650 mg PO TID PRN Pain 05/05/25 07/20/25 History (Tylenol) albuterol sulfate 2.5 mg/3 mL 2.5 mg inhalation TID PRN 05/05/25 07/20/25 History (0.083 %) solution for nebulization Shortness Of Breath Or Wheezing dicyclomine 10 mg capsule 10 mg PO HS PRN ABD DISCOMFORT 05/05/25 07/20/25 History sumatriptan succinate 50 mg tablet 50 mg PO DIRECTED PRN MIGRAINE 05/05/25 07/20/25 History (Imitrex) HEADACHES calcium carbonate (Tums) 1,500 mg (7.5 x 200 mg calcium 05/26/25 07/20/25 Rx (500 mg)) PO DAILY #30 tabs ergocalciferol (vitamin D2) 1,250 1,250 mcg PO Q7D@0900 #4 caps 05/26/25 07/20/25 Rx mcg (50,000 unit) capsule hydroxyzine pamoate 50 mg capsule 50 mg PO HS #30 caps 05/26/25 07/20/25 Rx insulin aspart U-100 100 unit/mL 1 sliding scale dose subcut 05/26/25 07/20/25 Rx (3 mL) subcutaneous pen USEASDIRECTD #15 mL levothyroxine 200 mcg tablet 200 mcg PO DAILYBB #30 tabs 05/26/25 07/20/25 Rx (Synthroid) omeprazole 20 mg capsule,delayed 20 mg PO BID #60 caps 05/26/25 07/20/25 Rx release pen needle, diabetic 32 gauge x #100 ea 05/26/25 Rx 5/32" (Pen Needle) polyethylene glycol 3350 17 17 g PO DAILY Constipation #119 05/26/25 07/20/25 Rx gram/dose oral powder (Miralax) grams insulin glargine 100 unit/mL (3 28 unit subcut HS 07/20/25 07/20/25 History mL) subcutaneous pen Past Med/Surg History Problem List Elevated lactic acid level (Acute) Hypertension (Acute) Hypomagnesemia (Acute) Acute dehydration (Acute) Tachycardia (Acute) Vomiting (Acute) Right sided abdominal pain (Acute) Lumbar back pain DIANE (acute kidney injury) (Acute) Type 2 diabetes mellitus IBS (irritable bowel syndrome) (Chronic) Hypothyroidism (Chronic) Medical History Abdominal pain Diabetes Depression Endometriosis Nausea and vomiting Surgical History H/O: hysterectomy with BSO History of cholecystectomy History of appendectomy H/O hemorrhoidectomy H/O laparoscopy for SBO; had lysis of adhesions H/O wisdom tooth extraction Social History Smoking Status: Current every day smoker Tobacco Type: Cigarettes Cigarettes Per Day: 3; Second Hand Exposure: No; Do You Dip or Chew Tobacco: No; Hx Alcohol Use: No Hx Substance Use: No Preferred Language: [place] Communication Ability: Effective Teacher Of Family And Consumer Science Required: No Beliefs That Will Affect Care: None marital status: Single Current Living Situation: Alone Current Living Situation Comment: father staying w/ pt and grandson How many Children do You have: 1 Feels Safe at Home: Yes Assistive Devices: Cane and Walker Review of Systems Review of Systems: All systems reviewed & are unremarkable except as noted in HPI & below Physical Exam Physical Exam: General: patient resting comfortably, NAD, non-toxic in appearance, AA&O x 4 Skin: warm, dry, intact, no rashes or lesions HEENT: NC/AT, PERRL, EOMI, anicteric sclera, conjunctiva without injection, external ear normal to inspection and nontender, nares patent, moist mucus membranes, dentition intact, no oropharyngeal lesions, neck supple, trachea midline, no LAD, no thyromegaly, no JVD Heart: +S1/S2, regular, no m/r/g Lungs: equal air entry bilaterally, no rales/rhonchi/wheezes Abd: +BS diminished, abdomen mildly distended, tenderness diffusely with no rebound or guarding Ext: warm, 2+ pulses in UE/LE bilaterally, no clubbing/cyanosis or edema, house arrest bracelet on left ankle Neuro: nonfocal, patient AA&O x 4, speech intact, no facial droop, moving all extremities on command with equal strength 5/5 Results & Data Results & Data Vital Signs (Past 12 Hours) Vital Signs Temp Pulse Resp BP Pulse Ox O2 Del Method 07/20/25 21:23 117 H 20 135/99 96 07/20/25 20:12 138 H 20 158/104 H 97 07/20/25 19:30 131 H 07/20/25 18:59 36.5 C 140 H 20 192/146 H 95 Room Air Laboratory Results Laboratory Results WBC 10.10 K/ul (4.8-10.8) 07/20/25 19:06 RBC 4.84 M/uL (4.20-5.40) 07/20/25 19:06 Hgb 14.2 g/dL (12.0-16.0) 07/20/25 19:06 Hct 40.8 % (37.0-47.0) 07/20/25 19:06 MCV 84.3 fL (80.0-100.0) 07/20/25 19:06 MCH 29.3 pg (25.0-34.0) 07/20/25 19:06 MCHC 34.8 g/dL (32.0-36.0) 07/20/25 19:06 RDW Std Deviation 41.8 fL (36.4-46.3) 07/20/25 19:06 RDW Coeff of Adolfo 13.5 % (11.5-14.5) 07/20/25 19:06 Plt Count 262 K/uL (130-400) 07/20/25 19:06 MPV 9.6 fL (9.4-12.4) 07/20/25 19:06 Immature Gran % (Auto) 0.5 % 07/20/25 19:06 Neut % (Auto) 77.8 % 07/20/25 19:06 Lymph % (Auto) 15.6 % 07/20/25 19:06 [place] % (Auto) 5.2 % 07/20/25 19:06 Eos % (Auto) 0.1 % 07/20/25 19:06 Baso % (Auto) 0.8 % 07/20/25 19:06 Neut # (Auto) 7.85 K/uL (1.40-6.50) H 07/20/25 19:06 Lymph # (Auto) 1.58 K/uL (1.20-3.40) 07/20/25 19:06 [place] # (Auto) 0.53 K/uL (0.11-0.59) 07/20/25 19:06 Eos # (Auto) 0.01 K/uL (0.00-0.50) 07/20/25 19:06 Baso # (Auto) 0.08 K/uL (0.00-0.20) 07/20/25 19:06 Immature Gran # (Auto) 0.05 K/uL (0.01-0.20) 07/20/25 19:06 Sodium 136 mmol/L (136-145) 07/20/25 19:06 Potassium 4.0 mmol/L (3.5-5.1) 07/20/25 19:06 Chloride 100 mmol/L (98-107) 07/20/25 19:06 Carbon Dioxide 24 mmol/L (21-32) 07/20/25 19:06 Anion Gap 12 (3-11) H 07/20/25 19:06 BUN 18 mg/dl (6-23) 07/20/25 19:06 Creatinine 1.12 mg/dl (0.6-1.2) 07/20/25 19:06 Est Cr Clr Drug Dosing 60.6 ml/min 07/20/25 19:06 eGFR 58.44 07/20/25 19:06 BUN/Creatinine Ratio 16.1 (10-20) 07/20/25 19:06 Glucose 251 mg/dl (70-99(Fasting)) H 07/20/25 19:06 Lactate 1.6 mmol/L (0.4-2.0) 07/20/25 22:51 Calcium 9.1 mg/dl (8.6-10.3) 07/20/25 19:06 Magnesium 1.2 mg/dl (1.7-2.4) L 07/20/25 19:06 Total Bilirubin 0.4 mg/dl (0.2-1.0) 07/20/25 19:06 AST 14 U/L (13-39) 07/20/25 19:06 ALT 21 U/L (7-52) 07/20/25 19:06 Alkaline Phosphatase 102 U/L (34-104) 07/20/25 19:06 Troponin I High Sens 5.0 pg/ml (0-14) 07/20/25 19:06 Total Protein 7.7 gm/dl (6.0-8.3) 07/20/25 19:06 Albumin 4.2 gm/dl (3.4-5.0) 07/20/25 19:06 Globulin 3.5 gm/dl (2.5-4.0) 07/20/25 19:06 Albumin/Globulin Ratio 1.2 (0.9-2) 07/20/25 19:06 Lipase 35 U/L (11-82) 07/20/25 19:06 Urine Color Yellow 07/20/25 Unknown Urine Appearance Clear (Clear) 07/20/25 Unknown Urine pH 5.0 (4.5-7.5) 07/20/25 Unknown Ur Specific [place] 1.019 (1.000-1.030) 07/20/25 Unknown Urine Protein 2+ (Negative) H 07/20/25 Unknown Urine Glucose (UA) Trace (Negative) H 07/20/25 Unknown Urine Ketones Negative (Negative) 07/20/25 Unknown Urine Blood 1+ (Negative) H 07/20/25 Unknown Urine Nitrite Negative (Negative) 07/20/25 Unknown Urine Bilirubin Negative (Negative) 07/20/25 Unknown Urine Urobilinogen Negative (Negative) 07/20/25 Unknown Ur Leukocyte Esterase Negative (Negative) 07/20/25 Unknown Urine WBC (Auto) 0-5 /hpf (0-5) 07/20/25 Unknown Urine RBC (Auto) 0-2 /hpf (0-2) 07/20/25 Unknown U Hyaline Cast (Auto) 0-2 /lpf (0-2) 07/20/25 Unknown U Epithel Cells (Auto) 6-10 /hpf (0-2) H 07/20/25 Unknown Urine Bacteria (Auto) 2+ (None Seen) H 07/20/25 Unknown Urine Comment 07/20/25 Unknown Impressions Chest X-Ray 07/20/25 19:07 Chest radiograph, one view History: Chest pain Comparison: None Findings: Single AP view of the chest performed. No focal consolidation or pleural effusion. No pneumothorax. The cardiomediastinal silhouette is within normal limits. Normal pulmonary vascularity. No evidence for lymphadenopathy. No visualized bony or soft tissue abnormality. Impression: Normal chest radiograph Electronically signed by Tk Drummond 07-20-2025 7:48 PM KUB X-Ray 07/20/25 19:19 Exam(s): XR KUB EXAM: XR Abdomen, 1 View CLINICAL HISTORY: poss constipation. TECHNIQUE: Frontal supine view of the abdomen/pelvis. COMPARISON: No relevant prior studies available. FINDINGS: Gastrointestinal tract: Mild scattered bowel gas in nondilated small and large bowel throughout the abdomen and pelvis. Mild stool burden in the right colon. No appreciable stool burden in the distal transverse or descending colon. Questionable minimal stool in the rectosigmoid in the pelvis. Bones/joints: No significant abnormality. No acute fracture. IMPRESSION: Nonspecific, nonobstructive bowel gas pattern. Mild stool burden. Electronically signed by: Evan Daly MD 07/20/25 20:15 PM Code Status & VTE Plan VTE Prophylaxis Plan VTE Prophylaxis will be ordered: Yes PG Care Time/CCT Total # of Minutes Spent Total Time Spent with Patient: Total time spent is greater than 50% in coordination of care (as documented) at patient's floor/unit and/or counseling patient: Coding Level of Care Code 45469 INT INP/OBS CARE 3/75MIN Diagnoses Right sided abdominal pain R10.9 Tachycardia R00.0 Hypertension I10 Hypertension type: unspecified Type 2 diabetes mellitus E11.9 Hypothyroidism E03.9 Hypothyroidism type: unspecified (3) Hypertension Hypertension type: unspecified Qualified Code(s): I10 - Essential (primary) hypertension (5) Hypothyroidism Hypothyroidism type: unspecified Qualified Code(s): E03.9 - Hypothyroidism, unspecified
[2025-07-21] MEDS ORDERED: DEXTROSE 50% 50 ML SYRINGE IV PRN (00:24)
[2025-07-21] MEDS ORDERED: ALBUTEROL 0.083% NEBU SOLN 3 ML VIAL INH PRN (00:24)
[2025-07-21] MEDS ORDERED: GLUCOSE 40% GEL 15 GM TUBE PO PRN (00:24)
[2025-07-21] MEDS ORDERED: GLUCAGON FOR INJ 1 MG VIAL SQ PRN (00:24)
[2025-07-21] MEDS ORDERED: CARBOHYDRATES FOR HYPOGLYCEMIA PO PRN (00:24)
[2025-07-21] MEDS ORDERED: PROMETHAZINE 6.25 MG/50.25 ML BAG IV PRN (00:24)
[2025-07-21] MEDS ORDERED: GLUCOSE 10 TAB/TUBE PO PRN (00:24)
[2025-07-21] MEDS ORDERED: MELATONIN 3 MG TAB PO PRN (00:24)
[2025-07-21] MEDS: LACTATED RINGER'S 1,000 ML IV SCH (00:51)
[2025-07-21] MEDS: MAGNESIUM SULFATE / D5W 1 GM/100 ML BAG IV SCH (01:00)
[2025-07-21] MEDS: cefTRIAXone SODIUM 2,000 MG/50 ML BAG IV STA (01:05)
[2025-07-21 01:30] LABS: Thyroid Stimulating Hormone 0.493 uIu/ml (0.300-4.500)
[2025-07-21] MEDS ORDERED: INFLUENZA VACC TS2025-26(6m+)/PF (IIV3) 0.5mL Syr IM ONE (01:37)
[2025-07-21] MEDS: LEVOTHYROXINE SODIUM 200 MCG TABLET PO SCH (06:05)
[2025-07-21 07:16] LABS: Hematocrit (blood only) 36.3 % (37.0-47.0); Hemoglobin 12.1 g/dL (12.0-16.0); Mean Corpuscular Hemoglobin 28.9 pg (25.0-34.0); Mean Corpuscular Volume 86.8 fL (80.0-100.0); Platelet Count 208 K/uL (130-400); RDW Standard Deviation 43.8 fL (36.4-46.3); Red Blood Count 4.18 M/uL (4.20-5.40); White Blood Count 5.75 K/ul (4.8-10.8)
[2025-07-21 07:30] LABS: Anion Gap 5.0 (3-11); Blood Urea Nitrogen 18.0 mg/dl (6-23); Calcium 8.0 mg/dl (8.6-10.3); Carbon Dioxide 29.0 mmol/L (21-32); Chloride 104.0 mmol/L (98-107); Creatinine Clr Calc Pharmacy 70.2 ml/min; Glucose 248.0 mg/dl (70-99(Fasting)); Magnesium 2.3 mg/dl (1.7-2.4); Potassium 3.9 mmol/L (3.5-5.1); Sodium 138.0 mmol/L (136-145)
[2025-07-21] MEDS: POLYETHYLENE (MIRALAX) 17 GM PACK PO SCH (08:50)
[2025-07-21] MEDS: ENOXAPARIN INJ 40 MG/0.4 ML SYR SQ SCH (08:58)
[2025-07-21] MEDS: METOCLOPRAMIDE HCL 5 MG TABLET PO SCH (08:58)
[2025-07-21] MEDS: INSULIN ASPART PER UNIT CHARGE SC SCH (08:58)
[2025-07-21] MEDS: GABAPENTIN 300 MG CAP PO SCH (08:59)
[2025-07-21] MEDS: LANTUS PER UNIT CHARGE SQ SCH (08:59)
--- NOTE | 2025-07-21 09:47 | Electrocardiogram Report ---
Test Reason : Blood Pressure : */* mmHG Vent. Rate : 136 BPM Atrial Rate : 136 BPM P-R Int : 124 ms QRS Dur : 72 ms QT Int : 314 ms P-R-T Axes : 60 47 66 degrees QTcB Int : 472 ms Sinus tachycardia Nonspecific ST abnormality Abnormal ECG When compared with ECG of 24-May-2025 15:04, Nonspecific T wave abnormality no longer evident in Anterolateral leads Confirmed by Fantasma Arroyo ([id number]) on 07/21/2025 9:47:13 AM Referred By: REFERRED SELF Confirmed By: Fantasma Arroyo
[2025-07-21] MEDS: HYDROCODONE/ACETAMINOPHEN 7.5/325MG TAB PO PRN (17:11)
--- NOTE | 2025-07-21 17:22 | XRay Report ---
Abdominal radiograph, one view History: Abdominal pain Comparison: 05/23/2025 Findings: Single AP view of the abdomen performed. The bowel gas pattern appears nonobstructive. Moderate colonic stool. No pneumatosis or portal venous gas. No abnormal calcifications project over the abdomen. No acute abnormality of the bony structures. Impression: Nonobstructive bowel gas pattern Electronically signed by Tk Drummond 07-21-2025 5:21 PM
--- NOTE | 2025-07-21 19:05 | Hospitalist Progress Note ---
Date of Service July 21, 2025 Assessment & Plan (1) Right sided abdominal pain: (2) Tachycardia: (3) Hypertension: (4) Type 2 diabetes mellitus: (5) Hypothyroidism: Plan 55yo female presented with right-sided abdominal pain and markedly elevated blood pressures. #Right sided abdominal pain - -etiology uncertain -previous CT a/p in 05/2025 was wnl -admit KUB x-ray with mild-mod stool loading -repeat KUB x-ray today shows about the same amount of stool except the right- sided stool has moved into the transverse colon -despite her pain she is eating all meals without vomiting -still with nausea -previous LFTs and lipase were wnl -she has had a previous appendectomy & cholecystectomy -pain 2nd to right-sided pyelonephritis? -constipation? -biliary colic? -other? -plan: -add norco prn pain control -cont IVF -repeat u/a and urine cx -cont rocephin to cover the urinary tract -repeat LFTs and lipase in am -consider MRCP since symptoms remind her of when she had biliary colic years ago prior to cholecystectomy #Nausea - -see discussion above -anti-emetics prn and continue scheduled reglan due to remote h/o gastroparesis -watch for EPS #Tachycardia - -resolved -suspected BP and HR elevations at presentation were due to severe abd pain -both BP and HR have normalized -H/H stable -TSH wnl #Hypertension - -BPs have largely normalized -cont to monitor -she is not on anti-hypertensive meds #GERD - -cont Protonix 40mg po daily #Hypothyroidism - -elevated TSH during last admission in 05/2025 at 20 -Patient stated that while in [facility] she was not receiving the appropriate dose of Synthroid -Her Synthroid has since been increased to 200mcg daily -Continue Synthroid 200mcg po daily -TSH now wnl #Diabetes - -cont Lantus 10u BID -cont novolog SSI #Anxiety / Mental Health - -Hydroxyzine 50mg po q afternoon as needed and 100 mg po qHS -Continue Duloxetine 30mg po qAM -Continue Gabapentin 300mg po AMHS #UTI - -suspected -see discussion above -Ceftriaxone 2gm IV daily DVT prevention - Lovenox 40mg daily Admission and Anticipated Discharge Date Admission Date: July 20, 2025 Subjective patient continues to have RUQ and RLQ abd pain some nausea, but eating 100% of meals passing minimal flatus no stool she feels constipated she had her gall bladder out in the past and some of her pain does remind her of when she had biliary pain urine is slightly foul-smelling no dysuria Review of Systems Review of Systems: gen - no fevers or chills; very tired -sleeping alot cv - no chest pain pulm - no dyspnea GI - no blood per rectum Physical Exam Physical Exam: gen - lying comfortably in bed, NAD, nontoxic mouth - MMM neck - no JVD heart - RRR, s1 s2, no murmur lungs - CTA b/l abd - soft, tender RUQ and RLQ to palpation, no peritoneal signs; ND, BS+, no HSM ext - no edema, pulses 2+ b/l; large mechanical ankle bracelet on left ankle psych - a/o x 3 Results & Data Results & Data Vital Signs (Past 12 Hours) Vital Signs Temp Pulse Pulse Resp BP Pulse Ox O2 Del Method 07/21/25 15:58 36.6 C 86 20 117/75 94 Room Air 07/21/25 14:42 92 H 07/21/25 12:05 36.4 C L 86 16 119/71 93 Room Air 07/21/25 07:51 36.7 C 93 H 20 155/86 H 92 Room Air 07/21/25 07:36 92 H Laboratory Results Laboratory Results - last 24 hr 07/20/25 07/20/25 07/20/25 19:06 19:07 22:51 WBC 10.10 RBC 4.84 Hgb 14.2 Hct 40.8 MCV 84.3 MCH 29.3 MCHC 34.8 RDW Std Deviation 41.8 RDW Coeff of Adolfo 13.5 Plt Count 262 MPV 9.6 Immature Gran % (Auto) 0.5 Neut % (Auto) 77.8 Lymph % (Auto) 15.6 [place] % (Auto) 5.2 Eos % (Auto) 0.1 Baso % (Auto) 0.8 Neut # (Auto) 7.85 H Lymph # (Auto) 1.58 [place] # (Auto) 0.53 Eos # (Auto) 0.01 Baso # (Auto) 0.08 Immature Gran # (Auto) 0.05 Sodium 136 Potassium 4.0 Chloride 100 Carbon Dioxide 24 Anion Gap 12 H BUN 18 Creatinine 1.12 Est Cr Clr Drug Dosing 60.6 eGFR 58.44 BUN/Creatinine Ratio 16.1 Glucose 251 H POC Glucose Lactate 2.8 H* 1.6 Calcium 9.1 Phosphorus Magnesium 1.2 L Total Bilirubin 0.4 AST 14 ALT 21 Alkaline Phosphatase 102 Troponin I High Sens 5.0 Total Protein 7.7 Albumin 4.2 Globulin 3.5 Albumin/Globulin Ratio 1.2 Lipase 35 TSH 0.493 Urine Color Urine Appearance Urine pH Ur Specific [place] Urine Protein Urine Glucose (UA) Urine Ketones Urine Blood Urine Nitrite Urine Bilirubin Urine Urobilinogen Ur Leukocyte Esterase Urine WBC (Auto) Urine RBC (Auto) U Hyaline Cast (Auto) U Epithel Cells (Auto) Urine Bacteria (Auto) Urine Comment 07/20/25 07/21/25 07/21/25 Unknown 01:18 06:25 WBC 5.75 RBC 4.18 L Hgb 12.1 Hct 36.3 L MCV 86.8 MCH 28.9 MCHC 33.3 RDW Std Deviation 43.8 RDW Coeff of Adolfo 13.8 Plt Count 208 MPV 10.1 Immature Gran % (Auto) Neut % (Auto) Lymph % (Auto) [place] % (Auto) Eos % (Auto) Baso % (Auto) Neut # (Auto) Lymph # (Auto) [place] # (Auto) Eos # (Auto) Baso # (Auto) Immature Gran # (Auto) Sodium 138 Potassium 3.9 Chloride 104 Carbon Dioxide 29 Anion Gap 5 BUN 18 Creatinine 0.97 Est Cr Clr Drug Dosing 70.2 eGFR 69.44 BUN/Creatinine Ratio 18.6 Glucose 248 H POC Glucose 218 H Lactate Calcium 8.0 L Phosphorus 4.0 Magnesium 2.3 Total Bilirubin AST ALT Alkaline Phosphatase Troponin I High Sens Total Protein Albumin Globulin Albumin/Globulin Ratio Lipase TSH Urine Color Yellow Urine Appearance Clear Urine pH 5.0 Ur Specific [place] 1.019 Urine Protein 2+ H Urine Glucose (UA) Trace H Urine Ketones Negative Urine Blood 1+ H Urine Nitrite Negative Urine Bilirubin Negative Urine Urobilinogen Negative Ur Leukocyte Esterase Negative Urine WBC (Auto) 0-5 Urine RBC (Auto) 0-2 U Hyaline Cast (Auto) 0-2 U Epithel Cells (Auto) 6-10 H Urine Bacteria (Auto) 2+ H Urine Comment 07/21/25 07/21/25 08:16 16:53 WBC RBC Hgb Hct MCV MCH MCHC RDW Std Deviation RDW Coeff of Adolfo Plt Count MPV Immature Gran % (Auto) Neut % (Auto) Lymph % (Auto) [place] % (Auto) Eos % (Auto) Baso % (Auto) Neut # (Auto) Lymph # (Auto) [place] # (Auto) Eos # (Auto) Baso # (Auto) Immature Gran # (Auto) Sodium Potassium Chloride Carbon Dioxide Anion Gap BUN Creatinine Est Cr Clr Drug Dosing eGFR BUN/Creatinine Ratio Glucose POC Glucose 189 H 162 H Lactate Calcium Phosphorus Magnesium Total Bilirubin AST ALT Alkaline Phosphatase Troponin I High Sens Total Protein Albumin Globulin Albumin/Globulin Ratio Lipase TSH Urine Color Urine Appearance Urine pH Ur Specific [place] Urine Protein Urine Glucose (UA) Urine Ketones Urine Blood Urine Nitrite Urine Bilirubin Urine Urobilinogen Ur Leukocyte Esterase Urine WBC (Auto) Urine RBC (Auto) U Hyaline Cast (Auto) U Epithel Cells (Auto) Urine Bacteria (Auto) Urine Comment Diagnostic Findings KUB X-Ray 07/21/25 15:36 Abdominal radiograph, one view History: Abdominal pain Comparison: 05/23/2025 Findings: Single AP view of the abdomen performed. The bowel gas pattern appears nonobstructive. Moderate colonic stool. No pneumatosis or portal venous gas. No abnormal calcifications project over the abdomen. No acute abnormality of the bony structures. Impression: Nonobstructive bowel gas pattern Electronically signed by Tk Drummond 07-21-2025 5:21 PM PG Care Time/CCT Total # of Minutes Spent Total Time Spent with Patient: Total time spent is greater than 50% in coordination of care (as documented) at patient's floor/unit and/or counseling patient: Coding Level of Care Code 73585 SUB INP/OBS CARE 3/50MIN Diagnoses Right sided abdominal pain R10.9 Tachycardia R00.0 Hypertension I10 Hypertension type: unspecified Type 2 diabetes mellitus E11.9 Hypothyroidism E03.9 Hypothyroidism type: unspecified (3) Hypertension Hypertension type: unspecified Qualified Code(s): I10 - Essential (primary) hypertension (5) Hypothyroidism Hypothyroidism type: unspecified Qualified Code(s): E03.9 - Hypothyroidism, unspecified
[2025-07-21] MEDS: cefTRIAXone SODIUM 2,000 MG/50 ML BAG IV SCH (20:44)
[2025-07-21] MEDS: DICYCLOMINE HCL 10 MG CAP PO PRN (20:51)
[2025-07-22 08:24] LABS: Alanine Aminotransferase 149.0 U/L (7-52); Albumin Globulin Ratio 1.4 (0.9-2); Albumin Level 3.8 gm/dl (3.4-5.0); Alkaline Phosphatase 138.0 U/L (34-104); Anion Gap 7.0 (3-11); Bilirubin,Total 0.6 mg/dl (0.2-1.0); Blood Urea Nitrogen 21.0 mg/dl (6-23); Calcium 8.5 mg/dl (8.6-10.3); Carbon Dioxide 29.0 mmol/L (21-32); Chloride 102.0 mmol/L (98-107); Creatinine Clr Calc Pharmacy 63.6 ml/min; Globulin 2.7 gm/dl (2.5-4.0); Glucose 107.0 mg/dl (70-99(Fasting)); Lipase 23.0 U/L (11-82); Potassium 3.9 mmol/L (3.5-5.1); Sodium 138.0 mmol/L (136-145); Total Protein 6.5 gm/dl (6.0-8.3)
[2025-07-22] MEDS ORDERED: LORazepam 0.5 MG TAB PO ONE (13:00)
[2025-07-22] MEDS: LORazepam 0.5 MG TAB PO ONE (15:41)
--- NOTE | 2025-07-22 17:11 | Magnetic Resonance Report ---
MRCP Without Contrast CLINICAL HISTORY: Abdominal pain TECHNIQUE: Images were acquired without intravenous gadolinium contrast through the upper abdomen Comparison study: MRCP from 02/16/2024 FINDINGS: Biliary Tree: Dilated CBD up to 10 mm, similar to prior. Mild intrahepatic biliary ductal dilatation again seen Pancreas: No pancreatic duct dilatation. No visualized cyst. Liver: Normal noncontrast appearance. Gallbladder: Cholecystectomy Spleen: Normal Kidneys: Normal Adrenal glands: Normal Bowel: No normally dilated bowel. Lymph nodes: No pathologic lymph adenopathy. Blood vessels: No aortic aneurysm. Lung bases: Grossly clear Bones and soft tissues: Unremarkable Mesentery and abdominal wall: Unremarkable Ascites: None IMPRESSION: No acute findings or significant change. Cholecystectomy with dilated biliary system, likely related to reservoir effect, similar to 02/16/2024 Electronically signed by Tk Drummond 07-22-2025 5:10 PM
--- NOTE | 2025-07-23 05:22 | Hospitalist Progress Note ---
Date of Service July 22, 2025 Assessment & Plan (1) Right sided abdominal pain: (2) Abnormal LFTs: (3) Tachycardia: (4) Hypertension: (5) Type 2 diabetes mellitus: (6) Hypothyroidism: (7) Hypomagnesemia: (8) Bacteriuria: Plan 55yo female presented with right-sided abdominal pain and markedly elevated blood pressures. #Right sided abdominal pain with abnormal LFTs - -etiology uncertain -previous CT a/p in 05/2025 was wnl; at time of this admission she declined a repeat CT due to concerns for radiation as she has had numerous CTs in the last year -admit KUB x-ray with mild-mod stool loading -repeat KUB x-ray 07/21 showed about the same amount of stool except the right- sided stool had moved into the transverse colon -despite her c/o pain she has been eating all meals without vomiting -still with nausea at times -previous LFTs and lipase were wnl however today her ast, alt, and alk phos all laura -she has had a previous appendectomy & cholecystectomy -pain 2nd to right-sided pyelonephritis? -constipation? -biliary colic? -other? -due to the abnormal LFTs and RUQ pain elected to obtain MRCP today --> no evidence of choledocholithiasis or other abnormalities to account for her pain -plan: -treat presumptively for UTI/pyelo -- cont rocephin; can likely convert to PO abx tomorrow -repeat LFTs in am tomorrow -will obtain HepA, HepB, HepC serology along with EBV serology #Nausea - -see discussion above -anti-emetics prn -would stop the reglan scheduled to see if her vomiting returns off the med #Tachycardia - -resolved -suspected BP and HR elevations at presentation were due to severe abd pain -both BP and HR normalized quickly -H/H stable -TSH wnl #Hypertension - -BPs have largely normalized without intervention -cont to monitor -she is not on anti-hypertensive meds #GERD - -cont Protonix 40mg po daily #Hypothyroidism - -elevated TSH during last admission in 05/2025 at 20 -Patient stated that while in correction she was not receiving the appropriate dose of Synthroid -Her Synthroid has since been increased to 200mcg daily -Continue Synthroid 200mcg po daily -TSH now wnl #Diabetes - -cont Lantus 10u BID -cont novolog SSI #Anxiety / Mental Health - -Hydroxyzine 50mg po q afternoon as needed and 100 mg po qHS -Continue Duloxetine 30mg po qAM -Continue Gabapentin 300mg po AMHS #bacteriuria / UTI / ?pyelo on right - -urine cx negative, but did have 2+ bacteria on admission u/a -remains on Ceftriaxone 2gm IV daily -since no other pathology found consider presumptive Rx for UTI / right-sided pyelo DVT prevention - Lovenox 40mg daily re-eval tomorrow -- d/c home then? of note - the [facility] parole office came to remove the ankle bracelet in order to have her MRCP resident medical officer told nursing staff that at time of discharge the parole office is to be contacted before she is released Admission and Anticipated Discharge Date Admission Date: July 20, 2025 Subjective patient continues to have right-sided abd pain although it is better today vs yesterday same location - RUQ, with radiation to the right lower quadrant, and some radiat ion out to the right flank no vomiting despite the above eating 100% of meals sleeping much of the day in bed staff report she is declining to take miralax although she has c/o constipation earlier in the admission tele overnight wnl Review of Systems Review of Systems: gen - no fevers or chills cv - no orthopnea, no chest pain pulm - no dyspnea Physical Exam Physical Exam: gen - lying flat comfortably in bed, NAD, nontoxic mouth - MMM neck - no JVD heart - RRR, s1 s2, no murmur lungs - CTA b/l abd - soft, tender RUQ and RLQ to palpation - mild, and improved vs yesterday's exam; no peritoneal signs; ND, BS+, no HSM ext - no edema, pulses 2+ b/l; large mechanical ankle bracelet on left ankle psych - a/o x 3 Results & Data Results & Data Vital Signs (Past 12 Hours) Vital Signs Temp Pulse Pulse Resp BP Pulse Ox O2 Del Method 07/22/25 15:39 36.9 C 87 16 114/66 93 Room Air 07/22/25 14:20 91 H 07/22/25 11:12 36.9 C 83 16 139/82 94 Room Air 07/22/25 07:35 36.6 C 81 16 132/80 95 Room Air Laboratory Results Laboratory Results - last 24 hr 07/22/25 07/22/25 07/22/25 07:31 08:01 11:58 Sodium 138 Potassium 3.9 Chloride 102 Carbon Dioxide 29 Anion Gap 7 BUN 21 Creatinine 1.07 Est Cr Clr Drug Dosing 63.6 eGFR 61.73 BUN/Creatinine Ratio 19.6 Glucose 107 H POC Glucose 137 H 127 H Calcium 8.5 L Total Bilirubin 0.6 AST 96 H ALT 149 H Alkaline Phosphatase 138 H Total Protein 6.5 Albumin 3.8 Globulin 2.7 Albumin/Globulin Ratio 1.4 Lipase 23 Diagnostic Findings Cholangiopancreatography MRI 07/22/25 11:38 MRCP Without Contrast CLINICAL HISTORY: Abdominal pain TECHNIQUE: Images were acquired without intravenous gadolinium contrast through the upper abdomen Comparison study: MRCP from 02/16/2024 FINDINGS: Biliary Tree: Dilated CBD up to 10 mm, similar to prior. Mild intrahepatic biliary ductal dilatation again seen Pancreas: No pancreatic duct dilatation. No visualized cyst. Liver: Normal noncontrast appearance. Gallbladder: Cholecystectomy Spleen: Normal Kidneys: Normal Adrenal glands: Normal Bowel: No normally dilated bowel. Lymph nodes: No pathologic lymph adenopathy. Blood vessels: No aortic aneurysm. Lung bases: Grossly clear Bones and soft tissues: Unremarkable Mesentery and abdominal wall: Unremarkable Ascites: None IMPRESSION: No acute findings or significant change. Cholecystectomy with dilated biliary system, likely related to reservoir effect, similar to 02/16/2024 Electronically signed by Tk Drummond 07-22-2025 5:10 PM PG Care Time/CCT Total # of Minutes Spent Total Time Spent with Patient: Total time spent is greater than 50% in coordination of care (as documented) at patient's floor/unit and/or counseling patient: Coding Level of Care Code 92010 SUB INP/OBS CARE 3/50MIN Diagnoses Right sided abdominal pain R10.9 Abnormal LFTs R79.89 Tachycardia R00.0 Hypertension I10 Hypertension type: unspecified Type 2 diabetes mellitus E11.9 Hypothyroidism E03.9 Hypothyroidism type: unspecified Hypomagnesemia E83.42 Bacteriuria R82.71 (4) Hypertension Hypertension type: unspecified Qualified Code(s): I10 - Essential (primary) hypertension (6) Hypothyroidism Hypothyroidism type: unspecified Qualified Code(s): E03.9 - Hypothyroidism, unspecified
--- NOTE | 2025-07-23 08:00 | Hospitalist Progress Note ---
Date of Service July 23, 2025 Assessment & Plan (1) Right sided abdominal pain: (2) Abnormal LFTs: (3) Tachycardia: (4) Hypertension: (5) Type 2 diabetes mellitus: (6) Hypothyroidism: (7) Hypomagnesemia: (8) Bacteriuria: Plan 55yo female presented with right-sided abdominal pain and markedly elevated blood pressures. #Right sided abdominal pain with abnormal LFTs -etiology uncertain. Does report she was to have repeat gastric emptying study outpatient (reports + study prior) before being incarcerated for parole violation Previous CT a/p in 05/2025 was wnl; at time of this admission she declined a repeat CT due to concerns for radiation as she has had numerous CTs in the last year KUB on admission with mild-mod stool loading Repeat KUB 07/21 with about same amount of stool except right sided stool moved into transverse colon Is s/p iliana and appendectomy and has been eating all meals without vomiting however reports ongoing nausea and need for treatment ?2nd to constipation, biliary colic, pyelo, vs other Ceftriaxone IV continued MRCP obtained 07/22 due to newly elevated LFTs and complaints or pain prior with biliary issues --> MRCP without evidence of choledocholithiasis or other abn to account for pain Hepatitis panel negative, EBV w/ likely prior infection. Monospot negative Continue pain control, antiemetics, bentyl, cymbalta --> cymbalta increased to 30mg BID (reports was on 90mg in the past) Changed to gluten free diet Do have concerns ongoing constipation contributing and had been declining the miralax in days prior. Encouraged her to take and was agreeable to take today. +small BM 07/23 but ongoing PO intake despite sx reported. Encouraged her to also get up/ambulate the halls to help stimulate bowel movement and suspect laying in bed making situation worse Notable her ankle bracelet removed for MRCP and was instructed by security officer it is her responsibilty to call once dischaged to have replaced. ?underlying relationship with issues with law and current sx -- consider further discussion in follow up. Reports outpatient gastric emptying study was to be done in past before incarcerated and can be arranged again outpatient. #Nausea -see discussion above. Ongoing nausea without vomiting. Reglan stopped. No worsening nausea since stopping but if underlying gastric emptying issues ?if needing resumed. Could consider touching base w/ GI if needed. Continue bentyl as above and reports having this at home #Tachycardia - resolved and suspected BP and HR elevations at presentation were due to severe abd pain which normalized quickly. H/h stable and TSH wnl #Hypertension -BPs have largely normalized without intervention -she is not on anti-hypertensive meds -cont to monitor #GERD -cont Protonix 40mg po daily. ?increase to BID #Hypothyroidism -elevated TSH during last admission in 05/2025 at 20 -Patient stated that while in long-term she was not receiving the appropriate dose of Synthroid -Her Synthroid has since been increased to 200mcg daily and has been continued on Synthroid 200mcg daily and TSH wnl now #Diabetes - A1c 8.3 Home meds held and utilizing BSG AC/HS and SSI while inpatient. Continues on Lantus 10u BID #Anxiety / Mental Health - Hydroxyzine 50mg po q afternoon as needed and 100 mg po qHS Continue Gabapentin 300mg po AMHS Continue Duloxetine 30mg po qAM --> increased to 30mg BID as above and reports was on ~90mg in the past #bacteriuria / UTI / ?pyelo on right - -urine cx negative, but did have 2+ bacteria on admission u/a -remains on Ceftriaxone 2gm IV daily -since no other pathology found consider presumptive Rx for UTI / right-sided pyelo and can complete course and convert to PO in AM DVT prevention - Lovenox 40mg daily of note - the [facility] parole office came to remove the ankle bracelet in order to have her MRCP public records officer told nursing staff that at time of discharge the parole office is to be contacted before she is released as above is responsibility of the patient Dispo: continued inpatient stay, hopeful dc in AM 07/24 Admission and Anticipated Discharge Date Admission Date: July 20, 2025 Supervising Physician Co-Signing Physician Notes Attending Attestation - Chart reviewed, care plan d/w COURT [place]. I agree w/ the white components of her documentation. Negro Real MD Subjective Eval this morning, resting in bed. Reports moved bowels, small in nature. Had been declining miralax. Feels nauseated, would like a zofran. Continues with diet per nursing without issue. Discussed any hx IBD, patient declines. She does report she had a gastric emptying study in the past and planned to repeat but then was incarcerated for probation violation. Cigarette hx, denies any recent alcohol, no marijuana use. Discussed trial gluten free diet, continue Bentyl. Is on Cymbalta but only 30mg and discussed increase as is on for mental health and pain -- reports she was on 90mg in the past. Will increase to 30mg BID and can further increase as able as has been on the 30mg dose since this past February. Review of Systems 2 Review of Systems: All systems reviewed & are unremarkable except as noted in HPI & below Physical Exam 2 Physical Exam: General: 55yo female laying on her side upon entry, fatigued but NAD HEENT: head atraumatic, normocephalic, mm slightly dry Resp: even/unlabored, no wheezing/rales, bibasilar crackles, on room air CV: RRR, no significant m/r/g GI: +BS throughout, slight distension, minimal tender L side with reported radiation to the right when palpated, palpable stool L hemicolon, no guarding/rigidity : no lion MSK/Neuro: moves all extremities, not confused Psych: AOx3, cooperative with exam Results & Data Results & Data Vital Signs (Past 12 Hours) Vital Signs Temp Pulse Pulse Resp BP Pulse Ox O2 Del Method 07/23/25 07:54 36.8 C 92 H 18 118/71 94 Room Air 07/23/25 07:42 86 07/23/25 03:36 36.6 C 92 H 20 119/64 94 Room Air 07/23/25 03:33 88 07/22/25 23:40 36.7 C 105 H 20 100/67 96 Room Air Laboratory Results 07/21/25 06:25 07/23/25 07:51 Mg 1.6 TB 0.5 AST 83 ALT 168 ALP 153 Diagnostic Findings Cholangiopancreatography MRI 07/22/25 11:38 MRCP Without Contrast CLINICAL HISTORY: Abdominal pain TECHNIQUE: Images were acquired without intravenous gadolinium contrast through the upper abdomen Comparison study: MRCP from 02/16/2024 FINDINGS: Biliary Tree: Dilated CBD up to 10 mm, similar to prior. Mild intrahepatic biliary ductal dilatation again seen Pancreas: No pancreatic duct dilatation. No visualized cyst. Liver: Normal noncontrast appearance. Gallbladder: Cholecystectomy Spleen: Normal Kidneys: Normal Adrenal glands: Normal Bowel: No normally dilated bowel. Lymph nodes: No pathologic lymph adenopathy. Blood vessels: No aortic aneurysm. Lung bases: Grossly clear Bones and soft tissues: Unremarkable Mesentery and abdominal wall: Unremarkable Ascites: None IMPRESSION: No acute findings or significant change. Cholecystectomy with dilated biliary system, likely related to reservoir effect, similar to 02/16/2024 Electronically signed by Tk Drummond 07-22-2025 5:10 PM PG Care Time/CCT Total # of Minutes Spent Total Time Spent with Patient: Total time spent is greater than 50% in coordination of care (as documented) at patient's floor/unit and/or counseling patient: Coding Level of Care Code 41448 SUB INP/OBS CARE 235MIN Diagnoses Right sided abdominal pain R10.9 Abnormal LFTs R79.89 Tachycardia R00.0 Hypertension I10 Hypertension type: unspecified Type 2 diabetes mellitus E11.9 Hypothyroidism E03.9 Hypothyroidism type: unspecified Hypomagnesemia E83.42 Bacteriuria R82.71 (4) Hypertension Hypertension type: unspecified Qualified Code(s): I10 - Essential (primary) hypertension (6) Hypothyroidism Hypothyroidism type: unspecified Qualified Code(s): E03.9 - Hypothyroidism, unspecified
[2025-07-23 08:49] LABS: Alanine Aminotransferase 168.0 U/L (7-52); Albumin Globulin Ratio 1.3 (0.9-2); Albumin Level 4.0 gm/dl (3.4-5.0); Alkaline Phosphatase 153.0 U/L (34-104); Anion Gap 8.0 (3-11); Bilirubin,Total 0.5 mg/dl (0.2-1.0); Blood Urea Nitrogen 23.0 mg/dl (6-23); Calcium 8.9 mg/dl (8.6-10.3); Carbon Dioxide 29.0 mmol/L (21-32); Chloride 103.0 mmol/L (98-107); Creatinine Clr Calc Pharmacy 69.6 ml/min; Globulin 3.0 gm/dl (2.5-4.0); Glucose 154.0 mg/dl (70-99(Fasting)); Magnesium 1.6 mg/dl (1.7-2.4); Potassium 4.1 mmol/L (3.5-5.1); Sodium 140.0 mmol/L (136-145); Total Protein 7.0 gm/dl (6.0-8.3)
[2025-07-23 09:36] LABS: Hep B Surface Ag with confirm Negative (Negative)
[2025-07-23 09:39] LABS: EBV IgM Antibody Negative; EBV IgM Quant < 10.0 U/mL (< 36.0); EBV Nuclear Antigen IgG Ab Negative; EBV Nuclear Antigen IgG Quant 8.3 U/mL (< 18.0)
[2025-07-23 09:40] LABS: EBV Early Antigen IgG Ab Negative (Negative); EBV Early Antigen IgG Quant < 5.0 U/mL (< 9.0); EBV IgG Antibody Positive; EBV IgG Quant 130.0 U/mL (< 18.0)
[2025-07-23 09:41] LABS: Hep C Ab Rflx HepCQuant RNA Negative (Negative)
[2025-07-23] MEDS: ONDANSETRON 4 MG OD TAB PO STA (11:02)
[2025-07-23 23:04] LABS: Appearance Urine Clear (Clear); Glucose Urine UA Negative (Negative)
[2025-07-24 06:52] LABS: Hematocrit (blood only) 42.0 % (37.0-47.0); Hemoglobin 13.7 g/dL (12.0-16.0); Mean Corpuscular Hemoglobin 28.3 pg (25.0-34.0); Mean Corpuscular Volume 86.8 fL (80.0-100.0); Platelet Count 226 K/uL (130-400); RDW Standard Deviation 42.5 fL (36.4-46.3); Red Blood Count 4.84 M/uL (4.20-5.40); White Blood Count 5.44 K/ul (4.8-10.8)
[2025-07-24 07:28] LABS: Alanine Aminotransferase 127.0 U/L (7-52); Albumin Globulin Ratio 1.4 (0.9-2); Albumin Level 4.0 gm/dl (3.4-5.0); Alkaline Phosphatase 136.0 U/L (34-104); Anion Gap 10.0 (3-11); Bilirubin,Total 0.4 mg/dl (0.2-1.0); Blood Urea Nitrogen 26.0 mg/dl (6-23); Calcium 9.2 mg/dl (8.6-10.3); Carbon Dioxide 28.0 mmol/L (21-32); Chloride 102.0 mmol/L (98-107); Creatinine Clr Calc Pharmacy 55.1 ml/min; Globulin 2.9 gm/dl (2.5-4.0); Glucose 158.0 mg/dl (70-99(Fasting)); Magnesium 1.5 mg/dl (1.7-2.4); Potassium 4.1 mmol/L (3.5-5.1); Sodium 140.0 mmol/L (136-145); Total Protein 6.9 gm/dl (6.0-8.3)
[2025-07-24] MEDS: ONDANSETRON INJ 2 MG/ML 2 ML VIAL IV PRN (08:32)
--- NOTE | 2025-07-24 10:46 | Hospitalist Progress Note ---
"Date of Service July 24, 2025 Assessment & Plan (1) Right sided abdominal pain: (2) Abnormal LFTs: (3) Tachycardia: (4) Bacteriuria: (5) Hypertension: (6) Type 2 diabetes mellitus: (7) Hypothyroidism: (8) Hypomagnesemia: Plan 55 y/o F w/ PMHx IBS, Hypothyroidism, HTN, T2DM, and Lumbar Back Pain who presented with right-sided abdominal pain and markedly elevated blood pressures. #Undifferentiated Rt-sided Abd pain | Abnormal LFTs - S/P lap iliana & lab appendectomy; Pt Reports she had a repeat gastric emptying study scheduled but was then incarcerated d/t parole violation - can be arranged outpatient; Hepatitis panel negative; EBV w/ likely prior infection, Monospot negative; Last BM 07/23 sm -CT 06/10 WNL; Pt declined repeat abd CT d/t radiation therapy -KUB on admission w/ rt sided stool burden; Repeat KUB 07/21 demonstrated stool in transverse colon -07/22 MRCP w/out evidence of choledocholithiasis or other abnormalities to account for pain -Continue IV Ceftriaxone, pt notes PO abx often cause nausea -Continue pain control, antiemetics, bentyl, cymbalta Cymbalta increased to 30mg BID, was on 90mg in past, per pt -Continue MiraLax daily -Stat Dulcolax suppository -Encourage Ambulation -Gluten Free diet -Suspect pain 2nd to constipation, biliary colic, pyelo, vs other Notable: Ankle bracelet removed for MRCP, was instructed by [employer] officer it is her responsibility to call once d/c to have replaced. ?underlying relationship with issues with law and current sx -- consider further discussion in follow up. #Nausea -see discussion above; Ongoing nausea w/out vomiting. -Possible Delayed Gastric Emptying, may be contributing to nausea - Consider GI consult if nausea not improved after BM -Consider reinstating Reglan if nausea persists -Continue Bentyl #bacteriuria / UTI / ?pyelo on right - urine cx negative, but did have 2+ bacteria on admission u/a -remains on Ceftriaxone 2gm IV daily -since no other pathology found consider presumptive Rx for UTI / right-sided pyelo and can complete course and convert to PO in AM #Tachycardia - RESOLVED; likely d/t severe abd pain on presentation, VS normalized quickly; H/H stable and TSH wnl #Hypertension -RESOLVED; Likley d/t severe abd pain on presentation, VS quickly normalized -Continue to monitor #GERD - no acute concerns -Continue Protonix QAM #Hypothyroidism - 07/20 TSH 0.493; was elevated last admission 05/2025 at 20; pt notes was not getting correct dose in long-term, dose now correct w/ wnl tsh #Diabetes - A1c 8.3 Home meds held and utilizing BSG AC/HS and SSI while inpatient. Continues on Lantus 10u BID #Anxiety / Mental Health - Hydroxyzine 50mg po q afternoon as needed and 100 mg po qHS Continue Gabapentin 300mg po AMHS Continue Duloxetine 30mg po qAM --> increased to 30mg BID as above and reports was on ~90mg in the past DVT prevention - Lovenox 40mg daily Dispo: Med/Tele - awaiting BM + improved sx of note - the [facility] parole office came to remove the ankle bracelet in order to have her MRCP [employer] officer told nursing staff that at time of discharge the parole office is to be contacted before she is released as above is responsibility of the patient Admission and Anticipated Discharge Date Admission Date: July 20, 2025 Subjective Pt was laying in bed today in NAD. Pt states that she feels slightly better than yesterday but continues to feel nauseous. She notes that she had not yet had a BM since beginning to take Miralax yesterday. She additionally notes that this is not the first time that she has had issues with constipation and notes that Pt otherwise denies cough, congestion, SOB, CP, palpitations, vomiting, and diarrhea. Pt ambulates without difficulty. Telemetry: Sinus 80s-100s overnight, Sinus 90s in AM. Review of Systems Review of Systems: All systems reviewed & are unremarkable except as noted in Subjective Physical Exam Physical Exam: General: Pt is a 55 y/o obese F in NAD in bed. VS: reviewed, remarkable: HR 96 Skin: Warm and dry; no lesions or ulcerations Respiratory: CTA bilat, no adventitious sounds noted. Chest expansion is full and symmetrical Cardio: RRR no murmurs Abdomen: Round, normoactive BS x4, nontender to palpation MSK: FROM of extremities, no deformities Extremities: no edema Neuro: A&Ox4, cooperative Results & Data Results & Data Vital Signs (Past 12 Hours) Vital Signs Temp Pulse Pulse Resp BP Pulse Ox O2 Del Method 07/24/25 08:50 97.7 F 88 18 122/81 94 Room Air 07/24/25 07:03 85 07/24/25 02:55 98.2 F 92 H 18 137/82 95 Room Air 07/24/25 00:11 99 H 07/23/25 22:54 98.2 F 97 H 18 141/84 H 94 Room Air 07/23/25 22:54 Room Air Laboratory Results Reviewed: CBC, CMP PG Care Time/CCT Total # of Minutes Spent Total Time Spent with Patient: Total time spent is greater than 50% in coordination of care (as documented) at patient's floor/unit and/or counseling patient: Coding Level of Care Code 92312 SUB INP/OBS CARE 3/50MIN Diagnoses Right sided abdominal pain R10.9 Abnormal LFTs R79.89 Tachycardia R00.0 Bacteriuria R82.71 Hypertension I10 Hypertension type: unspecified Type 2 diabetes mellitus E11.9 Hypothyroidism E03.9 Hypothyroidism type: unspecified Hypomagnesemia E83.42 (5) Hypertension Hypertension type: unspecified Qualified Code(s): I10 - Essential (primary) hypertension (7) Hypothyroidism Hypothyroidism type: unspecified Qualified Code(s): E03.9 - Hypothyroidism, unspecified"
[2025-07-24] MEDS: MAGNESIUM SULFATE / D5W 1 GM/100 ML BAG IV ONE (11:30)
[2025-07-24] MEDS: ACETAMINOPHEN 325 MG TAB PO PRN (16:35)
[2025-07-25 06:20] LABS: Hematocrit (blood only) 41.4 % (37.0-47.0); Hemoglobin 13.5 g/dL (12.0-16.0); Immature Granulocytes # (auto) 0.01 K/uL (0.01-0.20); Immature Granulocytes % (auto) 0.2 %; Mean Corpuscular Hemoglobin 28.2 pg (25.0-34.0); Mean Corpuscular Volume 86.6 fL (80.0-100.0); Platelet Count 213 K/uL (130-400); RDW Standard Deviation 43.7 fL (36.4-46.3); Red Blood Count 4.78 M/uL (4.20-5.40); White Blood Count 5.61 K/ul (4.8-10.8)
[2025-07-25 06:48] LABS: Anion Gap 8.0 (3-11); Blood Urea Nitrogen 31.0 mg/dl (6-23); Calcium 9.5 mg/dl (8.6-10.3); Carbon Dioxide 31.0 mmol/L (21-32); Chloride 100.0 mmol/L (98-107); Creatinine Clr Calc Pharmacy 56.8 ml/min; Glucose 167.0 mg/dl (70-99(Fasting)); Potassium 4.9 mmol/L (3.5-5.1); Sodium 139.0 mmol/L (136-145)
[2025-07-25 07:54] VITALS: RESP 20
--- NOTE | 2025-07-25 08:15 | Hospitalist Progress Note ---
"Date of Service July 25, 2025 Assessment & Plan (1) Right sided abdominal pain: (2) Abnormal LFTs: (3) Tachycardia: (4) Bacteriuria: (5) Hypertension: (6) Type 2 diabetes mellitus: (7) Hypothyroidism: (8) Hypomagnesemia: Plan 55 y/o F w/ PMHx IBS, Hypothyroidism, HTN, T2DM, and Lumbar Back Pain who presented with right-sided abdominal pain and markedly elevated blood pressures. #Undifferentiated Rt-sided Abd pain | Abnormal LFTs - S/P lap iliana & lab appendectomy; Pt Reports she had a repeat gastric emptying study scheduled but was then incarcerated d/t parole violation - can be arranged outpatient; Hepatitis panel negative; EBV w/ likely prior infection, Monospot negative; Last BM 07/23 sm -CT 06/10 WNL; Pt declined repeat abd CT d/t radiation therapy -KUB on admission w/ rt sided stool burden; Repeat KUB 07/21 demonstrated stool in transverse colon -07/22 MRCP w/out evidence of choledocholithiasis or other abnormalities to account for pain -Continue pain control, antiemetics, bentyl, cymbalta Cymbalta increased to 30mg BID, was on 90mg in past, per pt -Continue MiraLax daily -Stat Dulcolax suppository -Encourage Ambulation -Gluten Free diet -Suspect pain 2nd to constipation, biliary colic, pyelo, vs other Notable: Ankle bracelet removed for MRCP, was instructed by deportation officer it is her responsibility to call once d/c to have replaced. ?underlying relationship with issues with law and current sx -- consider further discussion in follow up. #Nausea -see discussion above; Ongoing nausea w/out vomiting. -Possible Delayed Gastric Emptying, may be contributing to nausea - Consider GI consult if nausea not improved after BM -Consider reinstating Reglan if nausea persists -Continue Bentyl #bacteriuria / UTI / ?pyelo on right - urine cx negative, but did have 2+ bacteria on admission u/a -Switch IV Ceftriaxone to PO Cefuroxime 500mg BID -- plan for 10 day total treatment, ends 07/30 -since no other pathology found consider presumptive Rx for UTI / right-sided pyelo and can complete course and convert to PO in AM #Tachycardia - RESOLVED; likely d/t severe abd pain on presentation, VS normalized quickly; H/H stable and TSH wnl #Hypertension -RESOLVED; Marine d/t severe abd pain on presentation, VS quickly normalized -Continue to monitor #GERD - no acute concerns -Continue Protonix QAM #Hypothyroidism - 07/20 TSH 0.493; was elevated last admission 05/2025 at 20; pt notes was not getting correct dose in [facility], dose now correct w/ wnl tsh #Diabetes - A1c 8.3 Home meds held and utilizing BSG AC/HS and SSI while inpatient. Continues on Lantus 10u BID #Anxiety / Mental Health - Hydroxyzine 50mg po q afternoon as needed and 100 mg po qHS Continue Gabapentin 300mg po AMHS Continue Duloxetine 30mg po qAM --> increased to 30mg BID as above and reports was on ~90mg in the past DVT prevention - Lovenox 40mg daily Dispo: Med/Tele - awaiting BM + improved sx of note - the [facility] parole office came to remove the ankle bracelet in order to have her MRCP reserve officer told nursing staff that at time of discharge the parole office is to be contacted before she is released as above is responsibility of the patient Admission and Anticipated Discharge Date Admission Date: July 20, 2025 Review of Systems Review of Systems: All systems reviewed & are unremarkable except as noted in Subjective Physical Exam Physical Exam: General: Pt is a 55 y/o obese F in NAD in bed. VS: reviewed, remarkable: HR 96 Skin: Warm and dry; no lesions or ulcerations Respiratory: CTA bilat, no adventitious sounds noted. Chest expansion is full and symmetrical Cardio: RRR no murmurs Abdomen: Round, normoactive BS x4, nontender to palpation MSK: FROM of extremities, no deformities Extremities: no edema Neuro: A&Ox4, cooperative Results & Data Results & Data Vital Signs (Past 12 Hours) Vital Signs Temp Pulse Pulse Resp BP BP Pulse Ox 07/25/25 07:54 97.2 F L 88 20 102/67 92 07/25/25 07:41 75 07/25/25 02:56 98.1 F 76 18 129/72 95 07/24/25 22:38 97.9 F 86 18 120/80 94 07/24/25 21:51 88 O2 Del Method 07/25/25 07:54 Room Air 07/25/25 07:41 12/09/25 02:56 Room Air 07/24/25 22:38 Room Air 07/24/25 21:51 Laboratory Results Reviewed: CBC, BMP, LFTs PG Care Time/CCT Total # of Minutes Spent Total Time Spent with Patient: Total time spent is greater than 50% in coordination of care (as documented) at patient's floor/unit and/or counseling patient: Coding Diagnoses Right sided abdominal pain R10.9 Abnormal LFTs R79.89 Tachycardia R00.0 Bacteriuria R82.71 Hypertension I10 Hypertension type: unspecified Type 2 diabetes mellitus E11.9 Hypothyroidism E03.9 Hypothyroidism type: unspecified Hypomagnesemia E83.42 (5) Hypertension Hypertension type: unspecified Qualified Code(s): I10 - Essential (primary) hypertension (7) Hypothyroidism Hypothyroidism type: unspecified Qualified Code(s): E03.9 - Hypothyroidism, unspecified"
[2025-07-25 08:29] LABS: Alanine Aminotransferase 114.0 U/L (7-52); Albumin Level 4.1 gm/dl (3.4-5.0); Alkaline Phosphatase 125.0 U/L (34-104); Bilirubin,Total 0.4 mg/dl (0.2-1.0); Total Protein 7.1 gm/dl (6.0-8.3)
[2025-07-25] MEDS ORDERED: ONDANSETRON 4 MG OD TAB PO PRN (10:53)
[2025-07-25 15:20] VITALS: BP 147/83; PULSE 106; TEMP 98.8; O2SAT 91
--- NOTE | 2025-07-25 18:10 | Discharge Summary ---
Discharge Summary Date of Service July 25, 2025 Principal Dx & Hospital Course #1 = Principal Diagnosis (1) Right sided abdominal pain: (2) Abnormal LFTs: (3) Tachycardia: (4) Bacteriuria: (5) Hypertension: (6) Type 2 diabetes mellitus: (7) Hypothyroidism: (8) Hypomagnesemia: Plan #Undifferentiated Rt-sided Abd pain | Abnormal LFTs - 55 y/o F w/ PMHx IBS, Hypothyroidism, HTN, T2DM, and Lumbar Back Pain who presented with right-sided abdominal pain and markedly elevated blood pressures. Pt declined CT d/t recent CT in 06/10 that was WNL. A KUB was done on admission which demonstrated Rt sided stool burden. A repeat KUB on 07/21 demonstrated that the stool had moved to the transverse colon. While PT was here, she received MiraLAX and Dulcolax which aided in having a bowel movement to resolve constipation. An MRCP was done on 07/22 in regards to abnormal LFTs seen on admission and was without evidence of choledocholithiasis or other abnormalities. Pts Cymbalta was increased to 30mg BID during her inpatient stay. Pt additionally had a Hepatitis panel that was negative and an EBV panel that revealed likely prior infection with a negative Monospot. Pts LFTs continued to down trend during hospitalization, she noted the AM of 07/25 that her LFTs often elevate when taking Acetaminophen. Tylenol and Tylenol containing products were then discontinued and pt was encouraged to avoid tylenol in the outpatient setting. Pt should follow-up with PCP within one week of discharge. #Nausea - Pt continued to experience Nausea throughout hospital stay. Despite Nausea, pt was able to consume 100% of her meals in addition to snacks without episodes of vomiting. If pt struggles with eating + N/V in the future, pt could consider re-pursuing gastric emptying study in outpatient setting. Pt was given Rx for Zofran which was sent to her pharmacy to help with any continued nausea. #bacteriuria / UTI / ?pyelo on right - urine cx negative, but did have 2+ bacteria on admission u/a on admission. D/T right sided pain, pt was given IV Rocephin and transitioned to Cefuroxime 500mg BID for a complete 10 day course of antibiotics which was sent to her pharmacy. #Tachycardia - RESOLVED; likely d/t severe abd pain on presentation, VS normalized quickly during stay; H/H stable and TSH wnl during admission. #Hypertension -RESOLVED; Likley d/t severe abd pain on presentation, VS quickly normalized and remained stable throughout admission. #GERD - no acute concerns, continue home regimen. #Hypothyroidism - 07/20 TSH 0.493; was elevated last admission 05/2025 at 20; pt notes was not getting correct dose in [facility], dose now correct w/ wnl tsh #Diabetes - A1c 8.3; continue home regimen #Anxiety / Mental Health - no acute concerns, continue home regimen. Was taking 30mg QAM during inpatient stay. Dispo: Home, self care; pt solely responsible for contacting parole office at time of discharge. Pt is aware of this + officers discussed with Nursing staf Admission HPI Per Admitting Provider Daiana Bhandari is a 55yo female with history of DM, Hypothyroidism, GERD presenting with several complaints. She states that she had and episode today where she felt her heartbeat in her ears and had double vision - this has happened four times in the past. She is concerned that this occurs when her blood pressure is spiking but has not checked her pressure during the time she is having the symptoms. She is also complaining of right sided abdominal pain and distention for the last three days as well as nausea that started today with non-bloody/non-bilious emesis. She feels overall constipated but has alternating constipation and diarrhea. Has had a colonoscopy performed at [facility] (unfortunately do not have access to these records). Patient states she had polyps. Patient is requesting that she not have a CT as she has had multiple in the past for similar pain and wishes to limit radiation exposure. In the ER she is markedly hypertensive on arrival, tachycardic ER Course: NSS x 2L Phenergan 12.5mg IV Zofran 4mg IV Magnesium 2gm IV Morphine 6mg IV Tramadol 50mg Discharge Exam General: Pt is a 55 y/o obese F in NAD in bed. VS: reviewed, remarkable: HR 96 Skin: Warm and dry; no lesions or ulcerations Respiratory: CTA bilat, no adventitious sounds noted. Chest expansion is full and symmetrical Cardio: RRR no murmurs Abdomen: Round, normoactive BS x4, nontender to palpation MSK: FROM of extremities, no deformities Extremities: no edema Neuro: A&Ox4, cooperative Discharge Plan Discharge Items Patient Disposition: Home - Self-Care Reason For Visit: ABDOMINAL PAIN, TACHYCARDIA Discharge Diagnosis: Abdominal pain Condition on Discharge: Fair Activity: Resume your previous activity Non-emergency contact: Primary Care Provider Call non-emergency contact if: you have any medication questions, your symptoms worsen, your pain is not controlled, your pain is worsening and you have a fever Follow-up/Referrals: Timoteo Muniz MD [Primary Care Provider] - (Follow-up within one week ) Diet: Regular Addtl Attending Provider Instructions: You were admitted to the hospital for abdominal pain and tachycardia. While you were in the hospital, an abdominal xray on admission revealed the presence of stool. A repeat abdominal xray on 07/23 demonstrated movement for a further point in the colon. You were given MiraLax and a suppository to aide in the movement of your bowels with good success. While you were here, it was noted that your LFTs were elevated. It was reported that you often have an elevation in LFTs when receiving Tylenol and Tylenol products were then discontinued for you. Please follow-up with your PCP within 1 week of discharge It was additionally reported that you continued to experience Nausea during your inpatient stay. A prescription of Zofran was sent to your pharmacy to help with these symptoms. It was additionally discovered that you had a UTI while you were in the hospital. A prescription of cefuroxime will be sent to your pharmacy, please take this antibiotic as prescribed. Medications: Your medication list has been reviewed and reconciled upon discharge to ensure accuracy and continuity of care. An updated list of all your medications is included with your hospital discharge paperwork. Please review this list closely, and make note of any changes. -We sent a new medication called Zoftan to your pharmacy. Take every 6 hours. Start this today to help with your nausea. -We sent a new medication called Cefuroxime to your pharmacy. Take twice daily. start this evening, this is an antibiotic to help with your UTI. Take your medications as instructed; do not skip a dose of your medicines. Make sure all of your doctors know every medicine you are taking (including [id number] medicines, vitamins, and supplements). Call your primary care provider before taking any new medicines (including over- the-counter medicines, vitamins, and supplements), because some of these may interact with your current medications, or may make your symptoms worse. Tell your primary care provider if you cannot afford your medications. Activity: You can do normal everyday activities as your body allows. Take rest breaks if you feel tired. Do not overexert. Stop activity if you have pain, shortness of breath or feel dizzy. Follow-up appointments: Make an appointment with your primary care physician within one week of discharge. A copy of this summary will be sent to them. Every time you see your primary care physician, or any other doctor, bring your medication list, and a list of questions. CONTACT YOUR PRIMARY CARE PROVIDER if you experience any of the following: Shortness of breath or difficulty breathing Fevers or chills Feeling tired with normal activity or experiencing dizziness or fainting Difficulty following your treatment plan, or difficulty taking medications CALL 911 OR GO TO THE EMERGENCY DEPARTMENT if you experience any of the following: Severe abdominal pain or nausea/vomiting Severe chest pain, or chest pain that radiates (moves) to your jaw or arm Sudden, severe shortness of breath or difficulty breathing Thank you for allowing us to participate in your care. Pending Studies at Discharge: No Stand-Alone Forms: My [facility] [employer], Work/School Release, Smoking Cessation Medications and DC Order Prescriptions: New cefuroxime axetil 500 mg Tablet 500 mg PO BIDM 5 Days Qty: 10 0RF ondansetron 4 mg tablet,disintegrating 4 mg PO Q6H PRN (Reason: nausea and vomiting) Qty: 20 0RF Continued (DME) OneTouch Verio test strips Strip See Rx Instructions .Route Qty: 100 0RF Rx Instructions: As directed. Check blood glucose twice a day (DME) OneTouch Verio test strips Strip See Rx Instructions .Route Qty: 100 0RF Rx Instructions: As directed (DME) lancets [OneTouch Delica Plus Lancet] 33 gauge misc See Rx Instructions .Route Qty: 100 0RF Rx Instructions: As directed (DME) pen needle, diabetic [Pen Needle] 32 gauge x 5/32" needle See Rx Instructions .Route Qty: 100 0RF Rx Instructions: As directed gabapentin 300 mg capsule 300 mg PO AMHS acetaminophen [Tylenol] 325 mg Tablet 650 mg PO TID PRN (Reason: Pain) albuterol sulfate 2.5 mg /3 mL (0.083 %) Solution For Nebulization 2.5 mg INHALATION TID PRN (Reason: Shortness Of Breath Or Wheezing) sumatriptan succinate [Imitrex] 50 mg Tablet 50 mg PO DIRECTED PRN (Reason: MIGRAINE HEADACHES) Rx Instructions: ON HOLD take 1 tab at onset of headache; if no relief may repeat 1 tab after at least 2 hrs; max = 4 tabs/24 hr dicyclomine 10 mg Capsule 10 mg PO HS PRN (Reason: ABD DISCOMFORT) insulin glargine 100 unit/mL (3 mL) insulin pen 28 unit subcut HS duloxetine 30 mg capsule,delayed release(DR/EC) 30 mg PO QAM calcium carbonate [Tums] 200 mg calcium (500 mg) Tablet,Chewable 1,500 mg PO DAILY Qty: 30 0RF levothyroxine [Synthroid] 200 mcg Tablet 200 mcg PO DAILYBB Qty: 30 0RF ergocalciferol (vitamin D2) 1,250 mcg (50,000 unit) Capsule 1,250 mcg PO Q7D@0900 Qty: 4 0RF Rx Instructions: was not in stock hydroxyzine pamoate 50 mg Capsule 50 mg PO HS Qty: 30 0RF omeprazole 20 mg Capsule,Delayed Release(Dr/Ec) 20 mg PO BID Qty: 60 0RF polyethylene glycol 3350 [Miralax] 17 gram/dose Powder 17 g PO DAILY Qty: 119 0RF insulin aspart U-100 100 unit/mL (3 mL) insulin pen 1 sliding scale dose subcut USEASDIRECTD Qty: 15 0RF Rx Instructions: Take with each meal as per your written sliding scale (DME) pen needle, diabetic [Pen Needle] 32 gauge x 5/32" needle See Rx Instructions .Route Qty: 100 0RF Rx Instructions: As directed with insulin pens four times a day Discharge Orders: Discharge Order (Routine); Ordered 07/25/25 Ordered By: Pamela Angeles Admission Data Admit Date/Time: 07/20/25 22:39 Attending Provider: Asif Wang Admit Provider: Carina Santos Primary Care Provider: Timoteo Muniz Other Providers: Carina Santos Other Interventions: Discharge Summary Assessment (RN) Last Done: 07/25/25 19:20 Hospital Stay Data Consultations 07/20/25 21:53 ED Decision to Admit Stat Diagnostic Imagining Performed Chest X-Ray 07/20/25 19:07 Chest radiograph, one view History: Chest pain Comparison: None Findings: Single AP view of the chest performed. No focal consolidation or pleural effusion. No pneumothorax. The cardiomediastinal silhouette is within normal limits. Normal pulmonary vascularity. No evidence for lymphadenopathy. No visualized bony or soft tissue abnormality. Impression: Normal chest radiograph Electronically signed by Tk Drummond 07-20-2025 7:48 PM KUB X-Ray 07/20/25 19:19 Exam(s): XR KUB EXAM: XR Abdomen, 1 View CLINICAL HISTORY: poss constipation. TECHNIQUE: Frontal supine view of the abdomen/pelvis. COMPARISON: No relevant prior studies available. FINDINGS: Gastrointestinal tract: Mild scattered bowel gas in nondilated small and large bowel throughout the abdomen and pelvis. Mild stool burden in the right colon. No appreciable stool burden in the distal transverse or descending colon. Questionable minimal stool in the rectosigmoid in the pelvis. Bones/joints: No significant abnormality. No acute fracture. IMPRESSION: Nonspecific, nonobstructive bowel gas pattern. Mild stool burden. Electronically signed by: Evan Daly MD 07/20/25 20:15 PM KUB X-Ray 07/21/25 15:36 Abdominal radiograph, one view History: Abdominal pain Comparison: 05/23/2025 Findings: Single AP view of the abdomen performed. The bowel gas pattern appears nonobstructive. Moderate colonic stool. No pneumatosis or portal venous gas. No abnormal calcifications project over the abdomen. No acute abnormality of the bony structures. Impression: Nonobstructive bowel gas pattern Electronically signed by Tk Drummond 07-21-2025 5:21 PM Cholangiopancreatography MRI 07/22/25 11:38 MRCP Without Contrast CLINICAL HISTORY: Abdominal pain TECHNIQUE: Images were acquired without intravenous gadolinium contrast through the upper abdomen Comparison study: MRCP from 02/16/2024 FINDINGS: Biliary Tree: Dilated CBD up to 10 mm, similar to prior. Mild intrahepatic biliary ductal dilatation again seen Pancreas: No pancreatic duct dilatation. No visualized cyst. Liver: Normal noncontrast appearance. Gallbladder: Cholecystectomy Spleen: Normal Kidneys: Normal Adrenal glands: Normal Bowel: No normally dilated bowel. Lymph nodes: No pathologic lymph adenopathy. Blood vessels: No aortic aneurysm. Lung bases: Grossly clear Bones and soft tissues: Unremarkable Mesentery and abdominal wall: Unremarkable Ascites: None IMPRESSION: No acute findings or significant change. Cholecystectomy with dilated biliary system, likely related to reservoir effect, similar to 02/16/2024 Electronically signed by Tk Drummond 07-22-2025 5:10 PM 07/22/25 11:38 MR MRCP Routine Discharge Instructions Given to Patient (Per Discharging Provider) You were admitted to the hospital for abdominal pain and tachycardia. While you were in the hospital, an abdominal xray on admission revealed the presence of stool. A repeat abdominal xray on 07/23 demonstrated movement for a further point in the colon. You were given MiraLax and a suppository to aide in the movement of your bowels with good success. While you were here, it was noted that your LFTs were elevated. It was reported that you often have an elevation in LFTs when receiving Tylenol and Tylenol products were then discontinued for you. Please follow-up with your PCP within 1 week of discharge It was additionally reported that you continued to experience Nausea during your inpatient stay. A prescription of Zofran was sent to your pharmacy to help with these symptoms. It was additionally discovered that you had a UTI while you were in the hospital. A prescription of cefuroxime will be sent to your pharmacy, please take this antibiotic as prescribed. Medications: Your medication list has been reviewed and reconciled upon discharge to ensure accuracy and continuity of care. An updated list of all your medications is included with your hospital discharge paperwork. Please review this list closely, and make note of any changes. -We sent a new medication called Zoftan to your pharmacy. Take every 6 hours. Start this today to help with your nausea. -We sent a new medication called Cefuroxime to your pharmacy. Take twice daily. start this evening, this is an antibiotic to help with your UTI. Take your medications as instructed; do not skip a dose of your medicines. Make sure all of your doctors know every medicine you are taking (including over-the- counter medicines, vitamins, and supplements). Call your primary care provider before taking any new medicines (including over- the-counter medicines, vitamins, and supplements), because some of these may interact with your current medications, or may make your symptoms worse. Tell your primary care provider if you cannot afford your medications. Activity: You can do normal everyday activities as your body allows. Take rest breaks if you feel tired. Do not overexert. Stop activity if you have pain, shortness of breath or feel dizzy. Follow-up appointments: Make an appointment with your primary care physician within one week of discharge. A copy of this summary will be sent to them. Every time you see your primary care physician, or any other doctor, bring your medication list, and a list of questions. CONTACT YOUR PRIMARY CARE PROVIDER if you experience any of the following: Shortness of breath or difficulty breathing Fevers or chills Feeling tired with normal activity or experiencing dizziness or fainting Difficulty following your treatment plan, or difficulty taking medications CALL 911 OR GO TO THE EMERGENCY DEPARTMENT if you experience any of the following: Severe abdominal pain or nausea/vomiting Severe chest pain, or chest pain that radiates (moves) to your jaw or arm Sudden, severe shortness of breath or difficulty breathing Thank you for allowing us to participate in your care. Total Time Total Time Spent Total Time Spent (In Minutes): Time spent day of discharge 55 minutes including direct patient care, medication reconciliation, documentation, review of labs and images, and coordination of care. Coding Level of Care Code 95055 INP/OBS DISCH >30 MIN Diagnoses Right sided abdominal pain R10.9 Abnormal LFTs R79.89 Tachycardia R00.0 Bacteriuria R82.71 Hypertension I10 Hypertension type: unspecified Type 2 diabetes mellitus E11.9 Hypothyroidism E03.9 Hypothyroidism type: unspecified Hypomagnesemia E83.42
== END 2025-07-25 19:31 | disposition home or self-care (01) | DRG 392 ==
LOC: SUATTDRO → ED 18:54 → SUATTDRO 22:39 → 2N 22:39